=== PATIENT | female | born 1960 | race African-American/Black ===

== ENCOUNTER 2016-10-09 04:11 | Inpatient (IN) | payer OTHER ==
--- NOTE | 2016-10-09 04:41 | PDOC ---
Attending Attestation - Resident Resident Name: ShmuelmanSom - ED Attending Attestation I have performed the following: I have examined & evaluated the patient, The case was reviewed & discussed with the resident, I agree w/resident's findings & plan, Exceptions are as noted - HPI HPI: 56 yo F history ALS presents with resp distress. As per EMS, the son called as she appeared to be gasping. She had HR 178 when they arrived. They placed her on BiPAP for low O2Sat, and she seemed to improve- less work of breathing, and her HR decreased. The son notes that she has been coughing when she drinks thin liquids recently. She has been tolerating solids PO. No recent fever, cough. She has very limited communication secondary to the ALS, and does not walk. - Physicial Exam PE: GENERAL: Awake, alert, in no acute distress. +BiPAP. HEAD: No signs of trauma EYES: PERRLA, EOMI, sclera anicteric, conjunctiva clear ENT: Auricles normal inspection, hearing grossly normal, nares patent, oropharynx clear without exudates. Dry mucosa NECK: Normal ROM, supple, no lymphadenopathy, JVD, or masses LUNGS: Dec air entry diffusely, but worse on L side. HEART: Tachycardic, normal S1 and S2, no murmurs, rubs or gallops ABDOMEN: Soft, nontender, normoactive bowel sounds. No guarding, no rebound. No masses EXTREMITIES: Normal range of motion, no edema. No clubbing or cyanosis. No cords, erythema, or tenderness NEUROLOGICAL: Limited by ALS. Patient is able to track with her eyes. SKIN: Warm, Dry, normal turgor, no rashes or lesions noted. - Medical Decision Making Patient with ALS, noted to have labored respirations with dec air entry on L side. Will start sepsis workup, likely admission.
[2016-10-09 05:03] LABS: VENOUS BLOOD GAS HCO3 30.3 meq/L (19-25); VENOUS PH 7.32 (7.32-7.42)
--- NOTE | 2016-10-09 05:04 | PDOC ---
History of Present Illness <Aaliyah Rodrigez - Last Filed: 10/09/16 06:28> - General History Source: EMS, Family (Son) - History of Present Illness Initial Comments: 10/09/16 04:51 The patient is a 56F with a PMH of ALS, HTN, and hypothyroidism who presents to the ED via EMS for increased work of breathing. Per EMS, the patient had increased work of breathing on their arrival, she was tachypneic, tachycardic into the 170's, and was satting around 88. She also had decreased lung sounds. Per the son, she has had recent difficulty with clearing mucous in her nose and throat and they use a machine to assist with this. During the use of the machine tonight around 2300, the son noticed that the patient wasn't well. Around 0300 the son was woken up by the patient's and they called EMS. The son stated that on /Saturday, he noticed that the patient's breathing was changing and stated that she was gasping and using accessory muscles to breath. No sick contacts, no recent travel. The patient has a history of bedrest , no history of cancer. Allergies: NKDA Surg: noncontributory Social: does not drink, smoke, or use recreational drugs <Som Fitzgerald - Last Filed: 10/09/16 06:46> - General Chief Complaint: Respiratory Distress Stated Complaint: DIFFICULTY BREATHING Time Seen by Provider: 10/09/16 04:38 Past History <Aaliyah Rodrigez - Last Filed: 10/09/16 06:28> - Past Medical History Thyroid Disease: Yes (HYPO) - Psycho/Social/Smoking Cessation Hx Anxiety: No Suicidal Ideation: No Smoking Status: No Smoking History: Unknown if ever smoked Have you smoked in the past 12 months: No Number of Cigarettes Smoked Daily: 0 Information on smoking cessation initiated: No Hx Alcohol Use: No Drug/Substance Use Hx: No Substance Use Type: None Hx Substance Use Treatment: No <Som Fitzgerald - Last Filed: 10/09/16 06:46> - Past Medical History Allergies/Adverse Reactions: Allergies Allergy/AdvReac Type Severity Reaction Status Date / Time No Known Allergies Allergy Verified 10/09/16 04:25 Home Medications: Ambulatory Orders Amlodipine Besylate [Norvasc -] 5 mg PO DAILY 10/09/16 Lisinopril [Prinivil] 10 mg PO DAILY 10/09/16 Review of Systems - Review of Systems Able to Perform ROS?: Yes (Limited ROS) Is the patient limited [place]er proficient: No Constitutional: Yes: Other (Cold symptoms). No: Chills, Fever, Loss of Appetite Respiratory: Yes: Shortness of Breath, SOB at Rest. No: Cough Cardiac (ROS): No: Chest Pain ABD/GI: Yes: Other (abd pain) : No: Dysuria, Discharge <Som Fitzgerald - Last Filed: 10/09/16 06:46> *Physical Exam - Vital Signs Last Vital Signs Temp Pulse Resp BP Pulse Ox 96.8 F L 98 H 22 100/78 100 10/09/16 04:25 10/09/16 06:21 10/09/16 06:21 10/09/16 06:21 10/09/16 06:21 <Aaliyah Rodrigez - Last Filed: 10/09/16 06:28> - Vital Signs Last Vital Signs Temp Pulse Resp BP Pulse Ox 96.8 F L 118 H 28 H 141/94 99 10/09/16 04:25 10/09/16 04:25 10/09/16 04:25 10/09/16 04:25 10/09/16 04:32 - Physical Exam General Appearance: Yes: Nourished, Mild Distress, Other (Bipap machine in place ) HEENT: positive: Hearing Grossly Normal Respiratory/Chest: positive: Respiratory Distress. negative: Normal Breath Sounds (Limited lung exam d/t patient's habitus and position), Accessory Muscle Use Cardiovascular: positive: Regular Rhythm, S1, S2, Tachycardia Gastrointestinal/Abdominal: positive: Flat, Soft. negative: Tender Extremity: positive: Swelling (R calf slightly larger than L calf). negative: Calf Tenderness Neurologic: positive: Alert <Som Fitzgerald - Last Filed: 10/09/16 06:46> Heart Score/ECG Review - ECG Impressions Tachycardia: Sinus Comment:: 10/09/16 05:13 enlarged p wave w/ 2 peaks may be indicative of atrial enlargement. p wave inversion in V1 and V2. could be 2/2 to lead placement. <Som Fitzgerald - Last Filed: 10/09/16 06:46> ED Treatment Course - LABORATORY CBC & Chemistry Diagram: 10/09/16 04:51 10/09/16 04:51 - ADDITIONAL ORDERS Additional order review: Laboratory Results 10/09/16 10/09/16 10/09/16 04:51 04:51 04:51 INR PTT (Actin FS) D-Dimer < 200 VBG pH 7.32 POC VBG pCO2 60.8 H* POC VBG pO2 40.5 Mixed VBG HCO3 30.3 H Sodium Potassium Chloride Carbon Dioxide Anion Gap BUN Creatinine Creat Clearance w eGFR Random Glucose Lactic Acid Calcium Total Bilirubin AST ALT Alkaline Phosphatase Creatine Kinase Troponin I B-Natriuretic Peptide 176.02 H Total Protein Albumin 10/09/16 10/09/16 10/09/16 04:51 04:51 04:51 INR 1.05 PTT (Actin FS) 26.7 L D-Dimer VBG pH POC VBG pCO2 POC VBG pO2 Mixed VBG HCO3 Sodium 141 Potassium 4.0 Chloride 102 Carbon Dioxide 29 Anion Gap 10 BUN 12 Creatinine 0.3 L Creat Clearance w eGFR > 60 Random Glucose 158 H Lactic Acid 1.5 Calcium 9.3 Total Bilirubin 0.3 AST 20 ALT 25 Alkaline Phosphatase 129 H Creatine Kinase 68 Troponin I < 0.02 B-Natriuretic Peptide Total Protein 7.8 Albumin 3.6 10/09/16 04:51 RBC 5.10 MCV 93.2 MCHC 32.1 RDW 15.1 MPV 9.8 Neutrophils % 86.7 H Lymphocytes % 7.9 L Monocytes % 4.6 Eosinophils % 0.1 Basophils % 0.7 - RADIOLOGY Radiology Studies Ordered: Category Date Time Status CHEST X-RAY PORTABLE* [RAD] Stat Radiology 10/09/16 04:34 Taken - Medications Given in the ED: ED Medications Discontinued Medications Generic Name Dose Route Start Last Admin Trade Name Freq PRN Reason Stop Dose Admin Diltiazem HCl 10 mg 10/09/16 06:15 10/09/16 06:20 Cardizem Injection - IVPUSH 10/09/16 06:16 10 mg ONCE ONE Administration <Aaliyah Rodrigez - Last Filed: 10/09/16 06:28> - LABORATORY CBC & Chemistry Diagram: 10/09/16 04:51 10/09/16 04:51 <Som Fitzgerald - Last Filed: 10/09/16 06:46> Medical Decision Making - Medical Decision Making 10/09/16 06:28 Pt has had multiple episodes of afib that have been self-limited, max heart rate in 180s. Two pushes of cardizem given, but each time the afib broke before the injection was complete. Case already discussed with Dr. Wolfe, during the call patient went into afib. I subsequently discussed with Dr. Zendejas, who approved for ICU. <Aaliyah Rodriegz - Last Filed: 10/09/16 06:28> - Medical Decision Making 10/09/16 05:14 Patient is a 56F with a PMH of HTN, ALS, and hypotension who presents via EMS with increased work of breathing. Due to the patient's difficulty in controlling her throat muscles, aspiration pna is high on the differential. In addition to this, the patient's bedrest increases her likelihood of having a PE. This will be worked up when other workups have returned as negative. The sepsis protocol is being followed. I will update the family as results come in. 10/09/16 05:47 Patient has a white count of 10.9. CXR shows infiltrate on the L upper lobe and L pleural effusion. 10/09/16 06:22 ICU attending was called and approves admission. 10/09/16 06:45 Patient was signed out to day team. Pending bed upstairs. <Som Fitzgerald - Last Filed: 10/09/16 06:46> *DC/Admit/Observation/Transfer - Discharge Dispostion Admit: Yes <Aaliyah Rodrigez - Last Filed: 10/09/16 06:28> - Discharge Dispostion Admit: Yes - Transfer to Acute Care Facility Accepting Physician:: howard - Attestations Physician Attestion: 10/09/16 06:23 I, Dr. Som Fitzgerald, attest that this document has been prepared under my direction and personally reviewed by me in its entirety. I further attest, that it accurately reflects all work, treatment, procedures and medical decision -making performed by me. <Som Fitzgerald - Last Filed: 10/09/16 06:46> Diagnosis at time of Disposition: Paroxysmal atrial fibrillation, Pleural effusion - Discharge Dispostion Condition at time of disposition: Critical - Referrals
[2016-10-09 05:11] LABS: BASOPHIL 0.7 % (0-2.0); EOSINOPHIL 0.1 % (0-4.5); MCH 29.9 pg (25.7-33.7); MCHC 32.1 g/dl (32.0-36.0); MEAN CELL VOLUME 93.2 fl (80-96); MEAN PLT VOLUME 9.8 fl (7.5-11.1); NEUTROPHILS 86.7 % (42.8-82.8); PLATELET COUNT 238 K/MM3 (134-434); RDW 15.1 % (11.6-15.6); WHITE BLOOD COUNT 10.9 K/mm3 (4.0-10.0)
[2016-10-09 05:20] LABS: INR 1.05 (0.82-1.09); PROTHROMBIN TIME (PATIENT) 11.6 SEC (9.98-11.88)
[2016-10-09 05:23] LABS: ACTIVATED PTT 26.7 SECONDS (26.9-34.4)
[2016-10-09 05:37] LABS: ALBUMIN 3.6 g/dl (3.4-5.0); ANION GAP 10 (8-16); BILIRUBIN,TOTAL 0.3 mg/dL (0.2-1.0); CALCIUM 9.3 mg/dL (8.5-10.1); CO2 29 mmol/L (21-32); CREATININE 0.3 mg/dL (0.55-1.02); GLUCOSE,RANDOM 158 mg/dL (74-106); SGOT/AST 20 U/L (15-37); SGPT/ALT 25 U/L (12-78); TOT PROT 7.8 g/dl (6.4-8.2)
[2016-10-09 05:39] LABS: ALK PHOS 129 U/L (45-117); TROPONIN I < 0.02 ng/ml (0.00-0.05)
[2016-10-09] MEDS ORDERED: dilTIAZem HCL 50 MG/10 ML - 10 ML VIAL IVPUSH ONE ×3 (06:15→09:30)
[2016-10-09] MEDS: DEXTROSE 5%-0.45% SALINE 1,000 ML IV SCH ×2 (06:43→23:10)
[2016-10-09 07:15] LABS: ARTERIAL BLD GAS O2 SATURATION 99.8 % (90-98.9); ARTERIAL BLOOD GAS BASE EXCESS 3.7 meq/l (-2-2); ARTERIAL BLOOD GAS HCO3 29.8 meq/L (22-26); ARTERIAL BLOOD GAS pH 7.37 (7.35-7.45)
[2016-10-09 07:32] LABS: ALLENS TEST POSITIVE; ART PUNCT SITE RIGHT RADIAL; LPM/O2% 35%; METHEMOGLOBIN 0.9 % (0.4-1.5); PT. ON O2? YES
[2016-10-09 07:33] LABS: VENT RATE 14
[2016-10-09] MEDS: DILTIAZEM INJECTION 125 MG in DEXTROSE 5%-WATER - 100 ML IVPB SCH ×2 (09:00→23:11)
--- NOTE | 2016-10-09 09:10 | PN ---
Physical Exam: SUBJECTIVE: Patient seen and examined OBJECTIVE: Vital Signs Period Temp Pulse Resp BP Sys/Hatch Pulse Ox Last 24 Hr 97.6 F 97 18 117/88 100 GENERAL: The patient is awake, alert, and fully oriented, in no acute distress. HEAD: Normal with no signs of trauma. EYES: PERRL, extraocular movements intact, sclera anicteric, conjunctiva clear. No ptosis. ENT: Ears normal, nares patent, oropharynx clear without exudates, moist mucous membranes. NECK: Trachea midline, full range of motion, supple. LUNGS: Breath sounds equal, clear to auscultation bilaterally, no wheezes, no crackles, no accessory muscle use. HEART: Regular rate and rhythm, S1, S2 without murmur, rub or gallop. ABDOMEN: Soft, nontender, nondistended, normoactive bowel sounds, no guarding, no rebound, no hepatosplenomegaly, no masses. EXTREMITIES: 2+ pulses, warm, well-perfused, no edema. NEUROLOGICAL: Cranial nerves II through XII grossly intact. Normal speech, gait not observed. PSYCH: Normal mood, normal affect. SKIN: Warm, dry, normal turgor, no rashes or lesions noted Laboratory Results - last 24 hr 10/09/16 07:00 Puncture Site Right radial ABG pH 7.37 ABG pCO2 at Pt Temp 52.4 H ABG pO2 at Pt Temp 150.0 H ABG HCO3 29.8 H ABG O2 Sat (Measured) 99.8 H* ABG O2 Content 20.9 ABG Base Excess 3.7 H Corwin Test Positive Carboxyhemoglobin 1.5 Methemoglobin 0.9 O2 Delivery Device Bipap 12/6 Oxygen Flow Rate 35% Vent Rate 14 PEEP 0.0 Active Medications Generic Name Dose Route Start Last Admin Trade Name Freq PRN Reason Stop Dose Admin Amlodipine Besylate 5 mg 10/09/16 10:00 Norvasc - PO DAILY [facility] Heparin Sodium (Porcine) 5,000 unit 10/09/16 10:00 Heparin - SQ BID [facility] Azithromycin 250 mls @ 250 mls/hr 10/09/16 10:00 Zithromax 500mg Ivpb (Pre-Docked) IVPB DAILY [facility] Ceftriaxone Sodium 50 mls @ 100 mls/hr 10/09/16 10:00 Rocephin 1gm Ivpb (Pre-Docked) IVPB DAILY [facility] Dextrose/Sodium Chloride 1,000 mls @ 75 mls/hr 10/09/16 06:45 10/09/16 06:43 D5-1/2ns - IV 75 mls/hr ASDIR SILVIA Administration Lisinopril 10 mg 10/09/16 10:00 Prinivil PO DAILY [facility] ASSESSMENT/PLAN: Problem List - Problems (1) Paroxysmal atrial fibrillation Code(s): I48.0 - PAROXYSMAL ATRIAL FIBRILLATION Visit type - Emergency Visit Emergency Visit: No - New Patient This patient is new to me today: Yes Date on this admission: 10/09/16 - Critical Care Critical Care patient: Yes Total Critical Care Time (in minutes): 45 Critical Care Statement: The care of this patient involved high complexity decision making to prevent further life threatening deterioration of the patient 's condition and/or to evalute & treat vital organ system(s) failure or risk of failure.
--- NOTE | 2016-10-09 09:11 | CONSULT ---
Consultation: REQUESTING PROVIDER: Dr. Wolfe CONSULT REQUEST: We have been asked to medically evaluate this patient for respiratory distress and paroxysmal atrial fibrillation in the ICU. HISTORY OF PRESENT ILLNESS: 56 year old female with a past medical history of amyotrophic lateral sclerosis , hypertension, and hyperthyroidism (previously on 5mg methimazole) presented this morning to the ED due to tachycardia, tachypnea, and increased work of breathing. Her O2 saturation was found to be 88%. She was transferred to the ICU with new onset paroxysmal atrial fibrillation (88bpm-170bpm). Pt was given several cardizem pushes and began on cardizem drip. Her rate stabilized. Pt is currently in no acute distress and denies any chest pain, SOB, wheezing, fever, chills, leg pain. Allergies: NKDA REVIEW OF SYSTEMS: CONSTITUTIONAL: Absent: fever, chills, diaphoresis, generalized weakness, malaise, loss of appetite, weight change HEENT: Absent: rhinorrhea, nasal congestion, throat pain, throat swelling, difficulty swallowing, mouth swelling, ear pain, eye pain, visual changes CARDIOVASCULAR: palpitations, irregular heart rate Absent: chest pain, syncope, lightheadedness, peripheral edema RESPIRATORY: Absent: cough, dyspnea with exertion, orthopnea, wheezing, stridor, hemoptysis, shortness of breath GASTROINTESTINAL: Absent: abdominal pain, abdominal distension, nausea, vomiting, diarrhea, constipation, melena, hematochezia GENITOURINARY: Absent: dysuria, frequency, urgency, hesitancy, hematuria, flank pain, genital pain MUSCULOSKELETAL: Absent: myalgia, arthralgia, joint swelling, back pain, neck pain SKIN: Absent: rash, itching, pallor HEMATOLOGIC/IMMUNOLOGIC: Absent: easy bleeding, easy bruising, lymphadenopathy, frequent infections ENDOCRINE: Absent: unexplained weight gain, unexplained weight loss, heat intolerance, cold intolerance NEUROLOGIC: weakness due to ALS Absent: headache, dizziness, seizure, mental status changes, bladder or bowel incontinence PSYCHIATRIC: Absent: anxiety, depression, suicidal or homicidal ideation, hallucinations. PHYSICAL EXAMINATION Vital Signs - 24 hr 10/09/16 10/09/16 07:37 07:40 Temperature 97.6 F Pulse Rate 97 H Respiratory 18 Rate Blood Pressure 117/88 O2 Sat by Pulse 100 Oximetry (%) GENERAL: Awake, alert, in no acute distress. HEAD: Normal with no signs of trauma. EYES: Pupils equal, round and reactive to light, extraocular movements intact, sclera anicteric, conjunctiva clear. No lid lag. EARS, NOSE, THROAT: Ears normal, nares patent, oropharynx clear without exudates. Moist mucous membranes. NECK: Normal range of motion, supple without lymphadenopathy, JVD, or masses. LUNGS: Breath sounds equal, clear to auscultation bilaterally. No wheezes, and no crackles. No accessory muscle use. HEART: Irregular rate/rhythm, normal S1 and S2 without murmur, rub or gallop. ABDOMEN: Soft, nontender, not distended, normoactive bowel sounds, no guarding, no rebound, no masses. No hepatomegaly or splenomegaly. MUSCULOSKELETAL: No bony deformities or tenderness. No CVA tenderness. UPPER EXTREMITIES: 2+ pulses, warm, well-perfused. No cyanosis. No clubbing. Cap refill <2 seconds. No peripheral edema. LOWER EXTREMITIES: 2+ pulses, warm, well-perfused. No calf tenderness. No peripheral edema. NEUROLOGICAL: Cranial nerves II-XII intact. Speech limited due to neurological status. Unable to assess gait due to neurological status. PSYCHIATRIC: Cooperative. Good eye contact. SKIN: Warm, dry, normal turgor, no rashes or lesions noted. CBC, BMP 10/09/16 04:51 10/09/16 04:51 TSH 0.61 (0.358-3.74) Active Medications Generic Name Dose Route Start Last Admin Trade Name Freq PRN Reason Stop Dose Admin Amlodipine Besylate 5 mg 10/09/16 10:00 Norvasc - PO DAILY [facility] Heparin Sodium (Porcine) 5,000 unit 10/09/16 10:00 Heparin - SQ BID [facility] Azithromycin 250 mls @ 250 mls/hr 10/09/16 10:00 Zithromax 500mg Ivpb (Pre-Docked) IVPB DAILY [facility] Ceftriaxone Sodium 50 mls @ 100 mls/hr 10/09/16 10:00 Rocephin 1gm Ivpb (Pre-Docked) IVPB DAILY [facility] Dextrose/Sodium Chloride 1,000 mls @ 75 mls/hr 10/09/16 06:45 10/09/16 06:43 D5-1/2ns - IV 75 mls/hr ASDIR SILVAI Administration Lisinopril 10 mg 10/09/16 10:00 Prinivil PO DAILY [facility] EKG: atrial fibrillation with rate in 140's ASSESSMENT/PLAN: 56 year old female with pmh of HTN, hyperthyroidism ALS. Pt is being monitored in the ICU with shortness of breath and paroxysmal atrial fibrillation resolving Neuro: patient has ALS -unable to ambulate on her own, rotate the patient Cardio: new onset paroxysmal atrial fibrillation likely 2/2 hyperthyroidism vs PE vs sepsis vs aspiration pneumonia -TSH normal, measure free T4 in the AM -US b/l legs to r/u DVT -D/C norvasc -D/C cardizem -Start metoprolol 50mg BID -continue lisinopril 10mg PO FEN: -continue IVF @ 75ml/hr -consult speech and swallow to evaluate for feeding tube necessity Proph: -DC heparin -Start lovenox 70mg BID -cont ceftriaxone and azithromycin Dispo: We will continue to follow the patient. Thank you for this consultative opportunity. Problem List - Problems (1) Paroxysmal atrial fibrillation Code(s): I48.0 - PAROXYSMAL ATRIAL FIBRILLATION Visit type - Emergency Visit Emergency Visit: No - New Patient This patient is new to me today: Yes Date on this admission: 10/09/16 - Critical Care Critical Care patient: Yes Total Critical Care Time (in minutes): 45 Critical Care Statement: The care of this patient involved high complexity decision making to prevent further life threatening deterioration of the patient 's condition and/or to evalute & treat vital organ system(s) failure or risk of failure.
[2016-10-09] MEDS ORDERED: dilTIAZem HCL 125 MG/25 ML - 25 ML VIAL ONE (09:29)
[2016-10-09] MEDS ORDERED: dilTIAZem HCL 125 MG/25 ML - 5 ML VIAL ONE (09:35)
[2016-10-09] MEDS ORDERED: LISINOPRIL 10 MG TABLET (FP) PO SCH (10:00)
[2016-10-09] MEDS ORDERED: AZITHROMYCIN IVPB 250 ML IVPB SCH (10:00)
[2016-10-09] MEDS ORDERED: HEPARIN NA (PORCINE) 5,000 UNITS/ML 1ML VIAL SQ SCH (10:00)
[2016-10-09] MEDS ORDERED: CEFTRIAXONE 50 ML IVPB SCH (10:00)
[2016-10-09] MEDS ORDERED: amLODIPine BESYLATE 5 MG TABLET (FP) PO SCH (10:00)
[2016-10-09] MEDS ORDERED: DILTIAZEM INJECTION 125 MG in DEXTROSE 5%-WATER - 100 ML IVPB SCH (12:15)
[2016-10-09 12:45] VITALS: BMI 23.4
--- NOTE | 2016-10-09 12:55 | HP ---
Admitting History and Physical - Admission Chief Complaint: 56 y.o F with advanced ALS was admitted to [facility] with respiratory distress and PAF-with VR 170.. Admitted to ICU for further management. History of Present Illness: GOiter. Hyperthyroidism on PO Methimazole. 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) Cardiovascular: Yes: HTN, Hyperlipdemia Gastrointestinal: No: Ascites, Cancer, Constipation, Crohn's Disease, Diverticulitis, Diverticulosis, Esophageal Varices, Gastritis, GERD, GI Bleed, Hemorrhoids, Hiatal Hernia, Inflamatory Bowel Disease, Irritable Bowel Disease, Pancreatitis, Peptic Ulcer Disease, Ulcerative Colitis, Other Hepatobiliary: No: Cirrhosis, Cholelithiasis, Cholecystitis, Choledocholithiasis , Hepatitis A, Hepatitis B, Hepatitis C, Other Renal/: No: Renal Failure, Renal Inusuff, BPH, Cancer, Hematuria, Hemodialysis , Neurogenic Bladder, Renal Calculi, UTI, Other Heme/Onc: No: Anemia, B12 Deficiency, Bleeding Disorder, Cancer, Current Chemotherapy, Current Radiation Therapy, Hemochromatosis, Hypercoaguable State, Myeloproliferative Synd, Sickle Cell Disease, Sickle Cell Trait, Thrombocytopenia, Other Infectious Disease: No: AIDS, C-Diff, Herpes Zoster, HIV, MRSA, STD's, Tuberculosis, VREF, Other Psych: No: Addictions, Anxiety, Bipolar, Depression, Panic, Psychosis, Schizophrenia, Other Musculoskeletal: No: Bursitis, Chronic low back pain, Hemiparesis, Hemiplegia, Osteoarthritis, Paraplegia, Other Rheumatology: No: Fibromyalgia, Gout, Lupus, Rheumatoid Arthritis, Sarcoidosis, Vasculitis, Other Endocrine: Yes: Hyperthyroidism - Smoking History Smoking history: Unknown if ever smoked Have you smoked in the past 12 months: No Aproximately how many cigarettes per day: 0 - Alcohol/Substance Use Hx Alcohol Use: No Home Medications - Allergies Allergies/Adverse Reactions: Allergies Allergy/AdvReac Type Severity Reaction Status Date / Time No Known Allergies Allergy Verified 10/09/16 04:25 - Home Medications Home Medications: Ambulatory Orders Amlodipine Besylate [Norvasc -] 5 mg PO DAILY 10/09/16 Lisinopril [Prinivil] 10 mg PO DAILY 10/09/16 Review of Systems Findings/Remarks: On BIPAP, ALS - Review of Systems Constitutional: reports: Lethargy, Weakness Physical Examination Vital Signs: Vital Signs Temperature 98.4 F 10/09/16 09:00 Pulse Rate 81 10/09/16 12:00 Respiratory Rate 18 10/09/16 12:00 Blood Pressure 119/58 10/09/16 12:00 O2 Sat by Pulse Oximetry (%) 100 10/09/16 11:51 Constitutional: Yes: Moderate Distress. No: Thin Eyes: Yes: Conjunctiva Clear, EOM Intact HENT: Yes: Atraumatic, Normocephalic Neck: Yes: Supple, Trachea Midline. No: Lymphadenopathy Cardiovascular: Yes: Tachycardia, Pulse Irregular. No: JVD Respiratory: Yes: CTA Bilaterally, On BiPap Gastrointestinal: Yes: Normal Bowel Sounds, Soft. No: Ascites, Palpable Mass, Pulsatile Mass, Splenomegaly, Tenderness ...Rectal Exam: Yes: Deferred Renal/: No: Anuria, Bladder Distention, CVA Tenderness - Left, CVA Tenderness - Right Breast(s): Yes: WNL Musculoskeletal: No: Back Pain, Joint Stiffness Extremities: No: Amputation, Calf Tenderness, Cold, Cyanosis Edema: No Peripheral Pulses WNL: Yes Integumentary: Yes: WNL Neurological: Yes: Alert Psychiatric: Yes: Alert. No: Agitated Imaging - Results Chest X-ray: Report Reviewed, Image Reviewed EKG: Image Reviewed Problem List - Problems (1) Paroxysmal atrial fibrillation Assessment/Plan: Probably due to chronic hyperthyroidism, though controlled/ Will Continue Lovenox, Metoprolol Code(s): I48.0 - PAROXYSMAL ATRIAL FIBRILLATION (2) Respiratory failure Assessment/Plan: Chronic hypercarbia with acute hypoxemia related to the episode of rapid A.Fib Less likely PE-D-dimers <200 or PNA Will wait fot chest CTA-if no PNA-d/c ABX Code(s): J96.90 - RESPIRATORY FAILURE, UNSP, UNSP W HYPOXIA OR HYPERCAPNIA Qualifiers: Chronicity: acute Respiratory failure complication: hypoxia and hypercapnia Qualified Code(s): J96.01 - Acute respiratory failure with hypoxia; J96.02 - Acute respiratory failure with hypercapnia (3) ALS (amyotrophic lateral sclerosis) Assessment/Plan: Dr Carr consult Swallow eval. Peg requested by the -I discussed with him and the patient the treatment. Code(s): G12.21 - AMYOTROPHIC LATERAL SCLEROSIS Assessment/Plan 56 y.o F wit advanced ALS, HTN, Hyperthyroidism, presented with acute respiratory distress, chronic respiratory acidosis, Paroxysmal fast atrial fibrillation. Her HR is now in SR and VR controlled with frequent APC. Will Controll V-rate, Start A/C, d-dimers < 200- , but a-a O2 difference 39 ( expected 14.5) PNA, CHF and PE is in differential diagnosis ECHO-P, re LV systolic Fx, and RV fx.
[2016-10-09] MEDS ORDERED: PNEUMOC 13-VAL CONJ-DIP CRM/PF 0.5 ML DISP.SYRIN IM ONE (14:00)
--- NOTE | 2016-10-09 14:15 | PN ---
Teaching Attending Note Name of Resident: Junito Prieto ATTENDING PHYSICIAN STATEMENT I saw and evaluated the patient. I reviewed the resident's note and discussed the case with the resident. I agree with the resident's findings and plan as documented. SUBJECTIVE: Patient seen and examined in the ICU. In brief. 56 F, amyotrophic lateral sclerosis (progressively worsening over the past 2 years), hypertension, and hyperthyroidism (previously on 5mg methimazole). Admitted via the ER due to new onset AFib. Appeared to be in acute respiratory distress so was placed on NIPPV. Now seen in the ICU. She is awake and responsive on NIPPV. She denies current CP or SOB. Her son is at the bedside. She is being placed on a Cardizem drip for Rapid AFib. Intake & Output 10/06/16 10/07/16 10/08/16 10/09/16 23:59 23:59 23:59 23:59 Weight 154 lb Last Vital Signs Temp Pulse Resp BP Pulse Ox 98.4 F 83 18 119/58 100 10/09/16 09:00 10/09/16 13:35 10/09/16 12:00 10/09/16 12:00 10/09/16 13:35 Active Medications Enoxaparin Sodium (Lovenox -) 70 mg SQ BID [facility] Azithromycin (Zithromax 500mg Ivpb (Pre-Docked)) 250 mls @ 250 mls/hr IVPB DAILY [facility] Last Admin: 10/09/16 10:08 Dose: 250 mls/hr Ceftriaxone Sodium (Rocephin 1gm Ivpb (Pre-Docked)) 50 mls @ 100 mls/hr IVPB DAILY [facility] Last Admin: 10/09/16 10:11 Dose: 100 mls/hr Dextrose/Sodium Chloride (D5-1/2ns -) 1,000 mls @ 75 mls/hr IV ASDIR [facility] Last Admin: 10/09/16 06:43 Dose: 75 mls/hr Lisinopril (Prinivil) 10 mg PO DAILY [facility] Methimazole (Tapazole -) 10 mg PO DAILY [facility] Metoprolol Tartrate (Lopressor -) 50 mg PO BID [facility] GENERAL: Awake, alert, on NIPPV HEAD: Normal with no signs of trauma. EYES: Pupils equal, round and reactive to light, extraocular movements intact, sclera anicteric, conjunctiva clear. No lid lag. EARS, NOSE, THROAT: Ears normal, nares patent, oropharynx clear without exudates. Moist mucous membranes. NECK: Normal range of motion, supple without lymphadenopathy, JVD, or masses. LUNGS: Breath sounds equal, clear to auscultation bilaterally. No wheezes, and no crackles. No accessory muscle use. HEART: AFib, No murmur, rub or gallop. ABDOMEN: Soft, nontender, not distended, normoactive bowel sounds, no guarding, no rebound, no masses. No hepatomegaly or splenomegaly. MUSCULOSKELETAL: No bony deformities or tenderness. No CVA tenderness. UPPER EXTREMITIES: 2+ pulses, warm, well-perfused. No cyanosis. No clubbing. Cap refill <2 seconds. No peripheral edema. LOWER EXTREMITIES: 2+ pulses, warm, well-perfused. No calf tenderness. No peripheral edema. NEUROLOGICAL: LE weakness PSYCHIATRIC: Cooperative. SKIN: Warm, dry, normal turgor, no rashes or lesions noted. Laboratory Results - last 24 hr 10/09/16 10/09/16 10/09/16 04:51 04:51 04:51 WBC 10.9 H RBC 5.10 Hgb 15.3 Hct 47.6 H MCV 93.2 MCH 29.9 MCHC 32.1 RDW 15.1 Plt Count 238 MPV 9.8 Neutrophils % 86.7 H Lymphocytes % 7.9 L Monocytes % 4.6 Eosinophils % 0.1 Basophils % 0.7 INR 1.05 PTT (Actin FS) 26.7 L D-Dimer Puncture Site ABG pH ABG pCO2 at Pt Temp ABG pO2 at Pt Temp ABG HCO3 ABG O2 Sat (Measured) ABG O2 Content ABG Base Excess Corwin Test VBG pH POC VBG pCO2 POC VBG pO2 Mixed VBG HCO3 Carboxyhemoglobin Methemoglobin O2 Delivery Device Oxygen Flow Rate Vent Rate PEEP Sodium 141 Potassium 4.0 Chloride 102 Carbon Dioxide 29 Anion Gap 10 BUN 12 Creatinine 0.3 L Creat Clearance w eGFR > 60 Random Glucose 158 H Lactic Acid Calcium 9.3 Total Bilirubin 0.3 AST 20 ALT 25 Alkaline Phosphatase 129 H Creatine Kinase 68 Troponin I < 0.02 B-Natriuretic Peptide Total Protein 7.8 Albumin 3.6 TSH 10/09/16 10/09/16 10/09/16 04:51 04:51 04:51 WBC RBC Hgb Hct MCV MCH MCHC RDW Plt Count MPV Neutrophils % Lymphocytes % Monocytes % Eosinophils % Basophils % INR PTT (Actin FS) D-Dimer < 200 Puncture Site ABG pH ABG pCO2 at Pt Temp ABG pO2 at Pt Temp ABG HCO3 ABG O2 Sat (Measured) ABG O2 Content ABG Base Excess Corwin Test VBG pH 7.32 POC VBG pCO2 60.8 H* POC VBG pO2 40.5 Mixed VBG HCO3 30.3 H Carboxyhemoglobin Methemoglobin O2 Delivery Device Oxygen Flow Rate Vent Rate PEEP Sodium Potassium Chloride Carbon Dioxide Anion Gap BUN Creatinine Creat Clearance w eGFR Random Glucose Lactic Acid 1.5 Calcium Total Bilirubin AST ALT Alkaline Phosphatase Creatine Kinase Troponin I B-Natriuretic Peptide Total Protein Albumin TSH 10/09/16 10/09/16 10/09/16 04:51 06:15 07:00 WBC RBC Hgb Hct MCV MCH MCHC RDW Plt Count MPV Neutrophils % Lymphocytes % Monocytes % Eosinophils % Basophils % INR PTT (Actin FS) D-Dimer Puncture Site Right radial ABG pH 7.37 ABG pCO2 at Pt Temp 52.4 H ABG pO2 at Pt Temp 150.0 H ABG HCO3 29.8 H ABG O2 Sat (Measured) 99.8 H* ABG O2 Content 20.9 ABG Base Excess 3.7 H Corwin Test Positive VBG pH POC VBG pCO2 POC VBG pO2 Mixed VBG HCO3 Carboxyhemoglobin 1.5 Methemoglobin 0.9 O2 Delivery Device Bipap 12/6 Oxygen Flow Rate 35% Vent Rate 14 PEEP 0.0 Sodium Potassium Chloride Carbon Dioxide Anion Gap BUN Creatinine Creat Clearance w eGFR Random Glucose Lactic Acid Calcium Total Bilirubin AST ALT Alkaline Phosphatase Creatine Kinase Troponin I B-Natriuretic Peptide 176.02 H Total Protein Albumin TSH 0.61 ASSESSMENT/PLAN: New onset Rapid AFib (?) VTE ALS HTN Hyperthyroidism (?) PNA Cardizem CTA Lovenox BID Check TFTs US of the LE Start metoprolol 50 mg BID IVF ABX coverage Check cultures Aspiration precautions Dr Grant Total Critical Care Time (in minutes): 45 Critical Care Statement: The care of this patient involved high complexity decision making to prevent further life threatening deterioration of the patient 's condition and/or to evalute & treat vital organ system(s) failure or risk of failure.
--- NOTE | 2016-10-09 16:00 | CON.CARD ---
Consult Consult Specialty:: Cardiology Referred by:: Dr. Wolfe Reason for Consultation:: Afib with RVR - History of Present Illness Chief Complaint: SOB, Hypoxia, tachycardia History of Present Illness: 56 year old woman with a history of advanced ALS, HTN, HLD, hyperthyroid on methimazole admitted with sob, hypoxia, and tachycardia and found to have PAFib with RVR. Pt. was started on cardizem gtt and Lovenox. She has been going in and out of Afib with RVR throughout the day. She was seen and examined in the ICU after returning from CTA chest. CTA chest preliminarily as per staff showed no PE. Pt currently comfortable lying in bed on bipap. - History Source History Provided By: Patient, Medical Record Limitations to Obtaining History: Clinical Condition - Past Medical History CLINICAL NEUROPSYCHOLOGIST: Yes: Other (ALS) Cardio/Vascular: Yes: HTN, Hyperlipdemia Endocrine: Yes: Hyperthyroidism - Alcohol/Substance Use Hx Alcohol Use: No - Smoking History Smoking history: Unknown if ever smoked Have you smoked in the past 12 months: No Aproximately how many cigarettes per day: 0 - Social History ADL: Family Assistance History of Recent Travel: No Home Medications - Allergies Allergies/Adverse Reactions: Allergies Allergy/AdvReac Type Severity Reaction Status Date / Time No Known Allergies Allergy Verified 10/09/16 04:25 - Home Medications Home Medications: Ambulatory Orders Amlodipine Besylate [Norvasc -] 5 mg PO DAILY 10/09/16 Lisinopril [Prinivil] 10 mg PO DAILY 10/09/16 Family Disease History - Family Disease History Family History: Denies Review of Systems - Review of Systems Constitutional: reports: Weakness. denies: No Symptoms, Chills, Diaphoresis, Fever, Lethargy, Loss of Appetite, Malaise, Night Sweats, Unintentional Wgt. Loss, Other Eyes: denies: No Symptoms, Blind Spots, Blurred Vision, Double Vision, Eye Pain , Floaters, Photophobia, Recent Change in Vision, Other HENT: denies: No Symptoms, Difficult Swallowing, Ear Discharge, Ear Pain, Epistaxis, Gingival Bleeding, Hearing Loss, Mouth Swelling, Nasal Congestion, Ocular Prosthesis, Throat Pain, Toothache, Ringing in Ears, Other Neck: denies: No Symptoms, Decreased ROM, Lumps, Pain on Movement, Stiffness, Swollen Glands, Tenderness, Other Cardiovascular: reports: Shortness of Breath. denies: No Symptoms, Chest Pain, Edema, Palpitations, Other Respiratory: reports: SOB. denies: No Symptoms, Cough, Exercise Intolerance, Hemoptysis, Orthopnea, PND, Snoring, SOB on Exertion, Wheezing, Other Gastrointestinal: denies: No Symptoms, Abdominal Pain, Bloating, Constipation, Diarrhea, Dysphagia, Indigestion, Melena, Nausea, Rectal Bleeding, Vomiting, Vomiting Blood, Other Genitourinary: denies: No Symptoms, Burning, Discharge, Dysuria, Flank Pain, Frequency, Hematuria, Incontinence, Lesions, Menses, Pain, Testicular Mass, Testicular Pain, Testicular Swelling, Urgency, Vaginal Bleeding, Other Breasts: denies: No Symptoms Reported, See HPI, Breast Implants, Discharge from Nipple, Lumps, Pain, Skin Changes, Other Musculoskeletal: reports: Muscle Weakness. denies: No Symptoms, Back Pain, Crepitus, Decreased ROM, Extremity Pain, Joint Pain, Joint Swelling, Muscle Pain , Muscle Cramps, Other Integumentary: denies: No Symptoms, Blister, Bruising, Change in Color, Eczema, Erythema, Incision, Lesions, Lump, Pallor, Pruritis, Rash, Wound, Other Neurological: reports: Pre-Existing Deficit, Weakness. denies: No Symptoms, Change in LOC, Change in Speech, Confusion, Dizziness, Headache, Incoordination , Numbness, Parasthesia, Seizure, Syncope, Tremors, Unsteady Gait, Other Endocrine: denies: No Symptoms, Excessive Sweating, Flushing, Increased Hunger, Increased Thirst, Intolerance to Cold, Intolerance to Heat, Unexplained Weight Gain, Unexplained Weight Loss, Other Hematology/Lymphatic: denies: No Symptoms, Easily Bruised, Excessive Bleeding, Swollen Glands, Other Psychiatric: denies: No Symptoms, Altered Sleep Pattern, Anxiety, Depression, Hallucinations, Panic, Paranoia, Suicidal, Other - Risk Factors Known Risk Factors: Yes: Hypercholesterolemia, Hypertension Vital Signs: Vital Signs Temperature 98.4 F 10/09/16 09:00 Pulse Rate 83 10/09/16 13:35 Respiratory Rate 10/09/16 12:00 Blood Pressure 119/58 10/09/16 12:00 O2 Sat by Pulse Oximetry (%) 100 10/09/16 13:35 Constitutional: Yes: No Distress, Calm Eyes: Yes: Conjunctiva Clear, EOM Intact HENT: Yes: Atraumatic, Normocephalic Neck: Yes: Supple, Trachea Midline Respiratory: Yes: Regular, Diminished. No: Rales, Rhonchi, Wheezes Gastrointestinal: Yes: Normal Bowel Sounds, Soft. No: Distention, Tenderness Cardiovascular: Yes: Tachycardia, Pulse Irregular. No: Bradycardia, Gallop, Rub , Varicosities JVD: No Carotid Bruit: No PMI: Non-Displaced Heart Sounds: Yes: S1, S2. No: Split S2, S3, S4, Clicks, Gallop, Rub, Bruit Murmur: No: Systolic Murmur, Diastolic Murmur Musculoskeletal: Yes: Muscle Weakness Extremities: Yes: WNL Edema: No Peripheral Pulses WNL: Yes Peripheral Pulses: 2+ Left Doralis Pedis, 2+ Right Dorsalis Pedis Integumentary: Yes: WNL Neurological: Yes: Alert Psychiatric: Yes: Alert - Other Data Labs, Other Data: INR, PTT INR 1.05 (0.82-1.09) 10/09/16 04:51 EKG 1-442 am Sinus tach 113bpm, LAE, NSST EKG 2- 837am Afib 155bpm, NSST, ST dep V5, V6, III, aVF Echo: Pending Imaging - Results Chest X-ray: Report Reviewed, Image Reviewed Cat Scan: Pending EKG: Report Reviewed, Image Reviewed Other: Report Reviewed, Image Reviewed (tele-Pafib with RVR, occ PVC) Assessment/Plan 56 year old woman with a history of advanced ALS, HTN, HLD, hyperthyroid on methimazole admitted with sob, hypoxia, and tachycardia and found to have PAFib with RVR. Pafib with RVR-newly dx -cont cardizem gtt and titrate as needed to achieve HR control -If BP does not tolerate uptitration of cardizem may need to use Digoxin -additionally if BP does not tolerate may benefit from holding Lisinopril (will hold for now) -unknown if pt will tolerate po meds due to weakness and current requirement for bipap -cont full AC with Lovenox for now -f/up official CTA results, prelim negative for PE -f/up echo results -cont tele monitoring while in ICU and when ready plan to transfer to tele floor -TSH wnl, f/up free T4 SOB-uncertain etiology, possible acute decompensated CHF (presume diastolic) secondary to Afib with RVR vs PNA vs PE vs aspiration -f/up CTA results for PE and other chest pathology -cont rate/rhythm control strategy -bipap/supp O2 as needed as per ICU reccs -f/up echo -cardiac enzymes wnl x1, would check 2nd set -hold off on diuresis at this point -re-evaluate once establish adequate rate/rhythm control
--- NOTE | 2016-10-09 16:12 | EKG ---
Test Reason : Blood Pressure : / mmHG Vent. Rate : 155 BPM Atrial Rate : 340 BPM P-R Int : 000 ms QRS Dur : 080 ms QT Int : 296 ms P-R-T Axes : 000 024 251 degrees QTc Int : 475 ms ATRIAL FIBRILLATION WITH RAPID VENTRICULAR RESPONSE ABNORMAL ECG WHEN COMPARED WITH ECG OF 09-OCT-2016 04:42, ATRIAL FIBRILLATION HAS REPLACED SINUS RHYTHM MINIMAL CRITERIA FOR SEPTAL INFARCT ARE NO LONGER PRESENT T WAVE INVERSION NOW EVIDENT IN INFERIOR LEADS T WAVE INVERSION NOW EVIDENT IN LATERAL LEADS F/U TRACING INDICATED Confirmed by MAJO BURTON MD ([id number]) on 10/09/2016 4:12:30 PM Referred By: JULIANNA OCHAO Confirmed By:MAJO BURTON MD
--- NOTE | 2016-10-09 16:20 | EKG ---
Test Reason : Blood Pressure : / mmHG Vent. Rate : 113 BPM Atrial Rate : 113 BPM P-R Int : 128 ms QRS Dur : 072 ms QT Int : 338 ms P-R-T Axes : 074 -04 019 degrees QTc Int : 463 ms SINUS TACHYCARDIA POSSIBLE LEFT ATRIAL ENLARGEMENT LEFT VENTRICULAR HYPERTROPHY CANNOT RULE OUT SEPTAL INFARCT , AGE UNDETERMINED ABNORMAL ECG NO PREVIOUS ECGS AVAILABLE F/U TRACING IF CLINICALLY INDICATED Confirmed by MAJO BURTON MD ([id number]) on 10/09/2016 4:19:55 PM Referred By: Confirmed By:MAJO BURTON MD
--- NOTE | 2016-10-09 18:47 | CONSULT ---
Consult - text type - Consultation Consultation Note: NEUROLOGY CONSULTATION is greatly appreciated: This 54 yo RH woman with h/o hyperthyroidism, hypertension on amlodipine , lisinopril and methimazole is well-known to me with ALS, diagnosed in 2013 after 1-2 years of progressive weakness, dysarthria and dysphagia. When last seen by me (03/07/15) patient was ambulatory with a rolling walker with bilateral footdrop in AFO's. She had nasal dysarthria but could be understood and tongue atrophy. Since then she has [place] [facility] [place] Now, bedbound and fully dependent. Requires turning. Cannot sit unsupported. No speech. Able to swallow pureed foods but aspirates on liquid. Has CPAP at home but family notes the mask "doesn't fit well." Now admitted with increasing dyspnea, tachycardia and atrial fibrillation. Possible pulmonary (LLL) infiltrate/ atalectasis. Now on antibiotics. TSH normal. T4 pending. CK Normal CAMILO: Comfortable in CPAP mask. RR=20 NEURO: Awake, alert, follows all commands. Responds with eye mov'ts, nods. No useful speech. Severe tongue atrophy. Decreased gag Shrugs shoulders. All arm and hand groups around 3/5. Brisk [employer]. Twitch only in both legs- areflexic in legs Normal sensation. IMP: Advanced ALS with severe bulbar involvement. Probably chronic aspiration. Paroxysmal AFib. Suggest: D/C patient with properly fitting mask please. Thick-in supplements for liquid dysphagia. Revisit PEG discussion. Coumadin or NOAC for paroxysmal AFib and DVT prophylaxis. Thank you very much, Hector Carr MD
[2016-10-09] MEDS: ENOXAPARIN NA (PORCINE) 80 MG/0.8 ML DISP.SYRIN SQ SCH (22:00)
[2016-10-09] MEDS: METOPROLOL TARTRATE 50 MG TABLET (FP) PO SCH (23:09)
[2016-10-10 00:45] LABS: URINE APPEARANCE CLEAR; URINE BILIRUBIN NEGATIVE (NEGATIVE); URINE BLOOD NEGATIVE (NEGATIVE); URINE COLOR YELLOW; URINE GLUCOSE (UA) NEGATIVE (NEGATIVE); URINE KETONE NEGATIVE (NEGATIVE); URINE LEUK ESTERASE NEGATIVE (NEGATIVE); URINE NITRITE NEGATIVE (NEGATIVE); URINE PROTEIN NEGATIVE (NEGATIVE); URINE UROBILINOGEN NEGATIVE mg/dL (0.2-1.0)
[2016-10-10 05:40] LABS: BASOPHIL 0.7 % (0-2.0); EOSINOPHIL 1.2 % (0-4.5); MCH 30.4 pg (25.7-33.7); MEAN PLT VOLUME 9.6 fl (7.5-11.1); NEUTROPHILS 63.7 % (42.8-82.8); PLATELET COUNT 219 K/MM3 (134-434); RDW 15.1 % (11.6-15.6)
[2016-10-10 06:01] LABS: ANION GAP 6 (8-16); BILIRUBIN,TOTAL 0.4 mg/dL (0.2-1.0); CALCIUM 8.9 mg/dL (8.5-10.1); CO2 31 mmol/L (21-32); CREATININE 0.2 mg/dL (0.55-1.02); GLUCOSE,RANDOM 109 mg/dL (74-106); SGOT/AST 15 U/L (15-37); SGPT/ALT 22 U/L (12-78); TOT PROT 6.3 g/dl (6.4-8.2)
[2016-10-10 06:02] LABS: ALK PHOS 99 U/L (45-117)
[2016-10-10 06:10] LABS: THYROID STIMULATING HORMONE 2.02 uIU/ml (0.358-3.74)
[2016-10-10] MEDS: DILTIAZEM INJECTION 125 MG in DEXTROSE 5%-WATER - 100 ML IVPB SCH ×2 (07:00→17:40)
[2016-10-10] MEDS ORDERED: D5-1/2NS+10 MEQ KCL - 1,000 ML IV SCH (08:00)
[2016-10-10] MEDS ORDERED: POTASSIUM CHLORIDE TABS 20 MEQ TABLET.ER (FP) PO ONE (08:00)
--- NOTE | 2016-10-10 08:02 | PN ---
Progress Note, Physician Chief Complaint: ON NC-5l/min-comfortable. Cardiology, Neuro and pulm consult appreciated. CTA-Neg for PE and infiltrates. History of Present Illness: GOiter. Hyperthyroidism on PO Methimazole. ALS HTN HLD - Current Medication List Current Medications: Active Medications Enoxaparin Sodium (Lovenox -) 70 mg SQ BID [facility] Last Admin: 10/09/16 22:00 Dose: 70 mg Diltiazem HCl 125 mg/ Dextrose 125 mls @ 5 mls/hr IVPB TITR [facility]; 5 MG/HR PRN Reason: Protocol Last Admin: 10/09/16 23:11 Dose: 5 mls/hr Potassium Chloride/Dextrose/Sod Cl (D5-1/2ns+10 Meq Kcl -) 1,000 mls @ 75 mls/ hr IV ASDIR [facility] Methimazole (Tapazole -) 10 mg PO DAILY [facility] Metoprolol Tartrate (Lopressor -) 50 mg PO BID [facility] Last Admin: 10/09/16 23:09 Dose: Not Given - Objective Vital Signs: Vital Signs Temperature 98.6 F 10/10/16 06:00 Pulse Rate 68 10/10/16 06:00 Respiratory Rate 25 H 10/10/16 06:00 Blood Pressure 103/61 10/10/16 06:00 O2 Sat by Pulse Oximetry (%) 100 10/10/16 06:17 Constitutional: Yes: Calm, Mild Distress Eyes: Yes: Conjunctiva Clear, EOM Intact HENT: Yes: Atraumatic, Normocephalic, Hoarseness. No: Drooling Neck: Yes: Supple, Trachea Midline. No: Lymphadenopathy Cardiovascular: Yes: Regular Rate and Rhythm, Pulse Irregular. No: Bradycardia , Tachycardia Respiratory: Yes: Regular, CTA Bilaterally Gastrointestinal: Yes: Normal Bowel Sounds, Soft. No: Abdomen, Obese, Ascites ...Rectal Exam: Yes: Deferred Breast(s): Yes: WNL Musculoskeletal: No: Back Pain Extremities: No: Calf Tenderness, Cold, Cyanosis Edema: No Peripheral Pulses WNL: No Integumentary: Yes: WNL Neurological: Yes: Alert, Dysarthria. No: Seizure, Unresponsive Psychiatric: Yes: Alert Labs: CBC, BMP 10/10/16 05:05 10/10/16 05:05 INR, PTT INR 1.05 (0.82-1.09) 10/09/16 04:51 - ....Imaging Cat Scan: Report Reviewed Problem List - Problems (1) Paroxysmal atrial fibrillation Assessment/Plan: Probably due to chronic hyperthyroidism, though controlled/ Will Continue Lovenox, Metoprolol Transfer to telemetry. Code(s): I48.0 - PAROXYSMAL ATRIAL FIBRILLATION (2) Respiratory failure Assessment/Plan: Chronic hypercarbia with acute hypoxemia related to the episode of rapid A.Fib Less likely PE-D-dimers <200 or PNA continue NC O2. Code(s): J96.90 - RESPIRATORY FAILURE, UNSP, UNSP W HYPOXIA OR HYPERCAPNIA Qualifiers: Chronicity: acute Respiratory failure complication: hypoxia and hypercapnia Qualified Code(s): J96.01 - Acute respiratory failure with hypoxia (3) ALS (amyotrophic lateral sclerosis) Assessment/Plan: Dr Carr consult appreciated Swallow eval. Peg requested by the -I discussed with him and the patient the treatment. GI consult for PEG Code(s): G12.21 - AMYOTROPHIC LATERAL SCLEROSIS (4) Hypokalemia Assessment/Plan: Replete K Code(s): E87.6 - HYPOKALEMIA (5) Bacteremia Assessment/Plan: 1 set bld cx GPC in clusters- Staph-r/o contamination-pt is doing clinically well. R/o Staph epi Obtain 1 more set bld cx Vanco IV x1 Code(s): R78.81 - BACTEREMIA
--- NOTE | 2016-10-10 08:15 | PN ---
Physical Exam: SUBJECTIVE: 56 year old female with a past medical history of amyotrophic lateral sclerosis , hypertension, and hyperthyroidism presented yesterday morning to the ED due to tachycardia, tachypnea, and increased work of breathing. Her O2 saturation was found to be 88%. She was transferred to the ICU with new onset paroxysmal atrial fibrillation (88bpm-170bpm). She was given several cardizem pushes and began on cardizem drip. Her rate stabilized. Pt is currently in no acute distress and denies any chest pain, SOB, wheezing, fever, chills, leg pain. Allergies: NKDA OBJECTIVE: Vital Signs Period Temp Pulse Resp BP Sys/Hatch Pulse Ox Last 24 Hr 98 F-98.6 F 68-146 18-25 94-136/52-91 96-100 GENERAL: The patient is awake, alert, and fully oriented, in no acute distress. HEAD: Normal with no signs of trauma. EYES: PERRL, extraocular movements intact, sclera anicteric, conjunctiva clear. No ptosis. ENT: Ears normal, nares patent, oropharynx clear without exudates, moist mucous membranes. NECK: Trachea midline, full range of motion, supple. LUNGS: Breath sounds equal, clear to auscultation bilaterally, no wheezes, no crackles, no accessory muscle use. HEART: Regular rate and rhythm, S1, S2 without murmur, rub or gallop. ABDOMEN: Soft, nontender, nondistended, normoactive bowel sounds, no guarding, no rebound, no hepatosplenomegaly, no masses. EXTREMITIES: 2+ pulses, warm, well-perfused, no edema. NEUROLOGICAL: Cranial nerves II through XII grossly intact. Normal speech, gait not observed due to physical status, absent reflexes in b/l lower extremities, muscle strength 3/5 in b/l UE PSYCH: Normal mood, normal affect. SKIN: Warm, dry, normal turgor, no rashes or lesions noted Laboratory Results - last 24 hr 10/09/16 10/10/16 10/10/16 23:00 05:05 05:05 WBC 8.0 RBC 4.34 Hgb 13.2 D Hct 39.9 D MCV 92.0 MCH 30.4 MCHC 33.0 RDW 15.1 Plt Count 219 MPV 9.6 Neutrophils % 63.7 D Lymphocytes % 24.7 D Monocytes % 9.7 D Eosinophils % 1.2 D Basophils % 0.7 Sodium 140 Potassium 3.2 L Chloride 103 Carbon Dioxide 31 Anion Gap 6 L BUN 9 D Creatinine 0.2 L D Creat Clearance w eGFR > 60 Random Glucose 109 H D Calcium 8.9 Total Bilirubin 0.4 D AST 15 D ALT 22 Alkaline Phosphatase 99 D Total Protein 6.3 L Albumin 3.0 L TSH Free T4 Urine Color Yellow Urine Appearance Clear Urine pH 5.0 Urine Protein Negative Urine Glucose (UA) Negative Urine Ketones Negative Urine Blood Negative Urine Nitrite Negative Urine Bilirubin Negative Urine Urobilinogen Negative Ur Leukocyte Esterase Negative 10/10/16 05:05 WBC RBC Hgb Hct MCV MCH MCHC RDW Plt Count MPV Neutrophils % Lymphocytes % Monocytes % Eosinophils % Basophils % Sodium Potassium Chloride Carbon Dioxide Anion Gap BUN Creatinine Creat Clearance w eGFR Random Glucose Calcium Total Bilirubin AST ALT Alkaline Phosphatase Total Protein Albumin TSH 2.02 D Free T4 1.00 Urine Color Urine Appearance Urine pH Urine Protein Urine Glucose (UA) Urine Ketones Urine Blood Urine Nitrite Urine Bilirubin Urine Urobilinogen Ur Leukocyte Esterase Active Medications Generic Name Dose Route Start Last Admin Trade Name Freq PRN Reason Stop Dose Admin Enoxaparin Sodium 70 mg 10/09/16 22:00 10/09/16 22:00 Lovenox - SQ 70 mg BID [facility] Administration Diltiazem HCl 125 mg/ Dextrose 125 mls @ 5 mls/hr 10/09/16 16:30 10/09/16 23:11 IVPB 5 mls/hr TITR [facility] Administration Protocol 5 MG/HR Potassium Chloride/Dextrose/Sod Cl 1,000 mls @ 75 mls/hr 10/10/16 08:00 D5-1/2ns+10 Meq Kcl - IV ASDIR [facility] Vancomycin HCl 250 mls @ 250 mls/hr 10/10/16 10:00 Vancomycin (Pre-Docked) IVPB 10/10/16 10:59 ONCE ONE Protocol Methimazole 10 mg 10/10/16 10:00 Tapazole - PO DAILY [facility] Metoprolol Tartrate 50 mg 10/09/16 22:00 10/09/16 23:09 Lopressor - PO Not Given BID [facility] Imaging: CTA: no evidence of pulmonary embolism ASSESSMENT/PLAN: 56 year old female with pmh of HTN, hyperthyroidism ALS with resolved paroxysmal atrial fibrillation Neuro: patient has ALS -unable to ambulate on her own, rotate the patient Q2h Pulmonary: initial SOB likely 2/2 paroxysmal AF vs CHF exacerbation -f/u echocardiogram Cardio: new onset paroxysmal atrial fibrillation likely 2/2 hyperthyroidism vs PE vs sepsis vs aspiration pneumonia -TSH normal, free T4 wnl -canceled US b/l legs to r/u DVT -cont metoprolol 50mg BID -continue lisinopril 10mg PO Endocrine: hyperthyroidism with normal TSH/free T4 -start methimazole 10mg PO ID: 1 positive blood Cx that grew gram (+) cocci likely 2/2 contamination and unlikely bacteremia -give 1 dose 1gm vancomycin -clinically unlikely to be bacteremia, do not do f/u cultures FEN: -continue IVF @ 75ml/hr -consult speech and swallow to evaluate for feeding tube necessity -Consult GI Dr. Ireland for PEG evaluation Proph: -DC heparin -cont lovenox 70mg BID -cont ceftriaxone and azithromycin Dispo: -Transfer to telemetry Problem List - Problems (1) Paroxysmal atrial fibrillation Code(s): I48.0 - PAROXYSMAL ATRIAL FIBRILLATION Visit type - Emergency Visit Emergency Visit: No - New Patient This patient is new to me today: No - Critical Care Critical Care patient: Yes Total Critical Care Time (in minutes): 45 Critical Care Statement: The care of this patient involved high complexity decision making to prevent further life threatening deterioration of the patient 's condition and/or to evalute & treat vital organ system(s) failure or risk of failure.
--- NOTE | 2016-10-10 08:33 | PN ---
Progress Note (short form) - Note Progress Note: ID Full note dictated Afebrile NAD Positive blood culture only 1 bottle now 03/28 sent for completion of sepsis workup Microbiology 10/09/16 04:51 Blood - Peripheral Venous Blood Culture - Final Pending Organism 10/09/16 04:51 Blood - Peripheral Venous Blood Culture - Preliminary NO GROWTH OBTAINED AFTER 24 HOURS, INCUBATION TO CONTINUE FOR 4 DAYS. Laboratory Tests 10/09/16 10/10/16 04:51 05:05 WBC 10.9 H Hgb 15.3 Hct 47.6 H Plt Count 238 BUN 9 D Creatinine 0.2 L D Assessment Suspect blood culture contaminant gram pos cocci clusters Plan vancomycin pending c/s final Discussed with resident Margot LOVELACE Problem List - Problems (1) ALS (amyotrophic lateral sclerosis) Code(s): G12.21 - AMYOTROPHIC LATERAL SCLEROSIS (2) Bacteremia Code(s): R78.81 - BACTEREMIA (3) Paroxysmal atrial fibrillation Code(s): I48.0 - PAROXYSMAL ATRIAL FIBRILLATION
[2016-10-10] MEDS ORDERED: KCL 10 MEQ IVPB 100 ML IVPB ONE (08:45)
--- NOTE | 2016-10-10 08:46 | PN ---
Progress Note, Physician Chief Complaint: in sinus History of Present Illness: appears comfortable CT: no pulmonary embolism, possible infiltrate - Current Medication List Current Medications: Active Medications Enoxaparin Sodium (Lovenox -) 70 mg SQ BID [facility] Last Admin: 10/09/16 22:00 Dose: 70 mg Diltiazem HCl 125 mg/ Dextrose 125 mls @ 5 mls/hr IVPB TITR SILVIA; 5 MG/HR PRN Reason: Protocol Last Admin: 10/09/16 23:11 Dose: 5 mls/hr Potassium Chloride/Dextrose/Sod Cl (D5-1/2ns+10 Meq Kcl -) 1,000 mls @ 75 mls/ hr IV ASDIR SILVIA Vancomycin HCl 1,250 mg/ (Dextrose) 250 mls @ 250 mls/hr IVPB BID [facility] PRN Reason: Protocol Potassium Chloride (Potassium Chloride 10 Meq Premix Ivpb -) 100 mls @ 100 mls/ hr IVPB Q60M [facility] Stop: 10/10/16 09:44 Methimazole (Tapazole -) 10 mg PO DAILY [facility] Metoprolol Tartrate (Lopressor -) 50 mg PO BID [facility] Last Admin: 10/09/16 23:09 Dose: Not Given - Objective Vital Signs: Vital Signs Temperature 98.6 F 10/10/16 06:00 Pulse Rate 68 10/10/16 06:00 Respiratory Rate 25 H 10/10/16 06:00 Blood Pressure 103/61 10/10/16 06:00 O2 Sat by Pulse Oximetry (%) 100 10/10/16 06:17 Constitutional: Yes: Calm Eyes: Yes: Conjunctiva Clear Cardiovascular: Yes: Regular Rate and Rhythm Respiratory: Yes: CTA Bilaterally (no wheezing) Gastrointestinal: Yes: Soft (nontender) Edema: No Labs: CBC, BMP 10/10/16 05:05 10/10/16 05:05 INR, PTT INR 1.05 (0.82-1.09) 10/09/16 04:51 - ....Imaging EKG: Other (TELE: NSR) Assessment/Plan IMP: Advanced ALS PAF PNA REC: Now back in NSR. Continue beta senait and telemetry x 24 more hours. On Lovenox.
[2016-10-10 09:02] LABS: C-REACTIVE PROTEIN 0.5 MG/DL (0.00-0.3)
--- NOTE | 2016-10-10 09:08 | CON.GI ---
Consult Consult Specialty:: GI Referred by:: Dr. Conrad Wolfe Reason for Consultation:: Dysphagia - History of Present Illness Chief Complaint: Obtained from chart: shortness of breath History of Present Illness: 56F admitted 10/09 for evaluation of SOB. Noted to be hypoxic on admission, started on BiPAP, noted to be in a.fib w/ RVR. She has a history of ALS and per the chart has been having increasing difficulty swallowing liquids. Asked to evaluate further. Ms. Doe is awake and able to answer my questions through head gestures and mouthing of words. She currently denies any abdominal pain. 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) Cardio/Vascular: Yes: HTN, Hyperlipdemia Gastrointestinal: No: Ascites, Cancer, Constipation, Crohn's Disease, Diverticulitis, Diverticulosis, Esophageal Varices, Gastritis, GERD, GI Bleed, Hemorrhoids, Hiatal Hernia, Inflamatory Bowel Disease, Irritable Bowel Disease, Pancreatitis, Peptic Ulcer Disease, Ulcerative Colitis, Other Hepatobiliary: No: Cirrhosis, Cholelithiasis, Cholecystitis, Choledocholithiasis , Hepatitis A, Hepatitis B, Hepatitis C, Other Renal/: No: Renal Failure, Renal Inusuff, BPH, Cancer, Hematuria, Hemodialysis , Neurogenic Bladder, Renal Calculi, UTI, Other Infectious Disease: No: AIDS, C-Diff, Herpes Zoster, HIV, MRSA, STD's, Tuberculosis, VREF, Other Psych: No: Addictions, Anxiety, Bipolar, Depression, Panic, Psychosis, Schizophrenia, Other Musculoskeletal: No: Bursitis, Chronic low back pain, Hemiparesis, Hemiplegia, Osteoarthritis, Paraplegia, Other Rheumatology: No: Fibromyalgia, Gout, Lupus, Rheumatoid Arthritis, Sarcoidosis, Vasculitis, Other Endocrine: Yes: Hyperthyroidism - Alcohol/Substance Use Hx Alcohol Use: No History of Substance Use: reports: None - Smoking History Smoking history: Unknown if ever smoked Have you smoked in the past 12 months: No Aproximately how many cigarettes per day: 0 - Social History ADL: Family Assistance Place of : [facility] History of Recent Travel: No Home Medications - Allergies Allergies/Adverse Reactions: Allergies Allergy/AdvReac Type Severity Reaction Status Date / Time No Known Allergies Allergy Verified 10/09/16 04:25 - Home Medications Home Medications: Ambulatory Orders Amlodipine Besylate [Norvasc -] 5 mg PO DAILY 10/09/16 Lisinopril [Prinivil] 10 mg PO DAILY 10/09/16 Family Disease History - Family Disease History Family Disease History: Other: Son (3, healthy) Review of Systems - Review of Systems Cardiovascular: denies: Chest Pain Respiratory: reports: SOB (improved) Gastrointestinal: denies: Abdominal Pain Physical Exam-GI Vital Signs: Vital Signs Temperature 98.6 F 10/10/16 06:00 Pulse Rate 68 10/10/16 06:00 Respiratory Rate 25 H 10/10/16 06:00 Blood Pressure 103/61 10/10/16 06:00 O2 Sat by Pulse Oximetry (%) 100 10/10/16 06:17 Constitutional: Yes: Calm Eyes: No: Sclera Icterus Cardiovascular: Yes: Regular Rate and Rhythm. No: Murmur Respiratory: Yes: Diminished (at bases bilaterally however the patient gave a poor inspiratory effort) Gastrointestinal Inspection: No: Distention ...Auscultate: Yes: Normoactive Bowel Sounds ...Palpate: No: Tenderness ...Percussion: No: Tympanitic Edema: No (no LE edema) Neurological: Yes: Alert Labs: CBC, BMP 10/10/16 05:05 10/10/16 05:05 INR, PTT INR 1.05 (0.82-1.09) 10/09/16 04:51 Hepatic Panel Total Bilirubin 0.4 mg/dL (0.2-1.0) D 10/10/16 05:05 AST 15 U/L (15-37) D 10/10/16 05:05 ALT 22 U/L (12-78) 10/10/16 05:05 Alkaline Phosphatase 99 U/L (45-117) D 10/10/16 05:05 Albumin 3.0 g/dl (3.4-5.0) L 10/10/16 05:05 Imaging - Results Cat Scan: Report Reviewed Problem List - Problems (1) Dysphagia Assessment/Plan: Patient with a progressive neurological disorder with history of dysphagia. I discussed this with Ms. Doe and asked her if feeding tube was ever discussed with her. she nodded no. I asked if this was something that she would want to undergo. She nodded no. She was amenable to a speech and swallow evaluation and she seemed OK discussing things again once the swallow eval. was complete and recommendations were given. Code(s): R13.10 - DYSPHAGIA, UNSPECIFIED
[2016-10-10] MEDS: ENOXAPARIN NA (PORCINE) 80 MG/0.8 ML DISP.SYRIN SQ SCH (09:11)
[2016-10-10] MEDS: METOPROLOL TARTRATE 50 MG TABLET (FP) PO SCH ×2 (09:14→22:08)
[2016-10-10] MEDS ORDERED: METHIMAZOLE 10 MG TABLET (FP) PO SCH (10:00)
[2016-10-10] MEDS ORDERED: VANCOMYCIN 1 GRAM (PRE-DOCKED) 250 ML IVPB ONE (10:00)
[2016-10-10] MEDS ORDERED: VANCOMYCIN 1,250 MG in DEXTROSE 5%-WATER - 250 ML IVPB SCH ×2 (10:00→22:00)
[2016-10-10] MEDS: DEXTROSE 5%-0.45% SALINE 1,000 ML IV SCH ×2 (10:00→17:39)
--- NOTE | 2016-10-10 11:17 | PN ---
Teaching Attending Note Name of Resident: Junito Prieto ATTENDING PHYSICIAN STATEMENT I saw and evaluated the patient. I reviewed the resident's note and discussed the case with the resident. I agree with the resident's findings and plan as documented. SUBJECTIVE: Pt seen and examined in the ICU. Denies shortness of breath or chest pain. No cough. No fevers or chills. Sinus rhythm on telemetry. OBJECTIVE: Last Vital Signs Temp Pulse Resp BP Pulse Ox 98.6 F 68 25 H 103/61 100 10/10/16 06:00 10/10/16 06:00 10/10/16 06:00 10/10/16 06:00 10/10/16 06:17 Intake & Output 10/07/16 10/08/16 10/09/16 10/10/16 23:59 23:59 23:59 23:59 Intake Total 1050 960 Output Total 350 200 Balance 700 760 Weight 154 lb 156 lb 4 oz Gen: NAD, breathing nonlabored Heart: RRR Lung: decreased breath sounds at the bases Abd: soft, nontender Ext: no edema CBC, BMP 10/10/16 05:05 10/10/16 05:05 Active Medications Enoxaparin Sodium (Lovenox -) 70 mg SQ BID [facility] Last Admin: 10/10/16 09:11 Dose: 70 mg Diltiazem HCl 125 mg/ Dextrose 125 mls @ 5 mls/hr IVPB TITR SIL[facility]IA; 5 MG/HR PRN Reason: Protocol Last Admin: 10/09/16 23:11 Dose: 5 mls/hr Potassium Chloride/Dextrose/Sod Cl (D5-1/2ns+10 Meq Kcl -) 1,000 mls @ 75 mls/ hr IV ASDIR SILVIA Vancomycin HCl 1,250 mg/ (Dextrose) 250 mls @ 250 mls/hr IVPB BID [facility] PRN Reason: Protocol Last Admin: 10/10/16 09:11 Dose: 250 mls/hr Methimazole (Tapazole -) 10 mg PO DAILY [facility] Metoprolol Tartrate (Lopressor -) 50 mg PO BID [facility] Last Admin: 10/10/16 09:14 Dose: 50 mg ASSESSMENT AND PLAN: Amyotrophic Lateral Sclerosis Paroxysmal Atrial Fibrillation with RVR now in sinus Hyperthyroidism Chronic Hypercapneic Respiratory Failure likely from ALS Hypokalemia Bacteremia likely contaminant - rate controlled - continue anticoagulation - continue methimazole - antibiotics per ID - replete lytes - O2 to keep SpO2 >90% - aspiration precautions - can monitor on telemetry
--- NOTE | 2016-10-10 12:33 | CONSULT ---
Admitting History and Physical - Primary Care Physician PCP: Conrad Wolfe - Admission History of Present Illness: Per EMR: "History of Present Illness: 56F admitted 10/09 for evaluation of SOB. Noted to be hypoxic on admission, started on BiPAP, noted to be in a.fib w/ RVR. She has a history of ALS and per the chart has been having increasing difficulty swallowing liquids. Asked to evaluate further. Ms. Doe is awake and able to answer my questions through head gestures and mouthing of words. She currently denies any abdominal pain. CTA of the chest failed to reveal consilidation consistent with an aspiration pneumonia" Per pt's son, with agreement by head nod by pt, Pt with dx of Bulbar ALS x 2 years, followed every 3 mths at [facility]. Pt was dysarthric with functional communication, hypernasality and low volume suspected per history. Deterioration in status 2 weeks ago, with impaired communication and dysphagia, coughing on liquids if she drank too fast, and congestion/sob. She was seen once by speech pathology at [facility] with rec for augmentative communication, however, family did not follow up as communication was difficult but was functional. Bedside swallowing evaluation/questionnaires were performed at [facility], and pt was tolerating reg diet/thin liquid. She has not had an instrumental swallowing assessment. She is a full code. 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) Cardiovascular: Yes: HTN, Hyperlipdemia Gastrointestinal: No: Ascites, Cancer, Constipation, Crohn's Disease, Diverticulitis, Diverticulosis, Esophageal Varices, Gastritis, GERD, GI Bleed, Hemorrhoids, Hiatal Hernia, Inflamatory Bowel Disease, Irritable Bowel Disease, Pancreatitis, Peptic Ulcer Disease, Ulcerative Colitis, Other Hepatobiliary: No: Cirrhosis, Cholelithiasis, Cholecystitis, Choledocholithiasis , Hepatitis A, Hepatitis B, Hepatitis C, Other Renal/: No: Renal Failure, Renal Inusuff, BPH, Cancer, Hematuria, Hemodialysis , Neurogenic Bladder, Renal Calculi, UTI, Other Heme/Onc: No: Anemia, B12 Deficiency, Bleeding Disorder, Cancer, Current Chemotherapy, Current Radiation Therapy, Hemochromatosis, Hypercoaguable State, Myeloproliferative Synd, Sickle Cell Disease, Sickle Cell Trait, Thrombocytopenia, Other Infectious Disease: No: AIDS, C-Diff, Herpes Zoster, HIV, MRSA, STD's, Tuberculosis, VREF, Other Psych: No: Addictions, Anxiety, Bipolar, Depression, Panic, Psychosis, Schizophrenia, Other Musculoskeletal: No: Bursitis, Chronic low back pain, Hemiparesis, Hemiplegia, Osteoarthritis, Paraplegia, Other Rheumatology: No: Fibromyalgia, Gout, Lupus, Rheumatoid Arthritis, Sarcoidosis, Vasculitis, Other Endocrine: Yes: Hyperthyroidism - Smoking History Smoking history: Unknown if ever smoked Have you smoked in the past 12 months: No Aproximately how many cigarettes per day: 0 - Alcohol/Substance Use Hx Alcohol Use: No History of Substance Use: reports: None - Social History ADL: Family Assistance History of Recent Travel: No History - Admission Reason For Visit: PNEUMONIA - Diagnostics X-ray: Report Reviewed - General Mental Status: Alert and Oriented, Awake and Alert, Able to Follow Commands Attention: Intact Ability to Follow Directions: Good Head/Neck Control: Poor - Hearing Hearing: Functional Speech Evaluation - Communication Primary Language: MALIAN Communication: Yes: Dysarthria Oral Expression Ability: Yes: Severe Impairment - Speech Production Able to Make Needs Known: Yes: Severely Impaired Intelligibility: Yes: Severely Impaired - Speech Characteristics Voice Loudness: Severely Soft/Quiet (rarely audible) Voice Phonatory-based Quality: Yes: Loss of Voice (mostly aphonic) Speech Pattern: Impaired Speech Clarity: < 25% - Language/Verbal Expression Able to Respond to Simple Queries: Yes: Severely Impaired Able to Communicate Wants and Needs: Yes: Severely Impaired Functional Communication Status: Yes: Severely Impaired - 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 Good ROM) Lingual Speed of Movement: Normal Lingual Movement Strgth Against Opposition: Reduced (mild) Soft Palate Description: Normal Symmetry Hard Palate Description: Normal Symmetry Velopharyngeal Movement: Reduced Elevation (bilaterally. Very weak.) Laryngeal Movement: Able to Palpate, Labored,delay initiation Labial Seal: WFL Timing of Swallow: Delayed Coughing/Throat Clear: No Change in Voice: No Recommendations - Speech Evaluation, Impression/Plan Impression: Pt presents with poor (+) functional communication,able to shake head y/n but mostly non vocal, some ability to mouth words with poor(+) skills. She has some movement in right hand. With support of arm and splinting of finger to enable pointing response, she was somewhat able to point to communication board provided and ipad. Swallow fairly strong with aspiration risk.Tongue/lip movement fairly strong with severe velopharyngeal weakness. Pt uses a cough assist at home to reduce congestion with good affect. - Disposition Discharge to: To be Determined - Dysphagia Impressions/Plan Swallowing Skills: Impaired Dysphagia Impressions: Risk of Aspiration, Ongoing Evaluation *Silent aspiration: cannot be R/O at bedside Recommendations: GI Consult (Pt educated on PEG insertion benefits in ALS pts.) , Palliative Care (End of life decisions.), Modified Barium Swallow, Other (use of augmentative communication devices, as able.)
[2016-10-10] MEDS: D5-1/2NS+10 MEQ KCL - 1,000 ML IV SCH (17:30)
--- NOTE | 2016-10-10 20:18 | CONS ---
DATE OF CONSULTATION: DATE OF DICTATION: 10/10/2016 HISTORY OF PRESENT ILLNESS: This is a 56-year-old female with known diagnosis of ALS who I am asked to see in the intensive care unit for evaluation of respiratory distress and now a positive blood culture for gram-positive cocci in clusters from 1 out of 4 bottles drawn on admission as part of a "sepsis evaluation". She has ALS and was admitted with chief complaint of respiratory distress. She was found to have paroxysmal atrial fibrillation with a rate of 170 and was admitted to the ICU for further management. She has a history of hypothyroidism treated with p.o. methimazole. She is taken care of at home and was noted to be hypoxic on admission. A CAT scan of the chest to look for PE was done, which showed only some atelectasis in the left lower lobe, but no PE and no obvious infiltrate. She was afebrile. She was seen in consultation by both cardiology and pulmonary services. Currently she is doing much better, and now the original blood culture drawn for I assume completeness' sake in the ER has 1 out of 4 bottles positive. She has no history of any prosthetic valves or prosthetic hardware to the best of my knowledge, although obtaining a history from her is difficult due to her ALS. PAST MEDICAL HISTORY: Includes ALS, hypertension, hyperlipidemia, goiter, hypothyroidism. MEDICATION: Amlodipine, lisinopril, methimazole. ALLERGIES: None known. SOCIAL HISTORY: Nonsmoker. No history of ETOH abuse. Lives at home. FAMILY HISTORY: Reviewed and noncontributory. REVIEW OF SYSTEMS: Respiratory: ALS on a BiPAP mask Cardiac: Currently with rapid atrial fibrillation, new onset. No chest pain, palpitations, syncope. Gastrointestinal: No nausea, vomiting, abdominal pain, diarrhea. Genitourinary: No dysuria, hematuria, urinary frequency. PHYSICAL EXAMINATION: General: She is a pleasant alert woman in no acute distress. Vital signs: Temperature 98.6, pulse 68, blood pressure 103/61, respirations 25. Neck: Supple. No adenopathy. Lungs: Diminished breath sounds bilaterally. Heart: S1, S2. Irregular. No audible murmur. Abdomen: Positive bowel sounds. Soft, nontender. No organomegaly. Extremities: Without clubbing, cyanosis, or edema. White count on admission 10.9, hemoglobin 15.3, platelets 238, INR 1.05, BUN 9, creatinine 0.2. Urinalysis negative. Blood cultures previously mentioned. ASSESSMENT: A 56-year-old female with known diagnosis living at home with amyotrophic lateral sclerosis, presents with respiratory distress and rapid onset atrial fibrillation. Etiology of her respiratory distress unclear but may be on the basis of possible aspiration with admitting hypoxemia and tachycardia. No clear evidence of pulmonary infection at this time. Positive blood culture done with 1 out of 4 bottles suggests contamination as clinical suspicion for sepsis in this patient was, though not nonexistent, low. At this point, she remains afebrile with a normal white count and no obvious source of bacteremia. As discussed with Dr. Wolfe, would treat her with vancomycin for now 1.25 g twice a day pending final blood culture reports. The case was discussed with both the primary care doctor as well as the house staff in the intensive care unit. Critical care time spent: Yes, time 39 minutes. PEDRO MCLEOD M.D. [id number]
[2016-10-10] MEDS ORDERED: ENOXAPARIN NA (PORCINE) 80 MG/0.8 ML DISP.SYRIN SQ SCH (22:00)
[2016-10-11 06:27] LABS: ANION GAP 4 (8-16); BILIRUBIN,TOTAL 0.3 mg/dL (0.2-1.0); CALCIUM 8.9 mg/dL (8.5-10.1); CO2 34 mmol/L (21-32); CREATININE 0.2 mg/dL (0.55-1.02); GLUCOSE,RANDOM 113 mg/dL (74-106); SGOT/AST 16 U/L (15-37); SGPT/ALT 21 U/L (12-78); TOT PROT 6.4 g/dl (6.4-8.2)
[2016-10-11 06:28] LABS: ALK PHOS 95 U/L (45-117)
[2016-10-11] MEDS: D5-1/2NS+10 MEQ KCL - 1,000 ML IV SCH ×2 (07:00→17:23)
--- NOTE | 2016-10-11 07:42 | PN ---
Progress Note, Physician Chief Complaint: Afebrile, NAD in ICU, severe disarthria due to ALS. Ms Vasquez consult appreciated. Soft diet started as recommended. On Vanco, ID-P for GPC in clusters. History of Present Illness: GOiter. Hyperthyroidism on PO Methimazole. ALS HTN HLD - Current Medication List Current Medications: Active Medications Enoxaparin Sodium (Lovenox -) 70 mg SQ BID [facility] Last Admin: 10/10/16 22:08 Dose: 70 mg Diltiazem HCl 125 mg/ Dextrose 125 mls @ 5 mls/hr IVPB TITR SILVIA; 5 MG/HR PRN Reason: Protocol Last Admin: 10/10/16 07:00 Dose: Not Given Potassium Chloride/Dextrose/Sod Cl (D5-1/2ns+10 Meq Kcl -) 1,000 mls @ 75 mls/ hr IV ASDIR SILVIA Last Admin: 10/10/16 17:30 Dose: 75 mls/hr Vancomycin HCl 1,250 mg/ (Dextrose) 250 mls @ 166.667 mls/hr IVPB BID [facility] PRN Reason: Protocol Last Admin: 10/10/16 22:07 Dose: 166.667 mls/hr Methimazole (Tapazole -) 10 mg PO DAILY [facility] Metoprolol Tartrate (Lopressor -) 50 mg PO BID [facility] Last Admin: 10/10/16 22:08 Dose: 50 mg - Objective Vital Signs: Vital Signs Temperature 97.4 F L 10/11/16 06:00 Pulse Rate 7 L 10/11/16 06:00 Respiratory Rate 24 10/11/16 06:00 Blood Pressure 110/76 10/11/16 06:00 O2 Sat by Pulse Oximetry (%) 100 10/10/16 22:30 Constitutional: Yes: Calm, Mild Distress Eyes: Yes: Conjunctiva Clear, EOM Intact HENT: Yes: Atraumatic, Normocephalic Neck: Yes: Trachea Midline, Decreased ROM, Thyromegaly. No: Lymphadenopathy, Tenderness Cardiovascular: Yes: Regular Rate and Rhythm. No: Bradycardia, Tachycardia, JVD Respiratory: Yes: Regular, CTA Bilaterally. No: Bradypnea, Rales Gastrointestinal: Yes: Normal Bowel Sounds, Soft. No: Ascites, Palpable Mass ...Rectal Exam: Yes: Deferred Genitourinary: No: Anuria, Bladder Distention, CVA Tenderness - Left, CVA Tenderness - Right Breast(s): Yes: WNL Musculoskeletal: Yes: Muscle Weakness Extremities: No: Calf Tenderness, Cold, Cyanosis Edema: No Integumentary: Yes: WNL Neurological: Yes: Alert, Dysarthria Labs: CBC, BMP 10/10/16 05:05 10/11/16 05:05 INR, PTT INR 1.05 (0.82-1.09) 10/09/16 04:51 Laboratory Results - last 24 hr 10/09/16 10/10/16 10/10/16 23:00 05:05 05:05 Sodium Potassium Chloride Carbon Dioxide Anion Gap BUN Creatinine Creat Clearance w eGFR Random Glucose Calcium Total Bilirubin AST ALT Alkaline Phosphatase C-Reactive Protein 0.5 H Cancelled Total Protein Albumin TSH 2.02 D Free T4 1.00 Urine Color Yellow Urine Appearance Clear Urine pH 5.0 Ur Specific [place] <= 1.005 Urine Protein Negative Urine Glucose (UA) Negative Urine Ketones Negative Urine Blood Negative Urine Nitrite Negative Urine Bilirubin Negative Urine Urobilinogen Negative Ur Leukocyte Esterase Negative 10/11/16 05:05 Sodium 143 Potassium 3.6 Chloride 105 Carbon Dioxide 34 H Anion Gap 4 L BUN 5 L D Creatinine 0.2 L Creat Clearance w eGFR > 60 Random Glucose 113 H Calcium 8.9 Total Bilirubin 0.3 D AST 16 ALT 21 Alkaline Phosphatase 95 C-Reactive Protein Total Protein 6.4 Albumin 3.0 L TSH Free T4 Urine Color Urine Appearance Urine pH Ur Specific [place] Urine Protein Urine Glucose (UA) Urine Ketones Urine Blood Urine Nitrite Urine Bilirubin Urine Urobilinogen Ur Leukocyte Esterase Problem List - Problems (1) Paroxysmal atrial fibrillation Assessment/Plan: Continue A/C. BAB for rate control Code(s): I48.0 - PAROXYSMAL ATRIAL FIBRILLATION (2) Respiratory failure Assessment/Plan: Stable on O2NC now Code(s): J96.90 - RESPIRATORY FAILURE, UNSP, UNSP W HYPOXIA OR HYPERCAPNIA Qualifiers: Chronicity: acute Respiratory failure complication: hypoxia and hypercapnia Qualified Code(s): J96.01 - Acute respiratory failure with hypoxia (3) ALS (amyotrophic lateral sclerosis) Assessment/Plan: Continue soft diet for now. Probably will need P{EG in the future Code(s): G12.21 - AMYOTROPHIC LATERAL SCLEROSIS (4) Hypokalemia Assessment/Plan: Repleted K Code(s): E87.6 - HYPOKALEMIA (5) Bacteremia Assessment/Plan: P ID GPC Vanco IV Code(s): R78.81 - BACTEREMIA (6) Hyperthyroidism Assessment/Plan: Continue Tapazole PO Code(s): E05.90 - THYROTOXICOSIS, UNSP WITHOUT THYROTOXIC CRISIS OR STORM
--- NOTE | 2016-10-11 07:51 | DS ---
Physical Examination Vital Signs: Vital Signs Temperature 97.4 F L 10/11/16 06:00 Pulse Rate 7 L 10/11/16 06:00 Respiratory Rate 24 10/11/16 06:00 Blood Pressure 110/76 10/11/16 06:00 O2 Sat by Pulse Oximetry (%) 100 10/11/16 07:00 Constitutional: Yes: Calm, Mild Distress Eyes: Yes: Conjunctiva Clear, EOM Intact HENT: Yes: Atraumatic, Normocephalic. No: Drooling Neck: Yes: Supple, Trachea Midline, Decreased ROM, Thyromegaly. No: Lymphadenopathy Cardiovascular: Yes: Regular Rate and Rhythm. No: Bradycardia, Tachycardia, JVD Respiratory: Yes: Regular, CTA Bilaterally Gastrointestinal: Yes: Normal Bowel Sounds, Soft. No: Ascites, Palpable Mass ...Rectal Exam: Yes: Deferred Renal/: No: Anuria, Bladder Distention, CVA Tenderness - Left, CVA Tenderness - Right Breast(s): Yes: WNL Musculoskeletal: Yes: Muscle Weakness Edema: No Neurological: Yes: Alert, Dysarthria, Weakness Psychiatric: Yes: Alert Labs: CBC, BMP 10/10/16 05:05 10/11/16 05:05 Discharge Summary Reason For Visit: Paroxysmal A.fib, resp failure, ALS Current Active Problems ALS (amyotrophic lateral sclerosis) (Acute) Bacteremia (Acute) Dysphagia (Acute) Hyperthyroidism (Acute) Hypokalemia (Acute) Paroxysmal atrial fibrillation (Acute) Pleural effusion (Acute) Respiratory failure (Acute) Condition: Critical - Instructions Referrals: Conrad Wolfe MD [Primary Care Provider] - Disposition: PENITENTIARY FACILITY - Home Medications Comprehensive Discharge Medication List: Ambulatory Orders Amlodipine Besylate [Norvasc -] 5 mg PO DAILY 10/09/16 Lisinopril [Prinivil] 10 mg PO DAILY 10/09/16
--- NOTE | 2016-10-11 08:12 | PN ---
Progress Note, Physician Chief Complaint: ID Remains stable On Vancomycin Blood culture SCN - Current Medication List Current Medications: Active Medications Apixaban (Eliquis -) 5 mg PO BID [facility] Diltiazem HCl 125 mg/ Dextrose 125 mls @ 5 mls/hr IVPB TITR [facility]; 5 MG/HR PRN Reason: Protocol Last Admin: 10/10/16 07:00 Dose: Not Given Potassium Chloride/Dextrose/Sod Cl (D5-1/2ns+10 Meq Kcl -) 1,000 mls @ 75 mls/ hr IV ASDIR [facility] Last Admin: 10/10/16 17:30 Dose: 75 mls/hr Vancomycin HCl 1,250 mg/ (Dextrose) 250 mls @ 166.667 mls/hr IVPB BID [facility] PRN Reason: Protocol Last Admin: 10/10/16 22:07 Dose: 166.667 mls/hr Methimazole (Tapazole -) 10 mg PO DAILY [facility] Metoprolol Tartrate (Lopressor -) 50 mg PO BID [facility] Last Admin: 10/10/16 22:08 Dose: 50 mg - Objective Vital Signs: Vital Signs Temperature 97.4 F L 10/11/16 06:00 Pulse Rate 7 L 10/11/16 06:00 Respiratory Rate 24 10/11/16 06:00 Blood Pressure 110/76 10/11/16 06:00 O2 Sat by Pulse Oximetry (%) 100 10/11/16 07:00 Constitutional: Yes: No Distress Cardiovascular: Yes: S1, S2 Respiratory: Yes: WNL, Regular, CTA Bilaterally. No: Rales, Rhonchi Gastrointestinal: Yes: WNL, Normal Bowel Sounds, Soft. No: Tenderness Edema: No Labs: CBC, BMP 10/10/16 05:05 10/11/16 05:05 INR, PTT INR 1.05 (0.82-1.09) 10/09/16 04:51 Problem List - Problems (1) ALS (amyotrophic lateral sclerosis) Code(s): G12.21 - AMYOTROPHIC LATERAL SCLEROSIS (2) Bacteremia Code(s): R78.81 - BACTEREMIA (3) Paroxysmal atrial fibrillation Code(s): I48.0 - PAROXYSMAL ATRIAL FIBRILLATION Assessment/Plan Microbiology 10/09/16 04:51 Blood - Peripheral Venous Blood Culture - Final Pending Organism 10/09/16 04:51 Blood - Peripheral Venous Blood Culture - Preliminary NO GROWTH OBTAINED AFTER 48 HOURS, INCUBATION TO CONTINUE FOR 3 DAYS. Laboratory Tests 10/10/16 10/11/16 05:05 05:05 WBC 8.0 Hgb 13.2 D Hct 39.9 D Plt Count 219 BUN 5 L D Assessment ALS Respiratory distress Positive blood culture contaminant at this point SCN Atrial fibrillation Plan Stop antibiotic and discharge planning oer BARBARA Frost MD
--- NOTE | 2016-10-11 08:26 | PN ---
Progress Note, Physician Chief Complaint: TELE: NSR History of Present Illness: no distress - Current Medication List Current Medications: Active Medications Apixaban (Eliquis -) 5 mg PO BID [facility] Diltiazem HCl 125 mg/ Dextrose 125 mls @ 5 mls/hr IVPB TITR [facility]; 5 MG/HR PRN Reason: Protocol Last Admin: 10/10/16 07:00 Dose: Not Given Potassium Chloride/Dextrose/Sod Cl (D5-1/2ns+10 Meq Kcl -) 1,000 mls @ 75 mls/ hr IV ASDIR [facility] Last Admin: 10/10/16 17:30 Dose: 75 mls/hr Methimazole (Tapazole -) 10 mg PO DAILY [facility] Metoprolol Tartrate (Lopressor -) 50 mg PO BID [facility] Last Admin: 10/10/16 22:08 Dose: 50 mg - Objective Vital Signs: Vital Signs Temperature 97.6 F 10/11/16 08:00 Pulse Rate 73 10/11/16 08:00 Respiratory Rate 20 10/11/16 08:00 Blood Pressure 125/80 10/11/16 08:00 O2 Sat by Pulse Oximetry (%) 100 10/11/16 07:00 Constitutional: Yes: No Distress Cardiovascular: Yes: Regular Rate and Rhythm Respiratory: Yes: CTA Bilaterally (no rales or wheezing) Gastrointestinal: Yes: Soft Edema: No Labs: CBC, BMP 10/10/16 05:05 10/11/16 05:05 INR, PTT INR 1.05 (0.82-1.09) 10/09/16 04:51 Laboratory Tests 10/09/16 10/10/16 10/10/16 04:51 05:05 05:05 WBC 8.0 Hgb 13.2 D Plt Count 219 D-Dimer < 200 Sodium 140 Potassium 3.2 L BUN Creatinine 0.2 L D Total Bilirubin AST ALT Alkaline Phosphatase TSH 10/10/16 10/11/16 05:05 05:05 WBC Hgb Plt Count D-Dimer Sodium 143 Potassium 3.6 BUN 5 L D Creatinine 0.2 L Total Bilirubin 0.3 D AST 16 ALT 21 Alkaline Phosphatase 95 TSH 2.02 D Assessment/Plan IMP: Advanced ALS PAF PNA REC: Now back in NSR. Continue beta senait. Switched to Eliquis which I would continue for at least one month if she remains in NSR. Should have outpatient holter in the next few weeks.
[2016-10-11] MEDS ORDERED: PT OWN MED DRAWER 7, Y5N ONE (09:07)
[2016-10-11] MEDS: METHIMAZOLE 10 MG TABLET (FP) PO SCH (09:08)
[2016-10-11] MEDS: METOPROLOL TARTRATE 50 MG TABLET (FP) PO SCH ×2 (09:08→22:17)
--- NOTE | 2016-10-11 10:10 | PN ---
Progress Note (short form) - Note Progress Note: Speech and swallow evaluation noted. Ms. Doe seemed to do well on her modified barium swallow study and Jinny Vasquez left recommendations regarding feeding instructions. Patient seems to be maintaining her caloric needs orally at this time however she does have a progressive neurological disease that will likely impact her swallowing mechanism in the future. She expressed wishes not to have a feeding tube yesterday as outlined in my note. At this point there seems to be time in regards to making this decision and does not need to be made during this admission. I did discuss things with her son who was present at bedside. Problem List - Problems (1) Dysphagia Code(s): R13.10 - DYSPHAGIA, UNSPECIFIED
[2016-10-11] MEDS: APIXABAN 5 MG TABLET PO SCH ×2 (11:06→22:17)
--- NOTE | 2016-10-11 11:27 | PN ---
Progress Note, MOVEMENT THERAPIST - Note Progress Note: PEG deferred at this time, per pt request. Presently swallowing is functional, with likelihood of deterioration with progression of ALS. Poor head support. Educated staff on flexing head with rolled towel at all times , to improve ability to manage saliva/secretions and especially while fed, to reduce aspiration risk. Constructed communication board with fair use when placed on her lap. Pt able to slide her arm to point. Call placed to Berenice Singh regarding obtaining augmentative communication device / computer using eye gaze response, in anticipation of likelihood of deterioration with progression of ALS, to avoid Locked-in syndrome.Awaiting call back. Insurance coverage for this device, I believe, is better with pt at home, not in residential. Pt is a full code. Suggest palliative care consult.
--- NOTE | 2016-10-11 15:48 | PN ---
Progress Note (short form) - Note Progress Note: Denies shortness of breath or chest pain. Some dry cough. No fevers or chills. OBJECTIVE: Intake & Output 10/08/16 10/09/16 10/10/16 10/11/16 23:59 23:59 23:59 23:59 Intake Total 1050 2110 90 Output Total 350 200 Balance 700 1910 90 Weight 154 lb 156 lb 4 oz 157 lb 4 oz Last Vital Signs Temp Pulse Resp BP Pulse Ox 97.1 F L 66 22 114/75 100 10/11/16 14:00 10/11/16 14:00 10/11/16 14:00 10/11/16 14:00 10/11/16 11:40 Active Medications Apixaban (Eliquis -) 5 mg PO BID [facility] Last Admin: 10/11/16 11:06 Dose: 5 mg Diltiazem HCl 125 mg/ Dextrose 125 mls @ 5 mls/hr IVPB TITR [facility]; 5 MG/HR PRN Reason: Protocol Last Admin: 10/10/16 07:00 Dose: Not Given Potassium Chloride/Dextrose/Sod Cl (D5-1/2ns+10 Meq Kcl -) 1,000 mls @ 75 mls/ hr IV ASDIR [facility] Last Admin: 10/11/16 07:00 Dose: 75 mls/hr Methimazole (Tapazole -) 10 mg PO DAILY [facility] Last Admin: 10/11/16 09:08 Dose: 10 mg Metoprolol Tartrate (Lopressor -) 50 mg PO BID [facility] Last Admin: 10/11/16 09:08 Dose: 50 mg Gen: NAD, breathing nonlabored Heart: RRR Lung: decreased breath sounds at the bases Abd: soft, nontender Ext: no edema Laboratory Results - last 24 hr 10/11/16 10/11/16 05:05 05:05 ESR 0 Sodium 143 Potassium 3.6 Chloride 105 Carbon Dioxide 34 H Anion Gap 4 L BUN 5 L D Creatinine 0.2 L Creat Clearance w eGFR > 60 Random Glucose 113 H Calcium 8.9 Total Bilirubin 0.3 D AST 16 ALT 21 Alkaline Phosphatase 95 Total Protein 6.4 Albumin 3.0 L ASSESSMENT AND PLAN: Amyotrophic Lateral Sclerosis Paroxysmal Atrial Fibrillation with RVR now in sinus Hyperthyroidism Chronic Hypercapneic Respiratory Failure likely from ALS Hypokalemia Bacteremia likely contaminant - rate controlled - AC - Methimazole - ABX per ID - O2 to keep SpO2 >90% - Aspiration precautions Dr Grant
[2016-10-11] MEDS: DILTIAZEM INJECTION 125 MG in DEXTROSE 5%-WATER - 100 ML IVPB SCH (17:23)
--- NOTE | 2016-10-12 09:02 | PN ---
Progress Note, Physician Chief Complaint: TELE: NSR Needs to urinate, notified nurse aid - Current Medication List Current Medications: Active Medications Apixaban (Eliquis -) 5 mg PO BID [facility] Last Admin: 10/11/16 22:17 Dose: 5 mg Potassium Chloride/Dextrose/Sod Cl (D5-1/2ns+10 Meq Kcl -) 1,000 mls @ 75 mls/ hr IV ASDIR [facility] Last Admin: 10/11/16 17:23 Dose: Not Given Methimazole (Tapazole -) 10 mg PO DAILY [facility] Last Admin: 10/11/16 09:08 Dose: 10 mg Metoprolol Tartrate (Lopressor -) 50 mg PO BID [facility] Last Admin: 10/11/16 22:17 Dose: 50 mg - Objective Vital Signs: Vital Signs Temperature 98 F 10/12/16 06:00 Pulse Rate 72 10/12/16 06:00 Respiratory Rate 20 10/12/16 06:00 Blood Pressure 135/78 10/12/16 06:00 O2 Sat by Pulse Oximetry (%) 100 10/11/16 21:00 Constitutional: Yes: Calm Eyes: Yes: Conjunctiva Clear Cardiovascular: Yes: Regular Rate and Rhythm Respiratory: Yes: CTA Bilaterally Gastrointestinal: Yes: Soft Edema: No Labs: CBC, BMP 10/10/16 05:05 10/11/16 05:05 INR, PTT INR 1.05 (0.82-1.09) 10/09/16 04:51 - ....Imaging EKG: Image Reviewed Assessment/Plan IMP: Advanced ALS PAF PNA REC: Remains in sinus rhythm. Continue beta senait. Switched to Eliquis which I would continue for at least one month if she remains in NSR. Should have outpatient holter in the next few weeks.
--- NOTE | 2016-10-12 09:57 | PN ---
Progress Note (short form) - Note Progress Note: Awake, alert, NAD Vital Signs Temp 98 F 10/12/16 06:00 Pulse 72 10/12/16 06:00 Resp 20 10/12/16 06:00 BP 135/78 10/12/16 06:00 Pulse Ox 100 10/11/16 21:00 Intake & Output 10/11/16 10/11/16 10/12/16 11:59 23:59 11:59 Intake Total 90 1040 900 Output Total 350 Balance 90 690 900 Weight 157 lb 4 oz Intake: IV 900 900 D5-1/2Ns+10 Meq KCl - 1, 900 900 000 ml @ 75 mls/hr IV ASDIR [facility] Rx#:[id number] Oral 90 140 Output: Urine 350 Void 350 Other: Voiding Method Bedpan Bedpan # Unmeasured Voids Void 1 1 3 Bowel Movement No No Weight Measurement Method Built in Bedscale Lungs clear Heart S1S2 regular Abdomen soft, NT Tolkerates PO. No CCE Laboratory Results - last 24 hr 10/11/16 05:05 ESR 0 Current Active Problems Problem Status Diagnosed ALS (amyotrophic lateral sclerosis) Acute Bacteremia Acute Dysphagia Acute Hyperthyroidism Acute Hypokalemia Acute Paroxysmal atrial fibrillation Acute Pleural effusion Acute Respiratory failure Acute Plan Will d/c to SNF when bed is available. PT Continue BAB Problem List - Problems (1) Paroxysmal atrial fibrillation Code(s): I48.0 - PAROXYSMAL ATRIAL FIBRILLATION (2) Respiratory failure Code(s): J96.90 - RESPIRATORY FAILURE, UNSP, UNSP W HYPOXIA OR HYPERCAPNIA Qualifiers: Chronicity: acute Respiratory failure complication: hypoxia and hypercapnia Qualified Code(s): J96.01 - Acute respiratory failure with hypoxia (3) ALS (amyotrophic lateral sclerosis) Code(s): G12.21 - AMYOTROPHIC LATERAL SCLEROSIS (4) Hypokalemia Code(s): E87.6 - HYPOKALEMIA (5) Bacteremia Code(s): R78.81 - BACTEREMIA (6) Hyperthyroidism Code(s): E05.90 - THYROTOXICOSIS, UNSP WITHOUT THYROTOXIC CRISIS OR STORM
--- NOTE | 2016-10-12 09:58 | DS ---
Physical Examination Vital Signs: Vital Signs Temperature 98 F 10/12/16 06:00 Pulse Rate 72 10/12/16 06:00 Respiratory Rate 20 10/12/16 06:00 Blood Pressure 135/78 10/12/16 06:00 O2 Sat by Pulse Oximetry (%) 100 10/11/16 21:00 Constitutional: Yes: Calm Eyes: Yes: Conjunctiva Clear, EOM Intact HENT: Yes: Atraumatic, Normocephalic Neck: Yes: Supple, Trachea Midline Cardiovascular: Yes: Regular Rate and Rhythm Respiratory: Yes: Regular, CTA Bilaterally Gastrointestinal: Yes: Normal Bowel Sounds, Soft. No: Abdomen, Obese, Ascites, Palpable Mass, Tenderness ...Rectal Exam: Yes: Deferred Renal/: No: Anuria, Bladder Distention Breast(s): Yes: WNL Musculoskeletal: Yes: Muscle Weakness Extremities: No: Calf Tenderness, Cold, Cyanosis Edema: No Integumentary: Yes: WNL Labs: CBC, BMP 10/10/16 05:05 10/11/16 05:05 Discharge Summary Reason For Visit: PAF, ALS Current Active Problems ALS (amyotrophic lateral sclerosis) (Acute) Bacteremia (Acute) Dysphagia (Acute) Hyperthyroidism (Acute) Hypokalemia (Acute) Paroxysmal atrial fibrillation (Acute) Pleural effusion (Acute) Respiratory failure (Acute) Condition: Critical - Instructions Referrals: Conrad Wolfe MD [Primary Care Provider] - Disposition: RESIDENTIAL FACILITY - Home Medications Comprehensive Discharge Medication List: Ambulatory Orders Amlodipine Besylate [Norvasc -] 5 mg PO DAILY 10/09/16 Lisinopril [Prinivil] 10 mg PO DAILY 10/09/16
[2016-10-12] MEDS ORDERED: PT OWN MED DRAWER 7, Y5N ONE (10:15)
[2016-10-12] MEDS: APIXABAN 5 MG TABLET PO SCH (10:53)
[2016-10-12] MEDS: METOPROLOL TARTRATE 50 MG TABLET (FP) PO SCH (10:53)
[2016-10-12] MEDS: METHIMAZOLE 10 MG TABLET (FP) PO SCH (10:53)
--- NOTE | 2016-10-12 14:13 | PN ---
Progress Note, TELEPHONE MAINTAINER - Note Progress Note: Educated family on: 1-use of communication board that I constructed for them and encouraged trial of IPAD with comm apps. 2- head flexion for improved swallowing function and airway protection 3-2 ALS support groups- ALS Closet Jeramie [phone] for [employer] 4- reviewed options regarding end of life and PEG insertion with pt and PMD. Suggested consult with palliative care nurse. 5- Etran board use at [place]. 6- If pt retuirns home at some pt, f/u with Berenice Singh regarding Aug computer with eye gaze capability. 7- Head swiotch for nursing alves. Tolerating diet well.
[2016-10-12 15:00] VITALS: BP 129/74; PULSE 67; TEMP 98.3
== END 2016-10-12 18:12 | disposition home or self-care (01) | DRG 56 ==
LOC: JER 04:11 → JERBED 06:24 → UNDOADMIN 06:30 → JERBED 06:30 → JICU 08:00 → J2W 10-10 19:35 → J4S 10-11 20:19
PROVIDERS: ADMIT Internal Medicine; ATTEND Internal Medicine
DX: G12.21 Amyotrophic lateral sclerosis (principal); J96.01 Acute respiratory failure with hypoxia; J90 Pleural effusion, not elsewhere classified; I48.0 Paroxysmal atrial fibrillation; E87.6 Hypokalemia; E05.90 Thyrotoxicosis, unspecified without thyrotoxic crisis or storm; I10 Essential (primary) hypertension; Z74.01 Bed confinement status; R13.10 Dysphagia, unspecified
CPT/HCPCS: 36415; 36600; 71010-TC; 71275-TC; 74230-TC; 80053; 81003; 82375; 82550; 82803; 83050; 83605; 83880; 84439; 84443; 84484; 85025; 85379; 85610; 85651; 85730; 86140; 87040; 87086; 90670; 92611-GN; 93005; 93010; 93306-TC; 94660; 99283-25; J1644

== ENCOUNTER 2016-10-15 21:15 | Inpatient (IN) | payer OTHER ==
[2016-10-15] MEDS ORDERED: MIDAZOLAM HCL 2 MG/2 ML SINGLE DOSE VIAL ONE (21:30)
[2016-10-15] MEDS ORDERED: ETOMIDATE 20 MG/10 ML AMPUL IVPUSH ONE (21:51)
[2016-10-15] MEDS ORDERED: SUCCINYLCHOLINE CHLORIDE 200 MG/10 ML VIAL ONE (21:52)
--- NOTE | 2016-10-15 21:59 | PDOC ---
Attending Attestation - Critical Care Time Total Critical Care Time: 30 Critical Care Statement: The care of this patient involved high complexity decision making to prevent further life threatening deterioration of the patient 's condition and/or to evalute & treat vital organ system(s) failure or risk of failure. <Leeanna Pimentel - Last Filed: 10/15/16 23:05> - Resident Resident Name: Som Fitzgerald - HPI HPI: 10/16/16 00:49 Pt presents to the ED in respiratory failure after intubated by EMS. History of ALS, with recent admission for respiratory failure. - Physicial Exam PE: 10/16/16 00:50 Pt presents to the ED intubated by EMS for respiratory failure. Intubated by EMS. Brief cardiac arrest that resolved after epi x 1 and bicarb. Crash femoral line placed during code. - Medical Decision Making 10/16/16 00:52 Pt presents to the ED after intubated by EMS for respiratory failure. Labs show no acute abnormalities. Admitted to MICU. Dr. Wolfe requests admission to service. Case discussed with hospitalist and MICU OBSTETRICS/GYNECOLOGY NURSE. <Shereen Wall - Last Filed: 10/16/16 00:54>
[2016-10-15] MEDS ORDERED: SODIUM CHLORIDE 0.9% 1000 ML INFUS.BAG IV ONE (22:06)
[2016-10-15] MEDS ORDERED: SODIUM BICARBONATE 4.2% 5 MEQ/10 ML DISP.SYRIN IVPUSH ONE (22:10)
[2016-10-15] MEDS ORDERED: MIDAZOLAM HCL 2 MG/2 ML SINGLE DOSE VIAL IVPUSH ONE (22:10)
[2016-10-15] MEDS ORDERED: SODIUM CHLORIDE 1,000 ML IV STA (22:14)
[2016-10-15 22:35] LABS: BASOPHIL 0.2 % (0-2.0); MCH 30.2 pg (25.7-33.7); MCHC 32.4 g/dl (32.0-36.0); MEAN CELL VOLUME 92.9 fl (80-96); NEUTROPHILS 90.2 % (42.8-82.8); PLATELET COUNT 204 K/MM3 (134-434); RDW 14.8 % (11.6-15.6); WHITE BLOOD COUNT 9.3 K/mm3 (4.0-10.0)
[2016-10-15 22:44] LABS: URINE APPEARANCE CLEAR; URINE BILIRUBIN NEGATIVE (NEGATIVE); URINE BLOOD 2+ (NEGATIVE); URINE COLOR STRAW; URINE GLUCOSE (UA) 3+ (NEGATIVE); URINE KETONE TRACE (NEGATIVE); URINE LEUK ESTERASE NEGATIVE (NEGATIVE); URINE NITRITE NEGATIVE (NEGATIVE); URINE UROBILINOGEN NEGATIVE mg/dL (0.2-1.0)
[2016-10-15 22:48] LABS: INR 1.27 (0.82-1.09); URINE PROTEIN 1+ (NEGATIVE)
[2016-10-15 22:49] LABS: URINE BACTERIA RARE /hpf (NONE SEEN); URINE HYALINE CAST 7 /lpf; URINE MUCUS RARE; URINE RBC 3 /hpf (0-3); URINE WBC 5 /hpf (3-5)
[2016-10-15 22:50] LABS: ACTIVATED PTT 27.4 SECONDS (26.9-34.4)
[2016-10-15 22:57] LABS: ALBUMIN 2.6 g/dl (3.4-5.0); ANION GAP 9 (8-16); BILIRUBIN,TOTAL 0.3 mg/dL (0.2-1.0); CALCIUM 8.4 mg/dL (8.5-10.1); CO2 38 mmol/L (21-32); CREATININE 0.4 mg/dL (0.55-1.02); GLUCOSE,RANDOM 241 mg/dL (74-106); SGOT/AST 74 U/L (15-37); SGPT/ALT 77 U/L (12-78)
[2016-10-15 23:00] LABS: ALK PHOS 100 U/L (45-117); TROPONIN I < 0.02 ng/ml (0.00-0.05)
[2016-10-15] MEDS: MIDAZOLAM 100 MG in SODIUM CHLORIDE 100 ML IVPB SCH (23:04)
--- NOTE | 2016-10-15 23:14 | PDOC ---
History of Present Illness - General Chief Complaint: Respiratory Arrest Stated Complaint: RESPIRATORY DISTRESS Time Seen by Provider: 10/15/16 21:58 History Source: Family Exam Limitations: Intubated, Unresponsive - History of Present Illness Initial Comments: 10/15/16 23:13 The patient is a 56F with a PMH of ALS, HTN, hyperthyroidism, and goiter who presented to the ED via EMS for AMS and IESHA. The son states that he was visiting his mother at a jail facility and noticed that she was not as alert as she normally is. He also noted that she was breathing through her mouth. He states that his mother (the patient) took a nap, then woke up more altered and was staring at the ceiling. This happpened around 8:20 pm, where the son states that the patient look "disheveled". EMS was called and per the son, EMS said her vitals were stable and she was not unconscious. Per EMS she was intubated en route to the ED. Past History - Past Medical History Allergies/Adverse Reactions: Allergies Allergy/AdvReac Type Severity Reaction Status Date / Time No Known Allergies Allergy Verified 10/15/16 21:26 Home Medications: Ambulatory Orders Metoprolol Tartrate [Lopressor -] 50 mg PO BID tablet 10/12/16 Apixaban [Eliquis -] 5 mg PO DAILY 10/15/16 Methimazole 10 mg PO DAILY 10/15/16 Mirtazapine [Remeron -] 15 mg PO DAILY 10/15/16 Sennosides [Senna] 8.6 mg PO DAILY 10/15/16 HTN: Yes Thyroid Disease: Yes (HYPO) - Immunization History Immunization Up to Date: No - Psycho/Social/Smoking Cessation Hx Anxiety: No Suicidal Ideation: No Smoking Status: No Smoking History: Unknown if ever smoked Have you smoked in the past 12 months: No Number of Cigarettes Smoked Daily: 0 Information on smoking cessation initiated: No Hx Alcohol Use: No Drug/Substance Use Hx: No Substance Use Type: None Hx Substance Use Treatment: No Review of Systems - Review of Systems Able to Perform ROS?: No *Physical Exam - Vital Signs Last Vital Signs Temp Pulse Resp BP Pulse Ox 81 16 62/44 100 10/15/16 21:47 10/15/16 21:47 10/15/16 21:26 10/15/16 21:47 - Physical Exam Comments: 10/16/16 07:40 Patient is intubated. 10/16/16 07:49 Respiratory/Chest: positive: Lungs Clear, Normal Breath Sounds. negative: Respiratory Distress, Accessory Muscle Use Cardiovascular: positive: Regular Rhythm, Regular Rate, S1, S2 Gastrointestinal/Abdominal: positive: Flat, Soft. negative: Tender Procedures - Central Line Central Line Lumen: triple Central Line Position: femoral (R) Amount of anesthesia (ccs): 0 Complications: Crash line Post Central Line Insertion: sutured, good blood return ED Treatment Course - LABORATORY CBC & Chemistry Diagram: 10/16/16 05:10 10/16/16 05:10 - ADDITIONAL ORDERS Additional order review: Laboratory Results 10/15/16 10/15/16 10/15/16 22:23 22:23 22:23 INR 1.27 H PTT (Actin FS) 27.4 Sodium 145 Potassium 3.9 Chloride 98 Carbon Dioxide 38 H Anion Gap 9 BUN 14 D Creatinine 0.4 L D Creat Clearance w eGFR > 60 Random Glucose 241 H D Calcium 8.4 L Total Bilirubin 0.3 AST 74 H D ALT 77 D Alkaline Phosphatase 100 Creatine Kinase 38 Troponin I < 0.02 Total Protein 6.0 L Albumin 2.6 L Urine Color Straw Urine Appearance Clear Urine pH 8.0 D Urine Protein 1+ H Urine Glucose (UA) 3+ H Urine Ketones Trace H Urine Blood 2+ H Urine Nitrite Negative Urine Bilirubin Negative Urine Urobilinogen Negative Ur Leukocyte Esterase Negative Urine RBC 3 Urine WBC 5 Ur Epithelial Cells Rare Urine Bacteria Rare Hyaline Casts 7 Urine Mucus Rare 10/15/16 22:23 RBC 4.32 MCV 92.9 MCHC 32.4 RDW 14.8 MPV 10.0 Neutrophils % 90.2 H D Lymphocytes % 5.9 L D Monocytes % 3.7 L Eosinophils % 0.0 D Basophils % 0.2 - RADIOLOGY Radiology Studies Ordered: Category Date Time Status CHEST X-RAY PORTABLE* [RAD] Stat Radiology 10/15/16 22:06 Taken - Medications Given in the ED: ED Medications Discontinued Medications Generic Name Dose Route Start Last Admin Trade Name Freq PRN Reason Stop Dose Admin Epinephrine HCl 1 mg 10/15/16 22:10 10/15/16 23:03 Adrenalin 1:10,000 - IVPUSH 10/15/16 22:11 1 mg ONCE ONE Administration Fentanyl 50 mcg 10/15/16 22:10 10/15/16 23:03 Sublimaze Injection - IVPUSH 10/15/16 22:11 50 mcg ONCE ONE Administration Sodium Chloride 1,000 mls @ 1,000 mls/hr 10/15/16 22:14 10/15/16 23:03 Normal Saline - IV 10/15/16 23:13 1,000 mls/hr ASDIR STA Administration Midazolam HCl 2 mg 10/15/16 22:10 10/15/16 23:03 Versed - IVPUSH 10/15/16 22:11 2 mg ONCE ONE Administration Sodium Bicarbonate 4.2 meq 10/15/16 22:10 10/15/16 23:03 Sodium Bicarbonate 4.2% - IVPUSH 10/15/16 22:11 4.2 meq ONCE ONE Administration Sodium Chloride 500 ml 10/15/16 22:06 10/15/16 23:03 Normal Saline - IV 10/15/16 22:07 500 ml ONCE ONE Administration Medical Decision Making - Critical Care Time Total Critical Care Time (minutes): 35 Critical Care Statement: The care of this patient involved high complexity decision making to prevent further life threatening deterioration of the patient 's condition and/or to evalute & treat vital organ system(s) failure or risk of failure. - Medical Decision Making 10/16/16 07:49 Patient is a 56F with worsening ALS who presented via EMS already intubated. The patient had 5 minutes of cardiac arrest and required a crash central line, which I placed. The patient was transferred to ICU after initial stabilizing treatments. *DC/Admit/Observation/Transfer Diagnosis at time of Disposition: Respiratory arrest
[2016-10-15 23:15] LABS: ALLENS TEST POSITIVE; ART PUNCT SITE RIGHT BRACHIAL; ARTERIAL BLD GAS O2 SATURATION 99.4 % (90-98.9); ARTERIAL BLOOD GAS BASE EXCESS 12.9 meq/l (-2-2); LPM/O2% 60%; MECH. VENT. YES; PT. ON O2? YES; TYPE OF O2 MECH VENT
[2016-10-15 23:16] LABS: VENT RATE 16; VT/PRESS 450
[2016-10-15 23:17] LABS: ARTERIAL BLOOD GAS HCO3 36.3 meq/L (22-26); ARTERIAL BLOOD GAS pH 7.58 (7.35-7.45)
--- NOTE | 2016-10-15 23:30 | PN ---
Teaching Attending Note Name of Resident: Renan Bradford ATTENDING PHYSICIAN STATEMENT I saw and evaluated the patient. I reviewed the resident's note and discussed the case with the resident. I agree with the resident's findings and plan as documented. SUBJECTIVE: 56 yo F with advanced ALS, chronic hypercapnic respiratory failure, hyperthyriodism, HTN, HLD, PAfib w RVR with recent admission for respiratory distress and PAFIB, who was intubated on the field for respiratory distress. Pt. had cardiac arrest VTACH, with ROSC in ED. As per family she was had shortness of breath today and increased cough. As per son she had no fever, no chest pain or pressure at NH. OBJECTIVE: Physical: VS: Vital Signs Period Temp Pulse Resp BP Sys/Hatch Pulse Ox Last 24 Hr 99 F 81-88 16-16 62/44 100-100 GEN: Intubated and Sedated at bedside HEENT: ET tube in place, NCAT, PERRl CARD: RRR S1, S2 RESP: Decreased breath sounds at bases ABD: BS X4, NTD to palpation EXT: - C/C/E CBCD WBC 9.3 K/mm3 (4.0-10.0) 10/15/16 22: RBC 4.32 M/mm3 (3.60-5.2) 10/15/16 22:23 Hgb 13.0 GM/dL (10.7-15.3) 10/15/16 22:23 Hct 40.2 % (32.4-45.2) 10/15/16 22:23 MCV 92.9 fl (80-96) 10/15/16 22:23 MCHC 32.4 g/dl (32.0-36.0) 10/15/16 22:23 RDW 14.8 % (11.6-15.6) 10/15/16 22:23 Plt Count 204 K/MM3 (134-434) 10/15/16 22:23 MPV 10.0 fl (7.5-11.1) 10/15/16 22:23 CMP Sodium 145 mmol/L (136-145) 10/15/16 22:23 Potassium 3.9 mmol/L (3.5-5.1) 10/15/16 22:23 Chloride 98 mmol/L (98-107) 10/15/16 22:23 Carbon Dioxide 38 mmol/L (21-32) H 10/15/16 22:23 Anion Gap 9 (8-16) 10/15/16 22:23 BUN 14 mg/dL (7-18) D 10/15/16 22:23 Creatinine 0.4 mg/dL (0.55-1.02) L D 10/15/16 22:23 Creat Clearance w eGFR > 60 (>60) 10/15/16 22:23 Random Glucose 241 mg/dL (74-106) H D 10/15/16 22:23 Calcium 8.4 mg/dL (8.5-10.1) L 10/15/16 22:23 Total Bilirubin 0.3 mg/dL (0.2-1.0) 10/15/16 22:23 AST 74 U/L (15-37) H D 10/15/16 22:23 ALT 77 U/L (12-78) D 10/15/16 22:23 Alkaline Phosphatase 100 U/L (45-117) 10/15/16 22:23 Total Protein 6.0 g/dl (6.4-8.2) L 10/15/16 22:23 Albumin 2.6 g/dl (3.4-5.0) L 10/15/16 22:23 CARDIAC ENZYMES Creatine Kinase 38 IU/L (26-192) 10/15/16 22:23 Troponin I < 0.02 ng/ml (0.00-0.05) 10/15/16 22:23 ABG Results ABG pH 7.58 (7.35-7.45) H D 10/15/16 23:03 ABG pCO2 at Pt Temp 38.9 mmHg (35-45) D 10/15/16 23:03 ABG pO2 at Pt Temp 172.0 mmHg (80-100) H* 10/15/16 23:03 ABG HCO3 36.3 meq/L (22-26) H 10/15/16 23:03 ABG O2 Sat (Measured) 99.4 % (90-98.9) H 10/15/16 23:03 ABG O2 Content 18.0 % vol (15-22) 10/15/16 23:03 ABG Base Excess 12.9 meq/l (-2-2) H 10/15/16 23:03 CXR: ?L. base Consolidation, Cardiomegaly EKG: NSR 96, LAE Qtc 487 ASSESSMENT AND PLAN: 56 yo F with pmhx of chronic hypercapnic respiratory failure from ALS, Hyperthyriodism, HTN, P afib, ALS, who presented with respiratory distress and cardiac arrest, with ROSC 1.) Acute on Chronic Respiratory Failure - A/C - ABG/CXR am 2.) ?Pneumonia ? Possible Aspiration - Empiric coverage with Vanco/Zosyn - Urine AGs - Repeat LA (elevation most likely due to arrest) 3.) Hyperthyriodism - STAT TSH - C/W Methimazole 4.) HTN - Hold all meds 3.) Hx of Afib - NSR - C/W Eliquis - C/W BB when able to with BP 4.) Dvt Ppx - Eliquis 5.) GI Ppx - Protonix Place in ICU, CC time 40 minutes Case signed out to park naturalist
--- NOTE | 2016-10-15 23:48 | PDOC ---
History of Present Illness - General Chief Complaint: Respiratory Arrest Stated Complaint: RESPIRATORY DISTRESS Time Seen by Provider: 10/15/16 21:58 History Source: Family Exam Limitations: Intubated, Unresponsive - History of Present Illness Initial Comments: 10/15/16 23:43 The patient is a 56F with a PMH of worsening ALS, hyperthyroidism, HTN, HLD, and goiter who presented to the ED via EMS after respiratory arrest. Family provided the history. Her son states that he visited her around 6pm this evening and noticed that she was not as alert as she normally is. She was on 4L NC and was breathing out of her mouth. He states that the patient took a nap for 1 hour and thought the patient was doing better. When she woke up from her nap she was more disoriented and seemed to have a gaze that was abnormal to the family. The family called 911. EMS did vitals on the scene which were reported per family as stable. As she was being transferred to [facility], (per family) the EMS asked if they could intubate the patient and the family agreed. She arrived to [facility] already intubated and we proceeded to stabilize the patient. Past History - Past Medical History Allergies/Adverse Reactions: Allergies Allergy/AdvReac Type Severity Reaction Status Date / Time No Known Allergies Allergy Verified 10/15/16 21:26 Home Medications: Ambulatory Orders Metoprolol Tartrate [Lopressor -] 50 mg PO BID tablet 10/12/16 Apixaban [Eliquis -] 5 mg PO DAILY 10/15/16 Methimazole 10 mg PO DAILY 10/15/16 Mirtazapine [Remeron -] 15 mg PO DAILY 10/15/16 Sennosides [Senna] 8.6 mg PO DAILY 10/15/16 HTN: Yes Thyroid Disease: Yes (HYPO) - Immunization History Immunization Up to Date: No - Psycho/Social/Smoking Cessation Hx Anxiety: No Suicidal Ideation: No Smoking Status: No Smoking History: Unknown if ever smoked Have you smoked in the past 12 months: No Number of Cigarettes Smoked Daily: 0 Information on smoking cessation initiated: No Hx Alcohol Use: No Drug/Substance Use Hx: No Substance Use Type: None Hx Substance Use Treatment: No Review of Systems - Review of Systems Able to Perform ROS?: No *Physical Exam - Vital Signs Last Vital Signs Temp Pulse Resp BP Pulse Ox 99 F 81 16 62/44 100 10/15/16 23:28 10/15/16 21:47 10/15/16 23:00 10/15/16 21:26 10/15/16 21:47 - Physical Exam General Appearance: Yes: Other (intubated) Respiratory/Chest: positive: Lungs Clear, Normal Breath Sounds. negative: Chest Tender, Respiratory Distress, Decreased Breath Sounds, Crackles, Rales, Rhonchi Cardiovascular: positive: Regular Rhythm, Regular Rate, S1, S2 ED Treatment Course - LABORATORY CBC & Chemistry Diagram: 10/30/16 05:15 10/30/16 05:15 - ADDITIONAL ORDERS Additional order review: Laboratory Results 10/15/16 10/15/16 10/15/16 23:03 22:23 22:23 WBC RBC Hgb Hct MCV MCH MCHC RDW Plt Count MPV Neutrophils % Lymphocytes % Monocytes % Eosinophils % Basophils % INR PTT (Actin FS) Puncture Site Right brachial ABG pH 7.58 H D ABG pCO2 at Pt Temp 38.9 D ABG pO2 at Pt Temp 172.0 H* ABG HCO3 36.3 H ABG O2 Sat (Measured) 99.4 H ABG O2 Content 18.0 ABG Base Excess 12.9 H Corwin Test Positive O2 Delivery Device Mech vent Oxygen Flow Rate 60% Vent Mode A/c Vent Rate 16 Mechanical Rate Yes PEEP 5.0 Pressure Support Vent 450 Sodium Potassium Chloride Carbon Dioxide Anion Gap BUN Creatinine Creat Clearance w eGFR Random Glucose Lactic Acid 4.9 H* Calcium Total Bilirubin AST ALT Alkaline Phosphatase Creatine Kinase Troponin I Total Protein Albumin Urine Color Urine Appearance Urine pH Urine Protein Urine Glucose (UA) Urine Ketones Urine Blood Urine Nitrite Urine Bilirubin Urine Urobilinogen Ur Leukocyte Esterase Urine RBC Urine WBC Ur Epithelial Cells Urine Bacteria Hyaline Casts Urine Mucus Blood Type O POSITIVE Antibody Screen Negative 10/15/16 10/15/16 10/15/16 22:23 22:23 22:23 WBC RBC Hgb Hct MCV MCH MCHC RDW Plt Count MPV Neutrophils % Lymphocytes % Monocytes % Eosinophils % Basophils % INR 1.27 H PTT (Actin FS) 27.4 Puncture Site ABG pH ABG pCO2 at Pt Temp ABG pO2 at Pt Temp ABG HCO3 ABG O2 Sat (Measured) ABG O2 Content ABG Base Excess Corwin Test O2 Delivery Device Oxygen Flow Rate Vent Mode Vent Rate Mechanical Rate PEEP Pressure Support Vent Sodium 145 Potassium 3.9 Chloride 98 Carbon Dioxide 38 H Anion Gap 9 BUN 14 D Creatinine 0.4 L D Creat Clearance w eGFR > 60 Random Glucose 241 H D Lactic Acid Calcium 8.4 L Total Bilirubin 0.3 AST 74 H D ALT 77 D Alkaline Phosphatase 100 Creatine Kinase 38 Troponin I < 0.02 Total Protein 6.0 L Albumin 2.6 L Urine Color Straw Urine Appearance Clear Urine pH 8.0 D Urine Protein 1+ H Urine Glucose (UA) 3+ H Urine Ketones Trace H Urine Blood 2+ H Urine Nitrite Negative Urine Bilirubin Negative Urine Urobilinogen Negative Ur Leukocyte Esterase Negative Urine RBC 3 Urine WBC 5 Ur Epithelial Cells Rare Urine Bacteria Rare Hyaline Casts 7 Urine Mucus Rare Blood Type Antibody Screen 10/15/16 22:23 WBC 9.3 RBC 4.32 Hgb 13.0 Hct 40.2 MCV 92.9 MCH 30.2 MCHC 32.4 RDW 14.8 Plt Count 204 MPV 10.0 Neutrophils % 90.2 H D Lymphocytes % 5.9 L D Monocytes % 3.7 L Eosinophils % 0.0 D Basophils % 0.2 INR PTT (Actin FS) Puncture Site ABG pH ABG pCO2 at Pt Temp ABG pO2 at Pt Temp ABG HCO3 ABG O2 Sat (Measured) ABG O2 Content ABG Base Excess Corwin Test O2 Delivery Device Oxygen Flow Rate Vent Mode Vent Rate Mechanical Rate PEEP Pressure Support Vent Sodium Potassium Chloride Carbon Dioxide Anion Gap BUN Creatinine Creat Clearance w eGFR Random Glucose Lactic Acid Calcium Total Bilirubin AST ALT Alkaline Phosphatase Creatine Kinase Troponin I Total Protein Albumin Urine Color Urine Appearance Urine pH Urine Protein Urine Glucose (UA) Urine Ketones Urine Blood Urine Nitrite Urine Bilirubin Urine Urobilinogen Ur Leukocyte Esterase Urine RBC Urine WBC Ur Epithelial Cells Urine Bacteria Hyaline Casts Urine Mucus Blood Type Antibody Screen 10/15/16 22:23 RBC 4.32 MCV 92.9 MCHC 32.4 RDW 14.8 MPV 10.0 Neutrophils % 90.2 H D Lymphocytes % 5.9 L D Monocytes % 3.7 L Eosinophils % 0.0 D Basophils % 0.2 - RADIOLOGY Radiology Studies Ordered: Category Date Time Status CHEST X-RAY PORTABLE* [RAD] Stat Radiology 10/15/16 22:06 Taken - Medications Given in the ED: ED Medications Discontinued Medications Generic Name Dose Route Start Last Admin Trade Name Freq PRN Reason Stop Dose Admin Epinephrine HCl 1 mg 07/24/17 22:10 10/15/16 23:03 Adrenalin 1:10,000 - IVPUSH 10/15/16 22:11 1 mg ONCE ONE Administration Fentanyl 50 mcg 10/15/16 22:10 10/15/16 23:03 Sublimaze Injection - IVPUSH 10/15/16 22:11 50 mcg ONCE ONE Administration Sodium Chloride 1,000 mls @ 1,000 mls/hr 10/15/16 22:14 10/15/16 23:03 Normal Saline - IV 10/15/16 23:13 1,000 mls/hr ASDIR STA Administration Midazolam HCl 2 mg 10/15/16 22:10 10/15/16 23:03 Versed - IVPUSH 10/15/16 22:11 2 mg ONCE ONE Administration Sodium Bicarbonate 4.2 meq 10/15/16 22:10 10/15/16 23:03 Sodium Bicarbonate 4.2% - IVPUSH 10/15/16 22:11 4.2 meq ONCE ONE Administration Sodium Chloride 500 ml 10/15/16 22:06 10/15/16 23:03 Normal Saline - IV 10/15/16 22:07 500 ml ONCE ONE Administration Medical Decision Making - Medical Decision Making 10/15/16 23:49 The patient is a 56F with worsening ALS. She came via EMS already intubated. We began stabilizing treatment including a crash femoral line and optimizing ventilation settings. The patient had cardiac arrest for 5 minutes and we achieved ROSC. Dr. Wolfe was called and wanted admission to the ICU with the service (hospitalist). ICU has been paged and accepts the admission. *DC/Admit/Observation/Transfer Diagnosis at time of Disposition: Respiratory arrest - Discharge Dispostion Admit: Yes - Referrals - Attestations Physician Attestion: 10/30/16 12:56 I, Dr. Som Fitzgerald, attest that this document has been prepared under my direction and personally reviewed by me in its entirety. I further attest, that it accurately reflects all work, treatment, procedures and medical decision -making performed by me.
--- NOTE | 2016-10-16 00:14 | HP ---
HISTORY OF PRESENT ILLNESS: Unable to obtain from patient due to medical condition. All information obtained from records, ED staff, and family. Patient is a 56 year old female with a significant PMHx of ALS, HTN, Hyperthyroidism, MDD who was BIBEMS for respiratory failure s/p intubation en route. As per patients family, around 18:00 today they went to visit her and noticed she was lethargic and short of breath. She then took a nap and when she woke up, she was more altered with worsening shortness of breath and increasing cough. They called 911 due to worsening respiratory failure and then intubated patient. When she arrived in the ED patient went into cardiac arrest and ACLS was initiated. Patient has ROSC within five minutes and was found to be hypotensive. Patient was recently admitted and discharged (10/12/16 ) for acute respiratory failure likely from worsening ALS. PHYSICAL EXAMINATION Vital Signs - 24 hr 10/15/16 10/15/16 10/15/16 21:26 21:47 23:00 Temperature Pulse Rate 88 81 Respiratory 16 16 16 Rate Blood Pressure 62/44 O2 Sat by Pulse 100 100 Oximetry (%) 10/15/16 23:28 Temperature 99 F Pulse Rate Respiratory Rate Blood Pressure O2 Sat by Pulse Oximetry (%) GENERAL: Intubated and sedated LUNGS: Decreased breath sounds throughout lung bases. HEART: Regular rate and rhythm, normal S1 and S2 without murmur, rub or gallop. ABDOMEN: Soft, nontender, not distended, normoactive bowel sounds, no guarding, no rebound, no masses. LOWER EXTREMITIES: No peripheral edema. Laboratory Results - last 24 hr 10/15/16 10/15/16 10/15/16 22:23 22:23 22:23 WBC 9.3 RBC 4.32 Hgb 13.0 Hct 40.2 MCV 92.9 MCH 30.2 MCHC 32.4 RDW 14.8 Plt Count 204 MPV 10.0 Neutrophils % 90.2 H D Lymphocytes % 5.9 L D Monocytes % 3.7 L Eosinophils % 0.0 D Basophils % 0.2 INR 1.27 H PTT (Actin FS) 27.4 Puncture Site ABG pH ABG pCO2 at Pt Temp ABG pO2 at Pt Temp ABG HCO3 ABG O2 Sat (Measured) ABG O2 Content ABG Base Excess Corwin Test O2 Delivery Device Oxygen Flow Rate Vent Mode Vent Rate Mechanical Rate PEEP Pressure Support Vent Sodium Potassium Chloride Carbon Dioxide Anion Gap BUN Creatinine Creat Clearance w eGFR Random Glucose Lactic Acid Calcium Total Bilirubin AST ALT Alkaline Phosphatase Creatine Kinase Troponin I Total Protein Albumin Urine Color Straw Urine Appearance Clear Urine pH 8.0 D Urine Protein 1+ H Urine Glucose (UA) 3+ H Urine Ketones Trace H Urine Blood 2+ H Urine Nitrite Negative Urine Bilirubin Negative Urine Urobilinogen Negative Ur Leukocyte Esterase Negative Urine RBC 3 Urine WBC 5 Ur Epithelial Cells Rare Urine Bacteria Rare Hyaline Casts 7 Urine Mucus Rare Blood Type Antibody Screen 10/15/16 10/15/16 10/15/16 22:23 22:23 22:23 WBC RBC Hgb Hct MCV MCH MCHC RDW Plt Count MPV Neutrophils % Lymphocytes % Monocytes % Eosinophils % Basophils % INR PTT (Actin FS) Puncture Site ABG pH ABG pCO2 at Pt Temp ABG pO2 at Pt Temp ABG HCO3 ABG O2 Sat (Measured) ABG O2 Content ABG Base Excess Corwin Test O2 Delivery Device Oxygen Flow Rate Vent Mode Vent Rate Mechanical Rate PEEP Pressure Support Vent Sodium 145 Potassium 3.9 Chloride 98 Carbon Dioxide 38 H Anion Gap 9 BUN 14 D Creatinine 0.4 L D Creat Clearance w eGFR > 60 Random Glucose 241 H D Lactic Acid 4.9 H* Calcium 8.4 L Total Bilirubin 0.3 AST 74 H D ALT 77 D Alkaline Phosphatase 100 Creatine Kinase 38 Troponin I < 0.02 Total Protein 6.0 L Albumin 2.6 L Urine Color Urine Appearance Urine pH Urine Protein Urine Glucose (UA) Urine Ketones Urine Blood Urine Nitrite Urine Bilirubin Urine Urobilinogen Ur Leukocyte Esterase Urine RBC Urine WBC Ur Epithelial Cells Urine Bacteria Hyaline Casts Urine Mucus Blood Type O POSITIVE Antibody Screen Negative 10/15/16 23:03 WBC RBC Hgb Hct MCV MCH MCHC RDW Plt Count MPV Neutrophils % Lymphocytes % Monocytes % Eosinophils % Basophils % INR PTT (Actin FS) Puncture Site Right brachial ABG pH 7.58 H D ABG pCO2 at Pt Temp 38.9 D ABG pO2 at Pt Temp 172.0 H* ABG HCO3 36.3 H ABG O2 Sat (Measured) 99.4 H ABG O2 Content 18.0 ABG Base Excess 12.9 H Corwin Test Positive O2 Delivery Device Mech vent Oxygen Flow Rate 60% Vent Mode A/c Vent Rate 16 Mechanical Rate Yes PEEP 5.0 Pressure Support Vent 450 Sodium Potassium Chloride Carbon Dioxide Anion Gap BUN Creatinine Creat Clearance w eGFR Random Glucose Lactic Acid Calcium Total Bilirubin AST ALT Alkaline Phosphatase Creatine Kinase Troponin I Total Protein Albumin Urine Color Urine Appearance Urine pH Urine Protein Urine Glucose (UA) Urine Ketones Urine Blood Urine Nitrite Urine Bilirubin Urine Urobilinogen Ur Leukocyte Esterase Urine RBC Urine WBC Ur Epithelial Cells Urine Bacteria Hyaline Casts Urine Mucus Blood Type Antibody Screen ASSESSMENT/PLAN: Patient is a 56 year old female with a PMHx of ALS, HTN, Paroxysmal A.fib hyperthyroidism, MDD who was BIBEMS for acute respiratory failure s/p intubation en route and cardiac arrest in the ED. Patient admitted to ICU for further monitoring and management. Acute on Chronic Respiratory Failure s/p Intubation and Cardiac Arrest -Likely secondary to worsening ALS with possible Aspiration Pneumonia -S/P intubation -One dose Zosyn 3.375 and Vanco 1gm for empiric coverage -Repeat CXR and ABG -Repeat Lactic Acid. First level likely elevated from cardiac arrest -Urine antigens ordered Hyperthyroidism -TSH levels ordered -Continue home medication Methimazole but through OG tube route Paroxysmal A.fib -Continue home medication Eliquis -Cardiac monitoring HTN -Currently Hypotensive -Hold anti-HTN medications -Continue to monitor BP Major Depressive Disorder -Continue home medication Remeron NGT route Prophylaxis -High Risk. Eliquis for DVT -Protonix IV for GI prophylaxis Disposition -Full code -Admit to ICU. Remains intubated and sedated Visit type - Emergency Visit Emergency Visit: Yes ED Registration Date: 10/15/16 Care time: The patient presented to the Emergency Department on the above date and was hospitalized for further evaluation of their emergent condition. - New Patient This patient is new to me today: Yes Date on this admission: 10/15/16 - Critical Care Critical Care patient: Yes Total Critical Care Time (in minutes): 45 Critical Care Statement: The care of this patient involved high complexity decision making to prevent further life threatening deterioration of the patient 's condition and/or to evalute & treat vital organ system(s) failure or risk of failure.
[2016-10-16] MEDS ORDERED: HEPARIN NA (PORCINE) 5,000 UNITS/ML 1ML VIAL SQ SCH (00:45)
[2016-10-16 00:50] VITALS: BMI 23.9
[2016-10-16] MEDS ORDERED: VANCOMYCIN 1 GRAM (PRE-DOCKED) 1,000 MG/250 ML BAG IVPB ONE (01:06)
[2016-10-16] MEDS ORDERED: PIPERACILLIN/TAZOB 3.375 GM/50 ML PRE-DOCKED IVPB ONE (01:15)
[2016-10-16] MEDS ORDERED: PIPERACILLIN/TAZOB 3.375 GM/50 ML PRE-DOCKED IVPB SCH ×2 (01:15→10:00)
--- NOTE | 2016-10-16 01:28 | CONSULT ---
Consult Consult Specialty:: PULM/CCM TIRE FIXER - History of Present Illness Chief Complaint: Respiratory failure History of Present Illness: 56 lauro with PMHx of ALS, HTN, HLD, Hypothyroidism who was BIBEMS after being found in respiratory distress at her NH. As per report she failed BiPAP trial and was progressively altered. En route she was orally intubated. On arriving at the ED she was noted to hypotensive to SBP 60's and pulseless. ACLS was initiated, epinephrine and Bicarb drip was given. Pt regained ROSC in less than 5mins of ACLS. A rt fem TLC was placed emergently. She did not require any pressors. Notable labs WBC 10, lact 4. CXR showed ETT in place a LLL effusion but no opacities. As per patients family, the patient is wheelchair bound and was sent to [facility] after a 3 day hospital stay for PNA in the setting of worsening disease and weakness. She was transferred to [facility] 10/12 for management. She was using the BiPAP on and off while there. There was no prodrone of URI, no fever, N/V/D, or s&s of dysphagia. She had passed her swallow eval in the last hospitalization and was allowed a regular diet. Around 18:00 today they went to visit her and noticed she was lethargic and short of breath. 911 was called due to worsening respiratory failure and she was intubated en route. she is now transferred to ICU for management. Rec'd in ICU orally intubated and sedated with versed drip. BP 100/65, HR82, O2 sat 100% on AC/VC 16,450,50%, 5. Started on Zosyn and vanco for empiric HCAP coverage. - History Source History Provided By: Medical Record Limitations to Obtaining History: Intubated - Past Medical History MANAGER [place]: Yes: Other (ALS) Cardio/Vascular: Yes: HTN, Hyperlipdemia Pulmonary: Yes: Pneumonia Musculoskeletal: Yes: Other (ALS) Endocrine: Yes: Hyperthyroidism - Alcohol/Substance Use Hx Alcohol Use: No History of Substance Use: reports: None - Smoking History Smoking history: Unknown if ever smoked Have you smoked in the past 12 months: No Aproximately how many cigarettes per day: 0 - Social History ADL: Family Assistance History of Recent Travel: No Home Medications - Allergies Allergies/Adverse Reactions: Allergies Allergy/AdvReac Type Severity Reaction Status Date / Time No Known Allergies Allergy Verified 10/15/16 21:26 - Home Medications Home Medications: Ambulatory Orders Metoprolol Tartrate [Lopressor -] 50 mg PO BID tablet 10/12/16 Apixaban [Eliquis -] 5 mg PO DAILY 10/15/16 Methimazole 10 mg PO DAILY 10/15/16 Mirtazapine [Remeron -] 15 mg PO DAILY 10/15/16 Sennosides [Senna] 8.6 mg PO DAILY 10/15/16 Family Disease History - Family Disease History Family Disease History: Other: Son (3, healthy) Review of Systems Unable to obtain ROS, reason: Intubated and sedated Physical Exam Vital Signs: Vital Signs Temperature 99.7 F H 10/16/16 00:38 Pulse Rate 87 10/16/16 00:38 Respiratory Rate 25 H 10/16/16 00:38 Blood Pressure 102/63 10/16/16 00:38 O2 Sat by Pulse Oximetry (%) 100 10/16/16 00:38 Constitutional: Yes: Well Nourished Eyes: Yes: Other (pupils pin point but reactive) HENT: Yes: Atraumatic, Normocephalic Neck: Yes: Trachea Midline Cardiovascular: Yes: Regular Rate and Rhythm Respiratory: Yes: Diminished (Lt base), Intubated, Mechanically Ventilated Gastrointestinal: Yes: Soft Renal/: Yes: Carrillo Present Musculoskeletal: Yes: Other (foot drop) Extremities: Yes: Cool Edema: No Peripheral Pulses WNL: Yes Integumentary: Yes: WNL Neurological: Yes: Other (sedated) Labs: CBC,CMP WBC 9.3 K/mm3 (4.0-10.0) 10/15/16 22:23 RBC 4.32 M/mm3 (3.60-5.2) 10/15/16 22:23 Hgb 13.0 GM/dL (10.7-15.3) 10/15/16 22:23 Hct 40.2 % (32.4-45.2) 10/15/16 22:23 MCV 92.9 fl (80-96) 10/15/16 22:23 MCH 30.2 pg (25.7-33.7) 10/15/16 22:23 MCHC 32.4 g/dl (32.0-36.0) 10/15/16 22:23 RDW 14.8 % (11.6-15.6) 10/15/16 22:23 Plt Count 204 K/MM3 (134-434) 10/15/16 22:23 MPV 10.0 fl (7.5-11.1) 10/15/16 22:23 Neutrophils % 90.2 % (42.8-82.8) H D 10/15/16 22:23 Lymphocytes % 5.9 % (8-40) L D 10/15/16 22:23 Monocytes % 3.7 % (3.8-10.2) L 10/15/16 22:23 Eosinophils % 0.0 % (0-4.5) D 10/15/16 22:23 Basophils % 0.2 % (0-2.0) 10/15/16 22:23 Sodium 145 mmol/L (136-145) 10/15/16 22:23 Potassium 3.9 mmol/L (3.5-5.1) 10/15/16 22:23 Chloride 98 mmol/L (98-107) 10/15/16 22:23 Carbon Dioxide 38 mmol/L (21-32) H 10/15/16 22:23 Anion Gap 9 (8-16) 10/15/16 22:23 BUN 14 mg/dL (7-18) D 10/15/16 22:23 Creatinine 0.4 mg/dL (0.55-1.02) L D 10/15/16 22:23 Creat Clearance w eGFR > 60 (>60) 10/15/16 22:23 Random Glucose 241 mg/dL (74-106) H D 10/15/16 22:23 Lactic Acid 4.9 mmol/L (0.4-2.0) H* 10/15/16 22:23 Calcium 8.4 mg/dL (8.5-10.1) L 10/15/16 22:23 Total Bilirubin 0.3 mg/dL (0.2-1.0) 10/15/16 22:23 AST 74 U/L (15-37) H D 10/15/16 22:23 ALT 77 U/L (12-78) D 10/15/16 22:23 Alkaline Phosphatase 100 U/L (45-117) 10/15/16 22:23 Creatine Kinase 38 IU/L (26-192) 10/15/16 22:23 Troponin I < 0.02 ng/ml (0.00-0.05) 10/15/16 22:23 Total Protein 6.0 g/dl (6.4-8.2) L 10/15/16 22:23 Albumin 2.6 g/dl (3.4-5.0) L 10/15/16 22:23 ABG Results ABG pH 7.58 (7.35-7.45) H D 10/15/16 23:03 ABG pCO2 at Pt Temp 38.9 mmHg (35-45) D 10/15/16 23:03 ABG pO2 at Pt Temp 172.0 mmHg (80-100) H* 10/15/16 23:03 ABG HCO3 36.3 meq/L (22-26) H 10/15/16 23:03 ABG O2 Sat (Measured) 99.4 % (90-98.9) H 10/15/16 23:03 ABG O2 Content 18.0 % vol (15-22) 10/15/16 23:03 ABG Base Excess 12.9 meq/l (-2-2) H 10/15/16 23:03 Vent AC/VC 16,400,40%,5 Imaging - Results Chest X-ray: Image Reviewed (ETT and OGT in place, trace BLL effusions L>R) Assessment/Plan 56 lauro with PMHx of ALS, HTN, HLD, Hypothyroidism who was BIBEMS after being found in respiratory distress at her NH. As per report she failed BiPAP trial and was progressively altered. En route she was orally intubated. On arriving at the ED she was noted to hypotensive to SBP 60's and pulseless. ACLS was initiated, epinephrine and Bicarb drip was given. Pt regained ROSC in less than 5mins of ACLS. A rt fem TLC was placed emergently. She did not require any pressors. Notable labs WBC 9.3 with 90%Neut, lact 4.9, trop<0.02. CXR showed ETT in place a LLL effusion but no opacities. She is transferred to ICU in respiratory failure m/l 2/2 worsening ALS with c/f aspiration pneumonitis +/- HCAP d/t recent hospitaliztion for PNA. Plan: Resp: Hypoxic respiratory failure m/l 2/2 worsening ALS with c/f PE+/- aspiration pneumonitis +/- HCAP d/t recent hospitaliztion for PNA. -Lung protective mech ventilation -Versed for comfort and vent synchrony -Fent pushes prn -Pulm toilet -Aspiration precautions -ABG, CXR -Lower extremity dopplers -Antibiotics as below -Discuss possibility of trach with family ID:Poss HCAP -Trend WBC and temps -f/u cultures -Zosyn and vanco for empiric HCAP coverage -Narrow antibiotics to culture results CV: PEA arrest in setting of hypoxic respiratory failure; currently not requiring vasopressors -HD monitoring -trend lactate and Troponin -ECG -TTE -Hold antihypertensives for now -Continue statins Renal: Stable -Moniotr UOP and BMP -Adequate hydration -Replete electrolytes Endocrine: Hyperthyroidism -Cont methimazole -Fingersticks q6 GI: -Tube feeds -H2B -Bowel regimen Proph: Hep SQ H2B
--- NOTE | 2016-10-16 01:29 | HP ---
CHIEF COMPLAINT: Respiratory Arrest on H/O ALS PCP: HISTORY OF PRESENT ILLNESS: Patient is 56 Yo, AA, female with H/O ALS, chronic hypercapnic repiratory failure, HTN, HLD, Hyperthyroidism, goiter, who presented to the ED via the EMS due to acute respiratory arrest. Patient was last seen on her health base line around 6 pm when her son saw her after she wake up from a nap, she was gasping for air, confused and disoriented. They call EMS who intubated her on her way to the ED. patient is bed bounded since January 2016. She was discharged from [facility] last week to the [facility] after Afib onset with RVR. SOB has worsened during last week. In the Ed patient had cardiac arrest for 5 min, she was resuscitated and stabilized and admitted to the ICU. ROS: Per family patient usually complains of dizziness, lightheadedness, back pain, cough when she aspirate, constipation 3times /week, UTI 2 months ago, anxiety, SOB . The family denies any fever, chills, hematuria or hemoptysis Recent Travel:NO PAST MEDICAL HISTORY: HTN, Hyperthyroidism,Goiter, ALS, UTI. PAST SURGICAL HISTORY:None Social History: Smoking:None Alcohol:None Drugs: None Family History: Allergies No Known Allergies Allergy (Verified 10/15/16 21:26) HOME MEDICATIONS: Home Medications Medication Instructions Recorded Metoprolol Tartrate [Lopressor -] 50 mg PO BID tablet 10/12/16 Apixaban [Eliquis -] 5 mg PO DAILY 10/15/16 Methimazole 10 mg PO DAILY 10/15/16 Mirtazapine [Remeron -] 15 mg PO DAILY 10/15/16 Sennosides [Senna] 8.6 mg PO DAILY 10/15/16 Current Medications Generic Name Dose Route Start Last Admin Trade Name Freq PRN Reason Stop Dose Admin Acetaminophen 1,000 mg 10/16/16 01:48 Ofirmev Injection - IVPB 10/16/16 19:49 Q6H PRN FEVER OR PAIN Apixaban 5 mg 10/16/16 10:00 Eliquis - PO DAILY SILVIA Chlorhexidine Gluconate 1 applic 10/16/16 22:00 Hibiclens For Decolonization - TP HS SILVIA Midazolam HCl 100 mg/ Sodium 100 mls @ 2 mls/hr 10/15/16 22:15 10/16/16 00:45 Chloride IVPB 4 mg/hr TITR SILVIA Titration Protocol 2 MG/HR Sodium Chloride 1,000 mls @ 75 mls/hr 10/16/16 01:00 10/16/16 01:38 Normal Saline - IV 75 mls/hr ASDIR SILVIA Administration Vancomycin HCl 1,000 mg/ 250 mls @ 200 mls/hr 10/16/16 14:00 Dextrose IVPB Q12H SILVIA Famotidine/Sodium Chloride 50 mls @ 100 mls/hr 10/16/16 10:00 Pepcid 20 Mg Premixed Ivpb - IVPB BID SILVIA Methimazole 10 mg 10/16/16 10:00 Tapazole - NGT DAILY SILVIA Mirtazapine 15 mg 10/16/16 10:00 Remeron - NGT DAILY SILVIA Mupirocin 1 applic 10/16/16 10:00 Bactroban Ointment (For Decolonization) - NS 10/21/16 09:59 BID SILVIA Piperacillin Sod/Tazobactam Sod 3.375 gm 10/16/16 10:00 Zosyn 3.375gm Ivpb (Pre-Docked) IVPB 10/23/16 09:59 Q8H-IV SILVIA Protocol REVIEW OF SYSTEMS CONSTITUTIONAL: Absent: fever, chills, diaphoresis, generalized weakness, malaise, loss of appetite. HEENT: Absent: rhinorrhea, nasal congestion, throat pain, throat swelling, difficulty swallowing, mouth swelling, ear pain, eye pain, visual changes CARDIOVASCULAR: Absent: chest pain, syncope, palpitations, irregular heart rate, lightheadedness , peripheral edema RESPIRATORY: Absent: cough, shortness of breath, dyspnea with exertion, orthopnea, wheezing, stridor, hemoptysis GASTROINTESTINAL: Absent: abdominal pain, abdominal distension, nausea, vomiting, diarrhea, constipation, melena, hematochezia GENITOURINARY: Absent: dysuria, frequency, urgency, hesitancy, hematuria, flank pain, genital pain MUSCULOSKELETAL: Absent: myalgia, arthralgia, joint swelling, back pain. SKIN: Absent: rash, itching, pallor HEMATOLOGIC/IMMUNOLOGIC: Absent: easy bleeding, easy bruising, lymphadenopathy, frequent infections ENDOCRINE: Absent: unexplained weight gain, unexplained weight loss, heat intolerance, cold intolerance NEUROLOGIC: Absent: headache, focal weakness or paresthesias, dizziness, unsteady gait, seizure, mental status changes, bladder or bowel incontinence PSYCHIATRIC: Absent: anxiety, depression, suicidal or homicidal ideation, hallucinations. PHYSICAL EXAMINATION Vital Signs - 24 hr 10/15/16 10/15/16 10/15/16 21:26 21:47 23:00 Temperature Pulse Rate 88 81 Respiratory 16 16 16 Rate Blood Pressure 62/44 O2 Sat by Pulse 100 100 Oximetry (%) 10/15/16 10/16/16 10/16/16 23:28 00:38 01:15 Temperature 99 F 99.7 F H Pulse Rate 87 Respiratory 25 H 16 Rate Blood Pressure 102/63 O2 Sat by Pulse 100 Oximetry (%) GENERAL: Intubated , sedated HEAD: Normal with no signs of trauma. LUNGS: Diminished breath sounds at bases B/L, No wheezes, and no crackles. No accessory muscle use. HEART: Regular rate and rhythm, normal S1 and S2 without murmur, rub or gallop. ABDOMEN: Soft, nontender, not distended, normoactive bowel sounds, no guarding, no rebound, no masses. No hepatomegaly or splenomegaly. UPPER EXTREMITIES: No peripheral edema. LOWER EXTREMITIES: No peripheral edema. Laboratory Results - last 24 hr 10/15/16 10/15/16 10/15/16 22:23 22:23 22:23 WBC 9.3 RBC 4.32 Hgb 13.0 Hct 40.2 MCV 92.9 MCH 30.2 MCHC 32.4 RDW 14.8 Plt Count 204 MPV 10.0 Neutrophils % 90.2 H D Lymphocytes % 5.9 L D Monocytes % 3.7 L Eosinophils % 0.0 D Basophils % 0.2 INR 1.27 H PTT (Actin FS) 27.4 Puncture Site ABG pH ABG pCO2 at Pt Temp ABG pO2 at Pt Temp ABG HCO3 ABG O2 Sat (Measured) ABG O2 Content ABG Base Excess Corwin Test O2 Delivery Device Oxygen Flow Rate Vent Mode Vent Rate Mechanical Rate PEEP Pressure Support Vent Sodium Potassium Chloride Carbon Dioxide Anion Gap BUN Creatinine Creat Clearance w eGFR Random Glucose Lactic Acid Calcium Total Bilirubin AST ALT Alkaline Phosphatase Creatine Kinase Troponin I Total Protein Albumin Urine Color Straw Urine Appearance Clear Urine pH 8.0 D Urine Protein 1+ H Urine Glucose (UA) 3+ H Urine Ketones Trace H Urine Blood 2+ H Urine Nitrite Negative Urine Bilirubin Negative Urine Urobilinogen Negative Ur Leukocyte Esterase Negative Urine RBC 3 Urine WBC 5 Ur Epithelial Cells Rare Urine Bacteria Rare Hyaline Casts 7 Urine Mucus Rare Blood Type Antibody Screen 10/15/16 10/15/16 10/15/16 22:23 22:23 22:23 WBC RBC Hgb Hct MCV MCH MCHC RDW Plt Count MPV Neutrophils % Lymphocytes % Monocytes % Eosinophils % Basophils % INR PTT (Actin FS) Puncture Site ABG pH ABG pCO2 at Pt Temp ABG pO2 at Pt Temp ABG HCO3 ABG O2 Sat (Measured) ABG O2 Content ABG Base Excess Corwin Test O2 Delivery Device Oxygen Flow Rate Vent Mode Vent Rate Mechanical Rate PEEP Pressure Support Vent Sodium 145 Potassium 3.9 Chloride 98 Carbon Dioxide 38 H Anion Gap 9 BUN 14 D Creatinine 0.4 L D Creat Clearance w eGFR > 60 Random Glucose 241 H D Lactic Acid 4.9 H* Calcium 8.4 L Total Bilirubin 0.3 AST 74 H D ALT 77 D Alkaline Phosphatase 100 Creatine Kinase 38 Troponin I < 0.02 Total Protein 6.0 L Albumin 2.6 L Urine Color Urine Appearance Urine pH Urine Protein Urine Glucose (UA) Urine Ketones Urine Blood Urine Nitrite Urine Bilirubin Urine Urobilinogen Ur Leukocyte Esterase Urine RBC Urine WBC Ur Epithelial Cells Urine Bacteria Hyaline Casts Urine Mucus Blood Type O POSITIVE Antibody Screen Negative 10/15/16 23:03 WBC RBC Hgb Hct MCV MCH MCHC RDW Plt Count MPV Neutrophils % Lymphocytes % Monocytes % Eosinophils % Basophils % INR PTT (Actin FS) Puncture Site Right brachial ABG pH 7.58 H D ABG pCO2 at Pt Temp 38.9 D ABG pO2 at Pt Temp 172.0 H* ABG HCO3 36.3 H ABG O2 Sat (Measured) 99.4 H ABG O2 Content 18.0 ABG Base Excess 12.9 H Corwin Test Positive O2 Delivery Device Mech vent Oxygen Flow Rate 60% Vent Mode A/c Vent Rate 16 Mechanical Rate Yes PEEP 5.0 Pressure Support Vent 450 Sodium Potassium Chloride Carbon Dioxide Anion Gap BUN Creatinine Creat Clearance w eGFR Random Glucose Lactic Acid Calcium Total Bilirubin AST ALT Alkaline Phosphatase Creatine Kinase Troponin I Total Protein Albumin Urine Color Urine Appearance Urine pH Urine Protein Urine Glucose (UA) Urine Ketones Urine Blood Urine Nitrite Urine Bilirubin Urine Urobilinogen Ur Leukocyte Esterase Urine RBC Urine WBC Ur Epithelial Cells Urine Bacteria Hyaline Casts Urine Mucus Blood Type Antibody Screen CXR: L. base Consolidation, Cardiomegaly EKG: NSR 96, LAE Qtc 487 ASSESSMENT/PLAN: Patient is 56 Yo, AA, female with H/O ALS,chronic hypercapnic repiratory failure , HTN, HLD, Hyperthyroidism, goiter, who presented intubated to the ED via the EMS due to respiratory arrest. In the Ed patient had cardiac arrest (V tach) for 5 min, she was resuscitated and stabilized and admitted to the ICU. # s/p Cardiac arrest in ED possibly secondary to hypoxia * TroponinI negative, * trend trop * F/u Echo * F/u cardio consult note * F/u CMP #Acute on chronic respiratory failure likely 2/2 ALS vs Aspiration Pneumonia * CXR * ABG * CBC, CMP * LA 4.3 , repeat LA * Vanco/zosyn empiric coverage # Lactic acidosis, Acute likely 2/2 Cardiac arrest * LA 4.3 * Repeat LA # Pneumonia likely 2/2 aspiration * Start Vanco/Zosyn * Urine AG * sputum culture * CXR * F/U LA elevation mostly 2/2 cardiac arrest * Aspiration precautions # Hyperthyroidism * continue methimazole * F/U TSH * F/U clinically #Hypertension * Hold on home meds * monitor BP q 2 H # recently diagnose Paroxysmal Afib * 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 * * * # F/E/N * NS@ 75 CC /h * Electrolytes WNL * NPO # Dispo * Full code * admit to ICU * CC time 40 min * * Note : day team please call the pharmacy and verify her meds Amlodipine 10 mg and Riluzole for ALS * Patient was discussed with attending and the team. Renan Bradford MD.[email or web address] Visit type - Emergency Visit Emergency Visit: Yes ED Registration Date: 10/15/16 Care time: The patient presented to the Emergency Department on the above date and was hospitalized for further evaluation of their emergent condition. - New Patient This patient is new to me today: Yes Date on this admission: 10/16/16 - Critical Care Critical Care patient: Yes Total Critical Care Time (in minutes): 45 Critical Care Statement: The care of this patient involved high complexity decision making to prevent further life threatening deterioration of the patient 's condition and/or to evalute & treat vital organ system(s) failure or risk of failure.
[2016-10-16] MEDS: SODIUM CHLORIDE 1,000 ML IV SCH ×2 (01:38→21:27)
[2016-10-16] MEDS ORDERED: ACETAMINOPHEN 1000 MG/100 ML VIAL (NON FORMULARY) IVPB PRN (01:48)
[2016-10-16 01:49] LABS: ALLENS TEST POSITIVE; ART PUNCT SITE RIGHT BRACHIAL; ARTERIAL BLD GAS O2 SATURATION 98.9 % (90-98.9); LPM/O2% 40%; MECH. VENT. YES; PT. ON O2? YES; TYPE OF O2 MECH VENT; VT/PRESS 400
[2016-10-16 01:50] LABS: ARTERIAL BLOOD GAS BASE EXCESS 11.4 meq/l (-2-2); ARTERIAL BLOOD GAS pH 7.58 (7.35-7.45); VENT RATE 16
[2016-10-16 06:09] LABS: MCH 30.3 pg (25.7-33.7); MCHC 32.6 g/dl (32.0-36.0); MEAN CELL VOLUME 92.9 fl (80-96); MEAN PLT VOLUME 10.2 fl (7.5-11.1); PLATELET COUNT 187 K/MM3 (134-434); RDW 14.1 % (11.6-15.6); WHITE BLOOD COUNT 10.1 K/mm3 (4.0-10.0)
[2016-10-16 06:39] LABS: INR 1.42 (0.82-1.09); PROTHROMBIN TIME (PATIENT) 15.7 SEC (9.98-11.88)
[2016-10-16 06:42] LABS: ACTIVATED PTT 29.9 SECONDS (26.9-34.4)
[2016-10-16] MEDS ORDERED: INSULIN SLIDING SCALE (NOVOLOG) 1 VIAL SQ SCH (07:00)
[2016-10-16 07:06] LABS: ALBUMIN 2.6 g/dl (3.4-5.0); ANION GAP 7 (8-16); BILIRUBIN,TOTAL 0.6 mg/dL (0.2-1.0); CALCIUM 8.5 mg/dL (8.5-10.1); CO2 34 mmol/L (21-32); CREATININE 0.3 mg/dL (0.55-1.02); GLUCOSE,RANDOM 119 mg/dL (74-106); MAGNESIUM 2.1 mg/dL (1.8-2.4); SGOT/AST 64 U/L (15-37); SGPT/ALT 78 U/L (12-78); TOT PROT 5.9 g/dl (6.4-8.2)
[2016-10-16 07:12] LABS: ALK PHOS 90 U/L (45-117); TROPONIN I 0.03 ng/ml (0.00-0.05)
[2016-10-16 07:20] LABS: PHOSPHOROUS 0.7 mg/dL (2.5-4.9)
[2016-10-16] MEDS ORDERED: KCL 10 MEQ IVPB 100 ML IVPB SCH (07:45)
[2016-10-16] MEDS ORDERED: POTASSIUM CHLORIDE 20 MEQ PREMIX IVPB 100 ML IVPB ONE (08:30)
[2016-10-16] MEDS ORDERED: POTASSIUM CHLORIDE ORAL LIQUID 20 MEQ/15 ML NGT ONE (08:30)
[2016-10-16] MEDS ORDERED: POTASSIUM PHOSPHATE 30 MM in SODIUM CHLORIDE 250 ML IVPB ONE (09:00)
--- NOTE | 2016-10-16 09:45 | CONSULT ---
Consultation: REQUESTING PROVIDER: CONSULT REQUEST: We have been asked to medically evaluate this patient for suspect aspiration PNA/sepsis. Source: Prior notes (patient sedated), attempts made to contact family HISTORY OF PRESENT ILLNESS: 56 yo woman w/ pmh of ALS, pA-fib, chronic hypercapneic respiratory failure, HTN , hyperthyroidism, who was BIBEMS from [place] due to acute respiratory arrest. Of note, pt was recently discharged last week from [facility] for paroxysmal a-Fib w/ RVR, with course notable for persistent SOB and cough, discharged 3 days prior to current admission. Pt was at relative baseline last night around 6PM, and per son, woke up from nap w/ acute MS change, disoriented and confused in severe respiratory distress. Per ICU team, there was suspicion for aspiration event at this time, given clinical condition. EMS was activated and Pt was intubated in the field. In ED, patient experienced a cardiac arrest for 5 minutes, but was stabilized. She was consistently hypotensive, w/ labs notable for elevated lactate 4.9 and CXR w/ suspected retrocardiac consolidation. Received dose of Vanc/zosyn for suspected sepsis secondary to PNA. Per family, pt denies any recent fever, chills, hematuria or hemoptysis. Hx of aspiration events in past given ALS, w/ pt typically endorsing lightheadness, back pain and cough. Chronic constipation 3x/week and UTI 2 months ago. No recent travel. During prior recent admission, suspicion for possible sepsis given 03/28 + blood cultures, however likely due to contaminate from skin kaur. PMHx ALS HTN Hyperthyroidism HLD Goiter PSHx None Allergies NKDA Fam Hx Non-contributory Social Hx No drugs, alcohol or smoking Lives at home REVIEW OF SYSTEMS: (per prior notes) CONSTITUTIONAL: generalized weakness, malaise, loss of appetite Absent: fever, chills, diaphoresis, weight change HEENT: Absent: rhinorrhea, nasal congestion, throat pain, throat swelling, difficulty swallowing, mouth swelling, ear pain, eye pain, visual changes CARDIOVASCULAR: palpitations, lightheadedness Absent: chest pain, syncope, irregular heart rate, peripheral edema RESPIRATORY: cough, shortness of breath, Absent: dyspnea with exertion, orthopnea, wheezing, stridor, hemoptysis GASTROINTESTINAL: Absent: abdominal pain, abdominal distension, nausea, vomiting, diarrhea, constipation, melena, hematochezia GENITOURINARY: Absent: dysuria, frequency, urgency, hesitancy, hematuria, flank pain, genital pain MUSCULOSKELETAL: back pain, Absent: myalgia, arthralgia, joint swelling, neck pain SKIN: Absent: rash, itching, pallor HEMATOLOGIC/IMMUNOLOGIC: Absent: easy bleeding, easy bruising, lymphadenopathy, frequent infections ENDOCRINE: Absent: unexplained weight gain, unexplained weight loss, heat intolerance, cold intolerance NEUROLOGIC: dizziness, mental status changes Absent: headache, focal weakness or paresthesias, unsteady gait, seizure, bladder or bowel incontinence PSYCHIATRIC: Absent: anxiety, depression, suicidal or homicidal ideation, hallucinations. PHYSICAL EXAMINATION Vital Signs - 24 hr 10/16/16 10/16/16 10/16/16 00:38 01:15 02:00 Temperature 99.7 F H 100.6 F H Pulse Rate 87 79 Respiratory 25 H 16 16 Rate Blood Pressure 102/63 96/56 O2 Sat by Pulse 100 Oximetry (%) 10/16/16 10/16/16 10/16/16 03:37 04:00 06:00 Temperature 100.6 F H 100.9 F H Pulse Rate 78 80 Respiratory 16 16 16 Rate Blood Pressure 102/61 94/60 O2 Sat by Pulse Oximetry (%) 10/16/16 06:46 Temperature Pulse Rate Respiratory 16 Rate Blood Pressure O2 Sat by Pulse Oximetry (%) GENERAL: Sedated, intubated. Laying in bed. HEAD: Normal with no signs of trauma. EYES: Pupils constricted, minimally reactive to light. sclera anicteric, conjunctiva clear. No lid lag. EARS, NOSE, THROAT: Ears normal, nares patent, oropharynx clear without exudates. Dried blood on lips. Moist mucous membranes. NECK: supple without lymphadenopathy, JVD, or masses. LUNGS: Anterior chest exam performed. Decreased breath sounds at bases bilaterally. No wheezes, and no crackles. No accessory muscle use. HEART: Regular rate and rhythm, normal S1 and S2 without murmur, rub or gallop. ABDOMEN: Soft, not distended, hypoactive bowel sounds, no masses. No hepatomegaly or splenomegaly. MUSCULOSKELETAL: No bony deformities or tenderness. UPPER EXTREMITIES: 2+ pulses, warm, well-perfused. No cyanosis. No clubbing. Cap refill <2 seconds. No peripheral edema. LOWER EXTREMITIES: 2+ pulses, warm, well-perfused. No peripheral edema. No decubitus ulcers noted. NEUROLOGICAL: Cranial nerves II-XII not evaluated. Sedated. SKIN: Warm, dry, normal turgor, no rashes or lesions noted. Laboratory Results - last 24 hr CBC, BMP 10/16/16 05:10 10/16/16 05:10 10/16/16 10/16/16 10/16/16 01:20 01:30 01:32 WBC RBC Hgb Hct MCV MCH MCHC RDW Plt Count MPV INR PTT (Actin FS) Puncture Site Right brachial ABG pH 7.58 H ABG pCO2 at Pt Temp 36.9 ABG pO2 at Pt Temp 110.0 H D ABG HCO3 34.0 H ABG O2 Sat (Measured) 98.9 ABG O2 Content 17.6 ABG Base Excess 11.4 H Corwin Test Positive O2 Delivery Device Mech vent Oxygen Flow Rate 40% Vent Mode A/c Vent Rate 16 Mechanical Rate Yes PEEP 5.0 Pressure Support Vent 400 Sodium Potassium Chloride Carbon Dioxide Anion Gap BUN Creatinine Creat Clearance w eGFR Random Glucose 158 H D Lactic Acid 3.4 H* Calcium Phosphorus Magnesium Total Bilirubin AST ALT Alkaline Phosphatase Creatine Kinase Troponin I B-Natriuretic Peptide Total Protein Albumin 10/16/16 10/16/16 10/16/16 05:10 05:10 05:10 WBC 10.1 H RBC 4.02 Hgb 12.2 Hct 37.4 MCV 92.9 MCH 30.3 MCHC 32.6 RDW 14.1 Plt Count 187 MPV 10.2 INR 1.42 H PTT (Actin FS) 29.9 Puncture Site ABG pH ABG pCO2 at Pt Temp ABG pO2 at Pt Temp ABG HCO3 ABG O2 Sat (Measured) ABG O2 Content ABG Base Excess Corwin Test O2 Delivery Device Oxygen Flow Rate Vent Mode Vent Rate Mechanical Rate PEEP Pressure Support Vent Sodium 143 Potassium 2.8 L* D Chloride 102 Carbon Dioxide 34 H Anion Gap 7 L BUN 13 Creatinine 0.3 L D Creat Clearance w eGFR > 60 Random Glucose 119 H D Lactic Acid Calcium 8.5 Phosphorus 0.7 L* Magnesium 2.1 Total Bilirubin 0.6 D AST 64 H ALT 78 Alkaline Phosphatase 90 Creatine Kinase 36 Troponin I 0.03 B-Natriuretic Peptide 835.38 H Total Protein 5.9 L Albumin 2.6 L Microbiology 10/16/16 01:35 Nasopharyngeal Swab Respiratory Virus (PCR) - Preliminary Blood cx pending Urine cx pending Active Medications Generic Name Dose Route Start Last Admin Trade Name Clement PRN Reason Stop Dose Admin Acetaminophen 1,000 mg 10/16/16 01:48 Ofirmev Injection - IVPB 10/16/16 19:49 Q6H PRN FEVER OR PAIN Apixaban 5 mg 10/16/16 10:00 Eliquis - PO DAILY SILVIA Chlorhexidine Gluconate 1 applic 10/16/16 22:00 Hibiclens For Decolonization - TP HS SILVIA Midazolam HCl 100 mg/ Sodium 100 mls @ 2 mls/hr 10/15/16 22:15 10/16/16 00:45 Chloride IVPB 4 mg/hr TITR SILVIA Titration Protocol 2 MG/HR Sodium Chloride 1,000 mls @ 75 mls/hr 10/16/16 01:00 10/16/16 01:38 Normal Saline - IV 75 mls/hr ASDIR SILVIA Administration Vancomycin HCl 1,000 mg/ 250 mls @ 200 mls/hr 10/16/16 14:00 Dextrose IVPB Q12H SILVIA Famotidine/Sodium Chloride 50 mls @ 100 mls/hr 10/16/16 10:00 Pepcid 20 Mg Premixed Ivpb - IVPB BID SILVIA Potassium Phosphate 30 mm/ 260 mls @ 52 mls/hr 10/16/16 09:00 Sodium Chloride IVPB 10/16/16 13:59 ONCE ONE Methimazole 10 mg 10/16/16 10:00 Tapazole - NGT DAILY SILVIA Mirtazapine 15 mg 10/16/16 10:00 Remeron - NGT DAILY SILVIA Mupirocin 1 applic 10/16/16 10:00 Bactroban Ointment (For Decolonization) - NS 10/21/16 09:59 BID SILVIA Piperacillin Sod/Tazobactam Sod 3.375 gm 10/16/16 10:00 Zosyn 3.375gm Ivpb (Pre-Docked) IVPB 10/23/16 09:59 Q8H-IV SILVIA Protocol ASSESSMENT/PLAN: Assessment: 56 yo woman w/ pmh of ALS, pA-fib, chronic hypercapneic respiratory failure, HTN , hyperthyroidism, who was BIBEMS from AL due to acute respiratory arrest. PE notable for febrile status, no decubitus ulcers or rashes, normal lung exam and hypotension on presentation. Labs notable for borderline WBC count, hypoK, elevated lactate. Imaging notable for suspected retrocardiac consolidation and L pleural effusion. Given patient's neurological status, recent worsening respiratory status on d/c last week, elevated lactate and fever and respiratory arrest, differential includes HCAP vs. aspiration PNA vs. respiratory arrest secondary to worsening neurorespiratory status. Plan to cover for HCAP w/ Vanc/ Zosyn and continue to monitor infectious status. Plan: Suspected PNA - Abx coverage for HCAP - Vanc 1g IV BID - Zosyn 4.5g IV Q8H - f/u sputum, blood, urine cx's - f/u urinary legionella, pneumococcal Ag - Serial CBCs - Trend fever curve, WBCs - Remove/exchange central line in L femoral vein Roman Mena MD, PGY1 Plan discussed with attending, Dr. Leone Dispo: We will continue to follow the patient. Thank you for this consultative opportunity. Problem List - Problems (1) ALS (amyotrophic lateral sclerosis) Code(s): G12.21 - AMYOTROPHIC LATERAL SCLEROSIS (2) Respiratory failure Code(s): J96.90 - RESPIRATORY FAILURE, UNSP, UNSP W HYPOXIA OR HYPERCAPNIA Qualifiers: Chronicity: acute Respiratory failure complication: hypoxia and hypercapnia Qualified Code(s): J96.01 - Acute respiratory failure with hypoxia (3) Pneumonia Code(s): J18.9 - PNEUMONIA, UNSPECIFIED ORGANISM Qualifiers: Pneumonia type: due to unspecified organism Laterality: left Lung location: upper lobe of lung Qualified Code(s): J18.1 - Lobar pneumonia, unspecified organism Visit type - Emergency Visit Emergency Visit: No - New Patient This patient is new to me today: Yes Date on this admission: 10/16/16 - Critical Care Critical Care patient: No
[2016-10-16] MEDS ORDERED: PT OWN MED DRAWER 7, Y5N ONE (09:49)
[2016-10-16] MEDS ORDERED: APIXABAN 5 MG TABLET PO SCH (10:00)
[2016-10-16] MEDS ORDERED: MIRTAZAPINE 15 MG TABLET (FP) PO SCH (10:00)
[2016-10-16] MEDS: FAMOTIDINE 20 MG/50 ML IVPB 50 ML IVPB SCH ×2 (10:04→21:27)
[2016-10-16] MEDS: MIRTAZAPINE 15 MG TABLET (FP) NGT SCH (10:04)
--- NOTE | 2016-10-16 10:42 | PN ---
Teaching Attending Note Name of Resident: Roman Mena ATTENDING PHYSICIAN STATEMENT I saw and evaluated the patient. I reviewed the resident's note and discussed the case with the resident. I agree with the resident's findings and plan as documented. SUBJECTIVE: intubated and sedated chart reviewed discussed in detail with nursing staff and housestaff recent admission for afib with RVR0 10/09 to 10/12 discharged to SNF she has been bed bound since January she was intubated in the field by EMS and arrested in the ED- OBJECTIVE: Vital Signs Period Temp Pulse Resp BP Sys/Hatch Pulse Ox Last 24 Hr 99 F-100.9 F 78-88 16-25 62-102/44-63 100-100 cor-rrr lungs decreased bs at bases abd soft,nt ext no edema no skin breakdown no phlebitis left femoral line CBC, BMP 10/16/16 05:10 10/16/16 05:10 Microbiology 10/16/16 01:35 Nasopharyngeal Swab Respiratory Virus (PCR) - Preliminary cxray question of LLL infiltrate ASSESSMENT AND PLAN: cardiac arrest respiratory failure ALS fevers cannot r/o pneumonia, including aspiration and HAP recent admission to the hospital afib plan cultures blood and sputum, urinary antigens vancomycin and zosyn-vanco trough before fourth dose overall prognosis poor given extent of neurologic disease 40 minutes spent in the care of this critically ill ICU patient
[2016-10-16] MEDS: PIPERACILLIN/TAZOB 4.5 GM/100 ML PRE-DOCKED IVPB SCH ×2 (10:52→17:18)
[2016-10-16] MEDS: MUPIROCIN 2% TOPICAL OINTMENT FOR DECOLONIZATION NS SCH ×2 (10:53→22:13)
[2016-10-16] MEDS: METHIMAZOLE 10 MG TABLET (FP) NGT SCH (12:27)
[2016-10-16] MEDS: APIXABAN 5 MG TABLET PO SCH (12:27)
[2016-10-16] MEDS: CHLORHEXIDINE GLUCONATE 0.12% 15ML CUP MM SCH ×2 (12:29→21:27)
[2016-10-16] MEDS ORDERED: DEXTROSE 5%-WATER - 1,000 ML IV SCH (12:30)
--- NOTE | 2016-10-16 13:36 | PN ---
Teaching Attending Note Name of Resident: Manjula Delvalle ATTENDING PHYSICIAN STATEMENT I saw and evaluated the patient. I reviewed the resident's note and discussed the case with the resident. I agree with the resident's findings and plan as documented. SUBJECTIVE:intubated/sedated OBJECTIVE: Last Vital Signs Temp Pulse Resp BP Pulse Ox 100.8 F H 86 16 102/52 100 10/16/16 12:00 10/16/16 12:00 10/16/16 10:12 10/16/16 12:00 10/16/16 00:38 General sedated CV S1 S2 RRR no murmur/rub/gallop lungs course breath sounds diffusely. no crackles or wheezing anteriorly Abdomen soft NT/ND Extremities no pedal edema ASSESSMENT AND PLAN: 56yo F with PMH ALS, chronic hypercapnic respiratory failure, HTN, hyperthyroid , afib and dyslipidemia brought into the ER in acute respiratory distress and intubated in the field with cardiac arrest in the ER 1. s/p cardiac arrest- likely due to hypoxia, ve electrolyte abnormality however can not r/o cardiac etiology as newly dx afib. as per note, Vtach noted on the monitor. ROSC after 5 munutes. cardiac enzymes neg x2. check echo 2. Acute on Chronic hypercapnic respiratory failure- likely due to progression of ALS vs HCAP. cont full vent support for now. may need to re-tract ETT slightly. neuro consulted for management of ALS. started on Zosyn/Vanco. ID consulted. vent management per pulmonary. on versed, riluzole 3. Lactic acidosis- likely due to chest compresssions. trend 4. Hypokalemia- Kcl 20meq. repeat today 5. Hypophosphatemia- Kphos. repeat after 6. Hyperthyroidism- TSH WNL. cont methimazole 7. HTN- currently normotensive. hold oral agents 8. Afib- currently rate controlled. on eliquis 9. DVT ppx- eliquis 10. cont MICU monitoring CC TIME 45 minutes. The care of this patient involved high complexity decision making to prevent further life threatening deterioration of the patient's condition and/or to evalute & treat vital organ system(s) failure or risk of failure.
[2016-10-16] MEDS: VANCOMYCIN 1 GRAM (PRE-DOCKED) 250 ML IVPB SCH (13:42)
--- NOTE | 2016-10-16 14:38 | CONSULT ---
Consultation: REQUESTING PROVIDER: Dr. Sen CONSULT REQUEST: We have been asked to medically evaluate this patient for PULM/ CRIT CARE. HISTORY OF PRESENT ILLNESS: 56 y/o F with PMH of ALS, chronic hypercapnic resp failure, HTN, hyperthyroidism presented to ER via EMS from [place] for SOB. Pt received intubated and history obtained from previous charts/notes. Pt recently discharged from [facility] to [place] for further management. Pt noted to be gasping for air by family members and EMS called. Pt intubated enroute in ambulance. In ER pt went into cardiac arrest, CPR performed with ROSC and admitted to ICU. REVIEW OF SYSTEMS: Pt intubated, ROS unable to be performed. PHYSICAL EXAMINATION Vital Signs Temperature 100.8 F H 10/16/16 12:00 Pulse Rate 86 10/16/16 12:00 Respiratory Rate 16 10/16/16 10:12 Blood Pressure 102/52 10/16/16 12:00 O2 Sat by Pulse Oximetry (%) 100 10/16/16 00:38 GENERAL:Sedated and intubated. HEAD: Normal with no signs of trauma. EYES: Pupils equal, round and reactive to light EARS, NOSE, THROAT: Ears normal, nares patent LUNGS: Auscultated anteriorly - CTA B/L HEART: Regular rate and rhythm, normal S1 and S2 ABDOMEN: Soft, nontender, not distended, normoactive bowel sounds LOWER EXTREMITIES: 2+ pulses, warm, no peripheral edema. NEUROLOGICAL: Sedated. PSYCHIATRIC: Sedated. SKIN: dry Laboratory Results - last 24 hr 10/16/16 10/16/16 10/16/16 01:20 01:30 01:32 WBC RBC Hgb Hct MCV MCH MCHC RDW Plt Count MPV INR PTT (Actin FS) Puncture Site Right brachial ABG pH 7.58 H ABG pCO2 at Pt Temp 36.9 ABG pO2 at Pt Temp 110.0 H D ABG HCO3 34.0 H ABG O2 Sat (Measured) 98.9 ABG O2 Content 17.6 ABG Base Excess 11.4 H Corwin Test Positive O2 Delivery Device Mech vent Oxygen Flow Rate 40% Vent Mode A/c Vent Rate 16 Mechanical Rate Yes PEEP 5.0 Pressure Support Vent 400 Sodium Potassium Chloride Carbon Dioxide Anion Gap BUN Creatinine Creat Clearance w eGFR POC Glucometer Random Glucose 158 H D Lactic Acid 3.4 H* Calcium Phosphorus Magnesium Total Bilirubin AST ALT Alkaline Phosphatase Creatine Kinase Troponin I B-Natriuretic Peptide Total Protein Albumin TSH 10/16/16 10/16/16 10/16/16 05:10 05:10 05:10 WBC 10.1 H RBC 4.02 Hgb 12.2 Hct 37.4 MCV 92.9 MCH 30.3 MCHC 32.6 RDW 14.1 Plt Count 187 MPV 10.2 INR 1.42 H PTT (Actin FS) 29.9 Puncture Site ABG pH ABG pCO2 at Pt Temp ABG pO2 at Pt Temp ABG HCO3 ABG O2 Sat (Measured) ABG O2 Content ABG Base Excess Corwin Test O2 Delivery Device Oxygen Flow Rate Vent Mode Vent Rate Mechanical Rate PEEP Pressure Support Vent Sodium 143 Potassium 2.8 L* D Chloride 102 Carbon Dioxide 34 H Anion Gap 7 L BUN 13 Creatinine 0.3 L D Creat Clearance w eGFR > 60 POC Glucometer Random Glucose 119 H D Lactic Acid Calcium 8.5 Phosphorus 0.7 L* Magnesium 2.1 Total Bilirubin 0.6 D AST 64 H ALT 78 Alkaline Phosphatase 90 Creatine Kinase 36 Troponin I 0.03 B-Natriuretic Peptide 835.38 H Total Protein 5.9 L Albumin 2.6 L TSH 2.30 D 10/16/16 10/16/16 10:20 12:49 WBC RBC Hgb Hct MCV MCH MCHC RDW Plt Count MPV INR PTT (Actin FS) Puncture Site ABG pH ABG pCO2 at Pt Temp ABG pO2 at Pt Temp ABG HCO3 ABG O2 Sat (Measured) ABG O2 Content ABG Base Excess Corwin Test O2 Delivery Device Oxygen Flow Rate Vent Mode Vent Rate Mechanical Rate PEEP Pressure Support Vent Sodium Potassium Chloride Carbon Dioxide Anion Gap BUN Creatinine Creat Clearance w eGFR POC Glucometer 99.21134 Random Glucose Lactic Acid 1.7 Calcium Phosphorus Magnesium Total Bilirubin AST ALT Alkaline Phosphatase Creatine Kinase Troponin I B-Natriuretic Peptide Total Protein Albumin TSH Imaging CXR 24: L retrocardiac infiltrate/atelectasis w/pleural effusin Microbiology 10/16/16 01:35 Nasopharyngeal Swab Respiratory Virus (PCR) - Preliminary 10/15/16 Blood Culture Pending 10/15/16 Urine culutre pending Active Medications Generic Name Dose Route Start Last Admin Trade Name Freq PRN Reason Stop Dose Admin Acetaminophen 1,000 mg 10/16/16 01:48 Ofirmev Injection - IVPB 10/16/16 19:49 Q6H PRN FEVER OR PAIN Apixaban 5 mg 10/16/16 10:00 10/16/16 12:27 Eliquis - PO 5 mg DAILY SILVIA Administration Chlorhexidine Gluconate 1 applic 10/16/16 22:00 Hibiclens For Decolonization - TP HS SILVIA Chlorhexidine Gluconate 15 ml 10/16/16 12:15 10/16/16 12:29 Peridex - MM 15 ml BID SILVIA Administration Midazolam HCl 100 mg/ Sodium 100 mls @ 2 mls/hr 10/15/16 22:15 10/16/16 00:45 Chloride IVPB 4 mg/hr TITR SILVIA Titration Protocol 2 MG/HR Sodium Chloride 1,000 mls @ 75 mls/hr 10/16/16 01:00 10/16/16 01:38 Normal Saline - IV 75 mls/hr ASDIR SILVIA Administration Vancomycin HCl 250 mls @ 166.667 mls/hr 10/16/16 14:00 10/16/16 13:42 Vancomycin (Pre-Docked) IVPB 166.667 mls/hr Q12H SILVIA Administration Famotidine/Sodium Chloride 50 mls @ 100 mls/hr 10/16/16 10:00 10/16/16 10:04 Pepcid 20 Mg Premixed Ivpb - IVPB 100 mls/hr BID SILVIA Administration Methimazole 10 mg 10/16/16 10:00 10/16/16 12:27 Tapazole - NGT 10 mg DAILY SILVIA Administration Mirtazapine 15 mg 10/16/16 10:00 10/16/16 10:04 Remeron - NGT 15 mg DAILY SILVIA Administration Mupirocin 1 applic 10/16/16 10:00 10/16/16 10:53 Bactroban Ointment (For Decolonization) - NS 10/21/16 09:59 1 applic BID SILVIA Administration Piperacillin Sod/Tazobactam Sod 4.5 gm 10/16/16 10:30 10/16/16 10:52 Zosyn 4.5gm Ivpb (Pre-Docked) IVPB 4.5 gm Q8H-IV SILVIA Administration ASSESSMENT/PLAN: 56 y/o F with PMH of ALS, chronic hypercapnic resp failure, HTN, hyperthyroidism presented to ER via EMS from [place] for SOB. Admitted to ICU with respiratory failure requiring intubation s/p cardiac arrest with ROSC in ER. -Neuro -Sedated and intubated (on versed) -Sedation vacations in AM -ALS -Neuro on board -Pulm -Acute respiratory failure secondary to possible aspiration pna vs progressive ALS -c/w vanco and zosyn as per ID recommendations, f/u trough for vanco with 4th dose -f/u cultures, UAg for PNA, respiratory virus panel -lactic acid now normalized -Intubated on vent -wean trials -Ofirmev 1g IV q6h PRN for fevers -ABG in AM -ID on board -C/V -S/P Cardiac arrest on 10/16/16 in ER w/ROSC -trops neg x2 -Paroxysmal A-fib -c/w eliquis 5mg NGT daily -Endocrine -Hyperthyroidism -TSH 2.3, c/w methimazole 10 mg NGT -Psych -MDD -c/w remeron 15 mg NGT qd -Prophylaxis -DVT: eliquis 5 mg NGT daily -GI: Pepcid IV 20 mg BID -FEN -NS @ 75 ml/hr -K+ and Phos repleted, monitor lytes -NPO for now -Dispo: -Continue to monitor in the ICU Dispo: We will continue to follow the patient. Thank you for this consultative opportunity. Problem List - Problems (1) Pneumonia Code(s): J18.9 - PNEUMONIA, UNSPECIFIED ORGANISM Qualifiers: Pneumonia type: due to unspecified organism Laterality: left Lung location: upper lobe of lung Qualified Code(s): J18.1 - Lobar pneumonia, unspecified organism (2) ALS (amyotrophic lateral sclerosis) Code(s): G12.21 - AMYOTROPHIC LATERAL SCLEROSIS (3) Hyperthyroidism Code(s): E05.90 - THYROTOXICOSIS, UNSP WITHOUT THYROTOXIC CRISIS OR STORM (4) Hypokalemia Code(s): E87.6 - HYPOKALEMIA (5) Paroxysmal atrial fibrillation Code(s): I48.0 - PAROXYSMAL ATRIAL FIBRILLATION (6) Respiratory failure Code(s): J96.90 - RESPIRATORY FAILURE, UNSP, UNSP W HYPOXIA OR HYPERCAPNIA Qualifiers: Chronicity: acute Respiratory failure complication: hypoxia and hypercapnia Qualified Code(s): J96.01 - Acute respiratory failure with hypoxia Visit type - Emergency Visit Emergency Visit: Yes ED Registration Date: 10/15/16 Care time: The patient presented to the Emergency Department on the above date and was hospitalized for further evaluation of their emergent condition. - New Patient This patient is new to me today: Yes Date on this admission: 10/16/16 - Critical Care Critical Care patient: Yes Total Critical Care Time (in minutes): 35 Critical Care Statement: The care of this patient involved high complexity decision making to prevent further life threatening deterioration of the patient 's condition and/or to evalute & treat vital organ system(s) failure or risk of failure.
--- NOTE | 2016-10-16 16:02 | PN ---
Physical Exam: SUBJECTIVE: Patient seen and examined at bedside. Pt on vent currently and sedated on versed. Settings: TV 400, PEEP5. OBJECTIVE: Vital Signs Period Temp Pulse Resp BP Sys/Hatch Pulse Ox Last 24 Hr 99.7 F-100.9 F 78-95 13-25 94-147/52-79 100-100 GENERAL: The patient is sedated, intubated HEAD: Normal with no signs of trauma. EYES: PERRL, extraocular movements unable to be determined NECK: Trachea midline LUNGS: Breath sounds equal, clear to auscultation bilaterally. Did not appreciate wheezes, crackles or accessory muscle use. HEART: Regular rate and rhythm, S1, S2 without murmur, rub or gallop. ABDOMEN: Soft, nontender, nondistended, normoactive bowel sounds, no guarding, no rebound, no hepatosplenomegaly, no masses. EXTREMITIES: 2+ posterior tibial pulses, no edema NEUROLOGICAL: difficult to assess as pt is sedated Laboratory Results - last 24 hr 10/16/16 10/16/16 10/16/16 01:20 01:30 01:32 WBC RBC Hgb Hct MCV MCH MCHC RDW Plt Count MPV INR PTT (Actin FS) Puncture Site Right brachial ABG pH 7.58 H ABG pCO2 at Pt Temp 36.9 ABG pO2 at Pt Temp 110.0 H D ABG HCO3 34.0 H ABG O2 Sat (Measured) 98.9 ABG O2 Content 17.6 ABG Base Excess 11.4 H Corwin Test Positive O2 Delivery Device Mech vent Oxygen Flow Rate 40% Vent Mode A/c Vent Rate 16 Mechanical Rate Yes PEEP 5.0 Pressure Support Vent 400 Sodium Potassium Chloride Carbon Dioxide Anion Gap BUN Creatinine Creat Clearance w eGFR POC Glucometer Random Glucose 158 H D Lactic Acid 3.4 H* Calcium Phosphorus Magnesium Total Bilirubin AST ALT Alkaline Phosphatase Creatine Kinase Troponin I B-Natriuretic Peptide Total Protein Albumin TSH 10/16/16 10/16/16 10/16/16 05:10 05:10 05:10 WBC 10.1 H RBC 4.02 Hgb 12.2 Hct 37.4 MCV 92.9 MCH 30.3 MCHC 32.6 RDW 14.1 Plt Count 187 MPV 10.2 INR 1.42 H PTT (Actin FS) 29.9 Puncture Site ABG pH ABG pCO2 at Pt Temp ABG pO2 at Pt Temp ABG HCO3 ABG O2 Sat (Measured) ABG O2 Content ABG Base Excess Corwin Test O2 Delivery Device Oxygen Flow Rate Vent Mode Vent Rate Mechanical Rate PEEP Pressure Support Vent Sodium 143 Potassium 2.8 L* D Chloride 102 Carbon Dioxide 34 H Anion Gap 7 L BUN 13 Creatinine 0.3 L D Creat Clearance w eGFR > 60 POC Glucometer Random Glucose 119 H D Lactic Acid Calcium 8.5 Phosphorus 0.7 L* Magnesium 2.1 Total Bilirubin 0.6 D AST 64 H ALT 78 Alkaline Phosphatase 90 Creatine Kinase 36 Troponin I 0.03 B-Natriuretic Peptide 835.38 H Total Protein 5.9 L Albumin 2.6 L TSH 2.30 D 10/16/16 10/16/16 10:20 12:49 WBC RBC Hgb Hct MCV MCH MCHC RDW Plt Count MPV INR PTT (Actin FS) Puncture Site ABG pH ABG pCO2 at Pt Temp ABG pO2 at Pt Temp ABG HCO3 ABG O2 Sat (Measured) ABG O2 Content ABG Base Excess Corwin Test O2 Delivery Device Oxygen Flow Rate Vent Mode Vent Rate Mechanical Rate PEEP Pressure Support Vent Sodium Potassium Chloride Carbon Dioxide Anion Gap BUN Creatinine Creat Clearance w eGFR POC Glucometer 99.42633 Random Glucose Lactic Acid 1.7 Calcium Phosphorus Magnesium Total Bilirubin AST ALT Alkaline Phosphatase Creatine Kinase Troponin I B-Natriuretic Peptide Total Protein Albumin TSH Active Medications Generic Name Dose Route Start Last Admin Trade Name Freq PRN Reason Stop Dose Admin Acetaminophen 1,000 mg 10/16/16 01:48 Ofirmev Injection - IVPB 10/16/16 19:49 Q6H PRN FEVER OR PAIN Apixaban 5 mg 10/16/16 10:00 10/16/16 12:27 Eliquis - PO 5 mg DAILY SILVIA Administration Chlorhexidine Gluconate 1 applic 10/16/16 22:00 Hibiclens For Decolonization - TP HS SILVIA Chlorhexidine Gluconate 15 ml 10/16/16 12:15 10/16/16 12:29 Peridex - MM 15 ml BID SILVIA Administration Midazolam HCl 100 mg/ Sodium 100 mls @ 2 mls/hr 10/15/16 22:15 10/16/16 00:45 Chloride IVPB 4 mg/hr TITR SILVIA Titration Protocol 2 MG/HR Sodium Chloride 1,000 mls @ 75 mls/hr 10/16/16 01:00 10/16/16 01:38 Normal Saline - IV 75 mls/hr ASDIR SILVIA Administration Vancomycin HCl 250 mls @ 166.667 mls/hr 10/16/16 14:00 10/16/16 13:42 Vancomycin (Pre-Docked) IVPB 166.667 mls/hr Q12H SILVIA Administration Famotidine/Sodium Chloride 50 mls @ 100 mls/hr 10/16/16 10:00 10/16/16 10:04 Pepcid 20 Mg Premixed Ivpb - IVPB 100 mls/hr BID SILVIA Administration Methimazole 10 mg 10/16/16 10:00 10/16/16 12:27 Tapazole - NGT 10 mg DAILY SILVIA Administration Mirtazapine 15 mg 10/16/16 10:00 10/16/16 10:04 Remeron - NGT 15 mg DAILY SILVIA Administration Mupirocin 1 applic 10/16/16 10:00 10/16/16 10:53 Bactroban Ointment (For Decolonization) - NS 10/21/16 09:59 1 applic BID SILVIA Administration Piperacillin Sod/Tazobactam Sod 4.5 gm 10/16/16 10:30 10/16/16 10:52 Zosyn 4.5gm Ivpb (Pre-Docked) IVPB 4.5 gm Q8H-IV SILVIA Administration ASSESSMENT/PLAN: 56 yr old F with PMH ALS, chronic hypercapnic resp failure, HTN, HLD, hyperthyroidism, goiter, intubated to ED via EMS due to resp arrest. In ED, pt had cardiac arrest (V tach) for 5 min, was resuscitated and stabilized, admitted to ICU. 1. s/p Cardiac arrest in ED possibly secondary to hypoxia -Troponins negative x2 -F/u Echo -F/u cardio consult note -F/u BMP, Mg, Phosph 2. Lactic acidosis secondary to cardiac arrest -Lactic acid trending down, Today 1.7 3. Hypokalemia, Hypophosphatemia -K+ and Phosph repleted using Kphosph 30mm in NS, KCl 20 mEq given -F/u BMP, Mg, Phosph in AM 4. Acute on chronic respiratory failure secondary to possible aspiration pneumonia vs. ALS -Neurology on case -Spoke to Dr. Carr- pt has not been on Riluzole since 2016, and should not be on it now as it is non-formulary -Pt intubated, on Versed -Ofirmev 1000 mg IVPB q6 PRN for pain -Continue vanco 250ml q12 and zosyn 4.5 grams IVPB q8, follow vanco trough -F/u cultures, respiratory virus panel -F/u ABG 5. Paroxysmal afib -Continue eliquis 5mg NGT daily 6. Hyperthyroidism -Continue methimazole 7. Major Depressive Disorder -Continue remeron 8. Palliative care -spoke to family, they want her to be on vent for 2 more days before palliative is consulted F/E/N NS 75 mls/hr Monitor electrolytes NPO Visit type - Emergency Visit Emergency Visit: No - New Patient This patient is new to me today: Yes Date on this admission: 10/16/16 - Critical Care Critical Care patient: Yes Total Critical Care Time (in minutes): 12
[2016-10-16 19:52] LABS: ANION GAP 7 (8-16); CALCIUM 8.5 mg/dL (8.5-10.1); CO2 34 mmol/L (21-32); CREATININE 0.4 mg/dL (0.55-1.02); GLUCOSE,RANDOM 102 mg/dL (74-106); PHOSPHOROUS 3.7 mg/dL (2.5-4.9)
--- NOTE | 2016-10-16 20:26 | EKG ---
Test Reason : Blood Pressure : / mmHG Vent. Rate : 096 BPM Atrial Rate : 096 BPM P-R Int : 124 ms QRS Dur : 068 ms QT Int : 386 ms P-R-T Axes : 074 023 065 degrees QTc Int : 487 ms POOR DATA QUALITY, INTERPRETATION MAY BE ADVERSELY AFFECTED NORMAL SINUS RHYTHM POSSIBLE LEFT ATRIAL ENLARGEMENT NONSPECIFIC ST AND T WAVE ABNORMALITY ABNORMAL ECG WHEN COMPARED WITH ECG OF 09-OCT-2016 08:37, SINUS RHYTHM HAS REPLACED ATRIAL FIBRILLATION VENT. RATE HAS DECREASED BY 59 BPM T WAVE INVERSION NO LONGER EVIDENT IN INFERIOR LEADS T WAVE INVERSION NO LONGER EVIDENT IN LATERAL LEADS NONSPECIFIC ST DEPRESSION CORRELATE CLINICALLY Confirmed by MAJO BURTON MD ([id number] on 10/16/2016 8:26:10 PM Referred By: Confirmed By:MAJO BURTON MD
[2016-10-16] MEDS ORDERED: LIDOCAINE VISCOUS 2% ORAL/TOP 100 ML BOTTLE MM ONE (20:35)
[2016-10-16] MEDS ORDERED: LIDOCAINE HCL 2% JELLY (30 ML/TUBE) TP PRN (20:38)
[2016-10-16] MEDS: CHLORHEXIDINE GLUCONATE 4% CLEANSER FOR DECOLONIZATION TP SCH (21:27)
[2016-10-16] MEDS: MIDAZOLAM 100 MG in SODIUM CHLORIDE 100 ML IVPB SCH (22:15)
[2016-10-17] MEDS: VANCOMYCIN 1 GRAM (PRE-DOCKED) 250 ML IVPB SCH ×2 (01:12→15:00)
[2016-10-17] MEDS: SODIUM CHLORIDE 1,000 ML IV SCH (01:13)
[2016-10-17] MEDS: PIPERACILLIN/TAZOB 4.5 GM/100 ML PRE-DOCKED IVPB SCH ×3 (01:14→20:10)
[2016-10-17 06:38] LABS: BASOPHIL 0.4 % (0-2.0); EOSINOPHIL 1.1 % (0-4.5); MCH 30.3 pg (25.7-33.7); MCHC 33.1 g/dl (32.0-36.0); MEAN CELL VOLUME 91.8 fl (80-96); MEAN PLT VOLUME 8.9 fl (7.5-11.1); NEUTROPHILS 80.9 % (42.8-82.8); PLATELET COUNT 156 K/MM3 (134-434); RDW 15.1 % (11.6-15.6); WHITE BLOOD COUNT 12.8 K/mm3 (4.0-10.0)
[2016-10-17 07:05] LABS: ALBUMIN 2.6 g/dl (3.4-5.0); ANION GAP 8 (8-16); CALCIUM 8.6 mg/dL (8.5-10.1); CO2 35 mmol/L (21-32); CREATININE 0.6 mg/dL (0.55-1.02); GLUCOSE,RANDOM 88 mg/dL (74-106); MAGNESIUM 2.1 mg/dL (1.8-2.4); PHOSPHOROUS 3.4 mg/dL (2.5-4.9); SGOT/AST 44 U/L (15-37); SGPT/ALT 63 U/L (12-78)
[2016-10-17 07:07] LABS: ALK PHOS 97 U/L (45-117); BILIRUBIN,TOTAL 0.9 mg/dL (0.2-1.0); TOT PROT 5.8 g/dl (6.4-8.2)
[2016-10-17 07:12] LABS: INR 1.32 (0.82-1.09); PROTHROMBIN TIME (PATIENT) 14.6 SEC (9.98-11.88)
--- NOTE | 2016-10-17 07:22 | PN ---
Progress Note, Physician Chief Complaint: ID Empiric therapy Vancomycin and Pip Tazo day 1 Rx Remains intubated Some low grade temps noted earlier - Current Medication List Current Medications: Active Medications Apixaban (Eliquis -) 5 mg PO DAILY [facility] Last Admin: 10/16/16 12:27 Dose: 5 mg Chlorhexidine Gluconate (Hibiclens For Decolonization -) 1 applic TP HS [facility] Last Admin: 10/16/16 21:27 Dose: 1 applic Chlorhexidine Gluconate (Peridex -) 15 ml MM BID [facility] Last Admin: 10/16/16 21:27 Dose: 15 ml Fentanyl (Sublimaze Injection -) 25 mcg IVPUSH Q1H PRN PRN Reason: PAIN LEVEL 1-5 Stop: 10/17/16 21:59 Last Admin: 10/16/16 21:05 Dose: 25 mcg Midazolam HCl 100 mg/ Sodium (Chloride) 100 mls @ 2 mls/hr IVPB TITR SILVIA; 2 MG/ HR PRN Reason: Protocol Last Admin: 10/16/16 22:15 Dose: 4 mls/hr Sodium Chloride (Normal Saline -) 1,000 mls @ 75 mls/hr IV ASDIR [facility] Last Admin: 10/17/16 01:13 Dose: 75 mls/hr Vancomycin HCl (Vancomycin (Pre-Docked)) 250 mls @ 166.667 mls/hr IVPB Q12H [facility] Last Admin: 10/17/16 01:12 Dose: 166.667 mls/hr Famotidine/Sodium Chloride (Pepcid 20 Mg Premixed Ivpb -) 50 mls @ 100 mls/hr IVPB BID [facility] Last Admin: 10/16/16 21:27 Dose: 100 mls/hr Lidocaine HCl (Xylocaine 2% Jelly) 1 applic TP Q4H PRN PRN Reason: PAIN Last Admin: 10/16/16 20:51 Dose: 1 applic Methimazole (Tapazole -) 10 mg NGT DAILY [facility] Last Admin: 10/16/16 12:27 Dose: 10 mg Mirtazapine (Remeron -) 15 mg NGT DAILY [facility] Last Admin: 10/16/16 10:04 Dose: 15 mg Mupirocin (Bactroban Ointment (For Decolonization) -) 1 applic NS BID [facility] Stop: 10/21/16 09:59 Last Admin: 10/16/16 22:13 Dose: 1 applic Piperacillin Sod/Tazobactam Sod (Zosyn 4.5gm Ivpb (Pre-Docked)) 4.5 gm IVPB Q8H -IV SILVIA Last Admin: 10/17/16 01:14 Dose: 4.5 gm - Objective Vital Signs: Vital Signs Temperature 99 F 10/17/16 06:00 Pulse Rate 82 10/17/16 06:00 Respiratory Rate 14 10/17/16 07:14 Blood Pressure 117/66 10/17/16 06:00 O2 Sat by Pulse Oximetry (%) 100 10/16/16 20:46 Constitutional: Yes: No Distress, Other (INtubated) Cardiovascular: Yes: Regular Rate and Rhythm, S1, S2. No: Murmur Respiratory: Yes: WNL, Regular, CTA Bilaterally Gastrointestinal: Yes: WNL, Normal Bowel Sounds, Soft. No: Splenomegaly, Tenderness, Tenderness, Rebound Extremities: No: Cold, Cool, Cyanosis Edema: No Labs: CBC, BMP 10/17/16 05:25 10/17/16 05:25 INR, PTT INR 1.42 (0.82-1.09) H 10/16/16 05:10 Problem List - Problems (1) ALS (amyotrophic lateral sclerosis) Code(s): G12.21 - AMYOTROPHIC LATERAL SCLEROSIS (2) Cardiac arrest Code(s): I46.9 - CARDIAC ARREST, CAUSE UNSPECIFIED (3) Respiratory failure requiring intubation Code(s): J96.90 - RESPIRATORY FAILURE, UNSP, UNSP W HYPOXIA OR HYPERCAPNIA Assessment/Plan Microbiology 10/16/16 01:35 Nasopharyngeal Swab Respiratory Virus (PCR) - Preliminary 10/15/16 22:23 Blood - Peripheral Venous Blood Culture - Preliminary NO GROWTH OBTAINED AFTER 24 HOURS, INCUBATION TO CONTINUE FOR 4 DAYS. 10/15/16 22:23 Blood - Peripheral Venous Blood Culture - Preliminary NO GROWTH OBTAINED AFTER 24 HOURS, INCUBATION TO CONTINUE FOR 4 DAYS. Laboratory Tests 10/15/16 10/16/16 10/16/16 22:23 01:32 05:10 WBC Hgb Hct Plt Count INR 1.42 H ABG pH 7.58 H ABG pCO2 at Pt Temp 36.9 Oxygen Flow Rate 40% Total Bilirubin AST ALT Alkaline Phosphatase Ur Leukocyte Esterase Negative 10/17/16 10/17/16 05:25 05:25 WBC 12.8 H Hgb 12.5 Hct 37.7 Plt Count 156 INR ABG pH ABG pCO2 at Pt Temp Oxygen Flow Rate Total Bilirubin 0.9 D AST 44 H D ALT 63 Alkaline Phosphatase 97 Ur Leukocyte Esterase Assessment Respiratory failure S/P cardiac arrest Parox atrial fibrillation Empiric antibiotics ? sepsis ALS Plan Will consider stopping all antibiotics once cultures final NO infiltrate seen today Margot LOVELACE
[2016-10-17 07:38] LABS: ARTERIAL BLD GAS O2 SATURATION 99.4 % (90-98.9); ARTERIAL BLOOD GAS BASE EXCESS 7.2 meq/l (-2-2); ARTERIAL BLOOD GAS HCO3 31.5 meq/L (22-26)
[2016-10-17 07:39] LABS: ALLENS TEST POSITIVE; ART PUNCT SITE RIGHT BRACHIAL; LPM/O2% 40%; MECH. VENT. ESPRIT; PT. ON O2? YES; TYPE OF O2 MEC.VENT; VENT RATE 12; VT/PRESS 350
[2016-10-17 07:40] LABS: ARTERIAL BLOOD GAS pH 7.46 (7.35-7.45)
[2016-10-17] MEDS: CHLORHEXIDINE GLUCONATE 0.12% 15ML CUP MM SCH ×2 (09:44→21:27)
[2016-10-17] MEDS: APIXABAN 5 MG TABLET PO SCH (09:44)
[2016-10-17] MEDS: FAMOTIDINE 20 MG/50 ML IVPB 50 ML IVPB SCH ×2 (09:44→21:25)
[2016-10-17] MEDS: MIRTAZAPINE 15 MG TABLET (FP) NGT SCH (09:45)
[2016-10-17] MEDS: METHIMAZOLE 10 MG TABLET (FP) NGT SCH (09:45)
[2016-10-17] MEDS: MUPIROCIN 2% TOPICAL OINTMENT FOR DECOLONIZATION NS SCH ×2 (10:00→21:27)
--- NOTE | 2016-10-17 10:52 | PN ---
Physical Exam: SUBJECTIVE: Patient seen and examined at bedside. Pt still sedated, on versed drip. OBJECTIVE: Vital Signs Period Temp Pulse Resp BP Sys/Hatch Pulse Ox Last 24 Hr 98.9 F-100.8 F 82-99 12-23 102-160/52-95 100-100 GENERAL: The patient is sedated and on versed drip HEAD: Normal with no signs of trauma. EYES: PERRL ENT: Ears normal, nares patent, oropharynx difficult to assess as pt is on vent NECK: Trachea midline LUNGS: Breath sounds equal, clear to auscultation bilaterally, no wheezes, no crackles, no accessory muscle use. HEART: RRR, S1, S2 without murmur, rub or gallop. ABDOMEN: Soft, nontender, nondistended, normoactive bowel sounds, no guarding, no rebound EXTREMITIES: 2+ posterior tibial pulses, warm, well-perfused, no edema. NEUROLOGICAL: difficult to assess as pt is sedated, gag reflex not elicited with suction Laboratory Results - last 24 hr 10/16/16 10/16/16 10/16/16 10:20 12:49 17:03 WBC RBC Hgb Hct MCV MCH MCHC RDW Plt Count MPV Neutrophils % Lymphocytes % Monocytes % Eosinophils % Basophils % INR Puncture Site ABG pH ABG pCO2 at Pt Temp ABG pO2 at Pt Temp ABG HCO3 ABG O2 Sat (Measured) ABG O2 Content ABG Base Excess Corwin Test O2 Delivery Device Oxygen Flow Rate Vent Mode Vent Rate Mechanical Rate PEEP Pressure Support Vent Sodium Potassium Chloride Carbon Dioxide Anion Gap BUN Creatinine Creat Clearance w eGFR POC Glucometer 99.41423 109.83299 Random Glucose Lactic Acid 1.7 Calcium Phosphorus Magnesium Total Bilirubin AST ALT Alkaline Phosphatase Total Protein Albumin 10/16/16 10/17/16 10/17/16 18:20 05:25 05:25 WBC 12.8 H RBC 4.11 Hgb 12.5 Hct 37.7 MCV 91.8 MCH 30.3 MCHC 33.1 RDW 15.1 Plt Count 156 MPV 8.9 D Neutrophils % 80.9 Lymphocytes % 10.1 D Monocytes % 7.5 D Eosinophils % 1.1 D Basophils % 0.4 INR 1.32 H Puncture Site ABG pH ABG pCO2 at Pt Temp ABG pO2 at Pt Temp ABG HCO3 ABG O2 Sat (Measured) ABG O2 Content ABG Base Excess Corwin Test O2 Delivery Device Oxygen Flow Rate Vent Mode Vent Rate Mechanical Rate PEEP Pressure Support Vent Sodium 145 Potassium 3.5 D Chloride 104 Carbon Dioxide 34 H Anion Gap 7 L BUN 11 Creatinine 0.4 L D Creat Clearance w eGFR POC Glucometer Random Glucose 102 Lactic Acid Calcium 8.5 Phosphorus 3.7 D Magnesium 2.0 Total Bilirubin AST ALT Alkaline Phosphatase Total Protein Albumin 10/17/16 10/17/16 10/17/16 05:25 05:59 07:25 WBC RBC Hgb Hct MCV MCH MCHC RDW Plt Count MPV Neutrophils % Lymphocytes % Monocytes % Eosinophils % Basophils % INR Puncture Site Right brachial ABG pH 7.46 H ABG pCO2 at Pt Temp 44.7 D ABG pO2 at Pt Temp 150.0 H D ABG HCO3 31.5 H ABG O2 Sat (Measured) 99.4 H ABG O2 Content 16.8 ABG Base Excess 7.2 H Corwin Test Positive O2 Delivery Device Mec.vent Oxygen Flow Rate 40% Vent Mode A/c Vent Rate 12 Mechanical Rate Esprit PEEP 5.0 Pressure Support Vent 350 Sodium 147 H Potassium 3.5 Chloride 104 Carbon Dioxide 35 H Anion Gap 8 BUN 14 D Creatinine 0.6 D Creat Clearance w eGFR > 60 POC Glucometer 111.08169 Random Glucose 88 Lactic Acid Calcium 8.6 Phosphorus 3.4 Magnesium 2.1 Total Bilirubin 0.9 D AST 44 H D ALT 63 Alkaline Phosphatase 97 Total Protein 5.8 L Albumin 2.6 L Active Medications Generic Name Dose Route Start Last Admin Trade Name Freq PRN Reason Stop Dose Admin Apixaban 5 mg 10/16/16 10:00 10/17/16 09:44 Eliquis - PO 5 mg DAILY SILVIA Administration Chlorhexidine Gluconate 1 applic 10/16/16 22:00 10/16/16 21:27 Hibiclens For Decolonization - TP 1 applic HS SILVIA Administration Chlorhexidine Gluconate 15 ml 10/16/16 12:15 10/17/16 09:44 Peridex - MM 15 ml BID SILVIA Administration Fentanyl 25 mcg 10/16/16 21:48 10/16/16 21:05 Sublimaze Injection - IVPUSH 10/17/16 21:59 25 mcg Q1H PRN Administration PAIN LEVEL 1-5 Midazolam HCl 100 mg/ Sodium 100 mls @ 2 mls/hr 10/15/16 22:15 10/16/16 22:15 Chloride IVPB 4 mls/hr TITR SILVIA Administration Protocol 2 MG/HR Sodium Chloride 1,000 mls @ 75 mls/hr 10/16/16 01:00 10/17/16 01:13 Normal Saline - IV 75 mls/hr ASDIR SILVIA Administration Vancomycin HCl 250 mls @ 166.667 mls/hr 10/16/16 14:00 10/17/16 01:12 Vancomycin (Pre-Docked) IVPB 166.667 mls/hr Q12H SILVIA Administration Famotidine/Sodium Chloride 50 mls @ 100 mls/hr 10/16/16 10:00 10/17/16 09:44 Pepcid 20 Mg Premixed Ivpb - IVPB 100 mls/hr BID SILVIA Administration Lidocaine HCl 1 applic 10/16/16 20:38 10/16/16 20:51 Xylocaine 2% Jelly TP 1 applic Q4H PRN Administration PAIN Methimazole 10 mg 10/16/16 10:00 10/17/16 09:45 Tapazole - NGT 10 mg DAILY SILVIA Administration Mirtazapine 15 mg 10/16/16 10:00 10/17/16 09:45 Remeron - NGT 15 mg DAILY SILVIA Administration Mupirocin 1 applic 10/16/16 10:00 10/16/16 22:13 Bactroban Ointment (For Decolonization) - NS 10/21/16 09:59 1 applic BID SILVIA Administration Piperacillin Sod/Tazobactam Sod 4.5 gm 10/16/16 10:30 10/17/16 01:14 Zosyn 4.5gm Ivpb (Pre-Docked) IVPB 4.5 gm Q8H-IV SILVIA Administration ASSESSMENT/PLAN: 56 yr old F with PMH ALS, chronic hypercapnic resp failure, HTN, HLD, hyperthyroidism, goiter, intubated to ED via EMS due to resp arrest. In ED, pt had cardiac arrest (V tach) for 5 min, was resuscitated and stabilized, admitted to ICU. 1. s/p Cardiac arrest in ED possibly secondary to hypoxia -Troponins negative x2 -F/u Echo -F/u cardio consult note -Mg, phosphate WNL 2. Lactic acidosis secondary to cardiac arrest-resolved 3. Hypokalemia, Hypophosphatemia-resolved 4. Acute on chronic respiratory failure secondary to possible aspiration pneumonia vs. ALS -Spoke to Dr. Carr- pt has not been on Riluzole since 2015, and should not be on it now as it is non-formulary -Pt intubated, on Versed -10/17: did 4 hrs of CPAP -Ofirmev 1000 mg IVPB q6 PRN for pain -Continue vanco 250ml q12 and zosyn 4.5 grams IVPB q8 (Day2), as per ID can d/c once cx are negative -F/u follow vanco trough 4th dose tomorrow -Cx: Legionella -, strep pneumo urine antigen -, Sputum cx pending -Feedings: dietary to see pt to decide feeds 5. Hypernatremia -Once feedings begin, 50cc of free water will be given simultaneously to decrease Na -Last Na readin 5. Paroxysmal afib -Continue Eliquis 5mg NGT daily 6. Hyperthyroidism -Continue Methimazole 7. Major Depressive Disorder -Continue Remeron 8. Palliative care -spoke to family, they want to trial her on vent until tomorrow before palliative F/E/N IV NS 75 mls/hr Monitor electrolytes Visit type - Emergency Visit Emergency Visit: No - New Patient This patient is new to me today: No - Critical Care Critical Care patient: Yes Total Critical Care Time (in minutes): 12
[2016-10-17] MEDS ORDERED: METOPROLOL TARTRATE 5 MG/5 ML VIAL ONE (11:05)
[2016-10-17] MEDS ORDERED: METOPROLOL TARTRATE 5 MG/5 ML VIAL IVPUSH ONE ×2 (11:05→11:15)
[2016-10-17] MEDS ORDERED: METOPROLOL TARTRATE 50 MG TABLET (FP) ONE (11:29)
--- NOTE | 2016-10-17 11:46 | PN ---
Physical Exam: SUBJECTIVE: Patient seen by me - WBC uptrending (10.1 to 12.8). No prominent left shift - ABG notable for mild respiratory alkalosis - HypoK correcting (2.8->3.5)' - Day 2 of Vanc/zosyn - Low grade fevers early today. Remains intubated. Other updates: - Legionella, Strep pneumo neg - Urine, Blood cxs neg to date - sputum cx pending OBJECTIVE: Vital Signs Period Temp Pulse Resp BP Sys/Hatch Pulse Ox Last 24 Hr 98.9 F-100.8 F 82-99 12-23 102-160/52-95 100-100 GENERAL: Sedated, intubated. Laying in bed. HEAD: Normal with no signs of trauma. EYES: Pupils constricted, minimally reactive to light. sclera anicteric, conjunctiva clear. No lid lag. EARS, NOSE, THROAT: Ears normal, nares patent, oropharynx clear without exudates. Dried blood on lips. Moist mucous membranes. NECK: supple without lymphadenopathy, JVD, or masses. LUNGS: Anterior chest exam performed. Decreased breath sounds at bases bilaterally. No wheezes, and no crackles. No accessory muscle use. HEART: Regular rate and rhythm, normal S1 and S2 without murmur, rub or gallop. ABDOMEN: Soft, not distended, normoactive bowel sounds, no masses. No hepatomegaly or splenomegaly. MUSCULOSKELETAL: No bony deformities or tenderness. UPPER EXTREMITIES: 2+ pulses, warm, well-perfused. No cyanosis. No clubbing. Cap refill <2 seconds. No peripheral edema. LOWER EXTREMITIES: 2+ pulses, warm, well-perfused. No peripheral edema. No decubitus ulcers noted. NEUROLOGICAL: Sedated. SKIN: Warm, dry, normal turgor, no rashes or lesions noted. Laboratory Results - last 24 hr CBC, BMP 10/17/16 05:25 10/17/16 05:25 10/16/16 10/16/16 10/16/16 12:49 17:03 18:20 WBC RBC Hgb Hct MCV MCH MCHC RDW Plt Count MPV Neutrophils % Lymphocytes % Monocytes % Eosinophils % Basophils % INR Puncture Site ABG pH ABG pCO2 at Pt Temp ABG pO2 at Pt Temp ABG HCO3 ABG O2 Sat (Measured) ABG O2 Content ABG Base Excess Corwin Test O2 Delivery Device Oxygen Flow Rate Vent Mode Vent Rate Mechanical Rate PEEP Pressure Support Vent Sodium 145 Potassium 3.5 D Chloride 104 Carbon Dioxide 34 H Anion Gap 7 L BUN 11 Creatinine 0.4 L D Creat Clearance w eGFR POC Glucometer 99.11386 109.85896 Random Glucose 102 Calcium 8.5 Phosphorus 3.7 D Magnesium 2.0 Total Bilirubin AST ALT Alkaline Phosphatase Total Protein Albumin 10/17/16 10/17/16 10/17/16 05:25 05:25 05:25 WBC 12.8 H RBC 4.11 Hgb 12.5 Hct 37.7 MCV 91.8 MCH 30.3 MCHC 33.1 RDW 15.1 Plt Count 156 MPV 8.9 D Neutrophils % 80.9 Lymphocytes % 10.1 D Monocytes % 7.5 D Eosinophils % 1.1 D Basophils % 0.4 INR 1.32 H Puncture Site ABG pH ABG pCO2 at Pt Temp ABG pO2 at Pt Temp ABG HCO3 ABG O2 Sat (Measured) ABG O2 Content ABG Base Excess Corwin Test O2 Delivery Device Oxygen Flow Rate Vent Mode Vent Rate Mechanical Rate PEEP Pressure Support Vent Sodium 147 H Potassium 3.5 Chloride 104 Carbon Dioxide 35 H Anion Gap 8 BUN 14 D Creatinine 0.6 D Creat Clearance w eGFR > 60 POC Glucometer Random Glucose 88 Calcium 8.6 Phosphorus 3.4 Magnesium 2.1 Total Bilirubin 0.9 D AST 44 H D ALT 63 Alkaline Phosphatase 97 Total Protein 5.8 L Albumin 2.6 L 10/17/16 10/17/16 05:59 07:25 WBC RBC Hgb Hct MCV MCH MCHC RDW Plt Count MPV Neutrophils % Lymphocytes % Monocytes % Eosinophils % Basophils % INR Puncture Site Right brachial ABG pH 7.46 H ABG pCO2 at Pt Temp 44.7 D ABG pO2 at Pt Temp 150.0 H D ABG HCO3 31.5 H ABG O2 Sat (Measured) 99.4 H ABG O2 Content 16.8 ABG Base Excess 7.2 H Corwin Test Positive O2 Delivery Device Mec.vent Oxygen Flow Rate 40% Vent Mode A/c Vent Rate 12 Mechanical Rate Esprit PEEP 5.0 Pressure Support Vent 350 Sodium Potassium Chloride Carbon Dioxide Anion Gap BUN Creatinine Creat Clearance w eGFR POC Glucometer 111.88504 Random Glucose Calcium Phosphorus Magnesium Total Bilirubin AST ALT Alkaline Phosphatase Total Protein Albumin Microbiology 10/15/16 22:23 Urine - Urine Carrillo Urine Culture - Final NO GROWTH OBTAINED 10/16/16 22:00 Urine For Antigen Detection Legionella Antigen - Final 10/16/16 22:00 Urine For Antigen Detection Streptococcus pneumoniae Antigen (M - Final 10/15/16 22:23 Blood - Peripheral Venous Blood Culture - Preliminary NO GROWTH OBTAINED AFTER 24 HOURS, INCUBATION TO CONTINUE FOR 4 DAYS. 10/15/16 22:23 Blood - Peripheral Venous Blood Culture - Preliminary NO GROWTH OBTAINED AFTER 24 HOURS, INCUBATION TO CONTINUE FOR 4 DAYS. 10/16/16 01:35 Nasopharyngeal Swab Respiratory Virus (PCR) - Preliminary Active Medications Generic Name Dose Route Start Last Admin Trade Name Freq PRN Reason Stop Dose Admin Apixaban 5 mg 10/16/16 10:00 10/17/16 09:44 Eliquis - PO 5 mg DAILY SILVIA Administration Chlorhexidine Gluconate 1 applic 10/16/16 22:00 10/16/16 21:27 Hibiclens For Decolonization - TP 1 applic HS SILVIA Administration Chlorhexidine Gluconate 15 ml 10/16/16 12:15 10/17/16 09:44 Peridex - MM 15 ml BID SILVIA Administration Fentanyl 25 mcg 10/16/16 21:48 10/16/16 21:05 Sublimaze Injection - IVPUSH 10/17/16 21:59 25 mcg Q1H PRN Administration PAIN LEVEL 1-5 Midazolam HCl 100 mg/ Sodium 100 mls @ 2 mls/hr 10/15/16 22:15 10/16/16 22:15 Chloride IVPB 4 mls/hr TITR SILVIA Administration Protocol 2 MG/HR Sodium Chloride 1,000 mls @ 75 mls/hr 10/16/16 01:00 10/17/16 01:13 Normal Saline - IV 75 mls/hr ASDIR SILVIA Administration Vancomycin HCl 250 mls @ 166.667 mls/hr 10/16/16 14:00 10/17/16 01:12 Vancomycin (Pre-Docked) IVPB 166.667 mls/hr Q12H SILVIA Administration Famotidine/Sodium Chloride 50 mls @ 100 mls/hr 10/16/16 10:00 10/17/16 09:44 Pepcid 20 Mg Premixed Ivpb - IVPB 100 mls/hr BID SILVIA Administration Lidocaine HCl 1 applic 10/16/16 20:38 10/16/16 20:51 Xylocaine 2% Jelly TP 1 applic Q4H PRN Administration PAIN Methimazole 10 mg 10/16/16 10:00 10/17/16 09:45 Tapazole - NGT 10 mg DAILY SILVIA Administration Mirtazapine 15 mg 10/16/16 10:00 10/17/16 09:45 Remeron - NGT 15 mg DAILY SILVIA Administration Mupirocin 1 applic 10/16/16 10:00 10/16/16 22:13 Bactroban Ointment (For Decolonization) - NS 10/21/16 09:59 1 applic BID SILVIA Administration Piperacillin Sod/Tazobactam Sod 4.5 gm 10/16/16 10:30 10/17/16 01:14 Zosyn 4.5gm Ivpb (Pre-Docked) IVPB 4.5 gm Q8H-IV SILVIA Administration ASSESSMENT/PLAN: ssessment: 56 yo woman w/ pmh of ALS, pA-fib, chronic hypercapneic respiratory failure, HTN , hyperthyroidism, who was BIBEMS from [place] due to acute respiratory arrest. PE notable for febrile status, no decubitus ulcers or rashes, normal lung exam and hypotension on presentation. Labs notable for uptrending WBC count, resolved hypoK. Prior imaging notable for suspected retrocardiac consolidation and L pleural effusion. Given patient's neurological status, recent worsening respiratory status on d/c last week, elevated lactate and fever and respiratory arrest, differential remains HCAP vs. aspiration PNA vs. respiratory arrest secondary to worsening neurorespiratory status. Continue coverage for HCAP w/ Vanc/Zosyn until cultures result. Plan: Suspected PNA - Abx coverage for HCAP. Consider cessation of abx once cultures result. - Vanc 1g IV BID - Zosyn 4.5g IV Q8H - f/u sputum, blood, urine cx's - urinary legionella, pneumococcal Ag neg - Serial CBCs - Trend fever curve, WBCs - Remove/exchange central line in L femoral vein Roman Mena MD, PGY1 Plan to be discussed with attending Dispo: We will continue to follow the patient. Thank you for this consultative opportunity. Problem List - Problems (1) ALS (amyotrophic lateral sclerosis) Code(s): G12.21 - AMYOTROPHIC LATERAL SCLEROSIS (2) Respiratory failure Code(s): J96.90 - RESPIRATORY FAILURE, UNSP, UNSP W HYPOXIA OR HYPERCAPNIA Qualifiers: Chronicity: acute Respiratory failure complication: hypoxia and hypercapnia Qualified Code(s): J96.01 - Acute respiratory failure with hypoxia (3) Pneumonia Code(s): J18.9 - PNEUMONIA, UNSPECIFIED ORGANISM Qualifiers: Pneumonia type: due to unspecified organism Laterality: left Lung location: upper lobe of lung Qualified Code(s): J18.1 - Lobar pneumonia, unspecified organism Visit type - Emergency Visit Emergency Visit: No - New Patient This patient is new to me today: No - Critical Care Critical Care patient: No
--- NOTE | 2016-10-17 11:50 | PN ---
Physical Exam: SUBJECTIVE: Patient seen and examined at bedside in ICU. Pt intubated and off sedation this AM but still not responsive from sedation. OBJECTIVE: Vital Signs Temperature 99 F 10/17/16 06:00 Pulse Rate 84 10/17/16 10:24 Respiratory Rate 12 10/17/16 10:24 Blood Pressure 117/66 10/17/16 06:00 O2 Sat by Pulse Oximetry (%) 100 10/17/16 10:24 GENERAL: intubated HEAD: Normal with no signs of trauma. EYES: Pupils equal, round and reactive to light EARS, NOSE, THROAT: Ears normal, nares patent LUNGS: Auscultated anteriorly - CTA B/L HEART: Regular rate and rhythm, normal S1 and S2 ABDOMEN: Soft, nontender, not distended, normoactive bowel sounds LOWER EXTREMITIES: 2+ pulses, warm, no peripheral edema. NEUROLOGICAL: Sedated SKIN: dry Laboratory Results - last 24 hr 10/16/16 10/16/16 10/16/16 12:49 17:03 18:20 WBC RBC Hgb Hct MCV MCH MCHC RDW Plt Count MPV Neutrophils % Lymphocytes % Monocytes % Eosinophils % Basophils % INR Puncture Site ABG pH ABG pCO2 at Pt Temp ABG pO2 at Pt Temp ABG HCO3 ABG O2 Sat (Measured) ABG O2 Content ABG Base Excess Corwin Test O2 Delivery Device Oxygen Flow Rate Vent Mode Vent Rate Mechanical Rate PEEP Pressure Support Vent Sodium 145 Potassium 3.5 D Chloride 104 Carbon Dioxide 34 H Anion Gap 7 L BUN 11 Creatinine 0.4 L D Creat Clearance w eGFR POC Glucometer 99.70599 109.87213 Random Glucose 102 Calcium 8.5 Phosphorus 3.7 D Magnesium 2.0 Total Bilirubin AST ALT Alkaline Phosphatase Total Protein Albumin 10/17/16 10/17/16 10/17/16 05:25 05:25 05:25 WBC 12.8 H RBC 4.11 Hgb 12.5 Hct 37.7 MCV 91.8 MCH 30.3 MCHC 33.1 RDW 15.1 Plt Count 156 MPV 8.9 D Neutrophils % 80.9 Lymphocytes % 10.1 D Monocytes % 7.5 D Eosinophils % 1.1 D Basophils % 0.4 INR 1.32 H Puncture Site ABG pH ABG pCO2 at Pt Temp ABG pO2 at Pt Temp ABG HCO3 ABG O2 Sat (Measured) ABG O2 Content ABG Base Excess Corwin Test O2 Delivery Device Oxygen Flow Rate Vent Mode Vent Rate Mechanical Rate PEEP Pressure Support Vent Sodium 147 H Potassium 3.5 Chloride 104 Carbon Dioxide 35 H Anion Gap 8 BUN 14 D Creatinine 0.6 D Creat Clearance w eGFR > 60 POC Glucometer Random Glucose 88 Calcium 8.6 Phosphorus 3.4 Magnesium 2.1 Total Bilirubin 0.9 D AST 44 H D ALT 63 Alkaline Phosphatase 97 Total Protein 5.8 L Albumin 2.6 L 10/17/16 10/17/16 05:59 07:25 WBC RBC Hgb Hct MCV MCH MCHC RDW Plt Count MPV Neutrophils % Lymphocytes % Monocytes % Eosinophils % Basophils % INR Puncture Site Right brachial ABG pH 7.46 H ABG pCO2 at Pt Temp 44.7 D ABG pO2 at Pt Temp 150.0 H D ABG HCO3 31.5 H ABG O2 Sat (Measured) 99.4 H ABG O2 Content 16.8 ABG Base Excess 7.2 H Corwin Test Positive O2 Delivery Device Mec.vent Oxygen Flow Rate 40% Vent Mode A/c Vent Rate 12 Mechanical Rate Esprit PEEP 5.0 Pressure Support Vent 350 Sodium Potassium Chloride Carbon Dioxide Anion Gap BUN Creatinine Creat Clearance w eGFR POC Glucometer 111.58337 Random Glucose Calcium Phosphorus Magnesium Total Bilirubin AST ALT Alkaline Phosphatase Total Protein Albumin Imaging: CXR: Progressive L base changes. Active Medications Generic Name Dose Route Start Last Admin Trade Name Freq PRN Reason Stop Dose Admin Apixaban 5 mg 10/16/16 10:00 10/17/16 09:44 Eliquis - PO 5 mg DAILY SILVIA Administration Chlorhexidine Gluconate 1 applic 10/16/16 22:00 10/16/16 21:27 Hibiclens For Decolonization - TP 1 applic HS SILVIA Administration Chlorhexidine Gluconate 15 ml 10/16/16 12:15 10/17/16 09:44 Peridex - MM 15 ml BID SILVIA Administration Fentanyl 25 mcg 10/16/16 21:48 10/16/16 21:05 Sublimaze Injection - IVPUSH 10/17/16 21:59 25 mcg Q1H PRN Administration PAIN LEVEL 1-5 Midazolam HCl 100 mg/ Sodium 100 mls @ 2 mls/hr 10/15/16 22:15 10/16/16 22:15 Chloride IVPB 4 mls/hr TITR SILVIA Administration Protocol 2 MG/HR Sodium Chloride 1,000 mls @ 75 mls/hr 10/16/16 01:00 10/17/16 01:13 Normal Saline - IV 75 mls/hr ASDIR SILVIA Administration Vancomycin HCl 250 mls @ 166.667 mls/hr 10/16/16 14:00 10/17/16 01:12 Vancomycin (Pre-Docked) IVPB 166.667 mls/hr Q12H SILVIA Administration Famotidine/Sodium Chloride 50 mls @ 100 mls/hr 10/16/16 10:00 10/17/16 09:44 Pepcid 20 Mg Premixed Ivpb - IVPB 100 mls/hr BID SILVIA Administration Lidocaine HCl 1 applic 10/16/16 20:38 10/16/16 20:51 Xylocaine 2% Jelly TP 1 applic Q4H PRN Administration PAIN Methimazole 10 mg 10/16/16 10:00 10/17/16 09:45 Tapazole - NGT 10 mg DAILY SILVIA Administration Mirtazapine 15 mg 10/16/16 10:00 10/17/16 09:45 Remeron - NGT 15 mg DAILY SILVIA Administration Mupirocin 1 applic 10/16/16 10:00 10/16/16 22:13 Bactroban Ointment (For Decolonization) - NS 10/21/16 09:59 1 applic BID SILVIA Administration Piperacillin Sod/Tazobactam Sod 4.5 gm 10/16/16 10:30 10/17/16 01:14 Zosyn 4.5gm Ivpb (Pre-Docked) IVPB 4.5 gm Q8H-IV SILVIA Administration ASSESSMENT/PLAN: 56 y/o F with PMH of ALS, chronic hypercapnic resp failure, HTN, hyperthyroidism presented to ER via EMS from [place] for SOB. Admitted to ICU with respiratory failure requiring intubation s/p cardiac arrest with ROSC in ER. -Neuro -Sedated and intubated -Will change sedation to propofol or versed pushes if sedation needed. Will stop versed drip. -Sedation vacations in AM -ALS -Neuro on board -Pulm -Acute respiratory failure secondary to possible aspiration pna vs progressive ALS -c/w vanco and zosyn as per ID recommendations, f/u trough for vanco before 4th dose -f/u cultures, UAg for PNA, respiratory virus panel, BCx [id number] -Intubated on vent -wean trials -ABG in AM -ID on board -C/V -S/P Cardiac arrest on 10/16/16 in ER w/ROSC -trops neg x2 -Paroxysmal A-fib -c/w eliquis 5mg NGT daily -Pt w/ episodes of RVR this morning. Given 5mg IV push of lopressors x2 and lopressor 50 mg via NGT but remains tachy. -Cardio consulted -Endocrine -Hyperthyroidism -c/w methimazole 10 mg NGT -Psych -MDD -c/w remeron 15 mg NGT qd -Prophylaxis -DVT: eliquis 5 mg NGT daily -GI: Pepcid IV 20 mg BID -FEN -NS @ 75 ml/hr -Hypernatremia, will start on feeds with 50 cc free water. monitor lytes -Feeds as per dietary recommendations -Dispo: -Continue to monitor in the ICU Problem List - Problems (1) Pneumonia Code(s): J18.9 - PNEUMONIA, UNSPECIFIED ORGANISM Qualifiers: Qualified Code(s): J18.1 - Lobar pneumonia, unspecified organism (2) ALS (amyotrophic lateral sclerosis) Code(s): G12.21 - AMYOTROPHIC LATERAL SCLEROSIS (3) Hyperthyroidism Code(s): E05.90 - THYROTOXICOSIS, UNSP WITHOUT THYROTOXIC CRISIS OR STORM (4) Hypokalemia Code(s): E87.6 - HYPOKALEMIA (5) Paroxysmal atrial fibrillation Code(s): I48.0 - PAROXYSMAL ATRIAL FIBRILLATION (6) Respiratory failure Code(s): J96.90 - RESPIRATORY FAILURE, UNSP, UNSP W HYPOXIA OR HYPERCAPNIA Qualifiers: Qualified Code(s): J96.01 - Acute respiratory failure with hypoxia Visit type - Emergency Visit Emergency Visit: Yes ED Registration Date: 10/15/16 Care time: The patient presented to the Emergency Department on the above date and was hospitalized for further evaluation of their emergent condition. - New Patient This patient is new to me today: No - Critical Care Critical Care patient: Yes Total Critical Care Time (in minutes): 35 Critical Care Statement: The care of this patient involved high complexity decision making to prevent further life threatening deterioration of the patient 's condition and/or to evalute & treat vital organ system(s) failure or risk of failure.
--- NOTE | 2016-10-17 12:04 | PN ---
Teaching Attending Note Name of Resident: Kaiser Escudero ATTENDING PHYSICIAN STATEMENT I saw and evaluated the patient. I reviewed the resident's note and discussed the case with the resident. I agree with the resident's findings and plan as documented. SUBJECTIVE: Pt seen and examined in the ICU. Remains intubated, sedated. Tolerated 4 hrs of CPAP/PS yesterday. In and out of rapid afib this AM. OBJECTIVE: Last Vital Signs Temp Pulse Resp BP Pulse Ox 99 F 84 12 117/66 100 10/17/16 06:00 10/17/16 10:24 10/17/16 10:24 10/17/16 06:00 10/17/16 10:24 Intake & Output 10/14/16 10/15/16 10/16/16 10/17/16 23:59 23:59 23:59 23:59 Intake Total 2030 1250 Output Total 900 300 Balance 1130 950 Weight 175 lb 157 lb 6.561 oz 160 lb 8 oz Gen: intubated, sedated Heart: irregular Lung: scattered rhonchi Abd: soft, nontneder Ext: no edema CBC, BMP 10/17/16 05:25 10/17/16 05:25 ABG Results ABG pH 7.46 (7.35-7.45) H 10/17/16 07:25 ABG pCO2 at Pt Temp 44.7 mmHg (35-45) D 10/17/16 07:25 ABG pO2 at Pt Temp 150.0 mmHg (80-100) H D 10/17/16 07:25 ABG HCO3 31.5 meq/L (22-26) H 10/17/16 07:25 ABG O2 Sat (Measured) 99.4 % (90-98.9) H 10/17/16 07:25 ABG O2 Content 16.8 % vol (15-22) 10/17/16 07:25 ABG Base Excess 7.2 meq/l (-2-2) H 10/17/16 07:25 Active Medications Apixaban (Eliquis -) 5 mg PO DAILY [facility] Last Admin: 10/17/16 09:44 Dose: 5 mg Chlorhexidine Gluconate (Hibiclens For Decolonization -) 1 applic TP HS [facility] Last Admin: 10/16/16 21:27 Dose: 1 applic Chlorhexidine Gluconate (Peridex -) 15 ml MM BID [facility] Last Admin: 10/17/16 09:44 Dose: 15 ml Fentanyl (Sublimaze Injection -) 25 mcg IVPUSH Q1H PRN PRN Reason: PAIN LEVEL 1-5 Stop: 10/17/16 21:59 Last Admin: 10/16/16 21:05 Dose: 25 mcg Midazolam HCl 100 mg/ Sodium (Chloride) 100 mls @ 2 mls/hr IVPB TITR [facility]; 2 MG/ HR PRN Reason: Protocol Last Admin: 10/16/16 22:15 Dose: 4 mls/hr Sodium Chloride (Normal Saline -) 1,000 mls @ 75 mls/hr IV ASDIR [facility] Last Admin: 10/17/16 01:13 Dose: 75 mls/hr Vancomycin HCl (Vancomycin (Pre-Docked)) 250 mls @ 166.667 mls/hr IVPB Q12H [facility] Last Admin: 10/17/16 01:12 Dose: 166.667 mls/hr Famotidine/Sodium Chloride (Pepcid 20 Mg Premixed Ivpb -) 50 mls @ 100 mls/hr IVPB BID [facility] Last Admin: 10/17/16 09:44 Dose: 100 mls/hr Lidocaine HCl (Xylocaine 2% Jelly) 1 applic TP Q4H PRN PRN Reason: PAIN Last Admin: 10/16/16 20:51 Dose: 1 applic Methimazole (Tapazole -) 10 mg NGT DAILY [facility] Last Admin: 10/17/16 09:45 Dose: 10 mg Mirtazapine (Remeron -) 15 mg NGT DAILY [facility] Last Admin: 10/17/16 09:45 Dose: 15 mg Mupirocin (Bactroban Ointment (For Decolonization) -) 1 applic NS BID [facility] Stop: 10/21/16 09:59 Last Admin: 10/16/16 22:13 Dose: 1 applic Piperacillin Sod/Tazobactam Sod (Zosyn 4.5gm Ivpb (Pre-Docked)) 4.5 gm IVPB Q8H -IV [facility] Last Admin: 10/17/16 01:14 Dose: 4.5 gm ASSESSMENT AND PLAN: Acute on Chronic Hypoxic and Hypercapneic Respiratory Failure s/p Cardiac Arrest Pneumonia Sepsis Lactic Acidosis resolved ALS Paroxysmal Atrial Fibrillation with RVR HTN Hyperthyroidism - continue antibiotics - f/u cultures - rate control with lopressor - continue anticoagulation - start enteral feeds - replace free water via OGT - d/c IVF - spontaneous breathing trials as tolerated - DVT/GI prophylaxis - continue discussions regarding goals of care, advanced directives critical care time spent in reviewing chart, evaluating patient and formulating plan 36 min
[2016-10-17] MEDS: METOPROLOL TARTRATE 50 MG TABLET (FP) PO SCH ×2 (12:15→21:26)
[2016-10-17] MEDS ORDERED: dilTIAZem HCL 125 MG/25 ML - 25 ML VIAL ONE (12:28)
[2016-10-17] MEDS ORDERED: dilTIAZem HCL 50 MG/10 ML - 10 ML VIAL IVPUSH ONE (12:37)
--- NOTE | 2016-10-17 13:03 | PN ---
Teaching Attending Note Name of Resident: Manjula Delvalle ATTENDING PHYSICIAN STATEMENT I saw and evaluated the patient. I reviewed the resident's note and discussed the case with the resident. I agree with the resident's findings and plan as documented. SUBJECTIVE:sedated OBJECTIVE: Last Vital Signs Temp Pulse Resp BP Pulse Ox 99 F 84 12 117/66 100 10/17/16 06:00 10/17/16 10:24 10/17/16 12:03 10/17/16 06:00 10/17/16 10:24 General sedated CV S1 S2 RRR no murmur/rub/gallop lungs CTA B/L no crackles or wheezing anteriorly Abdomen soft NT/ND Extremities no pedal edema ASSESSMENT AND PLAN: 56yo F with PMH ALS, chronic hypercapnic respiratory failure, HTN, hyperthyroid , afib and dyslipidemia brought into the ER in acute respiratory distress and intubated in the field with cardiac arrest in the ER 1. s/p cardiac arrest- likely due to hypoxia, ve electrolyte abnormality however can not r/o cardiac etiology as newly dx afib. as per note, Vtach noted on the monitor. ROSC after 5 munutes. cardiac enzymes neg x2. echo pending. 2. Acute on Chronic hypercapnic respiratory failure- likely due to progression of ALS vs HCAP. low grade fevers Tm 100.8. cpap trial yesterday x4H. will attempt cpap trial today. vent managment per ICU team. on Zosyn/Vanco day 2 for empiric treatment of PNA. ID and neuro consulted. on versed, riluzole. d/c IVF 3. Lactic acidosis- likely due to chest compresssions. resolved 4. Hypokalemia- resolved 5. Hypophosphatemia- resolved 6. Hyperthyroidism- TSH WNL. cont methimazole 7. HTN- currently normotensive. hold oral agents 8. Afib- currently rate controlled. on eliquis 9. DVT ppx- eliquis 10. cont MICU monitoring CC TIME 30 minutes. The care of this patient involved high complexity decision making to prevent further life threatening deterioration of the patient's condition and/or to evalute & treat vital organ system(s) failure or risk of failure.
--- NOTE | 2016-10-17 13:21 | CONSULT ---
Consult - text type - Consultation Consultation Note: NEUROLOGY CONSULTATION is greatly appreciated: Patient examined by me yesterday at 9:30 AM and again today (9 AM). This 56 yo RH woman with h/o HTN, Hyperthyroidism is well-known to me with Motor Neuron Disease (ALS). Diagnosed in 2013 with weakness in legs and bulbar groups. Followed at [facility]. Non -ambulatory since last fall. Maintained on CPAP at home. Still maintaining PO nutrition and hydration at home althought her and sons note increasing dysphagia and weak cough. Recently hospitalized for dyspnea and Rx for RRL infiltrates. Discharged to [place] last Saturday but readmitted Saturday evening after her son found her confused and somnolent. Intubated by EMS en route but required resuscitation for cardiac arrest in our ER. Yesterday AM was intubated on versed. Shallow spontaneous respirations. Pinpoint pupils. Opened eyes on command. Full EOM's. No limb mov'ts. Yesterday PM was tapered off versed and maintained ventilation with CPAP for 4 hours before she fatigued. Rapid AFib noted. On Eliquis. This AM: Sedated. Opens eyes to name. Intubated. NGTube. Shallow spontaneous respirations. Chest Xray: LLL infiltrates. RRR infiltrates improved. On Zosyn, Vanco. IMP: Severe hypoventilation due to ALS. Now sedated but apparently good LOC off sedation last PM, indicating a good result s/p cardiac resuscitation. Suggest: Continue antibiotics, hydration and nutritional support. Consider D/C to home with a CURASS Ventilator. Thank you very much, Hector Carr MD
--- NOTE | 2016-10-17 15:40 | PN ---
Progress Note, Physician Chief Complaint: Recently admitted w/PNA and PAF started Ellkellyis History of advanced ALS. Was discharged and was then brought back to ER several days later intubated and sustained a reported "cardiac arrest" in ER. I am called today to see her due to recurrent episodes of AF w/ RVR noted on monitor. Discussed with her RN today: her oral metoprolol was just resumed today. She reverted to NSR with pushes of IV metoprolol and IV cardizem. She is currently intubated on vent, cannot provide history. Echo repeated 10/09: TDS, grossly normal EF. History of Present Illness: See EMR records of admission: ER and resident description of ER events reviewed. Now on IV Vanco and Zosyn for PNA. Febrile almost daily: Selected Entries 10/16/16 10/16/16 10/16/16 00:38 02:00 04:00 Temperature 99.7 F H 100.6 F H 100.6 F H 10/16/16 10/16/16 10/16/16 06:00 08:00 14:00 Temperature 100.9 F H 100.7 F H 100 F H 10/16/16 10/16/16 10/17/16 18:00 20:00 14:00 Temperature 100 F H 99.8 F H 100.5 F H - Current Medication List Current Medications: Active Medications Apixaban (Eliquis -) 5 mg PO DAILY [facility] Last Admin: 10/17/16 09:44 Dose: 5 mg Chlorhexidine Gluconate (Hibiclens For Decolonization -) 1 applic TP HS [facility] Last Admin: 10/16/16 21:27 Dose: 1 applic Chlorhexidine Gluconate (Peridex -) 15 ml MM BID [facility] Last Admin: 10/17/16 09:44 Dose: 15 ml Fentanyl (Sublimaze Injection -) 25 mcg IVPUSH Q1H PRN PRN Reason: PAIN LEVEL 1-5 Stop: 10/17/16 21:59 Last Admin: 10/16/16 21:05 Dose: 25 mcg Vancomycin HCl (Vancomycin (Pre-Docked)) 250 mls @ 166.667 mls/hr IVPB Q12H [facility] Last Admin: 10/17/16 01:12 Dose: 166.667 mls/hr Famotidine/Sodium Chloride (Pepcid 20 Mg Premixed Ivpb -) 50 mls @ 100 mls/hr IVPB BID [facility] Last Admin: 10/17/16 09:44 Dose: 100 mls/hr Lidocaine HCl (Xylocaine 2% Jelly) 1 applic TP Q4H PRN PRN Reason: PAIN Last Admin: 10/16/16 20:51 Dose: 1 applic Methimazole (Tapazole -) 10 mg NGT DAILY [facility] Last Admin: 10/17/16 09:45 Dose: 10 mg Metoprolol Tartrate (Lopressor -) 50 mg PO BID [facility] Last Admin: 10/17/16 12:15 Dose: 50 mg Mirtazapine (Remeron -) 15 mg NGT DAILY [facility] Last Admin: 10/17/16 09:45 Dose: 15 mg Mupirocin (Bactroban Ointment (For Decolonization) -) 1 applic NS BID [facility] Stop: 10/21/16 09:59 Last Admin: 10/17/16 10:00 Dose: 1 applic Piperacillin Sod/Tazobactam Sod (Zosyn 4.5gm Ivpb (Pre-Docked)) 4.5 gm IVPB Q8H -IV [facility] Last Admin: 10/17/16 12:00 Dose: 4.5 gm - Objective Vital Signs: Vital Signs Temperature 100.5 F H 10/17/16 14:00 Pulse Rate 74 10/17/16 14:00 Respiratory Rate 12 10/17/16 14:04 Blood Pressure 126/84 10/17/16 14:00 O2 Sat by Pulse Oximetry (%) 100 10/17/16 10:24 Constitutional: Yes: Other (intubated) Eyes: Yes: Conjunctiva Clear Cardiovascular: Yes: Regular Rate and Rhythm Respiratory: Yes: Other (no rales. Decreased breath sounds left base.) Gastrointestinal: Yes: Soft Edema: No Neurological: Yes: Other (intubated, mechanically ventilated and sedated) Labs: CBC, BMP 10/17/16 05:25 10/17/16 05:25 INR, PTT INR 1.32 (0.82-1.09) H 10/17/16 05:25 Microbiology 10/16/16 22:00 Urine For Antigen Detection Legionella Antigen - Final 10/16/16 22:00 Urine For Antigen Detection Streptococcus pneumoniae Antigen (M - Final 10/15/16 22:23 Urine - Urine Carrillo Urine Culture - Final NO GROWTH OBTAINED 10/16/16 01:35 Nasopharyngeal Swab Respiratory Virus (PCR) - Preliminary 10/15/16 22:23 Blood - Peripheral Venous Blood Culture - Preliminary NO GROWTH OBTAINED AFTER 24 HOURS, INCUBATION TO CONTINUE FOR 4 DAYS. 10/15/16 22:23 Blood - Peripheral Venous Blood Culture - Preliminary NO GROWTH OBTAINED AFTER 24 HOURS, INCUBATION TO CONTINUE FOR 4 DAYS. Laboratory Tests 10/15/16 10/17/16 10/17/16 23:03 05:25 05:25 WBC 12.8 H Hgb 12.5 Plt Count 156 ABG pH 7.58 H D ABG pCO2 at Pt Temp 38.9 D ABG pO2 at Pt Temp 172.0 H* O2 Delivery Device Mech vent Oxygen Flow Rate 60% Sodium 147 H Potassium 3.5 BUN 14 D Creatinine 0.6 D Phosphorus 3.4 Magnesium 2.1 Total Bilirubin 0.9 D AST 44 H D ALT 63 Alkaline Phosphatase 97 10/17/16 07:25 WBC Hgb Plt Count ABG pH 7.46 H ABG pCO2 at Pt Temp 44.7 D ABG pO2 at Pt Temp 150.0 H D O2 Delivery Device Mec.vent Oxygen Flow Rate 40% Sodium Potassium BUN Creatinine Phosphorus Magnesium Total Bilirubin AST ALT Alkaline Phosphatase Laboratory Tests 10/15/16 10/16/16 22:23 05:10 Troponin I < 0.02 0.03 - ....Imaging Chest X-ray: Image Reviewed EKG: Image Reviewed, Other (NSR 96bpm, LAE, NSST changes. QTc = 487ms) Problem List - Problems (1) Cardiac arrest Code(s): I46.9 - CARDIAC ARREST, CAUSE UNSPECIFIED (2) Pneumonia Code(s): J18.9 - PNEUMONIA, UNSPECIFIED ORGANISM Qualifiers: Pneumonia type: due to unspecified organism Laterality: left Lung location: upper lobe of lung Qualified Code(s): J18.1 - Lobar pneumonia, unspecified organism (3) Respiratory failure requiring intubation Code(s): J96.90 - RESPIRATORY FAILURE, UNSP, UNSP W HYPOXIA OR HYPERCAPNIA (4) ALS (amyotrophic lateral sclerosis) Code(s): G12.21 - AMYOTROPHIC LATERAL SCLEROSIS Assessment/Plan IMP: Advanced ALS Acute respiratory failure, probably multifactorial due to PNA and advanced ALS PAF S/P Cardiopulmonary arrest in setting of acute respiratory failure, with recent echo normal LVEF and negative TnIs this admission REC: 1. PAF: -Continue Eliquis, change to standard BID dosing -Observe heart rate trend on tele now that metoprolol resumed, add or titrate depending on heart rate 2. Acute respiratory failure: -multi factorial, likely due to advanced ALS and PNA -Follow cultures -Vent support -Abx as per Critical Care Team 3. ALS: -Advanced -Would address advanced directive w/ family 4. Cardiopulmonary arrest: -in setting of acute respiratory failure -Normal LVFx -TnIs negative this admission x 2 -Does not appear to be primary cardiac precipitant
[2016-10-17] MEDS: CHLORHEXIDINE GLUCONATE 4% CLEANSER FOR DECOLONIZATION TP SCH (21:25)
[2016-10-17] MEDS: APIXABAN 2.5 MG TABLET PO SCH (21:26)
[2016-10-17] MEDS: SCOPOLAMINE HYDROBROMIDE 1 PATCH PATCH.TD72 TD SCH (21:27)
[2016-10-18] MEDS: VANCOMYCIN 1 GRAM (PRE-DOCKED) 250 ML IVPB SCH (01:04)
[2016-10-18] MEDS: PIPERACILLIN/TAZOB 4.5 GM/100 ML PRE-DOCKED IVPB SCH (01:04)
[2016-10-18 06:51] LABS: BASOPHIL 0.5 % (0-2.0); EOSINOPHIL 0.5 % (0-4.5); MCH 29.8 pg (25.7-33.7); MCHC 32.7 g/dl (32.0-36.0); MEAN CELL VOLUME 91.3 fl (80-96); MEAN PLT VOLUME 10.8 fl (7.5-11.1); NEUTROPHILS 83.9 % (42.8-82.8); PLATELET COUNT 173 K/MM3 (134-434); RDW 14.9 % (11.6-15.6); WHITE BLOOD COUNT 15.2 K/mm3 (4.0-10.0)
[2016-10-18 07:02] LABS: INR 1.64 (0.82-1.09); PROTHROMBIN TIME (PATIENT) 18.2 SEC (9.98-11.88)
[2016-10-18 07:16] LABS: ALBUMIN 2.6 g/dl (3.4-5.0); ANION GAP 10 (8-16); BILIRUBIN,TOTAL 0.8 mg/dL (0.2-1.0); CALCIUM 8.4 mg/dL (8.5-10.1); CO2 32 mmol/L (21-32); CREATININE 0.6 mg/dL (0.55-1.02); GLUCOSE,RANDOM 141 mg/dL (74-106); MAGNESIUM 2.2 mg/dL (1.8-2.4); PHOSPHOROUS 2.6 mg/dL (2.5-4.9); SGOT/AST 31 U/L (15-37); SGPT/ALT 50 U/L (12-78); TOT PROT 6.2 g/dl (6.4-8.2)
[2016-10-18 07:17] LABS: ALK PHOS 117 U/L (45-117)
--- NOTE | 2016-10-18 07:22 | PN ---
Progress Note, Physician Chief Complaint: ID Vancomycin Zosyn day 2 empiric for ? Pneumonia Remains intubated - Current Medication List Current Medications: Active Medications Apixaban (Eliquis -) 5 mg PO BID [facility] Last Admin: 10/17/16 21:26 Dose: 5 mg Chlorhexidine Gluconate (Hibiclens For Decolonization -) 1 applic TP HS [facility] Last Admin: 10/17/16 21:25 Dose: 1 applic Chlorhexidine Gluconate (Peridex -) 15 ml MM BID [facility] Last Admin: 10/17/16 21:27 Dose: 15 ml Vancomycin HCl (Vancomycin (Pre-Docked)) 250 mls @ 166.667 mls/hr IVPB Q12H [facility] Last Admin: 10/18/16 01:04 Dose: 166.667 mls/hr Famotidine/Sodium Chloride (Pepcid 20 Mg Premixed Ivpb -) 50 mls @ 100 mls/hr IVPB BID [facility] Last Admin: 10/17/16 21:25 Dose: 100 mls/hr Lidocaine HCl (Xylocaine 2% Jelly) 1 applic TP Q4H PRN PRN Reason: PAIN Last Admin: 10/16/16 20:51 Dose: 1 applic Methimazole (Tapazole -) 10 mg NGT DAILY [facility] Last Admin: 10/17/16 09:45 Dose: 10 mg Metoprolol Tartrate (Lopressor -) 50 mg PO BID [facility] Last Admin: 10/17/16 21:26 Dose: 50 mg Mirtazapine (Remeron -) 15 mg NGT DAILY [facility] Last Admin: 10/17/16 09:45 Dose: 15 mg Mupirocin (Bactroban Ointment (For Decolonization) -) 1 applic NS BID [facility] Stop: 10/21/16 09:59 Last Admin: 10/17/16 21:27 Dose: 1 applic Piperacillin Sod/Tazobactam Sod (Zosyn 4.5gm Ivpb (Pre-Docked)) 4.5 gm IVPB Q8H -IV [facility] Last Admin: 10/18/16 01:04 Dose: 4.5 gm Scopolamine HBr (Transderm-Scop -) 1 patch TD Q72H [facility] Last Admin: 10/17/16 21:27 Dose: 1 patch - Objective Vital Signs: Vital Signs Temperature 99.7 F H 10/18/16 06:00 Pulse Rate 94 H 10/18/16 06:00 Respiratory Rate 14 10/18/16 06:00 Blood Pressure 132/82 10/18/16 06:00 O2 Sat by Pulse Oximetry (%) 100 10/17/16 20:30 Constitutional: Yes: No Distress, Other (Vent) Cardiovascular: Yes: Regular Rate and Rhythm, S1, S2 Respiratory: Yes: WNL, Regular, CTA Bilaterally. No: Rhonchi Gastrointestinal: Yes: WNL, Normal Bowel Sounds, Soft. No: Tenderness, Tenderness, Rebound Edema: No Labs: CBC, BMP 10/18/16 05:15 INR, PTT INR 1.64 (0.82-1.09) H 10/18/16 05:15 Problem List - Problems (1) ALS (amyotrophic lateral sclerosis) Code(s): G12.21 - AMYOTROPHIC LATERAL SCLEROSIS (2) Cardiac arrest Code(s): I46.9 - CARDIAC ARREST, CAUSE UNSPECIFIED (3) Respiratory failure requiring intubation Code(s): J96.90 - RESPIRATORY FAILURE, UNSP, UNSP W HYPOXIA OR HYPERCAPNIA Assessment/Plan Microbiology 10/16/16 22:00 Urine For Antigen Detection Legionella Antigen - Final 10/16/16 22:00 Urine For Antigen Detection Streptococcus pneumoniae Antigen (M - Final 10/15/16 22:23 Urine - Urine Carrillo Urine Culture - Final NO GROWTH OBTAINED 10/16/16 01:35 Nasopharyngeal Swab Respiratory Virus (PCR) - Preliminary 10/15/16 22:23 Blood - Peripheral Venous Blood Culture - Preliminary NO GROWTH OBTAINED AFTER 48 HOURS, INCUBATION TO CONTINUE FOR 3 DAYS. 10/15/16 22:23 Blood - Peripheral Venous Blood Culture - Preliminary NO GROWTH OBTAINED AFTER 48 HOURS, INCUBATION TO CONTINUE FOR 3 DAYS. Laboratory Tests 10/17/16 10/18/16 10/18/16 05:25 05:15 05:15 WBC 15.2 H Hgb 12.7 Plt Count 173 INR 1.64 H BUN 14 D Creatinine 0.6 D Assessment Cardiopulmonary arrest Respiratory failure ALS Atrial fibrillation Low grade fever/ leukocytosis ? pulmonary related CXR not impressive for PNA Plan Lets stop antibiotics and observe for the time being Margot LOVELACE
[2016-10-18 07:39] LABS: ARTERIAL BLD GAS O2 SATURATION 97.6 % (90-98.9); ARTERIAL BLOOD GAS BASE EXCESS 9.1 meq/l (-2-2); ARTERIAL BLOOD GAS HCO3 33.3 meq/L (22-26); ARTERIAL BLOOD GAS PO2 84.6 mmHg (80-100); ARTERIAL BLOOD GAS pH 7.49 (7.35-7.45)
[2016-10-18 07:41] LABS: ALLENS TEST POSITIVE; ART PUNCT SITE RIGHT RADIAL; LPM/O2% 40%; MECH. VENT. yes; PT. ON O2? yes
[2016-10-18 07:42] LABS: VENT RATE 12
--- NOTE | 2016-10-18 07:54 | PN ---
Physical Exam: SUBJECTIVE: Patient seen by me this AM - Uptrending WBC (12.8 ->15.2). Borderline fever since admission. - No longer sedated. Remains mechanically ventilated. - Cardiopulmonary arrest yesterday. Rapid afib w/ rvr. Stabilized now. - Receiving TPN for nutrition. Other updates: - All cultures (sputum, blood urine) negative - PNA urine ag neg - HypoK OBJECTIVE: Vital Signs Period Temp Pulse Resp BP Sys/Hatch Pulse Ox Last 24 Hr 99 F-100.5 F 74-160 12-19 121-146/80-97 100-100 GENERAL: Awake, intubated, unable to converse with interviewer but could answer simple questions. Laying in bed. HEAD: Normal with no signs of trauma. EYES: Pupils constricted, minimally reactive to light. sclera anicteric, conjunctiva clear. No lid lag. EARS, NOSE, THROAT: Ears normal, nares patent, oropharynx clear without exudates. Dried blood on lips. Moist mucous membranes. NECK: supple without lymphadenopathy, JVD, or masses. LUNGS: Anterior chest exam performed. Still w/ decreased breath sounds at bases bilaterally. No wheezes, and no crackles. No accessory muscle use. HEART: Regular rate and rhythm, normal S1 and S2 without murmur, rub or gallop. ABDOMEN: Soft, not distended, normoactive bowel sounds, no masses. No hepatomegaly or splenomegaly. MUSCULOSKELETAL: No bony deformities or tenderness. UPPER EXTREMITIES: 2+ pulses, warm, well-perfused. No cyanosis. No clubbing. Cap refill <2 seconds. No peripheral edema. LOWER EXTREMITIES: 2+ pulses, warm, well-perfused. No peripheral edema. No decubitus ulcers noted. SKIN: Warm, dry, normal turgor, no rashes or lesions noted. Laboratory Results - last 24 hr CBC, BMP 10/18/16 05:15 10/18/16 05:15 10/17/16 10/17/16 10/18/16 14:10 17:51 05:15 WBC 15.2 H RBC 4.25 Hgb 12.7 Hct 38.8 MCV 91.3 MCH 29.8 MCHC 32.7 RDW 14.9 Plt Count 173 MPV 10.8 D Neutrophils % 83.9 H Lymphocytes % 9.4 Monocytes % 5.7 Eosinophils % 0.5 Basophils % 0.5 INR Puncture Site ABG pH ABG pCO2 at Pt Temp ABG pO2 at Pt Temp ABG HCO3 ABG O2 Sat (Measured) ABG O2 Content ABG Base Excess Corwin Test O2 Delivery Device Oxygen Flow Rate Vent Mode Vent Rate Mechanical Rate PEEP Pressure Support Vent Sodium Chloride Carbon Dioxide Anion Gap BUN Creatinine Creat Clearance w eGFR POC Glucometer 82.74455 97.83110 Random Glucose Calcium Phosphorus Magnesium Total Bilirubin AST ALT Alkaline Phosphatase Total Protein Albumin 10/18/16 10/18/16 10/18/16 05:15 05:15 07:35 WBC RBC Hgb Hct MCV MCH MCHC RDW Plt Count MPV Neutrophils % Lymphocytes % Monocytes % Eosinophils % Basophils % INR 1.64 H Puncture Site Right radial ABG pH 7.49 H ABG pCO2 at Pt Temp 44.0 ABG pO2 at Pt Temp 84.6 D ABG HCO3 33.3 H ABG O2 Sat (Measured) 97.6 ABG O2 Content 16.4 ABG Base Excess 9.1 H Corwin Test Positive O2 Delivery Device mechanical vent Oxygen Flow Rate 40% Vent Mode a/c Vent Rate 12 Mechanical Rate yes PEEP 5.0 Pressure Support Vent 350ml Sodium 144 Chloride 102 Carbon Dioxide 32 Anion Gap 10 BUN 14 Creatinine 0.6 Creat Clearance w eGFR > 60 POC Glucometer Random Glucose 141 H D Calcium 8.4 L Phosphorus 2.6 D Magnesium 2.2 Total Bilirubin 0.8 AST 31 D ALT 50 D Alkaline Phosphatase 117 D Total Protein 6.2 L Albumin 2.6 L Microbiology 10/15/16 22:23 Blood - Peripheral Venous Blood Culture - Preliminary NO GROWTH OBTAINED AFTER 48 HOURS, INCUBATION TO CONTINUE FOR 3 DAYS. 10/15/16 22:23 Blood - Peripheral Venous Blood Culture - Preliminary NO GROWTH OBTAINED AFTER 48 HOURS, INCUBATION TO CONTINUE FOR 3 DAYS. 10/16/16 22:00 Sputum - Endotrachea Suction/Ventilator Gram Stain - Final 10/15/16 22:23 Urine - Urine Carrillo Urine Culture - Final NO GROWTH OBTAINED 10/16/16 22:00 Urine For Antigen Detection Legionella Antigen - Final 10/16/16 22:00 Urine For Antigen Detection Streptococcus pneumoniae Antigen (M - Final 10/16/16 01:35 Nasopharyngeal Swab Respiratory Virus (PCR) - Preliminary Active Medications Generic Name Dose Route Start Last Admin Trade Name Freq PRN Reason Stop Dose Admin Apixaban 5 mg 10/17/16 22:00 10/17/16 21:26 Eliquis - PO 5 mg BID [facility] Administration Chlorhexidine Gluconate 1 applic 10/16/16 22:00 10/17/16 21:25 Hibiclens For Decolonization - TP 1 applic HS [facility] Administration Chlorhexidine Gluconate 15 ml 10/16/16 12:15 10/17/16 21:27 Peridex - MM 15 ml BID [facility] Administration Famotidine/Sodium Chloride 50 mls @ 100 mls/hr 10/16/16 10:00 10/17/16 21:25 Pepcid 20 Mg Premixed Ivpb - IVPB 100 mls/hr BID [facility] Administration Lidocaine HCl 1 applic 10/16/16 20:38 10/16/16 20:51 Xylocaine 2% Jelly TP 1 applic Q4H PRN Administration PAIN Methimazole 10 mg 10/16/16 10:00 10/17/16 09:45 Tapazole - NGT 10 mg DAILY [facility] Administration Metoprolol Tartrate 50 mg 10/17/16 12:15 10/17/16 21:26 Lopressor - PO 50 mg BID [facility] Administration Mirtazapine 15 mg 10/16/16 10:00 10/17/16 09:45 Remeron - NGT 15 mg DAILY [facility] Administration Mupirocin 1 applic 10/16/16 10:00 10/17/16 21:27 Bactroban Ointment (For Decolonization) - NS 10/21/16 09:59 1 applic BID [facility] Administration Scopolamine HBr 1 patch 10/17/16 19:15 10/17/16 21:27 Transderm-Scop - TD 1 patch Q72H [facility] Administration ASSESSMENT/PLAN: ssessment: 56 yo woman w/ pmh of ALS, pA-fib, chronic hypercapneic respiratory failure, HTN , hyperthyroidism, who was BIBEMS from [place] due to acute respiratory arrest. Pt w / continued mild fever, uptrending WBC count. All cultures negative to date. CXR today not suggestive of PNA. Recent CP arrest, still intubated w/ no sedation. Clinical picture more consistent with acute respiratory failure secondary to progression of ALS vs. PNA. Plan to withdraw abx at this time and observe. Plan: Suspected PNA - Hold abx for now and observe - all cultures negative to date - urinary legionella, pneumococcal Ag neg - Serial CBCs - Trend fever curve, WBCs Roman Mena MD, PGY1 Plan discussed w/ attending, Dr. Frost Dispo: We will continue to follow the patient. Thank you for this consultative opportunity. Problem List - Problems (1) ALS (amyotrophic lateral sclerosis) Code(s): G12.21 - AMYOTROPHIC LATERAL SCLEROSIS (2) Respiratory failure Code(s): J96.90 - RESPIRATORY FAILURE, UNSP, UNSP W HYPOXIA OR HYPERCAPNIA Qualifiers: Chronicity: acute Respiratory failure complication: hypoxia and hypercapnia Qualified Code(s): J96.01 - Acute respiratory failure with hypoxia (3) Pneumonia Code(s): J18.9 - PNEUMONIA, UNSPECIFIED ORGANISM Qualifiers: Pneumonia type: due to unspecified organism Laterality: left Lung location: upper lobe of lung Qualified Code(s): J18.1 - Lobar pneumonia, unspecified organism Visit type - Emergency Visit Emergency Visit: No - New Patient This patient is new to me today: No - Critical Care Critical Care patient: No
--- NOTE | 2016-10-18 08:03 | PN ---
Progress Note, Physician Chief Complaint: intubated on A/C mode 40%FIO2 In Sinus - Current Medication List Current Medications: Active Medications Apixaban (Eliquis -) 5 mg PO BID [facility] Last Admin: 10/17/16 21:26 Dose: 5 mg Chlorhexidine Gluconate (Hibiclens For Decolonization -) 1 applic TP HS [facility] Last Admin: 10/17/16 21:25 Dose: 1 applic Chlorhexidine Gluconate (Peridex -) 15 ml MM BID [facility] Last Admin: 10/17/16 21:27 Dose: 15 ml Famotidine/Sodium Chloride (Pepcid 20 Mg Premixed Ivpb -) 50 mls @ 100 mls/hr IVPB BID [facility] Last Admin: 10/17/16 21:25 Dose: 100 mls/hr Lidocaine HCl (Xylocaine 2% Jelly) 1 applic TP Q4H PRN PRN Reason: PAIN Last Admin: 10/16/16 20:51 Dose: 1 applic Methimazole (Tapazole -) 10 mg NGT DAILY [facility] Last Admin: 10/17/16 09:45 Dose: 10 mg Metoprolol Tartrate (Lopressor -) 50 mg PO BID [facility] Last Admin: 10/17/16 21:26 Dose: 50 mg Mirtazapine (Remeron -) 15 mg NGT DAILY [facility] Last Admin: 10/17/16 09:45 Dose: 15 mg Mupirocin (Bactroban Ointment (For Decolonization) -) 1 applic NS BID [facility] Stop: 10/21/16 09:59 Last Admin: 10/17/16 21:27 Dose: 1 applic Scopolamine HBr (Transderm-Scop -) 1 patch TD Q72H [facility] Last Admin: 10/17/16 21:27 Dose: 1 patch - Objective Vital Signs: Vital Signs Temperature 99.7 F H 10/18/16 06:00 Pulse Rate 94 H 10/18/16 06:00 Respiratory Rate 14 10/18/16 07:22 Blood Pressure 132/82 10/18/16 06:00 O2 Sat by Pulse Oximetry (%) 100 10/17/16 20:30 HENT: Yes: Other (+ ETT, opens eyes to name) Cardiovascular: Yes: Regular Rate and Rhythm Respiratory: Yes: Other (= breath sounds bilaterally) Gastrointestinal: Yes: Soft Edema: No Labs: CBC, BMP 10/18/16 05:15 10/18/16 05:15 INR, PTT INR 1.64 (0.82-1.09) H 10/18/16 05:15 Laboratory Tests 10/18/16 10/18/16 10/18/16 05:15 05:15 07:35 WBC 15.2 H Hgb 12.7 Plt Count 173 ABG pH 7.49 H ABG pCO2 at Pt Temp 44.0 ABG pO2 at Pt Temp 84.6 D Sodium 144 Potassium Pending BUN 14 Creatinine 0.6 Phosphorus 2.6 D Magnesium 2.2 ALT 50 D Alkaline Phosphatase 117 D - ....Imaging EKG: Image Reviewed Problem List - Problems (1) Cardiac arrest Code(s): I46.9 - CARDIAC ARREST, CAUSE UNSPECIFIED (2) Pneumonia Code(s): J18.9 - PNEUMONIA, UNSPECIFIED ORGANISM Qualifiers: Pneumonia type: due to unspecified organism Laterality: left Lung location: upper lobe of lung Qualified Code(s): J18.1 - Lobar pneumonia, unspecified organism (3) Respiratory failure requiring intubation Code(s): J96.90 - RESPIRATORY FAILURE, UNSP, UNSP W HYPOXIA OR HYPERCAPNIA (4) ALS (amyotrophic lateral sclerosis) Code(s): G12.21 - AMYOTROPHIC LATERAL SCLEROSIS Assessment/Plan IMP: Advanced ALS Acute respiratory failure, probably multifactorial due to PNA and advanced ALS PAF S/P Cardiopulmonary arrest in setting of acute respiratory failure, with recent echo normal LVEF and negative TnIs this admission REC: 1. PAF: -Continue Eliquis -Remains in sinus since yesterday late afternoon 2. Acute respiratory failure: -multi factorial, likely due to advanced ALS and PNA -Follow cultures -Vent support -Abx as per Critical Care Team 3. ALS: -Advanced -Would address advanced directive w/ family 4. Cardiopulmonary arrest: -in setting of acute respiratory failure -Normal LVFx -TnIs negative this admission x 2 -Does not appear to be primary cardiac precipitant
[2016-10-18] MEDS ORDERED: POTASSIUM CHLORIDE ORAL LIQUID 20 MEQ/15 ML PO ONE ×2 (09:00→13:00)
[2016-10-18] MEDS ORDERED: PT OWN MED DRAWER 7, Y5N ONE (09:12)
[2016-10-18] MEDS: METOPROLOL TARTRATE 50 MG TABLET (FP) PO SCH ×2 (09:15→21:14)
[2016-10-18] MEDS: APIXABAN 2.5 MG TABLET PO SCH ×2 (09:15→21:14)
[2016-10-18] MEDS: FAMOTIDINE 20 MG/50 ML IVPB 50 ML IVPB SCH ×2 (09:15→21:14)
[2016-10-18] MEDS: CHLORHEXIDINE GLUCONATE 0.12% 15ML CUP MM SCH ×2 (09:15→21:14)
[2016-10-18] MEDS: MIRTAZAPINE 15 MG TABLET (FP) NGT SCH (09:16)
[2016-10-18] MEDS: METHIMAZOLE 10 MG TABLET (FP) NGT SCH (09:16)
--- NOTE | 2016-10-18 10:58 | PN ---
Physical Exam: SUBJECTIVE: Patient seen and examined at bedside in ICU. Pt now awake and able to follow basic commands but unable to nod yes or no when asked questions about herself. No acute events overnight. OBJECTIVE: Vital Signs Temperature 100.0 F H 10/18/16 10:00 Pulse Rate 82 10/18/16 10:00 Respiratory Rate 15 10/18/16 10:05 Blood Pressure 119/88 10/18/16 10:00 O2 Sat by Pulse Oximetry (%) 100 10/18/16 08:00 GENERAL: intubated, awake, alert, following basic commands HEAD: Normal with no signs of trauma. EYES: Pupils equal, round and reactive to light EARS, NOSE, THROAT: Ears normal, nares patent LUNGS: Auscultated anteriorly - CTA B/L HEART: Regular rate and rhythm, normal S1 and S2 ABDOMEN: Soft, nontender, not distended, normoactive bowel sounds LOWER EXTREMITIES: 2+ pulses, warm, no peripheral edema. NEUROLOGICAL: following basic commands (close/open eyes, sticks out tongue) SKIN: dry Laboratory Results - last 24 hr 10/17/16 10/17/16 10/18/16 14:10 17:51 05:15 WBC 15.2 H RBC 4.25 Hgb 12.7 Hct 38.8 MCV 91.3 MCH 29.8 MCHC 32.7 RDW 14.9 Plt Count 173 MPV 10.8 D Neutrophils % 83.9 H Lymphocytes % 9.4 Monocytes % 5.7 Eosinophils % 0.5 Basophils % 0.5 INR Puncture Site ABG pH ABG pCO2 at Pt Temp ABG pO2 at Pt Temp ABG HCO3 ABG O2 Sat (Measured) ABG O2 Content ABG Base Excess Corwin Test O2 Delivery Device Oxygen Flow Rate Vent Mode Vent Rate Mechanical Rate PEEP Pressure Support Vent Sodium Potassium Chloride Carbon Dioxide Anion Gap BUN Creatinine Creat Clearance w eGFR POC Glucometer 82.95079 97.81147 Random Glucose Calcium Phosphorus Magnesium Total Bilirubin AST ALT Alkaline Phosphatase Total Protein Albumin 10/18/16 10/18/16 10/18/16 05:15 05:15 07:35 WBC RBC Hgb Hct MCV MCH MCHC RDW Plt Count MPV Neutrophils % Lymphocytes % Monocytes % Eosinophils % Basophils % INR 1.64 H Puncture Site Right radial ABG pH 7.49 H ABG pCO2 at Pt Temp 44.0 ABG pO2 at Pt Temp 84.6 D ABG HCO3 33.3 H ABG O2 Sat (Measured) 97.6 ABG O2 Content 16.4 ABG Base Excess 9.1 H Corwin Test Positive O2 Delivery Device mechanical vent Oxygen Flow Rate 40% Vent Mode a/c Vent Rate 12 Mechanical Rate yes PEEP 5.0 Pressure Support Vent 350ml Sodium 144 Potassium 2.8 L* Chloride 102 Carbon Dioxide 32 Anion Gap 10 BUN 14 Creatinine 0.6 Creat Clearance w eGFR > 60 POC Glucometer Random Glucose 141 H D Calcium 8.4 L Phosphorus 2.6 D Magnesium 2.2 Total Bilirubin 0.8 AST 31 D ALT 50 D Alkaline Phosphatase 117 D Total Protein 6.2 L Albumin 2.6 L Imaging: CXR: Dense L base. No significant change compared to previous CXR. Active Medications Generic Name Dose Route Start Last Admin Trade Name Freq PRN Reason Stop Dose Admin Apixaban 5 mg 10/17/16 22:00 10/18/16 09:15 Eliquis - PO 5 mg BID [facility] Administration Chlorhexidine Gluconate 1 applic 10/16/16 22:00 10/17/16 21:25 Hibiclens For Decolonization - TP 1 applic HS [facility] Administration Chlorhexidine Gluconate 15 ml 10/16/16 12:15 10/18/16 09:15 Peridex - MM 15 ml BID [facility] Administration Famotidine/Sodium Chloride 50 mls @ 100 mls/hr 10/16/16 10:00 10/18/16 09:15 Pepcid 20 Mg Premixed Ivpb - IVPB 100 mls/hr BID [facility] Administration Potassium Chloride 100 mls @ 100 mls/hr 10/18/16 11:00 Potassium Chloride 10 Meq Premix Ivpb - IVPB 10/18/16 13:59 Q60M [facility] Lidocaine HCl 1 applic 10/16/16 20:38 10/16/16 20:51 Xylocaine 2% Jelly TP 1 applic Q4H PRN Administration PAIN Methimazole 10 mg 10/16/16 10:00 10/18/16 09:16 Tapazole - NGT 10 mg DAILY [facility] Administration Metoprolol Tartrate 50 mg 10/17/16 12:15 10/18/16 09:15 Lopressor - PO 50 mg BID [facility] Administration Mirtazapine 15 mg 10/16/16 10:00 10/18/16 09:16 Remeron - NGT 15 mg DAILY [facility] Administration Mupirocin 1 applic 10/16/16 10:00 10/17/16 21:27 Bactroban Ointment (For Decolonization) - NS 10/21/16 09:59 1 applic BID [facility] Administration Potassium Chloride 40 meq 10/18/16 13:00 Potassium Chloride Oral Liquid PO 10/18/16 13:01 ONCE ONE Scopolamine HBr 1 patch 10/17/16 19:15 10/17/16 21:27 Transderm-Scop - TD 1 patch Q72H [facility] Administration ASSESSMENT/PLAN: 56 y/o F with PMH of ALS, chronic hypercapnic resp failure, HTN, hyperthyroidism presented to ER via EMS from [place] for SOB. Admitted to ICU with respiratory failure requiring intubation s/p cardiac arrest with ROSC in ER. -Neuro -following basic commands, awake -sedation to be used is propofol or versed pushes if sedation needed -ALS -Neuro on board -Pulm -Acute respiratory failure secondary to possible aspiration pna vs progressive ALS -OFF abx now, as per ID, will monitor, still w/ low grade fevers -f/u cultures, respiratory virus panel, BCx [id number] -UAg for PNA negative -Intubated on vent -wean trials, currently on CPAP with PSV of 10, PEEP 5, FiO2 40%, tolerating well for last 30 min, will continue to monitor with hopes of extubation. Will change back to A/C mode if pt not tolerating well on CPAP. -ABG in AM if intubated -ID on board -C/V -S/P Cardiac arrest on 10/16/16 in ER w/ROSC -trops neg x2 -Paroxysmal A-fib -c/w eliquis 5mg NGT daily -c/w lopressor 50 mg po bid -Cardio consulted -Endocrine -Hyperthyroidism -c/w methimazole 10 mg NGT -Psych -MDD -c/w remeron 15 mg NGT qd -Prophylaxis -DVT: eliquis 5 mg NGT daily -GI: Pepcid IV 20 mg BID -FEN -Off fluids -Hypernatremia - resolved. Monitor lytes -Hypokalemia - repleted with Potassium Chloride 40 meq oral liquid x2 (at 9am and 1pm) and 10meq IV x3 - monitor -Feeds as per dietary recommendations: Osmolite 1.2 Volume based feeds. Initiate feeds at 20-30cc/hr, increase by 10cc q 4-6 hours to 63cc/hr, Target volume: 1500ml, 1800 kcals, 83g protein, 1230ml water. -Free water at 50 cc -Dispo: -Continue to monitor in the ICU Problem List - Problems (1) Pneumonia Code(s): J18.9 - PNEUMONIA, UNSPECIFIED ORGANISM Qualifiers: Qualified Code(s): J18.1 - Lobar pneumonia, unspecified organism (2) ALS (amyotrophic lateral sclerosis) Code(s): G12.21 - AMYOTROPHIC LATERAL SCLEROSIS (3) Hyperthyroidism Code(s): E05.90 - THYROTOXICOSIS, UNSP WITHOUT THYROTOXIC CRISIS OR STORM (4) Hypokalemia Code(s): E87.6 - HYPOKALEMIA (5) Paroxysmal atrial fibrillation Code(s): I48.0 - PAROXYSMAL ATRIAL FIBRILLATION (6) Respiratory failure Code(s): J96.90 - RESPIRATORY FAILURE, UNSP, UNSP W HYPOXIA OR HYPERCAPNIA Qualifiers: Qualified Code(s): J96.01 - Acute respiratory failure with hypoxia Visit type - Emergency Visit Emergency Visit: Yes ED Registration Date: 10/15/16 Care time: The patient presented to the Emergency Department on the above date and was hospitalized for further evaluation of their emergent condition. - New Patient This patient is new to me today: No - Critical Care Critical Care patient: Yes Total Critical Care Time (in minutes): 35 Critical Care Statement: The care of this patient involved high complexity decision making to prevent further life threatening deterioration of the patient 's condition and/or to evalute & treat vital organ system(s) failure or risk of failure.
[2016-10-18] MEDS: KCL 10 MEQ IVPB 100 ML IVPB SCH ×3 (11:00→13:00)
--- NOTE | 2016-10-18 11:10 | PN ---
Teaching Attending Note Name of Resident: Kaiser Escudero ATTENDING PHYSICIAN STATEMENT I saw and evaluated the patient. I reviewed the resident's note and discussed the case with the resident. I agree with the resident's findings and plan as documented. SUBJECTIVE: Pt seen and examined in the ICU. Remains intubated, more awake off sedation. Attempts to follow commands. Intermittent low grade temps. OBJECTIVE: Last Vital Signs Temp Pulse Resp BP Pulse Ox 100.0 F H 82 15 119/88 100 10/18/16 10:00 10/18/16 10:00 10/18/16 10:05 10/18/16 10:00 10/18/16 08:00 Intake & Output 10/15/16 10/16/16 10/17/16 10/18/16 23:59 23:59 23:59 23:59 Intake Total 2030 1975 1310 Output Total 900 1800 450 Balance 1130 175 860 Weight 175 lb 157 lb 6.561 oz 160 lb 8 oz 165 lb 1.6 oz Gen: intubated, awake Heart: RRR Lung: decreased breath sounds at the bases Abd: soft, nontender Ext: no edema CBC, BMP 10/18/16 05:15 10/18/16 05:15 Active Medications Apixaban (Eliquis -) 5 mg PO BID [facility] Last Admin: 10/18/16 09:15 Dose: 5 mg Chlorhexidine Gluconate (Hibiclens For Decolonization -) 1 applic TP HS [facility] Last Admin: 10/17/16 21:25 Dose: 1 applic Chlorhexidine Gluconate (Peridex -) 15 ml MM BID [facility] Last Admin: 10/18/16 09:15 Dose: 15 ml Famotidine/Sodium Chloride (Pepcid 20 Mg Premixed Ivpb -) 50 mls @ 100 mls/hr IVPB BID [facility] Last Admin: 10/18/16 09:15 Dose: 100 mls/hr Potassium Chloride (Potassium Chloride 10 Meq Premix Ivpb -) 100 mls @ 100 mls/ hr IVPB Q60M [facility] Stop: 10/18/16 13:59 Lidocaine HCl (Xylocaine 2% Jelly) 1 applic TP Q4H PRN PRN Reason: PAIN Last Admin: 10/16/16 20:51 Dose: 1 applic Methimazole (Tapazole -) 10 mg NGT DAILY [facility] Last Admin: 10/18/16 09:16 Dose: 10 mg Metoprolol Tartrate (Lopressor -) 50 mg PO BID [facility] Last Admin: 10/18/16 09:15 Dose: 50 mg Mirtazapine (Remeron -) 15 mg NGT DAILY [facility] Last Admin: 10/18/16 09:16 Dose: 15 mg Mupirocin (Bactroban Ointment (For Decolonization) -) 1 applic NS BID [facility] Stop: 10/21/16 09:59 Last Admin: 10/17/16 21:27 Dose: 1 applic Potassium Chloride (Potassium Chloride Oral Liquid) 40 meq PO ONCE ONE Stop: 10/18/16 13:01 Scopolamine HBr (Transderm-Scop -) 1 patch TD Q72H [facility] Last Admin: 10/17/16 21:27 Dose: 1 patch ASSESSMENT AND PLAN: Acute on Chronic Hypoxic and Hypercapneic Respiratory Failure s/p Cardiac Arrest likely from Respiratory Failure Pneumonia Sepsis Lactic Acidosis resolved Advanced ALS Paroxysmal Atrial Fibrillation with RVR HTN Hyperthyroidism - continue antibiotics - f/u cultures - rate control with metoprolol - continue anticoagulation - replete lytes - enteral feeds - spontaneous breathing trials as tolerated - DVT/GI prophylaxis - continue discussions regarding goals of care, advanced directives critical care time spent in reviewing chart, evaluating patient and formulating plan 36 min
[2016-10-18] MEDS: MUPIROCIN 2% TOPICAL OINTMENT FOR DECOLONIZATION NS SCH ×2 (11:52→21:14)
--- NOTE | 2016-10-18 13:42 | PN ---
Teaching Attending Note Name of Resident: Manjula Delvalle ATTENDING PHYSICIAN STATEMENT I saw and evaluated the patient. I reviewed the resident's note and discussed the case with the resident. I agree with the resident's findings and plan as documented. SUBJECTIVE:alert, follow simple commands OBJECTIVE: Last Vital Signs Temp Pulse Resp BP Pulse Ox 99.4 F 88 14 147/90 100 10/18/16 12:00 10/18/16 12:00 10/18/16 12:26 10/18/16 12:00 10/18/16 08:00 General alert. PERRLA CV S1 S2 RRR no murmur/rub/gallop lungs CTA B/L no crackles or wheezing anteriorly Abdomen soft NT/ND Extremities no pedal edema ASSESSMENT AND PLAN: 56yo F with PMH ALS, chronic hypercapnic respiratory failure, HTN, hyperthyroid , afib and dyslipidemia brought into the ER in acute respiratory distress and intubated in the field with cardiac arrest in the ER 1. s/p cardiac arrest- likely due to hypoxia, vs electrolyte abnormality however can not r/o cardiac etiology as newly dx afib. poor acoustic windows on echo cannot r/o wall monitor abnormalities. will need to compare to prior echo. the one done earlier this month appears to be of poor quality. further workup per cardio. can be deferred for now. no intermediate workup require. 2. Acute on Chronic hypercapnic respiratory failure- likely due to progression of ALS vs HCAP. low grade fevers Tm 100.3. did not tolerate cpap trial this am due to tachypnea. will cont daily cpap trials. sedation vacation. abx d/c by ID to monitor off abx as repeat CXR was negative for acute infiltrate. vent managment per ICU team. cont TF 3. Lactic acidosis- likely due to chest compresssions. resolved 4. Hypokalemia- Kcl 10meq 5. Hypophosphatemia- resolved 6. Hyperthyroidism- TSH WNL. cont methimazole 7. HTN- currently normotensive. hold oral agents 8. Afib- currently rate controlled. on eliquis 9. DVT ppx- eliquis 10. cont MICU monitoring CC TIME 38 minutes. The care of this patient involved high complexity decision making to prevent further life threatening deterioration of the patient's condition and/or to evalute & treat vital organ system(s) failure or risk of failure.
--- NOTE | 2016-10-18 14:09 | PN ---
Physical Exam: SUBJECTIVE: Patient seen and examined at bedside. Responds to commands, eyes open this AM. Pt tolerated CPAP for a few min this morning. OBJECTIVE: Vital Signs Period Temp Pulse Resp BP Sys/Hatch Pulse Ox Last 24 Hr 99.2 F-100.4 F 78-108 12-20 119-166/76-97 100-100 GENERAL: The patient is awake, on vent HEAD: Normal with no signs of trauma. EYES: PERRL, extraocular movements intact, sclera anicteric, conjunctiva clear. NECK: Trachea midline, supple. LUNGS: Breath sounds equal, clear to auscultation bilaterally, no wheezes, no crackles, no accessory muscle use. HEART: Regular rate and rhythm, S1, S2 without murmur, rub or gallop. ABDOMEN: Soft, nontender, nondistended, normoactive bowel sounds, no guarding, no rebound EXTREMITIES: 2+ posterior tibial pulses, warm, well-perfused, no edema. NEUROLOGICAL: difficult to assess, pt responds to verbal commands Laboratory Results - last 24 hr 10/17/16 10/17/16 10/17/16 14:10 17:51 21:24 WBC RBC Hgb Hct MCV MCH MCHC RDW Plt Count MPV Neutrophils % Lymphocytes % Monocytes % Eosinophils % Basophils % INR Puncture Site ABG pH ABG pCO2 at Pt Temp ABG pO2 at Pt Temp ABG HCO3 ABG O2 Sat (Measured) ABG O2 Content ABG Base Excess Corwin Test O2 Delivery Device Oxygen Flow Rate Vent Mode Vent Rate Mechanical Rate PEEP Pressure Support Vent Sodium Potassium Chloride Carbon Dioxide Anion Gap BUN Creatinine Creat Clearance w eGFR POC Glucometer 82.24698 97.40505 132.25205 Random Glucose Calcium Phosphorus Magnesium Total Bilirubin AST ALT Alkaline Phosphatase Total Protein Albumin 10/18/16 10/18/16 10/18/16 05:15 05:15 05:15 WBC 15.2 H RBC 4.25 Hgb 12.7 Hct 38.8 MCV 91.3 MCH 29.8 MCHC 32.7 RDW 14.9 Plt Count 173 MPV 10.8 D Neutrophils % 83.9 H Lymphocytes % 9.4 Monocytes % 5.7 Eosinophils % 0.5 Basophils % 0.5 INR 1.64 H Puncture Site ABG pH ABG pCO2 at Pt Temp ABG pO2 at Pt Temp ABG HCO3 ABG O2 Sat (Measured) ABG O2 Content ABG Base Excess Corwin Test O2 Delivery Device Oxygen Flow Rate Vent Mode Vent Rate Mechanical Rate PEEP Pressure Support Vent Sodium 144 Potassium 2.8 L* Chloride 102 Carbon Dioxide 32 Anion Gap 10 BUN 14 Creatinine 0.6 Creat Clearance w eGFR > 60 POC Glucometer Random Glucose 141 H D Calcium 8.4 L Phosphorus 2.6 D Magnesium 2.2 Total Bilirubin 0.8 AST 31 D ALT 50 D Alkaline Phosphatase 117 D Total Protein 6.2 L Albumin 2.6 L 10/18/16 10/18/16 05:50 07:35 WBC RBC Hgb Hct MCV MCH MCHC RDW Plt Count MPV Neutrophils % Lymphocytes % Monocytes % Eosinophils % Basophils % INR Puncture Site Right radial ABG pH 7.49 H ABG pCO2 at Pt Temp 44.0 ABG pO2 at Pt Temp 84.6 D ABG HCO3 33.3 H ABG O2 Sat (Measured) 97.6 ABG O2 Content 16.4 ABG Base Excess 9.1 H Corwin Test Positive O2 Delivery Device mechanical vent Oxygen Flow Rate 40% Vent Mode a/c Vent Rate 12 Mechanical Rate yes PEEP 5.0 Pressure Support Vent 350ml Sodium Potassium Chloride Carbon Dioxide Anion Gap BUN Creatinine Creat Clearance w eGFR POC Glucometer 161.18445 Random Glucose Calcium Phosphorus Magnesium Total Bilirubin AST ALT Alkaline Phosphatase Total Protein Albumin Active Medications Generic Name Dose Route Start Last Admin Trade Name Garlandq PRN Reason Stop Dose Admin Apixaban 5 mg 10/17/16 22:00 10/18/16 09:15 Eliquis - PO 5 mg BID [facility] Administration Chlorhexidine Gluconate 1 applic 10/16/16 22:00 10/17/16 21:25 Hibiclens For Decolonization - TP 1 applic HS [facility] Administration Chlorhexidine Gluconate 15 ml 10/16/16 12:15 10/18/16 09:15 Peridex - MM 15 ml BID [facility] Administration Famotidine/Sodium Chloride 50 mls @ 100 mls/hr 10/16/16 10:00 10/18/16 09:15 Pepcid 20 Mg Premixed Ivpb - IVPB 100 mls/hr BID [facility] Administration Lidocaine HCl 1 applic 10/16/16 20:38 10/16/16 20:51 Xylocaine 2% Jelly TP 1 applic Q4H PRN Administration PAIN Methimazole 10 mg 10/16/16 10:00 10/18/16 09:16 Tapazole - NGT 10 mg DAILY [facility] Administration Metoprolol Tartrate 50 mg 10/17/16 12:15 10/18/16 09:15 Lopressor - PO 50 mg BID [facility] Administration Mirtazapine 15 mg 10/16/16 10:00 10/18/16 09:16 Remeron - NGT 15 mg DAILY [facility] Administration Mupirocin 1 applic 10/16/16 10:00 10/18/16 11:52 Bactroban Ointment (For Decolonization) - NS 10/21/16 09:59 1 applic BID [facility] Administration Scopolamine HBr 1 patch 10/17/16 19:15 10/17/16 21:27 Transderm-Scop - TD 1 patch Q72H [facility] Administration ASSESSMENT/PLAN: 56 yr old F with PMH ALS, chronic hypercapnic resp failure, HTN, HLD, hyperthyroidism, goiter, intubated to ED via EMS due to resp arrest. In ED, pt had cardiac arrest (V tach) for 5 min, was resuscitated and stabilized, admitted to ICU. 1. s/p Cardiac arrest in ED possibly secondary to hypoxia -Troponins negative x2 -Echo: regional wall motion abnormalities can't be ruled out. When compared to Echo 10/10/16: no wall motion abnormalities 2. Lactic acidosis secondary to cardiac arrest-resolved 3. Hypokalemia -KCl 10 mEq given -Will F/u BMP 4. Acute on chronic respiratory failure secondary to possible aspiration pneumonia vs. ALS -Pt intubated, off Versed, on propofol -Today: following basic commands, only tolerated CPAP for a few minutes -Ofirmev 1000 mg IVPB q6 PRN for pain -Vanco and zosyn have been d/c -Sputum cx pending -Osmolite 1.2 volume based feeds 5. Hypernatremia-resolved 6. Paroxysmal afib -Continue Eliquis 5mg NGT daily 7. Past episode of RVR -rate control with lopressor 50mg BID, can titrate down if does not reoccur 8. Hyperthyroidism -Continue Methimazole 9. Major Depressive Disorder -Continue Remeron 10. Palliative care -on board, family has not been in rm -continue discussions on adv directives F/E/N IV NS 75 mls/hr Monitor electrolytes Visit type - Emergency Visit Emergency Visit: No - New Patient This patient is new to me today: No - Critical Care Critical Care patient: Yes Total Critical Care Time (in minutes): 12
[2016-10-18] MEDS ORDERED: ACETAMINOPHEN 325 MG TABLET (FP) ONE (20:33)
[2016-10-18] MEDS: ACETAMINOPHEN 325 MG TABLET (FP) PO PRN (21:13)
[2016-10-18] MEDS: CHLORHEXIDINE GLUCONATE 4% CLEANSER FOR DECOLONIZATION TP SCH (21:13)
[2016-10-19 06:25] LABS: BASOPHIL 0.3 % (0-2.0); EOSINOPHIL 1.6 % (0-4.5); MCH 29.9 pg (25.7-33.7); MCHC 32.7 g/dl (32.0-36.0); MEAN CELL VOLUME 91.6 fl (80-96); MEAN PLT VOLUME 10.6 fl (7.5-11.1); NEUTROPHILS 78.6 % (42.8-82.8); PLATELET COUNT 163 K/MM3 (134-434); RDW 14.9 % (11.6-15.6); WHITE BLOOD COUNT 11.9 K/mm3 (4.0-10.0)
[2016-10-19 06:55] LABS: INR 1.58 (0.82-1.09); PROTHROMBIN TIME (PATIENT) 17.5 SEC (9.98-11.88)
[2016-10-19 07:09] LABS: ALBUMIN 2.2 g/dl (3.4-5.0); ANION GAP 7 (8-16); BILIRUBIN,TOTAL 0.3 mg/dL (0.2-1.0); CO2 31 mmol/L (21-32); CREATININE 0.6 mg/dL (0.55-1.02); GLUCOSE,RANDOM 135 mg/dL (74-106); MAGNESIUM 2.2 mg/dL (1.8-2.4); PHOSPHOROUS 2.3 mg/dL (2.5-4.9); SGOT/AST 17 U/L (15-37); SGPT/ALT 30 U/L (12-78); TOT PROT 5.7 g/dl (6.4-8.2)
[2016-10-19 07:10] LABS: ALK PHOS 108 U/L (45-117)
[2016-10-19 07:21] LABS: ALLENS TEST POSITIVE; ART PUNCT SITE RIGHT RADIAL; ARTERIAL BLD GAS O2 SATURATION 99.4 % (90-98.9); ARTERIAL BLOOD GAS BASE EXCESS 5.5 meq/l (-2-2); ARTERIAL BLOOD GAS HCO3 29.3 meq/L (22-26); LPM/O2% 40; MECH. VENT. YES; PT. ON O2? YES; TYPE OF O2 VENT; VENT RATE 12; VT/PRESS 350
[2016-10-19 07:22] LABS: ARTERIAL BLOOD GAS pH 7.47 (7.35-7.45)
--- NOTE | 2016-10-19 07:42 | PN ---
Progress Note, Physician Chief Complaint: ID Alert on the ventilator Yesterday I stopped her antibiotics Today Temp is normal WBC down Intubated - Current Medication List Current Medications: Active Medications Acetaminophen (Tylenol -) 650 mg PO Q4H PRN PRN Reason: FEVER OR PAIN Last Admin: 10/18/16 21:13 Dose: 650 mg Apixaban (Eliquis -) 5 mg PO BID [facility] Last Admin: 10/18/16 21:14 Dose: 5 mg Chlorhexidine Gluconate (Hibiclens For Decolonization -) 1 applic TP HS [facility] Last Admin: 10/18/16 21:13 Dose: 1 applic Chlorhexidine Gluconate (Peridex -) 15 ml MM BID [facility] Last Admin: 10/18/16 21:14 Dose: 15 ml Famotidine/Sodium Chloride (Pepcid 20 Mg Premixed Ivpb -) 50 mls @ 100 mls/hr IVPB BID [facility] Last Admin: 10/18/16 21:14 Dose: 100 mls/hr Lidocaine HCl (Xylocaine 2% Jelly) 1 applic TP Q4H PRN PRN Reason: PAIN Last Admin: 10/16/16 20:51 Dose: 1 applic Methimazole (Tapazole -) 10 mg NGT DAILY [facility] Last Admin: 10/18/16 09:16 Dose: 10 mg Metoprolol Tartrate (Lopressor -) 50 mg PO BID [facility] Last Admin: 10/18/16 21:14 Dose: 50 mg Mirtazapine (Remeron -) 15 mg NGT DAILY [facility] Last Admin: 10/18/16 09:16 Dose: 15 mg Mupirocin (Bactroban Ointment (For Decolonization) -) 1 applic NS BID [facility] Stop: 10/21/16 09:59 Last Admin: 10/18/16 21:14 Dose: 1 applic Scopolamine HBr (Transderm-Scop -) 1 patch TD Q72H [facility] Last Admin: 10/17/16 21:27 Dose: 1 patch - Objective Vital Signs: Vital Signs Temperature 99 F 10/19/16 07:27 Pulse Rate 94 H 10/19/16 07:27 Respiratory Rate 18 10/19/16 07:27 Blood Pressure 130/89 10/19/16 07:27 O2 Sat by Pulse Oximetry (%) 99 10/18/16 20:29 Constitutional: Yes: Well Nourished, No Distress, Other (Intubated) Neck: Yes: WNL, Supple Cardiovascular: Yes: Regular Rate and Rhythm, S1, S2 Respiratory: Yes: WNL, Regular, CTA Bilaterally Gastrointestinal: Yes: WNL, Normal Bowel Sounds, Soft. No: Tenderness Labs: CBC, BMP 10/19/16 05:15 10/19/16 05:15 INR, PTT INR 1.58 (0.82-1.09) H 10/19/16 05:15 Problem List - Problems (1) ALS (amyotrophic lateral sclerosis) Code(s): G12.21 - AMYOTROPHIC LATERAL SCLEROSIS (2) Cardiac arrest Code(s): I46.9 - CARDIAC ARREST, CAUSE UNSPECIFIED (3) Respiratory failure requiring intubation Code(s): J96.90 - RESPIRATORY FAILURE, UNSP, UNSP W HYPOXIA OR HYPERCAPNIA Assessment/Plan Microbiology 10/16/16 22:00 Urine For Antigen Detection Legionella Antigen - Final 10/16/16 22:00 Urine For Antigen Detection Streptococcus pneumoniae Antigen (M - Final 10/16/16 22:00 Sputum - Endotrachea Suction/Ventilator Gram Stain - Final 10/15/16 22:23 Urine - Urine Carrillo Urine Culture - Final NO GROWTH OBTAINED 10/16/16 22:00 Sputum - Endotrachea Suction/Ventilator Sputum Culture - Preliminary Yeast Like Organism 10/16/16 01:35 Nasopharyngeal Swab Respiratory Virus (PCR) - Preliminary 10/15/16 22:23 Blood - Peripheral Venous Blood Culture - Preliminary NO GROWTH OBTAINED AFTER 72 HOURS, INCUBATION TO CONTINUE FOR 2 DAYS. 10/15/16 22:23 Blood - Peripheral Venous Blood Culture - Preliminary NO GROWTH OBTAINED AFTER 72 HOURS, INCUBATION TO CONTINUE FOR 2 DAYS. Laboratory Tests 10/19/16 10/19/16 05:15 05:15 WBC 11.9 H Hgb 11.1 D Hct 34.1 Plt Count 163 BUN 17 D Creatinine 0.6 Assessment ALS Cardiac arrest Atrial fibrillation Aspiration suspected initially but chest xray neg No fever Respiratory failure Plan Continue to moniter off antibiotics If afebrile by tomorrow will sign off
--- NOTE | 2016-10-19 08:04 | PN ---
Progress Note, Physician Chief Complaint: intubated on 40% FIO2 Alert continues to track with eyes and opens eyes to name TELE: Remains in NSR - Current Medication List Current Medications: Active Medications Acetaminophen (Tylenol -) 650 mg PO Q4H PRN PRN Reason: FEVER OR PAIN Last Admin: 10/18/16 21:13 Dose: 650 mg Apixaban (Eliquis -) 5 mg PO BID [facility] Last Admin: 10/18/16 21:14 Dose: 5 mg Chlorhexidine Gluconate (Hibiclens For Decolonization -) 1 applic TP HS [facility] Last Admin: 10/18/16 21:13 Dose: 1 applic Chlorhexidine Gluconate (Peridex -) 15 ml MM BID [facility] Last Admin: 10/18/16 21:14 Dose: 15 ml Famotidine/Sodium Chloride (Pepcid 20 Mg Premixed Ivpb -) 50 mls @ 100 mls/hr IVPB BID [facility] Last Admin: 10/18/16 21:14 Dose: 100 mls/hr Lidocaine HCl (Xylocaine 2% Jelly) 1 applic TP Q4H PRN PRN Reason: PAIN Last Admin: 10/16/16 20:51 Dose: 1 applic Methimazole (Tapazole -) 10 mg NGT DAILY [facility] Last Admin: 10/18/16 09:16 Dose: 10 mg Metoprolol Tartrate (Lopressor -) 50 mg PO BID [facility] Last Admin: 10/18/16 21:14 Dose: 50 mg Mirtazapine (Remeron -) 15 mg NGT DAILY [facility] Last Admin: 10/18/16 09:16 Dose: 15 mg Mupirocin (Bactroban Ointment (For Decolonization) -) 1 applic NS BID [facility] Stop: 10/21/16 09:59 Last Admin: 10/18/16 21:14 Dose: 1 applic Scopolamine HBr (Transderm-Scop -) 1 patch TD Q72H [facility] Last Admin: 10/17/16 21:27 Dose: 1 patch - Objective Vital Signs: Vital Signs Temperature 99 F 10/19/16 07:27 Pulse Rate 94 H 10/19/16 07:27 Respiratory Rate 18 10/19/16 07:39 Blood Pressure 130/89 10/19/16 07:27 O2 Sat by Pulse Oximetry (%) 100 10/19/16 07:39 Constitutional: Yes: No Distress Eyes: Yes: Conjunctiva Clear Cardiovascular: Yes: Regular Rate and Rhythm Respiratory: Yes: Other (breath sounds = b/l, no wheezing or rales) Gastrointestinal: Yes: Soft Edema: No Labs: CBC, BMP 10/19/16 05:15 10/19/16 05:15 INR, PTT INR 1.58 (0.82-1.09) H 10/19/16 05:15 Microbiology 10/16/16 22:00 Urine For Antigen Detection Legionella Antigen - Final 10/16/16 22:00 Urine For Antigen Detection Streptococcus pneumoniae Antigen (M - Final 10/16/16 22:00 Sputum - Endotrachea Suction/Ventilator Gram Stain - Final 10/16/16 22:00 Sputum - Endotrachea Suction/Ventilator Sputum Culture - Preliminary Yeast Like Organism 10/15/16 22:23 Blood - Peripheral Venous Blood Culture - Preliminary NO GROWTH OBTAINED AFTER 72 HOURS, INCUBATION TO CONTINUE FOR 2 DAYS. 10/15/16 22:23 Blood - Peripheral Venous Blood Culture - Preliminary NO GROWTH OBTAINED AFTER 72 HOURS, INCUBATION TO CONTINUE FOR 2 DAYS. Laboratory Tests 10/19/16 10/19/16 10/19/16 05:15 05:15 07:10 WBC 11.9 H Hgb 11.1 D Plt Count 163 ABG pH 7.47 H ABG pCO2 at Pt Temp 41.2 ABG pO2 at Pt Temp 138.0 H D Oxygen Flow Rate 40 Sodium 143 Potassium 4.0 D Creatinine 0.6 Magnesium 2.2 Total Bilirubin 0.3 D AST 17 D ALT 30 D - ....Imaging EKG: Image Reviewed Problem List - Problems (1) Cardiac arrest Code(s): I46.9 - CARDIAC ARREST, CAUSE UNSPECIFIED (2) Pneumonia Code(s): J18.9 - PNEUMONIA, UNSPECIFIED ORGANISM Qualifiers: Pneumonia type: due to unspecified organism Laterality: left Lung location: upper lobe of lung Qualified Code(s): J18.1 - Lobar pneumonia, unspecified organism (3) Respiratory failure requiring intubation Code(s): J96.90 - RESPIRATORY FAILURE, UNSP, UNSP W HYPOXIA OR HYPERCAPNIA (4) ALS (amyotrophic lateral sclerosis) Code(s): G12.21 - AMYOTROPHIC LATERAL SCLEROSIS Assessment/Plan IMP: Advanced ALS Acute respiratory failure, probably multifactorial due to PNA and advanced ALS PAF S/P Cardiopulmonary arrest in setting of acute respiratory failure, with recent echo normal LVEF and negative TnIs this admission REC: 1. PAF: -Continue Eliquis -Remains in sinus since Saturday (>48 hours) -Continue metoprolol 2. Acute respiratory failure: -multi factorial, likely due to advanced ALS and PNA -Follow cultures -Vent support -ID following 3. ALS: -Advanced -Would address advanced directive w/ family 4. Cardiopulmonary arrest: -in setting of acute respiratory failure -Normal LVFx -TnIs negative this admission x 2 -Not a primary cardiac arrest As patient has maintained NSR for 48hours and is hemodynamically stable and tolerating AC well, will sign off today. Please call again as/if needed. Thanks.
[2016-10-19] MEDS: MIRTAZAPINE 15 MG TABLET (FP) NGT SCH (09:22)
[2016-10-19] MEDS: FAMOTIDINE 20 MG/50 ML IVPB 50 ML IVPB SCH ×2 (09:22→22:55)
[2016-10-19] MEDS: METOPROLOL TARTRATE 50 MG TABLET (FP) PO SCH ×2 (09:22→22:54)
[2016-10-19] MEDS: APIXABAN 2.5 MG TABLET PO SCH ×2 (09:22→22:55)
[2016-10-19] MEDS: CHLORHEXIDINE GLUCONATE 0.12% 15ML CUP MM SCH ×2 (09:22→22:55)
[2016-10-19] MEDS ORDERED: PT OWN MED DRAWER 7, Y5N ONE (09:28)
[2016-10-19] MEDS: METHIMAZOLE 10 MG TABLET (FP) NGT SCH (09:29)
--- NOTE | 2016-10-19 09:30 | PN ---
Physical Exam: SUBJECTIVE: Patient seen and examined by me this AM - Remains intubated on vent. No overnight events per nursing. No major complaints. - WBC downtrending 15.2 -> 11.9 - Sputum cx pos for yeast - Abx held yesterday OBJECTIVE: Vital Signs Period Temp Pulse Resp BP Sys/Hatch Pulse Ox Last 24 Hr 98.2 F-100.3 F 82-106 12-20 99-166/67-93 99-100 ENERAL: Awake, intubated, unable to converse with interviewer but could answer simple questions with head nods. Laying in bed. HEAD: Normal with no signs of trauma. EYES: sclera anicteric, conjunctiva clear. No lid lag. EARS, NOSE, THROAT: Ears normal, nares patent, oropharynx clear without exudates. Dried blood on lips. Moist mucous membranes. NECK: supple without lymphadenopathy, JVD, or masses. LUNGS: Anterior chest exam performed. Decreased breath sounds at bases bilaterally. No wheezes, and no crackles. No accessory muscle use. HEART: Regular rate and rhythm, normal S1 and S2 without murmur, rub or gallop. ABDOMEN: Soft, non-tender, slightly distended. Hypoactive bowel sounds, no masses. No hepatomegaly or splenomegaly. MUSCULOSKELETAL: No bony deformities or tenderness. UPPER EXTREMITIES: 2+ pulses, warm, well-perfused. No cyanosis. No clubbing. Cap refill <2 seconds. No peripheral edema. LOWER EXTREMITIES: 2+ pulses, warm, well-perfused. No peripheral edema. No decubitus ulcers noted. SKIN: Warm, dry, normal turgor, no rashes or lesions noted. Laboratory Results - last 24 hr CBC, BMP 10/19/16 05:15 10/19/16 05:15 10/17/16 10/18/16 10/18/16 21:24 05:50 11:52 WBC RBC Hgb Hct MCV MCH MCHC RDW Plt Count MPV Neutrophils % Lymphocytes % Monocytes % Eosinophils % Basophils % INR Puncture Site ABG pH ABG pCO2 at Pt Temp ABG pO2 at Pt Temp ABG HCO3 ABG O2 Sat (Measured) ABG O2 Content ABG Base Excess Corwin Test O2 Delivery Device Oxygen Flow Rate Vent Mode Vent Rate Mechanical Rate PEEP Pressure Support Vent Sodium Potassium Chloride Carbon Dioxide Anion Gap BUN Creatinine Creat Clearance w eGFR POC Glucometer 132.97776 161.10705 153.81060 Random Glucose Calcium Phosphorus Magnesium Total Bilirubin AST ALT Alkaline Phosphatase Total Protein Albumin 10/19/16 10/19/16 10/19/16 05:15 05:15 05:15 WBC 11.9 H RBC 3.72 Hgb 11.1 D Hct 34.1 MCV 91.6 MCH 29.9 MCHC 32.7 RDW 14.9 Plt Count 163 MPV 10.6 Neutrophils % 78.6 Lymphocytes % 11.9 D Monocytes % 7.6 Eosinophils % 1.6 D Basophils % 0.3 INR 1.58 H Puncture Site ABG pH ABG pCO2 at Pt Temp ABG pO2 at Pt Temp ABG HCO3 ABG O2 Sat (Measured) ABG O2 Content ABG Base Excess Corwin Test O2 Delivery Device Oxygen Flow Rate Vent Mode Vent Rate Mechanical Rate PEEP Pressure Support Vent Sodium 143 Potassium 4.0 D Chloride 105 Carbon Dioxide 31 Anion Gap 7 L BUN 17 D Creatinine 0.6 Creat Clearance w eGFR > 60 POC Glucometer Random Glucose 135 H Calcium 8.0 L Phosphorus 2.3 L Magnesium 2.2 Total Bilirubin 0.3 D AST 17 D ALT 30 D Alkaline Phosphatase 108 Total Protein 5.7 L Albumin 2.2 L 10/19/16 07:10 WBC RBC Hgb Hct MCV MCH MCHC RDW Plt Count MPV Neutrophils % Lymphocytes % Monocytes % Eosinophils % Basophils % INR Puncture Site Right radial ABG pH 7.47 H ABG pCO2 at Pt Temp 41.2 ABG pO2 at Pt Temp 138.0 H D ABG HCO3 29.3 H ABG O2 Sat (Measured) 99.4 H ABG O2 Content 16.1 ABG Base Excess 5.5 H Corwin Test Positive O2 Delivery Device Vent Oxygen Flow Rate 40 Vent Mode A/c Vent Rate 12 Mechanical Rate Yes PEEP 5.0 Pressure Support Vent 350 Sodium Potassium Chloride Carbon Dioxide Anion Gap BUN Creatinine Creat Clearance w eGFR POC Glucometer Random Glucose Calcium Phosphorus Magnesium Total Bilirubin AST ALT Alkaline Phosphatase Total Protein Albumin Microbiology 10/16/16 01:35 Nasopharyngeal Swab Respiratory Virus (PCR) - Preliminary 10/15/16 22:23 Blood - Peripheral Venous Blood Culture - Preliminary NO GROWTH OBTAINED AFTER 72 HOURS, INCUBATION TO CONTINUE FOR 2 DAYS. 10/15/16 22:23 Blood - Peripheral Venous Blood Culture - Preliminary NO GROWTH OBTAINED AFTER 72 HOURS, INCUBATION TO CONTINUE FOR 2 DAYS. 10/16/16 22:00 Sputum - Endotrachea Suction/Ventilator Gram Stain - Final 10/16/16 22:00 Sputum - Endotrachea Suction/Ventilator Sputum Culture - Preliminary Yeast Like Organism 10/15/16 22:23 Urine - Urine Carrillo Urine Culture - Final NO GROWTH OBTAINED 10/16/16 22:00 Urine For Antigen Detection Legionella Antigen - Final 10/16/16 22:00 Urine For Antigen Detection Streptococcus pneumoniae Antigen (M - Final Active Medications Generic Name Dose Route Start Last Admin Trade Name Freq PRN Reason Stop Dose Admin Acetaminophen 650 mg 10/18/16 20:41 10/18/16 21:13 Tylenol - PO 650 mg Q4H PRN Administration FEVER OR PAIN Apixaban 5 mg 10/17/16 22:00 10/19/16 09:22 Eliquis - PO 5 mg BID [facility] Administration Chlorhexidine Gluconate 1 applic 10/16/16 22:00 10/18/16 21:13 Hibiclens For Decolonization - TP 1 applic HS [facility] Administration Chlorhexidine Gluconate 15 ml 10/16/16 12:15 10/19/16 09:22 Peridex - MM 15 ml BID [facility] Administration Famotidine/Sodium Chloride 50 mls @ 100 mls/hr 10/16/16 10:00 10/19/16 09:22 Pepcid 20 Mg Premixed Ivpb - IVPB 100 mls/hr BID [facility] Administration Lidocaine HCl 1 applic 10/16/16 20:38 10/16/16 20:51 Xylocaine 2% Jelly TP 1 applic Q4H PRN Administration PAIN Methimazole 10 mg 10/16/16 10:00 10/18/16 09:16 Tapazole - NGT 10 mg DAILY [facility] Administration Metoprolol Tartrate 50 mg 10/17/16 12:15 10/19/16 09:22 Lopressor - PO 50 mg BID [facility] Administration Mirtazapine 15 mg 10/16/16 10:00 10/19/16 09:22 Remeron - NGT 15 mg DAILY [facility] Administration Mupirocin 1 applic 10/16/16 10:00 10/18/16 21:14 Bactroban Ointment (For Decolonization) - NS 10/21/16 09:59 1 applic BID [facility] Administration Scopolamine HBr 1 patch 10/17/16 19:15 10/17/16 21:27 Transderm-Scop - TD 1 patch Q72H [facility] Administration ASSESSMENT/PLAN: Assessment: 56 yo woman w/ pmh of ALS, pA-fib, chronic hypercapneic respiratory failure, HTN , hyperthyroidism, who was BIBEMS from [place] due to acute respiratory arrest. Pt w / continued mild fever, uptrending WBC count. Sputum culture positive for yeast- like organism. All other cultures negative to date. Remains intubated w/ no sedation. Clinical picture more consistent with acute respiratory failure secondary to progression of ALS vs. PNA. Abx held yesterday. Pt doing well, afebrile, with no WBC elevation. Plan: Suspected PNA - Off abx, Doing well. Continue to observe. - Sputum cx + for yeast like organism - urinary legionella, pneumococcal Ag neg. Blood, urine cx's neg - Serial CBCs - Trend fever curve, WBCs Roman Mena MD, PGY1 Plan per attending, Dr. Frost Dispo: We will continue to follow the patient. Thank you for this consultative opportunity. Problem List - Problems (1) ALS (amyotrophic lateral sclerosis) Code(s): G12.21 - AMYOTROPHIC LATERAL SCLEROSIS (2) Respiratory failure Code(s): J96.90 - RESPIRATORY FAILURE, UNSP, UNSP W HYPOXIA OR HYPERCAPNIA Qualifiers: Chronicity: acute Respiratory failure complication: hypoxia and hypercapnia Qualified Code(s): J96.01 - Acute respiratory failure with hypoxia (3) Pneumonia Code(s): J18.9 - PNEUMONIA, UNSPECIFIED ORGANISM Qualifiers: Pneumonia type: due to unspecified organism Laterality: left Lung location: upper lobe of lung Qualified Code(s): J18.1 - Lobar pneumonia, unspecified organism Visit type - Emergency Visit Emergency Visit: No - New Patient This patient is new to me today: No - Critical Care Critical Care patient: No
[2016-10-19] MEDS: MUPIROCIN 2% TOPICAL OINTMENT FOR DECOLONIZATION NS SCH ×2 (09:40→22:55)
[2016-10-19] MEDS ORDERED: NAPH,MB-DB/K PH,MBDB POWDER PACKET PO ONE ×2 (11:01→13:30)
[2016-10-19] MEDS ORDERED: HEMOQUE TEST 1 EACH EACH ONE (11:13)
--- NOTE | 2016-10-19 11:21 | PN ---
Progress Note (short form) - Note Progress Note: Patient seen and examined in the ICU. Remains intubated, awake and responsive. No pressors. Tacypneic on CPAP with high PS, likely due to poor ability to maintain Minute Ventilation. OBJECTIVE: Intake & Output 10/16/16 10/17/16 10/18/16 10/19/16 23:59 23:59 23:59 23:59 Intake Total 2030 1975 2740 1130 Output Total 900 1800 1650 300 Balance 7145 942 0347 830 Weight 157 lb 6.561 oz 160 lb 8 oz 165 lb 1.6 oz 163 lb 8 oz Last Vital Signs Temp Pulse Resp BP Pulse Ox 98.8 F 87 28 H 166/105 100 10/19/16 10:08 10/19/16 11:10 10/19/16 11:10 10/19/16 11:10 10/19/16 07:39 Active Medications Acetaminophen (Tylenol -) 650 mg PO Q4H PRN PRN Reason: FEVER OR PAIN Last Admin: 10/18/16 21:13 Dose: 650 mg Apixaban (Eliquis -) 5 mg PO BID [facility] Last Admin: 10/19/16 09:22 Dose: 5 mg Chlorhexidine Gluconate (Hibiclens For Decolonization -) 1 applic TP HS [facility] Last Admin: 10/18/16 21:13 Dose: 1 applic Chlorhexidine Gluconate (Peridex -) 15 ml MM BID [facility] Last Admin: 10/19/16 09:22 Dose: 15 ml Famotidine/Sodium Chloride (Pepcid 20 Mg Premixed Ivpb -) 50 mls @ 100 mls/hr IVPB BID [facility] Last Admin: 10/19/16 09:22 Dose: 100 mls/hr Lidocaine HCl (Xylocaine 2% Jelly) 1 applic TP Q4H PRN PRN Reason: PAIN Last Admin: 10/16/16 20:51 Dose: 1 applic Methimazole (Tapazole -) 10 mg NGT DAILY [facility] Last Admin: 10/19/16 09:29 Dose: 10 mg Metoprolol Tartrate (Lopressor -) 50 mg PO BID [facility] Last Admin: 10/19/16 09:22 Dose: 50 mg Mirtazapine (Remeron -) 15 mg NGT DAILY [facility] Last Admin: 10/19/16 09:22 Dose: 15 mg Mupirocin (Bactroban Ointment (For Decolonization) -) 1 applic NS BID [facility] Stop: 10/21/16 09:59 Last Admin: 10/19/16 09:40 Dose: 1 applic Scopolamine HBr (Transderm-Scop -) 1 patch TD Q72H [facility] Last Admin: 10/17/16 21:27 Dose: 1 patch Gen: Intubated, awake Heart: RRR Lung: decreased breath sounds at the bases Abd: soft, nontender Ext: no edema Laboratory Results - last 24 hr 10/17/16 10/18/16 10/18/16 21:24 05:50 11:52 WBC RBC Hgb Hct MCV MCH MCHC RDW Plt Count MPV Neutrophils % Lymphocytes % Monocytes % Eosinophils % Basophils % INR Puncture Site ABG pH ABG pCO2 at Pt Temp ABG pO2 at Pt Temp ABG HCO3 ABG O2 Sat (Measured) ABG O2 Content ABG Base Excess Corwin Test O2 Delivery Device Oxygen Flow Rate Vent Mode Vent Rate Mechanical Rate PEEP Pressure Support Vent Sodium Potassium Chloride Carbon Dioxide Anion Gap BUN Creatinine Creat Clearance w eGFR POC Glucometer 132.04484 161.45586 153.07698 Random Glucose Calcium Phosphorus Magnesium Total Bilirubin AST ALT Alkaline Phosphatase Total Protein Albumin 10/19/16 10/19/16 10/19/16 05:15 05:15 05:15 WBC 11.9 H RBC 3.72 Hgb 11.1 D Hct 34.1 MCV 91.6 MCH 29.9 MCHC 32.7 RDW 14.9 Plt Count 163 MPV 10.6 Neutrophils % 78.6 Lymphocytes % 11.9 D Monocytes % 7.6 Eosinophils % 1.6 D Basophils % 0.3 INR 1.58 H Puncture Site ABG pH ABG pCO2 at Pt Temp ABG pO2 at Pt Temp ABG HCO3 ABG O2 Sat (Measured) ABG O2 Content ABG Base Excess Corwin Test O2 Delivery Device Oxygen Flow Rate Vent Mode Vent Rate Mechanical Rate PEEP Pressure Support Vent Sodium 143 Potassium 4.0 D Chloride 105 Carbon Dioxide 31 Anion Gap 7 L BUN 17 D Creatinine 0.6 Creat Clearance w eGFR > 60 POC Glucometer Random Glucose 135 H Calcium 8.0 L Phosphorus 2.3 L Magnesium 2.2 Total Bilirubin 0.3 D AST 17 D ALT 30 D Alkaline Phosphatase 108 Total Protein 5.7 L Albumin 2.2 L 10/19/16 07:10 WBC RBC Hgb Hct MCV MCH MCHC RDW Plt Count MPV Neutrophils % Lymphocytes % Monocytes % Eosinophils % Basophils % INR Puncture Site Right radial ABG pH 7.47 H ABG pCO2 at Pt Temp 41.2 ABG pO2 at Pt Temp 138.0 H D ABG HCO3 29.3 H ABG O2 Sat (Measured) 99.4 H ABG O2 Content 16.1 ABG Base Excess 5.5 H Corwin Test Positive O2 Delivery Device Vent Oxygen Flow Rate 40 Vent Mode A/c Vent Rate 12 Mechanical Rate Yes PEEP 5.0 Pressure Support Vent 350 Sodium Potassium Chloride Carbon Dioxide Anion Gap BUN Creatinine Creat Clearance w eGFR POC Glucometer Random Glucose Calcium Phosphorus Magnesium Total Bilirubin AST ALT Alkaline Phosphatase Total Protein Albumin ASSESSMENT AND PLAN: Acute on Chronic Hypoxic and Hypercapneic Respiratory Failure s/p Cardiac Arrest likely from Respiratory Failure Pneumonia Sepsis Lactic Acidosis resolved Advanced ALS Paroxysmal Atrial Fibrillation with RVR HTN Hyperthyroidism - Off ABX per ID - rate control with metoprolol - continue anticoagulation - replete lytes - enteral feeds - spontaneous breathing trials as tolerated - DVT/GI prophylaxis - continue discussions regarding goals of care, advanced directives - Appears that the patient has not been weaning adequately -> May need Trach depending on GOC Dr Grant critical care time spent in reviewing chart, evaluating patient and formulating plan 36 min
--- NOTE | 2016-10-19 11:27 | PN ---
Teaching Attending Note Name of Resident: Manjula Delvalle ATTENDING PHYSICIAN STATEMENT I saw and evaluated the patient. I reviewed the resident's note and discussed the case with the resident. I agree with the resident's findings and plan as documented. SUBJECTIVE:alert, on cpap trial. tachypnic but maintaining saturations OBJECTIVE: Last Vital Signs Temp Pulse Resp BP Pulse Ox 98.8 F 87 28 H 166/105 100 10/19/16 10:08 10/19/16 11:10 10/19/16 11:10 10/19/16 11:10 10/19/16 07:39 General alert. mildly anxious, tachypnic CV S1 S2 RRR no murmur/rub/gallop lungs CTA B/L no crackles or wheezing anteriorly Abdomen soft NT/ND Extremities no pedal edema ASSESSMENT AND PLAN: 56yo F with PMH ALS, chronic hypercapnic respiratory failure, HTN, hyperthyroid , afib and dyslipidemia brought into the ER in acute respiratory distress and intubated in the field with cardiac arrest in the ER 1. s/p cardiac arrest- likely due to hypoxia, vs electrolyte abnormality. likely not cardiac origin 2. Acute on Chronic hypercapnic respiratory failure- likely due to progression of ALS vs HCAP. afebrile. CXR no change. currently on cpap trial. tachypnic likely due to muscle weakness at baseline. maintaining 98% spO2. vent management per ICU. cont TF 3. Lactic acidosis- likely due to chest compresssions. resolved 4. Hypokalemia- resolved 5. Hypophosphatemia- neutraphos 6. Hyperthyroidism- TSH WNL. cont methimazole 7. HTN- currently normotensive. hold oral agents 8. Afib- currently rate controlled. on eliquis 9. DVT ppx- eliquis 10. cont MICU monitoring CC TIME 40 minutes. The care of this patient involved high complexity decision making to prevent further life threatening deterioration of the patient's condition and/or to evaluate & treat vital organ system(s) failure or risk of failure.
--- NOTE | 2016-10-19 14:21 | PN ---
Physical Exam: SUBJECTIVE: Patient seen and examined at bedside today. No acute events overnight. Pt's RR early this morning 14, tachypneic 28-34 during rounds. On 40 % Fi02. Pt awake, responds to name and commands. OBJECTIVE: Vital Signs Period Temp Pulse Resp BP Sys/Hatch Pulse Ox Last 24 Hr 98.2 F-100.3 F 84-106 12-34 99-182/67-105 99-100 GENERAL: The patient is awake, on vent, mild distress HEAD: Normal with no signs of trauma. EYES: PERRL, extraocular movements intact, sclera anicteric, conjunctiva clear. NECK: Trachea midline,supple. LUNGS: Tachypneic, breath sounds equal, clear to auscultation bilaterally, no wheezes, no crackles, no accessory muscle use. HEART: Regular rate and rhythm, S1, S2 without murmur, rub or gallop. ABDOMEN: Soft, nontender, nondistended, normoactive bowel sounds, no guarding, no rebound, no hepatosplenomegaly, no masses. EXTREMITIES: 2+ posterior tibial pulses, warm, well-perfused, no edema. NEUROLOGICAL: difficult to assess, pt responds to commands and her name Laboratory Results - last 24 hr 10/18/16 10/19/16 10/19/16 11:52 05:15 05:15 WBC 11.9 H RBC 3.72 Hgb 11.1 D Hct 34.1 MCV 91.6 MCH 29.9 MCHC 32.7 RDW 14.9 Plt Count 163 MPV 10.6 Neutrophils % 78.6 Lymphocytes % 11.9 D Monocytes % 7.6 Eosinophils % 1.6 D Basophils % 0.3 INR 1.58 H Puncture Site ABG pH ABG pCO2 at Pt Temp ABG pO2 at Pt Temp ABG HCO3 ABG O2 Sat (Measured) ABG O2 Content ABG Base Excess Corwin Test O2 Delivery Device Oxygen Flow Rate Vent Mode Vent Rate Mechanical Rate PEEP Pressure Support Vent Sodium Potassium Chloride Carbon Dioxide Anion Gap BUN Creatinine Creat Clearance w eGFR POC Glucometer [id number] Random Glucose Calcium Phosphorus Magnesium Total Bilirubin AST ALT Alkaline Phosphatase Total Protein Albumin 10/19/16 10/19/16 10/19/16 05:15 05:35 07:10 WBC RBC Hgb Hct MCV MCH MCHC RDW Plt Count MPV Neutrophils % Lymphocytes % Monocytes % Eosinophils % Basophils % INR Puncture Site Right radial ABG pH 7.47 H ABG pCO2 at Pt Temp 41.2 ABG pO2 at Pt Temp 138.0 H D ABG HCO3 29.3 H ABG O2 Sat (Measured) 99.4 H ABG O2 Content 16.1 ABG Base Excess 5.5 H Corwin Test Positive O2 Delivery Device Vent Oxygen Flow Rate 40 Vent Mode A/c Vent Rate 12 Mechanical Rate Yes PEEP 5.0 Pressure Support Vent 350 Sodium 143 Potassium 4.0 D Chloride 105 Carbon Dioxide 31 Anion Gap 7 L BUN 17 D Creatinine 0.6 Creat Clearance w eGFR > 60 POC Glucometer [phone] Random Glucose 135 H Calcium 8.0 L Phosphorus 2.3 L Magnesium 2.2 Total Bilirubin 0.3 D AST 17 D ALT 30 D Alkaline Phosphatase 108 Total Protein 5.7 L Albumin 2.2 L 10/19/16 11:16 WBC RBC Hgb Hct MCV MCH MCHC RDW Plt Count MPV Neutrophils % Lymphocytes % Monocytes % Eosinophils % Basophils % INR Puncture Site ABG pH ABG pCO2 at Pt Temp ABG pO2 at Pt Temp ABG HCO3 ABG O2 Sat (Measured) ABG O2 Content ABG Base Excess Corwin Test O2 Delivery Device Oxygen Flow Rate Vent Mode Vent Rate Mechanical Rate PEEP Pressure Support Vent Sodium Potassium Chloride Carbon Dioxide Anion Gap BUN Creatinine Creat Clearance w eGFR POC Glucometer [phone] Random Glucose Calcium Phosphorus Magnesium Total Bilirubin AST ALT Alkaline Phosphatase Total Protein Albumin Active Medications Generic Name Dose Route Start Last Admin Trade Name Freq PRN Reason Stop Dose Admin Acetaminophen 650 mg 10/18/16 20:41 10/18/16 21:13 Tylenol - PO 650 mg Q4H PRN Administration FEVER OR PAIN Apixaban 5 mg 10/17/16 22:00 10/19/16 09:22 Eliquis - PO 5 mg BID [facility] Administration Chlorhexidine Gluconate 1 applic 10/16/16 22:00 10/18/16 21:13 Hibiclens For Decolonization - TP 1 applic HS [facility] Administration Chlorhexidine Gluconate 15 ml 10/16/16 12:15 10/19/16 09:22 Peridex - MM 15 ml BID [facility] Administration Famotidine/Sodium Chloride 50 mls @ 100 mls/hr 10/16/16 10:00 10/19/16 09:22 Pepcid 20 Mg Premixed Ivpb - IVPB 100 mls/hr BID [facility] Administration Lidocaine HCl 1 applic 10/16/16 20:38 10/16/16 20:51 Xylocaine 2% Jelly TP 1 applic Q4H PRN Administration PAIN Methimazole 10 mg 10/16/16 10:00 10/19/16 09:29 Tapazole - NGT 10 mg DAILY [facility] Administration Metoprolol Tartrate 50 mg 10/17/16 12:15 10/19/16 09:22 Lopressor - PO 50 mg BID [facility] Administration Mirtazapine 15 mg 10/16/16 10:00 10/19/16 09:22 Remeron - NGT 15 mg DAILY [facility] Administration Mupirocin 1 applic 10/16/16 10:00 10/19/16 09:40 Bactroban Ointment (For Decolonization) - NS 10/21/16 09:59 1 applic BID [facility] Administration Scopolamine HBr 1 patch 10/17/16 19:15 10/17/16 21:27 Transderm-Scop - TD 1 patch Q72H [facility] Administration ASSESSMENT/PLAN: 56 yr old F with PMH ALS, chronic hypercapnic resp failure, HTN, HLD, hyperthyroidism, goiter, intubated to ED via EMS due to resp arrest. In ED, pt had cardiac arrest (V tach) for 5 min, was resuscitated and stabilized, admitted to ICU. 1. s/p Cardiac arrest in ED possibly secondary to hypoxia -Troponins negative x2 -Echo: regional wall motion abnormalities can't be ruled out. When compared to Echo 10/10/16: no wall motion abnormalities 2. Hypophosphatemia -2 packets of neutro-phosph ordered -Will F/u phosph levels 2. Lactic acidosis secondary to cardiac arrest-resolved 3. Hypokalemia-resolved 4. Acute on chronic respiratory failure secondary to possible aspiration pneumonia vs. ALS -Pt intubated, Fi02 40%, tachypneic this morning may just be result of her ALS -Leukocytosis improving 11.9 (from 15.2) -CXR 10/18: no change, dense L base persists -As per nurse, did not tolerate CPAP this morning -Sputum cx: yeast like organism, possibly from aspiration -Continue Osmolite 1.2 volume based feeds -Will continue to monitor CPAP trial progress 5. Hypernatremia-resolved 6. Paroxysmal afib -Continue Eliquis 5mg NGT daily -Continue rate control with lopressor 50mg BID 8. Hyperthyroidism -Continue Methimazole 9. Major Depressive Disorder -Continue Remeron 10. Palliative care F/E/N IV NS 75 mls/hr Monitor electrolytes Visit type - Emergency Visit Emergency Visit: No - New Patient This patient is new to me today: No - Critical Care Critical Care patient: Yes Total Critical Care Time (in minutes): 32 Critical Care Statement: The care of this patient involved high complexity decision making to prevent further life threatening deterioration of the patient 's condition and/or to evalute & treat vital organ system(s) failure or risk of failure.
[2016-10-19] MEDS: CHLORHEXIDINE GLUCONATE 4% CLEANSER FOR DECOLONIZATION TP SCH (22:55)
[2016-10-20] MEDS ORDERED: INSULIN (NOVOLOG) ASPART 100 UNITS/ML 10ML VIAL ONE (00:03)
[2016-10-20 06:44] LABS: ANION GAP 6 (8-16); CALCIUM 7.7 mg/dL (8.5-10.1); CO2 31 mmol/L (21-32); CREATININE 0.6 mg/dL (0.55-1.02); GLUCOSE,RANDOM 87 mg/dL (74-106)
[2016-10-20 06:54] LABS: BASOPHIL 0.3 % (0-2.0); EOSINOPHIL 1.9 % (0-4.5); MCH 29.9 pg (25.7-33.7); MCHC 32.6 g/dl (32.0-36.0); MEAN CELL VOLUME 91.8 fl (80-96); MEAN PLT VOLUME 10.6 fl (7.5-11.1); NEUTROPHILS 72.1 % (42.8-82.8); PLATELET COUNT 170 K/MM3 (134-434); RDW 14.9 % (11.6-15.6)
--- NOTE | 2016-10-20 07:36 | PN ---
Progress Note (short form) - Note Progress Note: alert, shakes her head no to having any pain or difficulty breathing. Current Medications Generic Name Dose Route Start Last Admin Trade Name Freq PRN Reason Stop Dose Admin Acetaminophen 650 mg 10/18/16 20:41 10/18/16 21:13 Tylenol - PO 650 mg Q4H PRN Administration FEVER OR PAIN Apixaban 5 mg 10/17/16 22:00 10/19/16 22:55 Eliquis - PO 5 mg BID [facility] Administration Chlorhexidine Gluconate 1 applic 10/16/16 22:00 10/19/16 22:55 Hibiclens For Decolonization - TP 1 applic HS [facility] Administration Chlorhexidine Gluconate 15 ml 10/16/16 12:15 10/19/16 22:55 Peridex - MM 15 ml BID [facility] Administration Fentanyl 25 mcg 10/19/16 17:52 10/19/16 17:55 Sublimaze Injection - IVPUSH 10/20/16 17:51 25 mcg Q15M PRN Administration PAIN Famotidine/Sodium Chloride 50 mls @ 100 mls/hr 10/16/16 10:00 10/19/16 22:55 Pepcid 20 Mg Premixed Ivpb - IVPB 100 mls/hr BID [facility] Administration Lidocaine HCl 1 applic 10/16/16 20:38 10/16/16 20:51 Xylocaine 2% Jelly TP 1 applic Q4H PRN Administration PAIN Methimazole 10 mg 10/16/16 10:00 10/19/16 09:29 Tapazole - NGT 10 mg DAILY [facility] Administration Metoprolol Tartrate 50 mg 10/17/16 12:15 10/19/16 22:54 Lopressor - PO 50 mg BID [facility] Administration Mirtazapine 15 mg 10/16/16 10:00 10/19/16 09:22 Remeron - NGT 15 mg DAILY [facility] Administration Mupirocin 1 applic 10/16/16 10:00 10/19/16 22:55 Bactroban Ointment (For Decolonization) - NS 10/21/16 09:59 1 applic BID [facility] Administration Scopolamine HBr 1 patch 10/17/16 19:15 10/17/16 21:27 Transderm-Scop - TD 1 patch Q72H [facility] Administration Last Vital Signs Temp Pulse Resp BP Pulse Ox 99.9 F H 90 14 102/63 97 10/20/16 07:00 10/20/16 07:00 10/20/16 07:30 10/20/16 07:00 10/19/16 22:00 General alert. CV S1 S2 RRR no murmur/rub/gallop lungs CTA B/L no crackles or wheezing anteriorly Abdomen soft NT/ND Extremities no pedal edema ASSESSMENT AND PLAN: 56yo F with PMH ALS, chronic hypercapnic respiratory failure, HTN, hyperthyroid , afib and dyslipidemia brought into the ER in acute respiratory distress and intubated in the field with cardiac arrest in the ER 1. s/p cardiac arrest- likely due to hypoxia, vs electrolyte abnormality. likely not cardiac origin. no indication for workup at this time 2. Acute on Chronic hypercapnic respiratory failure- likely due to progression of ALS vs HCAP. afebrile. tolerated several hours of cpap yesterday, cpap trial again today. monitor how long able to tolerate. vent management per ICU. cont TF 3. Lactic acidosis- likely due to chest compresssions. resolved 4. Hypokalemia- resolved 5. Hypophosphatemia- resolved 6. Hyperthyroidism- TSH WNL. cont methimazole 7. HTN- currently normotensive. on metoprolol 8. Afib- currently rate controlled. on metoprolol/eliquis 9. DVT ppx- eliquis 10. cont MICU monitoring CC TIME 42 minutes. The care of this patient involved high complexity decision making to prevent further life threatening deterioration of the patient's condition and/or to evaluate & treat vital organ system(s) failure or risk of failure. Visit type - Emergency Visit Emergency Visit: Yes ED Registration Date: 10/15/16 Care time: The patient presented to the Emergency Department on the above date and was hospitalized for further evaluation of their emergent condition. - New Patient This patient is new to me today: No - Critical Care Critical Care patient: Yes Total Critical Care Time (in minutes): 42 Critical Care Statement: The care of this patient involved high complexity decision making to prevent further life threatening deterioration of the patient 's condition and/or to evalute & treat vital organ system(s) failure or risk of failure. - Discharge Referral Referred to [id number] No
[2016-10-20] MEDS ORDERED: PT OWN MED DRAWER 7, Y5N ONE (08:46)
[2016-10-20] MEDS: FAMOTIDINE 20 MG/50 ML IVPB 50 ML IVPB SCH ×2 (09:12→22:34)
[2016-10-20] MEDS: METOPROLOL TARTRATE 50 MG TABLET (FP) PO SCH ×2 (09:12→22:33)
[2016-10-20] MEDS: APIXABAN 2.5 MG TABLET PO SCH ×2 (09:12→22:33)
[2016-10-20] MEDS: MUPIROCIN 2% TOPICAL OINTMENT FOR DECOLONIZATION NS SCH ×2 (09:12→22:33)
[2016-10-20] MEDS: CHLORHEXIDINE GLUCONATE 0.12% 15ML CUP MM SCH ×2 (09:13→21:34)
[2016-10-20] MEDS: METHIMAZOLE 10 MG TABLET (FP) NGT SCH (09:14)
[2016-10-20] MEDS: MIRTAZAPINE 15 MG TABLET (FP) NGT SCH (09:14)
--- NOTE | 2016-10-20 09:15 | PN ---
Progress Note (short form) - Note Progress Note: alert remains intubated Vital Signs Period Temp Pulse Resp BP Sys/Hatch Pulse Ox Last 24 Hr 98.7 F-100 F 84-112 12-34 99-182/62-105 97-100 cor-rrr lungs decreased bs at bases abd soft,nt ext no edema CBC, BMP 10/20/16 05:20 10/20/16 05:20 Current Medications Acetaminophen (Tylenol -) 650 mg PO Q4H PRN PRN Reason: FEVER OR PAIN Last Admin: 10/18/16 21:13 Dose: 650 mg Apixaban (Eliquis -) 5 mg PO BID [facility] Last Admin: 10/19/16 22:55 Dose: 5 mg Chlorhexidine Gluconate (Hibiclens For Decolonization -) 1 applic TP HS [facility] Last Admin: 10/19/16 22:55 Dose: 1 applic Chlorhexidine Gluconate (Peridex -) 15 ml MM BID [facility] Last Admin: 10/19/16 22:55 Dose: 15 ml Fentanyl (Sublimaze Injection -) 25 mcg IVPUSH Q2H PRN PRN Reason: pain Stop: 10/21/16 07:59 Famotidine/Sodium Chloride (Pepcid 20 Mg Premixed Ivpb -) 50 mls @ 100 mls/hr IVPB BID [facility] Last Admin: 10/19/16 22:55 Dose: 100 mls/hr Lidocaine HCl (Xylocaine 2% Jelly) 1 applic TP Q4H PRN PRN Reason: PAIN Last Admin: 10/16/16 20:51 Dose: 1 applic Methimazole (Tapazole -) 10 mg NGT DAILY [facility] Last Admin: 10/19/16 09:29 Dose: 10 mg Metoprolol Tartrate (Lopressor -) 50 mg PO BID [facility] Last Admin: 10/19/16 22:54 Dose: 50 mg Mirtazapine (Remeron -) 15 mg NGT DAILY [facility] Last Admin: 10/19/16 09:22 Dose: 15 mg Mupirocin (Bactroban Ointment (For Decolonization) -) 1 applic NS BID [facility] Stop: 10/21/16 09:59 Last Admin: 10/19/16 22:55 Dose: 1 applic Scopolamine HBr (Transderm-Scop -) 1 patch TD Q72H [facility] Last Admin: 10/17/16 21:27 Dose: 1 patch Microbiology 10/15/16 22:23 Blood - Peripheral Venous Blood Culture - Preliminary NO GROWTH OBTAINED AFTER 96 HOURS, INCUBATION TO CONTINUE FOR 1 DAYS. 10/15/16 22:23 Blood - Peripheral Venous Blood Culture - Preliminary NO GROWTH OBTAINED AFTER 96 HOURS, INCUBATION TO CONTINUE FOR 1 DAYS. 10/16/16 22:00 Sputum - Endotrachea Suction/Ventilator Gram Stain - Final 10/16/16 22:00 Sputum - Endotrachea Suction/Ventilator Sputum Culture - Final Yeast Like Organism 10/16/16 01:35 Nasopharyngeal Swab Respiratory Virus (PCR) - Final 10/15/16 22:23 Urine - Urine Carrillo Urine Culture - Final NO GROWTH OBTAINED 10/16/16 22:00 Urine For Antigen Detection Legionella Antigen - Final 10/16/16 22:00 Urine For Antigen Detection Streptococcus pneumoniae Antigen (M - Final a/p resp failure ALS s/p cardiac arrest afib antibiotics d/madelin 10/18- continue to observe off antibiotics continue present care, attempts at weaning, rate control afib
--- NOTE | 2016-10-20 10:32 | PN ---
Progress Note, Physician Chief Complaint: Pt is intubated; eyes open; moves head for yes or no responses. History of Present Illness: The patient is a 56F with a PMH of ALS, HTN, hyperthyroidism, and goiter who presented to the ED via EMS for AMS and IESHA. The son states that he was visiting his mother at a [facility] facility and noticed that she was not as alert as she normally is. He also noted that she was breathing through her mouth. He states that his mother (the patient) took a nap, then woke up more altered and was staring at the ceiling. This happpened around 8:20 pm, where the son states that the patient look "disheveled". EMS was called and per the son, EMS said her vitals were stable and she was not unconscious. Per EMS she was intubated en route to the ED. - Current Medication List Current Medications: Active Medications Acetaminophen (Tylenol -) 650 mg PO Q4H PRN PRN Reason: FEVER OR PAIN Last Admin: 10/18/16 21:13 Dose: 650 mg Apixaban (Eliquis -) 5 mg PO BID [facility] Last Admin: 10/20/16 09:12 Dose: 5 mg Chlorhexidine Gluconate (Hibiclens For Decolonization -) 1 applic TP HS [facility] Last Admin: 10/19/16 22:55 Dose: 1 applic Chlorhexidine Gluconate (Peridex -) 15 ml MM BID [facility] Last Admin: 10/20/16 09:13 Dose: 15 ml Fentanyl (Sublimaze Injection -) 25 mcg IVPUSH Q2H PRN PRN Reason: pain Stop: 10/21/16 07:59 Famotidine/Sodium Chloride (Pepcid 20 Mg Premixed Ivpb -) 50 mls @ 100 mls/hr IVPB BID [facility] Last Admin: 10/20/16 09:12 Dose: 100 mls/hr Lidocaine HCl (Xylocaine 2% Jelly) 1 applic TP Q4H PRN PRN Reason: PAIN Last Admin: 10/16/16 20:51 Dose: 1 applic Methimazole (Tapazole -) 10 mg NGT DAILY [facility] Last Admin: 10/20/16 09:14 Dose: 10 mg Metoprolol Tartrate (Lopressor -) 50 mg PO BID [facility] Last Admin: 10/20/16 09:12 Dose: 50 mg Mirtazapine (Remeron -) 15 mg NGT DAILY [facility] Last Admin: 10/20/16 09:14 Dose: 15 mg Mupirocin (Bactroban Ointment (For Decolonization) -) 1 applic NS BID [facility] Stop: 10/21/16 09:59 Last Admin: 10/20/16 09:12 Dose: 1 applic Scopolamine HBr (Transderm-Scop -) 1 patch TD Q72H [facility] Last Admin: 10/17/16 21:27 Dose: 1 patch - Objective Vital Signs: Vital Signs Temperature 99.7 F H 10/20/16 10:00 Pulse Rate 79 10/20/16 10:28 Respiratory Rate 16 10/20/16 10:28 Blood Pressure 109/74 10/20/16 10:00 O2 Sat by Pulse Oximetry (%) 100 10/20/16 10:28 Constitutional: Yes: Calm Eyes: Yes: WNL HENT: Yes: WNL Neck: Yes: Other (intubated;ALS (no discerible movement except with eyes/face)) Cardiovascular: Yes: Pulse Irregular Respiratory: Yes: Diminished Gastrointestinal: Yes: Soft Genitourinary: No: Anuria Extremities: Yes: Cool Edema: No Peripheral Pulses WNL: Yes Integumentary: Yes: WNL Neurological: Yes: Weakness Psychiatric: Yes: Other Labs: CBC, BMP 10/20/16 05:20 10/20/16 05:20 INR, PTT INR 1.58 (0.82-1.09) H 10/19/16 05:15 Problem List - Problems (1) Respiratory failure requiring intubation Assessment/Plan: ALS. CXR: no significant change Code(s): J96.90 - RESPIRATORY FAILURE, UNSP, UNSP W HYPOXIA OR HYPERCAPNIA (2) Bacteremia Assessment/Plan: leukocytosis; anemia. Code(s): R78.81 - BACTEREMIA (3) ALS (amyotrophic lateral sclerosis) Code(s): G12.21 - AMYOTROPHIC LATERAL SCLEROSIS (4) Paroxysmal atrial fibrillation Assessment/Plan: Presently in NSR; periods of PAF. Continue metoprolol and apixaban. Code(s): I48.0 - PAROXYSMAL ATRIAL FIBRILLATION Assessment/Plan cc time spent perusing chart, evaluating pt, formulating plan: 40 minutes
--- NOTE | 2016-10-20 12:17 | PN ---
Progress Note (short form) - Note Progress Note: PULM/CRITICAL CARE FOLLOW UP: Progress Note (short form) Progress Note: pt seen and examined in the ICU 24 HOUR EVENTS: -Failing PSV trials do to rapid shallow breathing -Tried PSV 10 today with Vt of ~100mL and asked for vital capacity breath which she was only able to do ~125mL, unable to measure NIF OBJECTIVE: Current Medications Acetaminophen (Tylenol -) 650 mg PO Q4H PRN PRN Reason: FEVER OR PAIN Last Admin: 10/18/16 21:13 Dose: 650 mg Apixaban (Eliquis -) 5 mg PO BID [facility] Last Admin: 10/20/16 09:12 Dose: 5 mg Chlorhexidine Gluconate (Hibiclens For Decolonization -) 1 applic TP HS [facility] Last Admin: 10/19/16 22:55 Dose: 1 applic Chlorhexidine Gluconate (Peridex -) 15 ml MM BID [facility] Last Admin: 10/20/16 09:13 Dose: 15 ml Fentanyl (Sublimaze Injection -) 25 mcg IVPUSH Q2H PRN PRN Reason: pain Stop: 10/21/16 07:59 Famotidine/Sodium Chloride (Pepcid 20 Mg Premixed Ivpb -) 50 mls @ 100 mls/hr IVPB BID [facility] Last Admin: 10/20/16 09:12 Dose: 100 mls/hr Lidocaine HCl (Xylocaine 2% Jelly) 1 applic TP Q4H PRN PRN Reason: PAIN Last Admin: 10/16/16 20:51 Dose: 1 applic Methimazole (Tapazole -) 10 mg NGT DAILY [facility] Last Admin: 10/20/16 09:14 Dose: 10 mg Metoprolol Tartrate (Lopressor -) 50 mg PO BID [facility] Last Admin: 10/20/16 09:12 Dose: 50 mg Mirtazapine (Remeron -) 15 mg NGT DAILY [facility] Last Admin: 10/20/16 09:14 Dose: 15 mg Mupirocin (Bactroban Ointment (For Decolonization) -) 1 applic NS BID [facility] Stop: 10/21/16 09:59 Last Admin: 10/20/16 09:12 Dose: 1 applic Scopolamine HBr (Transderm-Scop -) 1 patch TD Q72H [facility] Last Admin: 10/17/16 21:27 Dose: 1 patch Vital Signs Temp 99.7 F H 10/20/16 10:00 Pulse 79 10/20/16 10:28 Resp 16 10/20/16 10:28 BP 109/74 10/20/16 10:00 Pulse Ox 100 10/20/16 10:28 Intake & Output 10/19/16 10/20/16 10/20/16 18:59 06:59 18:59 Intake Total 1200 50 Output Total 400 500 Balance 800 -500 50 Weight 74.162 kg Intake: IVPB 50 Tube Feeding 600 Tube Irrigant 600 Output: Urine 400 500 Carrillo 400 500 Other: Voiding Method Indwelling Catheter Indwelling Catheter Indwelling Catheter Bowel Movement Yes Yes # Bowel Movements 1 Weight Measurement Method Built in [facility] Gen: Intubated, awake, alert Heart: RRR Lung: decreased breath sounds at the bases Abd: soft, nontender Ext: no edema CBC, BMP 10/20/16 05:20 10/20/16 05:20 ASSESSMENT AND PLAN: Acute on Chronic Hypoxic and Hypercapneic Respiratory Failure s/p Cardiac Arrest likely from Respiratory Failure Pneumonia Sepsis Lactic Acidosis resolved Advanced ALS Paroxysmal Atrial Fibrillation with RVR HTN Hyperthyroidism - Off ABX per ID - rate control with metoprolol - continue anticoagulation - replete lytes - enteral feeds - spontaneous breathing trials daily - not currently a candidate for extubation - DVT/GI prophylaxis - continue discussions regarding goals of care, advanced directives -> I spoke to her in great detail today regarding her disease process, neuromuscular weakness, ability to protect her airway and mechanical ventilation. Based on what we see, she will not be able to be extubated safely - will likely fail immediately or very shortly after extubation. I explained that she will need a tracheostomy and life long mechanical ventilation. I also presented a detailed alternative plan of palliative extubation. Currently, the palliative care team is working on obtaining a computer system that many ALS patients use to communicate. I stressed the importance of having a meeting with us and her family, asking as many questions as possible and formulating a clear and concise plan forward. She understands and is eager to participate. Critically Ill - 35min Sal Gee Pulm/Critical Care [employer] SHOE CUTTER [id number]
[2016-10-20 12:51] LABS: CHOLESTEROL 126 mg/dL (50-200); LDL CHOLESTEROL (ONLY SJRH) 74 mg/dL (5-100)
[2016-10-20] MEDS ORDERED: dilTIAZem HCL 125 MG/25 ML - 25 ML VIAL ONE (17:20)
[2016-10-20] MEDS ORDERED: METOPROLOL TARTRATE 50 MG TABLET (FP) ONE (18:12)
[2016-10-20] MEDS ORDERED: dilTIAZem HCL 50 MG/10 ML - 10 ML VIAL IVPUSH ONE (18:14)
[2016-10-20] MEDS ORDERED: METOPROLOL TARTRATE 50 MG TABLET (FP) PO ONE (18:14)
[2016-10-20] MEDS: CHLORHEXIDINE GLUCONATE 4% CLEANSER FOR DECOLONIZATION TP SCH (21:33)
[2016-10-20] MEDS: SCOPOLAMINE HYDROBROMIDE 1 PATCH PATCH.TD72 TD SCH (23:32)
[2016-10-21] MEDS: dilTIAZem HCL 50 MG/10 ML - 10 ML VIAL IVPUSH PRN ×2 (00:33→07:45)
[2016-10-21] MEDS: ACETAMINOPHEN 325 MG TABLET (FP) PO PRN (00:53)
[2016-10-21] MEDS: METOPROLOL TARTRATE 50 MG TABLET (FP) PO SCH ×3 (03:50→21:34)
[2016-10-21 06:18] LABS: BASOPHIL 0.3 % (0-2.0); EOSINOPHIL 1.5 % (0-4.5); MCHC 33.1 g/dl (32.0-36.0); MEAN CELL VOLUME 90.4 fl (80-96); NEUTROPHILS 77.5 % (42.8-82.8); PLATELET COUNT 200 K/MM3 (134-434); RDW 14.6 % (11.6-15.6); WHITE BLOOD COUNT 11.4 K/mm3 (4.0-10.0)
[2016-10-21 06:57] LABS: ANION GAP 7 (8-16); BILIRUBIN,TOTAL 0.4 mg/dL (0.2-1.0); CALCIUM 7.9 mg/dL (8.5-10.1); CO2 30 mmol/L (21-32); CREATININE 0.5 mg/dL (0.55-1.02); GLUCOSE,RANDOM 140 mg/dL (74-106); MAGNESIUM 2.3 mg/dL (1.8-2.4); PHOSPHOROUS 2.6 mg/dL (2.5-4.9); SGOT/AST 11 U/L (15-37); SGPT/ALT 19 U/L (12-78); TOT PROT 5.3 g/dl (6.4-8.2)
[2016-10-21 06:58] LABS: ALK PHOS 101 U/L (45-117)
[2016-10-21] MEDS ORDERED: PT OWN MED DRAWER 7, Y5N ONE (07:43)
--- NOTE | 2016-10-21 08:30 | PN ---
Teaching Attending Note Name of Resident: Manjula Delvalle ATTENDING PHYSICIAN STATEMENT I saw and evaluated the patient. I reviewed the resident's note and discussed the case with the resident. I agree with the resident's findings and plan as documented. SUBJECTIVE:alert, anxious. points to her genital area when asked if she has pain. denies CP OBJECTIVE: Last Vital Signs Temp Pulse Resp BP Pulse Ox 98.9 F 81 16 97/68 91 L 10/21/16 06:00 10/21/16 06:00 10/21/16 07:32 10/21/16 06:00 10/21/16 00:00 General alert. tachypnic, anxious CV S1 S2 irregular no murmur/rub/gallop lungs CTA B/L no crackles or wheezing anteriorly Abdomen soft NT/ND Extremities no pedal edema ASSESSMENT AND PLAN: 56yo F with PMH ALS, chronic hypercapnic respiratory failure, HTN, hyperthyroid , afib and dyslipidemia brought into the ER in acute respiratory distress and intubated in the field with cardiac arrest in the ER 1. s/p cardiac arrest- likely due to hypoxia, vs electrolyte abnormality. likely not cardiac origin. no indication for workup at this time 2. Acute on Chronic hypercapnic respiratory failure- likely due to progression of ALS vs HCAP. afebrile. unable to tolerate cpap yesterday due to tachypnea. appears to have periods of anxiety that may be a factor in failing. will give low dose ativan. monitor closely for signs of respiratory suppression. long discussion between SHIPPING CLERK [employer]ACKING room service runner and pt yesterday of the high probability of requiring trach. vent management per ICU. cont TF 3. Lactic acidosis- likely due to chest compresssions. resolved 4. Hypokalemia- resolved 5. Hypophosphatemia- resolved 6. Hyperthyroidism- TSH WNL. cont methimazole 7. HTN- currently normotensive. on metoprolol 8. Afib-currently in rate controlled afib. had to periods of afib with RVR in the evening and this AM. improved with diltiazem IVP. metoprolol switched to q8H dosing. titrate as needed to optimize control. on metoprolol/eliquis 9. DVT ppx- eliquis 10. cont MICU monitoring CC TIME 40 minutes. The care of this patient involved high complexity decision making to prevent further life threatening deterioration of the patient's condition and/or to evaluate & treat vital organ system(s) failure or risk of failure.
[2016-10-21] MEDS: FAMOTIDINE 20 MG/50 ML IVPB 50 ML IVPB SCH ×2 (09:05→21:34)
[2016-10-21] MEDS: METHIMAZOLE 10 MG TABLET (FP) NGT SCH (09:06)
[2016-10-21] MEDS: APIXABAN 2.5 MG TABLET PO SCH ×2 (09:06→21:34)
[2016-10-21] MEDS: MIRTAZAPINE 15 MG TABLET (FP) NGT SCH (09:06)
[2016-10-21] MEDS: CHLORHEXIDINE GLUCONATE 0.12% 15ML CUP MM SCH ×2 (09:10→21:34)
--- NOTE | 2016-10-21 10:03 | PN ---
Progress Note, Physician Chief Complaint: Pt remains intubated; sedated; now with more frequent periods of AF with RVR. History of Present Illness: The patient is a 56 black woman with a PMH of ALS, HTN, hyperthyroidism, and goiter who presented to the ED via EMS for AMS and IESHA. The son states that he was visiting his mother at a halfway facility and noticed that she was not as alert as she normally is. He also noted that she was breathing through her mouth. He states that his mother (the patient) took a nap, then woke up more altered and was staring at the ceiling. This happpened around 8:20 pm, where the son states that the patient look "disheveled". EMS was called and per the son, EMS said her vitals were stable and she was not unconscious. Per EMS she was intubated en route to the ED. - Current Medication List Current Medications: Active Medications Acetaminophen (Tylenol -) 650 mg PO Q4H PRN PRN Reason: FEVER OR PAIN Last Admin: 10/21/16 00:53 Dose: 650 mg Apixaban (Eliquis -) 5 mg PO BID [facility] Last Admin: 10/21/16 09:06 Dose: 5 mg Chlorhexidine Gluconate (Hibiclens For Decolonization -) 1 applic TP HS [facility] Last Admin: 10/20/16 21:33 Dose: 1 applic Chlorhexidine Gluconate (Peridex -) 15 ml MM BID [facility] Last Admin: 10/21/16 09:10 Dose: 15 ml Diltiazem HCl (Cardizem Injection -) 10 mg IVPUSH Q4H PRN PRN Reason: TACHYCARDIA Last Admin: 10/21/16 07:45 Dose: 10 mg Famotidine/Sodium Chloride (Pepcid 20 Mg Premixed Ivpb -) 50 mls @ 100 mls/hr IVPB BID [facility] Last Admin: 10/21/16 09:05 Dose: 100 mls/hr Lidocaine HCl (Xylocaine 2% Jelly) 1 applic TP Q4H PRN PRN Reason: PAIN Last Admin: 10/16/16 20:51 Dose: 1 applic Lorazepam (Ativan Injection -) 1 mg IVPUSH Q4H PRN PRN Reason: ANXIETY Last Admin: 10/21/16 08:50 Dose: 1 mg Methimazole (Tapazole -) 10 mg NGT DAILY [facility] Last Admin: 10/21/16 09:06 Dose: 10 mg Metoprolol Tartrate (Lopressor -) 50 mg PO TID [facility] Last Admin: 10/21/16 03:50 Dose: 50 mg Mirtazapine (Remeron -) 15 mg NGT DAILY [facility] Last Admin: 10/21/16 09:06 Dose: 15 mg Mupirocin (Bactroban Ointment (For Decolonization) -) 1 applic NS BID [facility] Stop: 10/21/16 09:59 Last Admin: 10/20/16 22:33 Dose: 1 applic Scopolamine HBr (Transderm-Scop -) 1 patch TD Q72H [facility] Last Admin: 10/20/16 23:32 Dose: 1 patch - Objective Vital Signs: Vital Signs Temperature 98.9 F 10/21/16 08:00 Pulse Rate 118 H 10/21/16 08:00 Respiratory Rate 19 10/21/16 08:00 Blood Pressure 117/79 10/21/16 08:00 O2 Sat by Pulse Oximetry (%) 96 10/21/16 08:00 Constitutional: Yes: Other (intubated/sedated) Eyes: Yes: WNL Neck: Yes: Decreased ROM Cardiovascular: Yes: S1, S2 Respiratory: Yes: Diminished Gastrointestinal: Yes: Soft Genitourinary: No: Anuria Musculoskeletal: Yes: Muscle Weakness Extremities: Yes: Cool Edema: No Peripheral Pulses WNL: No Peripheral Pulses: Left Doralis Pedis: 1+, Right Dorsalis Pedis: 1+ Neurological: Yes: Weakness Psychiatric: Yes: Other Labs: CBC, BMP 10/21/16 05:20 10/21/16 05:20 INR, PTT INR 1.58 (0.82-1.09) H 10/19/16 05:15 Abnormal Lab Results 10/21/16 10/21/16 05:20 05:20 WBC 11.4 H RBC 3.46 L Hgb 10.4 L Hct 31.2 L Anion Gap 7 L Creatinine 0.5 L Random Glucose 140 H D Calcium 7.9 L AST 11 L D Total Protein 5.3 L Albumin 2.0 L - ....Imaging Other: Image Reviewed (telemetry: NSR; periods of AF with RVR) Problem List - Problems (1) Respiratory failure requiring intubation Assessment/Plan: ALS. CXR: no significant change (left basal anomaly). Code(s): J96.90 - RESPIRATORY FAILURE, UNSP, UNSP W HYPOXIA OR HYPERCAPNIA (2) Bacteremia Assessment/Plan: leukocytosis; anemia. Code(s): R78.81 - BACTEREMIA (3) ALS (amyotrophic lateral sclerosis) Code(s): G12.21 - AMYOTROPHIC LATERAL SCLEROSIS (4) Paroxysmal atrial fibrillation Assessment/Plan: Presently in NSR; periods of PAF. Continue metoprolol (which has been increased in dosing) and apixaban. If necessary, and BP allows, may start diltiazem (normal LVEF). On apixaban for anticoagulation. Code(s): I48.0 - PAROXYSMAL ATRIAL FIBRILLATION (5) Diastolic CHF Code(s): I50.30 - UNSPECIFIED DIASTOLIC (CONGESTIVE) HEART FAILURE
--- NOTE | 2016-10-21 10:15 | PN ---
Progress Note (short form) - Note Progress Note: PULM/CRITICAL CARE FOLLOW UP: Progress Note (short form) Progress Note: pt seen and examined in the ICU 24 HOUR EVENTS: -ongoing GOC discussion re: LTMV -afebrile, hemodynamically stable, few episodes of RVR well tolerated, cardizem given OBJECTIVE: Active Medications Acetaminophen (Tylenol -) 650 mg PO Q4H PRN PRN Reason: FEVER OR PAIN Last Admin: 10/21/16 00:53 Dose: 650 mg Apixaban (Eliquis -) 5 mg PO BID [facility] Last Admin: 10/21/16 09:06 Dose: 5 mg Chlorhexidine Gluconate (Hibiclens For Decolonization -) 1 applic TP HS [facility] Last Admin: 10/20/16 21:33 Dose: 1 applic Chlorhexidine Gluconate (Peridex -) 15 ml MM BID [facility] Last Admin: 10/21/16 09:10 Dose: 15 ml Diltiazem HCl (Cardizem Injection -) 10 mg IVPUSH Q4H PRN PRN Reason: TACHYCARDIA Last Admin: 10/21/16 07:45 Dose: 10 mg Famotidine/Sodium Chloride (Pepcid 20 Mg Premixed Ivpb -) 50 mls @ 100 mls/hr IVPB BID [facility] Last Admin: 10/21/16 09:05 Dose: 100 mls/hr Lidocaine HCl (Xylocaine 2% Jelly) 1 applic TP Q4H PRN PRN Reason: PAIN Last Admin: 10/16/16 20:51 Dose: 1 applic Lorazepam (Ativan Injection -) 1 mg IVPUSH Q4H PRN PRN Reason: ANXIETY Last Admin: 10/21/16 08:50 Dose: 1 mg Methimazole (Tapazole -) 10 mg NGT DAILY [facility] Last Admin: 10/21/16 09:06 Dose: 10 mg Metoprolol Tartrate (Lopressor -) 50 mg PO TID [facility] Last Admin: 10/21/16 03:50 Dose: 50 mg Mirtazapine (Remeron -) 15 mg NGT DAILY [facility] Last Admin: 10/21/16 09:06 Dose: 15 mg Scopolamine HBr (Transderm-Scop -) 1 patch TD Q72H [facility] Last Admin: 10/20/16 23:32 Dose: 1 patch Vital Signs Temp 98.9 F 10/21/16 08:00 Pulse 118 H 10/21/16 08:00 Resp 19 10/21/16 08:00 BP 117/79 10/21/16 08:00 Pulse Ox 96 10/21/16 08:00 Intake & Output 10/20/16 10/20/16 10/21/16 11:59 23:59 11:59 Intake Total 50 1260 1310 Output Total 500 1450 600 Balance -450 -190 710 Weight 74.162 kg 77.111 kg Intake: IVPB 50 50 Oral 0 Tube Feeding 660 660 Tube Irrigant 600 600 Output: Urine 500 1450 600 Carrillo 500 1450 600 Other: Voiding Method Indwelling Catheter Indwelling Catheter Diaper Bowel Movement Yes Yes Yes # Bowel Movements 1 2 Weight Measurement Method Built in [facility] Built in [facility] Gen: Intubated, awake, alert Heart: RRR Lung: decreased breath sounds at the bases Abd: soft, nontender Ext: no edema Neuro: bulbar weakness, non focal. congnitively intact. Lab Results WBC 11.4 K/mm3 (4.0-10.0) H 10/21/16 05:20 RBC 3.46 M/mm3 (3.60-5.2) L 10/21/16 05:20 Hgb 10.4 GM/dL (10.7-15.3) L 10/21/16 05:20 Hct 31.2 % (32.4-45.2) L 10/21/16 05:20 MCV 90.4 fl (80-96) 10/21/16 05:20 MCHC 33.1 g/dl (32.0-36.0) 10/21/16 05:20 RDW 14.6 % (11.6-15.6) 10/21/16 05:20 Plt Count 200 K/MM3 (134-434) 10/21/16 05:20 Sodium 140 mmol/L (136-145) 10/21/16 05:20 Potassium 3.9 mmol/L (3.5-5.1) 10/21/16 05:20 Chloride 103 mmol/L (98-107) 10/21/16 05:20 Carbon Dioxide 30 mmol/L (21-32) 10/21/16 05:20 Anion Gap 7 (8-16) L 10/21/16 05:20 BUN 17 mg/dL (7-18) 10/21/16 05:20 Creatinine 0.5 mg/dL (0.55-1.02) L 10/21/16 05:20 Random Glucose 140 mg/dL (74-106) H D 10/21/16 05:20 Calcium 7.9 mg/dL (8.5-10.1) L 10/21/16 05:20 Blood Type O POSITIVE 10/15/16 22:23 Antibody Screen Negative 10/15/16 22:23 INR 1.58 (0.82-1.09) H 10/19/16 05:15 ASSESSMENT AND PLAN: Acute on Chronic Hypoxic and Hypercapneic Respiratory Failure s/p Cardiac Arrest likely from Respiratory Failure Pneumonia Sepsis Lactic Acidosis resolved Advanced ALS Paroxysmal Atrial Fibrillation with RVR HTN Hyperthyroidism - Off ABX per ID - rate control with metoprolol, cards following - continue anticoagulation - replete lytes - enteral feeds - spontaneous breathing trials daily---> failing with RSB 2/2 neuromuscular weakness/ALS - DVT/GI prophylaxis - Ongoing [facility] discussion regarding long term care pharmacist mech ventilation vs palliative extubation Critically Ill - 35min Antoine Radford [id number]
--- NOTE | 2016-10-21 10:55 | PN ---
Physical Exam: SUBJECTIVE: Patient seen and examined at bedside. Pt now attempts to respond when her name is called- an improvement. However, failed CPAP trial this morning and last night. As per nurse, pt is having loose BMs this morning since rate of feeds was changed. OBJECTIVE: Vital Signs Period Temp Pulse Resp BP Sys/Hatch Pulse Ox Last 24 Hr 98.9 F-100.3 F 80-122 14-19 90-127/57-82 91-96 GENERAL: The patient is awake, was not in distress when I saw her HEAD: Normal with no signs of trauma. EYES: PERRL, extraocular movements intact, sclera anicteric, conjunctiva clear. ENT: difficult to assess d/t vent NECK: Trachea midline, supple. LUNGS: Breath sounds equal, clear to auscultation bilaterally, no wheezes, no crackles, no accessory muscle use. HEART: Regular rate and rhythm, S1, S2 without murmur, rub or gallop. ABDOMEN: Soft, nontender, nondistended, normoactive bowel sounds, no guarding, no rebound EXTREMITIES: 2+ posterior tibial pulses, warm, well-perfused, no edema. NEUROLOGICAL: difficult to assess, but appears improved as pt attempts to respond when spoken to Laboratory Results - last 24 hr 10/20/16 10/20/16 10/20/16 05:20 10:40 11:00 WBC RBC Hgb Hct MCV MCH MCHC RDW Plt Count MPV Neutrophils % Lymphocytes % Monocytes % Eosinophils % Basophils % Sodium 141 Potassium 3.7 Chloride 104 Carbon Dioxide 31 Anion Gap 6 L BUN 18 Creatinine 0.6 Creat Clearance w eGFR POC Glucometer 163.48722 Random Glucose 87 D Calcium 7.7 L Phosphorus Magnesium Total Bilirubin AST ALT Alkaline Phosphatase Total Protein Albumin Triglycerides 100 Cancelled Cholesterol 126 Cancelled Total LDL Cholesterol 74 Cancelled HDL Cholesterol 35 L Cancelled 10/20/16 10/21/16 10/21/16 17:18 05:20 05:20 WBC 11.4 H RBC 3.46 L Hgb 10.4 L Hct 31.2 L MCV 90.4 MCH 30.0 MCHC 33.1 RDW 14.6 Plt Count 200 MPV 10.0 Neutrophils % 77.5 Lymphocytes % 12.0 D Monocytes % 8.7 Eosinophils % 1.5 Basophils % 0.3 Sodium 140 Potassium 3.9 Chloride 103 Carbon Dioxide 30 Anion Gap 7 L BUN 17 Creatinine 0.5 L Creat Clearance w eGFR > 60 POC Glucometer 95.54421 Random Glucose 140 H D Calcium 7.9 L Phosphorus 2.6 Magnesium 2.3 Total Bilirubin 0.4 D AST 11 L D ALT 19 D Alkaline Phosphatase 101 Total Protein 5.3 L Albumin 2.0 L Triglycerides Cholesterol Total LDL Cholesterol HDL Cholesterol 10/21/16 06:28 WBC RBC Hgb Hct MCV MCH MCHC RDW Plt Count MPV Neutrophils % Lymphocytes % Monocytes % Eosinophils % Basophils % Sodium Potassium Chloride Carbon Dioxide Anion Gap BUN Creatinine Creat Clearance w eGFR POC Glucometer 149.43030 Random Glucose Calcium Phosphorus Magnesium Total Bilirubin AST ALT Alkaline Phosphatase Total Protein Albumin Triglycerides Cholesterol Total LDL Cholesterol HDL Cholesterol Active Medications Generic Name Dose Route Start Last Admin Trade Name Freq PRN Reason Stop Dose Admin Acetaminophen 650 mg 10/18/16 20:41 10/21/16 00:53 Tylenol - PO 650 mg Q4H PRN Administration FEVER OR PAIN Apixaban 5 mg 10/17/16 22:00 10/21/16 09:06 Eliquis - PO 5 mg BID [facility] Administration Chlorhexidine Gluconate 1 applic 10/16/16 22:00 10/20/16 21:33 Hibiclens For Decolonization - TP 1 applic HS [facility] Administration Chlorhexidine Gluconate 15 ml 10/16/16 12:15 10/21/16 09:10 Peridex - MM 15 ml BID [facility] Administration Diltiazem HCl 10 mg 10/20/16 18:14 10/21/16 07:45 Cardizem Injection - IVPUSH 10 mg Q4H PRN Administration TACHYCARDIA Famotidine/Sodium Chloride 50 mls @ 100 mls/hr 10/16/16 10:00 10/21/16 09:05 Pepcid 20 Mg Premixed Ivpb - IVPB 100 mls/hr BID [facility] Administration Lidocaine HCl 1 applic 10/16/16 20:38 10/16/16 20:51 Xylocaine 2% Jelly TP 1 applic Q4H PRN Administration PAIN Lorazepam 1 mg 10/21/16 08:22 10/21/16 08:50 Ativan Injection - IVPUSH 1 mg Q4H PRN Administration ANXIETY Methimazole 10 mg 10/16/16 10:00 10/21/16 09:06 Tapazole - NGT 10 mg DAILY [facility] Administration Metoprolol Tartrate 50 mg 10/20/16 22:00 10/21/16 03:50 Lopressor - PO 50 mg TID [facility] Administration Mirtazapine 15 mg 10/16/16 10:00 10/21/16 09:06 Remeron - NGT 15 mg DAILY [facility] Administration Scopolamine HBr 1 patch 10/17/16 19:15 10/20/16 23:32 Transderm-Scop - TD 1 patch Q72H [facility] Administration ASSESSMENT/PLAN: 56 yr old F with PMH ALS, chronic hypercapnic resp failure, HTN, HLD, hyperthyroidism, goiter, intubated to ED via EMS due to resp arrest. In ED, pt had cardiac arrest (V tach) for 5 min, was resuscitated and stabilized, admitted to ICU. # Acute on chronic respiratory failure secondary to possible aspiration pneumonia vs. ALS -Pt has failed CPAP trials today and yesterday -Trach has been discussed w/family as long-term option -Continue osmolite feeds # Diarrhea -most likely d/t change in pt's feeding, will continue to monitor # Anxiety -Continue Ativan 1mg IVP q4 PRN # Paroxysmal afib -Overnight, pt afib into 160's, was given Cardiazem 10mg IVP @ midnight -Normal sinus this AM when I saw pt -Continue Eliquis 5mg NGT daily -Continue rate control with lopressor 50mg TID -Will continue to monitor #Hyperthyroidism -Continue Methimazole #Major Depressive Disorder -Continue Remeron # s/p Cardiac arrest in ED possibly secondary to hypoxia -Troponins negative x2 -Echo: regional wall motion abnormalities can't be ruled out. When compared to Echo 10/10/16: no wall motion abnormalities # Hypophosphatemia-resolved # Lactic acidosis secondary to cardiac arrest-resolved # Hypokalemia-resolved # Hypernatremia-resolved #Palliative care F/E/N IV NS 75 mls/hr Monitor electrolytes continue tube feeds Visit type - Emergency Visit Emergency Visit: No - New Patient This patient is new to me today: No - Critical Care Critical Care patient: Yes Total Critical Care Time (in minutes): 34 Critical Care Statement: The care of this patient involved high complexity decision making to prevent further life threatening deterioration of the patient 's condition and/or to evalute & treat vital organ system(s) failure or risk of failure.
[2016-10-21] MEDS: CHLORHEXIDINE GLUCONATE 4% CLEANSER FOR DECOLONIZATION TP SCH (21:34)
[2016-10-21] MEDS ORDERED: HEMOQUE TEST 1 EACH EACH ONE (21:55)
[2016-10-22] MEDS: dilTIAZem HCL 50 MG/10 ML - 10 ML VIAL IVPUSH PRN ×4 (00:15→17:24)
[2016-10-22] MEDS: METOPROLOL TARTRATE 50 MG TABLET (FP) PO SCH ×3 (05:54→21:25)
[2016-10-22] MEDS ORDERED: dilTIAZem HCL 50 MG/10 ML - 10 ML VIAL IVPUSH ONE (06:01)
[2016-10-22 06:09] LABS: BASOPHIL 0.2 % (0-2.0); EOSINOPHIL 1.2 % (0-4.5); MCH 29.9 pg (25.7-33.7); MCHC 32.8 g/dl (32.0-36.0); MEAN CELL VOLUME 91.2 fl (80-96); MEAN PLT VOLUME 10.4 fl (7.5-11.1); NEUTROPHILS 77.1 % (42.8-82.8); PLATELET COUNT 218 K/MM3 (134-434); RDW 14.9 % (11.6-15.6); WHITE BLOOD COUNT 11.2 K/mm3 (4.0-10.0)
[2016-10-22 06:38] LABS: ANION GAP 7 (8-16); CALCIUM 7.7 mg/dL (8.5-10.1); CO2 32 mmol/L (21-32); CREATININE 0.6 mg/dL (0.55-1.02); GLUCOSE,RANDOM 152 mg/dL (74-106)
--- NOTE | 2016-10-22 07:26 | PN ---
Progress Note, Physician Chief Complaint: ID Icu followup for this 56 year old female with ALS whos sustained cardiac arrest and has been on a ventilator having been admitted 10/15. We had her on antibiotics but stopped them when her cultures were negative and no source of low grade temp found. She still has low grade temperature but otherwise remains stable. Has been in out of atrial fibrillation - Current Medication List Current Medications: Active Medications Acetaminophen (Tylenol -) 650 mg PO Q4H PRN PRN Reason: FEVER OR PAIN Last Admin: 10/21/16 00:53 Dose: 650 mg Apixaban (Eliquis -) 5 mg PO BID [facility] Last Admin: 10/21/16 21:34 Dose: 5 mg Chlorhexidine Gluconate (Hibiclens For Decolonization -) 1 applic TP HS [facility] Last Admin: 10/21/16 21:34 Dose: 1 applic Chlorhexidine Gluconate (Peridex -) 15 ml MM BID [facility] Last Admin: 10/21/16 21:34 Dose: 15 ml Diltiazem HCl (Cardizem Injection -) 10 mg IVPUSH Q4H PRN PRN Reason: TACHYCARDIA Last Admin: 10/22/16 04:00 Dose: 10 mg Famotidine/Sodium Chloride (Pepcid 20 Mg Premixed Ivpb -) 50 mls @ 100 mls/hr IVPB BID [facility] Last Admin: 10/21/16 21:34 Dose: 100 mls/hr Lidocaine HCl (Xylocaine 2% Jelly) 1 applic TP Q4H PRN PRN Reason: PAIN Last Admin: 10/16/16 20:51 Dose: 1 applic Lorazepam (Ativan Injection -) 1 mg IVPUSH Q4H PRN PRN Reason: ANXIETY Last Admin: 10/21/16 23:48 Dose: 1 mg Methimazole (Tapazole -) 10 mg NGT DAILY [facility] Last Admin: 10/21/16 09:06 Dose: 10 mg Metoprolol Tartrate (Lopressor -) 50 mg PO TID [facility] Last Admin: 10/22/16 05:54 Dose: 50 mg Mirtazapine (Remeron -) 15 mg NGT DAILY [facility] Last Admin: 10/21/16 09:06 Dose: 15 mg Scopolamine HBr (Transderm-Scop -) 1 patch TD Q72H [facility] Last Admin: 10/20/16 23:32 Dose: 1 patch - Objective Vital Signs: Vital Signs Temperature 99 F 10/22/16 06:00 Pulse Rate 95 H 10/22/16 06:30 Respiratory Rate 18 10/22/16 06:30 Blood Pressure 127/94 10/22/16 06:30 O2 Sat by Pulse Oximetry (%) 96 10/21/16 22:00 Constitutional: Yes: No Distress, Other (Fully alert Intubated) Neck: Yes: WNL, Supple Cardiovascular: Yes: Regular Rate and Rhythm, S1, S2. No: Murmur Respiratory: Yes: WNL, Regular, CTA Bilaterally, Diminished. No: Rales, Rhonchi Gastrointestinal: Yes: WNL, Normal Bowel Sounds, Soft, Other (PEG feeding tube) . No: Tenderness, Tenderness, Rebound Extremities: No: Cold, Cool, Cyanosis Edema: No Labs: CBC, BMP 10/22/16 05:15 INR, PTT INR 1.58 (0.82-1.09) H 10/19/16 05:15 Problem List - Problems (1) ALS (amyotrophic lateral sclerosis) Code(s): G12.21 - AMYOTROPHIC LATERAL SCLEROSIS (2) Cardiac arrest Code(s): I46.9 - CARDIAC ARREST, CAUSE UNSPECIFIED (3) Respiratory failure requiring intubation Code(s): J96.90 - RESPIRATORY FAILURE, UNSP, UNSP W HYPOXIA OR HYPERCAPNIA (4) Fever Code(s): R50.9 - FEVER, UNSPECIFIED Assessment/Plan Assessment 56 year old female with ALS cardiopulmonary arrest atrial fibrillation Alert in out of atrial fibrillation rapid We see her for low grade temps no apparent source ? atalecta atalectasis related. Off antibiotics Cardiopulmonary arrest Rapid atrial fibrillation Amyotrophic lateral sclerosis Acute respiratory failure Plan Continue to observe off antibiotics Repeat cultures for temp over 101 Will continue to follow for now ICU critical care supervision provided 38 minutes
[2016-10-22] MEDS: ACETAMINOPHEN 325 MG TABLET (FP) PO PRN ×3 (09:50→23:53)
[2016-10-22] MEDS: FAMOTIDINE 20 MG/50 ML IVPB 50 ML IVPB SCH (09:51)
[2016-10-22] MEDS: CHLORHEXIDINE GLUCONATE 0.12% 15ML CUP MM SCH ×2 (09:52→21:25)
[2016-10-22] MEDS: MIRTAZAPINE 15 MG TABLET (FP) NGT SCH (09:52)
[2016-10-22] MEDS: APIXABAN 2.5 MG TABLET PO SCH ×2 (09:53→21:24)
[2016-10-22] MEDS ORDERED: PT OWN MED DRAWER 7, Y5N ONE (10:05)
[2016-10-22] MEDS: METHIMAZOLE 10 MG TABLET (FP) NGT SCH (10:06)
--- NOTE | 2016-10-22 10:58 | PN ---
Progress Note (short form) - Note Progress Note: NEUROLOGY FOLLOW-UP: Events reviewed and discussed with RN and Dr. Grant. Off sedation since Saturday and tolerating ventilator well. Awake and alert. Comfortable. Shallow spontaneous respirations. Tongue atrophy. No antigravity groups but still has grasps B/L IMP: Hypoventilation due to advanced Motor Neuron Disease (ALS). SUGGEST: Begin to wean pt off ventilator following time to fatigue. Fit patient for external compression (vest or Curass) respirator to be used IN CONJUNCTION to CPAP at home. Educate family to use and send Pt home (Rather then NH) if adaptive devices are tolerated. Thank you vey much, Hector Carr MD
--- NOTE | 2016-10-22 11:34 | PN ---
Progress Note, Physician History of Present Illness: seen and examined today in nad. intubated, but awake, eyes open and follows with eyes. - Current Medication List Current Medications: Active Medications Acetaminophen (Tylenol -) 650 mg PO Q4H PRN PRN Reason: FEVER OR PAIN Last Admin: 10/22/16 09:50 Dose: 650 mg Apixaban (Eliquis -) 5 mg PO BID [facility] Last Admin: 10/22/16 09:53 Dose: 5 mg Chlorhexidine Gluconate (Hibiclens For Decolonization -) 1 applic TP HS [facility] Last Admin: 10/21/16 21:34 Dose: 1 applic Chlorhexidine Gluconate (Peridex -) 15 ml MM BID [facility] Last Admin: 10/22/16 09:52 Dose: 15 ml Diltiazem HCl (Cardizem Injection -) 10 mg IVPUSH Q4H PRN PRN Reason: TACHYCARDIA Last Admin: 10/22/16 09:47 Dose: 10 mg Famotidine/Sodium Chloride (Pepcid 20 Mg Premixed Ivpb -) 50 mls @ 100 mls/hr IVPB BID [facility] Last Admin: 10/22/16 09:51 Dose: 100 mls/hr Lidocaine HCl (Xylocaine 2% Jelly) 1 applic TP Q4H PRN PRN Reason: PAIN Last Admin: 10/16/16 20:51 Dose: 1 applic Lorazepam (Ativan Injection -) 1 mg IVPUSH Q4H PRN PRN Reason: ANXIETY Last Admin: 10/22/16 09:47 Dose: 1 mg Methimazole (Tapazole -) 10 mg NGT DAILY [facility] Last Admin: 10/22/16 10:06 Dose: 10 mg Metoprolol Tartrate (Lopressor -) 50 mg PO TID [facility] Last Admin: 10/22/16 05:54 Dose: 50 mg Mirtazapine (Remeron -) 15 mg NGT DAILY [facility] Last Admin: 10/22/16 09:52 Dose: 15 mg Scopolamine HBr (Transderm-Scop -) 1 patch TD Q72H [facility] Last Admin: 10/20/16 23:32 Dose: 1 patch - Objective Vital Signs: Vital Signs Temperature 99 F 10/22/16 06:00 Pulse Rate 95 H 10/22/16 06:30 Respiratory Rate 20 10/22/16 09:11 Blood Pressure 127/94 07/31/17 06:30 O2 Sat by Pulse Oximetry (%) 96 10/21/16 22:00 Constitutional: Yes: No Distress, Calm Eyes: Yes: Conjunctiva Clear, EOM Intact, PERRL HENT: Yes: Atraumatic, Normocephalic Cardiovascular: Yes: Tachycardia, Pulse Irregular, S1, S2. No: Bradycardia, Bruit, JVD, Gallop, Murmur, Rub, S3, S4, Varicosities Respiratory: Yes: Regular, Diminished, Intubated, Mechanically Ventilated. No: Rales, Rhonchi, SOB, Wheezes Gastrointestinal: Yes: Normal Bowel Sounds, Soft. No: Distention, Tenderness Musculoskeletal: Yes: Muscle Weakness Edema: No Peripheral Pulses WNL: Yes Neurological: Yes: Alert Psychiatric: Yes: Alert Labs: CBC, BMP 10/22/16 05:15 10/22/16 05:15 INR, PTT INR 1.58 (0.82-1.09) H 10/19/16 05:15 - ....Imaging Chest X-ray: Report Reviewed, Image Reviewed EKG: Report Reviewed, Image Reviewed Other: Report Reviewed, Image Reviewed (tele-Afib, currently with RVR, intermittent RVR) Assessment/Plan IMP: Advanced ALS Acute respiratory failure, probably multifactorial due to PNA and advanced ALS PAF S/P Cardiopulmonary arrest in setting of acute respiratory failure, with recent echo normal LVEF and negative TnIs this admission REC: 1. PAFib with episodes of RVR -HR above goal overnight and this am, improved with Cardizem IV -cont Lopressor 50mg po TID -relative hypotension early this am but BP improved later this am -if BP tolerates can add Cardizem po if needed for further HR control -for now would cont with Cardizem IV prn for HR control -ContEliquis 2. Acute respiratory failure: -multifactorial, likely due to advanced ALS -off ABx and monitoring for fever -Vent support, consideration being made for trach 3.Cardiopulmonary arrest:-Not a primary cardiac arrest -in setting of acute respiratory failure -LV function normal on echo -cardiac enzymes wnl -no additional cardiac work up needed at this point
[2016-10-22] MEDS: MIDAZOLAM HCL 2 MG/2 ML SINGLE DOSE VIAL IVPUSH PRN ×2 (12:29→19:00)
[2016-10-22] MEDS: dilTIAZem HCL 30 MG TABLET (FP) PO SCH ×2 (13:32→21:25)
--- NOTE | 2016-10-22 14:53 | PN ---
Teaching Attending Note Name of Resident: Manjula Delvalle ATTENDING PHYSICIAN STATEMENT I saw and evaluated the patient. I reviewed the resident's note and discussed the case with the resident. I agree with the resident's findings and plan as documented. SUBJECTIVE:alert, follows simple commands OBJECTIVE: Last Vital Signs Temp Pulse Resp BP Pulse Ox 100.7 F H 98 H 15 111/79 96 10/22/16 10:00 10/22/16 14:00 10/22/16 14:47 10/22/16 14:00 10/21/16 22:00 General alert. CV S1 S2 irregular no murmur/rub/gallop lungs CTA B/L no crackles or wheezing anteriorly Abdomen soft NT/ND Extremities no pedal edema ASSESSMENT AND PLAN: 56yo F with PMH ALS, chronic hypercapnic respiratory failure, HTN, hyperthyroid , afib and dyslipidemia brought into the ER in acute respiratory distress and intubated in the field with cardiac arrest in the ER 1. s/p cardiac arrest- likely due to hypoxia, vs electrolyte abnormality. likely not cardiac origin. no indication for workup at this time 2. Acute on Chronic hypercapnic respiratory failure- likely due to progression of ALS vs HCAP. has intermittent low grade fevers. monitoring off abx. not tolerating cpap trials. as per family she does not want trach. family meeting today with ICU team to discuss options. possible candidate for curiass device if able to extubate. further vent management per medication nurse. 3. Lactic acidosis- likely due to chest compresssions. resolved 4. Hypokalemia- resolved 5. Hypophosphatemia- resolved 6. Hyperthyroidism- TSH WNL. cont methimazole 7. HTN- currently normotensive. on metoprolol 8. Afib-currently in rate controlled afib. periods of RVR in the evening which subsided with cardizem IVP. will start standing cardizem. titrate as needed as tolerated by BP. cont metoprolol at current dosing. on eliquis 9. DVT ppx- eliquis 10. cont MICU monitoring CC TIME 38 minutes. The care of this patient involved high complexity decision making to prevent further life threatening deterioration of the patient's condition and/or to evaluate & treat vital organ system(s) failure or risk of failure.
--- NOTE | 2016-10-22 15:03 | PN ---
Physical Exam: SUBJECTIVE: 56 year old female w/ pmh ALS, chronic respiratory failure, afib, hyperthyroidism on vent s/p cardiac arrest in the ICU for worsening respiratory function. Patient is difficult to communicate with due to ALS status, but is able to answer questions and respond to commands. Family is frequently visiting her and they are able to answer questions. OBJECTIVE: Vital Signs Period Temp Pulse Resp BP Sys/Hatch Pulse Ox Last 24 Hr 99 F-100.7 F 86-149 15-22 86-155/60-121 91-96 GENERAL: The patient is awake, alert, in mild distress HEAD: Normal with no signs of trauma. EYES: PERRL, extraocular movements intact, sclera anicteric, conjunctiva clear. No ptosis. ENT: Ears normal, nares patent, oropharynx clear without exudates, moist mucous membranes. NECK: Trachea midline, full range of motion, supple. LUNGS: Breath sounds equal, patient on vent HEART: tachycardic and irregular, S1, S2 without murmur, rub or gallop. ABDOMEN: Soft, nontender, nondistended, normoactive bowel sounds, no guarding, no rebound, no hepatosplenomegaly, no masses. EXTREMITIES: 2+ pulses, warm, well-perfused, no edema. NEUROLOGICAL: Cranial nerves not able to be assessed, pt has b/l weakness in both upper and lower extremities SKIN: Warm, dry, normal turgor, no rashes or lesions noted CBC, BMP 10/22/16 05:15 10/22/16 05:15 Active Medications Generic Name Dose Route Start Last Admin Trade Name Freq PRN Reason Stop Dose Admin Acetaminophen 650 mg 10/18/16 20:41 10/22/16 09:50 Tylenol - PO 650 mg Q4H PRN Administration FEVER OR PAIN Apixaban 5 mg 10/17/16 22:00 10/22/16 09:53 Eliquis - PO 5 mg BID SILVIA Administration Chlorhexidine Gluconate 1 applic 10/16/16 22:00 10/21/16 21:34 Hibiclens For Decolonization - TP 1 applic HS SILVIA Administration Chlorhexidine Gluconate 15 ml 10/16/16 12:15 10/22/16 09:52 Peridex - MM 15 ml BID SILVIA Administration Diltiazem HCl 10 mg 10/20/16 18:14 10/22/16 09:47 Cardizem Injection - IVPUSH 10 mg Q4H PRN Administration TACHYCARDIA Diltiazem HCl 30 mg 10/22/16 14:00 10/22/16 13:32 Cardizem - PO 30 mg TID SILVIA Administration Famotidine/Sodium Chloride 50 mls @ 100 mls/hr 10/16/16 10:00 10/22/16 09:51 Pepcid 20 Mg Premixed Ivpb - IVPB 100 mls/hr BID SILVIA Administration Lidocaine HCl 1 applic 10/16/16 20:38 10/16/16 20:51 Xylocaine 2% Jelly TP 1 applic Q4H PRN Administration PAIN Lorazepam 1 mg 10/21/16 08:22 10/22/16 09:47 Ativan Injection - IVPUSH 1 mg Q4H PRN Administration ANXIETY Methimazole 10 mg 10/16/16 10:00 10/22/16 10:06 Tapazole - NGT 10 mg DAILY SILVIA Administration Metoprolol Tartrate 50 mg 10/20/16 22:00 10/22/16 13:03 Lopressor - PO 50 mg TID SILVIA Administration Midazolam HCl 2 mg 10/22/16 11:38 10/22/16 12:29 Versed - IVPUSH 2 mg Q1H PRN Administration AGITATION Mirtazapine 15 mg 10/16/16 10:00 10/22/16 09:52 Remeron - NGT 15 mg DAILY SILVIA Administration Scopolamine HBr 1 patch 10/17/16 19:15 10/20/16 23:32 Transderm-Scop - TD 1 patch Q72H SILVIA Administration ASSESSMENT/PLAN: 56 year old female w/ nonimproving chronic respiratory failure on vent, worsening ALS Neuro: patient with ALS -frequent neurochecks -monitor respiratory function -provide versed 2mg Q1 PRN for agitation Cardiovascular: patient has hx of hypertension and afib w/ rvr -continue metoprolol 50mg PO TID -continue cardizem 10mg IV push PRN afib -continue eloquis 5mg for afib Pulmonary: patient with unimproving respiratory function, breathing on vent -family was present for discussion of the possibility of inserting a surgical airway via trach -patient refuses trach, family will attempt to talk her into the procedure. -pt counseled on importance of trach and feeding tube for nutrition Endocrine: pt with hx of hyperthyroidism -continue home methimazole Proph: continue famotidine Problem List - Problems (1) Respiratory failure requiring intubation Code(s): J96.90 - RESPIRATORY FAILURE, UNSP, UNSP W HYPOXIA OR HYPERCAPNIA (2) ALS (amyotrophic lateral sclerosis) Code(s): G12.21 - AMYOTROPHIC LATERAL SCLEROSIS Visit type - Emergency Visit Emergency Visit: No - New Patient This patient is new to me today: Yes Date on this admission: 10/22/16 - Critical Care Critical Care patient: Yes Total Critical Care Time (in minutes): 45 Critical Care Statement: The care of this patient involved high complexity decision making to prevent further life threatening deterioration of the patient 's condition and/or to evalute & treat vital organ system(s) failure or risk of failure.
--- NOTE | 2016-10-22 15:25 | PN ---
Teaching Attending Note Name of Resident: Junito Prieto ATTENDING PHYSICIAN STATEMENT I saw and evaluated the patient. I reviewed the resident's note and discussed the case with the resident. I agree with the resident's findings and plan as documented. SUBJECTIVE: Patient seen and examined in the ICU. Remains intubated, awake and responsive. No pressors. Tachypneic on wean trials (due to poor ability to maintain Minute Ventilation). CXR : LLL atelectasis/consolidations Intake & Output 10/19/16 10/20/16 10/21/16 10/22/16 23:59 23:59 23:59 23:59 Intake Total 2330 1310 2680 1570 Output Total 700 1950 1900 1700 Balance 1630 -640 780 -130 Weight 163 lb 8 oz 163 lb 8 oz 170 lb 164 lb 8 oz Last Vital Signs Temp Pulse Resp BP Pulse Ox 100.7 F H 98 H 15 111/79 96 10/22/16 10:00 10/22/16 14:00 10/22/16 14:47 10/22/16 14:00 10/21/16 22:00 Active Medications Acetaminophen (Tylenol -) 650 mg PO Q4H PRN PRN Reason: FEVER OR PAIN Last Admin: 10/22/16 09:50 Dose: 650 mg Apixaban (Eliquis -) 5 mg PO BID [facility] Last Admin: 10/22/16 09:53 Dose: 5 mg Chlorhexidine Gluconate (Hibiclens For Decolonization -) 1 applic TP HS [facility] Last Admin: 10/21/16 21:34 Dose: 1 applic Chlorhexidine Gluconate (Peridex -) 15 ml MM BID [facility] Last Admin: 10/22/16 09:52 Dose: 15 ml Diltiazem HCl (Cardizem Injection -) 10 mg IVPUSH Q4H PRN PRN Reason: TACHYCARDIA Last Admin: 10/22/16 09:47 Dose: 10 mg Diltiazem HCl (Cardizem -) 30 mg PO TID SILVIA Last Admin: 10/22/16 13:32 Dose: 30 mg Famotidine/Sodium Chloride (Pepcid 20 Mg Premixed Ivpb -) 50 mls @ 100 mls/hr IVPB BID SIL[facility]IA Last Admin: 10/22/16 09:51 Dose: 100 mls/hr Lidocaine HCl (Xylocaine 2% Jelly) 1 applic TP Q4H PRN PRN Reason: PAIN Last Admin: 10/16/16 20:51 Dose: 1 applic Lorazepam (Ativan Injection -) 1 mg IVPUSH Q4H PRN PRN Reason: ANXIETY Last Admin: 10/22/16 09:47 Dose: 1 mg Methimazole (Tapazole -) 10 mg NGT DAILY [facility] Last Admin: 10/22/16 10:06 Dose: 10 mg Metoprolol Tartrate (Lopressor -) 50 mg PO TID [facility] Last Admin: 10/22/16 13:03 Dose: 50 mg Midazolam HCl (Versed -) 2 mg IVPUSH Q1H PRN PRN Reason: AGITATION Last Admin: 10/22/16 12:29 Dose: 2 mg Mirtazapine (Remeron -) 15 mg NGT DAILY [facility] Last Admin: 10/22/16 09:52 Dose: 15 mg Scopolamine HBr (Transderm-Scop -) 1 patch TD Q72H [facility] Last Admin: 10/20/16 23:32 Dose: 1 patch Gen: Intubated, awake Heart: RRR Lung: decreased breath sounds at the bases Abd: soft, nontender Ext: no edema Laboratory Results - last 24 hr 10/21/16 10/21/16 10/22/16 17:41 23:38 05:15 WBC 11.2 H RBC 3.52 L Hgb 10.5 L Hct 32.1 L MCV 91.2 MCH 29.9 MCHC 32.8 RDW 14.9 Plt Count 218 MPV 10.4 Neutrophils % 77.1 Lymphocytes % 12.6 Monocytes % 8.9 Eosinophils % 1.2 Basophils % 0.2 Sodium Potassium Chloride Carbon Dioxide Anion Gap BUN Creatinine POC Glucometer 138.34099 154.12962 Random Glucose Calcium 10/22/16 10/22/16 05:15 05:42 WBC RBC Hgb Hct MCV MCH MCHC RDW Plt Count MPV Neutrophils % Lymphocytes % Monocytes % Eosinophils % Basophils % Sodium 141 Potassium 4.0 Chloride 102 Carbon Dioxide 32 Anion Gap 7 L BUN 19 H Creatinine 0.6 POC Glucometer [phone] Random Glucose 152 H Calcium 7.7 L ASSESSMENT AND PLAN: Acute on Chronic Hypoxic and Hypercapneic Respiratory Failure s/p Cardiac Arrest likely from Respiratory Failure Pneumonia Sepsis Lactic Acidosis resolved Advanced ALS Paroxysmal Atrial Fibrillation with RVR HTN Hyperthyroidism - Off ABX per ID - rate control with metoprolol / cardizem - AC - enteral feeds - spontaneous breathing trials as tolerated - DVT/GI prophylaxis - continue discussions regarding goals of care, advanced directives - Long discussion with /sons/family friend that is a MD. They are in agreement that Trach sounds like an appropriate intervention. They report that the patient has not agreed to the procedure. Dr Grant Critical care time spent in reviewing chart, evaluating patient and formulating plan 35 min
--- NOTE | 2016-10-22 15:35 | PN ---
Physical Exam: SUBJECTIVE: Patient seen and examined at bedside. Overnight, pt febrile 100.7, no medications were administered. Pt required Ativan as well for anxiety and HR into 140-150's, pt was given cardiazem IVP x 3 and returned to sinus. Today, pt attempts to respond when spoken to. No more CPAP trials have been attempted. As per nurse, pt does not want Trach. OBJECTIVE: Vital Signs Period Temp Pulse Resp BP Sys/Hatch Pulse Ox Last 24 Hr 99 F-100.7 F 86-149 15-22 86-155/60-121 91-96 GENERAL: The patient is awake, alert, intubated, in no acute distress. HEAD: Normal with no signs of trauma. EYES: PERRL, sclera anicteric, conjunctiva clear. NECK: Trachea midline, supple. LUNGS: Breath sounds equal, clear to auscultation bilaterally, no wheezes, no crackles, no accessory muscle use. HEART: Regular rate and rhythm, S1, S2 without murmur, rub or gallop. ABDOMEN: Soft, nontender, nondistended, normoactive bowel sounds EXTREMITIES: 2+ posterior tibial pulses, warm, well-perfused, no edema. NEUROLOGICAL: difficult to assess at pt on vent Laboratory Results - last 24 hr 10/21/16 10/21/16 10/22/16 17:41 23:38 05:15 WBC 11.2 H RBC 3.52 L Hgb 10.5 L Hct 32.1 L MCV 91.2 MCH 29.9 MCHC 32.8 RDW 14.9 Plt Count 218 MPV 10.4 Neutrophils % 77.1 Lymphocytes % 12.6 Monocytes % 8.9 Eosinophils % 1.2 Basophils % 0.2 Sodium Potassium Chloride Carbon Dioxide Anion Gap BUN Creatinine POC Glucometer 138.70616 154.03518 Random Glucose Calcium 10/22/16 10/22/16 05:15 05:42 WBC RBC Hgb Hct MCV MCH MCHC RDW Plt Count MPV Neutrophils % Lymphocytes % Monocytes % Eosinophils % Basophils % Sodium 141 Potassium 4.0 Chloride 102 Carbon Dioxide 32 Anion Gap 7 L BUN 19 H Creatinine 0.6 POC Glucometer 173.83074 Random Glucose 152 H Calcium 7.7 L Active Medications Generic Name Dose Route Start Last Admin Trade Name Freq PRN Reason Stop Dose Admin Acetaminophen 650 mg 10/18/16 20:41 10/22/16 09:50 Tylenol - PO 650 mg Q4H PRN Administration FEVER OR PAIN Apixaban 5 mg 10/17/16 22:00 10/22/16 09:53 Eliquis - PO 5 mg BID SILVIA Administration Chlorhexidine Gluconate 1 applic 10/16/16 22:00 10/21/16 21:34 Hibiclens For Decolonization - TP 1 applic HS SILVIA Administration Chlorhexidine Gluconate 15 ml 10/16/16 12:15 10/22/16 09:52 Peridex - MM 15 ml BID SILVIA Administration Diltiazem HCl 10 mg 10/20/16 18:14 10/22/16 09:47 Cardizem Injection - IVPUSH 10 mg Q4H PRN Administration TACHYCARDIA Diltiazem HCl 30 mg 10/22/16 14:00 10/22/16 13:32 Cardizem - PO 30 mg TID SILVIA Administration Famotidine/Sodium Chloride 50 mls @ 100 mls/hr 10/16/16 10:00 10/22/16 09:51 Pepcid 20 Mg Premixed Ivpb - IVPB 100 mls/hr BID SILVIA Administration Lidocaine HCl 1 applic 10/16/16 20:38 10/16/16 20:51 Xylocaine 2% Jelly TP 1 applic Q4H PRN Administration PAIN Lorazepam 1 mg 10/21/16 08:22 10/22/16 09:47 Ativan Injection - IVPUSH 1 mg Q4H PRN Administration ANXIETY Methimazole 10 mg 10/16/16 10:00 10/22/16 10:06 Tapazole - NGT 10 mg DAILY SILVIA Administration Metoprolol Tartrate 50 mg 10/20/16 22:00 10/22/16 13:03 Lopressor - PO 50 mg TID SILVIA Administration Midazolam HCl 2 mg 10/22/16 11:38 10/22/16 12:29 Versed - IVPUSH 2 mg Q1H PRN Administration AGITATION Mirtazapine 15 mg 10/16/16 10:00 10/22/16 09:52 Remeron - NGT 15 mg DAILY SILVIA Administration Scopolamine HBr 1 patch 10/17/16 19:15 10/20/16 23:32 Transderm-Scop - TD 1 patch Q72H SILVIA Administration ASSESSMENT/PLAN: 56 yr old F with PMH ALS, chronic hypercapnic resp failure, HTN, HLD, hyperthyroidism, goiter, intubated to ED via EMS due to resp arrest. In ED, pt had cardiac arrest (V tach) for 5 min, was resuscitated and stabilized, admitted to ICU. # Acute on chronic respiratory failure secondary to possible aspiration pneumonia vs. ALS -Trach has been discussed with family- state that pt herself does not want Trach , ongoing discussion -Palliative on board -Continue osmolite feeds -Will f/u and find out about Curiss device # Anxiety -Continue Ativan 1mg IVP q4 PRN # Paroxysmal afib -Cardiazem 30 TID added -Continue rate control with lopressor 50mg TID -Will continue to monitor #Hyperthyroidism -Continue Methimazole #Major Depressive Disorder -Continue Remeron # s/p Cardiac arrest in ED possibly secondary to hypoxia -Troponins negative x2 -Echo: regional wall motion abnormalities can't be ruled out. When compared to Echo 10/10/16: no wall motion abnormalities # Diarrhea-resolved # Hypophosphatemia-resolved # Lactic acidosis secondary to cardiac arrest-resolved # Hypokalemia-resolved # Hypernatremia-resolved #Palliative care F/E/N IV NS 75 mls/hr Monitor electrolytes continue tube feeds Visit type - Emergency Visit Emergency Visit: No - New Patient This patient is new to me today: No - Critical Care Critical Care patient: Yes Total Critical Care Time (in minutes): 32 Critical Care Statement: The care of this patient involved high complexity decision making to prevent further life threatening deterioration of the patient 's condition and/or to evalute & treat vital organ system(s) failure or risk of failure.
[2016-10-22] MEDS: RANITIDINE HCL 150 MG/10 ML UNIT-DOSE CUP NGT SCH (21:24)
[2016-10-22] MEDS: CHLORHEXIDINE GLUCONATE 4% CLEANSER FOR DECOLONIZATION TP SCH (21:25)
[2016-10-22] MEDS ORDERED: ACETAMINOPHEN/CAFFEINE/BUTALBITAL 1 TAB ONE (21:44)
[2016-10-23] MEDS ORDERED: PT OWN MED DRAWER 7, Y5N ONE (00:29)
[2016-10-23] MEDS: dilTIAZem HCL 50 MG/10 ML - 10 ML VIAL IVPUSH PRN (01:00)
[2016-10-23] MEDS: METOPROLOL TARTRATE 50 MG TABLET (FP) PO SCH ×3 (05:06→21:36)
[2016-10-23] MEDS: dilTIAZem HCL 30 MG TABLET (FP) PO SCH ×2 (05:06→14:28)
[2016-10-23 06:23] LABS: BASOPHIL 0.3 % (0-2.0); EOSINOPHIL 1.3 % (0-4.5); MCH 30.7 pg (25.7-33.7); MCHC 33.7 g/dl (32.0-36.0); MEAN CELL VOLUME 90.9 fl (80-96); MEAN PLT VOLUME 10.5 fl (7.5-11.1); NEUTROPHILS 76.2 % (42.8-82.8); PLATELET COUNT 237 K/MM3 (134-434); RDW 14.6 % (11.6-15.6); WHITE BLOOD COUNT 10.5 K/mm3 (4.0-10.0)
[2016-10-23 06:50] LABS: ANION GAP 4 (8-16); CALCIUM 7.5 mg/dL (8.5-10.1); CO2 32 mmol/L (21-32); CREATININE 0.4 mg/dL (0.55-1.02); GLUCOSE,RANDOM 150 mg/dL (74-106)
--- NOTE | 2016-10-23 08:55 | PN ---
Progress Note (short form) - Note Progress Note: alert remains intubated Vital Signs Period Temp Pulse Resp BP Sys/Hatch Pulse Ox Last 24 Hr 99.8 F-100.7 F 88-149 15-22 82-155/61-121 96-98 cor-rrr lungs decreased bs at bases- left greater then right abd soft,nt ext no edema CBC, BMP 10/23/16 05:20 10/23/16 05:20 cxray (yesterday) increasing fluid and atelectasis left lung Microbiology 10/15/16 22:23 Blood - Peripheral Venous Blood Culture - Final NO GROWTH AFTER 5 DAYS INCUBATION 10/15/16 22:23 Blood - Peripheral Venous Blood Culture - Final NO GROWTH AFTER 5 DAYS INCUBATION 10/16/16 22:00 Sputum - Endotrachea Suction/Ventilator Gram Stain - Final 10/16/16 22:00 Sputum - Endotrachea Suction/Ventilator Sputum Culture - Final Yeast Like Organism 10/16/16 01:35 Nasopharyngeal Swab Respiratory Virus (PCR) - Final 10/15/16 22:23 Urine - Urine Carrillo Urine Culture - Final NO GROWTH OBTAINED 10/16/16 22:00 Urine For Antigen Detection Legionella Antigen - Final 10/16/16 22:00 Urine For Antigen Detection Streptococcus pneumoniae Antigen (M - Final a/p efren grade fevers secondary to worsening atelectasis?- repeat cxray and chest PT ordered repeat cultures today resp failure ALS s/p cardiac arrest afib-have asked cardiology to re-evaluate
--- NOTE | 2016-10-23 08:56 | PN ---
Progress Note, Physician Chief Complaint: remains intubated Heart rate at times elevated to 130-140bpm, appears to be in flutter. History of Present Illness: BP also running low. - Current Medication List Current Medications: Active Medications Acetaminophen (Tylenol -) 650 mg PO Q4H PRN PRN Reason: FEVER OR PAIN Last Admin: 10/22/16 23:53 Dose: 650 mg Apixaban (Eliquis -) 5 mg PO BID [facility] Last Admin: 10/22/16 21:24 Dose: 5 mg Chlorhexidine Gluconate (Hibiclens For Decolonization -) 1 applic TP HS [facility] Last Admin: 10/22/16 21:25 Dose: 1 applic Chlorhexidine Gluconate (Peridex -) 15 ml MM BID [facility] Last Admin: 10/22/16 21:25 Dose: 15 ml Diltiazem HCl (Cardizem Injection -) 10 mg IVPUSH Q4H PRN PRN Reason: TACHYCARDIA Last Admin: 10/23/16 01:00 Dose: 10 mg Diltiazem HCl (Cardizem -) 30 mg PO TID [facility] Last Admin: 10/23/16 05:06 Dose: 30 mg Lidocaine HCl (Xylocaine 2% Jelly) 1 applic TP Q4H PRN PRN Reason: PAIN Last Admin: 10/16/16 20:51 Dose: 1 applic Lorazepam (Ativan Injection -) 1 mg IVPUSH Q4H PRN PRN Reason: ANXIETY Last Admin: 10/22/16 21:25 Dose: 1 mg Methimazole (Tapazole -) 10 mg NGT DAILY [facility] Last Admin: 10/22/16 10:06 Dose: 10 mg Metoprolol Tartrate (Lopressor -) 50 mg PO TID [facility] Last Admin: 10/23/16 05:06 Dose: 50 mg Midazolam HCl (Versed -) 2 mg IVPUSH Q1H PRN PRN Reason: AGITATION Last Admin: 10/22/16 19:00 Dose: 2 mg Mirtazapine (Remeron -) 15 mg NGT DAILY [facility] Last Admin: 10/22/16 09:52 Dose: 15 mg Ranitidine HCl (Zantac Oral Solution -) 150 mg NGT BID [facility] Last Admin: 10/22/16 21:24 Dose: 150 mg Scopolamine HBr (Transderm-Scop -) 1 patch TD Q72H [facility] Last Admin: 10/20/16 23:32 Dose: 1 patch - Objective Vital Signs: Vital Signs Temperature 99.8 F H 10/23/16 06:00 Pulse Rate 88 10/23/16 06:00 Respiratory Rate 20 10/23/16 07:20 Blood Pressure 89/61 10/23/16 06:00 O2 Sat by Pulse Oximetry (%) 98 10/22/16 19:38 HENT: Yes: Other (+ ETT) Cardiovascular: Yes: Regular Rate and Rhythm Respiratory: Yes: Other (= breath sounds bilaterally) Gastrointestinal: Yes: Soft Edema: No Neurological: Yes: Other (opens eyes to name) Labs: CBC, BMP 10/23/16 05:20 10/23/16 05:20 INR, PTT INR 1.58 (0.82-1.09) H 10/19/16 05:15 Laboratory Tests 10/23/16 10/23/16 05:20 05:20 WBC 10.5 H Hgb 9.6 L Plt Count 237 Sodium 139 Potassium 3.8 Creatinine 0.4 L D - ....Imaging EKG: Image Reviewed Problem List - Problems (1) Cardiac arrest Code(s): I46.9 - CARDIAC ARREST, CAUSE UNSPECIFIED (2) Pneumonia Code(s): J18.9 - PNEUMONIA, UNSPECIFIED ORGANISM Qualifiers: Pneumonia type: due to unspecified organism Laterality: left Lung location: upper lobe of lung Qualified Code(s): J18.1 - Lobar pneumonia, unspecified organism (3) Respiratory failure requiring intubation Code(s): J96.90 - RESPIRATORY FAILURE, UNSP, UNSP W HYPOXIA OR HYPERCAPNIA (4) ALS (amyotrophic lateral sclerosis) Code(s): G12.21 - AMYOTROPHIC LATERAL SCLEROSIS Assessment/Plan IMP: Advanced ALS Acute respiratory failure, probably multifactorial due to PNA and advanced ALS PAF S/P Cardiopulmonary arrest in setting of acute respiratory failure, with recent echo normal LVEF and negative TnIs this admission REC: 1. PAFib with episodes of RVR; periods of Aflutter: -cont Lopressor 50mg po TID -relative hypotension at times -Cont Eliquis -Can give Digoxin 0.25 mg IV x1 if BP remains low for additional heart rate control. May need full load depending on clinical course. 2. Acute respiratory failure: -multifactorial, likely due to advanced ALS -off ABx and monitoring for fever -Vent support, consideration being made for trach 3.Cardiopulmonary arrest:-Not a primary cardiac arrest -in setting of acute respiratory failure -LV function normal on echo -cardiac enzymes wnl -no additional cardiac work up needed at this point
[2016-10-23] MEDS ORDERED: DIGOXIN 0.5 MG/2 ML AMPUL IVPUSH PRN (08:57)
[2016-10-23] MEDS: MIDAZOLAM HCL 2 MG/2 ML SINGLE DOSE VIAL IVPUSH PRN ×4 (09:00→19:30)
--- NOTE | 2016-10-23 09:00 | PN ---
Progress Note, Physician - Current Medication List Current Medications: Active Medications Acetaminophen (Tylenol -) 650 mg PO Q4H PRN PRN Reason: FEVER OR PAIN Last Admin: 10/22/16 23:53 Dose: 650 mg Apixaban (Eliquis -) 5 mg PO BID [facility] Last Admin: 10/22/16 21:24 Dose: 5 mg Chlorhexidine Gluconate (Hibiclens For Decolonization -) 1 applic TP HS [facility] Last Admin: 10/22/16 21:25 Dose: 1 applic Chlorhexidine Gluconate (Peridex -) 15 ml MM BID [facility] Last Admin: 10/22/16 21:25 Dose: 15 ml Digoxin (Lanoxin Injection -) 0.25 mg IVPUSH ONCE PRN PRN Reason: TACHYCARDIA Diltiazem HCl (Cardizem Injection -) 10 mg IVPUSH Q4H PRN PRN Reason: TACHYCARDIA Last Admin: 10/23/16 01:00 Dose: 10 mg Diltiazem HCl (Cardizem -) 30 mg PO TID [facility] Last Admin: 10/23/16 05:06 Dose: 30 mg Lidocaine HCl (Xylocaine 2% Jelly) 1 applic TP Q4H PRN PRN Reason: PAIN Last Admin: 10/16/16 20:51 Dose: 1 applic Lorazepam (Ativan Injection -) 1 mg IVPUSH Q4H PRN PRN Reason: ANXIETY Last Admin: 10/22/16 21:25 Dose: 1 mg Methimazole (Tapazole -) 10 mg NGT DAILY [facility] Last Admin: 10/22/16 10:06 Dose: 10 mg Metoprolol Tartrate (Lopressor -) 50 mg PO TID [facility] Last Admin: 10/23/16 05:06 Dose: 50 mg Midazolam HCl (Versed -) 2 mg IVPUSH Q1H PRN PRN Reason: AGITATION Last Admin: 10/22/16 19:00 Dose: 2 mg Mirtazapine (Remeron -) 15 mg NGT DAILY [facility] Last Admin: 10/22/16 09:52 Dose: 15 mg Ranitidine HCl (Zantac Oral Solution -) 150 mg NGT BID [facility] Last Admin: 10/22/16 21:24 Dose: 150 mg Scopolamine HBr (Transderm-Scop -) 1 patch TD Q72H [facility] Last Admin: 10/20/16 23:32 Dose: 1 patch - Objective Vital Signs: Vital Signs Temperature 99.8 F H 10/23/16 06:00 Pulse Rate 88 10/23/16 06:00 Respiratory Rate 20 10/23/16 07:20 Blood Pressure 89/61 10/23/16 06:00 O2 Sat by Pulse Oximetry (%) 98 10/22/16 19:38 Labs: CBC, BMP 10/23/16 05:20 10/23/16 05:20 INR, PTT INR 1.58 (0.82-1.09) H 10/19/16 05:15 Problem List - Problems (1) Cardiac arrest Code(s): I46.9 - CARDIAC ARREST, CAUSE UNSPECIFIED (2) Pneumonia Code(s): J18.9 - PNEUMONIA, UNSPECIFIED ORGANISM Qualifiers: Pneumonia type: due to unspecified organism Laterality: left Lung location: upper lobe of lung Qualified Code(s): J18.1 - Lobar pneumonia, unspecified organism (3) Respiratory failure requiring intubation Code(s): J96.90 - RESPIRATORY FAILURE, UNSP, UNSP W HYPOXIA OR HYPERCAPNIA (4) ALS (amyotrophic lateral sclerosis) Code(s): G12.21 - AMYOTROPHIC LATERAL SCLEROSIS
[2016-10-23] MEDS: RANITIDINE HCL 150 MG/10 ML UNIT-DOSE CUP NGT SCH ×2 (09:31→21:36)
[2016-10-23] MEDS: APIXABAN 2.5 MG TABLET PO SCH ×2 (09:31→21:36)
[2016-10-23] MEDS: ACETAMINOPHEN 325 MG TABLET (FP) PO PRN (09:32)
[2016-10-23] MEDS: CHLORHEXIDINE GLUCONATE 0.12% 15ML CUP MM SCH ×2 (09:33→23:09)
[2016-10-23] MEDS: MIRTAZAPINE 15 MG TABLET (FP) NGT SCH (09:33)
[2016-10-23] MEDS ORDERED: AMIODARONE HCL 150 MG/3 ML VIAL IVPB ONE (11:00)
--- NOTE | 2016-10-23 12:45 | PN ---
Teaching Attending Note Name of Resident: Junito Prieto ATTENDING PHYSICIAN STATEMENT I saw and evaluated the patient. I reviewed the resident's note and discussed the case with the resident. I agree with the resident's findings and plan as documented. SUBJECTIVE: Patient seen and examined in the ICU. Remains intubated, awake and responsive. No pressors. Remains tachypneic on wean trials (due to poor ability to maintain Minute Ventilation). Still with periods of Rapid AFib/Flutter. CXR : LLL atelectasis/consolidations Intake & Output 10/19/16 10/20/16 10/21/16 10/22/16 23:59 23:59 23:59 23:59 Intake Total 2330 1310 2680 1570 Output Total 700 1950 1900 1700 Balance 1630 -640 780 -130 Weight 163 lb 8 oz 163 lb 8 oz 170 lb 164 lb 8 oz Last Vital Signs Temp Pulse Resp BP Pulse Ox 100.7 F H 98 H 15 111/79 96 10/22/16 10:00 10/22/16 14:00 10/22/16 14:47 10/22/16 14:00 10/21/16 22:00 Active Medications Acetaminophen (Tylenol -) 650 mg PO Q4H PRN PRN Reason: FEVER OR PAIN Last Admin: 10/22/16 09:50 Dose: 650 mg Apixaban (Eliquis -) 5 mg PO BID [facility] Last Admin: 10/22/16 09:53 Dose: 5 mg Chlorhexidine Gluconate (Hibiclens For Decolonization -) 1 applic TP HS [facility] Last Admin: 10/21/16 21:34 Dose: 1 applic Chlorhexidine Gluconate (Peridex -) 15 ml MM BID [facility] Last Admin: 10/22/16 09:52 Dose: 15 ml Diltiazem HCl (Cardizem Injection -) 10 mg IVPUSH Q4H PRN PRN Reason: TACHYCARDIA Last Admin: 10/22/16 09:47 Dose: 10 mg Diltiazem HCl (Cardizem -) 30 mg PO TID [facility] Last Admin: 10/22/16 13:32 Dose: 30 mg Famotidine/Sodium Chloride (Pepcid 20 Mg Premixed Ivpb -) 50 mls @ 100 mls/hr IVPB BID [facility] Last Admin: 10/22/16 09:51 Dose: 100 mls/hr Lidocaine HCl (Xylocaine 2% Jelly) 1 applic TP Q4H PRN PRN Reason: PAIN Last Admin: 10/16/16 20:51 Dose: 1 applic Lorazepam (Ativan Injection -) 1 mg IVPUSH Q4H PRN PRN Reason: ANXIETY Last Admin: 10/22/16 09:47 Dose: 1 mg Methimazole (Tapazole -) 10 mg NGT DAILY [facility] Last Admin: 10/22/16 10:06 Dose: 10 mg Metoprolol Tartrate (Lopressor -) 50 mg PO TID [facility] Last Admin: 10/22/16 13:03 Dose: 50 mg Midazolam HCl (Versed -) 2 mg IVPUSH Q1H PRN PRN Reason: AGITATION Last Admin: 10/22/16 12:29 Dose: 2 mg Mirtazapine (Remeron -) 15 mg NGT DAILY [facility] Last Admin: 10/22/16 09:52 Dose: 15 mg Scopolamine HBr (Transderm-Scop -) 1 patch TD Q72H [facility] Last Admin: 10/20/16 23:32 Dose: 1 patch Gen: Intubated, awake Heart: RRR Lung: decreased breath sounds at the bases Abd: soft, nontender Ext: no edema Laboratory Results - last 24 hr 10/22/16 10/23/16 10/23/16 23:16 05:20 05:20 WBC 10.5 H RBC 3.12 L Hgb 9.6 L Hct 28.3 L MCV 90.9 MCH 30.7 MCHC 33.7 RDW 14.6 Plt Count 237 MPV 10.5 Neutrophils % 76.2 Lymphocytes % 11.5 Monocytes % 10.7 H Eosinophils % 1.3 Basophils % 0.3 Sodium 139 Potassium 3.8 Chloride 103 Carbon Dioxide 32 Anion Gap 4 L BUN 17 Creatinine 0.4 L D POC Glucometer [phone] Random Glucose 150 H Calcium 7.5 L 10/23/16 06:04 WBC RBC Hgb Hct MCV MCH MCHC RDW Plt Count MPV Neutrophils % Lymphocytes % Monocytes % Eosinophils % Basophils % Sodium Potassium Chloride Carbon Dioxide Anion Gap BUN Creatinine POC Glucometer [phone] Random Glucose Calcium ASSESSMENT AND PLAN: Acute on Chronic Hypoxic and Hypercapneic Respiratory Failure s/p Cardiac Arrest likely from Respiratory Failure Pneumonia Sepsis Lactic Acidosis resolved Advanced ALS Paroxysmal Atrial Fibrillation with RVR HTN Hyperthyroidism - Off ABX per ID - rate control with metoprolol / cardizem / digoxin per Cardiology - AC - enteral feeds - spontaneous breathing trials as tolerated - DVT/GI prophylaxis - Check TSH - continue discussions regarding goals of care, advanced directives - Long discussion with /sons/family friend that is a MD. They are in agreement that Trach sounds like an appropriate intervention. They report that the patient has not agreed to the procedure. Dr Grant Critical care time spent in reviewing chart, evaluating patient and formulating plan 35 min
[2016-10-23] MEDS: METHIMAZOLE 10 MG TABLET (FP) NGT SCH (13:11)
--- NOTE | 2016-10-23 14:08 | PN ---
Physical Exam: SUBJECTIVE: 56 year old female w/ pmh ALS, chronic respiratory failure, afib, hyperthyroidism on vent s/p cardiac arrest in the ICU for worsening respiratory function. Patient is difficult to communicate with due to ALS status, but is able to answer questions and respond to commands. Family is frequently visiting her and they are able to answer questions. OBJECTIVE: Vital Signs Period Temp Pulse Resp BP Sys/Hatch Pulse Ox Last 24 Hr 99.8 F-100.3 F 88-164 14-24 82-140/61-99 96-98 GENERAL: The patient is awake, alert, in no acute distress HEAD: Normal with no signs of trauma. EYES: PERRL, extraocular movements intact, sclera anicteric, conjunctiva clear. No ptosis. ENT: Ears normal, nares patent, oropharynx clear without exudates, moist mucous membranes. NECK: Trachea midline, full range of motion, supple. LUNGS: Breath sounds equal, patient breathing on vent HEART: tachycardic (122) and irregular, S1, S2 without murmur, rub or gallop. ABDOMEN: Soft, nontender, nondistended, normoactive bowel sounds, no guarding, no rebound, no hepatosplenomegaly, no masses. EXTREMITIES: 2+ pulses, warm, well-perfused, no edema. NEUROLOGICAL: Cranial nerves not able to be assessed, pt has b/l weakness in both upper and lower extremities, 0/5 muscle strength in b/l upper extremities, can grasp with b/l hands SKIN: Warm, dry, normal turgor, no rashes or lesions noted CBC, BMP 10/23/16 05:20 10/23/16 05:20 Active Medications Generic Name Dose Route Start Last Admin Trade Name Freq PRN Reason Stop Dose Admin Acetaminophen 650 mg 10/18/16 20:41 10/23/16 09:32 Tylenol - PO 650 mg Q4H PRN Administration FEVER OR PAIN Apixaban 5 mg 10/17/16 22:00 10/23/16 09:31 Eliquis - PO 5 mg BID [facility] Administration Chlorhexidine Gluconate 1 applic 10/16/16 22:00 10/22/16 21:25 Hibiclens For Decolonization - TP 1 applic HS [facility] Administration Chlorhexidine Gluconate 15 ml 10/16/16 12:15 10/23/16 09:33 Peridex - MM 15 ml BID [facility] Administration Digoxin 0.25 mg 10/23/16 08:57 10/23/16 09:27 Lanoxin Injection - IVPUSH 0.25 mg ONCE PRN Administration TACHYCARDIA Diltiazem HCl 10 mg 10/20/16 18:14 10/23/16 01:00 Cardizem Injection - IVPUSH 10 mg Q4H PRN Administration TACHYCARDIA Diltiazem HCl 30 mg 10/22/16 14:00 10/23/16 05:06 Cardizem - PO 30 mg TID [facility] Administration Lidocaine HCl 1 applic 10/16/16 20:38 10/16/16 20:51 Xylocaine 2% Jelly TP 1 applic Q4H PRN Administration PAIN Lorazepam 1 mg 10/21/16 08:22 10/23/16 13:09 Ativan Injection - IVPUSH 1 mg Q4H PRN Administration ANXIETY Methimazole 10 mg 10/16/16 10:00 10/23/16 13:11 Tapazole - NGT 10 mg DAILY [facility] Administration Metoprolol Tartrate 50 mg 10/20/16 22:00 10/23/16 05:06 Lopressor - PO 50 mg TID [facility] Administration Midazolam HCl 2 mg 10/22/16 11:38 10/23/16 11:00 Versed - IVPUSH 2 mg Q1H PRN Administration AGITATION Mirtazapine 15 mg 10/16/16 10:00 10/23/16 09:33 Remeron - NGT 15 mg DAILY [facility] Administration Ranitidine HCl 150 mg 10/22/16 22:00 10/23/16 09:31 Zantac Oral Solution - NGT 150 mg BID [facility] Administration Scopolamine HBr 1 patch 10/17/16 19:15 10/20/16 23:32 Transderm-Scop - TD 1 patch Q72H [facility] Administration CXR: complete L sided atelectasis ASSESSMENT/PLAN: 56 year old female with nonimproving chronic respiratory failure on vent with worsening ALS and paroxysmal atrial fibrillation with rapid ventricular response. Neuro: patient with worsening ALS -frequent neurochecks -monitor respiratory function -provide versed 2mg Q1 PRN for agitation Cardiovascular: patient has hx of hypertension and afib w/ rvr -continue metoprolol 50mg PO TID -continue cardizem 10mg IV push PRN afib -certified nurse aide started on cardizem 30 TID -pt continues to have Afib in the 160s-170s -start cardizem drip, f/u with certified nurse aide -continue eloquis 5mg for afib Pulmonary: patient with unimproving respiratory function, breathing on vent -family was present for discussion of the possibility of inserting a surgical airway via trach -patient refused trach, family will attempt to talk her into the procedure. -pt counseled on importance of trach and feeding tube for nutrition -AM CXR Endocrine: pt with hx of hyperthyroidism -continue home methimazole Proph: continue famotidine Dispo: -Continue discussing with family plans for trach and post-hospital care Problem List - Problems (1) Respiratory failure requiring intubation Code(s): J96.90 - RESPIRATORY FAILURE, UNSP, UNSP W HYPOXIA OR HYPERCAPNIA (2) ALS (amyotrophic lateral sclerosis) Code(s): G12.21 - AMYOTROPHIC LATERAL SCLEROSIS Visit type - Emergency Visit Emergency Visit: No - New Patient This patient is new to me today: No - Critical Care Critical Care patient: Yes Total Critical Care Time (in minutes): 40 Critical Care Statement: The care of this patient involved high complexity decision making to prevent further life threatening deterioration of the patient 's condition and/or to evalute & treat vital organ system(s) failure or risk of failure.
[2016-10-23] MEDS ORDERED: POTASSIUM CHLORIDE ORAL LIQUID 20 MEQ/15 ML PO ONE (14:12)
[2016-10-23] MEDS ORDERED: dilTIAZem HCL 125 MG/25 ML - 5 ML VIAL ONE ×2 (14:31→20:47)
[2016-10-23] MEDS: DILTIAZEM INJECTION 125 MG in DEXTROSE 5%-WATER - 100 ML IVPB SCH ×3 (15:37→20:00)
--- NOTE | 2016-10-23 17:42 | PN ---
Physical Exam: SUBJECTIVE: Patient seen and examined at bedside. In and out of atrial flutter. Pt does not appear to be agitated. OBJECTIVE: Vital Signs Period Temp Pulse Resp BP Sys/Hatch Pulse Ox Last 24 Hr 99.8 F-100.3 F 88-164 14-24 82-140/61-91 96-98 GENERAL: The patient is awake, in mild distress HEAD: Normal with no signs of trauma. EYES: PERRL, extraocular movements intact, sclera anicteric, conjunctiva clear. NECK: Trachea midline, supple. LUNGS: Breath sounds equal, clear to auscultation bilaterally, no wheezes, no crackles, no accessory muscle use. HEART: irregular rate and rhythm, S1, S2 without murmur, rub or gallop. ABDOMEN: Soft, nontender, nondistended, normoactive bowel sounds, no guarding, no rebound EXTREMITIES: 2+ posterior tibial pulses, warm, well-perfused, no edema. NEUROLOGICAL: difficult to assess, pt is responsive when asked questions Laboratory Results - last 24 hr 10/22/16 10/23/16 10/23/16 23:16 05:20 05:20 WBC 10.5 H RBC 3.12 L Hgb 9.6 L Hct 28.3 L MCV 90.9 MCH 30.7 MCHC 33.7 RDW 14.6 Plt Count 237 MPV 10.5 Neutrophils % 76.2 Lymphocytes % 11.5 Monocytes % 10.7 H Eosinophils % 1.3 Basophils % 0.3 Sodium 139 Potassium 3.8 Chloride 103 Carbon Dioxide 32 Anion Gap 4 L BUN 17 Creatinine 0.4 L D POC Glucometer 163.02448 Random Glucose 150 H Calcium 7.5 L 10/23/16 06:04 WBC RBC Hgb Hct MCV MCH MCHC RDW Plt Count MPV Neutrophils % Lymphocytes % Monocytes % Eosinophils % Basophils % Sodium Potassium Chloride Carbon Dioxide Anion Gap BUN Creatinine POC Glucometer [phone] Random Glucose Calcium Active Medications Generic Name Dose Route Start Last Admin Trade Name Freq PRN Reason Stop Dose Admin Acetaminophen 650 mg 10/18/16 20:41 10/23/16 09:32 Tylenol - PO 650 mg Q4H PRN Administration FEVER OR PAIN Albuterol/Ipratropium 1 amp 10/23/16 18:00 Duoneb - NEB QIDR [facility] Apixaban 5 mg 10/17/16 22:00 10/23/16 09:31 Eliquis - PO 5 mg BID [facility] Administration Chlorhexidine Gluconate 1 applic 10/16/16 22:00 10/22/16 21:25 Hibiclens For Decolonization - TP 1 applic HS [facility] Administration Chlorhexidine Gluconate 15 ml 10/16/16 12:15 10/23/16 09:33 Peridex - MM 15 ml BID [facility] Administration Digoxin 0.25 mg 10/23/16 08:57 10/23/16 09:27 Lanoxin Injection - IVPUSH 0.25 mg ONCE PRN Administration TACHYCARDIA Diltiazem HCl 10 mg 10/20/16 18:14 10/23/16 01:00 Cardizem Injection - IVPUSH 10 mg Q4H PRN Administration TACHYCARDIA Diltiazem HCl 125 mg/ Dextrose 125 mls @ 5 mls/hr 10/23/16 14:30 10/23/16 15:37 IVPB 5 mls/hr TITR [facility] Administration Protocol 5 MG/HR Lidocaine HCl 1 applic 10/16/16 20:38 10/16/16 20:51 Xylocaine 2% Jelly TP 1 applic Q4H PRN Administration PAIN Lorazepam 1 mg 10/21/16 08:22 10/23/16 13:09 Ativan Injection - IVPUSH 1 mg Q4H PRN Administration ANXIETY Methimazole 10 mg 10/16/16 10:00 10/23/16 13:11 Tapazole - NGT 10 mg DAILY [facility] Administration Methylprednisolone Sodium Succinate 40 mg 10/23/16 16:30 Solu-Medrol - IVPB BID [facility] Metoprolol Tartrate 50 mg 10/20/16 22:00 10/23/16 14:28 Lopressor - PO 50 mg TID [facility] Administration Midazolam HCl 2 mg 10/22/16 11:38 10/23/16 11:00 Versed - IVPUSH 2 mg Q1H PRN Administration AGITATION Mirtazapine 15 mg 10/16/16 10:00 10/23/16 09:33 Remeron - NGT 15 mg DAILY [facility] Administration Ranitidine HCl 150 mg 10/22/16 22:00 10/23/16 09:31 Zantac Oral Solution - NGT 150 mg BID [facility] Administration Scopolamine HBr 1 patch 10/17/16 19:15 10/20/16 23:32 Transderm-Scop - TD 1 patch Q72H [facility] Administration ASSESSMENT/PLAN: 56 yr old F with PMH ALS, chronic hypercapnic resp failure, HTN, HLD, hyperthyroidism, goiter, intubated to ED via EMS due to resp arrest. In ED, pt had cardiac arrest (V tach) for 5 min, was resuscitated and stabilized, admitted to ICU. # Acute on chronic respiratory failure secondary to possible aspiration pneumonia vs. ALS -Trach has been discussed with family- state that pt herself does not want Trach , ongoing discussion -Palliative on board -Continue osmolite feeds # Anxiety -On Versed 2mg IVP PRN # Paroxysmal afib -Cardiazem 30 TID added -Continue rate control with lopressor 50mg TID, Cardiazem 10mg IVP PRN -Digoxin 0.25 mg IVP added for increased rate control -Will continue to monitor #Possible atelectasis -Pt has been spiking fevers at night consecutively -CXR for tomorrow #Hyperthyroidism -Continue Methimazole #Major Depressive Disorder -Continue Remeron # s/p Cardiac arrest in ED possibly secondary to hypoxia -Troponins negative x2 -Echo: regional wall motion abnormalities can't be ruled out. When compared to Echo 10/10/16: no wall motion abnormalities # Diarrhea-resolved # Hypophosphatemia-resolved # Lactic acidosis secondary to cardiac arrest-resolved # Hypokalemia-resolved # Hypernatremia-resolved #Palliative care F/E/N IV NS 75 mls/hr Monitor electrolytes continue tube feeds Visit type - Emergency Visit Emergency Visit: No - New Patient This patient is new to me today: No - Critical Care Critical Care patient: Yes Total Critical Care Time (in minutes): 32 Critical Care Statement: The care of this patient involved high complexity decision making to prevent further life threatening deterioration of the patient 's condition and/or to evalute & treat vital organ system(s) failure or risk of failure.
--- NOTE | 2016-10-23 18:06 | PN ---
Teaching Attending Note Name of Resident: Manjula Delvalle ATTENDING PHYSICIAN STATEMENT I saw and evaluated the patient. I reviewed the resident's note and discussed the case with the resident. I agree with the resident's findings and plan as documented. SUBJECTIVE: Patient is awake on vent. OBJECTIVE: Vital Signs Period Temp Pulse Resp BP Sys/Hatch Pulse Ox Last 24 Hr 99.8 F-100.3 F 88-164 14-24 82-140/61-91 96-98 HEART: Irregular, tachycardic LUNGS: Clear ABDOMEN: Soft, non-distended, normal BS EXTREMITIES: No edema ASSESSMENT AND PLAN: This is a 56-year-old woman with a history of ALS, chronic hypercapnic respiratory failure, HTN, hyperthyroidism, atrial fib, hyperlipidemia who was brought in to the ER after being intubated by EMS for acute respiratory distress and subsequently had cardiac arrest in the ER. 1. s/p cardiac arrest, likely secondary to hypoxia vs electrolyte abnormality 2. Acute on chronic hypoxic and hypercapnic respiratory failure - Continue SoluMedrol, DuoNeb - Unable to wean vent - Palliative care following - Ongoing discussion with family regarding tracheostomy and PEG 3. Lactic acidemia - Resolved 4. Hypokalemia - Improved 5. Hypophosphatemia - Improved 6. Hyperthyroidism - Continue Tapazole 7. HTN - Continue Cardizem, Lopressor 8. Atrial fibrillation/flutter with RVR - TSH is OK - Lopressor being adjusted - Cardizem IV drip started - Cardizem, Digoxin as needed - Continue Eliquis 9. Hyperlipidemia 10. Depression - Continue Remeron
[2016-10-23] MEDS: SCOPOLAMINE HYDROBROMIDE 1 PATCH PATCH.TD72 TD SCH (18:18)
[2016-10-23] MEDS: methylPREDNISolone NA SUCC 40 MG/1 ML VIAL IVPB SCH ×2 (18:20→21:36)
[2016-10-23] MEDS ORDERED: DIGOXIN 0.5 MG/2 ML AMPUL IVPUSH ONE (20:30)
[2016-10-23] MEDS ORDERED: AMIODARONE HCL INJECTION 450 MG in DEXTROSE 5%-WATER - 241 ML IVPB SCH ×2 (20:30→22:57)
[2016-10-23] MEDS: CHLORHEXIDINE GLUCONATE 4% CLEANSER FOR DECOLONIZATION TP SCH (23:09)
[2016-10-23] MEDS: INSULIN SLIDING SCALE (NOVOLOG) 1 VIAL SQ SCH (23:09)
[2016-10-23] MEDS: ALBUTEROL SO4 2.5/IPRATROPIUM 0.5 INH SOL 3 ML VIAL.NEB. NEB SCH (23:55)
[2016-10-24] MEDS: ALBUTEROL SO4 2.5/IPRATROPIUM 0.5 INH SOL 3 ML VIAL.NEB. NEB SCH ×4 (00:34→17:00)
[2016-10-24] MEDS: METOPROLOL TARTRATE 50 MG TABLET (FP) PO SCH ×3 (06:25→21:25)
[2016-10-24] MEDS: INSULIN SLIDING SCALE (NOVOLOG) 1 VIAL SQ SCH ×4 (06:25→21:37)
[2016-10-24 06:36] LABS: BASOPHIL 0.2 % (0-2.0); MCH 29.9 pg (25.7-33.7); MCHC 32.6 g/dl (32.0-36.0); MEAN CELL VOLUME 91.9 fl (80-96); MEAN PLT VOLUME 10.6 fl (7.5-11.1); NEUTROPHILS 94.4 % (42.8-82.8); PLATELET COUNT 286 K/MM3 (134-434); RDW 14.4 % (11.6-15.6); WHITE BLOOD COUNT 12.4 K/mm3 (4.0-10.0)
[2016-10-24 06:56] LABS: MAGNESIUM 2.4 mg/dL (1.8-2.4); PHOSPHOROUS 2.4 mg/dL (2.5-4.9)
--- NOTE | 2016-10-24 07:23 | PN ---
Progress Note, Physician Chief Complaint: ID 56 year old female ALS currently ( remains ) intubated - Current Medication List Current Medications: Active Medications Acetaminophen (Tylenol -) 650 mg PO Q4H PRN PRN Reason: FEVER OR PAIN Last Admin: 10/23/16 09:32 Dose: 650 mg Albuterol/Ipratropium (Duoneb -) 1 amp NEB QIDR [facility] Last Admin: 10/24/16 07:05 Dose: 1 amp Apixaban (Eliquis -) 5 mg PO BID [facility] Last Admin: 10/23/16 21:36 Dose: 5 mg Chlorhexidine Gluconate (Hibiclens For Decolonization -) 1 applic TP HS [facility] Last Admin: 10/23/16 23:09 Dose: 1 applic Chlorhexidine Gluconate (Peridex -) 15 ml MM BID [facility] Last Admin: 10/23/16 23:09 Dose: 15 ml Digoxin (Lanoxin Injection -) 0.25 mg IVPUSH ONCE PRN PRN Reason: TACHYCARDIA Last Admin: 10/23/16 09:27 Dose: 0.25 mg Diltiazem HCl (Cardizem Injection -) 10 mg IVPUSH Q4H PRN PRN Reason: TACHYCARDIA Last Admin: 10/23/16 01:00 Dose: 10 mg Diltiazem HCl 125 mg/ Dextrose 125 mls @ 5 mls/hr IVPB TITR [facility]; 5 MG/HR PRN Reason: Protocol Last Titration: 10/23/16 23:00 Dose: 5 mg/hr Insulin Aspart (Novolog Vial Sliding Scale -) 1 vial SQ ACHS [facility] PRN Reason: Protocol Last Admin: 10/24/16 06:25 Dose: 2 units Lidocaine HCl (Xylocaine 2% Jelly) 1 applic TP Q4H PRN PRN Reason: PAIN Last Admin: 10/16/16 20:51 Dose: 1 applic Lorazepam (Ativan Injection -) 1 mg IVPUSH Q4H PRN PRN Reason: ANXIETY Last Admin: 10/23/16 20:42 Dose: 1 mg Methimazole (Tapazole -) 10 mg NGT DAILY [facility] Last Admin: 10/23/16 13:11 Dose: 10 mg Methylprednisolone Sodium Succinate (Solu-Medrol -) 40 mg IVPB BID [facility] Last Admin: 10/23/16 21:36 Dose: 40 mg Metoprolol Tartrate (Lopressor -) 50 mg PO TID [facility] Last Admin: 10/24/16 06:25 Dose: 50 mg Midazolam HCl (Versed -) 2 mg IVPUSH Q1H PRN PRN Reason: AGITATION Last Admin: 10/23/16 19:30 Dose: 2 mg Mirtazapine (Remeron -) 15 mg NGT DAILY [facility] Last Admin: 10/23/16 09:33 Dose: 15 mg Ranitidine HCl (Zantac Oral Solution -) 150 mg NGT BID [facility] Last Admin: 10/23/16 21:36 Dose: 150 mg Scopolamine HBr (Transderm-Scop -) 1 patch TD Q72H [facility] Last Admin: 10/23/16 18:18 Dose: 1 patch - Objective Vital Signs: Vital Signs Temperature 99.2 F 10/24/16 06:00 Pulse Rate 93 H 10/24/16 06:00 Respiratory Rate 16 10/24/16 07:04 Blood Pressure 115/68 10/24/16 06:00 O2 Sat by Pulse Oximetry (%) 98 10/23/16 22:00 Constitutional: Yes: Well Nourished, No Distress Eyes: Yes: WNL, Conjunctiva Clear Cardiovascular: Yes: S1, S2 Respiratory: Yes: WNL, Regular, CTA Bilaterally, Rhonchi Gastrointestinal: Yes: WNL, Normal Bowel Sounds, Soft. No: Tenderness Edema: No Labs: CBC, BMP 10/23/16 05:20 INR, PTT INR 1.58 (0.82-1.09) H 10/19/16 05:15 Problem List - Problems (1) ALS (amyotrophic lateral sclerosis) Code(s): G12.21 - AMYOTROPHIC LATERAL SCLEROSIS (2) Cardiac arrest Code(s): I46.9 - CARDIAC ARREST, CAUSE UNSPECIFIED (3) Respiratory failure requiring intubation Code(s): J96.90 - RESPIRATORY FAILURE, UNSP, UNSP W HYPOXIA OR HYPERCAPNIA (4) Fever Code(s): R50.9 - FEVER, UNSPECIFIED Assessment/Plan Microbiology 10/16/16 22:00 Urine For Antigen Detection Legionella Antigen - Final 10/16/16 22:00 Urine For Antigen Detection Streptococcus pneumoniae Antigen (M - Final 10/16/16 22:00 Sputum - Endotrachea Suction/Ventilator Gram Stain - Final 10/16/16 22:00 Sputum - Endotrachea Suction/Ventilator Sputum Culture - Final Yeast Like Organism 10/16/16 01:35 Nasopharyngeal Swab Respiratory Virus (PCR) - Final 10/15/16 22:23 Urine - Urine Carrillo Urine Culture - Final NO GROWTH OBTAINED 10/15/16 22:23 Blood - Peripheral Venous Blood Culture - Final NO GROWTH AFTER 5 DAYS INCUBATION 10/15/16 22:23 Blood - Peripheral Venous Blood Culture - Final NO GROWTH AFTER 5 DAYS INCUBATION Laboratory Tests 10/19/16 10/19/16 10/21/16 05:15 07:10 05:20 WBC Hgb Hct Plt Count INR 1.58 H ABG pH 7.47 H ABG pCO2 at Pt Temp 41.2 ABG pO2 at Pt Temp 138.0 H D Oxygen Flow Rate 40 BUN 17 Creatinine 0.5 L Creat Clearance w eGFR > 60 Total Bilirubin 0.4 D AST 11 L D ALT 19 D Alkaline Phosphatase 101 10/22/16 10/23/16 10/23/16 05:15 05:20 05:20 WBC 11.2 H 10.5 H Hgb 10.5 L 9.6 L Hct 32.1 L 28.3 L Plt Count 218 237 INR ABG pH ABG pCO2 at Pt Temp ABG pO2 at Pt Temp Oxygen Flow Rate BUN 17 Creatinine 0.4 L D Creat Clearance w eGFR Total Bilirubin AST ALT Alkaline Phosphatase Assessment Low grade fever secondary atalectasis with opacification hemithorax Respiratory failure ALS Opacification of hemithorax Plan Bronchoscopy ? mucus "plug" No antibiotics Margot LOVELACE
--- NOTE | 2016-10-24 08:28 | PN ---
Progress Note, Physician Chief Complaint: in sinus remains intubated History of Present Illness: required IV amio bolus and 2 pushes of dig for rate control for THOMAS yesterday - Current Medication List Current Medications: Active Medications Acetaminophen (Tylenol -) 650 mg PO Q4H PRN PRN Reason: FEVER OR PAIN Last Admin: 10/23/16 09:32 Dose: 650 mg Albuterol/Ipratropium (Duoneb -) 1 amp NEB QIDR [facility] Last Admin: 10/24/16 07:05 Dose: 1 amp Apixaban (Eliquis -) 5 mg PO BID [facility] Last Admin: 10/23/16 21:36 Dose: 5 mg Chlorhexidine Gluconate (Hibiclens For Decolonization -) 1 applic TP HS [facility] Last Admin: 10/23/16 23:09 Dose: 1 applic Chlorhexidine Gluconate (Peridex -) 15 ml MM BID [facility] Last Admin: 10/23/16 23:09 Dose: 15 ml Digoxin (Lanoxin Injection -) 0.25 mg IVPUSH ONCE PRN PRN Reason: TACHYCARDIA Last Admin: 10/23/16 09:27 Dose: 0.25 mg Diltiazem HCl (Cardizem Injection -) 10 mg IVPUSH Q4H PRN PRN Reason: TACHYCARDIA Last Admin: 10/23/16 01:00 Dose: 10 mg Diltiazem HCl 125 mg/ Dextrose 125 mls @ 5 mls/hr IVPB TITR [facility]; 5 MG/HR PRN Reason: Protocol Last Titration: 10/23/16 23:00 Dose: 5 mg/hr Insulin Aspart (Novolog Vial Sliding Scale -) 1 vial SQ ACHS [facility] PRN Reason: Protocol Last Admin: 10/24/16 06:25 Dose: 2 units Lidocaine HCl (Xylocaine 2% Jelly) 1 applic TP Q4H PRN PRN Reason: PAIN Last Admin: 10/16/16 20:51 Dose: 1 applic Methimazole (Tapazole -) 10 mg NGT DAILY [facility] Last Admin: 10/23/16 13:11 Dose: 10 mg Methylprednisolone Sodium Succinate (Solu-Medrol -) 40 mg IVPB BID [facility] Last Admin: 10/23/16 21:36 Dose: 40 mg Metoprolol Tartrate (Lopressor -) 50 mg PO TID [facility] Last Admin: 10/24/16 06:25 Dose: 50 mg Midazolam HCl (Versed -) 2 mg IVPUSH Q1H PRN PRN Reason: AGITATION Last Admin: 10/23/16 19:30 Dose: 2 mg Mirtazapine (Remeron -) 15 mg NGT DAILY [facility] Last Admin: 10/23/16 09:33 Dose: 15 mg Ranitidine HCl (Zantac Oral Solution -) 150 mg NGT BID [facility] Last Admin: 10/23/16 21:36 Dose: 150 mg Scopolamine HBr (Transderm-Scop -) 1 patch TD Q72H [facility] Last Admin: 10/23/16 18:18 Dose: 1 patch - Objective Vital Signs: Vital Signs Temperature 99.2 F 10/24/16 06:00 Pulse Rate 93 H 10/24/16 06:00 Respiratory Rate 12 10/24/16 07:56 Blood Pressure 117/70 10/24/16 07:56 O2 Sat by Pulse Oximetry (%) 98 10/23/16 22:00 Constitutional: Yes: Other (sleeping) Cardiovascular: Yes: Regular Rate and Rhythm Respiratory: Yes: Other (= breath sounds b/l) Gastrointestinal: Yes: Soft Edema: No Labs: CBC, BMP 10/24/16 05:30 10/23/16 05:20 INR, PTT INR 1.58 (0.82-1.09) H 10/19/16 05:15 Laboratory Tests 10/19/16 10/24/16 05:15 05:30 WBC 12.4 H Hgb 11.0 D Plt Count 286 D INR 1.58 H - ....Imaging EKG: Image Reviewed Problem List - Problems (1) Cardiac arrest Code(s): I46.9 - CARDIAC ARREST, CAUSE UNSPECIFIED (2) Pneumonia Code(s): J18.9 - PNEUMONIA, UNSPECIFIED ORGANISM Qualifiers: Pneumonia type: due to unspecified organism Laterality: left Lung location: upper lobe of lung Qualified Code(s): J18.1 - Lobar pneumonia, unspecified organism (3) Respiratory failure requiring intubation Code(s): J96.90 - RESPIRATORY FAILURE, UNSP, UNSP W HYPOXIA OR HYPERCAPNIA (4) ALS (amyotrophic lateral sclerosis) Code(s): G12.21 - AMYOTROPHIC LATERAL SCLEROSIS Assessment/Plan IMP: Advanced ALS Acute respiratory failure, probably multifactorial due to PNA and advanced ALS PAF S/P Cardiopulmonary arrest in setting of acute respiratory failure, with recent echo normal LVEF and negative TnIs this admission REC: 1. PAFib with episodes of RVR; periods of Aflutter: now in sinus -wean cardizem gtts -Cont Eliquis - 2. Acute respiratory failure: -multifactorial, likely due to advanced ALS -off ABx and monitoring for fever -Vent support, consideration being made for trach 3.Cardiopulmonary arrest:-Not a primary cardiac arrest -in setting of acute respiratory failure -LV function normal on echo -cardiac enzymes wnl -no additional cardiac work up needed at this point
--- NOTE | 2016-10-24 09:23 | PN ---
Physical Exam: SUBJECTIVE: 56 year old female w/ pmh ALS, chronic respiratory failure, afib, hyperthyroidism on vent s/p cardiac arrest in the ICU for worsening respiratory function. Patient is difficult to communicate with due to ALS status, but is able to answer questions and respond to commands. Family is frequently visiting her and they are able to answer questions. OBJECTIVE: Vital Signs Period Temp Pulse Resp BP Sys/Hatch Pulse Ox Last 24 Hr 98.6 F-100.3 F 77-165 12-24 99-164/63-115 96-98 GENERAL: The patient is awake, alert, in no acute distress HEAD: Normal with no signs of trauma. EYES: PERRL, extraocular movements intact, sclera anicteric, conjunctiva clear. No ptosis. ENT: Ears normal, nares patent, oropharynx clear without exudates, moist mucous membranes. NECK: Trachea midline, full range of motion, supple. LUNGS: Breath sounds equal, patient breathing on vent HEART: regular rate and rhythm S1, S2 without murmur, rub or gallop. ABDOMEN: Soft, nontender, nondistended, normoactive bowel sounds, no guarding, no rebound, no hepatosplenomegaly, no masses. EXTREMITIES: 2+ pulses, warm, well-perfused, no edema. NEUROLOGICAL: Cranial nerves not able to be assessed, pt has b/l weakness in both upper and lower extremities, 3/5 muscle strength in b/l upper extremities, can grasp with b/l hands, can move toes SKIN: Warm, dry, normal turgor, no rashes or lesions noted CBC, BMP 10/24/16 05:30 10/23/16 05:20 Active Medications Generic Name Dose Route Start Last Admin Trade Name Freq PRN Reason Stop Dose Admin Acetaminophen 650 mg 10/18/16 20:41 10/23/16 09:32 Tylenol - PO 650 mg Q4H PRN Administration FEVER OR PAIN Albuterol/Ipratropium 1 amp 10/23/16 18:00 10/24/16 07:05 Duoneb - NEB 1 amp QIDR [facility] Administration Apixaban 5 mg 10/17/16 22:00 10/23/16 21:36 Eliquis - PO 5 mg BID [facility] Administration Chlorhexidine Gluconate 1 applic 10/16/16 22:00 10/23/16 23:09 Hibiclens For Decolonization - TP 1 applic HS [facility] Administration Chlorhexidine Gluconate 15 ml 10/16/16 12:15 10/23/16 23:09 Peridex - MM 15 ml BID [facility] Administration Digoxin 0.25 mg 10/23/16 08:57 10/23/16 09:27 Lanoxin Injection - IVPUSH 0.25 mg ONCE PRN Administration TACHYCARDIA Diltiazem HCl 10 mg 10/20/16 18:14 10/23/16 01:00 Cardizem Injection - IVPUSH 10 mg Q4H PRN Administration TACHYCARDIA Diltiazem HCl 125 mg/ Dextrose 125 mls @ 5 mls/hr 10/23/16 14:30 10/23/16 23:00 IVPB 5 mg/hr TITR [facility] Titration Protocol 5 MG/HR Insulin Aspart 1 vial 10/24/16 07:00 10/24/16 06:25 Novolog Vial Sliding Scale - SQ 2 units ACHS [facility] Administration Protocol Lidocaine HCl 1 applic 10/16/16 20:38 10/16/16 20:51 Xylocaine 2% Jelly TP 1 applic Q4H PRN Administration PAIN Methimazole 10 mg 10/16/16 10:00 10/23/16 13:11 Tapazole - NGT 10 mg DAILY [facility] Administration Methylprednisolone Sodium Succinate 40 mg 10/23/16 16:30 10/23/16 21:36 Solu-Medrol - IVPB 40 mg BID [facility] Administration Metoprolol Tartrate 50 mg 10/20/16 22:00 10/24/16 06:25 Lopressor - PO 50 mg TID [facility] Administration Midazolam HCl 2 mg 10/22/16 11:38 10/23/16 19:30 Versed - IVPUSH 2 mg Q1H PRN Administration AGITATION Mirtazapine 15 mg 10/16/16 10:00 10/23/16 09:33 Remeron - NGT 15 mg DAILY [facility] Administration Ranitidine HCl 150 mg 10/22/16 22:00 10/23/16 21:36 Zantac Oral Solution - NGT 150 mg BID [facility] Administration Scopolamine HBr 1 patch 10/17/16 19:15 10/23/16 18:18 Transderm-Scop - TD 1 patch Q72H [facility] Administration Imaging: US duplex LE (10/16): no evidence of DVT Echo: (7/27): mild mitral regurgitation, mild pulmonic valve regurgitation, pleural effusion present, CXR (10/23): Total opacification of L hemithorax with L mediastinal shift CXR (10/24): No change from CXR on 10/23 - total opacification of L hemithorax with L mediastinal shift ASSESSMENT/PLAN: 56 year old female with nonimproving chronic respiratory failure on vent with worsening ALS and paroxysmal atrial fibrillation with rapid ventricular response. Neuro: patient with worsening ALS -frequent neurochecks -monitor respiratory function -provide versed 2mg Q1 PRN for agitation Cardiovascular: patient has hx of hypertension and afib w/ rvr - received dose of amiodarone and digoxin last night to control rate -continue metoprolol 50mg PO TID -continue cardizem 10mg IV push PRN afib -home planning consultant salesperson started on cardizem 30 TID -pt continues to have Afib in the 160s-170s -start cardizem drip, f/u with home planning consultant salesperson -consider digoxin push if rate uncontrolled on cardizem -continue eloquis 5mg for afib -pt INR 1.7 - give preoperative FFP Pulmonary: patient with unimproving respiratory function, breathing on vent - scheduled for surgical trach insertion between 2:30-3pm -ordered mucamist for the surgery -patient agreed and consented for trach, family was present for discussion of surgical airway insertion -pt counseled on importance of trach and feeding tube for nutrition -CXR showed total opacification of L hemithorax w/ L mediastinal shift likely due to atelectasis/mucus plugging -ordered chest PT to clear mucus -attempt to remove mucus during surgical tracheostomy -AM CXR Endocrine: pt with hx of hyperthyroidism -continue home methimazole Proph: -continue famotidine Dispo: -Continue monitoring in the ICU until surgery -f/u in ICU post-surgery Problem List - Problems (1) Respiratory failure requiring intubation Code(s): J96.90 - RESPIRATORY FAILURE, UNSP, UNSP W HYPOXIA OR HYPERCAPNIA (2) ALS (amyotrophic lateral sclerosis) Code(s): G12.21 - AMYOTROPHIC LATERAL SCLEROSIS Visit type - Emergency Visit Emergency Visit: No - New Patient This patient is new to me today: No - Critical Care Critical Care patient: Yes Total Critical Care Time (in minutes): 40 Critical Care Statement: The care of this patient involved high complexity decision making to prevent further life threatening deterioration of the patient 's condition and/or to evalute & treat vital organ system(s) failure or risk of failure.
[2016-10-24] MEDS: methylPREDNISolone NA SUCC 40 MG/1 ML VIAL IVPB SCH ×2 (09:45→21:31)
[2016-10-24] MEDS: MIRTAZAPINE 15 MG TABLET (FP) NGT SCH (10:00)
[2016-10-24] MEDS: RANITIDINE HCL 150 MG/10 ML UNIT-DOSE CUP NGT SCH ×2 (10:00→21:26)
[2016-10-24] MEDS: METHIMAZOLE 10 MG TABLET (FP) NGT SCH (10:00)
[2016-10-24] MEDS: APIXABAN 2.5 MG TABLET PO SCH (10:00)
[2016-10-24] MEDS ORDERED: ACETYLCYSTEINE 20% 200MG/ML 30 ML VIAL *FOR ORAL / INH USE ONLY IH ONE (10:00)
[2016-10-24 10:12] LABS: ANION GAP 7 (8-16); CALCIUM 8.4 mg/dL (8.5-10.1); CO2 30 mmol/L (21-32); CREATININE 0.4 mg/dL (0.55-1.02); GLUCOSE,RANDOM 126 mg/dL (74-106)
[2016-10-24 10:15] LABS: INR 1.75 (0.82-1.09); PROTHROMBIN TIME (PATIENT) 19.5 SEC (9.98-11.88)
[2016-10-24] MEDS ORDERED: ACETYLCYSTEINE 20% 200MG/ML 4 ML VIAL *FOR ORAL / INH USE ONLY IH ONE ×2 (11:00→15:00)
[2016-10-24] MEDS ORDERED: HEMOQUE TEST 1 EACH EACH ONE (12:10)
[2016-10-24] MEDS: CHLORHEXIDINE GLUCONATE 0.12% 15ML CUP MM SCH ×2 (13:57→21:31)
[2016-10-24] MEDS: MIDAZOLAM HCL 2 MG/2 ML SINGLE DOSE VIAL IVPUSH PRN (14:43)
[2016-10-24] MEDS ORDERED: ROCURONIUM BROMIDE 50 MG/5 ML VIAL IV ONE (14:45)
--- NOTE | 2016-10-24 14:51 | PN ---
Teaching Attending Note Name of Resident: Junito Prieto ATTENDING PHYSICIAN STATEMENT I saw and evaluated the patient. I reviewed the resident's note and discussed the case with the resident. I agree with the resident's findings and plan as documented. SUBJECTIVE: Pt seen and examined in the ICU. Remains intubated, awake. Scheduled for tracheostomy today. No fevers recorded. CXR still with opacification of left hemithorax. Remains on cardizem gtt. OBJECTIVE: Last Vital Signs Temp Pulse Resp BP Pulse Ox 98.6 F 90 12 134/90 99 10/24/16 14:00 10/24/16 14:00 10/24/16 14:29 10/24/16 14:00 10/24/16 10:43 Intake & Output 10/21/16 10/22/16 10/23/16 10/24/16 23:59 23:59 23:59 23:59 Intake Total 2680 2740 3150 40 Output Total 1900 2500 2500 Balance 780 240 650 40 Weight 170 lb 164 lb 8 oz 164 lb 3.91 oz 166 lb 3.657 oz Gen: intubated, awake Heart: irregular Lung: decreased breath sounds left Abd: soft, nontender Ext: + edema CBC, BMP 10/24/16 05:30 10/24/16 09:30 Active Medications Acetaminophen (Tylenol -) 650 mg PO Q4H PRN PRN Reason: FEVER OR PAIN Last Admin: 10/23/16 09:32 Dose: 650 mg Acetylcysteine (Mucomyst 20 Oral / Inh Use Only*) 2,000 mg IH ONCE ONE Stop: 10/24/16 15:01 Albuterol/Ipratropium (Duoneb -) 1 amp NEB QIDR [facility] Last Admin: 10/24/16 12:00 Dose: 1 amp Apixaban (Eliquis -) 5 mg PO BID [facility] Last Admin: 10/24/16 10:00 Dose: Not Given Chlorhexidine Gluconate (Hibiclens For Decolonization -) 1 applic TP HS [facility] Last Admin: 10/23/16 23:09 Dose: 1 applic Chlorhexidine Gluconate (Peridex -) 15 ml MM BID [facility] Last Admin: 10/24/16 13:57 Dose: 15 ml Digoxin (Lanoxin Injection -) 0.25 mg IVPUSH ONCE PRN PRN Reason: TACHYCARDIA Last Admin: 10/23/16 09:27 Dose: 0.25 mg Diltiazem HCl (Cardizem Injection -) 10 mg IVPUSH Q4H PRN PRN Reason: TACHYCARDIA Last Admin: 10/23/16 01:00 Dose: 10 mg Diltiazem HCl 125 mg/ Dextrose 125 mls @ 5 mls/hr IVPB TITR [facility]; 5 MG/HR PRN Reason: Protocol Last Titration: 10/23/16 23:00 Dose: 5 mg/hr Insulin Aspart (Novolog Vial Sliding Scale -) 1 vial SQ ACHS [facility] PRN Reason: Protocol Last Admin: 10/24/16 11:00 Dose: Not Given Lidocaine HCl (Xylocaine 2% Jelly) 1 applic TP Q4H PRN PRN Reason: PAIN Last Admin: 10/16/16 20:51 Dose: 1 applic Methimazole (Tapazole -) 10 mg NGT DAILY [facility] Last Admin: 10/24/16 10:00 Dose: Not Given Methylprednisolone Sodium Succinate (Solu-Medrol -) 40 mg IVPB BID [facility] Last Admin: 10/24/16 09:45 Dose: 40 mg Metoprolol Tartrate (Lopressor -) 50 mg PO TID [facility] Last Admin: 10/24/16 14:44 Dose: Not Given Midazolam HCl (Versed -) 2 mg IVPUSH Q1H PRN PRN Reason: AGITATION Last Admin: 10/24/16 14:43 Dose: 2 mg Mirtazapine (Remeron -) 15 mg NGT DAILY [facility] Last Admin: 10/24/16 10:00 Dose: Not Given Ranitidine HCl (Zantac Oral Solution -) 150 mg NGT BID [facility] Last Admin: 10/24/16 10:00 Dose: Not Given Scopolamine HBr (Transderm-Scop -) 1 patch TD Q72H [facility] Last Admin: 10/23/16 18:18 Dose: 1 patch ASSESSMENT AND PLAN: Acute on Chronic Hypoxic and Hypercapneic Respiratory Failure s/p Cardiac Arrest likely from Respiratory Failure Pneumonia Sepsis Lactic Acidosis resolved Advanced ALS Paroxysmal Atrial Fibrillation with RVR HTN Hyperthyroidism Left Atelectasis likely from mucous plugging - completed antibiotics - rate control with metoprolol, digoxin, cardizem gtt - for bronchoscopy/tracheostomy today - resume anticoagulation after tracheostomy - replete lytes - enteral feeds - spontaneous breathing trials as tolerated - DVT/GI prophylaxis critical care time spent in reviewing chart, evaluating patient and formulating plan 36 min
[2016-10-24] MEDS ORDERED: MIDAZOLAM HCL 5 MG/1 ML Single Dose Vial ONE (15:11)
[2016-10-24] MEDS ORDERED: PROPOFOL 20 ML ONE (15:11)
[2016-10-24] MEDS ORDERED: LIDOCAINE HCL 1%, 10 MG/ML (20ML VIAL) IJ ONE (15:20)
[2016-10-24] MEDS: DILTIAZEM INJECTION 125 MG in DEXTROSE 5%-WATER - 100 ML IVPB SCH (15:55)
[2016-10-24] MEDS ORDERED: PROPOFOL 200 MG/20 ML VIAL IVPUSH ONE (16:04)
[2016-10-24] MEDS ORDERED: MIDAZOLAM HCL 5 MG/1 ML Single Dose Vial IVPUSH ONE (16:04)
--- NOTE | 2016-10-24 16:38 | PROC ---
Procedure Note Procedure: BRONCHOSCOPY NOTE After discussing the risks and benefits of the procedure, informed consent was obtained from the patient. Pt was given sedation and paralyzed. [employer] video bronchoscope was passed via the ETT and the airways were examined down to the subsegmental level. Both main bronchi were obstructed by thick mucous plugs. Areas were lavaged and washed until cleared. LLL bronchus was instilled with acetylcysteine. No underlying endobronchial lesions noted. Trachea was then directly visualized while the surgeon placed the percutaneous tracheostomy. Bronchoscope was then passed through the new tracheostomy and confirmed placement. No active bleeding noted. Bronchoscope then withdrawn and procedure terminated. Gumaro Zendejas MD
--- NOTE | 2016-10-24 17:05 | PN ---
Teaching Attending Note Name of Resident: Manjula Delvalle ATTENDING PHYSICIAN STATEMENT I saw and evaluated the patient. I reviewed the resident's note and discussed the case with the resident. I agree with the resident's findings and plan as documented. SUBJECTIVE: Patient is awake on vent. OBJECTIVE: Vital Signs Period Temp Pulse Resp BP Sys/Hatch Pulse Ox Last 24 Hr 98.2 F-99.5 F 77-165 12-24 85-166/54-113 96-99 HEART: Regular rhythm, tachycardic LUNGS: Clear ABDOMEN: Soft, non-distended, normal BS EXTREMITIES: No edema ASSESSMENT AND PLAN: This is a 56-year-old woman with a history of ALS, chronic hypercapnic respiratory failure, HTN, hyperthyroidism, atrial fib, hyperlipidemia who was brought in to the ER after being intubated by EMS for acute respiratory distress and subsequently had cardiac arrest in the ER. 1. s/p cardiac arrest, likely secondary to hypoxia vs electrolyte abnormality 2. Acute on chronic hypoxic and hypercapnic respiratory failure - Continue SoluMedrol, DuoNeb - Unable to wean vent - tracheostomy planned for tomorrow - Palliative care following 3. Lactic acidemia - Resolved 4. Hypokalemia - Improved 5. Hypophosphatemia - Improved 6. Hyperthyroidism - Continue Tapazole 7. HTN - Continue Cardizem, Lopressor 8. Atrial fibrillation/flutter with RVR - TSH is OK - Current rhythm is sinus tachycardia - Continue Lopressor - Wean Cardizem IV drip as tolerated - Continue Cardizem, Digoxin as needed - Continue Eliquis 9. Hyperlipidemia 10. Depression - Continue Remeron
[2016-10-24] MEDS ORDERED: dilTIAZem HCL 125 MG/25 ML - 5 ML VIAL ONE (17:56)
[2016-10-24] MEDS: SODIUM CHLORIDE 1,000 ML IV SCH (17:57)
--- NOTE | 2016-10-24 18:49 | PN ---
Physical Exam: SUBJECTIVE: Patient seen and examined at bedside. Pt in normal sinus rhythm. For trach procedure today. OBJECTIVE: Vital Signs Period Temp Pulse Resp BP Sys/Hatch Pulse Ox Last 24 Hr 98.2 F-99.5 F 77-165 12-22 85-166/54-113 96-99 GENERAL: The patient is awake, alert, in no acute distress. HEAD: Normal with no signs of trauma. EYES: PERRL, extraocular movements intact, sclera anicteric, conjunctiva clear. NECK: Trachea midline, supple. LUNGS: Breath sounds equal, clear to auscultation bilaterally, no wheezes, no crackles, no accessory muscle use. HEART: Regular rate and rhythm, S1, S2 without murmur, rub or gallop. ABDOMEN: Soft, nontender, nondistended, normoactive bowel sounds, no guarding, no rebound, EXTREMITIES: 2+ posterior tibial pulses, warm, well-perfused, no edema. NEUROLOGICAL: difficult to assess, pt less responsive as she was yesterday Laboratory Results - last 24 hr 10/23/16 10/24/16 10/24/16 22:16 05:30 05:30 WBC 12.4 H RBC 3.68 Hgb 11.0 D Hct 33.8 D MCV 91.9 MCH 29.9 MCHC 32.6 RDW 14.4 Plt Count 286 D MPV 10.6 Neutrophils % 94.4 H D Lymphocytes % 4.1 L D Monocytes % 1.3 L D Eosinophils % 0.0 D Basophils % 0.2 INR Sodium Potassium Chloride Carbon Dioxide Anion Gap BUN Creatinine POC Glucometer [phone] Random Glucose Calcium Phosphorus 2.4 L Magnesium 2.4 Blood Type Antibody Screen 10/24/16 10/24/16 10/24/16 05:30 09:30 09:30 WBC RBC Hgb Hct MCV MCH MCHC RDW Plt Count MPV Neutrophils % Lymphocytes % Monocytes % Eosinophils % Basophils % INR 1.75 H Sodium 140 Potassium 4.8 D Chloride 103 Carbon Dioxide 30 Anion Gap 7 L BUN 24 H D Creatinine 0.4 L POC Glucometer [phone] Random Glucose 126 H Calcium 8.4 L Phosphorus Magnesium Blood Type Antibody Screen 10/24/16 10/24/16 10/24/16 12:12 12:45 17:23 WBC RBC Hgb Hct MCV MCH MCHC RDW Plt Count MPV Neutrophils % Lymphocytes % Monocytes % Eosinophils % Basophils % INR Sodium Potassium Chloride Carbon Dioxide Anion Gap BUN Creatinine POC Glucometer [phone] Random Glucose Calcium Phosphorus Magnesium Blood Type O POSITIVE Antibody Screen Negative Active Medications Generic Name Dose Route Start Last Admin Trade Name Freq PRN Reason Stop Dose Admin Acetaminophen 650 mg 10/18/16 20:41 10/23/16 09:32 Tylenol - PO 650 mg Q4H PRN Administration FEVER OR PAIN Albuterol/Ipratropium 1 amp 10/23/16 18:00 10/24/16 17:00 Duoneb - NEB 1 amp QIDR [facility] Administration Apixaban 5 mg 10/17/16 22:00 10/24/16 10:00 Eliquis - PO Not Given BID [facility] Chlorhexidine Gluconate 1 applic 10/16/16 22:00 10/23/16 23:09 Hibiclens For Decolonization - TP 1 applic HS [facility] Administration Chlorhexidine Gluconate 15 ml 10/16/16 12:15 10/24/16 13:57 Peridex - MM 15 ml BID [facility] Administration Digoxin 0.25 mg 10/23/16 08:57 10/23/16 09:27 Lanoxin Injection - IVPUSH 0.25 mg ONCE PRN Administration TACHYCARDIA Diltiazem HCl 10 mg 10/20/16 18:14 10/23/16 01:00 Cardizem Injection - IVPUSH 10 mg Q4H PRN Administration TACHYCARDIA Diltiazem HCl 125 mg/ Dextrose 125 mls @ 5 mls/hr 10/23/16 14:30 10/24/16 15:55 IVPB 5 mls/hr TITR [facility] Administration Protocol 5 MG/HR Sodium Chloride 1,000 mls @ 42 mls/hr 10/24/16 17:30 10/24/16 17:57 Normal Saline - IV 42 mls/hr ASDIR [facility] Administration Insulin Aspart 1 vial 10/24/16 07:00 10/24/16 18:01 Novolog Vial Sliding Scale - SQ Not Given ACHS [facility] Protocol Lidocaine HCl 1 applic 10/16/16 20:38 10/16/16 20:51 Xylocaine 2% Jelly TP 1 applic Q4H PRN Administration PAIN Methimazole 10 mg 10/16/16 10:00 10/24/16 10:00 Tapazole - NGT Not Given DAILY [facility] Methylprednisolone Sodium Succinate 40 mg 10/23/16 16:30 10/24/16 09:45 Solu-Medrol - IVPB 40 mg BID [facility] Administration Metoprolol Tartrate 50 mg 10/20/16 22:00 10/24/16 14:44 Lopressor - PO Not Given TID [facility] Midazolam HCl 2 mg 10/22/16 11:38 10/24/16 14:43 Versed - IVPUSH 2 mg Q1H PRN Administration AGITATION Mirtazapine 15 mg 10/16/16 10:00 10/24/16 10:00 Remeron - NGT Not Given DAILY [facility] Ranitidine HCl 150 mg 10/22/16 22:00 10/24/16 10:00 Zantac Oral Solution - NGT Not Given BID [facility] Scopolamine HBr 1 patch 10/17/16 19:15 10/23/16 18:18 Transderm-Scop - TD 1 patch Q72H [facility] Administration ASSESSMENT/PLAN: 56 yr old F with PMH ALS, chronic hypercapnic resp failure, HTN, HLD, hyperthyroidism, goiter, intubated to ED via EMS due to resp arrest. In ED, pt had cardiac arrest (V tach) for 5 min, was resuscitated and stabilized, admitted to ICU. # Acute on chronic respiratory failure secondary to possible aspiration pneumonia vs. ALS -Trach completed -For PEG placement, F/u -Palliative on board -Continue osmolite feeds #subtherapeutic INR -INR 1.7 -FFP admin 1 unit # Anxiety -On Versed 2mg IVP PRN # Paroxysmal afib -Pt has been in and out of afib/aflutter -Cardiazem 30 TID added -Continue rate control with lopressor 50mg TID, Cardiazem 10mg IVP PRN -Digoxin 0.25 mg IVP added for increased rate control -Will continue to monitor #Possible atelectasis -Pt has been spiking fevers at night consecutively -CXR: opacification of L hemithorax with L mediastinal shift #Hyperthyroidism -Continue Methimazole #Major Depressive Disorder -Continue Remeron # s/p Cardiac arrest in ED possibly secondary to hypoxia -Troponins negative x2 -Echo: regional wall motion abnormalities can't be ruled out. When compared to Echo 10/10/16: no wall motion abnormalities # Diarrhea-resolved # Hypophosphatemia-resolved # Lactic acidosis secondary to cardiac arrest-resolved # Hypokalemia-resolved # Hypernatremia-resolved #Palliative care F/E/N IV NS 75 mls/hr Monitor electrolytes continue tube feeds Visit type - Emergency Visit Emergency Visit: No - New Patient This patient is new to me today: No - Critical Care Critical Care patient: Yes Total Critical Care Time (in minutes): 32 Critical Care Statement: The care of this patient involved high complexity decision making to prevent further life threatening deterioration of the patient 's condition and/or to evalute & treat vital organ system(s) failure or risk of failure.
[2016-10-24] MEDS: CHLORHEXIDINE GLUCONATE 4% CLEANSER FOR DECOLONIZATION TP SCH (21:31)
[2016-10-25] MEDS: ALBUTEROL SO4 2.5/IPRATROPIUM 0.5 INH SOL 3 ML VIAL.NEB. NEB SCH ×5 (00:01→23:33)
[2016-10-25 06:24] LABS: BASOPHIL 0.2 % (0-2.0); MCH 29.6 pg (25.7-33.7); MCHC 32.5 g/dl (32.0-36.0); MEAN CELL VOLUME 91.2 fl (80-96); MEAN PLT VOLUME 10.6 fl (7.5-11.1); NEUTROPHILS 93.7 % (42.8-82.8); PLATELET COUNT 313 K/MM3 (134-434); RDW 14.8 % (11.6-15.6); WHITE BLOOD COUNT 15.1 K/mm3 (4.0-10.0)
[2016-10-25] MEDS: INSULIN SLIDING SCALE (NOVOLOG) 1 VIAL SQ SCH ×4 (06:27→22:01)
[2016-10-25] MEDS: METOPROLOL TARTRATE 50 MG TABLET (FP) PO SCH ×3 (06:27→21:38)
[2016-10-25 06:49] LABS: ANION GAP 7 (8-16); CALCIUM 8.7 mg/dL (8.5-10.1); CO2 32 mmol/L (21-32); CREATININE 0.4 mg/dL (0.55-1.02); GLUCOSE,RANDOM 143 mg/dL (74-106); MAGNESIUM 2.6 mg/dL (1.8-2.4); PHOSPHOROUS 3.6 mg/dL (2.5-4.9)
--- NOTE | 2016-10-25 07:14 | PN ---
Progress Note, Physician Chief Complaint: ID Stable Cent dependent Remains afebrile Off antibiotics S/P bronchoscopy yesterday - Current Medication List Current Medications: Active Medications Acetaminophen (Tylenol -) 650 mg PO Q4H PRN PRN Reason: FEVER OR PAIN Last Admin: 10/23/16 09:32 Dose: 650 mg Albuterol/Ipratropium (Duoneb -) 1 amp NEB QIDR [facility] Last Admin: 10/25/16 00:01 Dose: 1 amp Apixaban (Eliquis -) 5 mg PO BID [facility] Last Admin: 10/24/16 10:00 Dose: Not Given Chlorhexidine Gluconate (Hibiclens For Decolonization -) 1 applic TP HS [facility] Last Admin: 10/24/16 21:31 Dose: 1 applic Chlorhexidine Gluconate (Peridex -) 15 ml MM BID [facility] Last Admin: 10/24/16 21:31 Dose: 15 ml Digoxin (Lanoxin Injection -) 0.25 mg IVPUSH ONCE PRN PRN Reason: TACHYCARDIA Last Admin: 10/23/16 09:27 Dose: 0.25 mg Diltiazem HCl (Cardizem Injection -) 10 mg IVPUSH Q4H PRN PRN Reason: TACHYCARDIA Last Admin: 10/23/16 01:00 Dose: 10 mg Diltiazem HCl 125 mg/ Dextrose 125 mls @ 5 mls/hr IVPB TITR [facility]; 5 MG/HR PRN Reason: Protocol Last Admin: 10/24/16 15:55 Dose: 5 mls/hr Sodium Chloride (Normal Saline -) 1,000 mls @ 42 mls/hr IV ASDIR [facility] Last Admin: 10/24/16 17:57 Dose: 42 mls/hr Insulin Aspart (Novolog Vial Sliding Scale -) 1 vial SQ ACHS [facility] PRN Reason: Protocol Last Admin: 10/25/16 06:27 Dose: Not Given Lidocaine HCl (Xylocaine 2% Jelly) 1 applic TP Q4H PRN PRN Reason: PAIN Last Admin: 10/16/16 20:51 Dose: 1 applic Methimazole (Tapazole -) 10 mg NGT DAILY [facility] Last Admin: 10/24/16 10:00 Dose: Not Given Methylprednisolone Sodium Succinate (Solu-Medrol -) 40 mg IVPB BID [facility] Last Admin: 10/24/16 21:31 Dose: 40 mg Metoprolol Tartrate (Lopressor -) 50 mg PO TID [facility] Last Admin: 10/25/16 06:27 Dose: Not Given Midazolam HCl (Versed -) 2 mg IVPUSH Q1H PRN PRN Reason: AGITATION Last Admin: 10/24/16 14:43 Dose: 2 mg Mirtazapine (Remeron -) 15 mg NGT DAILY [facility] Last Admin: 10/24/16 10:00 Dose: Not Given Ranitidine HCl (Zantac Oral Solution -) 150 mg NGT BID [facility] Last Admin: 10/24/16 21:26 Dose: Not Given Scopolamine HBr (Transderm-Scop -) 1 patch TD Q72H [facility] Last Admin: 10/23/16 18:18 Dose: 1 patch - Objective Vital Signs: Vital Signs Temperature 98.6 F 10/25/16 06:00 Pulse Rate 101 H 10/25/16 06:00 Respiratory Rate 20 10/25/16 06:00 Blood Pressure 119/96 10/25/16 06:00 O2 Sat by Pulse Oximetry (%) 100 10/24/16 21:00 Neck: Yes: Other (Trach) Cardiovascular: Yes: Regular Rate and Rhythm, S1, S2. No: Murmur Respiratory: Yes: WNL, Regular, CTA Bilaterally Gastrointestinal: Yes: WNL, Normal Bowel Sounds, Soft. No: Tenderness, Tenderness, Rebound Edema: No Labs: INR, PTT INR 1.75 (0.82-1.09) H 10/24/16 09:30 Problem List - Problems (1) ALS (amyotrophic lateral sclerosis) Code(s): G12.21 - AMYOTROPHIC LATERAL SCLEROSIS (2) Cardiac arrest Code(s): I46.9 - CARDIAC ARREST, CAUSE UNSPECIFIED (3) Respiratory failure requiring intubation Code(s): J96.90 - RESPIRATORY FAILURE, UNSP, UNSP W HYPOXIA OR HYPERCAPNIA (4) Fever Code(s): R50.9 - FEVER, UNSPECIFIED Assessment/Plan Microbiology 10/23/16 11:25 Sputum - Endotrachea Suction/Ventilator Gram Stain - Final 10/16/16 22:00 Sputum - Endotrachea Suction/Ventilator Gram Stain - Final 10/16/16 22:00 Sputum - Endotrachea Suction/Ventilator Sputum Culture - Final Yeast Like Organism 10/23/16 11:25 Sputum - Endotrachea Suction/Ventilator Sputum Culture - Preliminary Lactose Fermenting Neg Bacilli 10/23/16 09:57 Blood - Peripheral Venous Blood Culture - Preliminary NO GROWTH OBTAINED AFTER 24 HOURS, INCUBATION TO CONTINUE FOR 4 DAYS. 10/23/16 09:23 Blood - Peripheral Venous Blood Culture - Preliminary NO GROWTH OBTAINED AFTER 24 HOURS, INCUBATION TO CONTINUE FOR 4 DAYS. Laboratory Tests 10/24/16 10/24/16 10/25/16 05:30 09:30 05:05 WBC 12.4 H Pending Hgb 11.0 D Pending Plt Count 286 D Pending BUN 24 H D Creatinine 0.4 L 10/25/16 05:05 WBC Hgb Plt Count BUN Pending Creatinine Pending Assessment Respiratory failure ALS S/P cardiopulmonary arrest Opacification of hemithorax now post bronchoscopy Gram neg alec sputum ? colonizer Afebrile at this time Plan Observe of antibiotic Chest xray post procedure pending ?Resistant organism sputum Margot LOVELACE
[2016-10-25] MEDS ORDERED: PT OWN MED DRAWER 7, Y5N ONE (09:22)
[2016-10-25] MEDS: MIRTAZAPINE 15 MG TABLET (FP) NGT SCH (10:03)
[2016-10-25] MEDS: RANITIDINE HCL 150 MG/10 ML UNIT-DOSE CUP NGT SCH ×2 (10:04→21:38)
[2016-10-25] MEDS: METHIMAZOLE 10 MG TABLET (FP) NGT SCH (10:04)
[2016-10-25] MEDS: methylPREDNISolone NA SUCC 40 MG/1 ML VIAL IVPB SCH ×2 (10:12→21:37)
[2016-10-25] MEDS: CHLORHEXIDINE GLUCONATE 0.12% 15ML CUP MM SCH ×2 (10:12→21:37)
--- NOTE | 2016-10-25 11:33 | PN ---
Progress Note, Physician History of Present Illness: seen and examined today in nad. no overnight events. - Current Medication List Current Medications: Active Medications Acetaminophen (Tylenol -) 650 mg PO Q4H PRN PRN Reason: FEVER OR PAIN Last Admin: 10/23/16 09:32 Dose: 650 mg Albuterol/Ipratropium (Duoneb -) 1 amp NEB QIDR [facility] Last Admin: 10/25/16 07:15 Dose: 1 amp Apixaban (Eliquis -) 5 mg PO BID [facility] Last Admin: 10/24/16 10:00 Dose: Not Given Chlorhexidine Gluconate (Hibiclens For Decolonization -) 1 applic TP HS [facility] Last Admin: 10/24/16 21:31 Dose: 1 applic Chlorhexidine Gluconate (Peridex -) 15 ml MM BID [facility] Last Admin: 10/25/16 10:12 Dose: 15 ml Digoxin (Lanoxin Injection -) 0.25 mg IVPUSH ONCE PRN PRN Reason: TACHYCARDIA Last Admin: 10/23/16 09:27 Dose: 0.25 mg Diltiazem HCl (Cardizem Injection -) 10 mg IVPUSH Q4H PRN PRN Reason: TACHYCARDIA Last Admin: 10/23/16 01:00 Dose: 10 mg Diltiazem HCl 125 mg/ Dextrose 125 mls @ 5 mls/hr IVPB TITR [facility]; 5 MG/HR PRN Reason: Protocol Last Admin: 10/24/16 15:55 Dose: 5 mls/hr Sodium Chloride (Normal Saline -) 1,000 mls @ 42 mls/hr IV ASDIR [facility] Last Admin: 10/24/16 17:57 Dose: 42 mls/hr Insulin Aspart (Novolog Vial Sliding Scale -) 1 vial SQ ACHS [facility] PRN Reason: Protocol Last Admin: 10/25/16 06:27 Dose: Not Given Lidocaine HCl (Xylocaine 2% Jelly) 1 applic TP Q4H PRN PRN Reason: PAIN Last Admin: 10/16/16 20:51 Dose: 1 applic Methimazole (Tapazole -) 10 mg NGT DAILY [facility] Last Admin: 10/25/16 10:04 Dose: Not Given Methylprednisolone Sodium Succinate (Solu-Medrol -) 40 mg IVPB BID [facility] Last Admin: 10/25/16 10:12 Dose: 40 mg Metoprolol Tartrate (Lopressor -) 50 mg PO TID [facility] Last Admin: 10/25/16 06:27 Dose: Not Given Midazolam HCl (Versed -) 2 mg IVPUSH Q1H PRN PRN Reason: AGITATION Last Admin: 10/24/16 14:43 Dose: 2 mg Mirtazapine (Remeron -) 15 mg NGT DAILY [facility] Last Admin: 10/25/16 10:03 Dose: Not Given Ranitidine HCl (Zantac Oral Solution -) 150 mg NGT BID [facility] Last Admin: 10/25/16 10:04 Dose: Not Given Scopolamine HBr (Transderm-Scop -) 1 patch TD Q72H [facility] Last Admin: 10/23/16 18:18 Dose: 1 patch - Objective Vital Signs: Vital Signs Temperature 98.6 F 10/25/16 06:00 Pulse Rate 95 H 10/25/16 10:00 Respiratory Rate 18 10/25/16 10:00 Blood Pressure 115/80 10/25/16 10:00 O2 Sat by Pulse Oximetry (%) 100 10/25/16 09:55 Constitutional: Yes: No Distress, Calm Eyes: Yes: Conjunctiva Clear, EOM Intact Cardiovascular: Yes: Pulse Irregular, S1, S2. No: Bradycardia, Tachycardia, Bruit, JVD, Gallop, Murmur, Rub, S3, S4 Respiratory: Yes: Regular, Diminished, Rhonchi. No: Rales, Wheezes Gastrointestinal: Yes: Normal Bowel Sounds, Soft Edema: No Peripheral Pulses WNL: Yes Labs: CBC, BMP 10/25/16 05:05 10/25/16 05:05 INR, PTT INR 1.75 (0.82-1.09) H 10/24/16 09:30 - ....Imaging Chest X-ray: Report Reviewed, Image Reviewed EKG: Report Reviewed, Image Reviewed Other: Report Reviewed, Image Reviewed (tele-Paroxymal afib with periods of RVR) Assessment/Plan IMP: Advanced ALS Acute respiratory failure, probably multifactorial due to PNA and advanced ALS PAFib with RVR S/P Cardiopulmonary arrest in setting of acute respiratory failure, with recent echo normal LVEF and negative TnIs this admission REC: 1. PAFib with episodes of RVR; periods of Aflutter -wean cardizem gtt as tolerates -cont lopressor as BP tolerates, po cardizem was stopped -cont Digoxin as needed for additional rate control if BP doesnt tolerate other agents -Cont Eliquis 2. Acute respiratory failure: -multifactorial, likely due to advanced ALS -off ABx -s/p trach 3.Cardiopulmonary arrest:-Not a primary cardiac arrest -in setting of acute respiratory failure -LV function normal on echo -cardiac enzymes wnl -no additional cardiac work up needed at this point
--- NOTE | 2016-10-25 12:07 | OPR ---
Patient Name: Aarti Doe MR#: [id number] Procedure Date: 09/23/2016 Preoperative Diagnosis: Respiratory failure. Postoperative Diagnosis: same. Procedure: 1. Percutaneous tracheostomy with #8 Shiley; 2. Bronchoscopy (performed by Dr. Zendejas). Indication: Respiratory failure; Surgeon(s): Vitaly Tijerina MD Cosurgeon: amber Service Delivery Director Surgeon: Gumaro Zendejas MD. Anesthesia: General endotracheal; Findings: Abundant secretions. Specimens Sent: 1. na; Complications: none Drains / Tubes / Catheters: na Hardware / Implants: #8 Portex Blood / Fluid Losses: minimal Post-Operative Condition: Stable. Indications: This patient is a 56 year-old female with ALS and respiratory failure referred for tracheostomy by Dr. Zendejas and the ICU team. An informed consent was obtained. All questions were addressed and his family agreed. Details of Procedure: The procedure was done at the bedside. We began with bronchoscopy to clear the airway for the procedure. This was done by Dr. Zendejas. After this, the neck was prepared and draped in standard fashion. We then made a transverse incision below the cricoid cartilage. We withdrew the endotracheal airway until we were close to the vocal cords. With the incision in place, we inserted the needle from the percutaneous bronchoscopy kit under direct bronchoscopic vision identifying approximately the 2nd to 3rd ring. We then passed a wire under vision. We then dilated up and inserted the tracheostomy (# 8 Portex). We put the cuff up and connected the ventilator. We placed the bronchoscope through the tracheostomy and then above. There was minimal blood from the subcutaneous tissue that went into the airway. This was removed. There was no active bleeding and the placement was good.
--- NOTE | 2016-10-25 12:49 | PN ---
Teaching Attending Note Name of Resident: Junito Prieto ATTENDING PHYSICIAN STATEMENT I saw and evaluated the patient. I reviewed the resident's note and discussed the case with the resident. I agree with the resident's findings and plan as documented. SUBJECTIVE: Patient seen and examined in the ICU. S/P Perc Trach yesterday without events. Patient is awake and alert, and interactive. Appears much more comfortable with Trach. Tolerated CPAP wean, but placed back on AC mode of vent due to tachycardia and RR in the low 30's. CXR: Trach intact, no gross change, but atelectasis noted improving from 2 days ago Gen: Trached, vented, awake and responsive Heart: RRR Lung: decreased breath sounds at the bases Abd: soft, nontender Ext: no edema Laboratory Results - last 24 hr 10/24/16 10/24/16 10/24/16 12:12 12:45 17:23 WBC RBC Hgb Hct MCV MCH MCHC RDW Plt Count MPV Neutrophils % Lymphocytes % Monocytes % Eosinophils % Basophils % Sodium Potassium Chloride Carbon Dioxide Anion Gap BUN Creatinine POC Glucometer 150.69679 [phone] Random Glucose Calcium Phosphorus Magnesium Blood Type O POSITIVE Antibody Screen Negative 10/24/16 10/25/16 10/25/16 21:34 05:05 05:05 WBC 15.1 H RBC 3.24 L Hgb 9.6 L D Hct 29.6 L MCV 91.2 MCH 29.6 MCHC 32.5 RDW 14.8 Plt Count 313 MPV 10.6 Neutrophils % 93.7 H Lymphocytes % 3.5 L Monocytes % 2.6 L D Eosinophils % 0.0 Basophils % 0.2 Sodium 143 Potassium 4.4 Chloride 104 Carbon Dioxide 32 Anion Gap 7 L BUN 28 H Creatinine 0.4 L POC Glucometer 145.95979 Random Glucose 143 H Calcium 8.7 Phosphorus 3.6 D Magnesium 2.6 H Blood Type Antibody Screen 10/25/16 10/25/16 05:30 12:25 WBC RBC Hgb Hct MCV MCH MCHC RDW Plt Count MPV Neutrophils % Lymphocytes % Monocytes % Eosinophils % Basophils % Sodium Potassium Chloride Carbon Dioxide Anion Gap BUN Creatinine POC Glucometer 155.70570 137.55771 Random Glucose Calcium Phosphorus Magnesium Blood Type Antibody Screen ASSESSMENT AND PLAN: S/P Trach due to failure to wean due to ALS Acute on Chronic Hypoxic and Hypercapneic Respiratory Failure s/p Cardiac Arrest likely from Respiratory Failure Pneumonia Sepsis Lactic Acidosis resolved Advanced ALS Paroxysmal Atrial Fibrillation with RVR HTN Hyperthyroidism - Off ABX per ID - rate control with metoprolol / cardizem / digoxin per Cardiology - AC - enteral feeds - spontaneous breathing trials as tolerated - DVT/GI prophylaxis - Will need PEG Dr Grant Critical care time spent in reviewing chart, evaluating patient and formulating plan 35 min
[2016-10-25] MEDS ORDERED: METOPROLOL TARTRATE 5 MG/5 ML VIAL IVPUSH SCH (13:15)
--- NOTE | 2016-10-25 13:31 | PN ---
Physical Exam: SUBJECTIVE: Patient seen and examined at bedside. Trach completed yesterday. Pt doing well today, appears to be in good mood. Responsive to commands. OBJECTIVE: Vital Signs Period Temp Pulse Resp BP Sys/Hatch Pulse Ox Last 24 Hr 98.2 F-99.3 F 77-129 12-22 95-166/54-96 100-100 GENERAL: The patient is awake, alert, and fully oriented, in no acute distress. HEAD: NCAT EYES: PERRL, extraocular movements intact, sclera anicteric, conjunctiva clear. NECK: Trachea midline, tracheostomy site noted, supple. LUNGS: Breath sounds equal, clear to auscultation bilaterally, no wheezes, no crackles, no accessory muscle use. HEART: irregular rate and rhythm, S1, S2 without murmur, rub or gallop. ABDOMEN: Soft, nontender, nondistended, normoactive bowel sounds, no guarding, no rebound EXTREMITIES: 2+ posterior tibial pulses, warm, well-perfused NEUROLOGICAL: difficult to assess, but pt much improved, responsive to commands , improved handgrip PSYCH: positive mood Laboratory Results - last 24 hr 10/24/16 10/24/16 10/24/16 12:12 12:45 17:23 WBC RBC Hgb Hct MCV MCH MCHC RDW Plt Count MPV Neutrophils % Lymphocytes % Monocytes % Eosinophils % Basophils % Sodium Potassium Chloride Carbon Dioxide Anion Gap BUN Creatinine POC Glucometer 150.34899 [phone] Random Glucose Calcium Phosphorus Magnesium Blood Type O POSITIVE Antibody Screen Negative 10/24/16 10/25/16 10/25/16 21:34 05:05 05:05 WBC 15.1 H RBC 3.24 L Hgb 9.6 L D Hct 29.6 L MCV 91.2 MCH 29.6 MCHC 32.5 RDW 14.8 Plt Count 313 MPV 10.6 Neutrophils % 93.7 H Lymphocytes % 3.5 L Monocytes % 2.6 L D Eosinophils % 0.0 Basophils % 0.2 Sodium 143 Potassium 4.4 Chloride 104 Carbon Dioxide 32 Anion Gap 7 L BUN 28 H Creatinine 0.4 L POC Glucometer 145.21568 Random Glucose 143 H Calcium 8.7 Phosphorus 3.6 D Magnesium 2.6 H Blood Type Antibody Screen 10/25/16 10/25/16 05:30 12:25 WBC RBC Hgb Hct MCV MCH MCHC RDW Plt Count MPV Neutrophils % Lymphocytes % Monocytes % Eosinophils % Basophils % Sodium Potassium Chloride Carbon Dioxide Anion Gap BUN Creatinine POC Glucometer 155.87645 [phone] Random Glucose Calcium Phosphorus Magnesium Blood Type Antibody Screen Active Medications Generic Name Dose Route Start Last Admin Trade Name Freq PRN Reason Stop Dose Admin Acetaminophen 650 mg 10/18/16 20:41 10/23/16 09:32 Tylenol - PO 650 mg Q4H PRN Administration FEVER OR PAIN Albuterol/Ipratropium 1 amp 10/23/16 18:00 10/25/16 12:15 Duoneb - NEB 1 amp QIDR [facility] Administration Apixaban 5 mg 10/17/16 22:00 10/24/16 10:00 Eliquis - PO Not Given BID [facility] Chlorhexidine Gluconate 1 applic 10/16/16 22:00 10/24/16 21:31 Hibiclens For Decolonization - TP 1 applic HS [facility] Administration Chlorhexidine Gluconate 15 ml 10/16/16 12:15 10/25/16 10:12 Peridex - MM 15 ml BID [facility] Administration Digoxin 0.25 mg 10/23/16 08:57 10/23/16 09:27 Lanoxin Injection - IVPUSH 0.25 mg ONCE PRN Administration TACHYCARDIA Diltiazem HCl 10 mg 10/20/16 18:14 10/23/16 01:00 Cardizem Injection - IVPUSH 10 mg Q4H PRN Administration TACHYCARDIA Diltiazem HCl 125 mg/ Dextrose 125 mls @ 5 mls/hr 10/23/16 14:30 10/24/16 15:55 IVPB 5 mls/hr TITR [facility] Administration Protocol 5 MG/HR Sodium Chloride 1,000 mls @ 42 mls/hr 10/24/16 17:30 10/24/16 17:57 Normal Saline - IV 42 mls/hr ASDIR [facility] Administration Insulin Aspart 1 vial 10/24/16 07:00 10/25/16 12:29 Novolog Vial Sliding Scale - SQ Not Given ACHS [facility] Protocol Lidocaine HCl 1 applic 10/16/16 20:38 10/16/16 20:51 Xylocaine 2% Jelly TP 1 applic Q4H PRN Administration PAIN Methimazole 10 mg 10/16/16 10:00 10/25/16 10:04 Tapazole - NGT Not Given DAILY [facility] Methylprednisolone Sodium Succinate 40 mg 10/23/16 16:30 10/25/16 10:12 Solu-Medrol - IVPB 40 mg BID [facility] Administration Metoprolol Tartrate 50 mg 10/20/16 22:00 10/25/16 06:27 Lopressor - PO Not Given TID [facility] Metoprolol Tartrate 5 mg 10/25/16 13:15 Lopressor Injection - IVPUSH Q6H [facility] Mirtazapine 15 mg 10/16/16 10:00 10/25/16 10:03 Remeron - NGT Not Given DAILY [facility] Ranitidine HCl 150 mg 10/22/16 22:00 10/25/16 10:04 Zantac Oral Solution - NGT Not Given BID [facility] Scopolamine HBr 1 patch 10/17/16 19:15 10/23/16 18:18 Transderm-Scop - TD 1 patch Q72H [facility] Administration ASSESSMENT/PLAN: 56 yr old F with PMH ALS, chronic hypercapnic resp failure, HTN, HLD, hyperthyroidism, goiter, intubated to ED via EMS due to resp arrest. In ED, pt had cardiac arrest (V tach) for 5 min, was resuscitated and stabilized, admitted to ICU. # Acute on chronic respiratory failure secondary to possible aspiration pneumonia vs. ALS -Trach completed 10/24/16 -Pt for PEG placement tomorrow -Palliative on board -Continue osmolite feeds #subtherapeutic INR -INR 1.7 -FFP admin 1 unit -F/u INR # Anxiety -On Versed 2mg IVP PRN # Paroxysmal afib -Pt has been in and out of afib/aflutter -On Cardiazem drip 125 mg D5W -Continue rate control with lopressor 50mg TID, Cardiazem 10mg IVP PRN, Lopressor 5mg IVP q6 -Digoxin 0.25 mg IVP for increased rate control -Continue Eliquis 5mg PO BID -Will continue to monitor #Possible atelectasis -CXR: opacification of L hemithorax with L mediastinal shift -Repeat CXR tomorrow to determine if any change in status #Hyperthyroidism -Continue Methimazole #Major Depressive Disorder -Continue Remeron # s/p Cardiac arrest in ED possibly secondary to hypoxia -Troponins negative x2 -Echo: regional wall motion abnormalities can't be ruled out. When compared to Echo 10/10/16: no wall motion abnormalities # Diarrhea-resolved # Hypophosphatemia-resolved # Lactic acidosis secondary to cardiac arrest-resolved # Hypokalemia-resolved # Hypernatremia-resolved F/E/N IV NS 42 mls/hr Monitor electrolytes continue tube feeds Dispo [facility] Visit type - Emergency Visit Emergency Visit: No - New Patient This patient is new to me today: No - Critical Care Critical Care patient: Yes Total Critical Care Time (in minutes): 32 Critical Care Statement: The care of this patient involved high complexity decision making to prevent further life threatening deterioration of the patient 's condition and/or to evalute & treat vital organ system(s) failure or risk of failure.
--- NOTE | 2016-10-25 13:31 | PN ---
Physical Exam: SUBJECTIVE: 56 year old female w/ pmh ALS, chronic respiratory failure, afib, hyperthyroidism off vent s/p cardiac arrest in the ICU for worsening respiratory function. Patient is difficult to communicate with due to ALS status , but is able to answer questions and respond to commands. Family is frequently visiting her and they are able to answer questions. Tracheostomy OBJECTIVE: Vital Signs Period Temp Pulse Resp BP Sys/Hatch Pulse Ox Last 24 Hr 98.2 F-99.3 F 77-138 12-22 95-166/54-101 100-100 GENERAL: The patient is awake, alert, in no acute distress HEAD: Normal with no signs of trauma. EYES: PERRL, extraocular movements intact, sclera anicteric, conjunctiva clear. No ptosis. ENT: Ears normal, nares patent, oropharynx clear without exudates, moist mucous membranes. NECK: Trachea midline, surgical tracheostomy noted, full range of motion, supple. LUNGS: Breath sounds equal, patient breathing on trach HEART: regular rate and rhythm S1, S2 without murmur, rub or gallop. ABDOMEN: Soft, nontender, nondistended, normoactive bowel sounds, no guarding, no rebound, no hepatosplenomegaly, no masses. EXTREMITIES: 2+ pulses, warm, well-perfused, no edema. NEUROLOGICAL: Cranial nerves not able to be assessed, pt has b/l weakness in both upper and lower extremities, 3/5 muscle strength in b/l upper extremities, can grasp with b/l hands, can move toes SKIN: Warm, dry, normal turgor, no rashes or lesions noted Laboratory Results - last 24 hr 10/24/16 10/24/16 10/24/16 12:12 12:45 17:23 WBC RBC Hgb Hct MCV MCH MCHC RDW Plt Count MPV Neutrophils % Lymphocytes % Monocytes % Eosinophils % Basophils % Sodium Potassium Chloride Carbon Dioxide Anion Gap BUN Creatinine POC Glucometer [phone] Random Glucose Calcium Phosphorus Magnesium Blood Type O POSITIVE Antibody Screen Negative 10/24/16 10/25/16 10/25/16 21:34 05:05 05:05 WBC 15.1 H RBC 3.24 L Hgb 9.6 L D Hct 29.6 L MCV 91.2 MCH 29.6 MCHC 32.5 RDW 14.8 Plt Count 313 MPV 10.6 Neutrophils % 93.7 H Lymphocytes % 3.5 L Monocytes % 2.6 L D Eosinophils % 0.0 Basophils % 0.2 Sodium 143 Potassium 4.4 Chloride 104 Carbon Dioxide 32 Anion Gap 7 L BUN 28 H Creatinine 0.4 L POC Glucometer [phone] Random Glucose 143 H Calcium 8.7 Phosphorus 3.6 D Magnesium 2.6 H Blood Type Antibody Screen 10/25/16 10/25/16 05:30 12:25 WBC RBC Hgb Hct MCV MCH MCHC RDW Plt Count MPV Neutrophils % Lymphocytes % Monocytes % Eosinophils % Basophils % Sodium Potassium Chloride Carbon Dioxide Anion Gap BUN Creatinine POC Glucometer 155.55180 [phone] Random Glucose Calcium Phosphorus Magnesium Blood Type Antibody Screen Active Medications Generic Name Dose Route Start Last Admin Trade Name Freq PRN Reason Stop Dose Admin Acetaminophen 650 mg 10/18/16 20:41 10/23/16 09:32 Tylenol - PO 650 mg Q4H PRN Administration FEVER OR PAIN Albuterol/Ipratropium 1 amp 10/23/16 18:00 10/25/16 12:15 Duoneb - NEB 1 amp QIDR [facility]IL[facility] Administration Apixaban 5 mg 10/17/16 22:00 10/24/16 10:00 Eliquis - PO Not Given BID [facility] Chlorhexidine Gluconate 1 applic 10/16/16 22:00 10/24/16 21:31 Hibiclens For Decolonization - TP 1 applic HS [facility] Administration Chlorhexidine Gluconate 15 ml 10/16/16 12:15 10/25/16 10:12 Peridex - MM 15 ml BID [facility] Administration Digoxin 0.25 mg 10/23/16 08:57 10/23/16 09:27 Lanoxin Injection - IVPUSH 0.25 mg ONCE PRN Administration TACHYCARDIA Diltiazem HCl 10 mg 10/20/16 18:14 10/23/16 01:00 Cardizem Injection - IVPUSH 10 mg Q4H PRN Administration TACHYCARDIA Diltiazem HCl 125 mg/ Dextrose 125 mls @ 5 mls/hr 10/23/16 14:30 10/24/16 15:55 IVPB 5 mls/hr TITR SIL[facility] Administration Protocol 5 MG/HR Sodium Chloride 1,000 mls @ 42 mls/hr 10/24/16 17:30 10/24/16 17:57 Normal Saline - IV 42 mls/hr ASDIR [facility] Administration Insulin Aspart 1 vial 10/24/16 07:00 10/25/16 12:29 Novolog Vial Sliding Scale - SQ Not Given ACHS [facility] Protocol Lidocaine HCl 1 applic 10/16/16 20:38 10/16/16 20:51 Xylocaine 2% Jelly TP 1 applic Q4H PRN Administration PAIN Methimazole 10 mg 10/16/16 10:00 10/25/16 10:04 Tapazole - NGT Not Given DAILY [facility] Methylprednisolone Sodium Succinate 40 mg 10/23/16 16:30 10/25/16 10:12 Solu-Medrol - IVPB 40 mg BID [facility] Administration Metoprolol Tartrate 50 mg 10/20/16 22:00 10/25/16 13:17 Lopressor - PO Not Given TID [facility] Metoprolol Tartrate 5 mg 10/25/16 13:15 10/25/16 13:16 Lopressor Injection - IVPUSH 5 mg Q6H [facility] Administration Mirtazapine 15 mg 10/16/16 10:00 10/25/16 10:03 Remeron - NGT Not Given DAILY [facility] Ranitidine HCl 150 mg 10/22/16 22:00 10/25/16 10:04 Zantac Oral Solution - NGT Not Given BID [facility] Scopolamine HBr 1 patch 10/17/16 19:15 10/23/16 18:18 Transderm-Scop - TD 1 patch Q72H [facility] Administration Imaging: US duplex LE (10/16): no evidence of DVT Echo: (10/18): mild mitral regurgitation, mild pulmonic valve regurgitation, pleural effusion present, CXR (10/23): Total opacification of L hemithorax with L mediastinal shift CXR (10/24): No change from CXR on 10/23 - total opacification of L hemithorax with L mediastinal shift CXR (10/25): no significant change from CXR on 10/24 ASSESSMENT/PLAN: 56 year old female with chronic respiratory failure and worsening ALS, paroxysmal atrial fibrillation with rapid ventricular response s/p surgical tracheostomy on 10/24/16. Neuro: patient with worsening ALS -frequent neurochecks -monitor respiratory function on trach -provide versed 2mg Q1 PRN for agitation Cardiovascular: patient has hx of hypertension and afib w/ rvr - received dose of amiodarone and digoxin 2 nights agoto control rate; rate has not jumped to > 120 since this administration -switch metoprolol 50mg PO TID to IV metoprolol due to poor ability to administer PO medications -continue cardizem 10mg IV push PRN afib -continue cardizem TID -consider digoxin push if rate uncontrolled on cardizem -continue eloquis 5mg for afib -monitor BP, HR -AM labs Pulmonary: patient with poor respiratory function, s/p tracheostomy yesterday, breathing on vent, Doing well post-op, no complications -pt counseled on importance feeding tube for nutrition -CXR showed total opacification of L hemithorax w/ L mediastinal shift likely due to atelectasis/mucus plugging -ordered chest PT to clear mucus -attempt to remove mucus during surgical tracheostomy -AM CXR GI: ALS pt s/p trach consulted about possible PEG for nutrition -GI is on board, will likely do PEG tomorrow Endocrine: pt with hx of hyperthyroidism -continue home methimazole Proph: -continue ranitidine Dispo: -patient stable for transfer to [facility] (telemetry) for monitoring, pending bed Problem List - Problems (1) Respiratory failure requiring intubation Code(s): J96.90 - RESPIRATORY FAILURE, UNSP, UNSP W HYPOXIA OR HYPERCAPNIA (2) ALS (amyotrophic lateral sclerosis) Code(s): G12.21 - AMYOTROPHIC LATERAL SCLEROSIS Visit type - Emergency Visit Emergency Visit: No - New Patient This patient is new to me today: No - Critical Care Critical Care patient: Yes Total Critical Care Time (in minutes): 30 Critical Care Statement: The care of this patient involved high complexity decision making to prevent further life threatening deterioration of the patient 's condition and/or to evalute & treat vital organ system(s) failure or risk of failure.
--- NOTE | 2016-10-25 14:40 | PN ---
Teaching Attending Note Name of Resident: Manjula Delvalle ATTENDING PHYSICIAN STATEMENT I saw and evaluated the patient. I reviewed the resident's note and discussed the case with the resident. I agree with the resident's findings and plan as documented. SUBJECTIVE: Patient more alert today. On CPAP via trach. OBJECTIVE: Vital Signs Period Temp Pulse Resp BP Sys/Hatch Pulse Ox Last 24 Hr 98.2 F-99.3 F 77-138 14-22 95-166/54-101 100-100 HEART: Irregular, tachycardic LUNGS: Clear ABDOMEN: Soft, non-distended, normal BS EXTREMITIES: No edema ASSESSMENT AND PLAN: This is a 56-year-old woman with a history of ALS, chronic hypercapnic respiratory failure, HTN, hyperthyroidism, atrial fib, hyperlipidemia who was brought in to the ER after being intubated by EMS for acute respiratory distress and subsequently had cardiac arrest in the ER. 1. s/p cardiac arrest, likely secondary to hypoxia vs electrolyte abnormality 2. Acute on chronic hypoxic and hypercapnic respiratory failure - Continue SoluMedrol, DuoNeb - s/p tracheostomy today - Wean vent as per pulmonary/critical care - Palliative care following - Evaluation for transfer to [facility] 3. Lactic acidemia - Resolved 4. Hypokalemia - Improved 5. Hypophosphatemia - Improved 6. Hyperthyroidism - Continue Tapazole 7. HTN - Continue Cardizem, Lopressor 8. Atrial fibrillation/flutter with RVR - TSH is OK - Current rhythm is atrial fib with RVR - Lopressor changed to IV - Oral Cardizem discontinued - Wean Cardizem IV drip as tolerated - Continue Cardizem IV as needed, Digoxin IV as needed - Continue Eliquis 9. Hyperlipidemia 10. Depression - Continue Remeron 11. ALS 12. DVT prophylaxis - On Eliquis 13. Stress ulcer prophylaxis - On Zantac 14. Nutrition - Plan for PEG
[2016-10-25] MEDS: SODIUM CHLORIDE 1,000 ML IV SCH ×2 (17:11→20:00)
--- NOTE | 2016-10-25 19:17 | CONS ---
DATE OF CONSULTATION: 10/25/2016 PHYSICAL MEDICINE REHABILITATION CONSULTATION REFERRING PHYSICIAN: Dr. Junito Dixon HISTORY OF PRESENT ILLNESS: Patient is a 56-year-old woman with past medical history of ALS, hypertension, hypothyroidism, who was admitted with respiratory failure on October 15. Patient evidently was intubated en route and subsequently underwent tracheostomy. She remains intubated and has difficulty with communication due to her ALS. She has very little upper or lower extremity movement. Other past recent admission included atrial fibrillation with rapid ventricular response, and the patient has been bedbound since January 2016. Patient apparently is on Eliquis for the underlying atrial fibrillation. She was seen by Dr. Carr from neurology and treated with IV antibiotics for infiltrates in both lungs. Most recent blood work included a CBC on October 25 with WBCs 15.1, hemoglobin 9.6, platelet count 313. INR 1.75. Last chemistry was done today. BUN 28, elevated creatinine 0.40, magnesium level high at 2.6. Normal sodium 143, potassium 4.4, chloride 104, CO2 of 32. Review of past medical and surgical history as above. Atrial fibrillation, hypertension, hypothyroidism, and ALS in advanced stages, bedbound since January 2016. SOCIAL HISTORY: As above. REVIEW OF SYSTEMS: Difficult due to patient's inability to communicate, but she does nod and seems to have an inability to speak because of the weakness when intubation as well as muscle weakness, but no difficulty feeling, no chest pain, shortness of breath, no fever, chills, no bowel/bladder change. PHYSICAL EXAMINATION: General: Patient seen lying in bed. She is awake. Tracks with her eyes. Seems to respond appropriately. HEENT: She has facial weakness, but her extraocular muscles appear intact. Tracheostomy. Extremities: Trace edema without any calf tenderness. Neuromuscular: She is awake, alert. Cranial nerves difficult to assess. She has very minimal movement volitionally in the lower extremities. Perhaps she can move her toes slightly. I did not observe this. She also has severe weakness in her upper extremities with very little active movement noted. Her passive range however is fairly good with just a little bit of loss in the shoulder girdle and full elbow flexion, elbow extension. Full wrist range of motion, finger range of motion. The lower extremities, good internal-external rotation of her hips, good knee range of motion, and good ankle range of motion all with low tone except for perhaps in the shoulders she winces to pin stimulus. OVERALL IMPRESSION: 1. Severe and irreversible deficits in mobility and activities of daily living . 2. Amyotrophic lateral sclerosis, advanced stages. 3. Respiratory failure, status post tracheostomy on intubation. 4. Pneumonia. 5. Hypertension. 6. Hypoparathyroidism. 7. Atrial fibrillation status post rapid ventricular response. 8. Anemia. 9. Leukocytosis. Possibly due to Solu-Medrol. 10. Elevated risk for skin breakdown. PLAN/SUGGESTION: 1. Supportive care. 2. Nursing for daily range of motion. 3. On Eliquis, no further DVT prophylaxis needed. 4. Skin precautions, avoiding heel and sacral pressure and turning patient every 2 hours. 5. Bowel regimen, monitor for constipation. 6. Consider speech pathology for communication options if not done recently, if there are any, if not consulted recently. 7. Long-term care. Thank you for this referral. BETSY LAY M.D. [id number]
[2016-10-25] MEDS ORDERED: dilTIAZem HCL 125 MG/25 ML - 5 ML VIAL ONE (19:35)
[2016-10-25] MEDS: DILTIAZEM INJECTION 125 MG in DEXTROSE 5%-WATER - 100 ML IVPB SCH (19:55)
[2016-10-25] MEDS ORDERED: dilTIAZem HCL 50 MG/10 ML - 10 ML VIAL IVPUSH PRN (19:59)
[2016-10-25] MEDS ORDERED: DIGOXIN 0.5 MG/2 ML AMPUL IVPUSH PRN (19:59)
[2016-10-25] MEDS ORDERED: LIDOCAINE HCL 2% JELLY (30 ML/TUBE) TP PRN (19:59)
[2016-10-25] MEDS: METOPROLOL TARTRATE 5 MG/5 ML VIAL IVPUSH SCH (21:37)
[2016-10-25] MEDS: APIXABAN 5 MG TABLET PO SCH (21:38)
[2016-10-25] MEDS: CHLORHEXIDINE GLUCONATE 4% CLEANSER FOR DECOLONIZATION TP SCH (21:38)
[2016-10-25] MEDS ORDERED: HYDROmorphone HCL CARPU-JECT 1 MG/1 ML DISP.SYRIN IVPUSH STA (22:08)
[2016-10-25] MEDS ORDERED: HYDROmorphone HCL CARPU-JECT 1 MG/1 ML DISP.SYRIN ONE (22:10)
[2016-10-26] MEDS: HYDROmorphone HCL CARPU-JECT 1 MG/1 ML DISP.SYRIN IVPUSH PRN ×4 (00:28→20:40)
[2016-10-26] MEDS ORDERED: PT OWN MED DRAWER 7, Y5N ONE ×2 (01:20→12:13)
[2016-10-26] MEDS: METOPROLOL TARTRATE 5 MG/5 ML VIAL IVPUSH SCH ×3 (02:38→14:32)
[2016-10-26] MEDS: ALBUTEROL SO4 2.5/IPRATROPIUM 0.5 INH SOL 3 ML VIAL.NEB. NEB SCH ×3 (05:24→17:15)
[2016-10-26] MEDS: METOPROLOL TARTRATE 50 MG TABLET (FP) PO SCH ×3 (05:42→21:10)
[2016-10-26 06:05] LABS: BASOPHIL 0.1 % (0-2.0); EOSINOPHIL 0.1 % (0-4.5); MCH 29.7 pg (25.7-33.7); MCHC 32.2 g/dl (32.0-36.0); MEAN CELL VOLUME 92.1 fl (80-96); MEAN PLT VOLUME 10.4 fl (7.5-11.1); NEUTROPHILS 95.2 % (42.8-82.8); PLATELET COUNT 381 K/MM3 (134-434); RDW 14.7 % (11.6-15.6); WHITE BLOOD COUNT 17.9 K/mm3 (4.0-10.0)
[2016-10-26] MEDS: INSULIN SLIDING SCALE (NOVOLOG) 1 VIAL SQ SCH ×4 (06:32→22:09)
[2016-10-26 06:40] LABS: ANION GAP 8 (8-16); CALCIUM 9.1 mg/dL (8.5-10.1); CO2 30 mmol/L (21-32); CREATININE 0.4 mg/dL (0.55-1.02); GLUCOSE,RANDOM 149 mg/dL (74-106); MAGNESIUM 2.7 mg/dL (1.8-2.4); PHOSPHOROUS 3.6 mg/dL (2.5-4.9)
--- NOTE | 2016-10-26 07:57 | PN ---
Progress Note, Physician Chief Complaint: ID Remains off antibiotics On steroids hence leukocytosis No fever - Current Medication List Current Medications: Active Medications Acetaminophen (Tylenol -) 650 mg PO Q4H PRN PRN Reason: FEVER OR PAIN Albuterol/Ipratropium (Duoneb -) 1 amp NEB QIDR [facility] Last Admin: 10/26/16 05:24 Dose: 1 amp Apixaban (Eliquis -) 5 mg PO BID [facility] Last Admin: 10/25/16 21:38 Dose: Not Given Chlorhexidine Gluconate (Hibiclens For Decolonization -) 1 applic TP HS [facility] Last Admin: 10/25/16 21:38 Dose: 1 applic Chlorhexidine Gluconate (Peridex -) 15 ml MM BID [facility] Last Admin: 10/25/16 21:37 Dose: 15 ml Digoxin (Lanoxin Injection -) 0.25 mg IVPUSH ONCE PRN PRN Reason: TACHYCARDIA Diltiazem HCl (Cardizem Injection -) 10 mg IVPUSH Q4H PRN PRN Reason: TACHYCARDIA Hydromorphone HCl (Dilaudid Injection -) 1 mg IVPUSH Q6H PRN PRN Reason: PAIN Last Admin: 10/26/16 05:42 Dose: 1 mg Diltiazem HCl 125 mg/ Dextrose 125 mls @ 5 mls/hr IVPB TITR [facility]; 5 MG/HR PRN Reason: Protocol Last Admin: 10/25/16 19:55 Dose: 5 mls/hr Sodium Chloride (Normal Saline -) 1,000 mls @ 42 mls/hr IV ASDIR [facility] Last Admin: 10/25/16 20:00 Dose: 42 mls/hr Insulin Aspart (Novolog Vial Sliding Scale -) 1 vial SQ ACHS [facility] PRN Reason: Protocol Last Admin: 10/26/16 06:32 Dose: Not Given Lidocaine HCl (Xylocaine 2% Jelly) 1 applic TP Q4H PRN PRN Reason: PAIN Methimazole (Tapazole -) 10 mg NGT DAILY [facility] Methylprednisolone Sodium Succinate (Solu-Medrol -) 40 mg IVPB BID [facility] Last Admin: 10/25/16 21:37 Dose: 40 mg Metoprolol Tartrate (Lopressor Injection -) 5 mg IVPUSH Q6H-IV [facility] Last Admin: 10/26/16 02:38 Dose: 5 mg Metoprolol Tartrate (Lopressor -) 50 mg PO TID [facility] Last Admin: 10/26/16 05:42 Dose: Not Given Mirtazapine (Remeron -) 15 mg NGT DAILY [facility] Ranitidine HCl (Zantac Oral Solution -) 150 mg NGT BID [facility] Last Admin: 10/25/16 21:38 Dose: Not Given Scopolamine HBr (Transderm-Scop -) 1 patch TD Q72H [facility] - Objective Vital Signs: Vital Signs Temperature 98.2 F 10/26/16 06:00 Pulse Rate 79 10/26/16 06:00 Respiratory Rate 14 10/26/16 06:26 Blood Pressure 130/96 10/26/16 06:00 O2 Sat by Pulse Oximetry (%) 100 10/25/16 21:00 Constitutional: Yes: No Distress, Other (Vent depenedent) Cardiovascular: Yes: Regular Rate and Rhythm, S1, S2 Respiratory: Yes: WNL, Regular, CTA Bilaterally Gastrointestinal: Yes: WNL, Normal Bowel Sounds. No: Tenderness Edema: No Labs: CBC, BMP 10/26/16 05:10 10/26/16 05:10 INR, PTT INR 1.75 (0.82-1.09) H 10/24/16 09:30 Problem List - Problems (1) ALS (amyotrophic lateral sclerosis) Code(s): G12.21 - AMYOTROPHIC LATERAL SCLEROSIS (2) Cardiac arrest Code(s): I46.9 - CARDIAC ARREST, CAUSE UNSPECIFIED (3) Respiratory failure requiring intubation Code(s): J96.90 - RESPIRATORY FAILURE, UNSP, UNSP W HYPOXIA OR HYPERCAPNIA (4) Fever Code(s): R50.9 - FEVER, UNSPECIFIED Assessment/Plan Microbiology 10/23/16 11:25 Sputum - Endotrachea Suction/Ventilator Gram Stain - Final 10/23/16 11:25 Sputum - Endotrachea Suction/Ventilator Sputum Culture - Final Enterobacter Cloacae 10/23/16 09:57 Blood - Peripheral Venous Blood Culture - Preliminary NO GROWTH OBTAINED AFTER 48 HOURS, INCUBATION TO CONTINUE FOR 3 DAYS. 10/23/16 09:23 Blood - Peripheral Venous Blood Culture - Preliminary NO GROWTH OBTAINED AFTER 48 HOURS, INCUBATION TO CONTINUE FOR 3 DAYS. Laboratory Tests 10/26/16 10/26/16 05:10 05:10 WBC 17.9 H Hgb 11.3 D Hct 35.0 D Plt Count 381 D BUN 33 H Creatinine 0.4 L Assessment ALS Opacified left lung post bronch ? Infiltrate Respiratory failure though no change for the worse in ventilatory status Leukocytosis on steroids Enterobacter Plan Going to hold off on antibiotics for now Margot LOVELACE
--- NOTE | 2016-10-26 08:41 | PN ---
Progress Note, Physician Chief Complaint: s/p trach TELE: AF again, 115-120 - Current Medication List Current Medications: Active Medications Acetaminophen (Tylenol -) 650 mg PO Q4H PRN PRN Reason: FEVER OR PAIN Albuterol/Ipratropium (Duoneb -) 1 amp NEB QIDR [facility] Last Admin: 10/26/16 05:24 Dose: 1 amp Apixaban (Eliquis -) 5 mg PO BID [facility] Last Admin: 10/25/16 21:38 Dose: Not Given Chlorhexidine Gluconate (Hibiclens For Decolonization -) 1 applic TP HS [facility] Last Admin: 10/25/16 21:38 Dose: 1 applic Chlorhexidine Gluconate (Peridex -) 15 ml MM BID [facility] Last Admin: 10/25/16 21:37 Dose: 15 ml Digoxin (Lanoxin Injection -) 0.25 mg IVPUSH ONCE PRN PRN Reason: TACHYCARDIA Diltiazem HCl (Cardizem Injection -) 10 mg IVPUSH Q4H PRN PRN Reason: TACHYCARDIA Hydromorphone HCl (Dilaudid Injection -) 1 mg IVPUSH Q6H PRN PRN Reason: PAIN Last Admin: 10/26/16 05:42 Dose: 1 mg Diltiazem HCl 125 mg/ Dextrose 125 mls @ 5 mls/hr IVPB TITR [facility]; 5 MG/HR PRN Reason: Protocol Last Admin: 10/25/16 19:55 Dose: 5 mls/hr Sodium Chloride (Normal Saline -) 1,000 mls @ 42 mls/hr IV ASDIR [facility] Last Admin: 10/25/16 20:00 Dose: 42 mls/hr Insulin Aspart (Novolog Vial Sliding Scale -) 1 vial SQ ACHS [facility] PRN Reason: Protocol Last Admin: 10/26/16 06:32 Dose: Not Given Lidocaine HCl (Xylocaine 2% Jelly) 1 applic TP Q4H PRN PRN Reason: PAIN Methimazole (Tapazole -) 10 mg NGT DAILY [facility] Methylprednisolone Sodium Succinate (Solu-Medrol -) 40 mg IVPB BID [facility] Last Admin: 10/25/16 21:37 Dose: 40 mg Metoprolol Tartrate (Lopressor Injection -) 5 mg IVPUSH Q6H-IV [facility] Last Admin: 10/26/16 08:29 Dose: 5 mg Metoprolol Tartrate (Lopressor -) 50 mg PO TID [facility] Last Admin: 10/26/16 05:42 Dose: Not Given Mirtazapine (Remeron -) 15 mg NGT DAILY [facility] Ranitidine HCl (Zantac Oral Solution -) 150 mg NGT BID [facility] Last Admin: 10/25/16 21:38 Dose: Not Given Scopolamine HBr (Transderm-Scop -) 1 patch TD Q72H [facility] - Objective Vital Signs: Vital Signs Temperature 98.2 F 10/26/16 06:00 Pulse Rate 148 H 10/26/16 08:29 Respiratory Rate 14 10/26/16 08:00 Blood Pressure 140/93 10/26/16 08:29 O2 Sat by Pulse Oximetry (%) 100 10/25/16 21:00 Constitutional: Yes: Calm HENT: Yes: Other (+ trach) Cardiovascular: Yes: Pulse Irregular Respiratory: Yes: Other (= breath sounds b/l) Gastrointestinal: Yes: Soft Edema: No Labs: CBC, BMP 10/26/16 05:10 10/26/16 05:10 INR, PTT INR 1.75 (0.82-1.09) H 10/24/16 09:30 Laboratory Tests 10/26/16 10/26/16 05:10 05:10 WBC 17.9 H Hgb 11.3 D Plt Count 381 D Sodium 143 Potassium 3.9 Creatinine 0.4 L Magnesium 2.7 H - ....Imaging EKG: Image Reviewed Problem List - Problems (1) Cardiac arrest Code(s): I46.9 - CARDIAC ARREST, CAUSE UNSPECIFIED (2) Pneumonia Code(s): J18.9 - PNEUMONIA, UNSPECIFIED ORGANISM Qualifiers: Pneumonia type: due to unspecified organism Laterality: left Lung location: upper lobe of lung Qualified Code(s): J18.1 - Lobar pneumonia, unspecified organism (3) Respiratory failure requiring intubation Code(s): J96.90 - RESPIRATORY FAILURE, UNSP, UNSP W HYPOXIA OR HYPERCAPNIA (4) ALS (amyotrophic lateral sclerosis) Code(s): G12.21 - AMYOTROPHIC LATERAL SCLEROSIS Assessment/Plan IMP: Advanced ALS Acute respiratory failure, probably multifactorial due to PNA and advanced ALS PAFib with RVR S/P Cardiopulmonary arrest in setting of acute respiratory failure, with recent echo normal LVEF and negative TnIs this admission REC: 1. PAFib with episodes of RVR; periods of Aflutter -wean cardizem gtt as tolerates -cont lopressor as BP tolerates, po cardizem was stopped -start digoxin PO, BP is lowish- will not tolerate additional BBlocker -Cont Eliquis 2. Acute respiratory failure: -multifactorial, likely due to advanced ALS -off ABx -s/p trach 3.Cardiopulmonary arrest:-Not a primary cardiac arrest -in setting of acute respiratory failure -LV function normal on echo -cardiac enzymes wnl -no additional cardiac work up needed at this point
[2016-10-26] MEDS: CHLORHEXIDINE GLUCONATE 0.12% 15ML CUP MM SCH ×2 (09:21→21:10)
[2016-10-26] MEDS: methylPREDNISolone NA SUCC 40 MG/1 ML VIAL IVPB SCH ×2 (09:21→21:10)
--- NOTE | 2016-10-26 10:03 | EKG ---
Test Reason : Blood Pressure : / mmHG Vent. Rate : 159 BPM Atrial Rate : 174 BPM P-R Int : 000 ms QRS Dur : 072 ms QT Int : 246 ms P-R-T Axes : 000 049 249 degrees QTc Int : 400 ms POOR DATA QUALITY, INTERPRETATION MAY BE ADVERSELY AFFECTED ATRIAL FIBRILLATION WITH RAPID VENTRICULAR RESPONSE MARKED ST ABNORMALITY, POSSIBLE INFEROLATERAL SUBENDOCARDIAL INJURY ABNORMAL ECG WHEN COMPARED WITH ECG OF 15-OCT-2016 21:47, SIGNIFICANT CHANGES HAVE OCCURRED Confirmed by SHAREE SCHWARZ MD ([id number]) on 10/26/2016 10:03:08 AM Referred By: SPENCER FOX Confirmed By:SHAREE SCHWARZ MD
[2016-10-26] MEDS ORDERED: dilTIAZem HCL 50 MG/10 ML - 10 ML VIAL ONE (11:08)
[2016-10-26] MEDS: SODIUM CHLORIDE 1,000 ML IV SCH ×2 (11:45→20:10)
--- NOTE | 2016-10-26 11:49 | PN ---
Teaching Attending Note Name of Resident: Junito Prieto ATTENDING PHYSICIAN STATEMENT I saw and evaluated the patient. I reviewed the resident's note and discussed the case with the resident. I agree with the resident's findings and plan as documented. SUBJECTIVE: Patient seen and examined in the ICU. Awake and interactive. Remains on Cradizem drip as she does not have a NGT. AC Mode of vent. Intermittent Rapid AFib. Intake & Output 10/23/16 10/24/16 10/25/16 10/26/16 23:59 23:59 23:59 23:59 Intake Total 3150 505 1363 329 Output Total 2500 600 1050 250 Balance 650 -95 313 79 Weight 164 lb 3.91 oz 166 lb 3.657 oz 165 lb 6.4 oz 165 lb 1 oz Last Vital Signs Temp Pulse Resp BP Pulse Ox 98 F 101 H 16 164/99 98 10/26/16 10:00 10/26/16 10:50 10/26/16 10:00 10/26/16 10:00 10/26/16 10:50 Active Medications Acetaminophen (Tylenol -) 650 mg PO Q4H PRN PRN Reason: FEVER OR PAIN Albuterol/Ipratropium (Duoneb -) 1 amp NEB QIDR COUNT INCLUDES THE [facility] Last Admin: 10/26/16 11:05 Dose: 1 amp Apixaban (Eliquis -) 5 mg PO BID COUNT INCLUDES THE [facility] Last Admin: 10/25/16 21:38 Dose: Not Given Chlorhexidine Gluconate (Hibiclens For Decolonization -) 1 applic TP HS COUNT INCLUDES THE [facility] Last Admin: 10/25/16 21:38 Dose: 1 applic Chlorhexidine Gluconate (Peridex -) 15 ml MM BID COUNT INCLUDES THE [facility] Last Admin: 10/26/16 09:21 Dose: 15 ml Digoxin (Lanoxin Injection -) 0.25 mg IVPUSH ONCE PRN PRN Reason: TACHYCARDIA Digoxin (Lanoxin -) 0.125 mg PO DAILY COUNT INCLUDES THE [facility] Diltiazem HCl (Cardizem Injection -) 10 mg IVPUSH Q4H PRN PRN Reason: TACHYCARDIA Last Admin: 10/26/16 11:11 Dose: 10 mg Hydromorphone HCl (Dilaudid Injection -) 1 mg IVPUSH Q6H PRN PRN Reason: PAIN Last Admin: 10/26/16 05:42 Dose: 1 mg Diltiazem HCl 125 mg/ Dextrose 125 mls @ 5 mls/hr IVPB TITR [facility]IL[facility]; 5 MG/HR PRN Reason: Protocol Last Admin: 10/25/16 19:55 Dose: 5 mls/hr Sodium Chloride (Normal Saline -) 1,000 mls @ 42 mls/hr IV ASDIR COUNT INCLUDES THE [facility] Last Admin: 10/26/16 11:45 Dose: 42 mls/hr Insulin Aspart (Novolog Vial Sliding Scale -) 1 vial SQ ACHS [facility] PRN Reason: Protocol Last Admin: 10/26/16 06:32 Dose: Not Given Lidocaine HCl (Xylocaine 2% Jelly) 1 applic TP Q4H PRN PRN Reason: PAIN Methimazole (Tapazole -) 10 mg NGT DAILY COUNT INCLUDES THE [facility] Methylprednisolone Sodium Succinate (Solu-Medrol -) 40 mg IVPB BID COUNT INCLUDES THE [facility] Last Admin: 10/26/16 09:21 Dose: 40 mg Metoprolol Tartrate (Lopressor Injection -) 5 mg IVPUSH Q6H-IV COUNT INCLUDES THE [facility] Last Admin: 10/26/16 08:29 Dose: 5 mg Metoprolol Tartrate (Lopressor -) 50 mg PO TID COUNT INCLUDES THE [facility] Last Admin: 10/26/16 05:42 Dose: Not Given Mirtazapine (Remeron -) 15 mg NGT DAILY COUNT INCLUDES THE [facility] Ranitidine HCl (Zantac Oral Solution -) 150 mg NGT BID COUNT INCLUDES THE [facility] Last Admin: 10/25/16 21:38 Dose: Not Given Scopolamine HBr (Transderm-Scop -) 1 patch TD Q72H COUNT INCLUDES THE [facility] Gen: Trached, vented, awake and responsive Heart: RRR Lung: decreased breath sounds at the bases Abd: soft, nontender Ext: no edema Laboratory Results - last 24 hr 10/25/16 10/25/16 10/25/16 12:25 16:34 21:48 WBC RBC Hgb Hct MCV MCH MCHC RDW Plt Count MPV Neutrophils % Lymphocytes % Monocytes % Eosinophils % Basophils % Sodium Potassium Chloride Carbon Dioxide Anion Gap BUN Creatinine POC Glucometer 137.44504 142.92040 148.44527 Random Glucose Calcium Phosphorus Magnesium 10/26/16 10/26/16 10/26/16 05:10 05:10 06:23 WBC 17.9 H RBC 3.80 Hgb 11.3 D Hct 35.0 D MCV 92.1 MCH 29.7 MCHC 32.2 RDW 14.7 Plt Count 381 D MPV 10.4 Neutrophils % 95.2 H Lymphocytes % 2.8 L Monocytes % 1.8 L Eosinophils % 0.1 D Basophils % 0.1 Sodium 143 Potassium 3.9 Chloride 105 Carbon Dioxide 30 Anion Gap 8 BUN 33 H Creatinine 0.4 L POC Glucometer 157.08800 Random Glucose 149 H Calcium 9.1 Phosphorus 3.6 Magnesium 2.7 H ASSESSMENT AND PLAN: S/P Trach due to failure to wean due to ALS Acute on Chronic Hypoxic and Hypercapneic Respiratory Failure s/p Cardiac Arrest likely from Respiratory Failure Pneumonia Sepsis Lactic Acidosis resolved Advanced ALS Paroxysmal Atrial Fibrillation with RVR HTN Hyperthyroidism - Off ABX per ID - rate control with metoprolol / cardizem after NGT inserted - AC - enteral feeds - spontaneous breathing trials as tolerated - DVT/GI prophylaxis - Will need PEG Dr Grant Critical care time spent in reviewing chart, evaluating patient and formulating plan 35 min
[2016-10-26] MEDS ORDERED: dilTIAZem HCL 125 MG/25 ML - 5 ML VIAL ONE ×2 (12:14→23:59)
[2016-10-26] MEDS: DIGOXIN 0.125 MG TABLET (FP) PO SCH (12:15)
[2016-10-26] MEDS: RANITIDINE HCL 150 MG/10 ML UNIT-DOSE CUP NGT SCH ×2 (12:15→21:09)
[2016-10-26] MEDS: MIRTAZAPINE 15 MG TABLET (FP) NGT SCH (12:16)
[2016-10-26] MEDS: APIXABAN 5 MG TABLET PO SCH ×2 (12:16→21:09)
[2016-10-26] MEDS: METHIMAZOLE 10 MG TABLET (FP) NGT SCH (12:16)
--- NOTE | 2016-10-26 13:19 | PN ---
Physical Exam: SUBJECTIVE: Patient seen and examined at bedside today. Overnight, as per nurse , pt complained of throat pain and was given hydromorphine 1mg. Today pt appears well, son at bedside. Does not seem to be in acute distress, responsive to commands and questions. OBJECTIVE: Vital Signs Period Temp Pulse Resp BP Sys/Hatch Pulse Ox Last 24 Hr 97.5 F-99.3 F 73-148 14-21 130-164/82-101 98-100 GENERAL: The patient is awake, alert, and fully oriented, in no acute distress. HEAD: Normal with no signs of trauma. EYES: PERRL, extraocular movements intact, sclera anicteric, conjunctiva clear. NECK: Trachea midline, trach site clean LUNGS: Breath sounds equal, clear to auscultation bilaterally, no wheezes, no crackles, no accessory muscle use. HEART: Regular rate and rhythm, S1, S2 without murmur, rub or gallop. ABDOMEN: Soft, nontender, nondistended, normoactive bowel sounds, no guarding, no rebound EXTREMITIES: 2+ posterior tibial pulses, warm, well-perfused, no edema. NEUROLOGICAL: unable to assess cranial nerves, but pt responsive to questions and commands, handgrip 3/5 strength Laboratory Results - last 24 hr 10/25/16 10/25/16 10/26/16 16:34 21:48 05:10 WBC 17.9 H RBC 3.80 Hgb 11.3 D Hct 35.0 D MCV 92.1 MCH 29.7 MCHC 32.2 RDW 14.7 Plt Count 381 D MPV 10.4 Neutrophils % 95.2 H Lymphocytes % 2.8 L Monocytes % 1.8 L Eosinophils % 0.1 D Basophils % 0.1 Sodium Potassium Chloride Carbon Dioxide Anion Gap BUN Creatinine POC Glucometer 142.41571 148.84629 Random Glucose Calcium Phosphorus Magnesium 10/26/16 10/26/16 10/26/16 05:10 06:23 12:35 WBC RBC Hgb Hct MCV MCH MCHC RDW Plt Count MPV Neutrophils % Lymphocytes % Monocytes % Eosinophils % Basophils % Sodium 143 Potassium 3.9 Chloride 105 Carbon Dioxide 30 Anion Gap 8 BUN 33 H Creatinine 0.4 L POC Glucometer 157.20713 170.23925 Random Glucose 149 H Calcium 9.1 Phosphorus 3.6 Magnesium 2.7 H Active Medications Generic Name Dose Route Start Last Admin Trade Name Freq PRN Reason Stop Dose Admin Acetaminophen 650 mg 10/25/16 19:59 Tylenol - PO Q4H PRN FEVER OR PAIN Albuterol/Ipratropium 1 amp 10/26/16 00:00 10/26/16 11:05 Duoneb - NEB 1 amp QIDR [facility] Administration Apixaban 5 mg 10/25/16 22:00 10/26/16 12:16 Eliquis - PO 5 mg BID [facility] Administration Chlorhexidine Gluconate 1 applic 10/25/16 22:00 10/25/16 21:38 Hibiclens For Decolonization - TP 1 applic HS [facility] Administration Chlorhexidine Gluconate 15 ml 10/25/16 22:00 10/26/16 09:21 Peridex - MM 15 ml BID [facility] Administration Digoxin 0.25 mg 10/25/16 19:59 Lanoxin Injection - IVPUSH ONCE PRN TACHYCARDIA Digoxin 0.125 mg 10/26/16 10:00 10/26/16 12:15 Lanoxin - PO 0.125 mg DAILY [facility] Administration Diltiazem HCl 10 mg 10/25/16 19:59 10/26/16 11:11 Cardizem Injection - IVPUSH 10 mg Q4H PRN Administration TACHYCARDIA Hydromorphone HCl 1 mg 10/25/16 22:09 10/26/16 12:17 Dilaudid Injection - IVPUSH 1 mg Q6H PRN Administration PAIN Diltiazem HCl 125 mg/ Dextrose 125 mls @ 5 mls/hr 10/25/16 19:59 10/25/16 19:55 IVPB 5 mls/hr TITR [facility] Administration Protocol 5 MG/HR Sodium Chloride 1,000 mls @ 42 mls/hr 10/25/16 19:59 10/26/16 11:45 Normal Saline - IV 42 mls/hr ASDIR [facility] Administration Insulin Aspart 1 vial 10/25/16 22:00 10/26/16 06:32 Novolog Vial Sliding Scale - SQ Not Given ACHS [facility] Protocol Lidocaine HCl 1 applic 10/25/16 19:59 Xylocaine 2% Jelly TP Q4H PRN PAIN Methimazole 10 mg 10/26/16 10:00 10/26/16 12:16 Tapazole - NGT 10 mg DAILY [facility] Administration Methylprednisolone Sodium Succinate 40 mg 10/25/16 22:00 10/26/16 09:21 Solu-Medrol - IVPB 40 mg BID [facility] Administration Metoprolol Tartrate 5 mg 10/25/16 21:00 10/26/16 08:29 Lopressor Injection - IVPUSH 5 mg Q6H-IV [facility] Administration Metoprolol Tartrate 50 mg 10/25/16 22:00 10/26/16 05:42 Lopressor - PO Not Given TID [facility]IL[facility] Mirtazapine 15 mg 10/26/16 10:00 10/26/16 12:16 Remeron - NGT 15 mg DAILY [facility] Administration Ranitidine HCl 150 mg 10/25/16 22:00 10/26/16 12:15 Zantac Oral Solution - NGT 150 mg BID [facility] Administration Scopolamine HBr 1 patch 10/26/16 19:15 Transderm-Scop - TD Q72H [facility] ASSESSMENT/PLAN: This is a 56 yr old F with PMH ALS, chronic hypercapnic resp failure, HTN, HLD, hyperthyroidism, goiter, intubated to ED via EMS due to resp arrest. In ED, pt had cardiac arrest (V tach) for 5 min, was resuscitated and stabilized, admitted to ICU. # Acute on chronic respiratory failure secondary to ALS -Trach completed 10/24/16 -Pt for PEG placement, left message with GI office, will F/u -NG tube placed for feeding, confirmed on CXR -Continue solumedrol 40mg IVPB BID, duonebs 1 amp QIDR -Palliative on board # Paroxysmal afib -EKG: afib with RVR, marked ST abnormality, possible inferolateral subendocardial injury -Continue for rate control: -Metoprolol Tartate 50mg PO TID -Metoprolol Tartate 5mg IVP q6h -Cardizem drip 125mg -Cardiazem 10mg IVP q4h -Digoxin 0.125 mg PO daily -Digoxin 0.25 mg IVP -Continue Eliquis 5mg PO BID for anticoagulation -Will continue to monitor #Possible atelectasis -CXR: opacification of L hemithorax with L mediastinal shift -pt clinically improved, CTA BL, no rhonchi, wheezes or crackles -Will f/u with additional CXR if condition does not improve #Hyperthyroidism -Continue Methimazole 10 mg via NGT #Major Depressive Disorder -Continue Remeron 15mg via NGT # s/p Cardiac arrest in ED possibly secondary to hypoxia -Troponins negative x2 -Echo: regional wall motion abnormalities can't be ruled out. When compared to Echo 10/10/16: no wall motion abnormalities #subtherapeutic INR- resolved # Diarrhea-resolved # Hypophosphatemia-resolved # Lactic acidosis secondary to cardiac arrest-resolved # Hypokalemia-resolved # Hypernatremia-resolved # Anxiety-resolved DVT prophylaxis SCD's On Eliquis 5mg BID Stress ulcer prophylaxis -Continue Zantac 150 mg NGT BID F/E/N IV NS 42 mls/hr Monitor electrolytes NGTube Dispo [facility] care facility Visit type - Emergency Visit Emergency Visit: No - New Patient This patient is new to me today: No - Critical Care Critical Care patient: Yes Total Critical Care Time (in minutes): 32 Critical Care Statement: The care of this patient involved high complexity decision making to prevent further life threatening deterioration of the patient 's condition and/or to evalute & treat vital organ system(s) failure or risk of failure.
--- NOTE | 2016-10-26 14:23 | PN ---
Physical Exam: SUBJECTIVE: 56 year old female w/ pmh ALS, chronic respiratory failure, afib, hyperthyroidism off vent s/p cardiac arrest in the ICU for worsening respiratory function. Patient is difficult to communicate with due to ALS status , but is able to answer questions and respond to commands. Family is frequently visiting her and they are able to answer questions. OBJECTIVE: Vital Signs Period Temp Pulse Resp BP Sys/Hatch Pulse Ox Last 24 Hr 97.5 F-98.9 F 73-148 14-21 130-164/83-99 98-100 GENERAL: The patient is awake, alert, in no acute distress HEAD: Normal with no signs of trauma. EYES: PERRL, extraocular movements intact, sclera anicteric, conjunctiva clear. No ptosis. ENT: Ears normal, nares patent, oropharynx clear without exudates, moist mucous membranes. NGT inserted NECK: Trachea midline, surgical tracheostomy noted, full range of motion, supple. LUNGS: Breath sounds equal, patient breathing on trach HEART: regular rate and rhythm S1, S2 without murmur, rub or gallop. ABDOMEN: Soft, nontender, nondistended, normoactive bowel sounds, no guarding, no rebound, no hepatosplenomegaly, no masses. EXTREMITIES: 2+ pulses, warm, well-perfused, no edema. NEUROLOGICAL: Cranial nerves not able to be assessed, pt has b/l weakness in both upper and lower extremities, 3/5 muscle strength in b/l upper extremities, can grasp with b/l hands, can move toes SKIN: Warm, dry, normal turgor, no rashes or lesions noted Laboratory Results - last 24 hr 10/25/16 10/25/16 10/26/16 16:34 21:48 05:10 WBC 17.9 H RBC 3.80 Hgb 11.3 D Hct 35.0 D MCV 92.1 MCH 29.7 MCHC 32.2 RDW 14.7 Plt Count 381 D MPV 10.4 Neutrophils % 95.2 H Lymphocytes % 2.8 L Monocytes % 1.8 L Eosinophils % 0.1 D Basophils % 0.1 Sodium Potassium Chloride Carbon Dioxide Anion Gap BUN Creatinine POC Glucometer 142.38063 148.61090 Random Glucose Calcium Phosphorus Magnesium 10/26/16 10/26/16 10/26/16 05:10 06:23 12:35 WBC RBC Hgb Hct MCV MCH MCHC RDW Plt Count MPV Neutrophils % Lymphocytes % Monocytes % Eosinophils % Basophils % Sodium 143 Potassium 3.9 Chloride 105 Carbon Dioxide 30 Anion Gap 8 BUN 33 H Creatinine 0.4 L POC Glucometer 157.18175 170.79749 Random Glucose 149 H Calcium 9.1 Phosphorus 3.6 Magnesium 2.7 H Active Medications Generic Name Dose Route Start Last Admin Trade Name Freq PRN Reason Stop Dose Admin Acetaminophen 650 mg 10/25/16 19:59 Tylenol - PO Q4H PRN FEVER OR PAIN Albuterol/Ipratropium 1 amp 10/26/16 00:00 10/26/16 11:05 Duoneb - NEB 1 amp QIDR SIL[facility]IA Administration Apixaban 5 mg 10/25/16 22:00 10/26/16 12:16 Eliquis - PO 5 mg BID [facility] Administration Chlorhexidine Gluconate 1 applic 10/25/16 22:00 10/25/16 21:38 Hibiclens For Decolonization - TP 1 applic HS [facility]IL[facility]IA Administration Chlorhexidine Gluconate 15 ml 10/25/16 22:00 10/26/16 09:21 Peridex - MM 15 ml BID SILVAI Administration Digoxin 0.25 mg 10/25/16 19:59 Lanoxin Injection - IVPUSH ONCE PRN TACHYCARDIA Digoxin 0.125 mg 10/26/16 10:00 10/26/16 12:15 Lanoxin - PO 0.125 mg DAILY [facility] Administration Diltiazem HCl 10 mg 10/25/16 19:59 10/26/16 11:11 Cardizem Injection - IVPUSH 10 mg Q4H PRN Administration TACHYCARDIA Hydromorphone HCl 1 mg 10/25/16 22:09 10/26/16 12:17 Dilaudid Injection - IVPUSH 1 mg Q6H PRN Administration PAIN Diltiazem HCl 125 mg/ Dextrose 125 mls @ 5 mls/hr 10/25/16 19:59 10/25/16 19:55 IVPB 5 mls/hr TITR SILVIA Administration Protocol 5 MG/HR Sodium Chloride 1,000 mls @ 42 mls/hr 10/25/16 19:59 10/26/16 11:45 Normal Saline - IV 42 mls/hr ASDIR S[facility]IA Administration Insulin Aspart 1 vial 10/25/16 22:00 10/26/16 13:27 Novolog Vial Sliding Scale - SQ Not Given ACHS [facility] Protocol Lidocaine HCl 1 applic 10/25/16 19:59 Xylocaine 2% Jelly TP Q4H PRN PAIN Methimazole 10 mg 10/26/16 10:00 10/26/16 12:16 Tapazole - NGT 10 mg DAILY [facility] Administration Methylprednisolone Sodium Succinate 40 mg 10/25/16 22:00 10/26/16 09:21 Solu-Medrol - IVPB 40 mg BID [facility] Administration Metoprolol Tartrate 5 mg 10/25/16 21:00 10/26/16 08:29 Lopressor Injection - IVPUSH 5 mg Q6H-IV [facility] Administration Metoprolol Tartrate 50 mg 10/25/16 22:00 10/26/16 05:42 Lopressor - PO Not Given TID SIL[facility]IA Mirtazapine 15 mg 10/26/16 10:00 10/26/16 12:16 Remeron - NGT 15 mg DAILY [facility] Administration Ranitidine HCl 150 mg 10/25/16 22:00 10/26/16 12:15 Zantac Oral Solution - NGT 150 mg BID [facility] Administration Scopolamine HBr 1 patch 10/26/16 19:15 Transderm-Scop - TD Q72H [facility] Imaging: US duplex LE (10/16): no evidence of DVT Echo: (10/18): mild mitral regurgitation, mild pulmonic valve regurgitation, pleural effusion present, CXR (10/23): Total opacification of L hemithorax with L mediastinal shift CXR (10/24): No change from CXR on 10/23 - total opacification of L hemithorax with L mediastinal shift CXR (10/25): no significant change from CXR on 10/24 CXR (10/26): NGT tip in the LUQ/stomach ASSESSMENT/PLAN: 56 year old female with chronic respiratory failure and worsening ALS, paroxysmal atrial fibrillation with rapid ventricular response s/p surgical tracheostomy on 10/24/16. Neuro: patient with ALS -frequent neurochecks -monitor respiratory function on trach -provide versed 2mg Q1 PRN for agitation Cardiovascular: patient has hx of hypertension and afib w/ rvr - received dose of amiodarone and digoxin 2 nights agoto control rate; rate has not jumped to > 120 since this administration -switch to metoprolol 50mg PO TID by NGT -continue cardizem 10mg IV push PRN afib -consider digoxin push if rate uncontrolled on cardizem -continue eloquis 5mg for afib -monitor BP, HR -AM labs Pulmonary: patient with poor respiratory function, s/p tracheostomy yesterday, breathing on vent, Doing well post-op, no complications -pt counseled on importance feeding tube for nutrition -CXR showed total opacification of L hemithorax w/ L mediastinal shift likely due to atelectasis/mucus plugging -ordered chest PT to clear mucus -attempt to remove mucus during surgical tracheostomy -AM CXR GI: ALS pt s/p trach consulted about possible PEG for nutrition -NGT is inserted, use for meds and feeds; NPO after midnight for possible PEG tube placement tomorrow -GI is on board, will likely do PEG tomorrow, need consent for Dr. Vidal Endocrine: pt with hx of hyperthyroidism -continue home methimazole FEN: -start glucerna feeds through NGT, hold at midnight Proph: -continue ranitidine Dispo: -continue to monitor in ICU Problem List - Problems (1) Respiratory failure requiring intubation Code(s): J96.90 - RESPIRATORY FAILURE, UNSP, UNSP W HYPOXIA OR HYPERCAPNIA (2) ALS (amyotrophic lateral sclerosis) Code(s): G12.21 - AMYOTROPHIC LATERAL SCLEROSIS Visit type - Emergency Visit Emergency Visit: No - New Patient This patient is new to me today: No - Critical Care Critical Care patient: Yes Total Critical Care Time (in minutes): 45 Critical Care Statement: The care of this patient involved high complexity decision making to prevent further life threatening deterioration of the patient 's condition and/or to evalute & treat vital organ system(s) failure or risk of failure.
[2016-10-26] MEDS ORDERED: METOPROLOL TARTRATE 5 MG/5 ML VIAL IVPUSH PRN (15:00)
--- NOTE | 2016-10-26 15:03 | PN ---
Teaching Attending Note Name of Resident: Manjula Delvalle ATTENDING PHYSICIAN STATEMENT I saw and evaluated the patient. I reviewed the resident's note and discussed the case with the resident. I agree with the resident's findings and plan as documented. SUBJECTIVE: Patient is awake, alert and appears comfortable. OBJECTIVE: Vital Signs Period Temp Pulse Resp BP Sys/Hatch Pulse Ox Last 24 Hr 97.5 F-98.9 F 73-148 14-21 130-164/83-99 98-100 HEART: Regular, tachycardic LUNGS: Clear ABDOMEN: Soft, non-distended, normal BS EXTREMITIES: No edema Current Medications Generic Name Dose Route Start Last Admin Trade Name Freq PRN Reason Stop Dose Admin Acetaminophen 650 mg 10/25/16 19:59 Tylenol - PO Q4H PRN FEVER OR PAIN Albuterol/Ipratropium 1 amp 10/26/16 00:00 10/26/16 11:05 Duoneb - NEB 1 amp QIDR [facility] Administration Apixaban 5 mg 10/25/16 22:00 10/26/16 12:16 Eliquis - PO 5 mg BID [facility] Administration Chlorhexidine Gluconate 1 applic 10/25/16 22:00 10/25/16 21:38 Hibiclens For Decolonization - TP 1 applic HS [facility] Administration Chlorhexidine Gluconate 15 ml 10/25/16 22:00 10/26/16 09:21 Peridex - MM 15 ml BID [facility] Administration Digoxin 0.25 mg 10/25/16 19:59 Lanoxin Injection - IVPUSH ONCE PRN TACHYCARDIA Digoxin 0.125 mg 10/26/16 10:00 10/26/16 12:15 Lanoxin - PO 0.125 mg DAILY [facility] Administration Diltiazem HCl 10 mg 10/25/16 19:59 10/26/16 11:11 Cardizem Injection - IVPUSH 10 mg Q4H PRN Administration TACHYCARDIA Hydromorphone HCl 1 mg 10/25/16 22:09 10/26/16 12:17 Dilaudid Injection - IVPUSH 1 mg Q6H PRN Administration PAIN Diltiazem HCl 125 mg/ Dextrose 125 mls @ 5 mls/hr 10/25/16 19:59 10/25/16 19:55 IVPB 5 mls/hr TITR [facility] Administration Protocol 5 MG/HR Sodium Chloride 1,000 mls @ 42 mls/hr 10/25/16 19:59 10/26/16 11:45 Normal Saline - IV 42 mls/hr ASDIR [facility] Administration Insulin Aspart 1 vial 10/25/16 22:00 10/26/16 13:27 Novolog Vial Sliding Scale - SQ Not Given ACHS [facility] Protocol Lidocaine HCl 1 applic 10/25/16 19:59 Xylocaine 2% Jelly TP Q4H PRN PAIN Methimazole 10 mg 10/26/16 10:00 10/26/16 12:16 Tapazole - NGT 10 mg DAILY [facility] Administration Methylprednisolone Sodium Succinate 40 mg 10/25/16 22:00 10/26/16 09:21 Solu-Medrol - IVPB 40 mg BID [facility] Administration Metoprolol Tartrate 50 mg 10/25/16 22:00 10/26/16 14:58 Lopressor - PO Not Given TID [facility] Metoprolol Tartrate 5 mg 10/26/16 15:00 Lopressor Injection - IVPUSH Q6H-IV PRN ANXIETY Mirtazapine 15 mg 10/26/16 10:00 10/26/16 12:16 Remeron - NGT 15 mg DAILY [facility] Administration Ranitidine HCl 150 mg 10/25/16 22:00 10/26/16 12:15 Zantac Oral Solution - NGT 150 mg BID [facility] Administration Scopolamine HBr 1 patch 10/26/16 19:15 Transderm-Scop - TD Q72H [facility] ASSESSMENT AND PLAN: This is a 56-year-old woman with a history of ALS, chronic hypercapnic respiratory failure, HTN, hyperthyroidism, atrial fib, hyperlipidemia who was brought in to the ER after being intubated by EMS for acute respiratory distress and subsequently had cardiac arrest in the ER. 1. s/p cardiac arrest, likely secondary to hypoxia vs electrolyte abnormality 2. Acute on chronic hypoxic and hypercapnic respiratory failure - Continue SoluMedrol, DuoNeb - s/p tracheostomy 10/25 - Wean vent as per pulmonary/critical care - Palliative care following - Possible transfer to [facility] 3. Lactic acidemia - Resolved 4. Hypokalemia - Improved 5. Hypophosphatemia - Improved 6. Hyperthyroidism - Continue Tapazole 7. HTN - Continue Cardizem, Lopressor 8. Paroxysmal atrial fibrillation/flutter with RVR - TSH is OK - Continue Lopressor, Digoxin, Cardizem IV drip, Eliquis - Wean Cardizem IV drip as tolerated 9. Hyperlipidemia 10. Depression - Continue Remeron 11. ALS 12. DVT prophylaxis - On Eliquis 13. Stress ulcer prophylaxis - On Zantac 14. Nutrition - NGT inserted for Glucerna feeds - Plan for PEG
[2016-10-26] MEDS: SCOPOLAMINE HYDROBROMIDE 1 PATCH PATCH.TD72 TD SCH (19:23)
[2016-10-26] MEDS: DILTIAZEM INJECTION 125 MG in DEXTROSE 5%-WATER - 100 ML IVPB SCH (19:55)
[2016-10-26] MEDS: CHLORHEXIDINE GLUCONATE 4% CLEANSER FOR DECOLONIZATION TP SCH (21:10)
[2016-10-27] MEDS: ALBUTEROL SO4 2.5/IPRATROPIUM 0.5 INH SOL 3 ML VIAL.NEB. NEB SCH ×5 (06:00→23:57)
[2016-10-27] MEDS: HYDROmorphone HCL CARPU-JECT 1 MG/1 ML DISP.SYRIN IVPUSH PRN ×2 (06:00→20:32)
[2016-10-27 06:21] LABS: MCH 30.1 pg (25.7-33.7); MCHC 33.4 g/dl (32.0-36.0); MEAN CELL VOLUME 90.3 fl (80-96); MEAN PLT VOLUME 9.9 fl (7.5-11.1); PLATELET COUNT 402 K/MM3 (134-434); RDW 15.1 % (11.6-15.6); WHITE BLOOD COUNT 17.7 K/mm3 (4.0-10.0)
[2016-10-27] MEDS: METOPROLOL TARTRATE 50 MG TABLET (FP) PO SCH ×3 (06:22→21:34)
[2016-10-27] MEDS: INSULIN SLIDING SCALE (NOVOLOG) 1 VIAL SQ SCH ×4 (06:22→21:45)
[2016-10-27] MEDS ORDERED: dilTIAZem HCL 125 MG/25 ML - 5 ML VIAL ONE (06:43)
[2016-10-27 06:49] LABS: ANION GAP 9 (8-16); CALCIUM 8.6 mg/dL (8.5-10.1); CO2 29 mmol/L (21-32); GLUCOSE,RANDOM 153 mg/dL (74-106)
[2016-10-27 06:50] LABS: CREATININE 0.3 mg/dL (0.55-1.02)
--- NOTE | 2016-10-27 07:12 | PN ---
Progress Note, Physician Chief Complaint: ID Stable on the vent Awaiting transfer telemetry Off antibiotics Solumedrol 40mg q12H - Current Medication List Current Medications: Active Medications Acetaminophen (Tylenol -) 650 mg PO Q4H PRN PRN Reason: FEVER OR PAIN Albuterol/Ipratropium (Duoneb -) 1 amp NEB QIDR [facility] Last Admin: 10/27/16 06:00 Dose: 1 amp Apixaban (Eliquis -) 5 mg PO BID [facility] Last Admin: 10/26/16 21:09 Dose: 5 mg Chlorhexidine Gluconate (Hibiclens For Decolonization -) 1 applic TP HS [facility] Last Admin: 10/26/16 21:10 Dose: 1 applic Chlorhexidine Gluconate (Peridex -) 15 ml MM BID [facility] Last Admin: 10/26/16 21:10 Dose: 15 ml Digoxin (Lanoxin Injection -) 0.25 mg IVPUSH ONCE PRN PRN Reason: TACHYCARDIA Digoxin (Lanoxin -) 0.125 mg PO DAILY [facility] Last Admin: 10/26/16 12:15 Dose: 0.125 mg Diltiazem HCl (Cardizem Injection -) 10 mg IVPUSH Q4H PRN PRN Reason: TACHYCARDIA Last Admin: 10/26/16 11:11 Dose: 10 mg Hydromorphone HCl (Dilaudid Injection -) 1 mg IVPUSH Q6H PRN PRN Reason: PAIN Last Admin: 10/27/16 06:00 Dose: 1 mg Diltiazem HCl 125 mg/ Dextrose 125 mls @ 5 mls/hr IVPB TITR [facility]; 5 MG/HR PRN Reason: Protocol Last Admin: 10/26/16 19:55 Dose: 15 mls/hr Sodium Chloride (Normal Saline -) 1,000 mls @ 42 mls/hr IV ASDIR [facility] Last Admin: 10/26/16 20:10 Dose: 42 mls/hr Insulin Aspart (Novolog Vial Sliding Scale -) 1 vial SQ ACHS [facility] PRN Reason: Protocol Last Admin: 10/27/16 06:22 Dose: Not Given Lidocaine HCl (Xylocaine 2% Jelly) 1 applic TP Q4H PRN PRN Reason: PAIN Methimazole (Tapazole -) 10 mg NGT DAILY [facility] Last Admin: 10/26/16 12:16 Dose: 10 mg Methylprednisolone Sodium Succinate (Solu-Medrol -) 40 mg IVPB BID [facility] Last Admin: 10/26/16 21:10 Dose: 40 mg Metoprolol Tartrate (Lopressor -) 50 mg PO TID [facility] Last Admin: 10/27/16 06:22 Dose: 50 mg Metoprolol Tartrate (Lopressor Injection -) 5 mg IVPUSH Q6H-IV PRN PRN Reason: ANXIETY Last Admin: 10/26/16 19:21 Dose: 5 mg Mirtazapine (Remeron -) 15 mg NGT DAILY [facility] Last Admin: 10/26/16 12:16 Dose: 15 mg Ranitidine HCl (Zantac Oral Solution -) 150 mg NGT BID [facility] Last Admin: 10/26/16 21:09 Dose: 150 mg Scopolamine HBr (Transderm-Scop -) 1 patch TD Q72H [facility] Last Admin: 10/26/16 19:23 Dose: 1 patch - Objective Vital Signs: Vital Signs Temperature 99.6 F 10/27/16 06:00 Pulse Rate 87 10/27/16 06:00 Respiratory Rate 18 10/27/16 06:25 Blood Pressure 164/93 10/27/16 06:00 O2 Sat by Pulse Oximetry (%) 100 10/26/16 21:00 Constitutional: Yes: No Distress Neck: Yes: Other (Tracheostomy) Respiratory: Yes: WNL, Regular, CTA Bilaterally. No: Rales Gastrointestinal: Yes: WNL, Normal Bowel Sounds, Soft. No: Tenderness, Tenderness, Rebound Extremities: No: Cold, Cool, Cyanosis Edema: No Labs: CBC, BMP 10/27/16 05:15 10/27/16 05:15 INR, PTT INR 1.75 (0.82-1.09) H 10/24/16 09:30 Problem List - Problems (1) ALS (amyotrophic lateral sclerosis) Code(s): G12.21 - AMYOTROPHIC LATERAL SCLEROSIS (2) Cardiac arrest Code(s): I46.9 - CARDIAC ARREST, CAUSE UNSPECIFIED (3) Respiratory failure requiring intubation Code(s): J96.90 - RESPIRATORY FAILURE, UNSP, UNSP W HYPOXIA OR HYPERCAPNIA (4) Fever Code(s): R50.9 - FEVER, UNSPECIFIED Assessment/Plan Microbiology 10/23/16 11:25 Sputum - Endotrachea Suction/Ventilator Gram Stain - Final 10/23/16 11:25 Sputum - Endotrachea Suction/Ventilator Sputum Culture - Final Enterobacter Cloacae 10/23/16 09:57 Blood - Peripheral Venous Blood Culture - Preliminary NO GROWTH OBTAINED AFTER 72 HOURS, INCUBATION TO CONTINUE FOR 2 DAYS. 10/23/16 09:23 Blood - Peripheral Venous Blood Culture - Preliminary NO GROWTH OBTAINED AFTER 72 HOURS, INCUBATION TO CONTINUE FOR 2 DAYS. Laboratory Tests 10/27/16 10/27/16 05:15 05:15 WBC 17.7 H Hgb 10.8 Plt Count 402 BUN 31 H Creatinine 0.3 L D Assessment Ventilatory failure ALS S/P cardiac arrest Tracheostomy Opacified left hemithorax requiring bronchoscopy Atrial fibrillation Plan For PEG placement Off antibiotics Transfer pending Cardiology f/u Margot LOVELACE
--- NOTE | 2016-10-27 08:17 | EKG ---
Test Reason : Blood Pressure : / mmHG Vent. Rate : 097 BPM Atrial Rate : 234 BPM P-R Int : 000 ms QRS Dur : 072 ms QT Int : 304 ms P-R-T Axes : 000 039 246 degrees QTc Int : 386 ms POOR DATA QUALITY, INTERPRETATION MAY BE ADVERSELY AFFECTED ATRIAL FIBRILLATION NONSPECIFIC ST AND T WAVE ABNORMALITY ABNORMAL ECG WHEN COMPARED WITH ECG OF 26-OCT-2016 08:24, VENT. RATE HAS DECREASED BY [address] LESS DEPRESSED IN LATERAL LEADS T WAVE INVERSION NO LONGER EVIDENT IN ANTERIOR LEADS Confirmed by GABRIELLE FARIAS MD ([id number]) on 10/27/2016 8:17:32 AM Referred By: SPENCER FOX Confirmed By:GABRIELLE FARIAS MD
--- NOTE | 2016-10-27 09:24 | PN ---
Progress Note, Physician - Current Medication List Current Medications: Active Medications Acetaminophen (Tylenol -) 650 mg PO Q4H PRN PRN Reason: FEVER OR PAIN Albuterol/Ipratropium (Duoneb -) 1 amp NEB QIDR [facility] Last Admin: 10/27/16 06:00 Dose: 1 amp Apixaban (Eliquis -) 5 mg PO BID [facility] Last Admin: 10/26/16 21:09 Dose: 5 mg Chlorhexidine Gluconate (Hibiclens For Decolonization -) 1 applic TP HS [facility] Last Admin: 10/26/16 21:10 Dose: 1 applic Chlorhexidine Gluconate (Peridex -) 15 ml MM BID [facility] Last Admin: 10/26/16 21:10 Dose: 15 ml Digoxin (Lanoxin Injection -) 0.25 mg IVPUSH ONCE PRN PRN Reason: TACHYCARDIA Digoxin (Lanoxin -) 0.125 mg PO DAILY [facility] Last Admin: 10/26/16 12:15 Dose: 0.125 mg Diltiazem HCl (Cardizem Injection -) 10 mg IVPUSH Q4H PRN PRN Reason: TACHYCARDIA Last Admin: 10/26/16 11:11 Dose: 10 mg Hydromorphone HCl (Dilaudid Injection -) 1 mg IVPUSH Q6H PRN PRN Reason: PAIN Last Admin: 10/27/16 06:00 Dose: 1 mg Diltiazem HCl 125 mg/ Dextrose 125 mls @ 5 mls/hr IVPB TITR [facility]; 5 MG/HR PRN Reason: Protocol Last Admin: 10/26/16 19:55 Dose: 15 mls/hr Sodium Chloride (Normal Saline -) 1,000 mls @ 42 mls/hr IV ASDIR [facility] Last Admin: 10/26/16 20:10 Dose: 42 mls/hr Insulin Aspart (Novolog Vial Sliding Scale -) 1 vial SQ ACHS [facility] PRN Reason: Protocol Last Admin: 10/27/16 06:22 Dose: Not Given Lidocaine HCl (Xylocaine 2% Jelly) 1 applic TP Q4H PRN PRN Reason: PAIN Methimazole (Tapazole -) 10 mg NGT DAILY [facility] Last Admin: 10/26/16 12:16 Dose: 10 mg Methylprednisolone Sodium Succinate (Solu-Medrol -) 40 mg IVPB BID [facility] Last Admin: 10/26/16 21:10 Dose: 40 mg Metoprolol Tartrate (Lopressor -) 50 mg PO TID [facility] Last Admin: 10/27/16 06:22 Dose: 50 mg Metoprolol Tartrate (Lopressor Injection -) 5 mg IVPUSH Q6H-IV PRN PRN Reason: ANXIETY Last Admin: 10/26/16 19:21 Dose: 5 mg Mirtazapine (Remeron -) 15 mg NGT DAILY [facility] Last Admin: 10/26/16 12:16 Dose: 15 mg Ranitidine HCl (Zantac Oral Solution -) 150 mg NGT BID [facility] Last Admin: 10/26/16 21:09 Dose: 150 mg Scopolamine HBr (Transderm-Scop -) 1 patch TD Q72H [facility] Last Admin: 10/26/16 19:23 Dose: 1 patch - Objective Vital Signs: Vital Signs Temperature 99.6 F 10/27/16 06:00 Pulse Rate 72 10/27/16 08:00 Respiratory Rate 16 10/27/16 08:00 Blood Pressure 132/79 10/27/16 08:00 O2 Sat by Pulse Oximetry (%) 100 10/27/16 08:00 Eyes: Yes: WNL, Conjunctiva Clear, EOM Intact HENT: Yes: WNL, Atraumatic, Normocephalic Neck: Yes: WNL, Supple, Trachea Midline Cardiovascular: Yes: WNL, Regular Rate and Rhythm Respiratory: Yes: Diminished, Mechanically Ventilated Gastrointestinal: Yes: WNL, Normal Bowel Sounds Genitourinary: Yes: WNL Musculoskeletal: Yes: WNL Extremities: Yes: WNL Edema: No Integumentary: Yes: WNL ...Motor Strength: WNL Psychiatric: Yes: WNL Labs: CBC, BMP 10/27/16 05:15 10/27/16 05:15 INR, PTT INR 1.75 (0.82-1.09) H 10/24/16 09:30 Assessment/Plan Advanced ALS Acute respiratory failure, probably multifactorial due to PNA and advanced ALS PAFib with RVR S/P Cardiopulmonary arrest in setting of acute respiratory failure, with recent echo normal LVEF and negative TnIs this admission REC: 1. PAFib with episodes of RVR; periods of Aflutter -wean cardizem gtt as tolerates -cont lopressor as BP tolerates, po cardizem was stopped -start digoxin PO, BP is lowish- will not tolerate additional BBlocker -Cont Eliquis 2. Acute respiratory failure: -multifactorial, likely due to advanced ALS -off ABx -s/p trach 3.Cardiopulmonary arrest:-Not a primary cardiac arrest -in setting of acute respiratory failure -LV function normal on echo -cardiac enzymes wnl -no additional cardiac work up needed at this point cc time 35 min
--- NOTE | 2016-10-27 09:48 | PN ---
Physical Exam: SUBJECTIVE: Patient seen and examined. She appears comfortable. She denies pain. OBJECTIVE: Vital Signs Period Temp Pulse Resp BP Sys/Hatch Pulse Ox Last 24 Hr 98 F-99.9 F 71-160 14-25 132-164/79-100 98-100 GENERAL: The patient is awake, alert, in no acute distress. On vent via trach. LUNGS: Breath sounds equal, clear to auscultation bilaterally, no wheezes, no crackles, no accessory muscle use. HEART: Regular rate and rhythm, S1, S2 without murmur, rub or gallop. ABDOMEN: Soft, nontender, nondistended, normoactive bowel sounds, no guarding, no rebound, no hepatosplenomegaly, no masses. EXTREMITIES: 2+ pulses, warm, well-perfused, no edema. Laboratory Results - last 24 hr 10/26/16 10/26/16 10/26/16 12:35 16:30 22:07 WBC RBC Hgb Hct MCV MCH MCHC RDW Plt Count MPV Sodium Potassium Chloride Carbon Dioxide Anion Gap BUN Creatinine POC Glucometer 170.39771 162.93688 165.73422 Random Glucose Calcium 10/27/16 10/27/16 10/27/16 05:15 05:15 05:26 WBC 17.7 H RBC 3.60 Hgb 10.8 Hct 32.5 MCV 90.3 MCH 30.1 MCHC 33.4 RDW 15.1 Plt Count 402 MPV 9.9 Sodium 148 H Potassium 3.5 Chloride 110 H Carbon Dioxide 29 Anion Gap 9 BUN 31 H Creatinine 0.3 L D POC Glucometer 171.60706 Random Glucose 153 H Calcium 8.6 Active Medications Generic Name Dose Route Start Last Admin Trade Name Freq PRN Reason Stop Dose Admin Acetaminophen 650 mg 10/25/16 19:59 Tylenol - PO Q4H PRN FEVER OR PAIN Albuterol/Ipratropium 1 amp 10/26/16 00:00 10/27/16 06:00 Duoneb - NEB 1 amp QIDR [facility] Administration Apixaban 5 mg 10/25/16 22:00 10/26/16 21:09 Eliquis - PO 5 mg BID [facility] Administration Chlorhexidine Gluconate 1 applic 10/25/16 22:00 10/26/16 21:10 Hibiclens For Decolonization - TP 1 applic HS [facility] Administration Chlorhexidine Gluconate 15 ml 10/25/16 22:00 10/26/16 21:10 Peridex - MM 15 ml BID [facility] Administration Digoxin 0.25 mg 10/25/16 19:59 Lanoxin Injection - IVPUSH ONCE PRN TACHYCARDIA Digoxin 0.125 mg 10/26/16 10:00 10/26/16 12:15 Lanoxin - PO 0.125 mg DAILY [facility] Administration Diltiazem HCl 10 mg 10/25/16 19:59 10/26/16 11:11 Cardizem Injection - IVPUSH 10 mg Q4H PRN Administration TACHYCARDIA Hydromorphone HCl 1 mg 10/25/16 22:09 10/27/16 06:00 Dilaudid Injection - IVPUSH 1 mg Q6H PRN Administration PAIN Diltiazem HCl 125 mg/ Dextrose 125 mls @ 5 mls/hr 10/25/16 19:59 10/26/16 19:55 IVPB 15 mls/hr TITR [facility] Administration Protocol 5 MG/HR Sodium Chloride 1,000 mls @ 42 mls/hr 10/25/16 19:59 10/26/16 20:10 Normal Saline - IV 42 mls/hr ASDIR [facility] Administration Insulin Aspart 1 vial 10/25/16 22:00 10/27/16 06:22 Novolog Vial Sliding Scale - SQ Not Given ACHS [facility] Protocol Lidocaine HCl 1 applic 10/25/16 19:59 Xylocaine 2% Jelly TP Q4H PRN PAIN Methimazole 10 mg 10/26/16 10:00 10/26/16 12:16 Tapazole - NGT 10 mg DAILY [facility] Administration Methylprednisolone Sodium Succinate 40 mg 10/25/16 22:00 10/26/16 21:10 Solu-Medrol - IVPB 40 mg BID [facility] Administration Metoprolol Tartrate 50 mg 10/25/16 22:00 10/27/16 06:22 Lopressor - PO 50 mg TID [facility] Administration Metoprolol Tartrate 5 mg 10/26/16 15:00 10/26/16 19:21 Lopressor Injection - IVPUSH 5 mg Q6H-IV PRN Administration ANXIETY Mirtazapine 15 mg 10/26/16 10:00 10/26/16 12:16 Remeron - NGT 15 mg DAILY [facility] Administration Ranitidine HCl 150 mg 10/25/16 22:00 08/04/17 21:09 Zantac Oral Solution - NGT 150 mg BID [facility] Administration Scopolamine HBr 1 patch 10/26/16 19:15 10/26/16 19:23 Transderm-Scop - TD 1 patch Q72H [facility] Administration ASSESSMENT/PLAN: This is a 56-year-old woman with a history of ALS, chronic hypercapnic respiratory failure, HTN, hyperthyroidism, atrial fib, hyperlipidemia who was brought in to the ER after being intubated by EMS for acute respiratory distress and subsequently had cardiac arrest in the ER. 1. s/p cardiac arrest, secondary to hypoxia vs electrolyte abnormality 2. Acute on chronic hypoxic and hypercapnic respiratory failure - Continue SoluMedrol, DuoNeb - s/p tracheostomy 10/25 - Wean vent as per pulmonary/critical care - Palliative care following - Possible transfer to [facility] 3. Lactic acidemia - Resolved 4. Hypokalemia - Improved 5. Hypophosphatemia - Improved 6. Hyperthyroidism - Continue Tapazole 7. HTN - Continue Cardizem, Lopressor 8. Paroxysmal atrial fibrillation/flutter with RVR - Currently in sinus rhythm - TSH is OK - Continue Lopressor, Digoxin, Cardizem IV drip (current rate 15 mg/hr), Eliquis 9. Hyperlipidemia 10. Hyperglycemia, possible type 2 DM - Continue Novolog sliding scale - Check HgbA1c 11. Depression - Continue Remeron 12. ALS 13. DVT prophylaxis - On Eliquis 14. Stress ulcer prophylaxis - On Zantac 15. Nutrition - Continue Glucerna NGT feeds - Plan for PEG Visit type - Emergency Visit Emergency Visit: Yes ED Registration Date: 10/15/16 Care time: The patient presented to the Emergency Department on the above date and was hospitalized for further evaluation of their emergent condition. - New Patient This patient is new to me today: No - Critical Care Critical Care patient: No - Discharge Referral Referred to [facility] Med [facility] No
[2016-10-27] MEDS ORDERED: PT OWN MED DRAWER 7, Y5N ONE (10:04)
[2016-10-27] MEDS: APIXABAN 5 MG TABLET PO SCH (10:07)
[2016-10-27] MEDS: methylPREDNISolone NA SUCC 40 MG/1 ML VIAL IVPB SCH ×2 (10:11→21:34)
[2016-10-27] MEDS: DIGOXIN 0.125 MG TABLET (FP) PO SCH (10:11)
[2016-10-27] MEDS: MIRTAZAPINE 15 MG TABLET (FP) NGT SCH (10:12)
[2016-10-27] MEDS: CHLORHEXIDINE GLUCONATE 0.12% 15ML CUP MM SCH ×2 (10:12→21:34)
[2016-10-27] MEDS: METHIMAZOLE 10 MG TABLET (FP) NGT SCH (10:13)
[2016-10-27] MEDS: RANITIDINE HCL 150 MG/10 ML UNIT-DOSE CUP NGT SCH ×2 (10:13→21:34)
[2016-10-27] MEDS: SODIUM CHLORIDE 1,000 ML IV SCH ×2 (10:28→20:32)
--- NOTE | 2016-10-27 10:48 | PN ---
Progress Note (short form) - Note Progress Note: SUBJECTIVE: Patient seen and examined in the ICU. -no acute events overnight -restarted on steroids, not wheezing on my exam, unclear utility -has NG access now, awaiting decision on PEG Vital Signs Temp 99.6 F 10/27/16 06:00 Pulse 84 10/27/16 10:11 Resp 15 10/27/16 09:44 BP 132/79 10/27/16 08:00 Pulse Ox 100 10/27/16 08:00 Intake & Output 10/26/16 10/26/16 10/27/16 11:59 23:59 11:59 Intake Total 329 1079 539 Output Total 250 700 500 Balance 79 379 39 Weight 74.871 kg 75.381 kg Intake: IV 329 939 399 Cardizem Injection - 125 35 225 105 mg In D5w - 100 ml @ 5 MG /HR 5 mls/hr IVPB TITR [facility] Rx#:[id number] Normal Saline - 1,000 ml 294 714 294 @ 42 mls/hr IV ASDIR [facility] Rx#:[id number] Tube Feeding 70 70 Tube Irrigant 70 70 Output: Urine 250 700 500 Carrillo 250 700 500 Other: Voiding Method Indwelling Catheter Indwelling Catheter Indwelling Catheter Bowel Movement Yes Yes # Bowel Movements 2 1 Weight Measurement Method Built in [facility] Built in [facility] Active Medications Acetaminophen (Tylenol -) 650 mg PO Q4H PRN PRN Reason: FEVER OR PAIN Albuterol/Ipratropium (Duoneb -) 1 amp NEB QIDR [facility] Last Admin: 10/27/16 06:00 Dose: 1 amp Apixaban (Eliquis -) 5 mg PO BID [facility] Last Admin: 10/27/16 10:07 Dose: 5 mg Chlorhexidine Gluconate (Hibiclens For Decolonization -) 1 applic TP HS [facility] Last Admin: 10/26/16 21:10 Dose: 1 applic Chlorhexidine Gluconate (Peridex -) 15 ml MM BID [facility] Last Admin: 10/27/16 10:12 Dose: 15 ml Digoxin (Lanoxin -) 0.125 mg PO DAILY [facility] Last Admin: 10/27/16 10:11 Dose: 0.125 mg Diltiazem HCl (Cardizem Injection -) 10 mg IVPUSH Q4H PRN PRN Reason: TACHYCARDIA Last Admin: 10/26/16 11:11 Dose: 10 mg Hydromorphone HCl (Dilaudid Injection -) 1 mg IVPUSH Q6H PRN PRN Reason: PAIN Last Admin: 10/27/16 06:00 Dose: 1 mg Diltiazem HCl 125 mg/ Dextrose 125 mls @ 5 mls/hr IVPB TITR [facility]; 5 MG/HR PRN Reason: Protocol Last Admin: 10/26/16 19:55 Dose: 15 mls/hr Sodium Chloride (Normal Saline -) 1,000 mls @ 42 mls/hr IV ASDIR [facility] Last Admin: 10/27/16 10:28 Dose: 42 mls/hr Insulin Aspart (Novolog Vial Sliding Scale -) 1 vial SQ ACHS [facility] PRN Reason: Protocol Last Admin: 10/27/16 06:22 Dose: Not Given Lidocaine HCl (Xylocaine 2% Jelly) 1 applic TP Q4H PRN PRN Reason: PAIN Methimazole (Tapazole -) 10 mg NGT DAILY [facility] Last Admin: 10/27/16 10:13 Dose: 10 mg Methylprednisolone Sodium Succinate (Solu-Medrol -) 40 mg IVPB BID [facility] Last Admin: 10/27/16 10:11 Dose: 40 mg Metoprolol Tartrate (Lopressor -) 50 mg PO TID [facility] Last Admin: 10/27/16 06:22 Dose: 50 mg Metoprolol Tartrate (Lopressor Injection -) 5 mg IVPUSH Q6H-IV PRN PRN Reason: ANXIETY Last Admin: 10/26/16 19:21 Dose: 5 mg Mirtazapine (Remeron -) 15 mg NGT DAILY [facility] Last Admin: 10/27/16 10:12 Dose: 15 mg Ranitidine HCl (Zantac Oral Solution -) 150 mg NGT BID [facility] Last Admin: 10/27/16 10:13 Dose: 150 mg Scopolamine HBr (Transderm-Scop -) 1 patch TD Q72H [facility] Last Admin: 10/26/16 19:23 Dose: 1 patch Gen: Trached, vented, awake and responsive Heart: RRR Lung: decreased breath sounds at the bases Abd: soft, nontender Ext: dependent edema Laboratory Results - last 24 hr 10/25/16 10/25/16 10/25/16 12:25 16:34 21:48 WBC RBC Hgb Hct MCV MCH MCHC RDW Plt Count MPV Neutrophils % Lymphocytes % Monocytes % Eosinophils % Basophils % Sodium Potassium Chloride Carbon Dioxide Anion Gap BUN Creatinine POC Glucometer 137.11521 142.38073 148.83180 Random Glucose Calcium Phosphorus Magnesium 10/26/16 10/26/16 10/26/16 05:10 05:10 06:23 WBC 17.9 H RBC 3.80 Hgb 11.3 D Hct 35.0 D MCV 92.1 MCH 29.7 MCHC 32.2 RDW 14.7 Plt Count 381 D MPV 10.4 Neutrophils % 95.2 H Lymphocytes % 2.8 L Monocytes % 1.8 L Eosinophils % 0.1 D Basophils % 0.1 Sodium 143 Potassium 3.9 Chloride 105 Carbon Dioxide 30 Anion Gap 8 BUN 33 H Creatinine 0.4 L POC Glucometer 157.96302 Random Glucose 149 H Calcium 9.1 Phosphorus 3.6 Magnesium 2.7 H ASSESSMENT AND PLAN: S/P Trach due to failure to wean due to ALS Acute on Chronic Hypoxic and Hypercapneic Respiratory Failure s/p Cardiac Arrest likely from Respiratory Failure Pneumonia Sepsis Lactic Acidosis resolved Advanced ALS Paroxysmal Atrial Fibrillation with RVR HTN Hyperthyroidism - Off ABX per ID - rate control with metoprolol / dig, cardizem gtt , will transition to PO dilt after NGT/peg inserted - AC - enteral feeds - PS as tolerate, has progressive resp failure due to muscle weakness unlikely to wean - DVT/GI prophylaxis - Will need PEG for NH placement Antoine Radford ACNP [id number] 35min CCT.
--- NOTE | 2016-10-27 13:02 | CON.GI ---
Consult Consult Specialty:: GI Referred by:: Dr Kurtz Reason for Consultation:: PEG - History of Present Illness Chief Complaint: Inability to take po History of Present Illness: 56 F with progressive ALS, wheelchair bound. HTN, HLD brought buy ambulance with respiratory failure requiring intubation after trial of BIPAP failed. 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) Cardio/Vascular: Yes: HTN, Hyperlipdemia Pulmonary: Yes: Pneumonia Musculoskeletal: Yes: Other (ALS) Endocrine: Yes: Hyperthyroidism - Alcohol/Substance Use Hx Alcohol Use: No History of Substance Use: reports: None - Smoking History Smoking history: Unknown if ever smoked Have you smoked in the past 12 months: No Aproximately how many cigarettes per day: 0 - Social History ADL: Family Assistance History of Recent Travel: No Home Medications - Allergies Allergies/Adverse Reactions: Allergies Allergy/AdvReac Type Severity Reaction Status Date / Time No Known Allergies Allergy Verified 10/15/16 21:26 - Home Medications Home Medications: Ambulatory Orders Metoprolol Tartrate [Lopressor -] 50 mg PO BID tablet 10/12/16 Apixaban [Eliquis -] 5 mg PO DAILY 10/15/16 Methimazole 10 mg PO DAILY 10/15/16 Mirtazapine [Remeron -] 15 mg PO DAILY 10/15/16 Sennosides [Senna] 8.6 mg PO DAILY 10/15/16 Family Disease History - Family Disease History Family Disease History: Other: Son (3, healthy) Physical Exam-GI Vital Signs: Vital Signs Temperature 99.6 F 10/27/16 06:00 Pulse Rate 84 10/27/16 10:11 Respiratory Rate 15 10/27/16 09:44 Blood Pressure 132/79 10/27/16 08:00 O2 Sat by Pulse Oximetry (%) 100 10/27/16 08:00 Constitutional: Yes: Well Nourished, Calm Eyes: Yes: Conjunctiva Clear HENT: Yes: Normocephalic Neck: Yes: Supple Cardiovascular: Yes: Regular Rate and Rhythm Respiratory: Yes: Regular Gastrointestinal Inspection: Yes: WNL ...Auscultate: Yes: Normoactive Bowel Sounds ...Palpate: Yes: Soft. No: Tenderness ...Percussion: Yes: Dullness Neurological: Yes: Pre-Existing Deficit (ALS) Psychiatric: Yes: WNL Labs: CBC, BMP 10/27/16 05:15 10/27/16 05:15 INR, PTT INR 1.75 (0.82-1.09) H 10/24/16 09:30 Hepatic Panel Total Bilirubin 0.4 mg/dL (0.2-1.0) D 10/21/16 05:20 AST 11 U/L (15-37) L D 10/21/16 05:20 ALT 19 U/L (12-78) D 10/21/16 05:20 Alkaline Phosphatase 101 U/L (45-117) 10/21/16 05:20 Albumin 2.0 g/dl (3.4-5.0) L 10/21/16 05:20 Assessment/Plan PEG discussed with patient and family and all in agreement that PEG should be placed Will schedule for Mon AM Kevin stopped NPO after MN on Saturday
[2016-10-27] MEDS: dilTIAZem HCL 30 MG TABLET (FP) NGT SCH ×2 (13:05→21:34)
[2016-10-27] MEDS: CHLORHEXIDINE GLUCONATE 4% CLEANSER FOR DECOLONIZATION TP SCH (21:34)
[2016-10-28] MEDS: dilTIAZem HCL 30 MG TABLET (FP) NGT SCH ×3 (05:59→22:38)
[2016-10-28] MEDS: HYDROmorphone HCL CARPU-JECT 1 MG/1 ML DISP.SYRIN IVPUSH PRN (05:59)
[2016-10-28] MEDS: METOPROLOL TARTRATE 50 MG TABLET (FP) PO SCH ×3 (05:59→22:38)
[2016-10-28] MEDS: ALBUTEROL SO4 2.5/IPRATROPIUM 0.5 INH SOL 3 ML VIAL.NEB. NEB SCH ×4 (05:59→23:12)
[2016-10-28] MEDS: INSULIN SLIDING SCALE (NOVOLOG) 1 VIAL SQ SCH ×3 (06:00→22:42)
[2016-10-28 06:35] LABS: MCH 29.8 pg (25.7-33.7); MCHC 32.5 g/dl (32.0-36.0); MEAN CELL VOLUME 91.8 fl (80-96); MEAN PLT VOLUME 9.4 fl (7.5-11.1); NEUTROPHILS 95.5 % (42.8-82.8); PLATELET COUNT 383 K/MM3 (134-434); RDW 14.9 % (11.6-15.6)
--- NOTE | 2016-10-28 06:57 | PN ---
Progress Note, Physician Chief Complaint: ID No real change Remains afebrile vent dependent - Current Medication List Current Medications: Active Medications Acetaminophen (Tylenol -) 650 mg PO Q4H PRN PRN Reason: FEVER OR PAIN Albuterol/Ipratropium (Duoneb -) 1 amp NEB QIDR [facility] Last Admin: 10/28/16 05:59 Dose: 1 amp Chlorhexidine Gluconate (Hibiclens For Decolonization -) 1 applic TP HS [facility] Last Admin: 10/27/16 21:34 Dose: 1 applic Chlorhexidine Gluconate (Peridex -) 15 ml MM BID [facility] Last Admin: 10/27/16 21:34 Dose: 15 ml Digoxin (Lanoxin -) 0.125 mg PO DAILY [facility] Last Admin: 10/27/16 10:11 Dose: 0.125 mg Diltiazem HCl (Cardizem Injection -) 10 mg IVPUSH Q4H PRN PRN Reason: TACHYCARDIA Last Admin: 10/26/16 11:11 Dose: 10 mg Diltiazem HCl (Cardizem -) 30 mg NGT TID [facility] Last Admin: 10/28/16 05:59 Dose: 30 mg Hydromorphone HCl (Dilaudid Injection -) 1 mg IVPUSH Q6H PRN PRN Reason: PAIN Last Admin: 10/28/16 05:59 Dose: 1 mg Sodium Chloride (Normal Saline -) 1,000 mls @ 42 mls/hr IV ASDIR [facility] Last Admin: 10/27/16 20:32 Dose: 42 mls/hr Insulin Aspart (Novolog Vial Sliding Scale -) 1 vial SQ ACHS [facility] PRN Reason: Protocol Last Admin: 10/28/16 06:00 Dose: Not Given Lidocaine HCl (Xylocaine 2% Jelly) 1 applic TP Q4H PRN PRN Reason: PAIN Methimazole (Tapazole -) 10 mg NGT DAILY [facility] Last Admin: 10/27/16 10:13 Dose: 10 mg Methylprednisolone Sodium Succinate (Solu-Medrol -) 40 mg IVPB BID [facility] Last Admin: 10/27/16 21:34 Dose: 40 mg Metoprolol Tartrate (Lopressor -) 50 mg PO TID [facility] Last Admin: 10/28/16 05:59 Dose: 50 mg Metoprolol Tartrate (Lopressor Injection -) 5 mg IVPUSH Q6H-IV PRN PRN Reason: ANXIETY Last Admin: 10/26/16 19:21 Dose: 5 mg Mirtazapine (Remeron -) 15 mg NGT DAILY [facility] Last Admin: 10/27/16 10:12 Dose: 15 mg Ranitidine HCl (Zantac Oral Solution -) 150 mg NGT BID [facility] Last Admin: 10/27/16 21:34 Dose: 150 mg Scopolamine HBr (Transderm-Scop -) 1 patch TD Q72H [facility] Last Admin: 10/26/16 19:23 Dose: 1 patch - Objective Vital Signs: Vital Signs Temperature 99.2 F 10/28/16 05:57 Pulse Rate 81 10/28/16 05:57 Respiratory Rate 14 10/28/16 05:57 Blood Pressure 160/91 10/28/16 05:57 O2 Sat by Pulse Oximetry (%) 97 10/27/16 20:58 Constitutional: Yes: Well Nourished, No Distress Neck: Yes: Other (Trach) Cardiovascular: Yes: Regular Rate and Rhythm, S1, S2. No: Murmur Respiratory: Yes: WNL, Regular, CTA Bilaterally Gastrointestinal: Yes: Soft. No: Tenderness Edema: No Labs: CBC, BMP 10/28/16 05:15 INR, PTT INR 1.75 (0.82-1.09) H 10/24/16 09:30 Problem List - Problems (1) ALS (amyotrophic lateral sclerosis) Code(s): G12.21 - AMYOTROPHIC LATERAL SCLEROSIS (2) Cardiac arrest Code(s): I46.9 - CARDIAC ARREST, CAUSE UNSPECIFIED (3) Respiratory failure requiring intubation Code(s): J96.90 - RESPIRATORY FAILURE, UNSP, UNSP W HYPOXIA OR HYPERCAPNIA (4) Fever Code(s): R50.9 - FEVER, UNSPECIFIED Assessment/Plan Microbiology 10/23/16 11:25 Sputum - Endotrachea Suction/Ventilator Gram Stain - Final 10/23/16 11:25 Sputum - Endotrachea Suction/Ventilator Sputum Culture - Final Enterobacter Cloacae 10/23/16 09:57 Blood - Peripheral Venous Blood Culture - Preliminary NO GROWTH OBTAINED AFTER 96 HOURS, INCUBATION TO CONTINUE FOR 1 DAYS. 10/23/16 09:23 Blood - Peripheral Venous Blood Culture - Preliminary NO GROWTH OBTAINED AFTER 96 HOURS, INCUBATION TO CONTINUE FOR 1 DAYS. Laboratory Tests 10/27/16 10/28/16 05:15 05:15 WBC 17.0 H Hgb 11.2 Plt Count 383 BUN 31 H Creatinine 0.3 L D Assessment Respiratory failure now with once again complete white out left hemithorax S/P bronchoscopy ALS Elevated WBC steroids and atalectasis related Plan No antibiotics at this time Pulmonary consult Margot LOVELACE
[2016-10-28 07:15] LABS: ALBUMIN 2.5 g/dl (3.4-5.0); ALK PHOS 123 U/L (45-117); ANION GAP 8 (8-16); BILIRUBIN,TOTAL 0.3 mg/dL (0.2-1.0); CALCIUM 8.7 mg/dL (8.5-10.1); CO2 28 mmol/L (21-32); CREATININE 0.4 mg/dL (0.55-1.02); GLUCOSE,RANDOM 183 mg/dL (74-106); MAGNESIUM 2.5 mg/dL (1.8-2.4); PHOSPHOROUS 2.3 mg/dL (2.5-4.9); SGOT/AST 8 U/L (15-37); SGPT/ALT 20 U/L (12-78); TOT PROT 6.3 g/dl (6.4-8.2)
[2016-10-28 07:34] LABS: BILIRUBIN,DIRECT < 0.1 mg/dL (0.0-0.2)
--- NOTE | 2016-10-28 08:06 | PN ---
Progress Note (short form) - Note Progress Note: PULMONARY/CRITICAL CARE FOLLOW UP: Progress Note (short form) - Note Progress Note: SUBJECTIVE: Patient seen and examined in the ICU. 24 HOUR EVENTS: -no acute events overnight Current Medications Acetaminophen (Tylenol -) 650 mg PO Q4H PRN PRN Reason: FEVER OR PAIN Albuterol/Ipratropium (Duoneb -) 1 amp NEB QIDR [facility] Last Admin: 10/28/16 05:59 Dose: 1 amp Chlorhexidine Gluconate (Hibiclens For Decolonization -) 1 applic TP HS [facility] Last Admin: 10/27/16 21:34 Dose: 1 applic Chlorhexidine Gluconate (Peridex -) 15 ml MM BID [facility] Last Admin: 10/27/16 21:34 Dose: 15 ml Digoxin (Lanoxin -) 0.125 mg PO DAILY [facility] Last Admin: 10/27/16 10:11 Dose: 0.125 mg Diltiazem HCl (Cardizem Injection -) 10 mg IVPUSH Q4H PRN PRN Reason: TACHYCARDIA Last Admin: 10/26/16 11:11 Dose: 10 mg Diltiazem HCl (Cardizem -) 30 mg NGT TID [facility] Last Admin: 10/28/16 05:59 Dose: 30 mg Hydromorphone HCl (Dilaudid Injection -) 1 mg IVPUSH Q6H PRN PRN Reason: PAIN Last Admin: 10/28/16 05:59 Dose: 1 mg Sodium Chloride (Normal Saline -) 1,000 mls @ 42 mls/hr IV ASDIR [facility] Last Admin: 10/27/16 20:32 Dose: 42 mls/hr Insulin Aspart (Novolog Vial Sliding Scale -) 1 vial SQ ACHS [facility] PRN Reason: Protocol Last Admin: 10/28/16 06:00 Dose: Not Given Lidocaine HCl (Xylocaine 2% Jelly) 1 applic TP Q4H PRN PRN Reason: PAIN Methimazole (Tapazole -) 10 mg NGT DAILY [facility] Last Admin: 10/27/16 10:13 Dose: 10 mg Methylprednisolone Sodium Succinate (Solu-Medrol -) 40 mg IVPB BID [facility] Last Admin: 10/27/16 21:34 Dose: 40 mg Metoprolol Tartrate (Lopressor -) 50 mg PO TID [facility] Last Admin: 10/28/16 05:59 Dose: 50 mg Metoprolol Tartrate (Lopressor Injection -) 5 mg IVPUSH Q6H-IV PRN PRN Reason: ANXIETY Last Admin: 10/26/16 19:21 Dose: 5 mg Mirtazapine (Remeron -) 15 mg NGT DAILY [facility] Last Admin: 10/27/16 10:12 Dose: 15 mg Ranitidine HCl (Zantac Oral Solution -) 150 mg NGT BID [facility] Last Admin: 10/27/16 21:34 Dose: 150 mg Scopolamine HBr (Transderm-Scop -) 1 patch TD Q72H [facility] Last Admin: 10/26/16 19:23 Dose: 1 patch Vital Signs Temp 99.2 F 10/28/16 05:57 Pulse 81 10/28/16 05:57 Resp 14 10/28/16 07:03 BP 160/91 10/28/16 05:57 Pulse Ox 97 10/27/16 20:58 Intake & Output 10/27/16 10/28/16 10/28/16 18:59 06:59 18:59 Intake Total 994 924 Output Total 300 700 Balance 694 224 Weight 76.232 kg Intake: IV 609 504 Cardizem Injection - 125 105 mg In D5w - 100 ml @ 5 MG /HR 5 mls/hr IVPB TITR [facility] Rx#:[id number] Normal Saline - 1,000 ml 504 504 @ 42 mls/hr IV ASDIR [facility] Rx#:[id number] Tube Feeding 275 300 Tube Irrigant 110 120 Output: Urine 300 700 Carrillo 300 700 Other: Voiding Method Indwelling Catheter Indwelling Catheter Bowel Movement No Yes Weight Measurement Method Built in Bedscale EXAM neuro: awake, alert HEENT: trach in place, PERRL, MMM lungs: clear, not wheezing heart: irregular abd: soft, non-tender ext: no edema, warm skin: warm, dry CBC, BMP 10/28/16 05:15 10/28/16 05:15 ASSESSMENT AND PLAN: S/P Trach due to failure to wean due to ALS Now with chronic vent dependant respiratory failure s/p Cardiac Arrest likely from Respiratory Failure Pneumonia Sepsis Lactic Acidosis resolved Advanced ALS Paroxysmal Atrial Fibrillation with RVR HTN Hyperthyroidism - Off ABX per ID - rate control with metoprolol, dig, dilt - AC - enteral feeds - PS as tolerate, has progressive resp failure due to muscle weakness unlikely to wean - DVT/GI prophylaxis - Will need PEG for NH placement Transfer to tele [facility] bed while awaiting PEG and facility placement Sal Gee Pulm/Critical Care DEPUTY SHERIFF/INVESTIGATOR [id number]
--- NOTE | 2016-10-28 09:00 | PN ---
Progress Note, Physician - Current Medication List Current Medications: Active Medications Acetaminophen (Tylenol -) 650 mg PO Q4H PRN PRN Reason: FEVER OR PAIN Albuterol/Ipratropium (Duoneb -) 1 amp NEB QIDR [facility] Last Admin: 10/28/16 05:59 Dose: 1 amp Chlorhexidine Gluconate (Hibiclens For Decolonization -) 1 applic TP HS [facility] Last Admin: 10/27/16 21:34 Dose: 1 applic Chlorhexidine Gluconate (Peridex -) 15 ml MM BID [facility] Last Admin: 10/27/16 21:34 Dose: 15 ml Digoxin (Lanoxin -) 0.125 mg PO DAILY [facility] Last Admin: 10/27/16 10:11 Dose: 0.125 mg Diltiazem HCl (Cardizem Injection -) 10 mg IVPUSH Q4H PRN PRN Reason: TACHYCARDIA Last Admin: 10/26/16 11:11 Dose: 10 mg Diltiazem HCl (Cardizem -) 30 mg NGT TID [facility] Last Admin: 10/28/16 05:59 Dose: 30 mg Hydromorphone HCl (Dilaudid Injection -) 1 mg IVPUSH Q6H PRN PRN Reason: PAIN Last Admin: 10/28/16 05:59 Dose: 1 mg Sodium Chloride (Normal Saline -) 1,000 mls @ 42 mls/hr IV ASDIR [facility] Last Admin: 10/27/16 20:32 Dose: 42 mls/hr Insulin Aspart (Novolog Vial Sliding Scale -) 1 vial SQ ACHS [facility] PRN Reason: Protocol Last Admin: 10/28/16 06:00 Dose: Not Given Lidocaine HCl (Xylocaine 2% Jelly) 1 applic TP Q4H PRN PRN Reason: PAIN Methimazole (Tapazole -) 10 mg NGT DAILY [facility] Last Admin: 10/27/16 10:13 Dose: 10 mg Methylprednisolone Sodium Succinate (Solu-Medrol -) 40 mg IVPB BID [facility] Last Admin: 10/27/16 21:34 Dose: 40 mg Metoprolol Tartrate (Lopressor -) 50 mg PO TID [facility] Last Admin: 10/28/16 05:59 Dose: 50 mg Metoprolol Tartrate (Lopressor Injection -) 5 mg IVPUSH Q6H-IV PRN PRN Reason: ANXIETY Last Admin: 10/26/16 19:21 Dose: 5 mg Mirtazapine (Remeron -) 15 mg NGT DAILY [facility] Last Admin: 10/27/16 10:12 Dose: 15 mg Ranitidine HCl (Zantac Oral Solution -) 150 mg NGT BID [facility] Last Admin: 10/27/16 21:34 Dose: 150 mg Scopolamine HBr (Transderm-Scop -) 1 patch TD Q72H [facility] Last Admin: 10/26/16 19:23 Dose: 1 patch - Objective Vital Signs: Vital Signs Temperature 99.2 F 10/28/16 05:57 Pulse Rate 72 10/28/16 08:00 Respiratory Rate 16 10/28/16 08:00 Blood Pressure 128/79 10/28/16 08:00 O2 Sat by Pulse Oximetry (%) 32 L 10/28/16 08:34 Eyes: Yes: WNL, Conjunctiva Clear, EOM Intact HENT: Yes: WNL, Atraumatic, Normocephalic Neck: Yes: WNL, Supple, Trachea Midline Cardiovascular: Yes: WNL, Regular Rate and Rhythm Respiratory: Yes: Mechanically Ventilated Gastrointestinal: Yes: WNL, Normal Bowel Sounds Genitourinary: Yes: WNL Musculoskeletal: Yes: WNL Extremities: Yes: WNL Edema: No Integumentary: Yes: WNL Neurological: Yes: WNL, Alert, Oriented ...Motor Strength: WNL Psychiatric: Yes: WNL Labs: CBC, BMP 10/28/16 05:15 10/28/16 05:15 INR, PTT INR 1.75 (0.82-1.09) H 10/24/16 09:30 Assessment/Plan Advanced ALS Acute respiratory failure, probably multifactorial due to PNA and advanced ALS PAFib with RVR S/P Cardiopulmonary arrest in setting of acute respiratory failure, with recent echo normal LVEF and negative TnIs this admission REC: 1. PAFib with episodes of RVR; periods of Aflutter -wean cardizem gtt as tolerates -cont lopressor as BP tolerates, po cardizem was stopped -start digoxin PO, BP is lowish- will not tolerate additional BBlocker -Cont Eliquis 2. Acute respiratory failure: -multifactorial, likely due to advanced ALS -off ABx -s/p trach 3.Cardiopulmonary arrest:-Not a primary cardiac arrest -in setting of acute respiratory failure -LV function normal on echo -cardiac enzymes wnl -no additional cardiac work up needed at this point cc time 35 min
[2016-10-28] MEDS ORDERED: PT OWN MED DRAWER 7, Y5N ONE (09:03)
[2016-10-28] MEDS: DIGOXIN 0.125 MG TABLET (FP) PO SCH (09:06)
[2016-10-28] MEDS: methylPREDNISolone NA SUCC 40 MG/1 ML VIAL IVPB SCH ×2 (09:07→22:37)
[2016-10-28] MEDS: CHLORHEXIDINE GLUCONATE 0.12% 15ML CUP MM SCH ×2 (09:07→22:39)
[2016-10-28] MEDS: RANITIDINE HCL 150 MG/10 ML UNIT-DOSE CUP NGT SCH ×2 (09:08→22:36)
[2016-10-28] MEDS: MIRTAZAPINE 15 MG TABLET (FP) NGT SCH (09:08)
[2016-10-28] MEDS: METHIMAZOLE 10 MG TABLET (FP) NGT SCH (09:09)
--- NOTE | 2016-10-28 10:11 | PN ---
Physical Exam: SUBJECTIVE: Patient seen and examined The patient is a 56-year-old woman with a history of ALS, chronic hypercapnic respiratory failure, HTN, hyperthyroidism, atrial fib and hyperlipidemia who was brought in to the ER on 10/15 after being intubated by EMS for acute respiratory distress and subsequently developed cardiac arrest in the ER. Case discussed with family. Pt awake, interactive. Family relates that she has no particular complaints. OBJECTIVE: Vital Signs Period Temp Pulse Resp BP Sys/Hatch Pulse Ox Last 24 Hr 99 F-99.3 F 60-81 14-27 128-160/79-91 32-100 GEN: awake, alert HEENT: trach in place, PERRL PULM: clear CVS: irregular rhythm, regular rate ABD: soft, non-tender EXT: no edema, warm Laboratory Results - last 24 hr 10/27/16 10/27/16 10/27/16 12:56 18:03 21:45 WBC RBC Hgb Hct MCV MCH MCHC RDW Plt Count MPV Neutrophils % Lymphocytes % Monocytes % Eosinophils % Basophils % Sodium Potassium Chloride Carbon Dioxide Anion Gap BUN Creatinine POC Glucometer 193.09873 194.86316 185.35194 Random Glucose Hemoglobin A1c % Calcium Phosphorus Magnesium Total Bilirubin Direct Bilirubin AST ALT Alkaline Phosphatase Total Protein Albumin 10/28/16 10/28/16 10/28/16 05:15 05:15 05:15 WBC 17.0 H RBC 3.76 Hgb 11.2 Hct 34.5 MCV 91.8 MCH 29.8 MCHC 32.5 RDW 14.9 Plt Count 383 MPV 9.4 Neutrophils % 95.5 H Lymphocytes % 1.8 L D Monocytes % 2.7 L Eosinophils % 0.0 D Basophils % 0.0 Sodium 149 H Potassium 3.6 Chloride 113 H Carbon Dioxide 28 Anion Gap 8 BUN 33 H Creatinine 0.4 L D POC Glucometer Random Glucose 183 H Hemoglobin A1c % 4.3 L Calcium 8.7 Phosphorus 2.3 L D Magnesium 2.5 H Total Bilirubin 0.3 D Direct Bilirubin < 0.1 AST 8 L D ALT 20 Alkaline Phosphatase 123 H D Total Protein 6.3 L Albumin 2.5 L D 10/28/16 05:26 WBC RBC Hgb Hct MCV MCH MCHC RDW Plt Count MPV Neutrophils % Lymphocytes % Monocytes % Eosinophils % Basophils % Sodium Potassium Chloride Carbon Dioxide Anion Gap BUN Creatinine POC Glucometer 196.78274 Random Glucose Hemoglobin A1c % Calcium Phosphorus Magnesium Total Bilirubin Direct Bilirubin AST ALT Alkaline Phosphatase Total Protein Albumin Active Medications Generic Name Dose Route Start Last Admin Trade Name Freq PRN Reason Stop Dose Admin Acetaminophen 650 mg 10/25/16 19:59 Tylenol - PO Q4H PRN FEVER OR PAIN Albuterol/Ipratropium 1 amp 10/26/16 00:00 10/28/16 05:59 Duoneb - NEB 1 amp QIDR [facility] Administration Chlorhexidine Gluconate 1 applic 10/25/16 22:00 10/27/16 21:34 Hibiclens For Decolonization - TP 1 applic HS [facility] Administration Chlorhexidine Gluconate 15 ml 10/25/16 22:00 10/28/16 09:07 Peridex - MM 15 ml BID [facility] Administration Digoxin 0.125 mg 10/26/16 10:00 10/28/16 09:06 Lanoxin - PO 0.125 mg DAILY [facility] Administration Diltiazem HCl 10 mg 10/25/16 19:59 10/26/16 11:11 Cardizem Injection - IVPUSH 10 mg Q4H PRN Administration TACHYCARDIA Diltiazem HCl 30 mg 10/27/16 14:00 10/28/16 05:59 Cardizem - NGT 30 mg TID [facility] Administration Hydromorphone HCl 1 mg 10/25/16 22:09 10/28/16 05:59 Dilaudid Injection - IVPUSH 1 mg Q6H PRN Administration PAIN Sodium Chloride 1,000 mls @ 42 mls/hr 10/25/16 19:59 10/27/16 20:32 Normal Saline - IV 42 mls/hr ASDIR [facility] Administration Insulin Aspart 1 vial 10/25/16 22:00 10/28/16 06:00 Novolog Vial Sliding Scale - SQ Not Given ACHS [facility] Protocol Lidocaine HCl 1 applic 10/25/16 19:59 Xylocaine 2% Jelly TP Q4H PRN PAIN Methimazole 10 mg 10/26/16 10:00 10/28/16 09:09 Tapazole - NGT 10 mg DAILY [facility] Administration Methylprednisolone Sodium Succinate 40 mg 10/25/16 22:00 10/28/16 09:07 Solu-Medrol - IVPB 40 mg BID [facility] Administration Metoprolol Tartrate 50 mg 10/25/16 22:00 10/28/16 05:59 Lopressor - PO 50 mg TID [facility] Administration Metoprolol Tartrate 5 mg 10/26/16 15:00 10/26/16 19:21 Lopressor Injection - IVPUSH 5 mg Q6H-IV PRN Administration ANXIETY Mirtazapine 15 mg 10/26/16 10:00 10/28/16 09:08 Remeron - NGT 15 mg DAILY [facility] Administration Ranitidine HCl 150 mg 10/25/16 22:00 10/28/16 09:08 Zantac Oral Solution - NGT 150 mg BID [facility] Administration Scopolamine HBr 1 patch 10/26/16 19:15 10/26/16 19:23 Transderm-Scop - TD 1 patch Q72H [facility] Administration ASSESSMENT/PLAN: #PULMONARY Acute on chronic hypoxic and hypercapnic respiratory failure Advanced ALS Continue SoluMedrol, DuoNeb s/p tracheostomy 10/25 Wean vent as per pulmonary/critical care She is off all antibiotics per ID and has no evidence of infection Palliative care following Possible transfer to [facility] #CARDIOVASCULAR Paroxysmal Atrial Fibrillation with RVR HTN Continue rate control with metoprolol, digoxin, and diltiazem drip Wean diltiazem drip per cardiology Eliquis on hold pending PEG placement, planned for tomorrow Will discuss need to Heparin IV in the meantime with cards and route relief driver if PEG placement is deferred #ENDOCRINE Hyperthyroidism Continue Tapazole #ENDO Hyperglycemia, possible type 2 DM Continue Novolog sliding scale HbA1c was normal #PSYCH Depression Continue Remeron #FEN Continue enteral feeds with Glucerna Will need PEG for NH placement #PROPHYLAXIS On Eliquis On Zantac Visit type - Emergency Visit Emergency Visit: Yes ED Registration Date: 10/15/16 Care time: The patient presented to the Emergency Department on the above date and was hospitalized for further evaluation of their emergent condition. - New Patient This patient is new to me today: Yes Date on this admission: 10/28/16 - Critical Care Critical Care patient: No
--- NOTE | 2016-10-28 17:19 | PN ---
GI Progress Note Subjective: Patient appears comfortable She again nods yes when asked about G tube - Objective Vital Signs: Vital Signs Temperature 99 F 10/28/16 14:00 Pulse Rate 86 10/28/16 14:00 Respiratory Rate 17 10/28/16 14:16 Blood Pressure 144/77 10/28/16 14:00 O2 Sat by Pulse Oximetry (%) 32 L 10/28/16 08:34 Constitutional: Well Nourished HENT: Yes: Normocephalic Neck: Yes: Supple Cardiovascular: Yes: Regular Rate and Rhythm Respiratory: Yes: CTA Bilaterally Gastrointestinal Inspection: Yes: WNL ...Auscultate: Yes: Normoactive Bowel Sounds ...Palpate: Yes: Soft. No: Tenderness Labs: CBC, BMP 10/28/16 05:15 10/28/16 05:15 INR, PTT INR 1.75 (0.82-1.09) H 10/24/16 09:30 Assessment/Plan Patient with INR 1.75 on 10/24. Stat INR now and 2 units of FFP if >2.5 PEG tomorrow 7:30 AM
[2016-10-28 18:11] LABS: INR 1.3 (0.82-1.09); PROTHROMBIN TIME (PATIENT) 14.4 SEC (9.98-11.88)
[2016-10-28] MEDS: CHLORHEXIDINE GLUCONATE 4% CLEANSER FOR DECOLONIZATION TP SCH (22:37)
[2016-10-28] MEDS: SODIUM CHLORIDE 1,000 ML IV SCH (22:38)
[2016-10-28] MEDS: ACETAMINOPHEN 325 MG TABLET (FP) PO PRN (22:38)
[2016-10-29] MEDS: ALBUTEROL SO4 2.5/IPRATROPIUM 0.5 INH SOL 3 ML VIAL.NEB. NEB SCH ×4 (06:00→23:02)
[2016-10-29] MEDS: dilTIAZem HCL 30 MG TABLET (FP) NGT SCH ×3 (06:33→22:09)
[2016-10-29] MEDS: METOPROLOL TARTRATE 50 MG TABLET (FP) PO SCH ×3 (06:33→22:09)
[2016-10-29] MEDS ORDERED: ACETAMINOPHEN 1000 MG/100 ML VIAL (NON FORMULARY) IVPB ONE (06:38)
[2016-10-29] MEDS: INSULIN SLIDING SCALE (NOVOLOG) 1 VIAL SQ SCH ×4 (06:45→22:16)
[2016-10-29 06:48] LABS: BASOPHIL 0.2 % (0-2.0); MCH 30.5 pg (25.7-33.7); MCHC 33.4 g/dl (32.0-36.0); MEAN CELL VOLUME 91.2 fl (80-96); MEAN PLT VOLUME 9.8 fl (7.5-11.1); NEUTROPHILS 97.9 % (42.8-82.8); PLATELET COUNT 303 K/MM3 (134-434); RDW 14.9 % (11.6-15.6)
[2016-10-29 07:06] LABS: ANION GAP 8 (8-16); CALCIUM 8.4 mg/dL (8.5-10.1); CO2 31 mmol/L (21-32); CREATININE 0.3 mg/dL (0.55-1.02); GLUCOSE,RANDOM 143 mg/dL (74-106); MAGNESIUM 2.3 mg/dL (1.8-2.4); PHOSPHOROUS 1.9 mg/dL (2.5-4.9)
--- NOTE | 2016-10-29 07:51 | PN ---
Progress Note, Physician Chief Complaint: ID Carrillo catheter changed per nursing staff Had fever 101-100.4 hemodynamically stable Vent dependent Needs PEG tube - Current Medication List Current Medications: Active Medications Acetaminophen (Tylenol -) 650 mg PO Q4H PRN PRN Reason: FEVER OR PAIN Last Admin: 10/28/16 22:38 Dose: 650 mg Albuterol/Ipratropium (Duoneb -) 1 amp NEB QIDR [facility] Last Admin: 10/29/16 06:00 Dose: 1 amp Chlorhexidine Gluconate (Hibiclens For Decolonization -) 1 applic TP HS [facility] Last Admin: 10/28/16 22:37 Dose: 1 applic Chlorhexidine Gluconate (Peridex -) 15 ml MM BID [facility] Last Admin: 10/28/16 22:39 Dose: 15 ml Digoxin (Lanoxin -) 0.125 mg PO DAILY [facility] Last Admin: 10/28/16 09:06 Dose: 0.125 mg Diltiazem HCl (Cardizem Injection -) 10 mg IVPUSH Q4H PRN PRN Reason: TACHYCARDIA Last Admin: 10/26/16 11:11 Dose: 10 mg Diltiazem HCl (Cardizem -) 30 mg NGT TID [facility] Last Admin: 10/29/16 06:33 Dose: Not Given Sodium Chloride (Normal Saline -) 1,000 mls @ 42 mls/hr IV ASDIR [facility] Last Admin: 10/28/16 22:38 Dose: 42 mls/hr Insulin Aspart (Novolog Vial Sliding Scale -) 1 vial SQ ACHS [facility] PRN Reason: Protocol Last Admin: 10/29/16 06:45 Dose: Not Given Lidocaine HCl (Xylocaine 2% Jelly) 1 applic TP Q4H PRN PRN Reason: PAIN Methimazole (Tapazole -) 10 mg NGT DAILY [facility] Last Admin: 10/28/16 09:09 Dose: 10 mg Methylprednisolone Sodium Succinate (Solu-Medrol -) 40 mg IVPB BID [facility] Last Admin: 10/28/16 22:37 Dose: 40 mg Metoprolol Tartrate (Lopressor -) 50 mg PO TID [facility] Last Admin: 10/29/16 06:33 Dose: Not Given Metoprolol Tartrate (Lopressor Injection -) 5 mg IVPUSH Q6H-IV PRN PRN Reason: ANXIETY Last Admin: 10/26/16 19:21 Dose: 5 mg Mirtazapine (Remeron -) 15 mg NGT DAILY [facility] Last Admin: 10/28/16 09:08 Dose: 15 mg Ranitidine HCl (Zantac Oral Solution -) 150 mg NGT BID [facility] Last Admin: 10/28/16 22:36 Dose: 150 mg Scopolamine HBr (Transderm-Scop -) 1 patch TD Q72H [facility] Last Admin: 10/26/16 19:23 Dose: 1 patch - Objective Vital Signs: Vital Signs Temperature 100.4 F H 10/29/16 06:00 Pulse Rate 84 10/29/16 06:00 Respiratory Rate 22 10/29/16 07:06 Blood Pressure 151/86 10/29/16 06:00 O2 Sat by Pulse Oximetry (%) 32 L 10/28/16 21:00 Constitutional: Yes: Other (NGT) Cardiovascular: Yes: S1, S2 Respiratory: Yes: WNL, Regular, CTA Bilaterally Gastrointestinal: Yes: WNL, Normal Bowel Sounds, Soft. No: Tenderness Edema: No Labs: CBC, BMP 10/29/16 05:15 10/29/16 05:15 INR, PTT INR 1.30 (0.82-1.09) H 10/28/16 17:45 Problem List - Problems (1) ALS (amyotrophic lateral sclerosis) Code(s): G12.21 - AMYOTROPHIC LATERAL SCLEROSIS (2) Cardiac arrest Code(s): I46.9 - CARDIAC ARREST, CAUSE UNSPECIFIED (3) Respiratory failure requiring intubation Code(s): J96.90 - RESPIRATORY FAILURE, UNSP, UNSP W HYPOXIA OR HYPERCAPNIA (4) Fever Code(s): R50.9 - FEVER, UNSPECIFIED Assessment/Plan Microbiology 10/23/16 11:25 Sputum - Endotrachea Suction/Ventilator Gram Stain - Final 10/23/16 11:25 Sputum - Endotrachea Suction/Ventilator Sputum Culture - Final Enterobacter Cloacae 10/23/16 09:57 Blood - Peripheral Venous Blood Culture - Final NO GROWTH AFTER 5 DAYS INCUBATION 10/23/16 09:23 Blood - Peripheral Venous Blood Culture - Final NO GROWTH AFTER 5 DAYS INCUBATION Laboratory Tests 10/29/16 10/29/16 05:15 05:15 WBC 17.0 H RBC 3.38 L Hgb 10.3 L Plt Count 303 D BUN 23 H D Creatinine 0.3 L D Assessment Fever with multiple possible sources including lung ( PNA) and urinary tract ALS Need for PEG Respiratory failure Post cardiac arrest Plan Repeat cultures now Start Vancomycin and Ceftazidime Discussed with GI re plan for GI tube today Repeat chest xray as hemithorax opacified last chest xray Margot LOVELACE
[2016-10-29] MEDS ORDERED: LIDOCAINE HCL 2% (20ML MULTI-DOSE VIAL) NR ONE (07:54)
[2016-10-29] MEDS ORDERED: ETOMIDATE 20 MG/10 ML AMPUL IVPUSH ONE (07:54)
[2016-10-29] MEDS ORDERED: PROPOFOL 20 ML ONE (07:54)
[2016-10-29] MEDS ORDERED: METOPROLOL TARTRATE 5 MG/5 ML VIAL ONE (07:59)
--- NOTE | 2016-10-29 08:48 | PN ---
Progress Note (short form) - Note Progress Note: ADDENDUM: S/P PEG placement Procedure uneventful No bleeding noted Hold AC for another 24 hours, then resume PEG orders written
[2016-10-29] MEDS ORDERED: cefTAZidime PENTAHYDRATE 1 GM/50ML PRE-DOCKED (RESTRICTED TO ID) IVPB SCH (10:00)
--- NOTE | 2016-10-29 10:08 | PN ---
Progress Note (short form) - Note Progress Note: NEUROLOGY FOLLOW-UP: Events reviewed and discussed with at the bedside. S/P Tracheostomy Saturday AM S/P Percutaneous endoscotic Gastrostomy this AM. Still sedated. notes she was awake, alert, well-oriented and communicating with family members all weekend. He is concerned that she "can't come home now." CAMILO: PEG site bandaged. Trache site clear. Follows simple commands. No functional limb mov'ts. IMP ALS: Now s/p trache and PEG. For SNF placement. Educate family on PEG feedings and care. Thank you very much, Hector Carr MD
--- NOTE | 2016-10-29 10:21 | PN ---
Progress Note, Physician History of Present Illness: seen and examined today in nad. just returned from PEG placement. still slightly sedated. no overnight events. no new complaints. - Current Medication List Current Medications: Active Medications Acetaminophen (Tylenol -) 650 mg PO Q4H PRN PRN Reason: FEVER OR PAIN Last Admin: 10/28/16 22:38 Dose: 650 mg Albuterol/Ipratropium (Duoneb -) 1 amp NEB QIDR [facility] Last Admin: 10/29/16 06:00 Dose: 1 amp Bacitracin (Bacitracin -) 1 applic TP DAILY [facility] Chlorhexidine Gluconate (Hibiclens For Decolonization -) 1 applic TP HS [facility] Last Admin: 10/28/16 22:37 Dose: 1 applic Chlorhexidine Gluconate (Peridex -) 15 ml MM BID [facility] Last Admin: 10/28/16 22:39 Dose: 15 ml Digoxin (Lanoxin -) 0.125 mg PO DAILY [facility] Last Admin: 10/28/16 09:06 Dose: 0.125 mg Diltiazem HCl (Cardizem Injection -) 10 mg IVPUSH Q4H PRN PRN Reason: TACHYCARDIA Last Admin: 10/26/16 11:11 Dose: 10 mg Diltiazem HCl (Cardizem -) 30 mg NGT TID [facility] Last Admin: 10/29/16 06:33 Dose: Not Given Sodium Chloride (Normal Saline -) 1,000 mls @ 42 mls/hr IV ASDIR [facility] Last Admin: 10/28/16 22:38 Dose: 42 mls/hr Vancomycin HCl 1,250 mg/ (Dextrose) 250 mls @ 250 mls/hr IVPB BID [facility] PRN Reason: Protocol Ceftazidime 2 gm/ Dextrose 100 mls @ 200 mls/hr IVPB Q8H-IV [facility] Potassium Phosphate 20 mm/ (Sodium Chloride) 256.6667 mls @ 62.5 mls/hr IVPB ONCE ONE Stop: 10/29/16 14:36 Insulin Aspart (Novolog Vial Sliding Scale -) 1 vial SQ ACHS [facility] PRN Reason: Protocol Last Admin: 10/29/16 06:45 Dose: Not Given Lidocaine HCl (Xylocaine 2% Jelly) 1 applic TP Q4H PRN PRN Reason: PAIN Methimazole (Tapazole -) 10 mg NGT DAILY [facility] Last Admin: 10/28/16 09:09 Dose: 10 mg Methylprednisolone Sodium Succinate (Solu-Medrol -) 40 mg IVPB BID [facility] Last Admin: 10/28/16 22:37 Dose: 40 mg Metoprolol Tartrate (Lopressor -) 50 mg PO TID [facility] Last Admin: 10/29/16 06:33 Dose: Not Given Metoprolol Tartrate (Lopressor Injection -) 5 mg IVPUSH Q6H-IV PRN PRN Reason: ANXIETY Last Admin: 10/26/16 19:21 Dose: 5 mg Mirtazapine (Remeron -) 15 mg NGT DAILY [facility] Last Admin: 10/28/16 09:08 Dose: 15 mg Ranitidine HCl (Zantac Oral Solution -) 150 mg NGT BID [facility] Last Admin: 10/28/16 22:36 Dose: 150 mg Scopolamine HBr (Transderm-Scop -) 1 patch TD Q72H [facility] Last Admin: 10/26/16 19:23 Dose: 1 patch - Objective Vital Signs: Vital Signs Temperature 100.4 F H 10/29/16 09:10 Pulse Rate 86 10/29/16 09:10 Respiratory Rate 22 10/29/16 09:10 Blood Pressure 144/80 10/29/16 09:10 O2 Sat by Pulse Oximetry (%) 96 10/29/16 07:20 Constitutional: Yes: No Distress, Calm Eyes: Yes: Conjunctiva Clear, EOM Intact HENT: Yes: Atraumatic, Normocephalic Respiratory: Yes: Regular, Diminished. No: Rales, Rhonchi, Wheezes Gastrointestinal: Yes: Normal Bowel Sounds, Other (PEG dressing in place) Edema: No Peripheral Pulses WNL: Yes Peripheral Pulses: Left Doralis Pedis: 2+, Right Dorsalis Pedis: 2+ Neurological: No: Alert, Oriented Psychiatric: No: Alert, Oriented Labs: CBC, BMP 10/29/16 05:15 10/29/16 05:15 INR, PTT INR 1.30 (0.82-1.09) H 10/28/16 17:45 - ....Imaging Chest X-ray: Report Reviewed, Image Reviewed EKG: Report Reviewed, Image Reviewed Other: Report Reviewed, Image Reviewed (tele-NSR, brief episodes of PAfib) Assessment/Plan Advanced ALS Acute respiratory failure, probably multifactorial due to PNA and advanced ALS PAFib with RVR S/P Cardiopulmonary arrest in setting of acute respiratory failure, with recent echo normal LVEF and negative TnIs this admission REC: 1. PAFib with episodes of RVR; periods of Aflutter -HR and rhythm appear better controlled -cont metoprolol, cardizem, and digoxin at current doses for now, at this point pt has improved on all 3 of these AV winston blockers, at some point can try to wean off either metoprolol or cardizem but for now would cont -resume Eliquis tomorrow (holding 24 more hours post PEG as per GI) 2. Acute respiratory failure: -multifactorial, likely due to advanced ALS -off ABx -s/p trach -s/p PEG 3.Cardiopulmonary arrest:-Not a primary cardiac arrest -in setting of acute respiratory failure -LV function normal on echo -cardiac enzymes wnl -no additional cardiac work up needed at this point
[2016-10-29] MEDS ORDERED: POTASSIUM PHOSPHATE 20 MM in SODIUM CHLORIDE 250 ML IVPB ONE (10:30)
[2016-10-29] MEDS: MIRTAZAPINE 15 MG TABLET (FP) NGT SCH (11:09)
[2016-10-29] MEDS: DIGOXIN 0.125 MG TABLET (FP) PO SCH (11:09)
[2016-10-29] MEDS: RANITIDINE HCL 150 MG/10 ML UNIT-DOSE CUP NGT SCH ×2 (11:10→22:09)
[2016-10-29] MEDS: methylPREDNISolone NA SUCC 40 MG/1 ML VIAL IVPB SCH (11:10)
[2016-10-29] MEDS: CEFTAZIDIME PENTAHYDRATE 2 GM in DEXTROSE 5%-WATER - 100 ML IVPB SCH ×2 (11:20→18:55)
[2016-10-29] MEDS: CHLORHEXIDINE GLUCONATE 0.12% 15ML CUP MM SCH ×2 (11:26→22:09)
--- NOTE | 2016-10-29 11:29 | PN ---
Teaching Attending Note Name of Resident: Manjula Delvalle ATTENDING PHYSICIAN STATEMENT I saw and evaluated the patient. I reviewed the resident's note and discussed the case with the resident. I agree with the resident's findings and plan as documented. SUBJECTIVE: Appears comfortable OBJECTIVE: Vitals noted ASSESSMENT AND PLAN: Multifactorial respiratory failure Pneumonia Rapid atrial fibbrilation She is now s/p PEG Continue current management Appreciate lending consultant input Will begin LTACH search See resident note for full details
[2016-10-29] MEDS ORDERED: morphine CARPU-JECT 2 MG/1 ML DISP.SYRIN IVPUSH PRN (11:35)
[2016-10-29] MEDS ORDERED: PT OWN MED DRAWER 7, Y5N ONE ×2 (11:40→18:54)
[2016-10-29] MEDS: METHIMAZOLE 10 MG TABLET (FP) NGT SCH (11:52)
[2016-10-29] MEDS: VANCOMYCIN 1,250 MG in DEXTROSE 5%-WATER - 250 ML IVPB SCH ×2 (12:26→22:16)
[2016-10-29] MEDS: BACITRACIN 15 GM TUBE TOPICAL OINTMENT TP SCH (14:39)
--- NOTE | 2016-10-29 15:52 | PN ---
Physical Exam: SUBJECTIVE: Patient seen and examined. She is s/p trach. Pain is controlled. No other complaints. OBJECTIVE: Vital Signs Period Temp Pulse Resp BP Sys/Hatch Pulse Ox Last 24 Hr 99 F-101 F 55-112 14-26 85-178/53-103 32-96 GENERAL: The patient is awake, alert, and fully oriented, in no acute distress. HEAD: Normal with no signs of trauma. EYES: extraocular movements intact, sclera anicteric, conjunctiva clear. No ptosis. NECK: Trachea midline, Trach in place, full range of motion, supple. LUNGS: Breath sounds equal, clear to auscultation bilaterally, no wheezes, no crackles, no accessory muscle use. HEART: Regular rate and rhythm, S1, S2 without murmur, rub or gallop. ABDOMEN: Soft, nontender, nondistended, normoactive bowel sounds, no guarding, no rebound. NEUROLOGICAL: Cranial nerves II through X grossly intact. Normal speech, gait not observed. SKIN: Warm, dry, normal turgor, no rashes or lesions noted Laboratory Results - last 24 hr 10/28/16 10/28/16 10/28/16 17:45 17:45 22:40 WBC RBC Hgb Hct MCV MCH MCHC RDW Plt Count MPV Neutrophils % Lymphocytes % Monocytes % Eosinophils % Basophils % INR 1.30 H Sodium Potassium Chloride Carbon Dioxide Anion Gap BUN Creatinine POC Glucometer 168.78231 172.64249 Random Glucose Calcium Phosphorus Magnesium 10/29/16 10/29/16 10/29/16 05:15 05:15 06:44 WBC 17.0 H RBC 3.38 L Hgb 10.3 L Hct 30.8 L MCV 91.2 MCH 30.5 MCHC 33.4 RDW 14.9 Plt Count 303 D MPV 9.8 Neutrophils % 97.9 H Lymphocytes % 1.0 L D Monocytes % 0.9 L Eosinophils % 0.0 Basophils % 0.2 D INR Sodium 151 H Potassium 3.0 L Chloride 112 H Carbon Dioxide 31 Anion Gap 8 BUN 23 H D Creatinine 0.3 L D POC Glucometer 180.61882 Random Glucose 143 H D Calcium 8.4 L Phosphorus 1.9 L Magnesium 2.3 Active Medications Generic Name Dose Route Start Last Admin Trade Name Freq PRN Reason Stop Dose Admin Acetaminophen 650 mg 10/25/16 19:59 10/28/16 22:38 Tylenol - PO 650 mg Q4H PRN Administration FEVER OR PAIN Albuterol/Ipratropium 1 amp 10/26/16 00:00 10/29/16 11:00 Duoneb - NEB 1 amp QIDR [facility] Administration Bacitracin 1 applic 10/29/16 10:00 10/29/16 14:39 Bacitracin - TP 1 applic DAILY [facility] Administration Chlorhexidine Gluconate 1 applic 10/25/16 22:00 10/28/16 22:37 Hibiclens For Decolonization - TP 1 applic HS [facility] Administration Chlorhexidine Gluconate 15 ml 10/25/16 22:00 10/29/16 11:26 Peridex - MM 15 ml BID [facility] Administration Digoxin 0.125 mg 10/26/16 10:00 10/29/16 11:09 Lanoxin - PO 0.125 mg DAILY [facility] Administration Diltiazem HCl 10 mg 10/25/16 19:59 10/26/16 11:11 Cardizem Injection - IVPUSH 10 mg Q4H PRN Administration TACHYCARDIA Diltiazem HCl 30 mg 10/27/16 14:00 10/29/16 14:38 Cardizem - NGT 30 mg TID [facility] Administration Sodium Chloride 1,000 mls @ 42 mls/hr 10/25/16 19:59 10/28/16 22:38 Normal Saline - IV 42 mls/hr ASDIR [facility] Administration Vancomycin HCl 1,250 mg/ 250 mls @ 250 mls/hr 10/29/16 10:00 10/29/16 12:26 Dextrose IVPB 250 mls/hr BID [facility] Administration Protocol Ceftazidime 2 gm/ Dextrose 100 mls @ 200 mls/hr 10/29/16 10:00 10/29/16 11:20 IVPB 200 mls/hr Q8H-IV [facility] Administration Insulin Aspart 1 vial 10/25/16 22:00 10/29/16 12:16 Novolog Vial Sliding Scale - SQ Not Given ACHS [facility] Protocol Lidocaine HCl 1 applic 10/25/16 19:59 Xylocaine 2% Jelly TP Q4H PRN PAIN Methimazole 10 mg 10/26/16 10:00 10/29/16 11:52 Tapazole - NGT 10 mg DAILY [facility] Administration Methylprednisolone Sodium Succinate 40 mg 10/30/16 10:00 Solu-Medrol - IVPB DAILY [facility] Metoprolol Tartrate 50 mg 10/25/16 22:00 10/29/16 14:38 Lopressor - PO 50 mg TID [facility] Administration Metoprolol Tartrate 5 mg 10/26/16 15:00 10/26/16 19:21 Lopressor Injection - IVPUSH 5 mg Q6H-IV PRN Administration ANXIETY Mirtazapine 15 mg 10/26/16 10:00 10/29/16 11:09 Remeron - NGT 15 mg DAILY [facility] Administration Morphine Sulfate 2 mg 10/29/16 11:35 10/29/16 11:51 Morphine Injection - IVPUSH 2 mg Q4H PRN Administration PAIN Ranitidine HCl 150 mg 10/25/16 22:00 10/29/16 11:10 Zantac Oral Solution - NGT 150 mg BID [facility] Administration Scopolamine HBr 1 patch 10/26/16 19:15 10/26/16 19:23 Transderm-Scop - TD 1 patch Q72H [facility] Administration ASSESSMENT/PLAN: 56 year old female with chronic respiratory failure and worsening ALS, paroxysmal atrial fibrillation with rapid ventricular response s/p surgical tracheostomy on 10/24/16. Neuro: patient with ALS -frequent neurochecks -monitor respiratory function on trach -provide versed 2mg Q1 PRN for agitation Cardiovascular: patient has hx of hypertension and afib w/ rvr, rate controlled. -continue cardizem 10mg IV push PRN afib -consider digoxin push if rate uncontrolled on cardizem -continue eloquis 5mg for afib -monitor BP, HR -AM labs GI: s/p PEG tube -meds through tube -monitor for pain at PEG placemnent site; 2mg morphine Q4H PRN pain FEN: -restart feeds when GI clears the patient Proph: -continue ranitidine Dispo: -continue to monitor in ICU Problem List - Problems (1) Diastolic CHF Code(s): I50.30 - UNSPECIFIED DIASTOLIC (CONGESTIVE) HEART FAILURE (2) Pneumonia Code(s): J18.9 - PNEUMONIA, UNSPECIFIED ORGANISM Qualifiers: Pneumonia type: due to unspecified organism Laterality: left Lung location: upper lobe of lung Qualified Code(s): J18.1 - Lobar pneumonia, unspecified organism (3) Status post tracheostomy Code(s): Z93.0 - TRACHEOSTOMY STATUS (4) Status post insertion of percutaneous endoscopic gastrostomy (PEG) tube Code(s): Z93.1 - GASTROSTOMY STATUS Visit type - Emergency Visit Emergency Visit: Yes ED Registration Date: 10/15/16 Care time: The patient presented to the Emergency Department on the above date and was hospitalized for further evaluation of their emergent condition. - New Patient This patient is new to me today: No - Critical Care Critical Care patient: Yes Total Critical Care Time (in minutes): 35 Critical Care Statement: The care of this patient involved high complexity decision making to prevent further life threatening deterioration of the patient 's condition and/or to evalute & treat vital organ system(s) failure or risk of failure.
--- NOTE | 2016-10-29 16:50 | PN ---
Physical Exam: SUBJECTIVE: Patient seen and examined OBJECTIVE: Vital Signs Period Temp Pulse Resp BP Sys/Hatch Pulse Ox Last 24 Hr 99 F-101 F 55-96 14-26 85-178/53-103 32-96 GENERAL: The patient is awake, alert, and fully oriented, in no acute distress. HEAD: Normal with no signs of trauma. EYES: PERRL, extraocular movements intact, sclera anicteric, conjunctiva clear. No ptosis. ENT: Ears normal, nares patent, oropharynx clear without exudates, moist mucous membranes. NECK: Trachea midline, full range of motion, supple. LUNGS: Breath sounds equal, clear to auscultation bilaterally, no wheezes, no crackles, no accessory muscle use. HEART: Regular rate and rhythm, S1, S2 without murmur, rub or gallop. ABDOMEN: Soft, nontender, nondistended, normoactive bowel sounds, no guarding, no rebound, no hepatosplenomegaly, no masses. EXTREMITIES: 2+ pulses, warm, well-perfused, no edema. NEUROLOGICAL: Cranial nerves II through XII grossly intact. Normal speech, gait not observed. PSYCH: Normal mood, normal affect. SKIN: Warm, dry, normal turgor, no rashes or lesions noted Laboratory Results - last 24 hr 10/28/16 10/28/16 10/28/16 17:45 17:45 22:40 WBC RBC Hgb Hct MCV MCH MCHC RDW Plt Count MPV Neutrophils % Lymphocytes % Monocytes % Eosinophils % Basophils % INR 1.30 H Sodium Potassium Chloride Carbon Dioxide Anion Gap BUN Creatinine POC Glucometer 168.49263 172.60404 Random Glucose Calcium Phosphorus Magnesium 10/29/16 10/29/16 10/29/16 05:15 05:15 06:44 WBC 17.0 H RBC 3.38 L Hgb 10.3 L Hct 30.8 L MCV 91.2 MCH 30.5 MCHC 33.4 RDW 14.9 Plt Count 303 D MPV 9.8 Neutrophils % 97.9 H Lymphocytes % 1.0 L D Monocytes % 0.9 L Eosinophils % 0.0 Basophils % 0.2 D INR Sodium 151 H Potassium 3.0 L Chloride 112 H Carbon Dioxide 31 Anion Gap 8 BUN 23 H D Creatinine 0.3 L D POC Glucometer 180.10466 Random Glucose 143 H D Calcium 8.4 L Phosphorus 1.9 L Magnesium 2.3 Active Medications Generic Name Dose Route Start Last Admin Trade Name Freq PRN Reason Stop Dose Admin Acetaminophen 650 mg 10/25/16 19:59 10/28/16 22:38 Tylenol - PO 650 mg Q4H PRN Administration FEVER OR PAIN Albuterol/Ipratropium 1 amp 10/26/16 00:00 10/29/16 11:00 Duoneb - NEB 1 amp QIDR [facility] Administration Bacitracin 1 applic 10/29/16 10:00 10/29/16 14:39 Bacitracin - TP 1 applic DAILY [facility] Administration Chlorhexidine Gluconate 1 applic 10/25/16 22:00 10/28/16 22:37 Hibiclens For Decolonization - TP 1 applic HS [facility] Administration Chlorhexidine Gluconate 15 ml 10/25/16 22:00 10/29/16 11:26 Peridex - MM 15 ml BID [facility] Administration Digoxin 0.125 mg 10/26/16 10:00 10/29/16 11:09 Lanoxin - PO 0.125 mg DAILY [facility] Administration Diltiazem HCl 10 mg 10/25/16 19:59 10/26/16 11:11 Cardizem Injection - IVPUSH 10 mg Q4H PRN Administration TACHYCARDIA Diltiazem HCl 30 mg 10/27/16 14:00 10/29/16 14:38 Cardizem - NGT 30 mg TID [facility] Administration Sodium Chloride 1,000 mls @ 42 mls/hr 10/25/16 19:59 10/28/16 22:38 Normal Saline - IV 42 mls/hr ASDIR [facility] Administration Vancomycin HCl 1,250 mg/ 250 mls @ 250 mls/hr 10/29/16 10:00 10/29/16 12:26 Dextrose IVPB 250 mls/hr BID [facility] Administration Protocol Ceftazidime 2 gm/ Dextrose 100 mls @ 200 mls/hr 10/29/16 10:00 10/29/16 11:20 IVPB 200 mls/hr Q8H-IV [facility] Administration Insulin Aspart 1 vial 10/25/16 22:00 10/29/16 12:16 Novolog Vial Sliding Scale - SQ Not Given ACHS [facility] Protocol Lidocaine HCl 1 applic 10/25/16 19:59 Xylocaine 2% Jelly TP Q4H PRN PAIN Methimazole 10 mg 10/26/16 10:00 10/29/16 11:52 Tapazole - NGT 10 mg DAILY [facility] Administration Methylprednisolone Sodium Succinate 40 mg 10/30/16 10:00 Solu-Medrol - IVPB DAILY [facility] Metoprolol Tartrate 50 mg 10/25/16 22:00 10/29/16 14:38 Lopressor - PO 50 mg TID [facility] Administration Metoprolol Tartrate 5 mg 10/26/16 15:00 10/26/16 19:21 Lopressor Injection - IVPUSH 5 mg Q6H-IV PRN Administration ANXIETY Mirtazapine 15 mg 10/26/16 10:00 10/29/16 11:09 Remeron - NGT 15 mg DAILY [facility] Administration Morphine Sulfate 2 mg 10/29/16 11:35 10/29/16 11:51 Morphine Injection - IVPUSH 2 mg Q4H PRN Administration PAIN Ranitidine HCl 150 mg 10/25/16 22:00 10/29/16 11:10 Zantac Oral Solution - NGT 150 mg BID [facility] Administration Scopolamine HBr 1 patch 10/26/16 19:15 10/26/16 19:23 Transderm-Scop - TD 1 patch Q72H [facility] Administration ASSESSMENT/PLAN: This is a 56 yr old F with PMH ALS, chronic hypercapnic resp failure, HTN, HLD, hyperthyroidism, goiter, intubated to ED via EMS due to resp arrest. In ED, pt had cardiac arrest (V tach) for 5 min, was resuscitated and stabilized, admitted to ICU. # Acute on chronic respiratory failure secondary to ALS -Trach completed (10/24/16) -s/p PEG (10/30/16) -Continue solumedrol 40mg IVPB qdaily, duonebs 1 amp PRN -Palliative on board # Fever secondary to PNA or UTI -Pt febrile last night Tmax 101, given Tylenol -Pt started on Ceftazidime 2gm, Vanco 1250mg IVPB (Today is Day 1) # Paroxysmal afib -Continue for rate control: -Cardizem 30 mg NGT TID -Lopressor injection 5 mg IVP q6 PRN -Cardiazem 10mg IVP Q4 PRN -Digoxin 0.125 mg PO daily -Lopressor 50mg PO TID -Resume Eliquis 5mg PO BID for anticoagulation in 24hrs, after PEG -Will continue to monitor #Hyperthyroidism -Continue Methimazole 10 mg via NGT #Major Depressive Disorder -Continue Remeron 15mg via NGT # s/p Cardiac arrest in ED possibly secondary to hypoxia-resolved -Troponins negative x2 -Echo: regional wall motion abnormalities can't be ruled out. When compared to Echo 10/10/16: no wall motion abnormalities #Possible atelectasis-resolved -CXR: opacification of L hemithorax with L mediastinal shift -pt clinically improved, CTA BL, no rhonchi, wheezes or crackles -Will f/u with additional CXR if condition does not improve #subtherapeutic INR- resolved # Diarrhea-resolved # Hypophosphatemia-resolved # Lactic acidosis secondary to cardiac arrest-resolved # Hypokalemia-resolved # Hypernatremia-resolved # Anxiety-resolved DVT prophylaxis SCD's Resume Eliquis 5mg BID 24hrs post PEG Stress ulcer prophylaxis -Continue Zantac 150 mg NGT BID F/E/N Monitor electrolytes s/p PEG, resume feeds when cleared by 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
--- NOTE | 2016-10-29 17:01 | PN ---
Teaching Attending Note Name of Resident: Andrew Velasquez ATTENDING PHYSICIAN STATEMENT I saw and evaluated the patient. I reviewed the resident's note and discussed the case with the resident. I agree with the resident's findings and plan as documented. SUBJECTIVE: Patient seen and examined in the ICU. Awake and interactive. Low grade temps noted. Seen by ID and recommendations noted. S/P PEG without incident. Intake & Output 10/26/16 10/27/16 10/28/16 10/29/16 23:59 23:59 23:59 23:59 Intake Total 1408 1918 2178 554 Output Total 950 1200 1040 500 Balance 847 676 8515 54 Weight 165 lb 1 oz 166 lb 3 oz 168 lb 1 oz 164 lb 14.492 oz Last Vital Signs Temp Pulse Resp BP Pulse Ox 100.0 F H 59 L 19 125/77 94 L 10/29/16 14:00 10/29/16 14:00 10/29/16 16:24 10/29/16 14:00 10/29/16 10:34 Active Medications Acetaminophen (Tylenol -) 650 mg PO Q4H PRN PRN Reason: FEVER OR PAIN Last Admin: 10/28/16 22:38 Dose: 650 mg Albuterol/Ipratropium (Duoneb -) 1 amp NEB QIDR [facility] Last Admin: 10/29/16 11:00 Dose: 1 amp Bacitracin (Bacitracin -) 1 applic TP DAILY [facility] Last Admin: 10/29/16 14:39 Dose: 1 applic Chlorhexidine Gluconate (Hibiclens For Decolonization -) 1 applic TP HS [facility] Last Admin: 10/28/16 22:37 Dose: 1 applic Chlorhexidine Gluconate (Peridex -) 15 ml MM BID [facility] Last Admin: 10/29/16 11:26 Dose: 15 ml Digoxin (Lanoxin -) 0.125 mg PO DAILY [facility] Last Admin: 10/29/16 11:09 Dose: 0.125 mg Diltiazem HCl (Cardizem Injection -) 10 mg IVPUSH Q4H PRN PRN Reason: TACHYCARDIA Last Admin: 10/26/16 11:11 Dose: 10 mg Diltiazem HCl (Cardizem -) 30 mg NGT TID [facility] Last Admin: 10/29/16 14:38 Dose: 30 mg Sodium Chloride (Normal Saline -) 1,000 mls @ 42 mls/hr IV ASDIR [facility] Last Admin: 10/28/16 22:38 Dose: 42 mls/hr Vancomycin HCl 1,250 mg/ (Dextrose) 250 mls @ 250 mls/hr IVPB BID [facility] PRN Reason: Protocol Last Admin: 10/29/16 12:26 Dose: 250 mls/hr Ceftazidime 2 gm/ Dextrose 100 mls @ 200 mls/hr IVPB Q8H-IV [facility] Last Admin: 10/29/16 11:20 Dose: 200 mls/hr Insulin Aspart (Novolog Vial Sliding Scale -) 1 vial SQ ACHS [facility] PRN Reason: Protocol Last Admin: 10/29/16 12:16 Dose: Not Given Lidocaine HCl (Xylocaine 2% Jelly) 1 applic TP Q4H PRN PRN Reason: PAIN Methimazole (Tapazole -) 10 mg NGT DAILY [facility] Last Admin: 10/29/16 11:52 Dose: 10 mg Methylprednisolone Sodium Succinate (Solu-Medrol -) 40 mg IVPB DAILY [facility] Metoprolol Tartrate (Lopressor -) 50 mg PO TID [facility] Last Admin: 10/29/16 14:38 Dose: 50 mg Metoprolol Tartrate (Lopressor Injection -) 5 mg IVPUSH Q6H-IV PRN PRN Reason: ANXIETY Last Admin: 10/26/16 19:21 Dose: 5 mg Mirtazapine (Remeron -) 15 mg NGT DAILY [facility] Last Admin: 10/29/16 11:09 Dose: 15 mg Morphine Sulfate (Morphine Injection -) 2 mg IVPUSH Q4H PRN PRN Reason: PAIN Last Admin: 10/29/16 11:51 Dose: 2 mg Ranitidine HCl (Zantac Oral Solution -) 150 mg NGT BID [facility] Last Admin: 10/29/16 11:10 Dose: 150 mg Scopolamine HBr (Transderm-Scop -) 1 patch TD Q72H [facility] Last Admin: 10/26/16 19:23 Dose: 1 patch Gen: Trached, vented, awake and responsive Heart: RRR Lung: decreased breath sounds at the bases Abd: soft, nontender Ext: no edema Laboratory Results - last 24 hr 10/28/16 10/28/16 10/28/16 17:45 17:45 22:40 WBC RBC Hgb Hct MCV MCH MCHC RDW Plt Count MPV Neutrophils % Lymphocytes % Monocytes % Eosinophils % Basophils % INR 1.30 H Sodium Potassium Chloride Carbon Dioxide Anion Gap BUN Creatinine POC Glucometer 168.53632 172.40101 Random Glucose Calcium Phosphorus Magnesium 10/29/16 10/29/16 10/29/16 05:15 05:15 06:44 WBC 17.0 H RBC 3.38 L Hgb 10.3 L Hct 30.8 L MCV 91.2 MCH 30.5 MCHC 33.4 RDW 14.9 Plt Count 303 D MPV 9.8 Neutrophils % 97.9 H Lymphocytes % 1.0 L D Monocytes % 0.9 L Eosinophils % 0.0 Basophils % 0.2 D INR Sodium 151 H Potassium 3.0 L Chloride 112 H Carbon Dioxide 31 Anion Gap 8 BUN 23 H D Creatinine 0.3 L D POC Glucometer 180.22636 Random Glucose 143 H D Calcium 8.4 L Phosphorus 1.9 L Magnesium 2.3 ASSESSMENT AND PLAN: S/P Trach due to failure to wean due to ALS Acute on Chronic Hypoxic and Hypercapneic Respiratory Failure s/p Cardiac Arrest likely from Respiratory Failure Pneumonia Sepsis Lactic Acidosis resolved Advanced ALS Paroxysmal Atrial Fibrillation with RVR HTN Hyperthyroidism - ABX per ID - rate control with metoprolol / cardizem - AC - PEG use when OK by GI - spontaneous breathing trials as tolerated (has not been tolerating thus far) - DVT/GI prophylaxis - Wean Medrol to off - Glycemic control - (?) LTAC Dr Grant Critical care time spent in reviewing chart, evaluating patient and formulating plan 35 min
[2016-10-29] MEDS: SCOPOLAMINE HYDROBROMIDE 1 PATCH PATCH.TD72 TD SCH (22:09)
[2016-10-29] MEDS: ACETAMINOPHEN 325 MG TABLET (FP) PO PRN (22:09)
[2016-10-29] MEDS: CHLORHEXIDINE GLUCONATE 4% CLEANSER FOR DECOLONIZATION TP SCH (22:10)
[2016-10-29] MEDS: SODIUM CHLORIDE 1,000 ML IV SCH (22:10)
[2016-10-30] MEDS: CEFTAZIDIME PENTAHYDRATE 2 GM in DEXTROSE 5%-WATER - 100 ML IVPB SCH ×3 (01:56→17:19)
[2016-10-30] MEDS: METOPROLOL TARTRATE 50 MG TABLET (FP) PO SCH ×3 (05:46→21:39)
[2016-10-30] MEDS: dilTIAZem HCL 30 MG TABLET (FP) NGT SCH ×3 (05:46→21:39)
[2016-10-30] MEDS: ALBUTEROL SO4 2.5/IPRATROPIUM 0.5 INH SOL 3 ML VIAL.NEB. NEB SCH ×4 (06:11→23:05)
[2016-10-30 06:38] LABS: MCH 30.3 pg (25.7-33.7); MEAN PLT VOLUME 9.9 fl (7.5-11.1); PLATELET COUNT 265 K/MM3 (134-434); RDW 15.2 % (11.6-15.6)
[2016-10-30] MEDS: INSULIN SLIDING SCALE (NOVOLOG) 1 VIAL SQ SCH ×4 (06:43→23:05)
[2016-10-30 07:20] LABS: ANION GAP 7 (8-16); BILIRUBIN,TOTAL 0.3 mg/dL (0.2-1.0); CO2 30 mmol/L (21-32); CREATININE 0.4 mg/dL (0.55-1.02); GLUCOSE,RANDOM 207 mg/dL (74-106); MAGNESIUM 1.9 mg/dL (1.8-2.4); PHOSPHOROUS 2.1 mg/dL (2.5-4.9); SGOT/AST 5 U/L (15-37); SGPT/ALT 14 U/L (12-78)
[2016-10-30 07:21] LABS: ALK PHOS 87 U/L (45-117)
--- NOTE | 2016-10-30 08:38 | PN ---
Progress Note (short form) - Note Progress Note: Laboratory Tests 10/30/16 10/30/16 05:15 05:15 WBC 14.0 H Hgb 9.2 L D Plt Count 265 Potassium 3.2 L Creatinine 0.4 L D Seen and examined in ICU Low grade fever, alert. TELE: NSR. IMP/PLAN: PAF, now in sinus -Resume Eliquis -Cont current meds (metoprolol, cardizem and dig) -Please call again as needed. Will sign off today. Problem List - Problems (1) Cardiac arrest Code(s): I46.9 - CARDIAC ARREST, CAUSE UNSPECIFIED (2) Pneumonia Code(s): J18.9 - PNEUMONIA, UNSPECIFIED ORGANISM Qualifiers: Pneumonia type: due to unspecified organism Laterality: left Lung location: upper lobe of lung Qualified Code(s): J18.1 - Lobar pneumonia, unspecified organism (3) Respiratory failure requiring intubation Code(s): J96.90 - RESPIRATORY FAILURE, UNSP, UNSP W HYPOXIA OR HYPERCAPNIA (4) ALS (amyotrophic lateral sclerosis) Code(s): G12.21 - AMYOTROPHIC LATERAL SCLEROSIS
[2016-10-30] MEDS ORDERED: PT OWN MED DRAWER 7, Y5N ONE ×2 (09:44→17:17)
[2016-10-30] MEDS: BACITRACIN 15 GM TUBE TOPICAL OINTMENT TP SCH (09:46)
[2016-10-30] MEDS: MIRTAZAPINE 15 MG TABLET (FP) NGT SCH (09:47)
[2016-10-30] MEDS: DIGOXIN 0.125 MG TABLET (FP) PO SCH (09:47)
[2016-10-30] MEDS: RANITIDINE HCL 150 MG/10 ML UNIT-DOSE CUP NGT SCH ×2 (09:48→21:39)
[2016-10-30] MEDS: CHLORHEXIDINE GLUCONATE 0.12% 15ML CUP MM SCH ×2 (09:48→21:39)
[2016-10-30] MEDS: METHIMAZOLE 10 MG TABLET (FP) NGT SCH (09:48)
[2016-10-30] MEDS ORDERED: methylPREDNISolone NA SUCC 40 MG/1 ML VIAL IVPB SCH (10:00)
[2016-10-30] MEDS: VANCOMYCIN 1,250 MG in DEXTROSE 5%-WATER - 250 ML IVPB SCH (10:51)
--- NOTE | 2016-10-30 12:20 | PN ---
Teaching Attending Note Name of Resident: Andrew Velasquez ATTENDING PHYSICIAN STATEMENT I saw and evaluated the patient. I reviewed the resident's note and discussed the case with the resident. I agree with the resident's findings and plan as documented. SUBJECTIVE: Patient seen and examined in the ICU. Awake and interactive. Low grade temps noted. Tolerating PEG feeds. Intake & Output 10/27/16 10/28/16 10/29/16 10/30/16 23:59 23:59 23:59 23:59 Intake Total 1918 2178 2080 1694 Output Total 1200 1040 500 Balance 718 1138 1580 1694 Weight 166 lb 3 oz 168 lb 1 oz 164 lb 14.492 oz 170 lb 4.8 oz Last Vital Signs Temp Pulse Resp BP Pulse Ox 99.8 F H 70 18 131/78 97 10/30/16 08:00 10/30/16 09:47 10/30/16 10:00 10/30/16 08:00 10/30/16 09:00 Active Medications Acetaminophen (Tylenol -) 650 mg PO Q4H PRN PRN Reason: FEVER OR PAIN Last Admin: 10/29/16 22:09 Dose: 650 mg Albuterol/Ipratropium (Duoneb -) 1 amp NEB QIDR [facility] Last Admin: 10/30/16 06:11 Dose: 1 amp Bacitracin (Bacitracin -) 1 applic TP DAILY [facility] Last Admin: 10/30/16 09:46 Dose: 1 applic Chlorhexidine Gluconate (Hibiclens For Decolonization -) 1 applic TP HS [facility] Last Admin: 10/29/16 22:10 Dose: 1 applic Chlorhexidine Gluconate (Peridex -) 15 ml MM BID [facility] Last Admin: 10/30/16 09:48 Dose: 15 ml Digoxin (Lanoxin -) 0.125 mg PO DAILY [facility] Last Admin: 10/30/16 09:47 Dose: 0.125 mg Diltiazem HCl (Cardizem Injection -) 10 mg IVPUSH Q4H PRN PRN Reason: TACHYCARDIA Last Admin: 10/26/16 11:11 Dose: 10 mg Diltiazem HCl (Cardizem -) 30 mg NGT TID [facility] Last Admin: 10/30/16 05:46 Dose: 30 mg Vancomycin HCl 1,250 mg/ (Dextrose) 250 mls @ 250 mls/hr IVPB BID [facility] PRN Reason: Protocol Last Admin: 10/30/16 10:51 Dose: 250 mls/hr Ceftazidime 2 gm/ Dextrose 100 mls @ 200 mls/hr IVPB Q8H-IV [facility] Last Admin: 10/30/16 09:47 Dose: 200 mls/hr Insulin Aspart (Novolog Vial Sliding Scale -) 1 vial SQ ACHS [facility] PRN Reason: Protocol Last Admin: 10/30/16 11:47 Dose: 2 units Lidocaine HCl (Xylocaine 2% Jelly) 1 applic TP Q4H PRN PRN Reason: PAIN Methimazole (Tapazole -) 10 mg NGT DAILY [facility] Last Admin: 10/30/16 09:48 Dose: 10 mg Methylprednisolone Sodium Succinate (Solu-Medrol -) 40 mg IVPB DAILY [facility] Last Admin: 10/30/16 09:48 Dose: 40 mg Metoprolol Tartrate (Lopressor -) 50 mg PO TID [facility] Last Admin: 10/30/16 05:46 Dose: 50 mg Metoprolol Tartrate (Lopressor Injection -) 5 mg IVPUSH Q6H-IV PRN PRN Reason: ANXIETY Last Admin: 10/26/16 19:21 Dose: 5 mg Mirtazapine (Remeron -) 15 mg NGT DAILY [facility] Last Admin: 10/30/16 09:47 Dose: 15 mg Morphine Sulfate (Morphine Injection -) 2 mg IVPUSH Q4H PRN PRN Reason: PAIN Last Admin: 10/29/16 11:51 Dose: 2 mg Ranitidine HCl (Zantac Oral Solution -) 150 mg NGT BID [facility] Last Admin: 10/30/16 09:48 Dose: 150 mg Scopolamine HBr (Transderm-Scop -) 1 patch TD Q72H [facility] Last Admin: 10/29/16 22:09 Dose: 1 patch Gen: Trached, vented, awake and responsive Heart: RRR Lung: decreased breath sounds at the bases Abd: soft, nontender Ext: no edema Laboratory Results - last 24 hr 10/29/16 10/29/16 10/29/16 12:09 18:46 22:06 WBC RBC Hgb Hct MCV MCH MCHC RDW Plt Count MPV Sodium Potassium Chloride Carbon Dioxide Anion Gap BUN Creatinine Creat Clearance w eGFR POC Glucometer 193.32463 180.24734 210.14382 Random Glucose Calcium Phosphorus Magnesium Total Bilirubin AST ALT Alkaline Phosphatase Total Protein Albumin 10/30/16 10/30/16 10/30/16 05:15 05:15 05:43 WBC 14.0 H RBC 3.03 L Hgb 9.2 L D Hct 27.9 L MCV 92.0 MCH 30.3 MCHC 33.0 RDW 15.2 Plt Count 265 MPV 9.9 Sodium 147 H Potassium 3.2 L Chloride 110 H Carbon Dioxide 30 Anion Gap 7 L BUN 22 H Creatinine 0.4 L D Creat Clearance w eGFR > 60 POC Glucometer [phone] Random Glucose 207 H D Calcium 8.0 L Phosphorus 2.1 L Magnesium 1.9 Total Bilirubin 0.3 AST 5 L D ALT 14 D Alkaline Phosphatase 87 D Total Protein 5.0 L D Albumin 2.0 L ASSESSMENT AND PLAN: S/P Trach due to failure to wean due to ALS Acute on Chronic Hypoxic and Hypercapneic Respiratory Failure s/p Cardiac Arrest likely from Respiratory Failure Pneumonia Sepsis Lactic Acidosis resolved Advanced ALS Paroxysmal Atrial Fibrillation with RVR HTN Hyperthyroidism - ABX per ID - rate control with metoprolol / cardizem - AC - PEG feeds as tolerated - spontaneous breathing trials as tolerated (has not been tolerating thus far) - DVT/GI prophylaxis - Wean Medrol to off - Glycemic control - Vent floor Dr Grant Critical care time spent in reviewing chart, evaluating patient and formulating plan 35 min
--- NOTE | 2016-10-30 14:10 | PN ---
Progress Note, Physician History of Present Illness: Febrile past 48hr Awake, alert No acute distress WBC remains slightly elevated Cultures pending - Current Medication List Current Medications: Active Medications Acetaminophen (Tylenol -) 650 mg PO Q4H PRN PRN Reason: FEVER OR PAIN Last Admin: 10/29/16 22:09 Dose: 650 mg Albuterol/Ipratropium (Duoneb -) 1 amp NEB QIDR [facility] Last Admin: 10/30/16 12:00 Dose: 1 amp Bacitracin (Bacitracin -) 1 applic TP DAILY [facility] Last Admin: 10/30/16 09:46 Dose: 1 applic Chlorhexidine Gluconate (Hibiclens For Decolonization -) 1 applic TP HS [facility] Last Admin: 10/29/16 22:10 Dose: 1 applic Chlorhexidine Gluconate (Peridex -) 15 ml MM BID [facility] Last Admin: 10/30/16 09:48 Dose: 15 ml Digoxin (Lanoxin -) 0.125 mg PO DAILY [facility] Last Admin: 10/30/16 09:47 Dose: 0.125 mg Diltiazem HCl (Cardizem Injection -) 10 mg IVPUSH Q4H PRN PRN Reason: TACHYCARDIA Last Admin: 10/26/16 11:11 Dose: 10 mg Diltiazem HCl (Cardizem -) 30 mg NGT TID [facility] Last Admin: 10/30/16 05:46 Dose: 30 mg Vancomycin HCl 1,250 mg/ (Dextrose) 250 mls @ 250 mls/hr IVPB BID [facility] PRN Reason: Protocol Last Admin: 10/30/16 10:51 Dose: 250 mls/hr Ceftazidime 2 gm/ Dextrose 100 mls @ 200 mls/hr IVPB Q8H-IV [facility] Last Admin: 10/30/16 09:47 Dose: 200 mls/hr Insulin Aspart (Novolog Vial Sliding Scale -) 1 vial SQ ACHS [facility] PRN Reason: Protocol Last Admin: 10/30/16 11:47 Dose: 2 units Lidocaine HCl (Xylocaine 2% Jelly) 1 applic TP Q4H PRN PRN Reason: PAIN Methimazole (Tapazole -) 10 mg NGT DAILY [facility] Last Admin: 10/30/16 09:48 Dose: 10 mg Methylprednisolone Sodium Succinate (Solu-Medrol -) 40 mg IVPB DAILY [facility] Last Admin: 10/30/16 09:48 Dose: 40 mg Metoprolol Tartrate (Lopressor -) 50 mg PO TID [facility] Last Admin: 10/30/16 05:46 Dose: 50 mg Metoprolol Tartrate (Lopressor Injection -) 5 mg IVPUSH Q6H-IV PRN PRN Reason: ANXIETY Last Admin: 10/26/16 19:21 Dose: 5 mg Mirtazapine (Remeron -) 15 mg NGT DAILY [facility] Last Admin: 10/30/16 09:47 Dose: 15 mg Morphine Sulfate (Morphine Injection -) 2 mg IVPUSH Q4H PRN PRN Reason: PAIN Last Admin: 10/29/16 11:51 Dose: 2 mg Ranitidine HCl (Zantac Oral Solution -) 150 mg NGT BID [facility] Last Admin: 10/30/16 09:48 Dose: 150 mg Scopolamine HBr (Transderm-Scop -) 1 patch TD Q72H [facility] Last Admin: 10/29/16 22:09 Dose: 1 patch - Objective Vital Signs: Vital Signs Temperature 99.8 F H 10/30/16 08:00 Pulse Rate 70 10/30/16 09:47 Respiratory Rate 22 10/30/16 12:20 Blood Pressure 131/78 10/30/16 08:00 O2 Sat by Pulse Oximetry (%) 97 10/30/16 09:00 Constitutional: Yes: No Distress Eyes: Yes: Conjunctiva Clear Cardiovascular: Yes: Regular Rate and Rhythm, S1, S2 Respiratory: Yes: Diminished Gastrointestinal: Yes: Normal Bowel Sounds, Soft. No: Tenderness Labs: CBC, BMP 10/30/16 05:15 10/30/16 05:15 INR, PTT INR 1.30 (0.82-1.09) H 10/28/16 17:45 Assessment/Plan Fever/ leukocytosis Respiratory failure Pneumonia/ atelectasis UTI ALS S/P cardiopulmonary arrest Await c/s CXR Continue vancomycin/ ceftazidime
--- NOTE | 2016-10-30 16:36 | PN ---
Physical Exam: SUBJECTIVE: Patient seen and examined. no new complaints. patient denies any pain. OBJECTIVE: Vital Signs Period Temp Pulse Resp BP Sys/Hatch Pulse Ox Last 24 Hr 99 F-100.6 F 64-91 14-22 116-159/23-92 97-98 GENERAL: The patient is awake, alert, on tracheostomy. HEAD: Normal with no signs of trauma. EYES: extraocular movements intact, sclera anicteric, conjunctiva clear. No ptosis. NECK: Trachea midline, full range of motion, supple. LUNGS: Breath sounds equal, clear to auscultation bilaterally, no wheezes, no crackles, no accessory muscle use. HEART: Regular rate and rhythm, S1, S2 without murmur, rub or gallop. ABDOMEN: Soft, nontender, nondistended, normoactive bowel sounds, no guarding, no rebound. NEUROLOGICAL: Cranial nerves II through X grossly intact. Normal speech, gait not observed. SKIN: Warm, dry, normal turgor, no rashes or lesions noted Laboratory Results - last 24 hr 10/29/16 10/29/16 10/29/16 12:09 18:46 22:06 WBC RBC Hgb Hct MCV MCH MCHC RDW Plt Count MPV Sodium Potassium Chloride Carbon Dioxide Anion Gap BUN Creatinine Creat Clearance w eGFR POC Glucometer [phone] 210.65282 Random Glucose Calcium Phosphorus Magnesium Total Bilirubin AST ALT Alkaline Phosphatase Total Protein Albumin 10/30/16 10/30/16 10/30/16 05:15 05:15 05:43 WBC 14.0 H RBC 3.03 L Hgb 9.2 L D Hct 27.9 L MCV 92.0 MCH 30.3 MCHC 33.0 RDW 15.2 Plt Count 265 MPV 9.9 Sodium 147 H Potassium 3.2 L Chloride 110 H Carbon Dioxide 30 Anion Gap 7 L BUN 22 H Creatinine 0.4 L D Creat Clearance w eGFR > 60 POC Glucometer [phone] Random Glucose 207 H D Calcium 8.0 L Phosphorus 2.1 L Magnesium 1.9 Total Bilirubin 0.3 AST 5 L D ALT 14 D Alkaline Phosphatase 87 D Total Protein 5.0 L D Albumin 2.0 L 10/30/16 11:46 WBC RBC Hgb Hct MCV MCH MCHC RDW Plt Count MPV Sodium Potassium Chloride Carbon Dioxide Anion Gap BUN Creatinine Creat Clearance w eGFR POC Glucometer 238.99352 Random Glucose Calcium Phosphorus Magnesium Total Bilirubin AST ALT Alkaline Phosphatase Total Protein Albumin Active Medications Generic Name Dose Route Start Last Admin Trade Name Freq PRN Reason Stop Dose Admin Acetaminophen 650 mg 10/25/16 19:59 10/29/16 22:09 Tylenol - PO 650 mg Q4H PRN Administration FEVER OR PAIN Albuterol/Ipratropium 1 amp 10/26/16 00:00 10/30/16 12:00 Duoneb - NEB 1 amp QIDR [facility] Administration Bacitracin 1 applic 10/29/16 10:00 10/30/16 09:46 Bacitracin - TP 1 applic DAILY [facility] Administration Chlorhexidine Gluconate 1 applic 10/25/16 22:00 10/29/16 22:10 Hibiclens For Decolonization - TP 1 applic HS [facility] Administration Chlorhexidine Gluconate 15 ml 10/25/16 22:00 10/30/16 09:48 Peridex - MM 15 ml BID [facility] Administration Digoxin 0.125 mg 10/26/16 10:00 10/30/16 09:47 Lanoxin - PO 0.125 mg DAILY [facility] Administration Diltiazem HCl 10 mg 10/25/16 19:59 10/26/16 11:11 Cardizem Injection - IVPUSH 10 mg Q4H PRN Administration TACHYCARDIA Diltiazem HCl 30 mg 10/27/16 14:00 10/30/16 14:34 Cardizem - NGT 30 mg TID [facility] Administration Vancomycin HCl 1,250 mg/ 250 mls @ 250 mls/hr 10/29/16 10:00 10/30/16 10:51 Dextrose IVPB 250 mls/hr BID [facility] Administration Protocol Ceftazidime 2 gm/ Dextrose 100 mls @ 200 mls/hr 10/29/16 10:00 10/30/16 09:47 IVPB 200 mls/hr Q8H-IV [facility] Administration Insulin Aspart 1 vial 10/25/16 22:00 10/30/16 11:47 Novolog Vial Sliding Scale - SQ 2 units ACHS [facility] Administration Protocol Lidocaine HCl 1 applic 10/25/16 19:59 Xylocaine 2% Jelly TP Q4H PRN PAIN Methimazole 10 mg 10/26/16 10:00 10/30/16 09:48 Tapazole - NGT 10 mg DAILY [facility] Administration Methylprednisolone Sodium Succinate 40 mg 10/30/16 10:00 10/30/16 09:48 Solu-Medrol - IVPB 40 mg DAILY [facility] Administration Metoprolol Tartrate 50 mg 10/25/16 22:00 10/30/16 14:34 Lopressor - PO 50 mg TID [facility] Administration Metoprolol Tartrate 5 mg 10/26/16 15:00 10/26/16 19:21 Lopressor Injection - IVPUSH 5 mg Q6H-IV PRN Administration ANXIETY Mirtazapine 15 mg 10/26/16 10:00 10/30/16 09:47 Remeron - NGT 15 mg DAILY [facility] Administration Morphine Sulfate 2 mg 10/29/16 11:35 10/29/16 11:51 Morphine Injection - IVPUSH 2 mg Q4H PRN Administration PAIN Potassium Phos/Sodium Phos 1 packet 10/30/16 22:00 Phos-Nak Packet - PO BID [facility] Ranitidine HCl 150 mg 10/25/16 22:00 10/30/16 09:48 Zantac Oral Solution - NGT 150 mg BID [facility] Administration Scopolamine HBr 1 patch 10/26/16 19:15 10/29/16 22:09 Transderm-Scop - TD 1 patch Q72H [facility] Administration ASSESSMENT/PLAN: 56 year old female with chronic respiratory failure and worsening ALS, paroxysmal atrial fibrillation with rapid ventricular response s/p surgical tracheostomy on 10/24/16. Neuro: -PMH ALS -frequent neurochecks -monitor respiratory function on trach -provide versed 2mg Q1 PRN for agitation Pulmonary -s/p trach 10/24 -saturating well -no increased work of breathing -Patient with low grade fever -CXR from today shows new atalectatic changes in the right lower lobe -BCx negative to date -ucx growing presumptive P. Aeruginosa -c/w Ceftazidime 2gm -c/w vancomycin 1.2 grams Cardiovascular: -PMhx of hypertension -BP controlled -c/w lopressor 50mg TID -PMH afib w/ rvr, rate controlled. -continue cardizem 30mg TID though PEG -consider digoxin push if rate uncontrolled on cardizem -continue eloquis 5mg for afib Abdominal: -s/p PEG -surgical site healing well -tolerating feeds well Endocrine: -PMH hyperthyroidism -c/w methimazole 10mg daily GI: s/p PEG tube -meds through tube -monitor for pain at PEG placemnent site; 2mg morphine Q4H PRN pain FEN: -no fluids indicated at this time -K 3.2, Phos 2.1; will replete -tube feeds Proph: -continue ranitidine Dispo: -stable to transfer to floor Problem List - Problems (1) Diastolic CHF Code(s): I50.30 - UNSPECIFIED DIASTOLIC (CONGESTIVE) HEART FAILURE (2) Pneumonia Code(s): J18.9 - PNEUMONIA, UNSPECIFIED ORGANISM Qualifiers: Pneumonia type: due to unspecified organism Laterality: left Lung location: upper lobe of lung Qualified Code(s): J18.1 - Lobar pneumonia, unspecified organism (3) Status post tracheostomy Code(s): Z93.0 - TRACHEOSTOMY STATUS (4) Status post insertion of percutaneous endoscopic gastrostomy (PEG) tube Code(s): Z93.1 - GASTROSTOMY STATUS Visit type - Emergency Visit Emergency Visit: Yes ED Registration Date: 10/15/16 Care time: The patient presented to the Emergency Department on the above date and was hospitalized for further evaluation of their emergent condition. - New Patient This patient is new to me today: No - Critical Care Critical Care patient: Yes Total Critical Care Time (in minutes): 35 Critical Care Statement: The care of this patient involved high complexity decision making to prevent further life threatening deterioration of the patient 's condition and/or to evalute & treat vital organ system(s) failure or risk of failure.
--- NOTE | 2016-10-30 16:45 | PN ---
Physical Exam: SUBJECTIVE: Patient seen and examined at bedside today. Pt interactive, in good spirits. Trach and PEG sites intact. OBJECTIVE: Vital Signs Period Temp Pulse Resp BP Sys/Hatch Pulse Ox Last 24 Hr 99 F-100.6 F 64-91 14-22 116-159/23-92 97-98 GENERAL: The patient is awake, alert, in no acute distress. HEAD: Normal with no signs of trauma. EYES: PERRL, extraocular movements intact, sclera anicteric, conjunctiva clear. NECK: Trach site intact LUNGS: Breath sounds equal, clear to auscultation bilaterally, no wheezes, no crackles, no accessory muscle use. HEART: Regular rate and rhythm, S1, S2 without murmur, rub or gallop. ABDOMEN: PEG site clean and intact. Mild abdominal tenderness elicited in RLQ, mid-epigastric region and suprapubically. No guarding. EXTREMITIES: 2+ posterior tibial pulses, warm, well-perfused, no edema appreciated. NEUROLOGICAL: difficult to assess, however pt's strength on handgrip 3/5. Laboratory Results - last 24 hr 10/29/16 10/29/16 10/29/16 12:09 18:46 22:06 WBC RBC Hgb Hct MCV MCH MCHC RDW Plt Count MPV Sodium Potassium Chloride Carbon Dioxide Anion Gap BUN Creatinine Creat Clearance w eGFR POC Glucometer 193.03167 180.22785 210.46419 Random Glucose Calcium Phosphorus Magnesium Total Bilirubin AST ALT Alkaline Phosphatase Total Protein Albumin 10/30/16 10/30/16 10/30/16 05:15 05:15 05:43 WBC 14.0 H RBC 3.03 L Hgb 9.2 L D Hct 27.9 L MCV 92.0 MCH 30.3 MCHC 33.0 RDW 15.2 Plt Count 265 MPV 9.9 Sodium 147 H Potassium 3.2 L Chloride 110 H Carbon Dioxide 30 Anion Gap 7 L BUN 22 H Creatinine 0.4 L D Creat Clearance w eGFR > 60 POC Glucometer 238.31919 Random Glucose 207 H D Calcium 8.0 L Phosphorus 2.1 L Magnesium 1.9 Total Bilirubin 0.3 AST 5 L D ALT 14 D Alkaline Phosphatase 87 D Total Protein 5.0 L D Albumin 2.0 L 10/30/16 11:46 WBC RBC Hgb Hct MCV MCH MCHC RDW Plt Count MPV Sodium Potassium Chloride Carbon Dioxide Anion Gap BUN Creatinine Creat Clearance w eGFR POC Glucometer [phone] Random Glucose Calcium Phosphorus Magnesium Total Bilirubin AST ALT Alkaline Phosphatase Total Protein Albumin Active Medications Generic Name Dose Route Start Last Admin Trade Name Freq PRN Reason Stop Dose Admin Acetaminophen 650 mg 10/25/16 19:59 10/29/16 22:09 Tylenol - PO 650 mg Q4H PRN Administration FEVER OR PAIN Albuterol/Ipratropium 1 amp 10/26/16 00:00 10/30/16 12:00 Duoneb - NEB 1 amp QIDR [facility] Administration Bacitracin 1 applic 10/29/16 10:00 10/30/16 09:46 Bacitracin - TP 1 applic DAILY [facility] Administration Chlorhexidine Gluconate 1 applic 10/25/16 22:00 10/29/16 22:10 Hibiclens For Decolonization - TP 1 applic HS [facility] Administration Chlorhexidine Gluconate 15 ml 10/25/16 22:00 10/30/16 09:48 Peridex - MM 15 ml BID [facility] Administration Digoxin 0.125 mg 10/26/16 10:00 10/30/16 09:47 Lanoxin - PO 0.125 mg DAILY [facility] Administration Diltiazem HCl 10 mg 10/25/16 19:59 10/26/16 11:11 Cardizem Injection - IVPUSH 10 mg Q4H PRN Administration TACHYCARDIA Diltiazem HCl 30 mg 10/27/16 14:00 10/30/16 14:34 Cardizem - NGT 30 mg TID [facility] Administration Vancomycin HCl 1,250 mg/ 250 mls @ 250 mls/hr 10/29/16 10:00 10/30/16 10:51 Dextrose IVPB 250 mls/hr BID [facility] Administration Protocol Ceftazidime 2 gm/ Dextrose 100 mls @ 200 mls/hr 10/29/16 10:00 10/30/16 09:47 IVPB 200 mls/hr Q8H-IV [facility] Administration Insulin Aspart 1 vial 10/25/16 22:00 10/30/16 11:47 Novolog Vial Sliding Scale - SQ 2 units ACHS [facility] Administration Protocol Lidocaine HCl 1 applic 10/25/16 19:59 Xylocaine 2% Jelly TP Q4H PRN PAIN Methimazole 10 mg 10/26/16 10:00 10/30/16 09:48 Tapazole - NGT 10 mg DAILY [facility] Administration Methylprednisolone Sodium Succinate 40 mg 10/30/16 10:00 10/30/16 09:48 Solu-Medrol - IVPB 40 mg DAILY [facility] Administration Metoprolol Tartrate 50 mg 10/25/16 22:00 10/30/16 14:34 Lopressor - PO 50 mg TID [facility] Administration Metoprolol Tartrate 5 mg 10/26/16 15:00 10/26/16 19:21 Lopressor Injection - IVPUSH 5 mg Q6H-IV PRN Administration ANXIETY Mirtazapine 15 mg 10/26/16 10:00 10/30/16 09:47 Remeron - NGT 15 mg DAILY [facility] Administration Morphine Sulfate 2 mg 10/29/16 11:35 10/29/16 11:51 Morphine Injection - IVPUSH 2 mg Q4H PRN Administration PAIN Potassium Phos/Sodium Phos 1 packet 10/30/16 22:00 Phos-Nak Packet - PO BID [facility] Ranitidine HCl 150 mg 10/25/16 22:00 10/30/16 09:48 Zantac Oral Solution - NGT 150 mg BID [facility] Administration Scopolamine HBr 1 patch 10/26/16 19:15 10/29/16 22:09 Transderm-Scop - TD 1 patch Q72H [facility] Administration ASSESSMENT/PLAN: This is a 56 yr old F with PMH ALS, chronic hypercapnic resp failure, HTN, HLD, hyperthyroidism, goiter, intubated to ED via EMS due to resp arrest. In ED, pt had cardiac arrest (V tach) for 5 min, was resuscitated and stabilized, admitted to ICU. # Acute on chronic respiratory failure secondary to ALS -Trach completed (10/24/16) -s/p PEG (10/30/16) -Continue solumedrol 40mg IVPB qdaily, duonebs 1 amp PRN -Palliative on board # Fever secondary to PNA or UTI -Pt febrile last night Tmax 100.6 -Pt started on Ceftazidime 2gm, Vanco 1250mg IVPB (Today is Day 2) -Blood cx (10/29/16): no growth -Urine cx (10/29/16): Pseudomonas # Paroxysmal afib -Continue for rate control: -Cardizem 30 mg NGT TID -Lopressor injection 5 mg IVP q6 PRN -Cardiazem 10mg IVP Q4 PRN -Digoxin 0.125 mg PO daily -Lopressor 50mg PO TID -Resume Eliquis 5mg PO BID for anticoagulation -Will continue to monitor #Hyperthyroidism -Continue Methimazole 10 mg via NGT #Major Depressive Disorder -Continue Remeron 15mg via NGT # s/p Cardiac arrest in ED possibly secondary to hypoxia-resolved -Troponins negative x2 -Echo: regional wall motion abnormalities can't be ruled out. When compared to Echo 10/10/16: no wall motion abnormalities #Possible atelectasis-resolved #subtherapeutic INR- resolved # Diarrhea-resolved # Hypophosphatemia-resolved # Lactic acidosis secondary to cardiac arrest-resolved # Hypokalemia-resolved # Hypernatremia-resolved # Anxiety-resolved DVT prophylaxis SCD's Resume Eliquis 5mg BID 24hrs post PEG Stress ulcer prophylaxis -Continue Zantac 150 mg NGT BID F/E/N Monitor electrolytes s/p PEG, feeds have been resumed [facility] Visit type - Emergency Visit Emergency Visit: No - New Patient This patient is new to me today: No - Critical Care Critical Care patient: Yes Total Critical Care Time (in minutes): 32 Critical Care Statement: The care of this patient involved high complexity decision making to prevent further life threatening deterioration of the patient 's condition and/or to evalute & treat vital organ system(s) failure or risk of failure.
[2016-10-30] MEDS ORDERED: METOPROLOL TARTRATE 5 MG/5 ML VIAL IVPUSH PRN (17:00)
[2016-10-30] MEDS ORDERED: morphine CARPU-JECT 2 MG/1 ML DISP.SYRIN IVPUSH PRN (17:00)
[2016-10-30] MEDS ORDERED: LIDOCAINE HCL 2% JELLY (30 ML/TUBE) TP PRN (17:00)
[2016-10-30] MEDS: ACETAMINOPHEN 325 MG TABLET (FP) PO PRN (17:19)
--- NOTE | 2016-10-30 18:15 | PN ---
Teaching Attending Note Name of Resident: Manjula Delvalle ATTENDING PHYSICIAN STATEMENT I saw and evaluated the patient. I reviewed the resident's note and discussed the case with the resident. I agree with the resident's findings and plan as documented. SUBJECTIVE:resting comfortable. shakes head yes to abdominal pain. denies CP, SOB OBJECTIVE: Last Vital Signs Temp Pulse Resp BP Pulse Ox 100.2 F H 63 18 140/80 97 10/30/16 18:00 10/30/16 18:00 10/30/16 18:00 10/30/16 18:00 10/30/16 09:00 General NAD, shakes head yes/no on questioning CV S1 S2 + no murmur Lungs CTA B/L anteriorly Abdomen soft mildly tender around PEG site which is clean and dry, no ulceration noted Extremities no pedal edema ASSESSMENT AND PLAN: 56-year-old woman with a history of ALS, chronic hypercapnic respiratory failure , HTN, hyperthyroidism, atrial fib, hyperlipidemia who was brought in to the ER after being intubated by EMS for acute respiratory distress and subsequently had cardiac arrest in the ER. 1. s/p cardiac arrest, secondary to hypoxia vs electrolyte abnormality 2. Acute on chronic hypoxic and hypercapnic respiratory failure- due to progression of ALS. has failed daily CPAP trials and trach on 10/25. continues to fail cpap trials. will need aggressive trials for chance of recovery of pulmonary function. cont trials per pulmonary. solumedrol 40mg daily. taper per pulmonary 3. dysphagia- s/p PEG placement 10/29. tolerated PEG feeds. cont to monitor 4. Intermittent fevers- PNA vs UTI. cont to have intermittent low grade fevers. on Vanco/Ceftazidime. check vanco level prior to 4th dose. ID on board. f/u official Cx 5. Hypokalemia- KCl 10meq x3 6. Hypophosphatemia- Kphos 7. HTN Continue Cardizem, Lopressor 8. Paroxysmal atrial fibrillation/flutter with RVR- rate controlled. will start eliquis today. was on hold for PEG placement. 9. Hyperlipidemia 10. Hyperglycemia-likely steroid induced A1c 4.3. will cont to cover with iss. 11. Depression- Continue Remeron 12. ALS 13. DVT prophylaxis- On Eliquis 14. would benefit from transfer to LTAC facility as will likely be difficult to wean off full vent support. has failed multiple cpap trials and needs aggressive vent management that would be provided at LTAC facility CC TIME 45 minutes. The care of this patient involved high complexity decision making to prevent further life threatening deterioration of the patient's condition and/or to evalute & treat vital organ system(s) failure or risk of failure.
[2016-10-30] MEDS: NAPH,MB-DB/K PH,MBDB POWDER PACKET PO SCH (21:39)
[2016-10-30] MEDS: CHLORHEXIDINE GLUCONATE 4% CLEANSER FOR DECOLONIZATION TP SCH (21:39)
[2016-10-30] MEDS ORDERED: VANCOMYCIN 1,250 MG in DEXTROSE 5%-WATER - 250 ML IVPB SCH (22:00)
[2016-10-31] MEDS: CEFTAZIDIME PENTAHYDRATE 2 GM in DEXTROSE 5%-WATER - 100 ML IVPB SCH ×3 (02:35→18:13)
[2016-10-31] MEDS: METOPROLOL TARTRATE 50 MG TABLET (FP) PO SCH ×3 (06:24→21:40)
[2016-10-31] MEDS: dilTIAZem HCL 30 MG TABLET (FP) NGT SCH ×3 (06:24→21:40)
[2016-10-31] MEDS: ALBUTEROL SO4 2.5/IPRATROPIUM 0.5 INH SOL 3 ML VIAL.NEB. NEB SCH ×3 (06:27→17:25)
[2016-10-31] MEDS: INSULIN SLIDING SCALE (NOVOLOG) 1 VIAL SQ SCH ×4 (06:38→22:00)
[2016-10-31 06:55] LABS: MCH 29.7 pg (25.7-33.7); MCHC 32.5 g/dl (32.0-36.0); MEAN CELL VOLUME 91.3 fl (80-96); MEAN PLT VOLUME 9.5 fl (7.5-11.1); PLATELET COUNT 224 K/MM3 (134-434); RDW 14.8 % (11.6-15.6); WHITE BLOOD COUNT 14.7 K/mm3 (4.0-10.0)
--- NOTE | 2016-10-31 07:16 | PN ---
Progress Note, Physician Chief Complaint: ID Remains stable Vancomycin and Ceftazidime for fever ? pneumonia related Steroids tapered Essentially same low grade temps she has had right along - Current Medication List Current Medications: Active Medications Acetaminophen (Tylenol -) 650 mg PO Q4H PRN PRN Reason: FEVER OR PAIN Last Admin: 10/30/16 17:19 Dose: 650 mg Albuterol/Ipratropium (Duoneb -) 1 amp NEB QIDR [facility] Last Admin: 10/31/16 06:27 Dose: 1 amp Bacitracin (Bacitracin -) 1 applic TP DAILY [facility] Chlorhexidine Gluconate (Peridex -) 15 ml MM BID [facility] Last Admin: 10/30/16 21:39 Dose: 15 ml Chlorhexidine Gluconate (Hibiclens For Decolonization -) 1 applic TP HS [facility] Last Admin: 10/30/16 21:39 Dose: 1 applic Digoxin (Lanoxin -) 0.125 mg PO DAILY [facility] Diltiazem HCl (Cardizem -) 30 mg NGT TID [facility] Last Admin: 10/31/16 06:24 Dose: 30 mg Ceftazidime 2 gm/ Dextrose 100 mls @ 200 mls/hr IVPB Q8H-IV [facility] Last Admin: 10/31/16 02:35 Dose: 200 mls/hr Vancomycin HCl 1,250 mg/ (Dextrose) 250 mls @ 250 mls/hr IVPB BID [facility] PRN Reason: Protocol Last Admin: 10/30/16 21:41 Dose: 250 mls/hr Insulin Aspart (Novolog Vial Sliding Scale -) 1 vial SQ ACHS [facility] PRN Reason: Protocol Last Admin: 10/31/16 06:38 Dose: 2 units Lidocaine HCl (Xylocaine 2% Jelly) 1 applic TP Q4H PRN PRN Reason: PAIN Methimazole (Tapazole -) 10 mg NGT DAILY [facility] Methylprednisolone Sodium Succinate (Solu-Medrol -) 40 mg IVPB DAILY [facility] Metoprolol Tartrate (Lopressor Injection -) 5 mg IVPUSH Q6H-IV PRN PRN Reason: ANXIETY Last Admin: 10/30/16 20:30 Dose: 5 mg Metoprolol Tartrate (Lopressor -) 50 mg PO TID [facility] Last Admin: 10/31/16 06:24 Dose: 50 mg Mirtazapine (Remeron -) 15 mg NGT DAILY [facility] Morphine Sulfate (Morphine Injection -) 2 mg IVPUSH Q4H PRN PRN Reason: PAIN Last Admin: 10/30/16 20:30 Dose: 2 mg Potassium Phos/Sodium Phos (Phos-Nak Packet -) 1 packet PO BID [facility] Last Admin: 10/30/16 21:39 Dose: 1 packet Ranitidine HCl (Zantac Oral Solution -) 150 mg NGT BID [facility] Last Admin: 10/30/16 21:39 Dose: 150 mg Scopolamine HBr (Transderm-Scop -) 1 patch TD Q72H [facility] - Objective Vital Signs: Vital Signs Temperature 99.6 F 10/31/16 06:00 Pulse Rate 67 10/31/16 06:00 Respiratory Rate 14 10/31/16 06:00 Blood Pressure 150/92 10/31/16 06:00 O2 Sat by Pulse Oximetry (%) 100 10/30/16 20:06 Constitutional: Yes: No Distress Neck: Yes: Other (Trach) Cardiovascular: Yes: Regular Rate and Rhythm, S1, S2. No: Murmur Respiratory: Yes: WNL, Regular, CTA Bilaterally Gastrointestinal: Yes: WNL, Normal Bowel Sounds, Soft. No: Other (PEG tube new) Edema: No Labs: INR, PTT INR 1.30 (0.82-1.09) H 10/28/16 17:45 Problem List - Problems (1) ALS (amyotrophic lateral sclerosis) Code(s): G12.21 - AMYOTROPHIC LATERAL SCLEROSIS (2) Cardiac arrest Code(s): I46.9 - CARDIAC ARREST, CAUSE UNSPECIFIED (3) Respiratory failure requiring intubation Code(s): J96.90 - RESPIRATORY FAILURE, UNSP, UNSP W HYPOXIA OR HYPERCAPNIA (4) Fever Code(s): R50.9 - FEVER, UNSPECIFIED Assessment/Plan Microbiology 10/29/16 09:00 Sputum - Endotrachea Suction/Ventilator Gram Stain - Final 10/29/16 10:12 Blood - Peripheral Venous Blood Culture - Preliminary NO GROWTH OBTAINED AFTER 24 HOURS, INCUBATION TO CONTINUE FOR 4 DAYS. 10/29/16 09:45 Blood - Peripheral Venous Blood Culture - Preliminary NO GROWTH OBTAINED AFTER 24 HOURS, INCUBATION TO CONTINUE FOR 4 DAYS. 10/29/16 09:00 Urine - Urine Carrillo Urine Culture - Preliminary Presumptive Ps Aeruginosa 10/29/16 09:00 Sputum - Endotrachea Suction/Ventilator Sputum Culture - Preliminary Lactose Fermenting Neg Bacilli Presumptive Ps Aeruginosa Yeast Like Organism Laboratory Tests 10/30/16 10/31/16 05:15 05:20 WBC 14.0 H Pending Hgb 9.2 L D Pending Hct 27.9 L Pending Plt Count 265 Pending Assessment ALS Respiratory failure with trach vent dependent S/P cardiac arrest Opacified left hemithorax Pseudomonas ? colonization with yeast and other GNB LF Plan Can stop vancomycin Continue Ceftazidime Add fluconazole 100mg day fungal coverage Margot LOVELACE
[2016-10-31 07:21] LABS: ANION GAP 5 (8-16); CO2 33 mmol/L (21-32); CREATININE 0.3 mg/dL (0.55-1.02); GLUCOSE,RANDOM 194 mg/dL (74-106); PHOSPHOROUS 1.9 mg/dL (2.5-4.9)
[2016-10-31] MEDS ORDERED: PT OWN MED DRAWER 7, Y5N ONE ×2 (09:49→18:12)
[2016-10-31] MEDS ORDERED: methylPREDNISolone NA SUCC 40 MG/1 ML VIAL IVPB SCH (10:00)
[2016-10-31] MEDS: DIGOXIN 0.125 MG TABLET (FP) PO SCH (10:41)
[2016-10-31] MEDS: MIRTAZAPINE 15 MG TABLET (FP) NGT SCH (10:41)
[2016-10-31] MEDS: CHLORHEXIDINE GLUCONATE 0.12% 15ML CUP MM SCH ×2 (10:45→21:40)
[2016-10-31] MEDS: NAPH,MB-DB/K PH,MBDB POWDER PACKET PO SCH ×2 (10:45→21:40)
[2016-10-31] MEDS: METHIMAZOLE 10 MG TABLET (FP) NGT SCH (10:47)
[2016-10-31] MEDS: RANITIDINE HCL 150 MG/10 ML UNIT-DOSE CUP NGT SCH ×2 (10:47→21:40)
[2016-10-31] MEDS ORDERED: POTASSIUM CHLORIDE ORAL LIQUID 20 MEQ/15 ML PEG ONE ×2 (11:38→11:45)
--- NOTE | 2016-10-31 12:24 | PN ---
Teaching Attending Note Name of Resident: Andrew Velasquez ATTENDING PHYSICIAN STATEMENT I saw and evaluated the patient. I reviewed the resident's note and discussed the case with the resident. I agree with the resident's findings and plan as documented. SUBJECTIVE: Patient seen and examined in the ICU. Awake and interactive. Low grade temps noted (overall improved). Tolerating PEG feeds. Intake & Output 10/28/16 10/29/16 10/30/16 10/31/16 23:59 23:59 23:59 23:59 Intake Total 2178 2080 3438 900 Output Total 1040 500 Balance 1138 1580 3438 900 Weight 168 lb 1 oz 164 lb 14.492 oz 170 lb 4.8 oz 170 lb 6 oz Last Vital Signs Temp Pulse Resp BP Pulse Ox 99.6 F 70 19 150/79 93 L 10/31/16 10:00 10/31/16 10:41 10/31/16 10:15 10/31/16 10:00 10/31/16 10:15 Active Medications Acetaminophen (Tylenol -) 650 mg PO Q4H PRN PRN Reason: FEVER OR PAIN Last Admin: 10/30/16 17:19 Dose: 650 mg Albuterol/Ipratropium (Duoneb -) 1 amp NEB QIDR [facility] Last Admin: 10/31/16 06:27 Dose: 1 amp Bacitracin (Bacitracin -) 1 applic TP DAILY [facility] Chlorhexidine Gluconate (Peridex -) 15 ml MM BID [facility] Last Admin: 10/31/16 10:45 Dose: 15 ml Chlorhexidine Gluconate (Hibiclens For Decolonization -) 1 applic TP HS [facility] Last Admin: 10/30/16 21:39 Dose: 1 applic Digoxin (Lanoxin -) 0.125 mg PO DAILY [facility] Last Admin: 10/31/16 10:41 Dose: 0.125 mg Diltiazem HCl (Cardizem -) 30 mg NGT TID [facility] Last Admin: 10/31/16 06:24 Dose: 30 mg Ceftazidime 2 gm/ Dextrose 100 mls @ 200 mls/hr IVPB Q8H-IV [facility] Last Admin: 10/31/16 10:59 Dose: 200 mls/hr Fluconazole (Diflucan 100 Mg/Ns Premixed Ivpb -) 50 mls @ 50 mls/hr IVPB DAILY [facility] Insulin Aspart (Novolog Vial Sliding Scale -) 1 vial SQ ACHS [facility] PRN Reason: Protocol Last Admin: 10/31/16 06:38 Dose: 2 units Lidocaine HCl (Xylocaine 2% Jelly) 1 applic TP Q4H PRN PRN Reason: PAIN Methimazole (Tapazole -) 10 mg NGT DAILY [facility] Last Admin: 10/31/16 10:47 Dose: 10 mg Methylprednisolone Sodium Succinate (Solu-Medrol -) 40 mg IVPB DAILY [facility] Last Admin: 10/31/16 10:40 Dose: 40 mg Metoprolol Tartrate (Lopressor Injection -) 5 mg IVPUSH Q6H-IV PRN PRN Reason: ANXIETY Last Admin: 10/30/16 20:30 Dose: 5 mg Metoprolol Tartrate (Lopressor -) 50 mg PO TID [facility] Last Admin: 10/31/16 06:24 Dose: 50 mg Mirtazapine (Remeron -) 15 mg NGT DAILY [facility] Last Admin: 10/31/16 10:41 Dose: 15 mg Morphine Sulfate (Morphine Injection -) 2 mg IVPUSH Q4H PRN PRN Reason: PAIN Last Admin: 10/30/16 20:30 Dose: 2 mg Potassium Phos/Sodium Phos (Phos-Nak Packet -) 1 packet PO BID [facility] Last Admin: 10/31/16 10:45 Dose: 1 packet Ranitidine HCl (Zantac Oral Solution -) 150 mg NGT BID [facility] Last Admin: 10/31/16 10:47 Dose: 150 mg Scopolamine HBr (Transderm-Scop -) 1 patch TD Q72H [facility] Gen: Trached, vented, awake and responsive Heart: RRR Lung: decreased breath sounds at the bases Abd: soft, nontender Ext: no edema Laboratory Results - last 24 hr 10/30/16 10/30/16 10/30/16 11:46 16:48 22:57 WBC RBC Hgb Hct MCV MCH MCHC RDW Plt Count MPV Sodium Potassium Chloride Carbon Dioxide Anion Gap BUN Creatinine POC Glucometer 238.84960 270.33087 232.40418 Random Glucose Calcium Phosphorus 10/31/16 10/31/16 10/31/16 05:20 05:20 06:37 WBC 14.7 H RBC 3.09 L Hgb 9.2 L Hct 28.2 L MCV 91.3 MCH 29.7 MCHC 32.5 RDW 14.8 Plt Count 224 MPV 9.5 Sodium 144 Potassium 3.4 L Chloride 106 Carbon Dioxide 33 H Anion Gap 5 L BUN 20 H Creatinine 0.3 L D POC Glucometer 224.09418 Random Glucose 194 H Calcium 8.0 L Phosphorus 1.9 L 10/31/16 11:05 WBC RBC Hgb Hct MCV MCH MCHC RDW Plt Count MPV Sodium Potassium Chloride Carbon Dioxide Anion Gap BUN Creatinine POC Glucometer 149.52542 Random Glucose Calcium Phosphorus ASSESSMENT AND PLAN: S/P Trach due to failure to wean due to ALS Acute on Chronic Hypoxic and Hypercapneic Respiratory Failure s/p Cardiac Arrest likely from Respiratory Failure Pneumonia Sepsis Lactic Acidosis resolved Advanced ALS Paroxysmal Atrial Fibrillation with RVR HTN Hyperthyroidism - ABX per ID - rate control with metoprolol / cardizem - AC - PEG feeds as tolerated - spontaneous breathing trials as tolerated (has not been tolerating thus far) - DVT/GI prophylaxis - Wean Medrol to off - Glycemic control - Vent floor Dr Grant
[2016-10-31] MEDS: FLUCONAZOLE 100 MG/NS 50 ML IVPB SCH (14:19)
--- NOTE | 2016-10-31 15:37 | PN ---
Teaching Attending Note Name of Resident: Manjula Delvalle ATTENDING PHYSICIAN STATEMENT I saw and evaluated the patient. I reviewed the resident's note and discussed the case with the resident. I agree with the resident's findings and plan as documented. SUBJECTIVE:mild tachypnic. clear secretions suctioned from trach and oropharynx. tachypnea resolved after OBJECTIVE: Last Vital Signs Temp Pulse Resp BP Pulse Ox 99.9 F H 65 21 153/92 93 L 10/31/16 14:00 10/31/16 14:00 10/31/16 14:00 10/31/16 14:00 10/31/16 10:15 General NAD, shakes head yes/no on questioning CV S1 S2 + no murmur Lungs CTA B/L anteriorly Abdomen soft mildly tender around PEG site which is clean and dry, no ulceration noted Extremities no pedal edema ASSESSMENT AND PLAN: 56-year-old woman with a history of ALS, chronic hypercapnic respiratory failure , HTN, hyperthyroidism, atrial fib, hyperlipidemia who was brought in to the ER after being intubated by EMS for acute respiratory distress and subsequently had cardiac arrest in the ER. 1. s/p cardiac arrest, secondary to hypoxia vs electrolyte abnormality 2. Acute on chronic hypoxic and hypercapnic respiratory failure- due to progression of ALS. has failed daily CPAP trials and trach on 10/25. continues to fail cpap trials. will need aggressive trials for chance of recovery of pulmonary function. cont trials per pulmonary. solumedrol 40mg daily. taper per pulmonary. having copious secretions, chest PT and close monitoring as pt is unable to suction herself. will hold off on scopolamine patch as concern for risk of mucous plugging. 3. dysphagia- s/p PEG placement 10/29. tolerated PEG feeds. cont to monitor 4. Intermittent fevers- PNA vs UTI. cont to have intermittent low grade fevers. on Vanco/Ceftazidime. check vanco level prior to 4th dose. ID on board. f/u official Cx 5. Hypokalemia- KCl 10meq x3 6. Hypophosphatemia- Kphos 7. HTN Continue Cardizem, Lopressor 8. Paroxysmal atrial fibrillation/flutter with RVR- rate controlled. will start eliquis today. was on hold for PEG placement. 9. Hyperlipidemia 10. Hyperglycemia-likely steroid induced A1c 4.3. will cont to cover with iss. 11. Depression- Continue Remeron 12. ALS 13. DVT prophylaxis- On Eliquis 14. would benefit from transfer to LTAC facility as will likely be difficult to wean off full vent support. has failed multiple cpap trials and needs aggressive vent management that would be provided at LTAC facility CC TIME 40 minutes. The care of this patient involved high complexity decision making to prevent further life threatening deterioration of the patient's condition and/or to evalute & treat vital organ system(s) failure or risk of failure.
[2016-10-31] MEDS: BACITRACIN 15 GM TUBE TOPICAL OINTMENT TP SCH (16:02)
--- NOTE | 2016-10-31 16:26 | PN ---
Physical Exam: SUBJECTIVE: Patient seen and examined. She seems more lethargic today, continues to complain of abdominal pain as well as pain at the PEG site. Patient endorses control of pain with current medications. OBJECTIVE: Vital Signs Period Temp Pulse Resp BP Sys/Hatch Pulse Ox Last 24 Hr 99.6 F-100.2 F 58-126 14-25 127-157/57-95 93-100 GENERAL: The patient is awake and alert on vent in no acute distress. HEAD: Normal with no signs of trauma. EYES: PERRL, extraocular movements intact, sclera anicteric, conjunctiva clear. No ptosis. NECK: Trachea midline, Trach in place. LUNGS: Breath sounds equal, clear to auscultation bilaterally, no wheezes, no crackles, no accessory muscle use. HEART: Regular rate and rhythm, S1, S2 without murmur, rub or gallop. ABDOMEN: Soft, tender to palpation in upper quadrants, nondistended, normoactive bowel sounds, no guarding, no rebound. NEUROLOGICAL: Cranial nerves II through X grossly intact. Cannot assess speech due to trach. gait not observed. SKIN: Warm, dry, normal turgor, no rashes or lesions noted Laboratory Results - last 24 hr 10/30/16 10/30/16 10/31/16 16:48 22:57 05:20 WBC 14.7 H RBC 3.09 L Hgb 9.2 L Hct 28.2 L MCV 91.3 MCH 29.7 MCHC 32.5 RDW 14.8 Plt Count 224 MPV 9.5 Sodium Potassium Chloride Carbon Dioxide Anion Gap BUN Creatinine POC Glucometer 270.97777 232.65876 Random Glucose Calcium Phosphorus 10/31/16 10/31/16 10/31/16 05:20 06:37 11:05 WBC RBC Hgb Hct MCV MCH MCHC RDW Plt Count MPV Sodium 144 Potassium 3.4 L Chloride 106 Carbon Dioxide 33 H Anion Gap 5 L BUN 20 H Creatinine 0.3 L D POC Glucometer 224.48275 149.20126 Random Glucose 194 H Calcium 8.0 L Phosphorus 1.9 L Active Medications Generic Name Dose Route Start Last Admin Trade Name Freq PRN Reason Stop Dose Admin Acetaminophen 650 mg 10/30/16 17:00 10/30/16 17:19 Tylenol - PO 650 mg Q4H PRN Administration FEVER OR PAIN Albuterol/Ipratropium 1 amp 10/30/16 18:00 10/31/16 12:00 Duoneb - NEB 1 amp QIDR [facility] Administration Bacitracin 1 applic 10/31/16 10:00 10/31/16 16:02 Bacitracin - TP 1 applic DAILY [facility] Administration Chlorhexidine Gluconate 15 ml 10/30/16 22:00 10/31/16 10:45 Peridex - MM 15 ml BID [facility] Administration Chlorhexidine Gluconate 1 applic 10/30/16 22:00 10/30/16 21:39 Hibiclens For Decolonization - TP 1 applic HS [facility] Administration Digoxin 0.125 mg 10/31/16 10:00 10/31/16 10:41 Lanoxin - PO 0.125 mg DAILY [facility] Administration Diltiazem HCl 30 mg 10/30/16 22:00 10/31/16 16:01 Cardizem - NGT 30 mg TID [facility] Administration Ceftazidime 2 gm/ Dextrose 100 mls @ 200 mls/hr 10/30/16 18:00 10/31/16 10:59 IVPB 200 mls/hr Q8H-IV [facility] Administration Fluconazole 50 mls @ 50 mls/hr 10/31/16 10:00 10/31/16 14:19 Diflucan 100 Mg/Ns Premixed Ivpb - IVPB 50 mls/hr DAILY [facility] Administration Insulin Aspart 1 vial 10/30/16 22:00 10/31/16 12:24 Novolog Vial Sliding Scale - SQ Not Given ACHS [facility] Protocol Lidocaine HCl 1 applic 10/30/16 17:00 Xylocaine 2% Jelly TP Q4H PRN PAIN Methimazole 10 mg 10/31/16 10:00 10/31/16 10:47 Tapazole - NGT 10 mg DAILY [facility] Administration Methylprednisolone Sodium Succinate 40 mg 10/31/16 10:00 10/31/16 10:40 Solu-Medrol - IVPB 40 mg DAILY [facility] Administration Metoprolol Tartrate 5 mg 10/30/16 17:00 10/30/16 20:30 Lopressor Injection - IVPUSH 5 mg Q6H-IV PRN Administration ANXIETY Metoprolol Tartrate 50 mg 10/30/16 22:00 10/31/16 16:01 Lopressor - PO 50 mg TID [facility] Administration Mirtazapine 15 mg 10/31/16 10:00 10/31/16 10:41 Remeron - NGT 15 mg DAILY [facility] Administration Morphine Sulfate 2 mg 10/30/16 17:00 10/30/16 20:30 Morphine Injection - IVPUSH 2 mg Q4H PRN Administration PAIN Potassium Phos/Sodium Phos 1 packet 10/30/16 22:00 10/31/16 10:45 Phos-Nak Packet - PO 1 packet BID [facility] Administration Ranitidine HCl 150 mg 10/30/16 22:00 10/31/16 10:47 Zantac Oral Solution - NGT 150 mg BID [facility] Administration Scopolamine HBr 1 patch 11/01/16 19:15 Transderm-Scop - TD Q72H [facility] ASSESSMENT/PLAN: 56 year old female with chronic respiratory failure and worsening ALS, paroxysmal atrial fibrillation with rapid ventricular response s/p surgical tracheostomy on 10/24/16. Neuro: -PMH ALS -frequent neurochecks -monitor respiratory function on trach -provide versed 2mg Q1 PRN for agitation Pulmonary -s/p trach 10/24 -saturating well -no increased work of breathing -Patient with low grade fever -BCx negative to date -ucx growing presumptive P. Aeruginosa -c/w Ceftazidime 2gm -c/w vancomycin 1.2 grams Cardiovascular: -PMhx of hypertension -BP controlled -c/w lopressor 50mg TID -PMH afib w/ rvr, rate controlled. -continue cardizem 30mg TID though PEG -consider digoxin push if rate uncontrolled on cardizem -continue eloquis 5mg for afib Abdominal: -s/p PEG -surgical site healing well -tolerating feeds well -meds through tube -2mg morphine Q4H PRN pain Endocrine: -PMH hyperthyroidism -c/w methimazole 10mg daily FEN: -no fluids indicated at this time -K 3.4, Phos 1.9 -Kphos packets BID -tube feeds Proph: -continue ranitidine Dispo: -stable to transfer to floor Problem List - Problems (1) Diastolic CHF Code(s): I50.30 - UNSPECIFIED DIASTOLIC (CONGESTIVE) HEART FAILURE (2) Pneumonia Code(s): J18.9 - PNEUMONIA, UNSPECIFIED ORGANISM Qualifiers: Pneumonia type: due to unspecified organism Laterality: left Lung location: upper lobe of lung Qualified Code(s): J18.1 - Lobar pneumonia, unspecified organism (3) Status post tracheostomy Code(s): Z93.0 - TRACHEOSTOMY STATUS (4) Status post insertion of percutaneous endoscopic gastrostomy (PEG) tube Code(s): Z93.1 - GASTROSTOMY STATUS Visit type - Emergency Visit Emergency Visit: Yes ED Registration Date: 10/15/16 Care time: The patient presented to the Emergency Department on the above date and was hospitalized for further evaluation of their emergent condition. - New Patient This patient is new to me today: No - Critical Care Critical Care patient: Yes Total Critical Care Time (in minutes): 30 Critical Care Statement: The care of this patient involved high complexity decision making to prevent further life threatening deterioration of the patient 's condition and/or to evalute & treat vital organ system(s) failure or risk of failure.
--- NOTE | 2016-10-31 17:09 | PN ---
Physical Exam: SUBJECTIVE: Patient seen and examined at bedside today. Pt had increased amount of oropharyngeal secretions, and endorsed abdominal tenderness on examination. OBJECTIVE: Vital Signs Period Temp Pulse Resp BP Sys/Hatch Pulse Ox Last 24 Hr 99.6 F-100.2 F 58-126 14-25 127-157/57-95 93-100 GENERAL: The patient is awake and fully oriented, in mild distress HEAD: Normal with no signs of trauma. EYES: PERRL, extraocular movements intact, sclera anicteric, conjunctiva clear. ENT: increased oropharyngeal secretions NECK: Trachea midline, full range of motion, supple. LUNGS: Breath sounds equal, clear to auscultation bilaterally, no wheezes, no crackles, no accessory muscle use. HEART: Regular rate and rhythm, S1, S2 without murmur, rub or gallop. ABDOMEN: PEG intact, abdominal discomfort elicited in RLQ,no guarding EXTREMITIES: 2+ posterior tibial pulses, warm, well-perfused, no edema. NEUROLOGICAL: difficult to assess, handgrip strength 3/5 today Laboratory Results - last 24 hr 10/30/16 10/30/16 10/31/16 16:48 22:57 05:20 WBC 14.7 H RBC 3.09 L Hgb 9.2 L Hct 28.2 L MCV 91.3 MCH 29.7 MCHC 32.5 RDW 14.8 Plt Count 224 MPV 9.5 Sodium Potassium Chloride Carbon Dioxide Anion Gap BUN Creatinine POC Glucometer 270.23892 232.55943 Random Glucose Calcium Phosphorus 10/31/16 10/31/16 10/31/16 05:20 06:37 11:05 WBC RBC Hgb Hct MCV MCH MCHC RDW Plt Count MPV Sodium 144 Potassium 3.4 L Chloride 106 Carbon Dioxide 33 H Anion Gap 5 L BUN 20 H Creatinine 0.3 L D POC Glucometer 224.92402 149.07264 Random Glucose 194 H Calcium 8.0 L Phosphorus 1.9 L Active Medications Generic Name Dose Route Start Last Admin Trade Name Freq PRN Reason Stop Dose Admin Acetaminophen 650 mg 10/30/16 17:00 10/30/16 17:19 Tylenol - PO 650 mg Q4H PRN Administration FEVER OR PAIN Albuterol/Ipratropium 1 amp 10/30/16 18:00 10/31/16 12:00 Duoneb - NEB 1 amp QIDR [facility] Administration Bacitracin 1 applic 10/31/16 10:00 10/31/16 16:02 Bacitracin - TP 1 applic DAILY [facility] Administration Chlorhexidine Gluconate 15 ml 10/30/16 22:00 10/31/16 10:45 Peridex - MM 15 ml BID [facility] Administration Chlorhexidine Gluconate 1 applic 10/30/16 22:00 10/30/16 21:39 Hibiclens For Decolonization - TP 1 applic HS [facility] Administration Digoxin 0.125 mg 10/31/16 10:00 10/31/16 10:41 Lanoxin - PO 0.125 mg DAILY [facility] Administration Diltiazem HCl 30 mg 10/30/16 22:00 10/31/16 16:01 Cardizem - NGT 30 mg TID [facility] Administration Ceftazidime 2 gm/ Dextrose 100 mls @ 200 mls/hr 10/30/16 18:00 10/31/16 10:59 IVPB 200 mls/hr Q8H-IV [facility] Administration Fluconazole 50 mls @ 50 mls/hr 10/31/16 10:00 10/31/16 14:19 Diflucan 100 Mg/Ns Premixed Ivpb - IVPB 50 mls/hr DAILY [facility] Administration Insulin Aspart 1 vial 10/30/16 22:00 10/31/16 12:24 Novolog Vial Sliding Scale - SQ Not Given ACHS [facility] Protocol Lidocaine HCl 1 applic 10/30/16 17:00 Xylocaine 2% Jelly TP Q4H PRN PAIN Methimazole 10 mg 10/31/16 10:00 10/31/16 10:47 Tapazole - NGT 10 mg DAILY [facility] Administration Methylprednisolone Sodium Succinate 40 mg 10/31/16 10:00 10/31/16 10:40 Solu-Medrol - IVPB 40 mg DAILY [facility] Administration Metoprolol Tartrate 5 mg 10/30/16 17:00 10/30/16 20:30 Lopressor Injection - IVPUSH 5 mg Q6H-IV PRN Administration ANXIETY Metoprolol Tartrate 50 mg 10/30/16 22:00 10/31/16 16:01 Lopressor - PO 50 mg TID [facility] Administration Mirtazapine 15 mg 10/31/16 10:00 10/31/16 10:41 Remeron - NGT 15 mg DAILY [facility] Administration Morphine Sulfate 2 mg 10/30/16 17:00 10/30/16 20:30 Morphine Injection - IVPUSH 2 mg Q4H PRN Administration PAIN Potassium Phos/Sodium Phos 1 packet 10/30/16 22:00 10/31/16 10:45 Phos-Nak Packet - PO 1 packet BID [facility] Administration Ranitidine HCl 150 mg 10/30/16 22:00 10/31/16 10:47 Zantac Oral Solution - NGT 150 mg BID [facility] Administration Scopolamine HBr 1 patch 11/01/16 19:15 Transderm-Scop - TD Q72H [facility] ASSESSMENT/PLAN: This is a 56 yr old F with PMH ALS, chronic hypercapnic resp failure, HTN, HLD, hyperthyroidism, goiter, intubated to ED via EMS due to resp arrest. In ED, pt had cardiac arrest (V tach) for 5 min, was resuscitated and stabilized, admitted to ICU. # Acute on chronic respiratory failure secondary to ALS -Trach completed (10/24/16) -s/p PEG (10/30/16) -Continue solumedrol 40mg IVPB qdaily, duonebs 1 amp PRN -Palliative on board # Fever secondary to PNA or UTI -Pt 100.2F tmax yesterday 6pm -Pt started on Ceftazidime 2gm (Day 3), Vanco d/c -Fluconazole 100mg qdaily added for empiric coverage d/t steroids # Paroxysmal afib -Continue for rate control: -Cardizem 30 mg NGT TID -Lopressor injection 5 mg IVP q6 PRN -Cardiazem 10mg IVP Q4 PRN -Digoxin 0.125 mg PO daily -Lopressor 50mg PO TID -Resume Eliquis 5mg PO BID for anticoagulation -Will continue to monitor #Hypokalemia -Repleted 40mEq KCl via PEG -Will monitor #Hypophosphatemia -Repleted with neutro-phosph packets -Will monitor #Hyperthyroidism -Continue Methimazole 10 mg via NGT #Major Depressive Disorder -Continue Remeron 15mg via NGT # s/p Cardiac arrest in ED possibly secondary to hypoxia-resolved -Troponins negative x2 -Echo: regional wall motion abnormalities can't be ruled out. When compared to Echo 10/10/16: no wall motion abnormalities #Possible atelectasis-resolved #subtherapeutic INR- resolved # Diarrhea-resolved # Lactic acidosis secondary to cardiac arrest-resolved # Hypernatremia-resolved # Anxiety-resolved DVT prophylaxis SCD's Resume Eliquis 5mg BID Stress ulcer prophylaxis -Continue Zantac 150 mg NGT BID F/E/N Monitor electrolytes s/p PEG, feeds have been resumed [facility]po [facility] Visit type - Emergency Visit Emergency Visit: No - New Patient This patient is new to me today: No - Critical Care Critical Care patient: Yes Total Critical Care Time (in minutes): 32 Critical Care Statement: The care of this patient involved high complexity decision making to prevent further life threatening deterioration of the patient 's condition and/or to evalute & treat vital organ system(s) failure or risk of failure.
[2016-10-31] MEDS: CHLORHEXIDINE GLUCONATE 4% CLEANSER FOR DECOLONIZATION TP SCH (21:40)
[2016-10-31] MEDS ORDERED: HEMOQUE TEST 1 EACH EACH ONE (22:08)
[2016-11-01] MEDS: ALBUTEROL SO4 2.5/IPRATROPIUM 0.5 INH SOL 3 ML VIAL.NEB. NEB SCH ×5 (00:05→23:21)
[2016-11-01] MEDS: CEFTAZIDIME PENTAHYDRATE 2 GM in DEXTROSE 5%-WATER - 100 ML IVPB SCH ×3 (02:30→17:18)
[2016-11-01] MEDS ORDERED: PT OWN MED DRAWER 7, Y5N ONE ×4 (03:17→17:17)
[2016-11-01] MEDS: METOPROLOL TARTRATE 50 MG TABLET (FP) PO SCH ×5 (06:00→22:24)
[2016-11-01] MEDS: dilTIAZem HCL 30 MG TABLET (FP) NGT SCH ×5 (06:00→22:24)
[2016-11-01 06:32] LABS: MCH 30.4 pg (25.7-33.7); MCHC 33.3 g/dl (32.0-36.0); MEAN CELL VOLUME 91.4 fl (80-96); RDW 15.1 % (11.6-15.6); WHITE BLOOD COUNT 16.1 K/mm3 (4.0-10.0)
[2016-11-01] MEDS: INSULIN SLIDING SCALE (NOVOLOG) 1 VIAL SQ SCH ×4 (06:32→22:21)
[2016-11-01 06:59] LABS: ANION GAP 7 (8-16); CALCIUM 8.1 mg/dL (8.5-10.1); CO2 32 mmol/L (21-32); GLUCOSE,RANDOM 146 mg/dL (74-106)
[2016-11-01 07:00] LABS: CREATININE 0.2 mg/dL (0.55-1.02)
[2016-11-01 09:04] LABS: MEAN PLT VOLUME 10.5 fl (7.5-11.1); PLATELET COUNT 188 K/MM3 (134-434); PLATELET ESTIMATE DECREASED (NORMAL)
[2016-11-01] MEDS: DIGOXIN 0.125 MG TABLET (FP) PO SCH (09:29)
[2016-11-01] MEDS: NAPH,MB-DB/K PH,MBDB POWDER PACKET PO SCH ×2 (09:30→22:24)
[2016-11-01] MEDS: CHLORHEXIDINE GLUCONATE 0.12% 15ML CUP MM SCH ×2 (09:35→22:23)
[2016-11-01] MEDS: MIRTAZAPINE 15 MG TABLET (FP) NGT SCH (09:36)
[2016-11-01] MEDS: RANITIDINE HCL 150 MG/10 ML UNIT-DOSE CUP NGT SCH ×2 (09:36→22:22)
[2016-11-01] MEDS: METHIMAZOLE 10 MG TABLET (FP) NGT SCH (09:36)
[2016-11-01] MEDS: BACITRACIN 15 GM TUBE TOPICAL OINTMENT TP SCH (09:38)
[2016-11-01] MEDS ORDERED: APIXABAN 2.5 MG TABLET PO SCH (10:00)
--- NOTE | 2016-11-01 14:01 | PN ---
Teaching Attending Note Name of Resident: Andrew Velasquez ATTENDING PHYSICIAN STATEMENT I saw and evaluated the patient. I reviewed the resident's note and discussed the case with the resident. I agree with the resident's findings and plan as documented. SUBJECTIVE: Patient seen and examined in the ICU. Awake and interactive. Still with low grade temps. Reports of Bradycardia overnight. Tolerating PEG feeds. Intake & Output 10/29/16 10/30/16 10/31/16 11/01/16 23:59 23:59 23:59 23:59 Intake Total 2080 3438 1900 950 Output Total 500 Balance 1580 3438 1900 950 Weight 164 lb 14.492 oz 170 lb 4.8 oz 170 lb 6 oz 165 lb 14.4 oz Last Vital Signs Temp Pulse Resp BP Pulse Ox 99 F 126 H 19 137/93 100 11/01/16 10:00 11/01/16 12:00 11/01/16 12:05 11/01/16 12:00 11/01/16 10:15 Active Medications Acetaminophen (Tylenol -) 650 mg PO Q4H PRN PRN Reason: FEVER OR PAIN Last Admin: 10/30/16 17:19 Dose: 650 mg Albuterol/Ipratropium (Duoneb -) 1 amp NEB QIDR [facility] Last Admin: 11/01/16 11:17 Dose: 1 amp Apixaban (Eliquis -) 5 mg PO BID [facility] Last Admin: 11/01/16 13:54 Dose: 5 mg Bacitracin (Bacitracin -) 1 applic TP DAILY [facility] Last Admin: 11/01/16 09:38 Dose: 1 applic Chlorhexidine Gluconate (Peridex -) 15 ml MM BID [facility] Last Admin: 11/01/16 09:35 Dose: 15 ml Chlorhexidine Gluconate (Hibiclens For Decolonization -) 1 applic TP HS [facility] Last Admin: 10/31/16 21:40 Dose: 1 applic Digoxin (Lanoxin -) 0.125 mg PO DAILY [facility] Last Admin: 11/01/16 09:29 Dose: 0.125 mg Diltiazem HCl (Cardizem -) 30 mg NGT TID [facility] Last Admin: 11/01/16 12:05 Dose: 30 mg Ceftazidime 2 gm/ Dextrose 100 mls @ 200 mls/hr IVPB Q8H-IV [facility] Last Admin: 11/01/16 09:40 Dose: 200 mls/hr Fluconazole (Diflucan 100 Mg/Ns Premixed Ivpb -) 50 mls @ 50 mls/hr IVPB DAILY [facility] Last Admin: 10/31/16 14:19 Dose: 50 mls/hr Insulin Aspart (Novolog Vial Sliding Scale -) 1 vial SQ ACHS [facility] PRN Reason: Protocol Last Admin: 11/01/16 06:32 Dose: Not Given Lidocaine HCl (Xylocaine 2% Jelly) 1 applic TP Q4H PRN PRN Reason: PAIN Methimazole (Tapazole -) 10 mg NGT DAILY [facility] Last Admin: 11/01/16 09:36 Dose: 10 mg Metoprolol Tartrate (Lopressor Injection -) 5 mg IVPUSH Q6H-IV PRN PRN Reason: ANXIETY Last Admin: 10/30/16 20:30 Dose: 5 mg Metoprolol Tartrate (Lopressor -) 50 mg PO TID [facility] Last Admin: 11/01/16 12:05 Dose: 50 mg Mirtazapine (Remeron -) 15 mg NGT DAILY [facility] Last Admin: 11/01/16 09:36 Dose: 15 mg Morphine Sulfate (Morphine Injection -) 2 mg IVPUSH Q4H PRN PRN Reason: PAIN Last Admin: 10/30/16 20:30 Dose: 2 mg Potassium Phos/Sodium Phos (Phos-Nak Packet -) 1 packet PO BID [facility] Last Admin: 11/01/16 09:30 Dose: 1 packet Ranitidine HCl (Zantac Oral Solution -) 150 mg NGT BID [facility] Last Admin: 11/01/16 09:36 Dose: 150 mg Scopolamine HBr (Transderm-Scop -) 1 patch TD Q72H [facility] Gen: Trached, vented, awake and responsive Heart: RRR Lung: Bibasilar rhonchi Abd: soft, nontender Ext: no edema Laboratory Results - last 24 hr 10/31/16 10/31/16 11/01/16 17:13 22:14 05:15 WBC 16.1 H RBC 3.00 L Hgb 9.1 L Hct 27.4 L MCV 91.4 MCH 30.4 MCHC 33.3 RDW 15.1 Plt Count 188 MPV 10.5 D Platelet Estimate Decreased Platelet Comment No clumping noted RBC Morphology Sodium Potassium Chloride Carbon Dioxide Anion Gap BUN Creatinine POC Glucometer [phone] Random Glucose Calcium 11/01/16 05:15 WBC RBC Hgb Hct MCV MCH MCHC RDW Plt Count MPV Platelet Estimate Platelet Comment RBC Morphology Sodium 143 Potassium 4.3 D Chloride 104 Carbon Dioxide 32 Anion Gap 7 L BUN 20 H Creatinine 0.2 L D POC Glucometer Random Glucose 146 H D Calcium 8.1 L ASSESSMENT AND PLAN: S/P Trach due to failure to wean due to ALS R/O VAP Acute on Chronic Hypoxic and Hypercapneic Respiratory Failure s/p Cardiac Arrest likely from Respiratory Failure Pneumonia Sepsis Lactic Acidosis resolved Advanced ALS Paroxysmal Atrial Fibrillation with RVR HTN Hyperthyroidism - ABX per ID - rate control with metoprolol / cardizem / digoxin -> cardiology follow up - AC - PEG feeds as tolerated - spontaneous breathing trials as tolerated (has not been tolerating thus far) - DVT/GI prophylaxis - Wean Medrol to off - Glycemic control - Trial of Lasix - Vent floor Dr Grant
--- NOTE | 2016-11-01 14:36 | PN ---
Physical Exam: SUBJECTIVE: Patient seen and examined. Patient has no new complaints. OBJECTIVE: Vital Signs Period Temp Pulse Resp BP Sys/Hatch Pulse Ox Last 24 Hr 98.2 F-100.3 F 53-126 14-22 136-187/11-95 93-100 GENERAL: The patient is awake and alert on vent in no acute distress. HEAD: Normal with no signs of trauma. EYES: PERRL, extraocular movements intact, sclera anicteric, conjunctiva clear. No ptosis. NECK: Trachea midline, Trach in place. LUNGS: Breath sounds equal, clear to auscultation bilaterally, no wheezes, no crackles, no accessory muscle use. HEART: Regular rate and rhythm, S1, S2 without murmur, rub or gallop. ABDOMEN: Soft, tender to palpation in upper quadrants, nondistended, normoactive bowel sounds, no guarding, no rebound. NEUROLOGICAL: Cranial nerves II through X grossly intact. Cannot assess speech due to trach. gait not observed. SKIN: Warm, dry, normal turgor, no rashes or lesions noted Laboratory Results - last 24 hr 10/31/16 10/31/16 11/01/16 17:13 22:14 05:15 WBC 16.1 H RBC 3.00 L Hgb 9.1 L Hct 27.4 L MCV 91.4 MCH 30.4 MCHC 33.3 RDW 15.1 Plt Count 188 MPV 10.5 D Platelet Estimate Decreased Platelet Comment No clumping noted RBC Morphology Sodium Potassium Chloride Carbon Dioxide Anion Gap BUN Creatinine POC Glucometer [phone] Random Glucose Calcium 11/01/16 11/01/16 05:15 14:00 WBC RBC Hgb Hct MCV MCH MCHC RDW Plt Count MPV Platelet Estimate Platelet Comment RBC Morphology Sodium 143 Potassium 4.3 D Chloride 104 Carbon Dioxide 32 Anion Gap 7 L BUN 20 H Creatinine 0.2 L D POC Glucometer [phone] Random Glucose 146 H D Calcium 8.1 L Active Medications Generic Name Dose Route Start Last Admin Trade Name Freq PRN Reason Stop Dose Admin Acetaminophen 650 mg 10/30/16 17:00 10/30/16 17:19 Tylenol - PO 650 mg Q4H PRN Administration FEVER OR PAIN Albuterol/Ipratropium 1 amp 10/30/16 18:00 11/01/16 11:17 Duoneb - NEB 1 amp QIDR [facility] Administration Apixaban 5 mg 11/01/16 10:00 11/01/16 13:54 Eliquis - PO 5 mg BID [facility] Administration Bacitracin 1 applic 10/31/16 10:00 11/01/16 09:38 Bacitracin - TP 1 applic DAILY [facility] Administration Chlorhexidine Gluconate 15 ml 10/30/16 22:00 11/01/16 09:35 Peridex - MM 15 ml BID [facility] Administration Chlorhexidine Gluconate 1 applic 10/30/16 22:00 10/31/16 21:40 Hibiclens For Decolonization - TP 1 applic HS [facility] Administration Digoxin 0.125 mg 10/31/16 10:00 11/01/16 09:29 Lanoxin - PO 0.125 mg DAILY [facility] Administration Diltiazem HCl 30 mg 10/30/16 22:00 11/01/16 14:08 Cardizem - NGT Not Given TID [facility] Furosemide 20 mg 11/01/16 14:45 Lasix - PO DAILY [facility] Ceftazidime 2 gm/ Dextrose 100 mls @ 200 mls/hr 10/30/16 18:00 11/01/16 09:40 IVPB 200 mls/hr Q8H-IV [facility] Administration Fluconazole 50 mls @ 50 mls/hr 10/31/16 10:00 10/31/16 14:19 Diflucan 100 Mg/Ns Premixed Ivpb - IVPB 50 mls/hr DAILY [facility] Administration Insulin Aspart 1 vial 10/30/16 22:00 11/01/16 14:12 Novolog Vial Sliding Scale - SQ Not Given ACHS [facility] Protocol Lidocaine HCl 1 applic 10/30/16 17:00 Xylocaine 2% Jelly TP Q4H PRN PAIN Methimazole 10 mg 10/31/16 10:00 11/01/16 09:36 Tapazole - NGT 10 mg DAILY [facility] Administration Metoprolol Tartrate 5 mg 10/30/16 17:00 10/30/16 20:30 Lopressor Injection - IVPUSH 5 mg Q6H-IV PRN Administration ANXIETY Metoprolol Tartrate 50 mg 10/30/16 22:00 11/01/16 14:08 Lopressor - PO Not Given TID [facility] Mirtazapine 15 mg 10/31/16 10:00 11/01/16 09:36 Remeron - NGT 15 mg DAILY [facility] Administration Morphine Sulfate 2 mg 10/30/16 17:00 10/30/16 20:30 Morphine Injection - IVPUSH 2 mg Q4H PRN Administration PAIN Potassium Phos/Sodium Phos 1 packet 10/30/16 22:00 11/01/16 09:30 Phos-Nak Packet - PO 1 packet BID [facility] Administration Ranitidine HCl 150 mg 10/30/16 22:00 11/01/16 09:36 Zantac Oral Solution - NGT 150 mg BID [facility] Administration Scopolamine HBr 1 patch 11/01/16 19:15 Transderm-Scop - TD Q72H [facility] ASSESSMENT/PLAN: 56 year old female with chronic respiratory failure and worsening ALS, paroxysmal atrial fibrillation with rapid ventricular response s/p surgical tracheostomy on 10/24/16. Neuro: -PMH ALS -monitor respiratory function on trach -provide versed 2mg Q1 PRN for agitation Pulmonary -s/p trach 10/24 -saturating well -no increased work of breathing -Patient with low grade fever -BCx negative to date -ucx growing presumptive P. Aeruginosa -c/w Ceftazidime 2gm -c/w vancomycin 1.2 grams -CXR from today showing possible pleural effusions -lasix 20 mg daily -will monitor for effect on patient Cardiovascular: -PMhx of hypertension -BP controlled -c/w lopressor 50mg TID -PMH afib w/ rvr, rate controlled. -continue cardizem 30mg TID though PEG -continue digoxin .125 PO daily -am digoxin levels -continue eloquis 5mg for afib Abdominal: -s/p PEG -surgical site healing well -tolerating feeds well -meds through tube -2mg morphine Q4H PRN pain Endocrine: -PMH hyperthyroidism -c/w methimazole 10mg daily FEN: -no fluids indicated at this time -Potassium and phosphate repleted; will monitor -tube feeds Proph: -continue ranitidine Dispo: -stable to transfer to floor; awaiting bed Problem List - Problems (1) Diastolic CHF Code(s): I50.30 - UNSPECIFIED DIASTOLIC (CONGESTIVE) HEART FAILURE (2) Pneumonia Code(s): J18.9 - PNEUMONIA, UNSPECIFIED ORGANISM Qualifiers: Pneumonia type: due to unspecified organism Laterality: left Lung location: upper lobe of lung Qualified Code(s): J18.1 - Lobar pneumonia, unspecified organism (3) Status post tracheostomy Code(s): Z93.0 - TRACHEOSTOMY STATUS (4) Status post insertion of percutaneous endoscopic gastrostomy (PEG) tube Code(s): Z93.1 - GASTROSTOMY STATUS Visit type - Emergency Visit Emergency Visit: Yes ED Registration Date: 10/15/16 Care time: The patient presented to the Emergency Department on the above date and was hospitalized for further evaluation of their emergent condition. - New Patient This patient is new to me today: No - Critical Care Critical Care patient: Yes Total Critical Care Time (in minutes): 35 Critical Care Statement: The care of this patient involved high complexity decision making to prevent further life threatening deterioration of the patient 's condition and/or to evaluate & treat vital organ system(s) failure or risk of failure.
[2016-11-01] MEDS: FUROSEMIDE 20 MG TABLET (FP) PO SCH (14:50)
[2016-11-01] MEDS: FLUCONAZOLE 100 MG/NS 50 ML IVPB SCH (14:53)
--- NOTE | 2016-11-01 15:18 | PN ---
Progress Note (short form) - Note Progress Note: day #3 antibiotics alert trach to vent Vital Signs Period Temp Pulse Resp BP Sys/Hatch Pulse Ox Last 24 Hr 98.2 F-100.3 F 53-126 14-22 136-187/11-95 93-100 cor-rrr lungs decreased bs at bases abd soft, +gt ext no edema CBC, BMP 11/01/16 05:15 11/01/16 05:15 Microbiology 10/29/16 10:12 Blood - Peripheral Venous Blood Culture - Preliminary NO GROWTH OBTAINED AFTER 72 HOURS, INCUBATION TO CONTINUE FOR 2 DAYS. 10/29/16 09:45 Blood - Peripheral Venous Blood Culture - Preliminary NO GROWTH OBTAINED AFTER 72 HOURS, INCUBATION TO CONTINUE FOR 2 DAYS. 10/29/16 09:00 Sputum - Endotrachea Suction/Ventilator Gram Stain - Final 10/29/16 09:00 Sputum - Endotrachea Suction/Ventilator Sputum Culture - Final Klebsiella Pneumoniae Pseudomonas Aeruginosa Yeast Like Organism 10/29/16 09:00 Urine - Urine Carrillo Urine Culture - Final Pseudomonas Aeruginosa 10/23/16 09:23 Blood - Peripheral Venous Blood Culture - Final NO GROWTH AFTER 5 DAYS INCUBATION 10/23/16 09:57 Blood - Peripheral Venous Blood Culture - Final NO GROWTH AFTER 5 DAYS INCUBATION 10/23/16 11:25 Sputum - Endotrachea Suction/Ventilator Gram Stain - Final 10/23/16 11:25 Sputum - Endotrachea Suction/Ventilator Sputum Culture - Final Enterobacter Cloacae 10/15/16 22:23 Blood - Peripheral Venous Blood Culture - Final NO GROWTH AFTER 5 DAYS INCUBATION 10/15/16 22:23 Blood - Peripheral Venous Blood Culture - Final NO GROWTH AFTER 5 DAYS INCUBATION 10/16/16 22:00 Sputum - Endotrachea Suction/Ventilator Gram Stain - Final 10/16/16 22:00 Sputum - Endotrachea Suction/Ventilator Sputum Culture - Final Yeast Like Organism 10/16/16 01:35 Nasopharyngeal Swab Respiratory Virus (PCR) - Final 10/15/16 22:23 Urine - Urine Carrillo Urine Culture - Final NO GROWTH OBTAINED 10/16/16 22:00 Urine For Antigen Detection Legionella Antigen - Final 10/16/16 22:00 Urine For Antigen Detection Streptococcus pneumoniae Antigen (M - Final Active Medications Acetaminophen (Tylenol -) 650 mg PO Q4H PRN PRN Reason: FEVER OR PAIN Last Admin: 10/30/16 17:19 Dose: 650 mg Albuterol/Ipratropium (Duoneb -) 1 amp NEB QIDR [facility] Last Admin: 11/01/16 11:17 Dose: 1 amp Apixaban (Eliquis -) 5 mg PO BID [facility] Last Admin: 11/01/16 13:54 Dose: 5 mg Bacitracin (Bacitracin -) 1 applic TP DAILY [facility] Last Admin: 11/01/16 09:38 Dose: 1 applic Chlorhexidine Gluconate (Peridex -) 15 ml MM BID [facility] Last Admin: 11/01/16 09:35 Dose: 15 ml Chlorhexidine Gluconate (Hibiclens For Decolonization -) 1 applic TP HS [facility] Last Admin: 10/31/16 21:40 Dose: 1 applic Digoxin (Lanoxin -) 0.125 mg PO DAILY [facility] Last Admin: 11/01/16 09:29 Dose: 0.125 mg Diltiazem HCl (Cardizem -) 30 mg NGT TID [facility] Last Admin: 11/01/16 14:08 Dose: Not Given Furosemide (Lasix -) 20 mg PO DAILY [facility] Last Admin: 11/01/16 14:50 Dose: 20 mg Ceftazidime 2 gm/ Dextrose 100 mls @ 200 mls/hr IVPB Q8H-IV [facility] Last Admin: 11/01/16 09:40 Dose: 200 mls/hr Fluconazole (Diflucan 100 Mg/Ns Premixed Ivpb -) 50 mls @ 50 mls/hr IVPB DAILY [facility] Last Admin: 11/01/16 14:53 Dose: 50 mls/hr Insulin Aspart (Novolog Vial Sliding Scale -) 1 vial SQ ACHS [facility] PRN Reason: Protocol Last Admin: 11/01/16 14:12 Dose: Not Given Lidocaine HCl (Xylocaine 2% Jelly) 1 applic TP Q4H PRN PRN Reason: PAIN Methimazole (Tapazole -) 10 mg NGT DAILY [facility] Last Admin: 11/01/16 09:36 Dose: 10 mg Metoprolol Tartrate (Lopressor Injection -) 5 mg IVPUSH Q6H-IV PRN PRN Reason: ANXIETY Last Admin: 10/30/16 20:30 Dose: 5 mg Metoprolol Tartrate (Lopressor -) 50 mg PO TID [facility] Last Admin: 11/01/16 14:08 Dose: Not Given Mirtazapine (Remeron -) 15 mg NGT DAILY [facility] Last Admin: 11/01/16 09:36 Dose: 15 mg Morphine Sulfate (Morphine Injection -) 2 mg IVPUSH Q4H PRN PRN Reason: PAIN Last Admin: 10/30/16 20:30 Dose: 2 mg Potassium Phos/Sodium Phos (Phos-Nak Packet -) 1 packet PO BID [facility] Last Admin: 11/01/16 09:30 Dose: 1 packet Ranitidine HCl (Zantac Oral Solution -) 150 mg NGT BID [facility] Last Admin: 11/01/16 09:36 Dose: 150 mg Scopolamine HBr (Transderm-Scop -) 1 patch TD Q72H [facility] a/p resp failure pneumonia/effusions ALS continue fortaz/diflucan day #3 agree with diuresis d/w ICU team
--- NOTE | 2016-11-01 16:23 | PN ---
Teaching Attending Note Name of Resident: Manjula Delvalle ATTENDING PHYSICIAN STATEMENT I saw and evaluated the patient. I reviewed the resident's note and discussed the case with the resident. I agree with the resident's findings and plan as documented. SUBJECTIVE:resting comfortable OBJECTIVE: Last Vital Signs Temp Pulse Resp BP Pulse Ox 99 F 126 H 19 137/93 100 11/01/16 10:00 11/01/16 12:00 11/01/16 12:05 11/01/16 12:00 11/01/16 10:15 General NAD, shakes head yes/no on questioning CV S1 S2 + no murmur Lungs CTA B/L anteriorly Abdomen soft mildly tender around PEG site which is clean and dry, no ulceration noted Extremities no pedal edema ASSESSMENT AND PLAN: 56-year-old woman with a history of ALS, chronic hypercapnic respiratory failure , HTN, hyperthyroidism, atrial fib, hyperlipidemia who was brought in to the ER after being intubated by EMS for acute respiratory distress and subsequently had cardiac arrest in the ER. 1. s/p cardiac arrest, secondary to hypoxia vs electrolyte abnormality 2. Acute on chronic hypoxic and hypercapnic respiratory failure- due to progression of ALS. has failed daily CPAP trials and trach on 10/25. continues to fail cpap trials. will need aggressive trials for chance of recovery of pulmonary function. cont trials per pulmonary. solumedrol 40mg daily. taper per pulmonary. was started on scopolamine patch with improvement in secretions. cont frequent suctioning. chest PT 3. dysphagia- s/p PEG placement 10/29. tolerated PEG feeds. cont to monitor 4. Intermittent fevers- PNA vs UTI. cont to have intermittent low grade fevers. vanco d/c and placed on difulcan. on ceftazidime. abx per ID 5. Hypokalemia- resolved 6. Hypophosphatemia-resolved 7. HTN Continue Cardizem, Lopressor 8. Paroxysmal atrial fibrillation/flutter with RVR- rate controlled. on eliquis 9. Hyperlipidemia 10. Hyperglycemia-likely steroid induced A1c 4.3. will cont to cover with iss. 11. Depression- Continue Remeron 12. ALS 13. DVT prophylaxis- On Eliquis 14. would benefit from transfer to LTAC facility as will likely be difficult to wean off full vent support. has failed multiple cpap trials and needs aggressive vent management that would be provided at LTAC facility. spoke with son in detail. agrees with transfer CC TIME 38 minutes. The care of this patient involved high complexity decision making to prevent further life threatening deterioration of the patient's condition and/or to evalute & treat vital organ system(s) failure or risk of failure.
--- NOTE | 2016-11-01 16:32 | PN ---
Physical Exam: SUBJECTIVE: Patient seen and examined at bedside today. Overnight, pt had Tmax 100.2F. As per nurse, pt was desaturating into the 70's when she was moved. Today pt still having secretions, but same amount as day prior. Pt is being suctioned routinely by staff. Son at bedside today. OBJECTIVE: Vital Signs Period Temp Pulse Resp BP Sys/Hatch Pulse Ox Last 24 Hr 98.2 F-100.2 F 53-126 14-22 136-187/11-93 93-100 GENERAL: The patient is awake, alert in no acute distress. HEAD: Normal with no signs of trauma. EYES: PERRL, extraocular movements intact, sclera anicteric, conjunctiva clear. NECK: Trachea midline, supple. LUNGS: Breath sounds equal, clear to auscultation bilaterally, no wheezes, no crackles, no accessory muscle use. HEART: Regular rate and rhythm, S1, S2 without murmur, rub or gallop. ABDOMEN: pt tender to palpation in mid-epigastric area, near PEG tube site EXTREMITIES: 2+ posterior tibial pulses, warm, well-perfused, no edema. NEUROLOGICAL: difficult to assess, but pt responsive to commands Laboratory Results - last 24 hr 10/31/16 10/31/16 11/01/16 17:13 22:14 05:15 WBC 16.1 H RBC 3.00 L Hgb 9.1 L Hct 27.4 L MCV 91.4 MCH 30.4 MCHC 33.3 RDW 15.1 Plt Count 188 MPV 10.5 D Platelet Estimate Decreased Platelet Comment No clumping noted RBC Morphology Sodium Potassium Chloride Carbon Dioxide Anion Gap BUN Creatinine POC Glucometer 175.70731 193.93106 Random Glucose Calcium 11/01/16 11/01/16 05:15 14:00 WBC RBC Hgb Hct MCV MCH MCHC RDW Plt Count MPV Platelet Estimate Platelet Comment RBC Morphology Sodium 143 Potassium 4.3 D Chloride 104 Carbon Dioxide 32 Anion Gap 7 L BUN 20 H Creatinine 0.2 L D POC Glucometer 178.84756 Random Glucose 146 H D Calcium 8.1 L Active Medications Generic Name Dose Route Start Last Admin Trade Name Freq PRN Reason Stop Dose Admin Acetaminophen 650 mg 10/30/16 17:00 10/30/16 17:19 Tylenol - PO 650 mg Q4H PRN Administration FEVER OR PAIN Albuterol/Ipratropium 1 amp 08/08/17 18:00 11/01/16 11:17 Duoneb - NEB 1 amp QIDR [facility] Administration Apixaban 5 mg 11/01/16 10:00 11/01/16 13:54 Eliquis - PO 5 mg BID [facility] Administration Bacitracin 1 applic 10/31/16 10:00 11/01/16 09:38 Bacitracin - TP 1 applic DAILY [facility] Administration Chlorhexidine Gluconate 15 ml 10/30/16 22:00 11/01/16 09:35 Peridex - MM 15 ml BID [facility] Administration Chlorhexidine Gluconate 1 applic 10/30/16 22:00 10/31/16 21:40 Hibiclens For Decolonization - TP 1 applic HS [facility] Administration Digoxin 0.125 mg 10/31/16 10:00 11/01/16 09:29 Lanoxin - PO 0.125 mg DAILY [facility] Administration Diltiazem HCl 30 mg 10/30/16 22:00 11/01/16 14:08 Cardizem - NGT Not Given TID [facility] Furosemide 20 mg 11/01/16 14:45 11/01/16 14:50 Lasix - PO 20 mg DAILY [facility] Administration Ceftazidime 2 gm/ Dextrose 100 mls @ 200 mls/hr 10/30/16 18:00 11/01/16 09:40 IVPB 200 mls/hr Q8H-IV [facility] Administration Fluconazole 50 mls @ 50 mls/hr 10/31/16 10:00 11/01/16 14:53 Diflucan 100 Mg/Ns Premixed Ivpb - IVPB 50 mls/hr DAILY [facility] Administration Insulin Aspart 1 vial 10/30/16 22:00 11/01/16 14:12 Novolog Vial Sliding Scale - SQ Not Given ACHS [facility] Protocol Lidocaine HCl 1 applic 10/30/16 17:00 Xylocaine 2% Jelly TP Q4H PRN PAIN Methimazole 10 mg 10/31/16 10:00 11/01/16 09:36 Tapazole - NGT 10 mg DAILY [facility] Administration Metoprolol Tartrate 5 mg 10/30/16 17:00 10/30/16 20:30 Lopressor Injection - IVPUSH 5 mg Q6H-IV PRN Administration ANXIETY Metoprolol Tartrate 50 mg 10/30/16 22:00 11/01/16 14:08 Lopressor - PO Not Given TID [facility] Mirtazapine 15 mg 10/31/16 10:00 11/01/16 09:36 Remeron - NGT 15 mg DAILY [facility] Administration Morphine Sulfate 2 mg 10/30/16 17:00 10/30/16 20:30 Morphine Injection - IVPUSH 2 mg Q4H PRN Administration PAIN Potassium Phos/Sodium Phos 1 packet 10/30/16 22:00 11/01/16 09:30 Phos-Nak Packet - PO 1 packet BID [facility] Administration Ranitidine HCl 150 mg 10/30/16 22:00 11/01/16 09:36 Zantac Oral Solution - NGT 150 mg BID [facility] Administration Scopolamine HBr 1 patch 11/01/16 19:15 Transderm-Scop - TD Q72H [facility] ASSESSMENT/PLAN: This is a 56 yr old F with PMH ALS, chronic hypercapnic resp failure, HTN, HLD, hyperthyroidism, goiter, intubated to ED via EMS due to resp arrest. In ED, pt had cardiac arrest (V tach) for 5 min, was resuscitated and stabilized, admitted to ICU. # Acute on chronic respiratory failure secondary to ALS -Trach completed (10/24/16) -s/p PEG (10/30/16) -Continue solumedrol 40mg IVPB qdaily, duonebs 1 amp PRN, scopolamine patch for incr. secretions -Palliative on board # Fever secondary to PNA or UTI -Pt 100.2F tmax yesterday 6pm -Pt started on Ceftazidime 2gm (Day 3), Fluconazole 100mg qdaily (Day2) -CXR 11/01: bilateral pulmonary and pleural changes have increased slightly - potential need for diuresis # Paroxysmal afib -Continue for rate control: -Cardizem 30 mg NGT TID -Lopressor injection 5 mg IVP q6 PRN -Cardiazem 10mg IVP Q4 PRN -Digoxin 0.125 mg PO daily -Lopressor 50mg PO TID -Eliquis 5mg PO BID for anticoagulation has been resumed -Will continue to monitor #Hypokalemia-resolevd #Hypophosphatemia-resolved #Hyperthyroidism -Continue Methimazole 10 mg via NGT #Major Depressive Disorder -Continue Remeron 15mg via NGT # s/p Cardiac arrest in ED possibly secondary to hypoxia-resolved -Troponins negative x2 -Echo: regional wall motion abnormalities can't be ruled out. When compared to Echo 10/10/16: no wall motion abnormalities #Possible atelectasis-resolved #subtherapeutic INR- resolved # Diarrhea-resolved # Lactic acidosis secondary to cardiac arrest-resolved # Hypernatremia-resolved # Anxiety-resolved DVT prophylaxis SCD's Resumed Eliquis 5mg BID Stress ulcer prophylaxis -Continue Zantac 150 mg NGT BID F/E/N Monitor electrolytes s/p PEG, feeds have been resumed Dispo Denied for LTACH -Will F/u Visit type - Emergency Visit Emergency Visit: No - New Patient This patient is new to me today: No - Critical Care Critical Care patient: Yes Total Critical Care Time (in minutes): 32 Critical Care Statement: The care of this patient involved high complexity decision making to prevent further life threatening deterioration of the patient 's condition and/or to evaluate & treat vital organ system(s) failure or risk of failure.
[2016-11-01] MEDS: APIXABAN 5 MG TABLET PO SCH (22:22)
[2016-11-01] MEDS: CHLORHEXIDINE GLUCONATE 4% CLEANSER FOR DECOLONIZATION TP SCH (22:35)
[2016-11-02] MEDS: CEFTAZIDIME PENTAHYDRATE 2 GM in DEXTROSE 5%-WATER - 100 ML IVPB SCH ×3 (01:18→17:45)
[2016-11-02] MEDS: ACETAMINOPHEN 325 MG TABLET (FP) PO PRN (01:27)
[2016-11-02] MEDS: dilTIAZem HCL 30 MG TABLET (FP) NGT SCH ×3 (05:21→22:20)
[2016-11-02] MEDS: METOPROLOL TARTRATE 50 MG TABLET (FP) PO SCH ×3 (05:21→22:20)
[2016-11-02] MEDS: INSULIN SLIDING SCALE (NOVOLOG) 1 VIAL SQ SCH ×2 (06:15→12:26)
[2016-11-02] MEDS: ALBUTEROL SO4 2.5/IPRATROPIUM 0.5 INH SOL 3 ML VIAL.NEB. NEB SCH ×4 (06:41→23:43)
[2016-11-02 08:36] LABS: MCH 29.7 pg (25.7-33.7); MCHC 32.4 g/dl (32.0-36.0); MEAN CELL VOLUME 91.4 fl (80-96); MEAN PLT VOLUME 9.5 fl (7.5-11.1); PLATELET COUNT 192 K/MM3 (134-434); RDW 14.6 % (11.6-15.6); WHITE BLOOD COUNT 15.3 K/mm3 (4.0-10.0)
[2016-11-02 09:43] LABS: ANION GAP 5 (8-16); CALCIUM 8.2 mg/dL (8.5-10.1); CO2 36 mmol/L (21-32); CREATININE < 0.2 mg/dL (0.55-1.02); GLUCOSE,RANDOM 125 mg/dL (74-106); PHOSPHOROUS 2.6 mg/dL (2.5-4.9)
[2016-11-02 09:56] LABS: DIGOXIN LEVEL 0.5403 ng/ml (0.8-2.0)
[2016-11-02] MEDS: BACITRACIN 15 GM TUBE TOPICAL OINTMENT TP SCH (10:00)
[2016-11-02 10:27] LABS: MAGNESIUM 1.9 mg/dL (1.8-2.4)
[2016-11-02] MEDS: FUROSEMIDE 20 MG TABLET (FP) PO SCH (10:59)
[2016-11-02] MEDS: DIGOXIN 0.125 MG TABLET (FP) PO SCH (10:59)
[2016-11-02] MEDS: METHIMAZOLE 10 MG TABLET (FP) NGT SCH (10:59)
[2016-11-02] MEDS: APIXABAN 5 MG TABLET PO SCH ×2 (10:59→22:20)
[2016-11-02] MEDS: MIRTAZAPINE 15 MG TABLET (FP) NGT SCH (11:00)
[2016-11-02] MEDS: NAPH,MB-DB/K PH,MBDB POWDER PACKET PO SCH ×2 (11:00→22:20)
[2016-11-02] MEDS: RANITIDINE HCL 150 MG/10 ML UNIT-DOSE CUP NGT SCH ×2 (11:01→22:21)
[2016-11-02] MEDS: FLUCONAZOLE 100 MG/NS 50 ML IVPB SCH (11:07)
[2016-11-02] MEDS: CHLORHEXIDINE GLUCONATE 0.12% 15ML CUP MM SCH ×2 (11:08→22:20)
[2016-11-02] MEDS: morphine CARPU-JECT 4 MG/1 ML DISP.SYRIN IVPUSH PRN ×2 (13:06→22:25)
--- NOTE | 2016-11-02 13:12 | PN ---
Teaching Attending Note Name of Resident: Manjula Delvalle ATTENDING PHYSICIAN STATEMENT I saw and evaluated the patient. I reviewed the resident's note and discussed the case with the resident. I agree with the resident's findings and plan as documented. SUBJECTIVE:resting comfortable OBJECTIVE: Last Vital Signs Temp Pulse Resp BP Pulse Ox 97.9 F 66 23 137/78 97 11/02/16 10:00 11/02/16 10:59 11/02/16 10:25 11/02/16 10:00 11/02/16 10:35 General NAD, shakes head yes/no on questioning CV S1 S2 + no murmur Lungs CTA B/L anteriorly Abdomen soft mildly tender around PEG site which is clean and dry, no ulceration noted Extremities no pedal edema ASSESSMENT AND PLAN: 56-year-old woman with a history of ALS, chronic hypercapnic respiratory failure , HTN, hyperthyroidism, atrial fib, hyperlipidemia who was brought in to the ER after being intubated by EMS for acute respiratory distress and subsequently had cardiac arrest in the ER. 1. s/p cardiac arrest, secondary to hypoxia vs electrolyte abnormality 2. Acute on chronic hypoxic and hypercapnic respiratory failure- due to progression of ALS. has failed daily CPAP trials and trach on 10/25. continues to fail cpap trials. will need aggressive trials for chance of recovery of pulmonary function. cont trials per pulmonary. now off steroids. was started on scopolamine patch with improvement in secretions. cont frequent suctioning. chest PT, frequent suctioning 3. dysphagia- s/p PEG placement 10/29. tolerated PEG feeds. cont to monitor 4. Intermittent fevers- PNA vs UTI. cont to have intermittent low grade fevers. on difulcan & ceftazidime. abx per ID 5. Hypokalemia- resolved 6. Hypophosphatemia-resolved 7. HTN Continue Cardizem, Lopressor 8. Paroxysmal atrial fibrillation/flutter with RVR- rate controlled. on eliquis 9. Hyperlipidemia 10. Hyperglycemia-likely steroid induced A1c 4.3. now resolved since steroids are d/c. has not required any coverage. will d/c iss, bgm 11. Depression- Continue Remeron 12. ALS 13. DVT prophylaxis- On Eliquis 14. would benefit from transfer to LTAC facility as will likely be difficult to wean off full vent support. has failed multiple cpap trials and needs aggressive vent management that would be provided at LTAC facility.
--- NOTE | 2016-11-02 13:35 | PN ---
Progress Note, Physician History of Present Illness: pulmonary awake on vent support,-resp distress - Current Medication List Current Medications: Active Medications Acetaminophen (Tylenol -) 650 mg PO Q4H PRN PRN Reason: FEVER OR PAIN Last Admin: 11/02/16 01:27 Dose: 650 mg Albuterol/Ipratropium (Duoneb -) 1 amp NEB QIDR [facility] Last Admin: 11/02/16 11:11 Dose: 1 amp Amino Acids (Prosource No Carb Liquid Pkt) 30 ml PO TID [facility] Apixaban (Eliquis -) 5 mg PO BID [facility] Last Admin: 11/02/16 10:59 Dose: 5 mg Bacitracin (Bacitracin -) 1 applic TP DAILY [facility] Last Admin: 11/01/16 09:38 Dose: 1 applic Chlorhexidine Gluconate (Peridex -) 15 ml MM BID [facility] Last Admin: 11/02/16 11:08 Dose: 15 ml Chlorhexidine Gluconate (Hibiclens For Decolonization -) 1 applic TP HS [facility] Last Admin: 11/01/16 22:35 Dose: Not Given Digoxin (Lanoxin -) 0.125 mg PO DAILY [facility] Last Admin: 11/02/16 10:59 Dose: 0.125 mg Diltiazem HCl (Cardizem -) 30 mg NGT TID [facility] Last Admin: 11/02/16 05:21 Dose: 30 mg Furosemide (Lasix -) 20 mg PO DAILY [facility] Last Admin: 11/02/16 10:59 Dose: 20 mg Ceftazidime 2 gm/ Dextrose 100 mls @ 200 mls/hr IVPB Q8H-IV [facility] Last Admin: 11/02/16 12:17 Dose: 200 mls/hr Fluconazole (Diflucan 100 Mg/Ns Premixed Ivpb -) 50 mls @ 50 mls/hr IVPB DAILY [facility] Last Admin: 11/02/16 11:07 Dose: 50 mls/hr Lidocaine HCl (Xylocaine 2% Jelly) 1 applic TP Q4H PRN PRN Reason: PAIN Methimazole (Tapazole -) 10 mg NGT DAILY [facility] Last Admin: 11/02/16 10:59 Dose: 10 mg Metoprolol Tartrate (Lopressor Injection -) 5 mg IVPUSH Q6H-IV PRN PRN Reason: ANXIETY Last Admin: 10/30/16 20:30 Dose: 5 mg Metoprolol Tartrate (Lopressor -) 50 mg PO TID [facility] Last Admin: 11/02/16 05:21 Dose: 50 mg Mirtazapine (Remeron -) 15 mg NGT DAILY [facility] Last Admin: 11/02/16 11:00 Dose: 15 mg Morphine Sulfate (Morphine Injection -) 2 mg IVPUSH Q4H PRN PRN Reason: PAIN Last Admin: 11/02/16 13:06 Dose: 2 mg Potassium Phos/Sodium Phos (Phos-Nak Packet -) 1 packet PO BID [facility] Last Admin: 11/02/16 11:00 Dose: 1 packet Ranitidine HCl (Zantac Oral Solution -) 150 mg NGT BID [facility] Last Admin: 11/02/16 11:01 Dose: 150 mg Scopolamine HBr (Transderm-Scop -) 1 patch TD Q72H [facility] - Objective Vital Signs: Vital Signs Temperature 97.9 F 11/02/16 10:00 Pulse Rate 66 11/02/16 10:59 Respiratory Rate 23 11/02/16 10:25 Blood Pressure 137/78 11/02/16 10:00 O2 Sat by Pulse Oximetry (%) 97 11/02/16 10:35 Constitutional: Yes: Well Nourished, Calm Eyes: Yes: WNL HENT: Yes: WNL Neck: Yes: WNL Cardiovascular: Yes: Pulse Irregular, S1, S2 Respiratory: Yes: Rhonchi (scattered glory rhonchi) Gastrointestinal: Yes: Normal Bowel Sounds, Soft Extremities: Yes: WNL Edema: No Labs: CBC, BMP 11/02/16 07:15 11/02/16 07:15 INR, PTT INR 1.30 (0.82-1.09) H 10/28/16 17:45 - ....Imaging Chest X-ray: Report Reviewed, Image Reviewed (increased congestion bilaterally) Problem List - Problems (1) Cardiac arrest Code(s): I46.9 - CARDIAC ARREST, CAUSE UNSPECIFIED (2) Diastolic CHF Code(s): I50.30 - UNSPECIFIED DIASTOLIC (CONGESTIVE) HEART FAILURE (3) Pneumonia Code(s): J18.9 - PNEUMONIA, UNSPECIFIED ORGANISM Qualifiers: Pneumonia type: due to unspecified organism Laterality: left Lung location: upper lobe of lung Qualified Code(s): J18.1 - Lobar pneumonia, unspecified organism (4) Respiratory failure requiring intubation Code(s): J96.90 - RESPIRATORY FAILURE, UNSP, UNSP W HYPOXIA OR HYPERCAPNIA (5) Status post tracheostomy Code(s): Z93.0 - TRACHEOSTOMY STATUS (6) ALS (amyotrophic lateral sclerosis) Code(s): G12.21 - AMYOTROPHIC LATERAL SCLEROSIS (7) Hyperthyroidism Code(s): E05.90 - THYROTOXICOSIS, UNSP WITHOUT THYROTOXIC CRISIS OR STORM (8) Paroxysmal atrial fibrillation Code(s): I48.0 - PAROXYSMAL ATRIAL FIBRILLATION (9) Pleural effusion Code(s): J90 - PLEURAL EFFUSION, NOT ELSEWHERE CLASSIFIED (10) Respiratory failure Code(s): J96.90 - RESPIRATORY FAILURE, UNSP, UNSP W HYPOXIA OR HYPERCAPNIA Qualifiers: Chronicity: acute Respiratory failure complication: hypoxia and hypercapnia Qualified Code(s): J96.01 - Acute respiratory failure with hypoxia Assessment/Plan ASSESSMENT AND PLAN: S/P Trach due to failure to wean due to ALS R/O VAP Acute on Chronic Hypoxic and Hypercapneic Respiratory Failure s/p Cardiac Arrest likely from Respiratory Failure Pneumonia Sepsis Lactic Acidosis resolved Advanced ALS Paroxysmal Atrial Fibrillation with RVR HTN Hyperthyroidism - ABX per ID - AC - PEG feeds as tolerated - spontaneous breathing trials as tolerated (has not been tolerating thus far) - DVT/GI prophylaxis - Glycemic control - Linda BELTRAN
[2016-11-02] MEDS ORDERED: AMINO ACIDS/PROTEIN HYDROLYS 30 ML LIQUID.PKT PO SCH (14:00)
--- NOTE | 2016-11-02 14:39 | PN ---
Progress Note (short form) - Note Progress Note: day #4 antibiotics alert trach to vent Vital Signs Period Temp Pulse Resp BP Sys/Hatch Pulse Ox Last 24 Hr 97.9 F-100.3 F 65-76 14-27 137-172/78-91 97-99 cor-rrr lungs decreased bs at bases abd soft, nt +GT ext no edema CBC, BMP 11/02/16 07:15 11/02/16 07:15 Microbiology 10/29/16 10:12 Blood - Peripheral Venous Blood Culture - Preliminary NO GROWTH OBTAINED AFTER 96 HOURS, INCUBATION TO CONTINUE FOR 1 DAYS. 10/29/16 09:45 Blood - Peripheral Venous Blood Culture - Preliminary NO GROWTH OBTAINED AFTER 96 HOURS, INCUBATION TO CONTINUE FOR 1 DAYS. Active Medications Acetaminophen (Tylenol -) 650 mg PO Q4H PRN PRN Reason: FEVER OR PAIN Last Admin: 11/02/16 01:27 Dose: 650 mg Albuterol/Ipratropium (Duoneb -) 1 amp NEB QIDR [facility] Last Admin: 11/02/16 11:11 Dose: 1 amp Amino Acids (Prosource No Carb Liquid Pkt) 30 ml PO TID [facility] Apixaban (Eliquis -) 5 mg PO BID [facility] Last Admin: 11/02/16 10:59 Dose: 5 mg Bacitracin (Bacitracin -) 1 applic TP DAILY [facility] Last Admin: 11/02/16 10:00 Dose: Not Given Chlorhexidine Gluconate (Peridex -) 15 ml MM BID [facility] Last Admin: 11/02/16 11:08 Dose: 15 ml Chlorhexidine Gluconate (Hibiclens For Decolonization -) 1 applic TP HS [facility] Last Admin: 11/01/16 22:35 Dose: Not Given Digoxin (Lanoxin -) 0.125 mg PO DAILY [facility] Last Admin: 11/02/16 10:59 Dose: 0.125 mg Diltiazem HCl (Cardizem -) 30 mg NGT TID [facility] Last Admin: 11/02/16 05:21 Dose: 30 mg Furosemide (Lasix -) 20 mg PO DAILY [facility] Last Admin: 11/02/16 10:59 Dose: 20 mg Ceftazidime 2 gm/ Dextrose 100 mls @ 200 mls/hr IVPB Q8H-IV [facility] Last Admin: 11/02/16 12:17 Dose: 200 mls/hr Fluconazole (Diflucan 100 Mg/Ns Premixed Ivpb -) 50 mls @ 50 mls/hr IVPB DAILY [facility] Last Admin: 11/02/16 11:07 Dose: 50 mls/hr Lidocaine HCl (Xylocaine 2% Jelly) 1 applic TP Q4H PRN PRN Reason: PAIN Methimazole (Tapazole -) 10 mg NGT DAILY [facility] Last Admin: 11/02/16 10:59 Dose: 10 mg Metoprolol Tartrate (Lopressor -) 50 mg PO TID [facility] Last Admin: 11/02/16 05:21 Dose: 50 mg Mirtazapine (Remeron -) 15 mg NGT DAILY [facility] Last Admin: 11/02/16 11:00 Dose: 15 mg Morphine Sulfate (Morphine Injection -) 2 mg IVPUSH Q4H PRN PRN Reason: PAIN Last Admin: 11/02/16 13:06 Dose: 2 mg Potassium Phos/Sodium Phos (Phos-Nak Packet -) 1 packet PO BID [facility] Last Admin: 11/02/16 11:00 Dose: 1 packet Ranitidine HCl (Zantac Oral Solution -) 150 mg NGT BID [facility] Last Admin: 11/02/16 11:01 Dose: 150 mg Scopolamine HBr (Transderm-Scop -) 1 patch TD Q72H [facility] a/p resp failure pneumonia/effusions ALS continue fortaz/diflucan day #4 agree with diuresis
[2016-11-02] MEDS: AMINO ACIDS/PROTEIN HYDROLYS 30 ML LIQUID.PKT PO SCH ×2 (15:04→22:20)
[2016-11-02 15:39] LABS: URINE APPEARANCE CLEAR; URINE BILIRUBIN NEGATIVE (NEGATIVE); URINE BLOOD 1+ (NEGATIVE); URINE COLOR STRAW; URINE GLUCOSE (UA) NEGATIVE (NEGATIVE); URINE KETONE NEGATIVE (NEGATIVE); URINE LEUK ESTERASE NEGATIVE (NEGATIVE); URINE NITRITE NEGATIVE (NEGATIVE); URINE PROTEIN NEGATIVE (NEGATIVE); URINE UROBILINOGEN NEGATIVE mg/dL (0.2-1.0)
[2016-11-02 16:03] LABS: URINE BACTERIA RARE /hpf (NONE SEEN); URINE MUCUS RARE; URINE RBC 2 /hpf (0-3); URINE WBC 4 /hpf (3-5)
--- NOTE | 2016-11-02 19:05 | PN ---
Physical Exam: SUBJECTIVE: Patient seen and examined at bedside. Pt had 100.3F tmax last night , was given Tylenol. Pt resting comfortably today with son in room. OBJECTIVE: Vital Signs Period Temp Pulse Resp BP Sys/Hatch Pulse Ox Last 24 Hr 97.7 F-100.3 F 66-78 14-27 137-172/78-91 97-99 GENERAL: The patient is awake, alert, and in no acute distress. HEAD: Normal with no signs of trauma. EYES: PERRL, extraocular movements intact, sclera anicteric, conjunctiva clear. NECK: Trachea midline, supple. LUNGS: Breath sounds equal, clear to auscultation bilaterally, no wheezes, no crackles, no accessory muscle use. HEART: Regular rate and rhythm, S1, S2 without murmur, rub or gallop. ABDOMEN: Soft, nontender, nondistended, normoactive bowel sounds, no guarding, no rebound EXTREMITIES: 2+ posterior tibial pulses, warm, well-perfused, pitting edema in hands bilaterally NEUROLOGICAL: difficult to assess, however pt responsive to commands Laboratory Results - last 24 hr 11/01/16 11/01/16 11/02/16 17:02 22:20 06:13 WBC RBC Hgb Hct MCV MCH MCHC RDW Plt Count MPV Sodium Potassium Chloride Carbon Dioxide Anion Gap BUN Creatinine POC Glucometer 173.38261 143 151 Random Glucose Calcium Phosphorus Magnesium Urine Color Urine Appearance Urine pH Ur Specific [employer] Urine Protein Urine Glucose (UA) Urine Ketones Urine Blood Urine Nitrite Urine Bilirubin Urine Urobilinogen Ur Leukocyte Esterase Urine RBC Urine WBC Ur Epithelial Cells Urine Bacteria Urine Mucus Digoxin 11/02/16 11/02/16 11/02/16 07:15 07:15 11:45 WBC 15.3 H RBC 3.41 L Hgb 10.1 L D Hct 31.1 L MCV 91.4 MCH 29.7 MCHC 32.4 RDW 14.6 Plt Count 192 MPV 9.5 Sodium 141 Potassium 4.0 Chloride 100 Carbon Dioxide 36 H Anion Gap 5 L BUN 13 D Creatinine < 0.2 L POC Glucometer 130 Random Glucose 125 H Calcium 8.2 L Phosphorus 2.6 D Magnesium 1.9 Urine Color Urine Appearance Urine pH Ur Specific [employer] Urine Protein Urine Glucose (UA) Urine Ketones Urine Blood Urine Nitrite Urine Bilirubin Urine Urobilinogen Ur Leukocyte Esterase Urine RBC Urine WBC Ur Epithelial Cells Urine Bacteria Urine Mucus Digoxin 0.5403 L 11/02/16 11/02/16 14:15 16:42 WBC RBC Hgb Hct MCV MCH MCHC RDW Plt Count MPV Sodium Potassium Chloride Carbon Dioxide Anion Gap BUN Creatinine POC Glucometer 130 Random Glucose Calcium Phosphorus Magnesium Urine Color Straw Urine Appearance Clear Urine pH 8.0 Ur Specific [employer] 1.015 Urine Protein Negative Urine Glucose (UA) Negative Urine Ketones Negative Urine Blood 1+ H Urine Nitrite Negative Urine Bilirubin Negative Urine Urobilinogen Negative Ur Leukocyte Esterase Negative Urine RBC 2 Urine WBC 4 Ur Epithelial Cells Moderate Urine Bacteria Rare Urine Mucus Rare Digoxin Active Medications Generic Name Dose Route Start Last Admin Trade Name Freq PRN Reason Stop Dose Admin Acetaminophen 650 mg 10/30/16 17:00 11/02/16 01:27 Tylenol - PO 650 mg Q4H PRN Administration FEVER OR PAIN Albuterol/Ipratropium 1 amp 10/30/16 18:00 11/02/16 17:05 Duoneb - NEB 1 amp QIDR [facility] Administration Amino Acids 30 ml 11/02/16 14:00 11/02/16 15:04 Prosource No Carb Liquid Pkt PO 30 ml TID [facility] Administration Apixaban 5 mg 11/01/16 22:00 11/02/16 10:59 Eliquis - PO 5 mg BID [facility] Administration Bacitracin 1 applic 10/31/16 10:00 11/02/16 10:00 Bacitracin - TP Not Given DAILY [facility] Chlorhexidine Gluconate 15 ml 10/30/16 22:00 11/02/16 11:08 Peridex - MM 15 ml BID [facility] Administration Digoxin 0.125 mg 10/31/16 10:00 11/02/16 10:59 Lanoxin - PO 0.125 mg DAILY [facility] Administration Diltiazem HCl 30 mg 10/30/16 22:00 11/02/16 15:03 Cardizem - NGT 30 mg TID [facility] Administration Furosemide 20 mg 11/01/16 14:45 11/02/16 10:59 Lasix - PO 20 mg DAILY [facility] Administration Ceftazidime 2 gm/ Dextrose 100 mls @ 200 mls/hr 10/30/16 18:00 11/02/16 17:45 IVPB 200 mls/hr Q8H-IV [facility] Administration Fluconazole 50 mls @ 50 mls/hr 10/31/16 10:00 11/02/16 11:07 Diflucan 100 Mg/Ns Premixed Ivpb - IVPB 50 mls/hr DAILY [facility] Administration Lidocaine HCl 1 applic 10/30/16 17:00 Xylocaine 2% Jelly TP Q4H PRN PAIN Methimazole 10 mg 10/31/16 10:00 11/02/16 10:59 Tapazole - NGT 10 mg DAILY [facility] Administration Metoprolol Tartrate 50 mg 10/30/16 22:00 11/02/16 15:03 Lopressor - PO 50 mg TID [facility] Administration Mirtazapine 15 mg 10/31/16 10:00 11/02/16 11:00 Remeron - NGT 15 mg DAILY [facility] Administration Morphine Sulfate 2 mg 11/02/16 12:28 11/02/16 13:06 Morphine Injection - IVPUSH 2 mg Q4H PRN Administration PAIN Potassium Phos/Sodium Phos 1 packet 10/30/16 22:00 11/02/16 11:00 Phos-Nak Packet - PO 1 packet BID [facility] Administration Ranitidine HCl 150 mg 10/30/16 22:00 11/02/16 11:01 Zantac Oral Solution - NGT 150 mg BID [facility] Administration Scopolamine HBr 1 patch 11/01/16 19:15 Transderm-Scop - TD Q72H [facility] ASSESSMENT/PLAN: This is a 56 yr old F with PMH ALS, chronic hypercapnic resp failure, HTN, HLD, hyperthyroidism, goiter, intubated to ED via EMS due to resp arrest. In ED, pt had cardiac arrest (V tach) for 5 min, was resuscitated and stabilized, admitted to ICU. # Acute on chronic respiratory failure secondary to ALS -Trach completed (10/24/16) -s/p PEG (10/30/16) -Continue duonebs 1 amp PRN, scopolamine patch for incr. secretions -Solumedrol has been d/c -Palliative on board # Fever secondary to PNA or UTI -Pt 100.3F tmax yesterday 6pm -Continue Ceftazidime 2gm (Today is Day4), Fluconazole 100mg qdaily (Day 3) # Paroxysmal afib -Continue for rate control: -Cardizem 30 mg NGT TID -Digoxin 0.125 mg PO daily -Lopressor 50mg PO TID -Eliquis 5mg PO BID for anticoagulation has been resumed -Will continue to monitor -Cardiazem and lopressor injection meds have been d/c since she cannot be on these on floor w/o tele monitoring #Hypokalemia-resolved #Hypophosphatemia-resolved #Hyperthyroidism -Continue Methimazole 10 mg via NGT #Major Depressive Disorder -Continue Remeron 15mg via NGT # s/p Cardiac arrest in ED possibly secondary to hypoxia-resolved -Troponins negative x2 -Echo: regional wall motion abnormalities can't be ruled out. When compared to Echo 10/10/16: no wall motion abnormalities #Possible atelectasis-resolved #subtherapeutic INR- resolved # Diarrhea-resolved # Lactic acidosis secondary to cardiac arrest-resolved # Hypernatremia-resolved # Anxiety-resolved DVT prophylaxis SCD's Resumed Eliquis 5mg BID Stress ulcer prophylaxis -Continue Zantac 150 mg NGT BID F/E/N Monitor electrolytes s/p PEG, feeds have been resumed Dispo Denied for LTACH -Will F/u Visit type - Emergency Visit Emergency Visit: No - New Patient This patient is new to me today: No - Critical Care Critical Care patient: No
[2016-11-03] MEDS: CEFTAZIDIME PENTAHYDRATE 2 GM in DEXTROSE 5%-WATER - 100 ML IVPB SCH ×3 (01:58→18:31)
[2016-11-03] MEDS: dilTIAZem HCL 30 MG TABLET (FP) NGT SCH ×3 (05:12→23:12)
[2016-11-03] MEDS: ACETAMINOPHEN 325 MG TABLET (FP) PO PRN (05:12)
[2016-11-03] MEDS: METOPROLOL TARTRATE 50 MG TABLET (FP) PO SCH ×3 (05:12→23:12)
[2016-11-03] MEDS: AMINO ACIDS/PROTEIN HYDROLYS 30 ML LIQUID.PKT PO SCH ×3 (05:12→23:15)
[2016-11-03] MEDS: ALBUTEROL SO4 2.5/IPRATROPIUM 0.5 INH SOL 3 ML VIAL.NEB. NEB SCH ×3 (06:39→18:10)
[2016-11-03 07:27] LABS: MCH 29.5 pg (25.7-33.7); MCHC 32.8 g/dl (32.0-36.0); MEAN CELL VOLUME 90.2 fl (80-96); MEAN PLT VOLUME 9.9 fl (7.5-11.1); PLATELET COUNT 185 K/MM3 (134-434); RDW 14.8 % (11.6-15.6); WHITE BLOOD COUNT 17.3 K/mm3 (4.0-10.0)
[2016-11-03 07:47] LABS: ANION GAP 6 (8-16); CALCIUM 7.9 mg/dL (8.5-10.1); CO2 34 mmol/L (21-32); CREATININE 0.2 mg/dL (0.55-1.02); GLUCOSE,RANDOM 128 mg/dL (74-106)
[2016-11-03] MEDS ORDERED: PT OWN MED DRAWER 7, Y5N ONE ×2 (09:38→18:28)
[2016-11-03] MEDS: RANITIDINE HCL 150 MG/10 ML UNIT-DOSE CUP NGT SCH ×2 (09:44→23:15)
[2016-11-03] MEDS: METHIMAZOLE 10 MG TABLET (FP) NGT SCH (09:44)
[2016-11-03] MEDS: FUROSEMIDE 20 MG TABLET (FP) PO SCH (09:44)
[2016-11-03] MEDS: DIGOXIN 0.125 MG TABLET (FP) PO SCH (09:44)
[2016-11-03] MEDS: MIRTAZAPINE 15 MG TABLET (FP) NGT SCH (09:45)
[2016-11-03] MEDS: BACITRACIN 15 GM TUBE TOPICAL OINTMENT TP SCH (09:45)
[2016-11-03] MEDS: APIXABAN 5 MG TABLET PO SCH ×2 (09:45→23:12)
[2016-11-03] MEDS: CHLORHEXIDINE GLUCONATE 0.12% 15ML CUP MM SCH ×2 (09:46→23:12)
[2016-11-03] MEDS: NAPH,MB-DB/K PH,MBDB POWDER PACKET PO SCH ×2 (09:46→23:12)
--- NOTE | 2016-11-03 10:32 | PN ---
Progress Note (short form) - Note Progress Note: resting comfortable Current Medications Generic Name Dose Route Start Last Admin Trade Name Freq PRN Reason Stop Dose Admin Acetaminophen 650 mg 10/30/16 17:00 11/03/16 05:12 Tylenol - PO 650 mg Q4H PRN Administration FEVER OR PAIN Albuterol/Ipratropium 1 amp 10/30/16 18:00 11/03/16 06:39 Duoneb - NEB 1 amp QIDR [facility] Administration Amino Acids 30 ml 11/02/16 14:00 11/03/16 05:12 Prosource No Carb Liquid Pkt PO 30 ml TID [facility] Administration Apixaban 5 mg 11/01/16 22:00 11/03/16 09:45 Eliquis - PO 5 mg BID [facility] Administration Bacitracin 1 applic 10/31/16 10:00 11/03/16 09:45 Bacitracin - TP Not Given DAILY [facility] Chlorhexidine Gluconate 15 ml 10/30/16 22:00 11/03/16 09:46 Peridex - MM 15 ml BID [facility] Administration Digoxin 0.125 mg 10/31/16 10:00 11/03/16 09:44 Lanoxin - PO 0.125 mg DAILY [facility] Administration Diltiazem HCl 30 mg 10/30/16 22:00 11/03/16 05:12 Cardizem - NGT 30 mg TID [facility] Administration Furosemide 20 mg 11/01/16 14:45 11/03/16 09:44 Lasix - PO 20 mg DAILY [facility] Administration Ceftazidime 2 gm/ Dextrose 100 mls @ 200 mls/hr 10/30/16 18:00 11/03/16 09:45 IVPB 200 mls/hr Q8H-IV [facility] Administration Fluconazole 50 mls @ 50 mls/hr 10/31/16 10:00 11/02/16 11:07 Diflucan 100 Mg/Ns Premixed Ivpb - IVPB 50 mls/hr DAILY [facility] Administration Lidocaine HCl 1 applic 10/30/16 17:00 Xylocaine 2% Jelly TP Q4H PRN PAIN Methimazole 10 mg 10/31/16 10:00 11/03/16 09:44 Tapazole - NGT 10 mg DAILY [facility] Administration Metoprolol Tartrate 50 mg 10/30/16 22:00 11/03/16 05:12 Lopressor - PO 50 mg TID [facility] Administration Mirtazapine 15 mg 10/31/16 10:00 11/03/16 09:45 Remeron - NGT 15 mg DAILY [facility] Administration Morphine Sulfate 2 mg 11/02/16 12:28 11/02/16 22:25 Morphine Injection - IVPUSH 2 mg Q4H PRN Administration PAIN Potassium Phos/Sodium Phos 1 packet 10/30/16 22:00 11/03/16 09:46 Phos-Nak Packet - PO 1 packet BID [facility] Administration Ranitidine HCl 150 mg 10/30/16 22:00 11/03/16 09:44 Zantac Oral Solution - NGT 150 mg BID [facility] Administration Scopolamine HBr 1 patch 11/01/16 19:15 Transderm-Scop - TD Q72H [facility] Last Vital Signs Temp Pulse Resp BP Pulse Ox 101.5 F H 101 H 16 138/85 100 11/03/16 05:35 11/03/16 09:44 11/03/16 06:38 11/03/16 06:00 11/02/16 20:00 General NAD, more lethargic than yesterday CV S1 S2 + no murmur Lungs diffuse coarse breath sounds Abdomen soft NT/ND obese Extremities no pedal edema CBCD WBC 17.3 K/mm3 (4.0-10.0) H 11/03/16 06:15 RBC 3.45 M/mm3 (3.60-5.2) L 11/03/16 06:15 Hgb 10.2 GM/dL (10.7-15.3) L 11/03/16 06:15 Hct 31.1 % (32.4-45.2) L 11/03/16 06:15 MCV 90.2 fl (80-96) 11/03/16 06:15 MCHC 32.8 g/dl (32.0-36.0) 11/03/16 06:15 RDW 14.8 % (11.6-15.6) 11/03/16 06:15 Plt Count 185 K/MM3 (134-434) 11/03/16 06:15 MPV 9.9 fl (7.5-11.1) 11/03/16 06:15 CMP Sodium 138 mmol/L (136-145) 11/03/16 06:15 Potassium 3.2 mmol/L (3.5-5.1) L 11/03/16 06:15 Chloride 98 mmol/L (98-107) 11/03/16 06:15 Carbon Dioxide 34 mmol/L (21-32) H 11/03/16 06:15 Anion Gap 6 (8-16) L 11/03/16 06:15 BUN 15 mg/dL (7-18) 11/03/16 06:15 Creatinine 0.2 mg/dL (0.55-1.02) L 11/03/16 06:15 Creat Clearance w eGFR > 60 (>60) 10/30/16 05:15 Calcium 7.9 mg/dL (8.5-10.1) L 11/03/16 06:15 Total Bilirubin 0.3 mg/dL (0.2-1.0) 10/30/16 05:15 AST 5 U/L (15-37) L D 10/30/16 05:15 ALT 14 U/L (12-78) D 10/30/16 05:15 Alkaline Phosphatase 87 U/L (45-117) D 10/30/16 05:15 Total Protein 5.0 g/dl (6.4-8.2) L D 10/30/16 05:15 Albumin 2.0 g/dl (3.4-5.0) L 10/30/16 05:15 ASSESSMENT AND PLAN: 56-year-old woman with a history of ALS, chronic hypercapnic respiratory failure , HTN, hyperthyroidism, atrial fib, hyperlipidemia who was brought in to the ER after being intubated by EMS for acute respiratory distress and subsequently had cardiac arrest in the ER. 1. s/p cardiac arrest, secondary to hypoxia vs electrolyte abnormality 2. Acute on chronic hypoxic and hypercapnic respiratory failure- due to progression of ALS. has failed daily CPAP trials and trach on 10/25. hold cpap trials today given fevers and possible worsening PNA. was started on scopolamine patch with improvement in secretions. cont frequent suctioning. chest PT, frequent suctioning 3. dysphagia- s/p PEG placement 10/29. tolerated PEG feeds. cont to monitor 4. Sepsis due to worsening PNA vs UTI- Tm 101.5. worsening leukocytosis while off steroids. sepsis workup initiated. will check CXR. call placed out to ID for possible broaden abx. has pseudomonas in urine may need double antibiotic coverage. changes per ID. on difulcan & ceftazidime. abx per ID. f/u Cx and UA 5. Hypokalemia-Kcl 10meq 6. Hypophosphatemia-resolved 7. HTN Continue Cardizem, Lopressor 8. Paroxysmal atrial fibrillation/flutter with RVR- rate controlled. on eliquis 9. Hyperlipidemia 10. Hyperglycemia-likely steroid induced A1c 4.3. now resolved since steroids are d/c. 11. Depression- Continue Remeron 12. ALS 13. DVT prophylaxis- On Eliquis 14. would benefit from transfer to LTAC facility as will likely be difficult to wean off full vent support. has failed multiple cpap trials and needs aggressive vent management that would be provided at LTAC facility. plan d/w sister sitting bedside. answered all questions. verbalized agreement the [facility] plan Visit type - Emergency Visit Emergency Visit: Yes ED Registration Date: 10/15/16 Care time: The patient presented to the Emergency Department on the above date and was hospitalized for further evaluation of their emergent condition. - New Patient This patient is new to me today: No - Critical Care Critical Care patient: No - Discharge Referral Referred to [facility] Med [facility] No
[2016-11-03] MEDS: FLUCONAZOLE 100 MG/NS 50 ML IVPB SCH (11:08)
[2016-11-03] MEDS: KCL 10 MEQ IVPB 100 ML IVPB SCH ×2 (12:46→14:06)
--- NOTE | 2016-11-03 12:53 | PN ---
Progress Note (short form) - Note Progress Note: Trached and vented. Awake and responsive. Low grade fevers. CXR : Improving Right > Left Intake & Output 10/31/16 11/01/16 11/02/16 11/03/16 23:59 23:59 23:59 23:59 Intake Total 3650 618 6755 1010 Output Total 100 Balance 8108 348 4951 1010 Weight 170 lb 6 oz 165 lb 14.4 oz 184 lb 182 lb 6 oz Last Vital Signs Temp Pulse Resp BP Pulse Ox 100.4 F H 82 18 112/68 97 11/03/16 09:00 11/03/16 10:30 11/03/16 10:30 11/03/16 09:00 11/03/16 11:03 Active Medications Acetaminophen (Tylenol -) 650 mg PO Q4H PRN PRN Reason: FEVER OR PAIN Last Admin: 11/03/16 05:12 Dose: 650 mg Albuterol/Ipratropium (Duoneb -) 1 amp NEB QIDR [facility] Last Admin: 11/03/16 11:03 Dose: 1 amp Amino Acids (Prosource No Carb Liquid Pkt) 30 ml PO TID [facility] Last Admin: 11/03/16 05:12 Dose: 30 ml Apixaban (Eliquis -) 5 mg PO BID [facility] Last Admin: 11/03/16 09:45 Dose: 5 mg Bacitracin (Bacitracin -) 1 applic TP DAILY [facility] Last Admin: 11/03/16 09:45 Dose: Not Given Chlorhexidine Gluconate (Peridex -) 15 ml MM BID [facility] Last Admin: 11/03/16 09:46 Dose: 15 ml Digoxin (Lanoxin -) 0.125 mg PO DAILY [facility] Last Admin: 11/03/16 09:44 Dose: 0.125 mg Diltiazem HCl (Cardizem -) 30 mg NGT TID [facility] Last Admin: 11/03/16 05:12 Dose: 30 mg Furosemide (Lasix -) 20 mg PO DAILY [facility] Last Admin: 11/03/16 09:44 Dose: 20 mg Ceftazidime 2 gm/ Dextrose 100 mls @ 200 mls/hr IVPB Q8H-IV [facility] Last Admin: 11/03/16 09:45 Dose: 200 mls/hr Fluconazole (Diflucan 100 Mg/Ns Premixed Ivpb -) 50 mls @ 50 mls/hr IVPB DAILY [facility] Last Admin: 11/03/16 11:08 Dose: 50 mls/hr Potassium Chloride (Potassium Chloride 10 Meq Premix Ivpb -) 100 mls @ 100 mls/ hr IVPB Q60M [facility] Stop: 11/03/16 13:29 Last Admin: 11/03/16 12:46 Dose: 100 mls/hr Lidocaine HCl (Xylocaine 2% Jelly) 1 applic TP Q4H PRN PRN Reason: PAIN Methimazole (Tapazole -) 10 mg NGT DAILY [facility] Last Admin: 11/03/16 09:44 Dose: 10 mg Metoprolol Tartrate (Lopressor -) 50 mg PO TID [facility] Last Admin: 11/03/16 05:12 Dose: 50 mg Mirtazapine (Remeron -) 15 mg NGT DAILY [facility] Last Admin: 11/03/16 09:45 Dose: 15 mg Morphine Sulfate (Morphine Injection -) 2 mg IVPUSH Q4H PRN PRN Reason: PAIN Last Admin: 11/02/16 22:25 Dose: 2 mg Potassium Phos/Sodium Phos (Phos-Nak Packet -) 1 packet PO BID [facility] Last Admin: 11/03/16 09:46 Dose: 1 packet Ranitidine HCl (Zantac Oral Solution -) 150 mg NGT BID [facility] Last Admin: 11/03/16 09:44 Dose: 150 mg Scopolamine HBr (Transderm-Scop -) 1 patch TD Q72H [facility] Gen: Trached, vented, awake Heart: RRR Lung: Scattered bilateral rhonchi Abd: soft, nontender Ext: no edema Laboratory Results - last 24 hr 11/02/16 11/02/16 11/03/16 14:15 16:42 06:15 WBC 17.3 H RBC 3.45 L Hgb 10.2 L Hct 31.1 L MCV 90.2 MCH 29.5 MCHC 32.8 RDW 14.8 Plt Count 185 MPV 9.9 Sodium Potassium Chloride Carbon Dioxide Anion Gap BUN Creatinine POC Glucometer 130 Random Glucose Calcium Urine Color Straw Urine Appearance Clear Urine pH 8.0 Ur Specific [place] 1.015 Urine Protein Negative Urine Glucose (UA) Negative Urine Ketones Negative Urine Blood 1+ H Urine Nitrite Negative Urine Bilirubin Negative Urine Urobilinogen Negative Ur Leukocyte Esterase Negative Urine RBC 2 Urine WBC 4 Ur Epithelial Cells Moderate Urine Bacteria Rare Urine Mucus Rare 11/03/16 06:15 WBC RBC Hgb Hct MCV MCH MCHC RDW Plt Count MPV Sodium 138 Potassium 3.2 L Chloride 98 Carbon Dioxide 34 H Anion Gap 6 L BUN 15 Creatinine 0.2 L POC Glucometer Random Glucose 128 H Calcium 7.9 L Urine Color Urine Appearance Urine pH Ur Specific [place] Urine Protein Urine Glucose (UA) Urine Ketones Urine Blood Urine Nitrite Urine Bilirubin Urine Urobilinogen Ur Leukocyte Esterase Urine RBC Urine WBC Ur Epithelial Cells Urine Bacteria Urine Mucus ASSESSMENT AND PLAN: Acute on Chronic Hypoxic and Hypercapneic Respiratory Failure s/p Cardiac Arrest likely from Respiratory Failure Pneumonia / VAP Sepsis Lactic Acidosis resolved Advanced ALS Paroxysmal Atrial Fibrillation with RVR HTN Hyperthyroidism - ABX per ID - rate control with metoprolol - AC - replete lytes - enteral feeds - spontaneous breathing trials as tolerated - continue discussions regarding goals of care, advanced directives Dr Grant
--- NOTE | 2016-11-03 14:43 | PN ---
Progress Note, Physician History of Present Illness: Awake. Indicates no pain No acute distress Continued fever, leukocytosis Sputum c/s mixed Urine c/s Pseudomonas - Current Medication List Current Medications: Active Medications Acetaminophen (Tylenol -) 650 mg PO Q4H PRN PRN Reason: FEVER OR PAIN Last Admin: 11/03/16 05:12 Dose: 650 mg Albuterol/Ipratropium (Duoneb -) 1 amp NEB QIDR [facility] Last Admin: 11/03/16 11:03 Dose: 1 amp Amino Acids (Prosource No Carb Liquid Pkt) 30 ml PO TID [facility] Last Admin: 11/03/16 14:06 Dose: 30 ml Apixaban (Eliquis -) 5 mg PO BID [facility] Last Admin: 11/03/16 09:45 Dose: 5 mg Bacitracin (Bacitracin -) 1 applic TP DAILY [facility] Last Admin: 11/03/16 09:45 Dose: Not Given Chlorhexidine Gluconate (Peridex -) 15 ml MM BID [facility] Last Admin: 11/03/16 09:46 Dose: 15 ml Digoxin (Lanoxin -) 0.125 mg PO DAILY [facility] Last Admin: 11/03/16 09:44 Dose: 0.125 mg Diltiazem HCl (Cardizem -) 30 mg NGT TID [facility] Last Admin: 11/03/16 14:07 Dose: 30 mg Furosemide (Lasix -) 20 mg PO DAILY [facility] Last Admin: 11/03/16 09:44 Dose: 20 mg Ceftazidime 2 gm/ Dextrose 100 mls @ 200 mls/hr IVPB Q8H-IV [facility] Last Admin: 11/03/16 09:45 Dose: 200 mls/hr Fluconazole (Diflucan 100 Mg/Ns Premixed Ivpb -) 50 mls @ 50 mls/hr IVPB DAILY [facility] Last Admin: 11/03/16 11:08 Dose: 50 mls/hr Lidocaine HCl (Xylocaine 2% Jelly) 1 applic TP Q4H PRN PRN Reason: PAIN Methimazole (Tapazole -) 10 mg NGT DAILY [facility] Last Admin: 11/03/16 09:44 Dose: 10 mg Metoprolol Tartrate (Lopressor -) 50 mg PO TID [facility] Last Admin: 11/03/16 14:06 Dose: 50 mg Mirtazapine (Remeron -) 15 mg NGT DAILY [facility] Last Admin: 11/03/16 09:45 Dose: 15 mg Morphine Sulfate (Morphine Injection -) 2 mg IVPUSH Q4H PRN PRN Reason: PAIN Last Admin: 11/02/16 22:25 Dose: 2 mg Potassium Phos/Sodium Phos (Phos-Nak Packet -) 1 packet PO BID [facility] Last Admin: 11/03/16 09:46 Dose: 1 packet Ranitidine HCl (Zantac Oral Solution -) 150 mg NGT BID [facility] Last Admin: 11/03/16 09:44 Dose: 150 mg Scopolamine HBr (Transderm-Scop -) 1 patch TD Q72H [facility] - Objective Vital Signs: Vital Signs Temperature 100.4 F H 11/03/16 09:00 Pulse Rate 82 11/03/16 10:30 Respiratory Rate 20 11/03/16 14:12 Blood Pressure 112/68 11/03/16 09:00 O2 Sat by Pulse Oximetry (%) 97 11/03/16 11:03 Constitutional: Yes: No Distress Eyes: Yes: Conjunctiva Clear Cardiovascular: Yes: Regular Rate and Rhythm, S1, S2 Respiratory: Yes: Mechanically Ventilated Gastrointestinal: Yes: Normal Bowel Sounds, Soft. No: Tenderness Edema: Yes Labs: CBC, BMP 11/03/16 06:15 11/03/16 06:15 INR, PTT INR 1.30 (0.82-1.09) H 10/28/16 17:45 Assessment/Plan Fever/ leukocytosis Respiratory failure Pneumonia/ atelectasis UTI ALS S/P cardiopulmonary arrest Continue ceftazidime
[2016-11-04] MEDS: ALBUTEROL SO4 2.5/IPRATROPIUM 0.5 INH SOL 3 ML VIAL.NEB. NEB SCH ×5 (00:21→23:10)
[2016-11-04] MEDS: CEFTAZIDIME PENTAHYDRATE 2 GM in DEXTROSE 5%-WATER - 100 ML IVPB SCH ×3 (02:07→18:33)
[2016-11-04] MEDS: METOPROLOL TARTRATE 50 MG TABLET (FP) PO SCH ×2 (06:33→15:06)
[2016-11-04] MEDS: dilTIAZem HCL 30 MG TABLET (FP) NGT SCH ×2 (06:33→15:06)
[2016-11-04] MEDS: AMINO ACIDS/PROTEIN HYDROLYS 30 ML LIQUID.PKT PO SCH ×2 (06:33→14:55)
[2016-11-04 07:36] LABS: MCH 30.1 pg (25.7-33.7); MCHC 33.3 g/dl (32.0-36.0); MEAN CELL VOLUME 90.3 fl (80-96); MEAN PLT VOLUME 9.7 fl (7.5-11.1); PLATELET COUNT 169 K/MM3 (134-434); RDW 14.4 % (11.6-15.6); WHITE BLOOD COUNT 11.5 K/mm3 (4.0-10.0)
[2016-11-04] MEDS: SCOPOLAMINE HYDROBROMIDE 1 PATCH PATCH.TD72 TD SCH ×2 (07:47→18:34)
[2016-11-04 07:58] LABS: ALK PHOS 130 U/L (45-117); ANION GAP 5 (8-16); BILIRUBIN,TOTAL 0.2 mg/dL (0.2-1.0); CO2 35 mmol/L (21-32); CREATININE 0.2 mg/dL (0.55-1.02); GLUCOSE,RANDOM 120 mg/dL (74-106); MAGNESIUM 1.8 mg/dL (1.8-2.4); PHOSPHOROUS 2.5 mg/dL (2.5-4.9); SGOT/AST 14 U/L (15-37); SGPT/ALT 30 U/L (12-78); TOT PROT 5.3 g/dl (6.4-8.2)
[2016-11-04] MEDS ORDERED: POTASSIUM CHLORIDE ORAL LIQUID 20 MEQ/15 ML PO ONE (09:00)
[2016-11-04] MEDS ORDERED: PT OWN MED DRAWER 7, Y5N ONE ×4 (09:37→20:47)
[2016-11-04] MEDS: RANITIDINE HCL 150 MG/10 ML UNIT-DOSE CUP NGT SCH (09:39)
[2016-11-04] MEDS: MIRTAZAPINE 15 MG TABLET (FP) NGT SCH (09:41)
[2016-11-04] MEDS: FUROSEMIDE 20 MG TABLET (FP) PO SCH (09:41)
[2016-11-04] MEDS: DIGOXIN 0.125 MG TABLET (FP) PO SCH (09:41)
[2016-11-04] MEDS: CHLORHEXIDINE GLUCONATE 0.12% 15ML CUP MM SCH ×2 (09:42→21:21)
[2016-11-04] MEDS: BACITRACIN 15 GM TUBE TOPICAL OINTMENT TP SCH (09:42)
[2016-11-04] MEDS: NAPH,MB-DB/K PH,MBDB POWDER PACKET PO SCH (09:42)
[2016-11-04] MEDS: METHIMAZOLE 10 MG TABLET (FP) NGT SCH (09:43)
[2016-11-04] MEDS: ACETAMINOPHEN 325 MG TABLET (FP) PO PRN (09:44)
[2016-11-04] MEDS: APIXABAN 5 MG TABLET PO SCH (09:44)
[2016-11-04] MEDS: FLUCONAZOLE 100 MG/NS 50 ML IVPB SCH (09:47)
[2016-11-04] MEDS ORDERED: ACETAMINOPHEN 650 MG/20.3 ML ORAL SOLUTION (CUPS) PO PRN (10:21)
[2016-11-04 12:30] LABS: METAMYELOCYTE 1 % (0-2); PLATELET ESTIMATE ADEQUATE (NORMAL)
--- NOTE | 2016-11-04 12:56 | PN ---
Progress Note (short form) - Note Progress Note: Trached and vented. Awake and responsive. Low grade fevers persist. Abdominal Xray : Ileus / no free air / LLL opacity Intake & Output 11/01/16 11/02/16 11/03/16 11/04/16 23:59 23:59 23:59 23:59 Intake Total 950 2535 2880 1010 Output Total 100 Balance 950 2435 2880 1010 Weight 165 lb 14.4 oz 184 lb 182 lb 6 oz 186 lb 3.2 oz Last Vital Signs Temp Pulse Resp BP Pulse Ox 100.8 F H 53 L 22 122/71 97 11/04/16 09:30 11/04/16 10:08 11/04/16 11:10 11/04/16 09:30 11/04/16 11:10 Active Medications Acetaminophen (Tylenol Oral Solution -) 650 mg PO Q4H PRN PRN Reason: FEVER OR PAIN Albuterol/Ipratropium (Duoneb -) 1 amp NEB QIDR [facility] Last Admin: 11/04/16 11:11 Dose: 1 amp Amino Acids (Prosource No Carb Liquid Pkt) 30 ml PO TID [facility] Last Admin: 11/04/16 06:33 Dose: 30 ml Apixaban (Eliquis -) 5 mg PO BID [facility] Last Admin: 11/04/16 09:44 Dose: 5 mg Bacitracin (Bacitracin -) 1 applic TP DAILY [facility] Last Admin: 11/04/16 09:42 Dose: 1 applic Chlorhexidine Gluconate (Peridex -) 15 ml MM BID [facility] Last Admin: 11/04/16 09:42 Dose: 15 ml Digoxin (Lanoxin -) 0.125 mg PO DAILY [facility] Last Admin: 11/04/16 09:41 Dose: 0.125 mg Diltiazem HCl (Cardizem -) 30 mg NGT TID [facility] Last Admin: 11/04/16 06:33 Dose: 30 mg Furosemide (Lasix -) 20 mg PO DAILY [facility] Last Admin: 11/04/16 09:41 Dose: 20 mg Ceftazidime 2 gm/ Dextrose 100 mls @ 200 mls/hr IVPB Q8H-IV [facility] Last Admin: 11/04/16 09:41 Dose: 200 mls/hr Fluconazole (Diflucan 100 Mg/Ns Premixed Ivpb -) 50 mls @ 50 mls/hr IVPB DAILY [facility] Last Admin: 11/04/16 09:47 Dose: 50 mls/hr Lidocaine HCl (Xylocaine 2% Jelly) 1 applic TP Q4H PRN PRN Reason: PAIN Methimazole (Tapazole -) 10 mg NGT DAILY [facility] Last Admin: 11/04/16 09:43 Dose: 10 mg Metoprolol Tartrate (Lopressor -) 50 mg PO TID [facility] Last Admin: 11/04/16 06:33 Dose: 50 mg Mirtazapine (Remeron -) 15 mg NGT DAILY [facility] Last Admin: 11/04/16 09:41 Dose: 15 mg Morphine Sulfate (Morphine Injection -) 2 mg IVPUSH Q4H PRN PRN Reason: PAIN Last Admin: 11/02/16 22:25 Dose: 2 mg Potassium Phos/Sodium Phos (Phos-Nak Packet -) 1 packet PO BID [facility] Last Admin: 11/04/16 09:42 Dose: 1 packet Ranitidine HCl (Zantac Oral Solution -) 150 mg NGT BID [facility] Last Admin: 11/04/16 09:39 Dose: 150 mg Scopolamine HBr (Transderm-Scop -) 1 patch TD Q72H [facility] Last Admin: 11/04/16 07:47 Dose: Not Given Gen: Trached, vented, awake Heart: RRR Lung: Scattered bilateral rhonchi Abd: softly distended, nontender, (+) BS Ext: no edema Laboratory Results - last 24 hr 11/04/16 11/04/16 06:20 06:20 WBC 11.5 H D RBC 3.30 L Hgb 9.9 L Hct 29.8 L MCV 90.3 MCH 30.1 MCHC 33.3 RDW 14.4 Plt Count 169 MPV 9.7 Neutrophils % 89.0 H Lymphocytes % 7.0 L D Monocytes % 3.0 L D Metamyelocytes 1 Differential Comment Manual diff done Platelet Estimate Adequate Sodium 140 Potassium 3.3 L Chloride 100 Carbon Dioxide 35 H Anion Gap 5 L BUN 20 H D Creatinine 0.2 L Creat Clearance w eGFR > 60 Random Glucose 120 H Calcium 8.0 L Phosphorus 2.5 Magnesium 1.8 Total Bilirubin 0.2 D AST 14 L D ALT 30 D Alkaline Phosphatase 130 H D Total Protein 5.3 L Albumin 2.0 L ASSESSMENT AND PLAN: Acute on Chronic Hypoxic and Hypercapneic Respiratory Failure s/p Cardiac Arrest likely from Respiratory Failure Pneumonia / VAP Sepsis Lactic Acidosis resolved Advanced ALS Paroxysmal Atrial Fibrillation with RVR HTN Hyperthyroidism - ABX per ID - rate control with metoprolol - AC - replete lytes - Hold feeds -> GI follow up - spontaneous breathing trials as tolerated - continue discussions regarding goals of care, advanced directives Dr Grant
--- NOTE | 2016-11-04 13:51 | PN ---
Progress Note (short form) - Note Progress Note: resting comfortable Current Medications Generic Name Dose Route Start Last Admin Trade Name Freq PRN Reason Stop Dose Admin Acetaminophen 650 mg 11/04/16 10:21 Tylenol Oral Solution - PO Q4H PRN FEVER OR PAIN Albuterol/Ipratropium 1 amp 10/30/16 18:00 11/04/16 11:11 Duoneb - NEB 1 amp QIDR [facility] Administration Amino Acids 30 ml 11/02/16 14:00 11/04/16 06:33 Prosource No Carb Liquid Pkt PO 30 ml TID [facility] Administration Apixaban 5 mg 11/01/16 22:00 11/04/16 09:44 Eliquis - PO 5 mg BID [facility] Administration Bacitracin 1 applic 10/31/16 10:00 11/04/16 09:42 Bacitracin - TP 1 applic DAILY [facility] Administration Chlorhexidine Gluconate 15 ml 10/30/16 22:00 11/04/16 09:42 Peridex - MM 15 ml BID [facility] Administration Digoxin 0.125 mg 10/31/16 10:00 11/04/16 09:41 Lanoxin - PO 0.125 mg DAILY [facility] Administration Diltiazem HCl 30 mg 10/30/16 22:00 11/04/16 06:33 Cardizem - NGT 30 mg TID [facility] Administration Furosemide 20 mg 11/01/16 14:45 11/04/16 09:41 Lasix - PO 20 mg DAILY [facility] Administration Ceftazidime 2 gm/ Dextrose 100 mls @ 200 mls/hr 10/30/16 18:00 11/04/16 09:41 IVPB 200 mls/hr Q8H-IV [facility] Administration Fluconazole 50 mls @ 50 mls/hr 10/31/16 10:00 11/04/16 09:47 Diflucan 100 Mg/Ns Premixed Ivpb - IVPB 50 mls/hr DAILY [facility] Administration Lidocaine HCl 1 applic 10/30/16 17:00 Xylocaine 2% Jelly TP Q4H PRN PAIN Methimazole 10 mg 10/31/16 10:00 11/04/16 09:43 Tapazole - NGT 10 mg DAILY [facility] Administration Metoprolol Tartrate 50 mg 10/30/16 22:00 11/04/16 06:33 Lopressor - PO 50 mg TID [facility] Administration Mirtazapine 15 mg 10/31/16 10:00 11/04/16 09:41 Remeron - NGT 15 mg DAILY [facility] Administration Morphine Sulfate 2 mg 11/02/16 12:28 11/02/16 22:25 Morphine Injection - IVPUSH 2 mg Q4H PRN Administration PAIN Potassium Phos/Sodium Phos 1 packet 10/30/16 22:00 11/04/16 09:42 Phos-Nak Packet - PO 1 packet BID [facility] Administration Ranitidine HCl 150 mg 10/30/16 22:00 11/04/16 09:39 Zantac Oral Solution - NGT 150 mg BID [facility] Administration Scopolamine HBr 1 patch 11/01/16 19:15 11/04/16 07:47 Transderm-Scop - TD Not Given Q72H [facility] Last Vital Signs Temp Pulse Resp BP Pulse Ox 100.8 F H 53 L 22 122/71 97 11/04/16 09:30 11/04/16 10:08 11/04/16 11:10 11/04/16 09:30 11/04/16 11:10 Intake & Output 11/01/16 11/02/16 11/03/16 11/04/16 23:59 23:59 23:59 23:59 Intake Total 950 2535 2880 1010 Output Total 100 Balance 950 2435 2880 1010 Weight 165 lb 14.4 oz 184 lb 182 lb 6 oz 186 lb 3.2 oz General NAD, CV S1 S2 + no murmur Lungs diffuse coarse breath sounds Abdomen +distended, firm, no BS appreciated. mildly tender Extremities no pedal edema CBCD WBC 11.5 K/mm3 (4.0-10.0) H D 11/04/16 06:20 RBC 3.30 M/mm3 (3.60-5.2) L 11/04/16 06:20 Hgb 9.9 GM/dL (10.7-15.3) L 11/04/16 06:20 Hct 29.8 % (32.4-45.2) L 11/04/16 06:20 MCV 90.3 fl (80-96) 11/04/16 06:20 MCHC 33.3 g/dl (32.0-36.0) 11/04/16 06:20 RDW 14.4 % (11.6-15.6) 11/04/16 06:20 Plt Count 169 K/MM3 (134-434) 11/04/16 06:20 MPV 9.7 fl (7.5-11.1) 11/04/16 06:20 CMP Sodium 140 mmol/L (136-145) 11/04/16 06:20 Potassium 3.3 mmol/L (3.5-5.1) L 11/04/16 06:20 Chloride 100 mmol/L (98-107) 11/04/16 06:20 Carbon Dioxide 35 mmol/L (21-32) H 11/04/16 06:20 Anion Gap 5 (8-16) L 11/04/16 06:20 BUN 20 mg/dL (7-18) H D 11/04/16 06:20 Creatinine 0.2 mg/dL (0.55-1.02) L 11/04/16 06:20 Creat Clearance w eGFR > 60 (>60) 11/04/16 06:20 Calcium 8.0 mg/dL (8.5-10.1) L 11/04/16 06:20 Total Bilirubin 0.2 mg/dL (0.2-1.0) D 11/04/16 06:20 AST 14 U/L (15-37) L D 11/04/16 06:20 ALT 30 U/L (12-78) D 11/04/16 06:20 Alkaline Phosphatase 130 U/L (45-117) H D 11/04/16 06:20 Total Protein 5.3 g/dl (6.4-8.2) L 11/04/16 06:20 Albumin 2.0 g/dl (3.4-5.0) L 11/04/16 06:20 ASSESSMENT AND PLAN: 56-year-old woman with a history of ALS, chronic hypercapnic respiratory failure , HTN, hyperthyroidism, atrial fib, hyperlipidemia who was brought in to the ER after being intubated by EMS for acute respiratory distress and subsequently had cardiac arrest in the ER. 1. s/p cardiac arrest, secondary to hypoxia vs electrolyte abnormality 2. Acute on chronic hypoxic and hypercapnic respiratory failure- due to progression of ALS. has failed daily CPAP trials and trach on 10/25. improved. not tolerating cpap trials. repeat CXR shows clearing of vasc congestion and PNA. was started on scopolamine patch with improvement in secretions. cont frequent suctioning. chest PT, frequent suctioning 3. dysphagia- s/p PEG placement 10/29. 4. Ileus- abdominal distention noted this AM. AXR done showing ileus with no free air. NGT placed with bilious material. surgical consult. hold TF. convert all po meds to IV 4. Sepsis due to worsening PNA vs UTI- afebrile. leukocytosis improving. CXR shows improvement. on diflucan/ceftazidime. repeat UCX to see if infection clearing. abx per ID. 5. Hypokalemia-Kcl 10meq 6. Hypophosphatemia-resolved 7. HTN- controlled. on lopressor IV. monitor as unable to give cardizem on floor. may need to adjust 8. Paroxysmal atrial fibrillation/flutter with RVR- rate controlled. cant give cardizem on floor. attempt to control on lopressor IV. received digoxin today. will monitor if HR becomes uncontrolled will consider starting digoxin IV. hold eliquis will switch to lovenox. 9. Hyperlipidemia 10. Hyperglycemia-likely steroid induced A1c 4.3. 11. Depression- Continue Remeron 12. ALS 13. DVT prophylaxis- full dose lovenox Visit type - Emergency Visit Emergency Visit: Yes ED Registration Date: 10/15/16 Care time: The patient presented to the Emergency Department on the above date and was hospitalized for further evaluation of their emergent condition. - New Patient This patient is new to me today: No - Critical Care Critical Care patient: No - Discharge Referral Referred to [facility] No
[2016-11-04] MEDS ORDERED: METOPROLOL TARTRATE 5 MG/5 ML VIAL IVPUSH PRN (14:53)
[2016-11-04] MEDS ORDERED: METOPROLOL TARTRATE 5 MG/5 ML VIAL IVPUSH SCH (15:00)
[2016-11-04] MEDS ORDERED: dilTIAZem HCL 50 MG/10 ML - 10 ML VIAL IVPUSH SCH (15:00)
[2016-11-04] MEDS ORDERED: METOPROLOL TARTRATE 5 MG/5 ML VIAL IVPB PRN (15:02)
--- NOTE | 2016-11-04 16:47 | PN ---
Progress Note, Physician History of Present Illness: Awake, alert Low grade temp No acute distress - Current Medication List Current Medications: Active Medications Acetaminophen (Tylenol Oral Solution -) 650 mg PO Q4H PRN PRN Reason: FEVER OR PAIN Albuterol/Ipratropium (Duoneb -) 1 amp NEB QIDR [facility] Last Admin: 11/04/16 11:11 Dose: 1 amp Amino Acids (Prosource No Carb Liquid Pkt) 30 ml PO TID [facility] Last Admin: 11/04/16 14:55 Dose: Not Given Apixaban (Eliquis -) 5 mg PO BID [facility] Last Admin: 11/04/16 09:44 Dose: 5 mg Bacitracin (Bacitracin -) 1 applic TP DAILY [facility] Last Admin: 11/04/16 09:42 Dose: 1 applic Chlorhexidine Gluconate (Peridex -) 15 ml MM BID [facility] Last Admin: 11/04/16 09:42 Dose: 15 ml Enoxaparin Sodium (Lovenox -) 80 mg SQ BID [facility] Furosemide (Lasix Injection -) 20 mg IVPB DAILY [facility] Ceftazidime 2 gm/ Dextrose 100 mls @ 200 mls/hr IVPB Q8H-IV [facility] Last Admin: 11/04/16 09:41 Dose: 200 mls/hr Fluconazole (Diflucan 100 Mg/Ns Premixed Ivpb -) 50 mls @ 50 mls/hr IVPB DAILY [facility] Last Admin: 11/04/16 09:47 Dose: 50 mls/hr Dextrose (D5w -) 1,000 mls @ 42 mls/hr IV Q23H [facility] Lidocaine HCl (Xylocaine 2% Jelly) 1 applic TP Q4H PRN PRN Reason: PAIN Metoprolol Tartrate (Lopressor Injection -) 5 mg IVPB Q4H PRN PRN Reason: TACHYCARDIA Metoprolol Tartrate (Lopressor Injection -) 5 mg IVPB Q8H-IV [facility] Morphine Sulfate (Morphine Injection -) 2 mg IVPUSH Q4H PRN PRN Reason: PAIN Last Admin: 11/02/16 22:25 Dose: 2 mg Potassium Phos/Sodium Phos (Phos-Nak Packet -) 1 packet PO BID [facility] Last Admin: 11/04/16 09:42 Dose: 1 packet Ranitidine HCl (Zantac Oral Solution -) 150 mg NGT BID [facility] Last Admin: 11/04/16 09:39 Dose: 150 mg Scopolamine HBr (Transderm-Scop -) 1 patch TD Q72H [facility] Last Admin: 11/04/16 07:47 Dose: Not Given - Objective Vital Signs: Vital Signs Temperature 99.3 F 11/04/16 15:26 Pulse Rate 80 11/04/16 15:26 Respiratory Rate 14 11/04/16 15:26 Blood Pressure 140/78 11/04/16 15:26 O2 Sat by Pulse Oximetry (%) 97 11/04/16 11:10 Constitutional: Yes: No Distress Eyes: Yes: Conjunctiva Clear Cardiovascular: Yes: Regular Rate and Rhythm, S1, S2 Respiratory: Yes: Mechanically Ventilated Gastrointestinal: Yes: Normal Bowel Sounds, Soft. No: Tenderness Edema: Yes Edema: LLE: 1+, RLE: 1+ Labs: CBC, BMP 11/04/16 06:20 11/04/16 06:20 INR, PTT INR 1.30 (0.82-1.09) H 10/28/16 17:45 Assessment/Plan Fever/ leukocytosis Respiratory failure Pneumonia/ atelectasis UTI ALS S/P cardiopulmonary arrest Continue ceftazidime
[2016-11-04] MEDS: DEXTROSE 5%-WATER - 1,000 ML IV SCH (17:16)
[2016-11-04] MEDS: METOPROLOL TARTRATE 5 MG/5 ML VIAL IVPB SCH (17:17)
[2016-11-04] MEDS: ENOXAPARIN NA (PORCINE) 80 MG/0.8 ML DISP.SYRIN SQ SCH (21:20)
[2016-11-05] MEDS: METOPROLOL TARTRATE 5 MG/5 ML VIAL IVPB SCH ×3 (01:15→17:43)
[2016-11-05] MEDS: CEFTAZIDIME PENTAHYDRATE 2 GM in DEXTROSE 5%-WATER - 100 ML IVPB SCH ×3 (01:15→11:33)
[2016-11-05] MEDS ORDERED: ACETAMINOPHEN 1000 MG/100 ML VIAL (NON FORMULARY) IVPB PRN (06:00)
[2016-11-05] MEDS: ALBUTEROL SO4 2.5/IPRATROPIUM 0.5 INH SOL 3 ML VIAL.NEB. NEB SCH ×3 (06:35→18:38)
[2016-11-05] MEDS: IBUPROFEN 800 MG/8 ML IJ IVPB PRN (06:46)
[2016-11-05] MEDS ORDERED: PT OWN MED DRAWER 7, Y5N ONE (10:54)
[2016-11-05] MEDS: ENOXAPARIN NA (PORCINE) 80 MG/0.8 ML DISP.SYRIN SQ SCH ×2 (11:11→22:29)
[2016-11-05] MEDS: FUROSEMIDE 40 MG/4 ML INJECTABLE VIAL IVPB SCH (11:11)
[2016-11-05] MEDS: CHLORHEXIDINE GLUCONATE 0.12% 15ML CUP MM SCH ×2 (11:13→22:29)
[2016-11-05] MEDS: FLUCONAZOLE 100 MG/NS 50 ML IVPB SCH (11:14)
--- NOTE | 2016-11-05 11:25 | PN ---
Progress Note (short form) - Note Progress Note: PULMONARY Vented on volume assist control with 50% FiO2. Low grade temps overnight. Last Vital Signs Temp Pulse Resp BP Pulse Ox 99.1 F 99 H 15 122/88 98 11/05/16 11:08 11/05/16 11:12 11/05/16 11:08 11/05/16 11:12 11/05/16 09:15 Gen: vented, poorly responsive Heart: RRR Lung: decreased breath sounds at the bases Abd: soft, nontender Ext: no edema CBC, BMP 11/04/16 06:20 11/04/16 06:20 Active Medications Albuterol/Ipratropium (Duoneb -) 1 amp NEB QIDR [facility] Last Admin: 11/05/16 06:35 Dose: 1 amp Bacitracin (Bacitracin -) 1 applic TP DAILY [facility] Last Admin: 11/04/16 09:42 Dose: 1 applic Chlorhexidine Gluconate (Peridex -) 15 ml MM BID [facility] Last Admin: 11/05/16 11:13 Dose: 15 ml Enoxaparin Sodium (Lovenox -) 80 mg SQ BID [facility] Last Admin: 11/05/16 11:11 Dose: 80 mg Furosemide (Lasix Injection -) 20 mg IVPB DAILY [facility] Last Admin: 11/05/16 11:11 Dose: 20 mg Dextrose (D5w -) 1,000 mls @ 42 mls/hr IV Q23H [facility] Last Admin: 11/04/16 17:16 Dose: 42 mls/hr Ibuprofen (Caldolor Injection -) 400 mg IVPB Q6H PRN PRN Reason: FEVER Last Admin: 11/05/16 06:46 Dose: 400 mg Lidocaine HCl (Xylocaine 2% Jelly) 1 applic TP Q4H PRN PRN Reason: PAIN Metoprolol Tartrate (Lopressor Injection -) 5 mg IVPB Q4H PRN PRN Reason: TACHYCARDIA Metoprolol Tartrate (Lopressor Injection -) 5 mg IVPB Q8H-IV [facility] Last Admin: 11/05/16 11:12 Dose: 5 mg Morphine Sulfate (Morphine Injection -) 2 mg IVPUSH Q4H PRN PRN Reason: PAIN Last Admin: 11/02/16 22:25 Dose: 2 mg Scopolamine HBr (Transderm-Scop -) 1 patch TD Q72H [facility] Last Admin: 11/04/16 18:34 Dose: 1 patch A/P Acute on Chronic Hypoxic and Hypercapneic Respiratory Failure s/p Tracheostomy s/p Cardiac Arrest likely from Respiratory Failure Pneumonia / VAP Sepsis Lactic Acidosis resolved Advanced ALS Paroxysmal Atrial Fibrillation with RVR HTN Hyperthyroidism - antibiotics per ID - rate control with metoprolol - continue anticoagulation - spontaneous breathing trials as tolerated, placed on SIMV - continue discussions regarding goals of care, advanced directives
--- NOTE | 2016-11-05 11:27 | PN ---
Progress Note, Physician Chief Complaint: ID Ceftazidime and fluconazole Low grade temps on and off since admission NO fever "spikes" NAD vented - Current Medication List Current Medications: Active Medications Albuterol/Ipratropium (Duoneb -) 1 amp NEB QIDR [facility] Last Admin: 11/05/16 06:35 Dose: 1 amp Bacitracin (Bacitracin -) 1 applic TP DAILY [facility] Last Admin: 11/04/16 09:42 Dose: 1 applic Chlorhexidine Gluconate (Peridex -) 15 ml MM BID [facility] Last Admin: 11/05/16 11:13 Dose: 15 ml Enoxaparin Sodium (Lovenox -) 80 mg SQ BID [facility] Last Admin: 11/05/16 11:11 Dose: 80 mg Furosemide (Lasix Injection -) 20 mg IVPB DAILY [facility] Last Admin: 11/05/16 11:11 Dose: 20 mg Ceftazidime 2 gm/ Dextrose 100 mls @ 200 mls/hr IVPB Q8H-IV [facility] Last Admin: 11/05/16 11:13 Dose: 200 mls/hr Fluconazole (Diflucan 100 Mg/Ns Premixed Ivpb -) 50 mls @ 50 mls/hr IVPB DAILY [facility] Last Admin: 11/05/16 11:14 Dose: 50 mls/hr Dextrose (D5w -) 1,000 mls @ 42 mls/hr IV Q23H [facility] Last Admin: 11/04/16 17:16 Dose: 42 mls/hr Ibuprofen (Caldolor Injection -) 400 mg IVPB Q6H PRN PRN Reason: FEVER Last Admin: 11/05/16 06:46 Dose: 400 mg Lidocaine HCl (Xylocaine 2% Jelly) 1 applic TP Q4H PRN PRN Reason: PAIN Metoprolol Tartrate (Lopressor Injection -) 5 mg IVPB Q4H PRN PRN Reason: TACHYCARDIA Metoprolol Tartrate (Lopressor Injection -) 5 mg IVPB Q8H-IV [facility] Last Admin: 11/05/16 11:12 Dose: 5 mg Morphine Sulfate (Morphine Injection -) 2 mg IVPUSH Q4H PRN PRN Reason: PAIN Last Admin: 11/02/16 22:25 Dose: 2 mg Scopolamine HBr (Transderm-Scop -) 1 patch TD Q72H [facility] Last Admin: 11/04/16 18:34 Dose: 1 patch - Objective Vital Signs: Vital Signs Temperature 99.1 F 11/05/16 11:08 Pulse Rate 99 H 11/05/16 11:12 Respiratory Rate 15 11/05/16 11:08 Blood Pressure 122/88 11/05/16 11:12 O2 Sat by Pulse Oximetry (%) 98 11/05/16 09:15 Neck: Yes: Other (Trach) Cardiovascular: Yes: Regular Rate and Rhythm, S1, S2 Respiratory: Yes: WNL, Regular, CTA Bilaterally, Mechanically Ventilated, Rhonchi Gastrointestinal: Yes: Normal Bowel Sounds, Soft, Distention. No: Tenderness, Tenderness, Epigastrium Edema: No Labs: CBC, BMP 11/04/16 06:20 11/04/16 06:20 INR, PTT INR 1.30 (0.82-1.09) H 10/28/16 17:45 Problem List - Problems (1) ALS (amyotrophic lateral sclerosis) Code(s): G12.21 - AMYOTROPHIC LATERAL SCLEROSIS (2) Cardiac arrest Code(s): I46.9 - CARDIAC ARREST, CAUSE UNSPECIFIED (3) Respiratory failure requiring intubation Code(s): J96.90 - RESPIRATORY FAILURE, UNSP, UNSP W HYPOXIA OR HYPERCAPNIA (4) Fever Code(s): R50.9 - FEVER, UNSPECIFIED Assessment/Plan Microbiology Laboratory Tests 11/04/16 11/04/16 06:20 06:20 WBC 11.5 H D RBC 3.30 L Hct 29.8 L Plt Count 169 BUN 20 H D Creatinine 0.2 L Assessment Respiratory failure ALS PNA Cardiac arrest Low grade fever ? atalectasis Plan Discussed with Dr Owen mckenzie d/c antibiotic and fungal and observe Low grade temps Margot LOVELACE
--- NOTE | 2016-11-05 12:50 | PN ---
Teaching Attending Note Name of Resident: Manjula Delvalle ATTENDING PHYSICIAN STATEMENT I saw and evaluated the patient. I reviewed the resident's note and discussed the case with the resident. I agree with the resident's findings and plan as documented. SUBJECTIVE: resting comfortable no reports of flatus or burping. no BM OBJECTIVE: Last Vital Signs Temp Pulse Resp BP Pulse Ox 99.1 F 99 H 15 122/88 98 11/05/16 11:08 11/05/16 11:12 11/05/16 11:08 11/05/16 11:12 11/05/16 09:15 Intake & Output 11/02/16 11/03/16 11/04/16 11/05/16 23:59 23:59 23:59 23:59 Intake Total 2535 2880 1408 1968 Output Total 100 90 30 Balance 2435 2880 1318 1938 Weight 184 lb 182 lb 6 oz 186 lb 3.2 oz 180 lb General NAD, CV S1 S2 + no murmur Lungs diffuse coarse breath sounds Abdomen +distended,soft NT no BS appreciated. mildly tender, +tympanic Extremities no pedal edema CBCD WBC 11.5 K/mm3 (4.0-10.0) H D 11/04/16 06:20 RBC 3.30 M/mm3 (3.60-5.2) L 11/04/16 06:20 Hgb 9.9 GM/dL (10.7-15.3) L 11/04/16 06:20 Hct 29.8 % (32.4-45.2) L 11/04/16 06:20 MCV 90.3 fl (80-96) 11/04/16 06:20 MCHC 33.3 g/dl (32.0-36.0) 11/04/16 06:20 RDW 14.4 % (11.6-15.6) 11/04/16 06:20 Plt Count 169 K/MM3 (134-434) 11/04/16 06:20 MPV 9.7 fl (7.5-11.1) 11/04/16 06:20 CMP Sodium 140 mmol/L (136-145) 11/04/16 06:20 Potassium 3.3 mmol/L (3.5-5.1) L 11/04/16 06:20 Chloride 100 mmol/L (98-107) 11/04/16 06:20 Carbon Dioxide 35 mmol/L (21-32) H 11/04/16 06:20 Anion Gap 5 (8-16) L 11/04/16 06:20 BUN 20 mg/dL (7-18) H D 11/04/16 06:20 Creatinine 0.2 mg/dL (0.55-1.02) L 11/04/16 06:20 Creat Clearance w eGFR > 60 (>60) 11/04/16 06:20 Calcium 8.0 mg/dL (8.5-10.1) L 11/04/16 06:20 Total Bilirubin 0.2 mg/dL (0.2-1.0) D 11/04/16 06:20 AST 14 U/L (15-37) L D 11/04/16 06:20 ALT 30 U/L (12-78) D 11/04/16 06:20 Alkaline Phosphatase 130 U/L (45-117) H D 11/04/16 06:20 Total Protein 5.3 g/dl (6.4-8.2) L 11/04/16 06:20 Albumin 2.0 g/dl (3.4-5.0) L 11/04/16 06:20 ASSESSMENT AND PLAN: 56-year-old woman with a history of ALS, chronic hypercapnic respiratory failure , HTN, hyperthyroidism, atrial fib, hyperlipidemia who was brought in to the ER after being intubated by EMS for acute respiratory distress and subsequently had cardiac arrest in the ER. 1. s/p cardiac arrest, secondary to hypoxia vs electrolyte abnormality 2. Acute on chronic hypoxic and hypercapnic respiratory failure- due to progression of ALS. has failed daily CPAP trials and trach on 10/25. improved. not tolerating cpap trials. repeat CXR shows clearing of vasc congestion and PNA. was started on scopolamine patch with improvement in secretions. cont frequent suctioning. chest PT, frequent suctioning 3. dysphagia- s/p PEG placement 10/29. 4. Ileus-concern for progression of ALS vs juan miguel syndrome. minimal output from NGT. will remove NGT and place PEG on intermittent suction. cont NPO, bowel rest. AXR pending. will f/u GI about possible started prokinetic agent. holding all dysmotility agents (opiates, CCB). on low dose IVF 4. Sepsis due to worsening PNA vs UTI- low grade fevers. leukocytosis improving. CXR shows improvement. d/w ID will d/c all abx and monitor off abx. 5. Hypokalemia-Kcl 10meq x3 6. Hypophosphatemia-resolved 7. HTN- controlled. on lopressor IV. monitor as unable to give cardizem on floor. may need to adjust 8. Paroxysmal atrial fibrillation/flutter with RVR- rate uncontrolled. will increase metoprolol to 10mg Q8H and prn for HR> 120. on full dose lovenox 9. Hyperlipidemia 10. Hyperglycemia-likely steroid induced A1c 4.3. 11. Depression- Continue Remeron 12. ALS 13. DVT prophylaxis- full dose lovenox 14. d/w son present at bedside. answered all questions. verbalized understanding and agreement
[2016-11-05] MEDS: KCL 10 MEQ IVPB 100 ML IVPB SCH ×3 (13:00→18:34)
[2016-11-05] MEDS: BACITRACIN 15 GM TUBE TOPICAL OINTMENT TP SCH (13:01)
[2016-11-05] MEDS: DEXTROSE 5%-WATER - 1,000 ML IV SCH ×2 (15:31→22:29)
--- NOTE | 2016-11-05 16:51 | PN ---
Physical Exam: SUBJECTIVE: Patient seen and examined at bedside. NG tube in place. Son at bedside. Pt responsive but more lethargic than usual. OBJECTIVE: Vital Signs Period Temp Pulse Resp BP Sys/Hatch Pulse Ox Last 24 Hr 99.0 F-100.3 F 86-146 12-20 122-152/70-92 98-100 GENERAL: The patient is lethargic and fully oriented, in no acute distress. HEAD: Normal with no signs of trauma. EYES: PERRL, extraocular movements intact, sclera anicteric, conjunctiva clear. NECK: Trachea midline,supple. Trach site intact. LUNGS: Breath sounds equal, clear to auscultation bilaterally, no wheezes, no crackles, no accessory muscle use. HEART: irregular rate and rhythm, S1, S2 without murmur, rub or gallop. ABDOMEN: Soft, nontender, distended abdomen, hypoactive bowel sounds, PEG site clean and intact EXTREMITIES: 2+ posterior tibial pulses, warm, well-perfused, no edema in lower extremities. NEUROLOGICAL: difficult to assess, but pt responsive to commands Active Medications Generic Name Dose Route Start Last Admin Trade Name Freq PRN Reason Stop Dose Admin Albuterol/Ipratropium 1 amp 10/30/16 18:00 11/05/16 12:34 Duoneb - NEB 1 amp QIDR [facility] Administration Bacitracin 1 applic 10/31/16 10:00 11/05/16 13:01 Bacitracin - TP 1 applic DAILY [facility] Administration Chlorhexidine Gluconate 15 ml 10/30/16 22:00 11/05/16 11:13 Peridex - MM 15 ml BID [facility] Administration Enoxaparin Sodium 80 mg 11/04/16 22:00 11/05/16 11:11 Lovenox - SQ 80 mg BID [facility] Administration Furosemide 20 mg 11/05/16 10:00 11/05/16 11:11 Lasix Injection - IVPB 20 mg DAILY [facility] Administration Dextrose 1,000 mls @ 42 mls/hr 11/04/16 15:45 11/05/16 15:31 D5w - IV Not Given Q23H [facility] Ibuprofen 400 mg 11/05/16 06:23 11/05/16 06:46 Caldolor Injection - IVPB 400 mg Q6H PRN Administration FEVER Lidocaine HCl 1 applic 10/30/16 17:00 Xylocaine 2% Jelly TP Q4H PRN PAIN Metoprolol Tartrate 5 mg 11/04/16 15:02 Lopressor Injection - IVPB Q4H PRN [facility] Metoprolol Tartrate 10 mg 11/05/16 18:00 Lopressor Injection - IVPB Q8H-IV [facility] Morphine Sulfate 2 mg 11/02/16 12:28 11/02/16 22:25 Morphine Injection - IVPUSH 2 mg Q4H PRN Administration PAIN Scopolamine HBr 1 patch 11/01/16 19:15 11/04/16 18:34 Transderm-Scop - TD 1 patch Q72H [facility] Administration ASSESSMENT/PLAN: This is a 56 yr old F with PMH ALS, chronic hypercapnic resp failure, HTN, HLD, hyperthyroidism, goiter, intubated to ED via EMS due to resp arrest. In ED, pt had cardiac arrest (V tach) for 5 min, was resuscitated and stabilized, admitted to ICU. # Acute on chronic respiratory failure secondary to ALS -Trach completed (10/24/16) -s/p PEG (10/30/16) -Continue duonebs 1 amp PRN, scopolamine patch for incr. secretions -Solumedrol has been d/c -Palliative on board #Ileus secondary to worsening ALS -NG tube has been d/c -Intermittent suction for PEG tube -F/u abdominal x-ray -F/u with GI, Dr. Vidal about need for pro-kinetic agent -If does not improve in 1 week, may need surgery # Fever secondary to PNA or UTI -Pt still continues to have fevers overnight, Tmax 100.3 last night -Abx d/c, have not been helping fevers # Paroxysmal afib -Continue for rate control: -Lopressor injection 10mg q8h -Lopressor injection 5mg IVPB q4 PRN -Lovenox 80 mg SQ BID -Will continue to monitor #Hypokalemia-resolved #Hypophosphatemia-resolved #Hyperthyroidism -Continue Methimazole 10 mg via NGT #Major Depressive Disorder -Continue Remeron 15mg via NGT # s/p Cardiac arrest in ED possibly secondary to hypoxia-resolved -Troponins negative x2 -Echo: regional wall motion abnormalities can't be ruled out. When compared to Echo 10/10/16: no wall motion abnormalities #Possible atelectasis-resolved #subtherapeutic INR- resolved # Diarrhea-resolved # Lactic acidosis secondary to cardiac arrest-resolved # Hypernatremia-resolved # Anxiety-resolved DVT prophylaxis SCD's Lovenox 80mg SQ BID Stress ulcer prophylaxis -Continue Zantac 150 mg NGT BID F/E/N Monitor electrolytes bowel rest Dispo -accepted by SNF, however unable to d/c d/t ileus Visit type - Emergency Visit Emergency Visit: No - New Patient This patient is new to me today: No - Critical Care Critical Care patient: No
[2016-11-05] MEDS ORDERED: KCL 10 MEQ IVPB 100 ML IVPB ONE (18:30)
[2016-11-06] MEDS: ALBUTEROL SO4 2.5/IPRATROPIUM 0.5 INH SOL 3 ML VIAL.NEB. NEB SCH ×3 (00:18→18:04)
[2016-11-06] MEDS: METOPROLOL TARTRATE 5 MG/5 ML VIAL IVPB SCH (01:38)
[2016-11-06] MEDS: IBUPROFEN 800 MG/8 ML IJ IVPB PRN (02:10)
--- NOTE | 2016-11-06 05:47 | CONS ---
DATE OF CONSULTATION: 11/05/2016 REFERRING PHYSICIAN: Airam Hui MD REASON FOR REFERRAL: Ileus. BRIEF HISTORY: This is a 56-year-old female with a history of ALS, who is status post tracheostomy and PEG. The PEG was placed approximately a week ago, and I have been asked to evaluate this patient due to an ileus. Patient is unable to give history. History obtained via the chart. PAST MEDICAL HISTORY: Significant for ALS, PA-atrial fibrillation, chronic hypercapnia, respiratory failure, hypertension, hypothyroidism, and goiter. PAST SURGICAL HISTORY: As described above. ALLERGIES: None. MEDICATIONS: Refer to chart. PHYSICAL EXAMINATION: Abdomen: Is slightly distended, soft, nontender, nondistended. No peritoneal findings whatsoever. LABORATORY DATA: White count as of today is 11.5. Most recent KUB was performed on the . The KUB demonstrated a general abdominal distension compatible with ileus. There is a PEG noted. There is no free air and no obvious free fluid. IMPRESSION/PLAN: Status post percutaneous endoscopic gastrostomy: This is a 56-year-old female who underwent placement of a percutaneous endoscopic gastrostomy approximately a week ago. I have discussed this case with Dr. Hui yesterday, and in my discussion, I feel that this patient most likely has an ileus related to a multitude of problems such as gut dysfunction from amyotrophic lateral sclerosis, pulmonary issues, and just recently having a percutaneous endoscopic gastrostomy placed. At this time, she is approximately one week out, and there is no indication clinically that she has any type of abdominal sepsis from this percutaneous endoscopic gastrostomy. I suspect the ileus will resolve with time, and at this time, does not require any acute surgical intervention. She has a benign appearing abdomen clinically. I would recommend conservative management and no acute surgery needed. Management will be dictated as per primary care service and GI. I will be happy to see this patient on a p.r.n. basis. If her condition changes or she develops an Ogilvies that requires surgical intervention, please feel free to give me a call back, and I will reevaluate her. I will be available p.r.n. Thank you for allowing me to participate in the care of your patient. NICHOLAS MUÑOZ M.D. [id number] cc: Airam Richey MD
[2016-11-06 07:37] LABS: BASOPHIL 0.2 % (0-2.0); EOSINOPHIL 0.8 % (0-4.5); MCH 30.1 pg (25.7-33.7); MCHC 33.4 g/dl (32.0-36.0); MEAN CELL VOLUME 90.1 fl (80-96); MEAN PLT VOLUME 9.6 fl (7.5-11.1); NEUTROPHILS 84.4 % (42.8-82.8); PLATELET COUNT 166 K/MM3 (134-434); RDW 14.4 % (11.6-15.6); WHITE BLOOD COUNT 8.7 K/mm3 (4.0-10.0)
[2016-11-06 08:40] LABS: ANION GAP 9 (8-16); CO2 33 mmol/L (21-32); CREATININE < 0.2 mg/dL (0.55-1.02); GLUCOSE,RANDOM 78 mg/dL (74-106)
[2016-11-06] MEDS ORDERED: METOPROLOL TARTRATE 5 MG/5 ML VIAL IVPB SCH ×3 (09:15→14:00)
[2016-11-06] MEDS: PANTOPRAZOLE SODIUM 100 ML IVPB SCH ×2 (09:27→23:14)
[2016-11-06] MEDS: FUROSEMIDE 40 MG/4 ML INJECTABLE VIAL IVPB SCH (09:27)
[2016-11-06] MEDS: BACITRACIN 15 GM TUBE TOPICAL OINTMENT TP SCH (09:28)
[2016-11-06] MEDS: ENOXAPARIN NA (PORCINE) 80 MG/0.8 ML DISP.SYRIN SQ SCH ×2 (09:29→23:10)
[2016-11-06] MEDS: CHLORHEXIDINE GLUCONATE 0.12% 15ML CUP MM SCH ×2 (09:29→23:10)
--- NOTE | 2016-11-06 09:59 | PN ---
Progress Note (short form) - Note Progress Note: Followed earlier in admission while in ICU, had signed off case. RN asked me to review ECG done this AM showing AF at 125bpm. Briefly, patient w/ advanced ALS long hospital course w/ respiratory failure now with ileus limiting enteral admin of usual rate control meds. Now written for PRN Lopressor w/ parameters. Selected Entries 11/06/16 05:20 Temperature 100.7 F H Blood Pressure 127/42 REC: While enteral meds are held, agree with PRN IV Lopressor for rate control with hold parameters outlined. Continue Lovenox. Available for follow up as needed. Problem List - Problems (1) Cardiac arrest Code(s): I46.9 - CARDIAC ARREST, CAUSE UNSPECIFIED (2) Pneumonia Code(s): J18.9 - PNEUMONIA, UNSPECIFIED ORGANISM Qualifiers: Pneumonia type: due to unspecified organism Laterality: left Lung location: upper lobe of lung Qualified Code(s): J18.1 - Lobar pneumonia, unspecified organism (3) Respiratory failure requiring intubation Code(s): J96.90 - RESPIRATORY FAILURE, UNSP, UNSP W HYPOXIA OR HYPERCAPNIA (4) ALS (amyotrophic lateral sclerosis) Code(s): G12.21 - AMYOTROPHIC LATERAL SCLEROSIS
--- NOTE | 2016-11-06 09:59 | EKG ---
Test Reason : Blood Pressure : / mmHG Vent. Rate : 125 BPM Atrial Rate : 220 BPM P-R Int : 000 ms QRS Dur : 078 ms QT Int : 298 ms P-R-T Axes : 000 010 -89 degrees QTc Int : 430 ms ATRIAL FIBRILLATION WITH RAPID VENTRICULAR RESPONSE WITH PREMATURE VENTRICULAR OR ABERRANTLY CONDUCTED COMPLEXES NONSPECIFIC ST AND T WAVE ABNORMALITY ABNORMAL ECG WHEN COMPARED WITH ECG OF 26-OCT-2016 08:24, NO SIGNIFICANT CHANGE WAS FOUND Confirmed by MAJO BURTON MD ([id number]) on 11/06/2016 9:59:26 AM Referred By: JADE FOX Confirmed By:MAJO BURTON MD
[2016-11-06] MEDS: FUROSEMIDE 40 MG/4 ML INJECTABLE VIAL IVPUSH SCH (10:15)
[2016-11-06] MEDS ORDERED: METOPROLOL TARTRATE 5 MG/5 ML VIAL IVPB PRN (11:34)
--- NOTE | 2016-11-06 11:39 | PN ---
<Manjula Delvalle - Last Filed: 11/06/16 12:23> Physical Exam: SUBJECTIVE: Patient seen and examined at bedside this morning. Overnight, pt spiked fever to 100.7F. Blood draining from PEG suction, has been turned off. Pt has 2 BM's yesterday, as per nurse. Son at bedside. OBJECTIVE: Vital Signs Period Temp Pulse Resp BP Sys/Hatch Pulse Ox Last 24 Hr 98.7 F-100.7 F 80-162 12-18 123-146/42-91 98 GENERAL: The patient is in no acute distress. HEAD: Normal with no signs of trauma. EYES: PERRL, extraocular movements intact, sclera anicteric, conjunctiva clear. NECK: Trachea midline, supple. Trach site intact. LUNGS: Breath sounds equal, clear to auscultation bilaterally, no wheezes, no crackles, no accessory muscle use. HEART: Regular rate and rhythm, S1, S2 without murmur, rub or gallop. ABDOMEN: Soft, nontender, without distension, hypoactive bowel sounds but improved from yesterday. No guarding or rebound. PEG site intact. Draining blood - EXTREMITIES: 2+ posterior tibial pulses, warm, well-perfused, no edema. NEUROLOGICAL: difficult to assess, but pt responsive to commands Laboratory Results - last 24 hr 11/06/16 11/06/16 07:00 07:00 WBC 8.7 RBC 3.22 L Hgb 9.7 L Hct 29.0 L MCV 90.1 MCH 30.1 MCHC 33.4 RDW 14.4 Plt Count 166 MPV 9.6 Neutrophils % 84.4 H Lymphocytes % 9.1 D Monocytes % 5.5 D Eosinophils % 0.8 D Basophils % 0.2 Sodium 142 Potassium 3.0 L Chloride 100 Carbon Dioxide 33 H Anion Gap 9 BUN 8 D Creatinine < 0.2 L Random Glucose 78 D Calcium 8.0 L Active Medications Generic Name Dose Route Start Last Admin Trade Name Freq PRN Reason Stop Dose Admin Albuterol/Ipratropium 1 amp 10/30/16 18:00 11/06/16 06:16 Duoneb - NEB 1 amp QIDR SILVIA Administration Bacitracin 1 applic 10/31/16 10:00 11/06/16 09:28 Bacitracin - TP Not Given DAILY SILVIA Chlorhexidine Gluconate 15 ml 10/30/16 22:00 08/15/17 09:29 Peridex - MM 15 ml BID SILVIA Administration Enoxaparin Sodium 80 mg 11/04/16 22:00 11/06/16 09:29 Lovenox - SQ 80 mg BID SILVIA Administration Furosemide 20 mg 11/06/16 10:00 11/06/16 10:15 Lasix Injection - IVPUSH 20 mg DAILY SILVIA Administration Dextrose 1,000 mls @ 42 mls/hr 11/04/16 15:45 11/05/16 22:29 D5w - IV 42 mls/hr Q23H SILVIA Administration Pantoprazole Sodium 100 mls @ 200 mls/hr 11/06/16 10:00 11/06/16 09:27 Protonix 40mg Ivpb (Pre-Docked) IVPB 200 mls/hr BID SILVIA Administration Lidocaine HCl 1 applic 10/30/16 17:00 Xylocaine 2% Jelly TP Q4H PRN PAIN Metoprolol Tartrate 5 mg 11/06/16 14:00 Lopressor Injection - IVPB Q4H-IV SILVIA Scopolamine HBr 1 patch 11/01/16 19:15 11/04/16 18:34 Transderm-Scop - TD 1 patch Q72H SILVIA Administration ASSESSMENT/PLAN: This is a 56 yr old F with PMH ALS, chronic hypercapnic resp failure, HTN, HLD, hyperthyroidism, goiter, intubated to ED via EMS due to resp arrest. In ED, pt had cardiac arrest (V tach) for 5 min, was resuscitated and stabilized, admitted to ICU. Pt now on med-surg floor. Admitted for acute on chronic respiratory failure secondary to ALS. # Acute on chronic respiratory failure secondary to ALS -Trach completed (10/24/16), s/p PEG (10/30/16) -Continue duonebs 1 amp PRN, scopolamine patch for incr. secretions -CXR (11/06/16): increased density/consolidation of L lower lobe with small L pleural effusion. Interval slight increase interstitial and airspace opacities in R lung base with questionable small R pleural effusion. No pneumothorax identified. #Ileus secondary to worsening ALS -NG tube has been d/c -Pt had 2 BM yesterday as per nurse, improvement -PEG tube intermittent suction has been d/c -Abdominal x-ray (11/06): dilated loops of large and small bowel again seen, not significantly changed -F/u CT abdomen/pelvis w/o contrast -F/u with GI, Dr. Vidal about need for pro-kinetic agent # Fever secondary to PNA or UTI -Pt still continues to have fevers overnight, Tmax 100.7 last night -Ibuprofen/Tylenol will not be given in response to these fevers as blood present in pt's PEG suction today -Abx have been d/c, as were not been helping fevers #Blood draining from PEG -Pt placed on IV protonix 40mg BID prophylactically -H&H 9.10/20 no dramatic change from day prior -Ibuprofen/Tylenol will not be used in resp to fevers -PEG suction has been d/c for this reason -Will monitor -F/u CBC 6pm # Paroxysmal afib -EKG 11/06/16: afib with RVR, nonspecific ST and T wave abnormality - no significant change from 10/26/16 -Continue for rate control: -Lopressor injection has been changed to Lopressor 5mg IVPB q4h IV -Lopressor injection 5mg IVPB q4 IV PRN -Pt on Lovenox 80 mg SQ BID -Will continue to monitor #Diarrhea -F/u c.diff toxin test #Hypokalemia-resolved #Hypophosphatemia-resolved #Hyperthyroidism -Continue Methimazole 10 mg via NGT #Major Depressive Disorder -Continue Remeron 15mg via NGT # s/p Cardiac arrest in ED possibly secondary to hypoxia-resolved -Troponins negative x2 -Echo: regional wall motion abnormalities can't be ruled out. When compared to Echo 10/10/16: no wall motion abnormalities #Possible atelectasis-resolved #subtherapeutic INR- resolved # Diarrhea-resolved # Lactic acidosis secondary to cardiac arrest-resolved # Hypernatremia-resolved # Anxiety-resolved DVT prophylaxis -SCD's -Lovenox 80mg SQ BID Stress ulcer prophylaxis -Continue Zantac 150 mg NGT BID F/E/N -Monitor electrolytes -bowel rest Dispo -accepted by SNF, however unable to d/c d/t ileus <Guille Pan - Last Filed: 11/06/16 16:44> Physical Exam: SUBJECTIVE: Patient seen and examined Son At bedside, comfortable , trached. Elelvated hr continues. OBJECTIVE: Vital Signs Temperature 99.1 F 11/06/16 14:30 Pulse Rate 116 H 11/06/16 15:05 Respiratory Rate 18 11/06/16 15:00 Blood Pressure 124/87 11/06/16 15:05 O2 Sat by Pulse Oximetry (%) 99 11/06/16 10:30 CBCD WBC 8.7 K/mm3 (4.0-10.0) 11/06/16 07:00 RBC 3.22 M/mm3 (3.60-5.2) L 11/06/16 07:00 Hgb 9.7 GM/dL (10.7-15.3) L 11/06/16 07:00 Hct 29.0 % (32.4-45.2) L 11/06/16 07:00 MCV 90.1 fl (80-96) 11/06/16 07:00 MCHC 33.4 g/dl (32.0-36.0) 11/06/16 07:00 RDW 14.4 % (11.6-15.6) 11/06/16 07:00 Plt Count 166 K/MM3 (134-434) 11/06/16 07:00 MPV 9.6 fl (7.5-11.1) 11/06/16 07:00 CMP Sodium 142 mmol/L (136-145) 11/06/16 07:00 Potassium 3.0 mmol/L (3.5-5.1) L 11/06/16 07:00 Chloride 100 mmol/L (98-107) 11/06/16 07:00 Carbon Dioxide 33 mmol/L (21-32) H 11/06/16 07:00 Anion Gap 9 (8-16) 11/06/16 07:00 BUN 8 mg/dL (7-18) D 11/06/16 07:00 Creatinine < 0.2 mg/dL (0.55-1.02) L 11/06/16 07:00 Creat Clearance w eGFR > 60 (>60) 11/04/16 06:20 Random Glucose 78 mg/dL (74-106) D 11/06/16 07:00 Calcium 8.0 mg/dL (8.5-10.1) L 11/06/16 07:00 Total Bilirubin 0.2 mg/dL (0.2-1.0) D 11/04/16 06:20 AST 14 U/L (15-37) L D 11/04/16 06:20 ALT 30 U/L (12-78) D 11/04/16 06:20 Alkaline Phosphatase 130 U/L (45-117) H D 11/04/16 06:20 Total Protein 5.3 g/dl (6.4-8.2) L 11/04/16 06:20 Albumin 2.0 g/dl (3.4-5.0) L 11/04/16 06:20 CARDIAC ENZYMES Creatine Kinase 36 IU/L (26-192) 10/16/16 05:10 Troponin I 0.03 ng/ml (0.00-0.05) 10/16/16 05:10 Active Medications Generic Name Dose Route Start Last Admin Trade Name Freq PRN Reason Stop Dose Admin Albuterol/Ipratropium 1 amp 10/30/16 18:00 11/06/16 06:16 Duoneb - NEB 1 amp QIDR SILVIA Administration Bacitracin 1 applic 10/31/16 10:00 11/06/16 09:28 Bacitracin - TP Not Given DAILY SILVIA Chlorhexidine Gluconate 15 ml 10/30/16 22:00 11/06/16 09:29 Peridex - MM 15 ml BID SILVIA Administration Enoxaparin Sodium 80 mg 11/04/16 22:00 11/06/16 09:29 Lovenox - SQ 80 mg BID SILVIA Administration Furosemide 20 mg 11/06/16 10:00 11/06/16 10:15 Lasix Injection - IVPUSH 20 mg DAILY SILVIA Administration Dextrose 1,000 mls @ 42 mls/hr 11/04/16 15:45 11/06/16 14:51 D5w - IV Not Given Q23H SILVIA Pantoprazole Sodium 100 mls @ 200 mls/hr 11/06/16 10:00 11/06/16 09:27 Protonix 40mg Ivpb (Pre-Docked) IVPB 200 mls/hr BID SILVIA Administration Potassium Chloride 100 mls @ 100 mls/hr 11/06/16 14:15 11/06/16 15:40 Potassium Chloride 10 Meq Premix Ivpb - IVPB 11/06/16 18:14 100 mls/hr Q60M SILVIA Administration Lidocaine HCl 1 applic 10/30/16 17:00 Xylocaine 2% Jelly TP Q4H PRN PAIN Metoprolol Tartrate 5 mg 11/06/16 11:35 11/06/16 15:05 Lopressor Injection - IVPB 5 mg Q4H-IV PRN Administration TACHYCARDIA Scopolamine HBr 1 patch 11/01/16 19:15 11/04/16 18:34 Transderm-Scop - TD 1 patch Q72H SILVIA Administration Home Medications Medication Instructions Recorded Metoprolol Tartrate [Lopressor -] 50 mg PO BID tablet 10/12/16 Apixaban [Eliquis -] 5 mg PO DAILY 10/15/16 Methimazole 10 mg PO DAILY 10/15/16 Mirtazapine [Remeron -] 15 mg PO DAILY 10/15/16 Sennosides [Senna] 8.6 mg PO DAILY 10/15/16 ASSESSMENT/PLAN: 56-year-old woman with a history of ALS, chronic hypercapnic respiratory failure , HTN, hyperthyroidism, atrial fib, hyperlipidemia who was brought in to the ER after being intubated by EMS for acute respiratory distress and subsequently had cardiac arrest in the ER. # s/p cardiac arrest, with acute respiratory failure most likely due to hypoxemia vs electrolyte abnormality # Acute on chronic hypoxic / hypercapnic respiratory failure- due to progression of ALS. s/p Intubation, extubation and now trached # Dysphagia from ALS - s/p PEG placement 10/29/2016 # Ileus-concern for progression of ALS vs juan miguel syndrome. minimal output from NGT. will remove NGT and place PEG on intermittent suction. cont NPO, bowel rest. AXR pending. will f/u GI about possible started prokinetic agent. holding all dysmotility agents (opiates, CCB). on low dose IVF # Sepsis due to worsening PNA vs UTI- low grade fevers. leukocytosis improving. CXR shows improvement. d/w ID will d/c all abx and monitor off abx. # Acute Hypokalemia; kcl riders x 4 today s/ p 3 riders yesterday still having Low Potassium # Hypophosphatemia-resolved # HTN- controlled. on lopressor IV. # Paroxysmal atrial fibrillation/flutter with RVR- rate uncontrolled. On Lopressor IV 5mg q4h with holding parameters, cardiology agrees with the plan. # Hx of Hyperlipidemia # Hyperglycemia-likely steroid induced A1c 4.3. # Depression- Continue Remeron # Hx of ALS DVT prophylaxis- full dose lovenox Visit type - Emergency Visit Emergency Visit: Yes ED Registration Date: 10/15/16 Care time: The patient presented to the Emergency Department on the above date and was hospitalized for further evaluation of their emergent condition. - New Patient This patient is new to me today: Yes Date on this admission: 11/06/16 - Critical Care Critical Care patient: No
--- NOTE | 2016-11-06 11:52 | PN ---
Progress Note (short form) - Note Progress Note: PULMONARY Tolerating SIMV with 50% FiO2. Low grade temps overnight. Last Vital Signs Temp Pulse Resp BP Pulse Ox 100.7 F H 88 14 124/70 99 11/06/16 05:20 11/06/16 10:30 11/06/16 10:30 11/06/16 10:12 11/06/16 10:30 Gen: vented, more awake Heart: RRR Lung: decreased breath sounds at the bases Abd: soft, nontender Ext: no edema CBC, BMP 11/06/16 07:00 11/06/16 07:00 Active Medications Albuterol/Ipratropium (Duoneb -) 1 amp NEB QIDR [facility] Last Admin: 11/06/16 06:16 Dose: 1 amp Bacitracin (Bacitracin -) 1 applic TP DAILY [facility] Last Admin: 11/06/16 09:28 Dose: Not Given Chlorhexidine Gluconate (Peridex -) 15 ml MM BID [facility] Last Admin: 11/06/16 09:29 Dose: 15 ml Enoxaparin Sodium (Lovenox -) 80 mg SQ BID [facility] Last Admin: 11/06/16 09:29 Dose: 80 mg Furosemide (Lasix Injection -) 20 mg IVPUSH DAILY [facility] Last Admin: 11/06/16 10:15 Dose: 20 mg Dextrose (D5w -) 1,000 mls @ 42 mls/hr IV Q23H [facility] Last Admin: 11/05/16 22:29 Dose: 42 mls/hr Pantoprazole Sodium (Protonix 40mg Ivpb (Pre-Docked)) 100 mls @ 200 mls/hr IVPB BID [facility] Last Admin: 11/06/16 09:27 Dose: 200 mls/hr Lidocaine HCl (Xylocaine 2% Jelly) 1 applic TP Q4H PRN PRN Reason: PAIN Metoprolol Tartrate (Lopressor Injection -) 5 mg IVPB Q4H-IV PRN PRN Reason: TACHYCARDIA Scopolamine HBr (Transderm-Scop -) 1 patch TD Q72H [facility] Last Admin: 11/04/16 18:34 Dose: 1 patch A/P Acute on Chronic Hypoxic and Hypercapneic Respiratory Failure s/p Tracheostomy s/p Cardiac Arrest likely from Respiratory Failure Pneumonia / VAP Sepsis Lactic Acidosis resolved Advanced ALS Paroxysmal Atrial Fibrillation with RVR HTN Hyperthyroidism Atelectasis - agree with monitoring off antibiotics, fever from ?atelectasis - rate control with metoprolol - continue anticoagulation - replete lytes - spontaneous breathing trials as tolerated, decreased back up rate on SIMV - continue discussions regarding goals of care, advanced directives
[2016-11-06] MEDS: DEXTROSE 5%-WATER - 1,000 ML IV SCH (14:51)
[2016-11-06] MEDS: METOPROLOL TARTRATE 5 MG/5 ML VIAL IVPB PRN ×2 (15:05→20:40)
[2016-11-06] MEDS: KCL 10 MEQ IVPB 100 ML IVPB SCH ×4 (15:40→20:32)
[2016-11-06 18:44] LABS: MCH 30.8 pg (25.7-33.7); MCHC 33.9 g/dl (32.0-36.0); MEAN CELL VOLUME 90.9 fl (80-96); MEAN PLT VOLUME 10.1 fl (7.5-11.1); PLATELET COUNT 173 K/MM3 (134-434); RDW 14.8 % (11.6-15.6); WHITE BLOOD COUNT 9.7 K/mm3 (4.0-10.0)
[2016-11-06 18:57] LABS: ANION GAP 10 (8-16); CALCIUM 8.3 mg/dL (8.5-10.1); CO2 34 mmol/L (21-32); CREATININE < 0.2 mg/dL (0.55-1.02); GLUCOSE,RANDOM 87 mg/dL (74-106)
--- NOTE | 2016-11-06 20:05 | PN ---
GI Progress Note Subjective: Called for GI bleeding Recently had PEG placed. After PEG, started on AC and given NSAIDs - Objective Vital Signs: Vital Signs Temperature 98.2 F 11/06/16 18:05 Pulse Rate 74 11/06/16 18:05 Respiratory Rate 27 H 11/06/16 18:05 Blood Pressure 161/81 11/06/16 18:05 O2 Sat by Pulse Oximetry (%) 99 11/06/16 10:30 Constitutional: Well Nourished, Mild Distress HENT: Yes: Normocephalic Cardiovascular: Yes: Regular Rate and Rhythm Respiratory: Yes: CTA Bilaterally Gastrointestinal Inspection: Yes: WNL (PEG site clean and dry. Small spot of blood on gauze. No evidence of avulsion or buried bumper.) ...Auscultate: Yes: Normoactive Bowel Sounds ...Palpate: Yes: Soft. No: Tenderness Labs: CBC, BMP 11/06/16 17:45 11/06/16 17:45 INR, PTT INR 1.30 (0.82-1.09) H 10/28/16 17:45 Assessment/Plan Discussed with hospitalist Hgb stable-10.[address] scan ordered but don't expect it to give new info so cancelled-hospitalist aware. Mild distention chronic as often occurs in patients with neurogenic bowel Minor bleed secondary to AC and NSAIDs Continue AC, d/c Nsaids Expect resolution
[2016-11-06] MEDS: PANTOPRAZOLE SODIUM 40 MG in SODIUM CHLORIDE 100 ML IVPB SCH (23:09)
[2016-11-07] MEDS: ALBUTEROL SO4 2.5/IPRATROPIUM 0.5 INH SOL 3 ML VIAL.NEB. NEB SCH ×6 (00:04→23:05)
[2016-11-07 01:27] LABS: ALBUMIN 2.3 g/dl (3.4-5.0); ALK PHOS 116 U/L (45-117); ANION GAP 12 (8-16); BILIRUBIN,TOTAL 0.8 mg/dL (0.2-1.0); CO2 31 mmol/L (21-32); CREATININE < 0.2 mg/dL (0.55-1.02); GLUCOSE,RANDOM 82 mg/dL (74-106); SGOT/AST 25 U/L (15-37); SGPT/ALT 30 U/L (12-78); TOT PROT 5.7 g/dl (6.4-8.2)
[2016-11-07] MEDS ORDERED: ACETAMINOPHEN 1000 MG/100 ML VIAL (NON FORMULARY) IVPB ONE (02:20)
[2016-11-07] MEDS: METOPROLOL TARTRATE 5 MG/5 ML VIAL IVPB PRN (02:23)
[2016-11-07] MEDS: KCL 10 MEQ IVPB 100 ML IVPB SCH ×7 (03:01→18:58)
[2016-11-07] MEDS ORDERED: VANCOMYCIN 1,250 MG in DEXTROSE 5%-WATER - 250 ML IVPB ONE (03:01)
[2016-11-07] MEDS ORDERED: PIPERACILLIN/TAZOB 3.375 GM 3.375 GM in DEXTROSE 5%-WATER - 50 ML IVPB ONE (03:01)
[2016-11-07] MEDS ORDERED: DEXTROSE 5%-WATER - 50 ML IVPB ONE (03:19)
[2016-11-07] MEDS ORDERED: PIPERACILLIN/TAZOBACTAM 3.375 GM VIAL IVPB ONE (03:19)
[2016-11-07] MEDS: DEXTROSE 5%-WATER - 1,000 ML IV SCH (03:36)
--- NOTE | 2016-11-07 05:22 | HOSP ---
Subjective - Review of Symptoms Events since last encounter: [facility] paged racebook writer with new vitals at 2:20am, reporting tachycardia at 177 BPM and fever at 103 F rectal temp. PRN Lopressor given. Since blood was draining from PEG suction yesterday, Tylenol IVPB was ordered for fever (as opposed to Ibuprofen). Pt has trach and PEG in place. This was a new onset fever since 11/06/16 5:20 Tmax of 100.7 F oral temp, so blood and urine cultures were ordered. CXR from 11/06/16 9:03 revealed increased density/consolidation in the left lower lobe with a small left pleural effusion as well as interval slight increase in interstitial and airspace opacities in right lung base with questionable small right pleural effusion. New CXR ordered to assess interval change. EKG, troponins, and lactic acid were also ordered to further investigate cause of these symptoms. Physical Examination Vital Signs: Vital Signs Temperature 99.2 F 11/07/16 04:39 Pulse Rate 102 H 11/07/16 04:39 Respiratory Rate 14 11/07/16 04:39 Blood Pressure 120/66 11/07/16 04:39 O2 Sat by Pulse Oximetry (%) 99 11/06/16 10:30 Constitutional: Yes: Well Nourished, No Distress Cardiovascular: Yes: Tachycardia. No: JVD, Gallop, Murmur, Rub Respiratory: No: Accessory Muscle Use Gastrointestinal: Yes: WNL Labs: CBC, BMP 11/06/16 17:45 11/06/16 23:20 Hospitalist Encounter Assessment: IMAGING: EKG: sinus tachycardia A/P: 56yo F with PMH of ALS, chronic hypercapnic respiratory failure, intubated with PEG presents with new onset fever and tachycardia. 1) fever - f/u blood and urine cultures - f/u CXR - troponin 0.02, wnl - lactic acid 0.7, wnl - Tylenol 1000mg IVPB once given - Vancomycin 1250mg IVPB once given - Zosyn 3.375g IVPB once given 2) tachycardia - prn Lopressor given - HR 102 at 4:39 Visit type - Emergency Visit Emergency Visit: Yes ED Registration Date: 10/15/16 Care time: The patient presented to the Emergency Department on the above date and was hospitalized for further evaluation of their emergent condition. - New Patient This patient is new to me today: Yes Date on this admission: 11/07/16 - Critical Care Critical Care patient: No
[2016-11-07 07:32] LABS: BASOPHIL 0.3 % (0-2.0); EOSINOPHIL 0.2 % (0-4.5); MCH 29.5 pg (25.7-33.7); MCHC 32.9 g/dl (32.0-36.0); MEAN CELL VOLUME 89.9 fl (80-96); MEAN PLT VOLUME 9.6 fl (7.5-11.1); PLATELET COUNT 155 K/MM3 (134-434); RDW 14.7 % (11.6-15.6); WHITE BLOOD COUNT 13.8 K/mm3 (4.0-10.0)
[2016-11-07 08:42] LABS: ALK PHOS 102 U/L (45-117); ANION GAP 9 (8-16); BILIRUBIN,TOTAL 0.4 mg/dL (0.2-1.0); CALCIUM 7.8 mg/dL (8.5-10.1); CO2 34 mmol/L (21-32); CREATININE < 0.2 mg/dL (0.55-1.02); GLUCOSE,RANDOM 88 mg/dL (74-106); MAGNESIUM 1.7 mg/dL (1.8-2.4); PHOSPHOROUS 1.9 mg/dL (2.5-4.9); SGOT/AST 28 U/L (15-37); SGPT/ALT 30 U/L (12-78); TOT PROT 5.1 g/dl (6.4-8.2)
--- NOTE | 2016-11-07 08:56 | PN ---
Progress Note (short form) - Note Progress Note: RN approached me with question re: Lopressor this morning: As per RN, heart rate again elevated last night requiring IV Lopressor. Discussed changing from PRN order to standing order w/ hold parameters. Vitals and chart reviewed. She is comfortably asleep at the moment in no distress Selected Entries 11/07/16 04:39 Temperature 99.2 F Blood Pressure 120/66 Laboratory Tests 11/07/16 11/07/16 06:00 06:10 WBC 13.8 H D Hgb 9.4 L D Plt Count 155 Sodium 140 BUN 5 L Creatinine < 0.2 L IMP: PAF/ALS/ Chronic respiratory failure/Ileus REC: While enteral meds are held, agree with IV Lopressor for rate control with hold parameters outlined. Continue Lovenox. Please call again if needed. Problem List - Problems (1) Cardiac arrest Code(s): I46.9 - CARDIAC ARREST, CAUSE UNSPECIFIED (2) Pneumonia Code(s): J18.9 - PNEUMONIA, UNSPECIFIED ORGANISM Qualifiers: Pneumonia type: due to unspecified organism Laterality: left Lung location: upper lobe of lung Qualified Code(s): J18.1 - Lobar pneumonia, unspecified organism (3) Respiratory failure requiring intubation Code(s): J96.90 - RESPIRATORY FAILURE, UNSP, UNSP W HYPOXIA OR HYPERCAPNIA (4) ALS (amyotrophic lateral sclerosis) Code(s): G12.21 - AMYOTROPHIC LATERAL SCLEROSIS
[2016-11-07] MEDS ORDERED: METOPROLOL TARTRATE 5 MG/5 ML VIAL IVPB STA (08:58)
[2016-11-07] MEDS ORDERED: METOPROLOL TARTRATE 5 MG/5 ML VIAL IVPUSH STA (08:58)
[2016-11-07] MEDS ORDERED: KCL 10 MEQ IVPB 100 ML IVPB SCH ×2 (09:30→11:00)
[2016-11-07] MEDS ORDERED: PT OWN MED DRAWER 7, Y5N ONE ×2 (09:37→19:38)
[2016-11-07] MEDS ORDERED: SODIUM CHLORIDE 100 ML IVPB ONE ×2 (09:38→21:15)
[2016-11-07] MEDS ORDERED: PANTOPRAZOLE SODIUM 40 MG VIAL ONE ×3 (09:38→21:15)
[2016-11-07] MEDS: FUROSEMIDE 40 MG/4 ML INJECTABLE VIAL IVPUSH SCH (10:51)
[2016-11-07] MEDS: BACITRACIN 15 GM TUBE TOPICAL OINTMENT TP SCH (10:52)
[2016-11-07] MEDS: CHLORHEXIDINE GLUCONATE 0.12% 15ML CUP MM SCH ×2 (10:53→21:54)
[2016-11-07] MEDS: ENOXAPARIN NA (PORCINE) 80 MG/0.8 ML DISP.SYRIN SQ SCH ×2 (11:14→21:54)
[2016-11-07] MEDS ORDERED: METOPROLOL TARTRATE 5 MG/5 ML VIAL IVPUSH SCH (11:15)
[2016-11-07] MEDS: METOPROLOL TARTRATE 5 MG/5 ML VIAL IVPB SCH ×4 (11:19→21:53)
--- NOTE | 2016-11-07 11:41 | PN ---
Progress Note (short form) - Note Progress Note: PULMONARY Became hypoxic on SIMV during care, placed back on assist control. Febrile to 103 overnight. Last Vital Signs Temp Pulse Resp BP Pulse Ox 99.2 F 160 H 12 130/100 99 11/07/16 04:39 11/07/16 11:19 11/07/16 11:00 11/07/16 11:19 11/06/16 10:30 Gen: vented, more awake Heart: RRR Lung: decreased breath sounds at the bases Abd: soft, nontender Ext: no edema CBC, BMP 11/07/16 06:10 11/07/16 06:00 Active Medications Albuterol/Ipratropium (Duoneb -) 1 amp NEB QIDR [facility] Last Admin: 11/07/16 07:10 Dose: 1 amp Bacitracin (Bacitracin -) 1 applic TP DAILY [facility] Last Admin: 11/07/16 10:52 Dose: Not Given Chlorhexidine Gluconate (Peridex -) 15 ml MM BID [facility] Last Admin: 11/07/16 10:53 Dose: 15 ml Enoxaparin Sodium (Lovenox -) 80 mg SQ BID [facility] Last Admin: 11/07/16 11:14 Dose: 80 mg Furosemide (Lasix Injection -) 20 mg IVPUSH DAILY [facility] Last Admin: 11/07/16 10:51 Dose: 20 mg Dextrose (D5w -) 1,000 mls @ 42 mls/hr IV Q23H [facility] Last Admin: 11/07/16 03:36 Dose: 42 mls/hr Pantoprazole Sodium 40 mg/ (Sodium Chloride) 100 mls @ 200 mls/hr IVPB BID [facility] Last Admin: 11/06/16 23:09 Dose: 200 mls/hr Potassium Chloride (Potassium Chloride 10 Meq Premix Ivpb -) 100 mls @ 100 mls/ hr IVPB Q60M [facility] Stop: 11/07/16 11:59 Lidocaine HCl (Xylocaine 2% Jelly) 1 applic TP Q4H PRN PRN Reason: PAIN Metoprolol Tartrate (Lopressor Injection -) 5 mg IVPB Q4H-IV [facility] Last Admin: 11/07/16 11:19 Dose: 5 mg Scopolamine HBr (Transderm-Scop -) 1 patch TD Q72H [facility] Last Admin: 11/04/16 18:34 Dose: 1 patch A/P Acute on Chronic Hypoxic and Hypercapneic Respiratory Failure s/p Tracheostomy s/p Cardiac Arrest likely from Respiratory Failure Pneumonia / VAP Sepsis Lactic Acidosis resolved Advanced ALS Paroxysmal Atrial Fibrillation with RVR HTN Hyperthyroidism Atelectasis - monitoring off antibiotics, fever from ?atelectasis - f/u cultures - rate control with metoprolol - continue anticoagulation - replete lytes - spontaneous breathing trials as tolerated - continue discussions regarding goals of care, advanced directives
--- NOTE | 2016-11-07 12:48 | PN ---
Teaching Attending Note Name of Resident: Manjula Delvalle ATTENDING PHYSICIAN STATEMENT I saw and evaluated the patient. I reviewed the resident's note and discussed the case with the resident. I agree with the resident's findings and plan as documented. SUBJECTIVE:resting comfortable reported by RN that pt desaturated several times this Am when turning. also 3 loose BM today. unknown is passing flatus OBJECTIVE: Last Vital Signs Temp Pulse Resp BP Pulse Ox 99.2 F 160 H 19 130/100 98 11/07/16 04:39 11/07/16 11:19 11/07/16 11:15 11/07/16 11:19 11/07/16 10:10 Intake & Output 11/04/16 11/05/16 11/06/16 11/07/16 23:59 23:59 23:59 23:59 Intake Total 1408 2838 1186 668 Output Total 90 180 Balance 1318 2658 1186 668 Weight 186 lb 3.2 oz 180 lb 174 lb 6.4 oz 171 lb 6 oz General NAD CV S1 S2 tachycardic Lungs coarse breath sounds no wheezing anteriorly Abdomen soft +distention, not tympanic no BS Assessment & PLan 56-year-old woman with a history of ALS, chronic hypercapnic respiratory failure , HTN, hyperthyroidism, atrial fib, hyperlipidemia who was brought in to the ER after being intubated by EMS for acute respiratory distress and subsequently had cardiac arrest in the ER. 1. s/p cardiac arrest, secondary to hypoxia vs electrolyte abnormality 2. Acute on chronic hypoxic and hypercapnic respiratory failure- due to progression of ALS. has failed daily CPAP trials and trach on 10/25. desaturations likely due to movement vs atelectasis. spiked temp overnight 103. given zosyn/vanco x1. sepsis workup sent. can be related to atelectasis. will d/ w ID about empiric treatment as assoc with mild leukocytosis. vent management per pulmonary. chest PT, frequent suctioning 3. dysphagia- s/p PEG placement 10/29. 4. Ileus-concern for progression of ALS vs juan miguel syndrome. PEG on intermittent suction. multiple loose BM can be flow incontinence. Repeat AXR this am with moderate improvement on my read. will d/w GI about re-initiating tube feeds vs monitoring. some hesitation starting this time as no return of bowel function on exam. on low dose IVF 4. Sepsis due to worsening PNA vs UTI-Tm 103. received zosyn/vanco x1. will likely have low grade fevers given condition but with high fevers and some leukocytosis may require treamtent. will d/w ID. sepsis workup sent. 5. Hypokalemia-Kcl 10meq x3 6. Hypophosphatemia-kphos 7. HTN- controlled. on lopressor IV, 8. Paroxysmal atrial fibrillation/flutter with RVR- rate uncontrolled. will place back on standing dose of metoprolol for control. prn pushes for HR >120. on full dose lovenox 9. Acute anemia- some bleeding around PEG site per RN this AM. mild drop in Hgb. repeat CBC. txn for Hgb <7 10. Hyperglycemia-likely steroid induced A1c 4.3. 11. Depression- Continue Remeron 12. ALS 13. DVT prophylaxis- full dose lovenox
[2016-11-07] MEDS: PANTOPRAZOLE SODIUM 40 MG in SODIUM CHLORIDE 100 ML IVPB SCH ×2 (13:24→21:55)
[2016-11-07 13:30] LABS: MCH 29.1 pg (25.7-33.7); MCHC 32.2 g/dl (32.0-36.0); MEAN CELL VOLUME 90.3 fl (80-96); MEAN PLT VOLUME 9.8 fl (7.5-11.1); PLATELET COUNT 175 K/MM3 (134-434); RDW 14.9 % (11.6-15.6); WHITE BLOOD COUNT 19.1 K/mm3 (4.0-10.0)
[2016-11-07] MEDS ORDERED: MAGNESIUM SULF 50% (8.12 MEQ/2 ML-1 GM VIAL) IVPB ONE (13:41)
--- NOTE | 2016-11-07 15:14 | PN ---
Progress Note (short form) - Note Progress Note: antibiotics d/madelin 11/05 febrile to 103 overnight-received vanco/zosyn afib alert Vital Signs Period Temp Pulse Resp BP Sys/Hatch Pulse Ox Last 24 Hr 98.2 F-103.0 F 74-177 12- 106-164/66-100 98 cor-rrr lungs decreased bs at bases abd soft, distended, NT +BS, tympanitic ext no edema CBC, BMP 11/07/16 13:00 11/07/16 06:00 cdiff toxin and antigen negative cxray ?RLL infiltrate, worsening atelectasis on left a/p resp failure pneumonia/effusions ALS ileus recurrent atelectasis, ?pneumonia cultures ordered cdiff negative rising WBC with fever continue zosyn/vancomycin f/u cultures
--- NOTE | 2016-11-07 15:37 | PN ---
Physical Exam: SUBJECTIVE: Patient seen and examined at bedside today. PEG site intact, but w/ dried blood on gauze. No active bleeding currently. Overnight, pt had HR 177 was given lopressor. Pt was also febrile at 103 and received IV Tylenol. Stat sepsis workup was sent by night team- EKG, CXR, blood and urine Cx. EKG was done that showed sinus tachycardia. 1 dose vanco and zosyn given. Stool sent for c.diff. OBJECTIVE: Vital Signs Period Temp Pulse Resp BP Sys/Hatch Pulse Ox Last 24 Hr 98.2 F-103.0 F 74-177 03-20 106-164/66-100 98 GENERAL: The patient is fully oriented, in no acute distress. HEAD: Normal with no signs of trauma. EYES: PERRL, extraocular movements intact, sclera anicteric, conjunctiva clear. NECK: Trachea midline, full range of motion, supple. LUNGS: Breath sounds equal, clear to auscultation bilaterally, no wheezes, no crackles, no accessory muscle use. HEART: irregular rate and rhythm, S1, S2 without murmur, rub or gallop. ABDOMEN: Soft, nontender, nondistended, normoactive bowel sounds, no guarding, no rebound EXTREMITIES: 2+ posterior tibial pulses, warm, well-perfused, no edema. NEUROLOGICAL:difficult to assess, but pt responsive to commands Laboratory Results - last 24 hr 11/06/16 11/06/16 11/06/16 17:45 17:45 23:20 WBC 9.7 RBC 3.40 L Hgb 10.5 L Hct 30.9 L MCV 90.9 MCH 30.8 MCHC 33.9 RDW 14.8 Plt Count 173 MPV 10.1 Neutrophils % Lymphocytes % Monocytes % Eosinophils % Basophils % Sodium 142 141 Potassium 3.0 L 3.4 L Chloride 98 98 Carbon Dioxide 34 H 31 Anion Gap 10 12 BUN 6 L D 6 L Creatinine < 0.2 L < 0.2 L Creat Clearance w eGFR > 60 Random Glucose 87 82 Lactic Acid Calcium 8.3 L 8.0 L Phosphorus Magnesium Total Bilirubin 0.8 D AST 25 D ALT 30 Alkaline Phosphatase 116 Troponin I Total Protein 5.7 L Albumin 2.3 L 11/07/16 11/07/16 11/07/16 04:15 04:15 06:00 WBC RBC Hgb Hct MCV MCH MCHC RDW Plt Count MPV Neutrophils % Lymphocytes % Monocytes % Eosinophils % Basophils % Sodium 140 Potassium 2.8 L* Chloride 97 L Carbon Dioxide 34 H Anion Gap 9 BUN 5 L Creatinine < 0.2 L Creat Clearance w eGFR > 60 Random Glucose 88 Lactic Acid 0.7 Calcium 7.8 L Phosphorus 1.9 L D Magnesium 1.7 L Total Bilirubin 0.4 D AST 28 ALT 30 Alkaline Phosphatase 102 Troponin I 0.02 Total Protein 5.1 L Albumin 2.0 L 11/07/16 11/07/16 06:10 13:00 WBC 13.8 H D 19.1 H D RBC 3.17 L 3.83 D Hgb 9.4 L D 11.2 D Hct 28.5 L 34.6 D MCV 89.9 90.3 MCH 29.5 29.1 MCHC 32.9 32.2 RDW 14.7 14.9 Plt Count 155 175 MPV 9.6 9.8 Neutrophils % 87.0 H Lymphocytes % 8.3 Monocytes % 4.2 Eosinophils % 0.2 Basophils % 0.3 Sodium Potassium Chloride Carbon Dioxide Anion Gap BUN Creatinine Creat Clearance w eGFR Random Glucose Lactic Acid Calcium Phosphorus Magnesium Total Bilirubin AST ALT Alkaline Phosphatase Troponin I Total Protein Albumin Active Medications Generic Name Dose Route Start Last Admin Trade Name Freq PRN Reason Stop Dose Admin Albuterol/Ipratropium 1 amp 10/30/16 18:00 11/07/16 11:05 Duoneb - NEB 1 amp QIDR SILVIA Administration Bacitracin 1 applic 10/31/16 10:00 11/07/16 10:52 Bacitracin - TP Not Given DAILY SILVIA Chlorhexidine Gluconate 15 ml 10/30/16 22:00 11/07/16 10:53 Peridex - MM 15 ml BID SILVIA Administration Enoxaparin Sodium 80 mg 11/04/16 22:00 11/07/16 11:14 Lovenox - SQ 80 mg BID SILVIA Administration Furosemide 20 mg 11/06/16 10:00 11/07/16 10:51 Lasix Injection - IVPUSH 20 mg DAILY SILVIA Administration Dextrose 1,000 mls @ 42 mls/hr 11/04/16 15:45 11/07/16 03:36 D5w - IV 42 mls/hr Q23H SILVIA Administration Pantoprazole Sodium 40 mg/ 100 mls @ 200 mls/hr 11/06/16 23:00 11/07/16 13:24 Sodium Chloride IVPB 200 mls/hr BID SILVIA Administration Potassium Chloride 100 mls @ 100 mls/hr 11/07/16 15:30 Potassium Chloride 10 Meq Premix Ivpb - IVPB 11/07/16 18:29 Q60M SILVIA Potassium Phosphate 30 mm/ 260 mls @ 62.5 mls/hr 11/07/16 13:31 Dextrose IVPB 11/07/16 17:40 ONCE ONE Lidocaine HCl 1 applic 10/30/16 17:00 Xylocaine 2% Jelly TP Q4H PRN PAIN Metoprolol Tartrate 5 mg 11/07/16 11:15 11/07/16 14:47 Lopressor Injection - IVPB 5 mg Q4H-IV SIL[facility]IA Administration Piperacillin Sod/Tazobactam Sod 4.5 gm 11/07/16 15:15 Zosyn 4.5gm Ivpb (Pre-Docked) IVPB Q8H-IV SIL[facility]IA Scopolamine HBr 1 patch 11/01/16 19:15 11/04/16 18:34 Transderm-Scop - TD 1 patch Q72H SILVIA Administration Vancomycin HCl 1,000 mg 11/07/16 15:15 Vancomycin (Pre-Docked) IVPB BID SILVIA Protocol ASSESSMENT/PLAN: This is a 56 yr old F with PMH ALS, chronic hypercapnic resp failure, HTN, HLD, hyperthyroidism, goiter, intubated to ED via EMS due to resp arrest. In ED, pt had cardiac arrest (V tach) for 5 min, was resuscitated and stabilized, admitted to ICU. Pt now on med-surg floor. Admitted for acute on chronic respiratory failure secondary to ALS. # Acute on chronic respiratory failure secondary to ALS -Trach completed (10/24/16), s/p PEG (10/30/16) -Continue duonebs 1 amp PRN, scopolamine patch for incr. secretions -CXR (11/06/16): increased density/consolidation of L lower lobe with small L pleural effusion. Interval slight increase interstitial and airspace opacities in R lung base with questionable small R pleural effusion. No pneumothorax identified. #Ileus secondary to worsening ALS -NG tube has been d/c -Pt had diarrhea last night, C.diff sent - negative -Abdominal x-ray (11/06): dilated loops of large and small bowel again seen, not significantly changed # Fever secondary to PNA or atelectasis -F/u sepsis workup sent by night team (blood cx, urine cx) -Pt still continues to have fevers overnight, Tmax 103F last night -avoid NSAIDs -Continue vanco/zosyn #Blood draining from PEG -Pt placed on IV protonix 40mg BID prophylactically -Will monitor -F/u CBC at noon: 11.2/34.6 stable # Paroxysmal afib -EKG 11/06/16: afib with RVR, nonspecific ST and T wave abnormality - no significant change from 10/26/16 -Continue for rate control: -Lopressor 5mg IVPB q4h IV -Lopressor injection 5mg IVPB q4 IV PRN -Pt on Lovenox 80 mg SQ BID -Will continue to monitor #Diarrhea -C. diff toxin negative -Will monitor #Hypokalemia -Pt received 4 bags of KCl 10 mEq IVPB #Hypophosphatemia-resolved #Hyperthyroidism -Continue Methimazole 10 mg via NGT #Major Depressive Disorder -Continue Remeron 15mg via NGT # s/p Cardiac arrest in ED possibly secondary to hypoxia-resolved -Troponins negative x2 -Echo: regional wall motion abnormalities can't be ruled out. When compared to Echo 10/10/16: no wall motion abnormalities #Possible atelectasis-resolved #subtherapeutic INR- resolved # Diarrhea-resolved # Lactic acidosis secondary to cardiac arrest-resolved # Hypernatremia-resolved # Anxiety-resolved DVT prophylaxis -SCD's -Lovenox 80mg SQ BID Stress ulcer prophylaxis -Continue Zantac 150 mg NGT BID F/E/N -Monitor electrolytes -bowel rest Dispo -accepted by SNF, however unable to d/c d/t ileus Visit type - Emergency Visit Emergency Visit: No - New Patient This patient is new to me today: No - Critical Care Critical Care patient: No
[2016-11-07] MEDS ORDERED: PIPERACILLIN/TAZOB 4.5 GM/100 ML PRE-DOCKED IVPB SCH (15:45)
[2016-11-07] MEDS ORDERED: POTASSIUM PHOSPHATE 30 MM in DEXTROSE 5%-WATER - 500 ML IVPB ONE (15:45)
[2016-11-07] MEDS ORDERED: POTASSIUM PHOSPHATE 30 MM in DEXTROSE 5%-WATER - 250 ML IVPB ONE (15:45)
[2016-11-07] MEDS ORDERED: VANCOMYCIN 1 GRAM (PRE-DOCKED) 1,000 MG/250 ML BAG IVPB SCH (16:00)
[2016-11-07] MEDS ORDERED: MAGNESIUM SULF 50% (8.12 MEQ/2 ML-1 GM VIAL) ONE ×2 (16:28→16:35)
[2016-11-07] MEDS ORDERED: METOPROLOL TARTRATE 5 MG/5 ML VIAL IVPB PRN (16:32)
--- NOTE | 2016-11-07 16:40 | EKG ---
Test Reason : Blood Pressure : / mmHG Vent. Rate : 105 BPM Atrial Rate : 105 BPM P-R Int : 118 ms QRS Dur : 074 ms QT Int : 372 ms P-R-T Axes : 072 -01 022 degrees QTc Int : 491 ms SINUS TACHYCARDIA NONSPECIFIC T WAVE ABNORMALITY ABNORMAL ECG WHEN COMPARED WITH ECG OF 06-NOV-2016 09:42, SINUS RHYTHM HAS REPLACED ATRIAL FIBRILLATION Confirmed by MAJO BURTON MD ([id number] on 11/07/2016 4:39:55 PM Referred By: Confirmed By:MAJO BURTON MD
[2016-11-07] MEDS ORDERED: DEXTROSE 5%-WATER 100 ML IVPB ONE (17:34)
[2016-11-07] MEDS ORDERED: PIPERACILLIN/TAZOBACTAM 4.5 GM VIAL IVPB ONE (17:34)
[2016-11-07] MEDS: PIPERACILLIN/TAZOB 4.5 GM 4.5 GM in DEXTROSE 5%-WATER 100 ML IVPB SCH (18:33)
[2016-11-07] MEDS: VANCOMYCIN 1 GRAM (PRE-DOCKED) 1,000 MG/250 ML BAG IVPB SCH (20:04)
[2016-11-07] MEDS: SCOPOLAMINE HYDROBROMIDE 1 PATCH PATCH.TD72 TD SCH (21:54)
[2016-11-08] MEDS ORDERED: PIPERACILLIN/TAZOBACTAM 4.5 GM VIAL IVPB ONE ×3 (01:07→18:06)
[2016-11-08] MEDS ORDERED: DEXTROSE 5%-WATER 100 ML IVPB ONE ×3 (01:07→18:06)
[2016-11-08] MEDS: PIPERACILLIN/TAZOB 4.5 GM 4.5 GM in DEXTROSE 5%-WATER 100 ML IVPB SCH ×3 (02:16→18:10)
[2016-11-08] MEDS: METOPROLOL TARTRATE 5 MG/5 ML VIAL IVPB SCH ×6 (02:16→21:46)
[2016-11-08] MEDS: DEXTROSE 5%-WATER - 1,000 ML IV SCH ×2 (06:08→11:58)
[2016-11-08] MEDS: ALBUTEROL SO4 2.5/IPRATROPIUM 0.5 INH SOL 3 ML VIAL.NEB. NEB SCH ×4 (06:50→23:23)
[2016-11-08 08:18] LABS: MCH 30.2 pg (25.7-33.7); MCHC 33.5 g/dl (32.0-36.0); MEAN PLT VOLUME 10.4 fl (7.5-11.1); PLATELET COUNT 167 K/MM3 (134-434); RDW 14.9 % (11.6-15.6); WHITE BLOOD COUNT 14.7 K/mm3 (4.0-10.0)
[2016-11-08 08:26] LABS: ANION GAP 9 (8-16); CALCIUM 7.8 mg/dL (8.5-10.1); CO2 32 mmol/L (21-32); CREATININE < 0.2 mg/dL (0.55-1.02); GLUCOSE,RANDOM 100 mg/dL (74-106); MAGNESIUM 2.1 mg/dL (1.8-2.4); PHOSPHOROUS 2.9 mg/dL (2.5-4.9)
[2016-11-08] MEDS ORDERED: SODIUM CHLORIDE 100 ML IVPB ONE ×2 (10:22→20:54)
[2016-11-08] MEDS ORDERED: PANTOPRAZOLE SODIUM 40 MG VIAL ONE ×2 (10:22→20:54)
[2016-11-08] MEDS: VANCOMYCIN 1 GRAM (PRE-DOCKED) 1,000 MG/250 ML BAG IVPB SCH ×2 (10:28→19:57)
[2016-11-08] MEDS: BACITRACIN 15 GM TUBE TOPICAL OINTMENT TP SCH (10:30)
[2016-11-08] MEDS: ENOXAPARIN NA (PORCINE) 80 MG/0.8 ML DISP.SYRIN SQ SCH ×2 (10:30→21:47)
[2016-11-08] MEDS ORDERED: PT OWN MED DRAWER 7, Y5N ONE (10:50)
[2016-11-08] MEDS: FUROSEMIDE 40 MG/4 ML INJECTABLE VIAL IVPUSH SCH (10:51)
[2016-11-08] MEDS: CHLORHEXIDINE GLUCONATE 0.12% 15ML CUP MM SCH ×2 (10:51→21:49)
--- NOTE | 2016-11-08 11:46 | PN ---
Progress Note (short form) - Note Progress Note: PULMONARY Vented on volume assist control. No further fevers after antibiotics started. Last Vital Signs Temp Pulse Resp BP Pulse Ox 99.9 F H 110 H 19 127/77 94 L 11/08/16 06:00 11/08/16 10:35 11/08/16 09:05 11/08/16 10:35 11/08/16 09:05 Gen: vented, more awake Heart: tachycardic, regular Lung: bilateral rhonchi L>R Abd: soft, nontender Ext: no edema CBC, BMP 11/08/16 06:40 11/08/16 06:40 Active Medications Albuterol/Ipratropium (Duoneb -) 1 amp NEB QIDR [facility] Last Admin: 11/08/16 06:50 Dose: 1 amp Bacitracin (Bacitracin -) 1 applic TP DAILY [facility] Last Admin: 11/08/16 10:30 Dose: Not Given Chlorhexidine Gluconate (Peridex -) 15 ml MM BID [facility] Last Admin: 11/08/16 10:51 Dose: 15 ml Enoxaparin Sodium (Lovenox -) 80 mg SQ BID [facility] Last Admin: 11/08/16 10:30 Dose: 80 mg Furosemide (Lasix Injection -) 20 mg IVPUSH DAILY [facility] Last Admin: 11/08/16 10:51 Dose: 20 mg Dextrose (D5w -) 1,000 mls @ 42 mls/hr IV Q23H [facility] Last Admin: 11/08/16 06:08 Dose: 42 mls/hr Pantoprazole Sodium 40 mg/ (Sodium Chloride) 100 mls @ 200 mls/hr IVPB BID [facility] Last Admin: 11/07/16 21:55 Dose: 200 mls/hr Piperacillin Sod/Tazobactam (Sod 4.5 gm/ Dextrose) 100 mls @ 200 mls/hr IVPB Q8H-IV [facility] Last Admin: 11/08/16 02:16 Dose: 200 mls/hr Potassium Chloride (Potassium Chloride 10 Meq Premix Ivpb -) 100 mls @ 100 mls/ hr IVPB Q60M [facility] Stop: 11/08/16 13:44 Lidocaine HCl (Xylocaine 2% Jelly) 1 applic TP Q4H PRN PRN Reason: PAIN Metoprolol Tartrate (Lopressor Injection -) 5 mg IVPB Q4H-IV [facility] Last Admin: 11/08/16 10:35 Dose: 5 mg Metoprolol Tartrate (Lopressor Injection -) 5 mg IVPB Q4H PRN PRN Reason: HYPERTENSION Scopolamine HBr (Transderm-Scop -) 1 patch TD Q72H [facility] Last Admin: 11/07/16 21:54 Dose: 1 patch Vancomycin HCl (Vancomycin (Pre-Docked)) 1,000 mg IVPB BID@0800,2000 [facility] PRN Reason: Protocol Last Admin: 11/08/16 10:28 Dose: 1,000 mg A/P Acute on Chronic Hypoxic and Hypercapneic Respiratory Failure s/p Tracheostomy s/p Cardiac Arrest likely from Respiratory Failure Pneumonia / VAP Sepsis Lactic Acidosis resolved Advanced ALS Paroxysmal Atrial Fibrillation with RVR HTN Hyperthyroidism Atelectasis - continue antibiotics per ID - f/u cultures - chest PT, pulmonary toilet as pt with poor cough - rate control with metoprolol - continue anticoagulation - replete lytes - spontaneous breathing trials as tolerated
[2016-11-08] MEDS: KCL 10 MEQ IVPB 100 ML IVPB SCH ×3 (12:00→14:34)
[2016-11-08] MEDS: PANTOPRAZOLE SODIUM 40 MG in SODIUM CHLORIDE 100 ML IVPB SCH ×2 (12:37→21:46)
--- NOTE | 2016-11-08 12:43 | PN ---
Progress Note (short form) - Note Progress Note: alert vanco/zosyn started yesterday for fever to 103 and leuocytosis of 19k Vital Signs Period Temp Pulse Resp BP Sys/Hatch Pulse Ox Last 24 Hr 98.1 F-99.9 F 55-165 13-21 100-127/61-82 94-98 trach to vent cor-rrr lungs decreased bs at bases abd soft,nt distended +bs ext no edema CBC, BMP 11/08/16 06:40 11/08/16 06:40 cdiff toxin and antigen negative cxray ?RLL infiltrate, worsening atelectasis on left a/p resp failure pneumonia/effusions ALS ileus recurrent atelectasis, ?pneumonia cultures ordered cdiff negative temps and wbc improving continue zosyn/vancomycin f/u cultures
[2016-11-08 14:00] LABS: ANION GAP 10 (8-16); CALCIUM 7.9 mg/dL (8.5-10.1); CO2 33 mmol/L (21-32); CREATININE 0.2 mg/dL (0.55-1.02); GLUCOSE,RANDOM 136 mg/dL (74-106); MAGNESIUM 2.2 mg/dL (1.8-2.4); PHOSPHOROUS 2.5 mg/dL (2.5-4.9)
[2016-11-08 14:07] LABS: MCH 29.9 pg (25.7-33.7); MCHC 33.1 g/dl (32.0-36.0); MEAN CELL VOLUME 90.3 fl (80-96); MEAN PLT VOLUME 10.1 fl (7.5-11.1); PLATELET COUNT 169 K/MM3 (134-434); WHITE BLOOD COUNT 16.7 K/mm3 (4.0-10.0)
--- NOTE | 2016-11-08 14:56 | PN ---
Teaching Attending Note Name of Resident: Mnajula Delvalle ATTENDING PHYSICIAN STATEMENT I saw and evaluated the patient. I reviewed the resident's note and discussed the case with the resident. I agree with the resident's findings and plan as documented. SUBJECTIVE:resting comfortable. shake her head no when asked about SOB or abdominal pain no reports of desaturations multiple BMs reported by RN OBJECTIVE: Last Vital Signs Temp Pulse Resp BP Pulse Ox 99.9 F H 98 H 18 116/73 94 L 11/08/16 06:00 11/08/16 14:34 11/08/16 10:00 11/08/16 14:34 11/08/16 09:05 Intake & Output 11/05/16 11/06/16 11/07/16 11/08/16 23:59 23:59 23:59 23:59 Intake Total 2838 1186 2868 450 Output Total 180 Balance 2658 1186 2868 450 Weight 180 lb 174 lb 6.4 oz 171 lb 6 oz General NAD CV S1 S2 tachycardic Lungs coarse breath sounds no wheezing anteriorly Abdomen soft +distention, not tympanic hypoactive BS Assessment & PLan 56-year-old woman with a history of ALS, chronic hypercapnic respiratory failure , HTN, hyperthyroidism, atrial fib, hyperlipidemia who was brought in to the ER after being intubated by EMS for acute respiratory distress and subsequently had cardiac arrest in the ER. 1. s/p cardiac arrest, secondary to hypoxia vs electrolyte abnormality 2. Acute on chronic hypoxic and hypercapnic respiratory failure- due to progression of ALS. has failed daily CPAP trials and trach on 10/25. vent management per pulmonary. chest PT, frequent suctioning 3. dysphagia- s/p PEG placement 10/29. 4. Ileus-concern for progression of ALS vs juan miguel syndrome. PEG on intermittent suction. multiple loose BM. clinically looks to be improving. will d/w GI about initiating TF. if they want to continue to hold will need to consider TPN. on low dose IVF 4. Sepsis due to worsening PNA vs UTI-afebrile 24H. CXR showing infiltrate vs atelectasis. on zosyn/vanco day 2. check vanco prior to 4th dose. Bcx UCx pending. ID onboard 5. Hypokalemia-Kcl 10meq x3 6. Hypophosphatemia-resolved 7. HTN- controlled. on lopressor IV standing and prn. 8. Paroxysmal atrial fibrillation/flutter with RVR- rate improved. cont standing and prn doses for HR >120. on full dose lovenox 9. Acute anemia- some bleeding around PEG site per RN yesterday. mild drop in Hgb. on repeat yesterday improved, this AM is low again will repeat this afternoon as on full dose anticoagulation. txn for Hgb <7 10. Hyperglycemia-likely steroid induced A1c 4.3. 11. Depression- Continue Remeron 12. ALS 13. DVT prophylaxis- full dose lovenox
--- NOTE | 2016-11-08 18:02 | PN ---
Physical Exam: SUBJECTIVE: Patient seen and examined at bedside today. Afebrile overnight. Pt still having loose BM's this morning as per nurse, however has not been as tachycardic as rate was in 100's. Small amt blood noted on gauze around PEG site. OBJECTIVE: Vital Signs Period Temp Pulse Resp BP Sys/Hatch Pulse Ox Last 24 Hr 98.4 F-99.9 F 74-165 12-21 100-127/61-82 94-98 GENERAL: The patient is alert, and fully oriented, in no acute distress. HEAD: Normal with no signs of trauma. EYES: PERRL, extraocular movements intact, sclera anicteric, conjunctiva clear. NECK: Trachea midline, supple. LUNGS: Breath sounds equal, clear to auscultation bilaterally, no wheezes, no crackles, no accessory muscle use. HEART: Regular rate and rhythm, S1, S2 without murmur, rub or gallop. ABDOMEN: distended, active bowel sounds unlike day prior, no guarding, no rebound, no hepatosplenomegaly, no masses. EXTREMITIES: 2+ posterior tibial pulses, warm, well-perfused, no edema. NEUROLOGICAL:difficult to assess, but pt more interactive than day prior, able to follow commands Laboratory Results - last 24 hr 11/08/16 11/08/16 11/08/16 06:40 06:40 13:05 WBC 14.7 H 16.7 H RBC 2.98 L D 3.32 L Hgb 9.0 L D 9.9 L Hct 26.9 L D 30.0 L MCV 90.0 90.3 MCH 30.2 29.9 MCHC 33.5 33.1 RDW 14.9 15.0 Plt Count 167 169 MPV 10.4 10.1 Sodium 140 Potassium 2.9 L* Chloride 99 Carbon Dioxide 32 Anion Gap 9 BUN 5 L Creatinine < 0.2 L Random Glucose 100 Calcium 7.8 L Phosphorus 2.9 D Magnesium 2.1 D 11/08/16 13:05 WBC RBC Hgb Hct MCV MCH MCHC RDW Plt Count MPV Sodium 140 Potassium 3.7 D Chloride 97 L Carbon Dioxide 33 H Anion Gap 10 BUN 4 L Creatinine 0.2 L Random Glucose 136 H D Calcium 7.9 L Phosphorus 2.5 Magnesium 2.2 Active Medications Generic Name Dose Route Start Last Admin Trade Name Freq PRN Reason Stop Dose Admin Albuterol/Ipratropium 1 amp 10/30/16 18:00 11/08/16 12:05 Duoneb - NEB 1 amp QIDR SILVIA Administration Bacitracin 1 applic 10/31/16 10:00 11/08/16 10:30 Bacitracin - TP Not Given DAILY SILVIA Chlorhexidine Gluconate 15 ml 10/30/16 22:00 11/08/16 10:51 Peridex - MM 15 ml BID SILVIA Administration Enoxaparin Sodium 80 mg 11/04/16 22:00 11/08/16 10:30 Lovenox - SQ 80 mg BID SILVIA Administration Furosemide 20 mg 11/06/16 10:00 11/08/16 10:51 Lasix Injection - IVPUSH 20 mg DAILY SIL[facility]IA Administration Dextrose 1,000 mls @ 42 mls/hr 11/04/16 15:45 11/08/16 11:58 D5w - IV Not Given Q23H SIL[facility]IA Pantoprazole Sodium 40 mg/ 100 mls @ 200 mls/hr 11/06/16 23:00 11/08/16 12:37 Sodium Chloride IVPB 200 mls/hr BID SIL[facility]IA Administration Piperacillin Sod/Tazobactam 100 mls @ 200 mls/hr 11/07/16 18:00 11/08/16 12:01 Sod 4.5 gm/ Dextrose IVPB 200 mls/hr Q8H-IV [facility]IA Administration Lidocaine HCl 1 applic 10/30/16 17:00 Xylocaine 2% Jelly TP Q4H PRN PAIN Metoprolol Tartrate 5 mg 11/07/16 11:15 11/08/16 14:34 Lopressor Injection - IVPB 5 mg Q4H-IV [facility]IA Administration Metoprolol Tartrate 5 mg 11/07/16 16:32 Lopressor Injection - IVPB Q4H PRN HYPERTENSION Scopolamine HBr 1 patch 11/01/16 19:15 11/07/16 21:54 Transderm-Scop - TD 1 patch Q72H [facility]IL[facility]IA Administration Vancomycin HCl 1,000 mg 11/07/16 20:00 11/08/16 10:28 Vancomycin (Pre-Docked) IVPB 1,000 mg BID@0800,2000 [facility] Administration Protocol ASSESSMENT/PLAN: This is a 56 yr old F with PMH ALS, chronic hypercapnic resp failure, HTN, HLD, hyperthyroidism, goiter, intubated to ED via EMS due to resp arrest. In ED, pt had cardiac arrest (V tach) for 5 min, was resuscitated and stabilized, admitted to ICU. Pt now on med-surg floor. Admitted for acute on chronic respiratory failure secondary to ALS. # Acute on chronic respiratory failure secondary to ALS -Trach completed (10/24/16), s/p PEG (10/30/16) -Continue duonebs 1 amp PRN, scopolamine patch for incr. secretions -CXR (11/06/16): increased density/consolidation of L lower lobe with small L pleural effusion. Interval slight increase interstitial and airspace opacities in R lung base with questionable small R pleural effusion. No pneumothorax identified. #Ileus secondary to worsening ALS -NG tube has been d/c -Pt on intermittent suction through PEG, confirmed with nurse -Pt had diarrhea last night, C.diff sent - negative -Abdominal x-ray (11/06): dilated loops of large and small bowel again seen, not significantly changed -F/u with GI concerning feeding # Fever secondary to atelectasis -F/u sepsis workup sent by night team (blood cx, urine cx) -Pt afebrile overnight -avoid NSAIDs -Continue vanco/zosyn (Today is Day2) #Blood draining from PEG-resolved -Pt placed on IV protonix 40mg BID prophylactically -Will monitor -Last CBC improved # Paroxysmal afib -EKG 11/06/16: afib with RVR, nonspecific ST and T wave abnormality - no significant change from 10/26/16 -Continue for rate control: -Lopressor 5mg IVPB q4h IV -Lopressor injection 5mg IVPB q4 IV PRN -Pt on Lovenox 80 mg SQ BID -Will continue to monitor #Diarrhea -C. diff toxin negative -Will monitor #Hypokalemia -Pt received 3 bags of KCl 10 mEq IVPB #Hypophosphatemia-resolved #Hyperthyroidism -Continue Methimazole 10 mg via NGT #Major Depressive Disorder -Continue Remeron 15mg via NGT # s/p Cardiac arrest in ED possibly secondary to hypoxia-resolved -Troponins negative x2 -Echo: regional wall motion abnormalities can't be ruled out. When compared to Echo 10/10/16: no wall motion abnormalities #Possible atelectasis-resolved #subtherapeutic INR- resolved # Diarrhea-resolved # Lactic acidosis secondary to cardiac arrest-resolved # Hypernatremia-resolved # Anxiety-resolved DVT prophylaxis -SCD's -Lovenox 80mg SQ BID Stress ulcer prophylaxis -Continue Zantac 150 mg NGT BID F/E/N -Monitor electrolytes -bowel rest Dispo -accepted by SNF, however unable to d/c d/t ileus Visit type - Emergency Visit Emergency Visit: No - New Patient This patient is new to me today: No - Critical Care Critical Care patient: No - Discharge Referral Referred to [facility] Med P.C.: No
--- NOTE | 2016-11-08 18:34 | PN ---
GI Progress Note - Objective Vital Signs: Vital Signs Temperature 100.9 F H 11/08/16 18:00 Pulse Rate 100 H 11/08/16 18:11 Respiratory Rate 20 11/08/16 18:00 Blood Pressure 102/67 11/08/16 18:11 O2 Sat by Pulse Oximetry (%) 94 L 11/08/16 09:05 Constitutional: Well Nourished, Mild Distress Cardiovascular: Yes: Regular Rate and Rhythm Respiratory: Yes: CTA Bilaterally Gastrointestinal Inspection: Yes: Distention ...Percussion: Yes: Tympanitic Labs: CBC, BMP 11/08/16 13:05 11/08/16 13:05 INR, PTT INR 1.30 (0.82-1.09) H 10/28/16 17:45 - ....Imaging X-ray: Report Reviewed (generaloized distention-less than previous) Assessment/Plan Discussed with hospitalist Hgb stable-10.5 No melena Mild distention chronic as often occurs in patients with neurogenic bowel Minor bleed secondary to AC and NSAIDs Continue AC, d/c Nsaids START TF Jevity 1.5 @ 30cc per hr. Adjust to goal rate as per dietary Expect resolution
[2016-11-09] MEDS ORDERED: DEXTROSE 5%-WATER 100 ML IVPB ONE ×3 (00:56→17:48)
[2016-11-09] MEDS ORDERED: PIPERACILLIN/TAZOBACTAM 4.5 GM VIAL IVPB ONE ×3 (00:56→17:48)
[2016-11-09] MEDS: METOPROLOL TARTRATE 5 MG/5 ML VIAL IVPB SCH ×6 (02:15→21:35)
[2016-11-09] MEDS: PIPERACILLIN/TAZOB 4.5 GM 4.5 GM in DEXTROSE 5%-WATER 100 ML IVPB SCH ×3 (02:23→18:23)
[2016-11-09] MEDS ORDERED: INSULIN (NOVOLOG) ASPART 100 UNITS/ML 10ML VIAL ONE (06:03)
[2016-11-09] MEDS: DEXTROSE 5%-WATER - 1,000 ML IV SCH ×2 (06:12→10:36)
[2016-11-09] MEDS: ALBUTEROL SO4 2.5/IPRATROPIUM 0.5 INH SOL 3 ML VIAL.NEB. NEB SCH ×4 (06:30→23:30)
[2016-11-09 07:45] LABS: MCH 29.2 pg (25.7-33.7); MCHC 32.4 g/dl (32.0-36.0); MEAN CELL VOLUME 90.2 fl (80-96); MEAN PLT VOLUME 10.2 fl (7.5-11.1); PLATELET COUNT 156 K/MM3 (134-434); RDW 14.9 % (11.6-15.6); WHITE BLOOD COUNT 11.6 K/mm3 (4.0-10.0)
[2016-11-09 08:11] LABS: ANION GAP 12 (8-16); CALCIUM 7.9 mg/dL (8.5-10.1); CO2 31 mmol/L (21-32); CREATININE 0.2 mg/dL (0.55-1.02); GLUCOSE,RANDOM 122 mg/dL (74-106)
[2016-11-09 08:12] LABS: PHOSPHOROUS 2.2 mg/dL (2.5-4.9)
--- NOTE | 2016-11-09 08:26 | PN ---
Teaching Attending Note Name of Resident: Manjula Delvalle ATTENDING PHYSICIAN STATEMENT I saw and evaluated the patient. I reviewed the resident's note and discussed the case with the resident. I agree with the resident's findings and plan as documented. SUBJECTIVE: No specific complaints Seems comfortable OBJECTIVE: Vitals noted Hypokalemia noted ASSESSMENT AND PLAN: Appreciate fashion consultant selling input HBG drop noted Will obtain 6p CBC Continue antibiotics Continue Jevity and follow GI status closely Replete K. This may be contributing to ileus See resident note for full details
[2016-11-09] MEDS ORDERED: NAPH,MB-DB/K PH,MBDB POWDER PACKET PEG ONE (09:00)
[2016-11-09] MEDS ORDERED: PANTOPRAZOLE SODIUM 40 MG VIAL ONE ×2 (10:26→20:08)
[2016-11-09] MEDS ORDERED: SODIUM CHLORIDE 100 ML IVPB ONE ×2 (10:27→20:08)
[2016-11-09] MEDS: FUROSEMIDE 40 MG/4 ML INJECTABLE VIAL IVPUSH SCH (10:41)
[2016-11-09] MEDS: ENOXAPARIN NA (PORCINE) 80 MG/0.8 ML DISP.SYRIN SQ SCH ×2 (10:42→21:40)
[2016-11-09] MEDS: KCL 10 MEQ IVPB 100 ML IVPB SCH ×5 (10:42→18:23)
[2016-11-09] MEDS: VANCOMYCIN 1 GRAM (PRE-DOCKED) 1,000 MG/250 ML BAG IVPB SCH (11:40)
[2016-11-09] MEDS ORDERED: PT OWN MED DRAWER 7, Y5N ONE ×2 (11:54→20:07)
[2016-11-09] MEDS: BACITRACIN 15 GM TUBE TOPICAL OINTMENT TP SCH (12:04)
[2016-11-09] MEDS: CHLORHEXIDINE GLUCONATE 0.12% 15ML CUP MM SCH ×2 (12:10→21:40)
[2016-11-09] MEDS: PANTOPRAZOLE SODIUM 40 MG in SODIUM CHLORIDE 100 ML IVPB SCH ×2 (12:10→21:41)
--- NOTE | 2016-11-09 13:34 | PN ---
Progress Note (short form) - Note Progress Note: PULMONARY FAMILY PRESENT REMAINS ON MVV/IMV SET AT 10/BREATHING AT 22 TRACH IN PLAVE B/L COARSE RHONCHI S1S2 BS+ PEG B/L SCD'S LABS/MEDS/NOTES/IMAGING/MICRO REVIEWED Acute on Chronic Hypoxic and Hypercapneic Respiratory Failure s/p Tracheostomy s/p Cardiac Arrest likely from Respiratory Failure Pneumonia / VAP Sepsis Lactic Acidosis resolved Advanced ALS Paroxysmal Atrial Fibrillation with RVR HTN Hyperthyroidism Atelectasis - antibiotics per ID - f/u cultures - chest PT, pulmonary toilet - rate control with metoprolol - continue anticoagulation - replete lytes - spontaneous breathing trials as tolerated Clemencia ZAMORA MD
--- NOTE | 2016-11-09 16:49 | PN ---
Progress Note (short form) - Note Progress Note: alert improved less fever Vital Signs Period Temp Pulse Resp BP Sys/Hatch Pulse Ox Last 24 Hr 97.4 F-100.9 F 74-101 14-31 102-136/54-70 97-97 trach to vent cor-rrr lungs decresed bs at bases abd soft,nt, less distended ext no edema CBC, BMP 11/09/16 06:00 11/09/16 06:00 Microbiology 11/07/16 19:00 Sputum - Endotrachea Suction/Ventilator Gram Stain - Final 11/07/16 19:00 Sputum - Endotrachea Suction/Ventilator Sputum Culture - Preliminary Presumptive Ps Aeruginosa Yeast Like Organism 11/05/16 07:40 Blood - Peripheral Venous Blood Culture - Preliminary NO GROWTH OBTAINED AFTER 96 HOURS, INCUBATION TO CONTINUE FOR 1 DAYS. 11/05/16 07:50 Blood - Peripheral Venous Blood Culture - Preliminary NO GROWTH OBTAINED AFTER 96 HOURS, INCUBATION TO CONTINUE FOR 1 DAYS. 11/07/16 04:15 Blood - Peripheral Venous Blood Culture - Preliminary NO GROWTH OBTAINED AFTER 48 HOURS, INCUBATION TO CONTINUE FOR 3 DAYS. 11/07/16 04:15 Blood - Peripheral Venous Blood Culture - Preliminary NO GROWTH OBTAINED AFTER 48 HOURS, INCUBATION TO CONTINUE FOR 3 DAYS. cdiff toxin and antigen negative cxray ?RLL infiltrate, worsening atelectasis on left a/p resp failure pneumonia/effusions ALS ileus recurrent atelectasis, ?pneumonia cultures ordered cdiff negative temps and wbc improving continue zosyn- sputum with pseudomonas d/c vancomycin
--- NOTE | 2016-11-09 16:55 | PN ---
Physical Exam: SUBJECTIVE: Patient seen and examined at bedside. Pt interactive, son at bedside. Febrile last night 100.9F, feedings have restarted at 30 cc/hr. OBJECTIVE: Vital Signs Period Temp Pulse Resp BP Sys/Hatch Pulse Ox Last 24 Hr 97.4 F-100.9 F 74-101 14-31 102-136/54-70 97-97 GENERAL: The patient is interactive, in no acute distress. HEAD: Normal with no signs of trauma. EYES: PERRL, extraocular movements intact, sclera anicteric, conjunctiva clear. No ptosis. NECK: Trachea midline, full range of motion, supple. LUNGS: rhonchi appreciated b/l HEART: Regular rate and rhythm, S1, S2 without murmur, rub or gallop. ABDOMEN: Soft, nontender, distended, normoactive bowel sounds, no guarding, no rebound, no hepatosplenomegaly, no masses. PEG site intact. EXTREMITIES: 2+ posterior tibial pulses, warm, well-perfused, edema in R and L upper extremities NEUROLOGICAL: difficult to assess, but pt responds to commands Laboratory Results - last 24 hr 11/09/16 11/09/16 11/09/16 06:00 06:00 08:30 WBC 11.6 H D RBC 3.02 L Hgb 8.8 L D Hct 27.3 L MCV 90.2 MCH 29.2 MCHC 32.4 RDW 14.9 Plt Count 156 MPV 10.2 Sodium 139 Potassium 2.7 L* D Chloride 96 L Carbon Dioxide 31 Anion Gap 12 BUN 7 D Creatinine 0.2 L Random Glucose 122 H Calcium 7.9 L Phosphorus 2.2 L Magnesium 2.0 Vancomycin Pre-Dose 18.814 H* Active Medications Generic Name Dose Route Start Last Admin Trade Name Freq PRN Reason Stop Dose Admin Albuterol/Ipratropium 1 amp 10/30/16 18:00 11/09/16 11:15 Duoneb - NEB 1 amp QIDR SILVIA Administration Chlorhexidine Gluconate 15 ml 10/30/16 22:00 11/09/16 12:10 Peridex - MM 15 ml BID SILVIA Administration Enoxaparin Sodium 80 mg 11/04/16 22:00 11/09/16 10:42 Lovenox - SQ 80 mg BID SILVIA Administration Furosemide 20 mg 11/06/16 10:00 11/09/16 10:41 Lasix Injection - IVPUSH 20 mg DAILY SILVIA Administration Dextrose 1,000 mls @ 42 mls/hr 11/04/16 15:45 11/09/16 10:36 D5w - IV Not Given Q23H SILVIA Pantoprazole Sodium 40 mg/ 100 mls @ 200 mls/hr 11/06/16 23:00 11/09/16 12:10 Sodium Chloride IVPB 200 mls/hr BID SILVIA Administration Piperacillin Sod/Tazobactam 100 mls @ 200 mls/hr 11/07/16 18:00 11/09/16 10:41 Sod 4.5 gm/ Dextrose IVPB 200 mls/hr Q8H-IV SILVIA Administration Lidocaine HCl 1 applic 10/30/16 17:00 Xylocaine 2% Jelly TP Q4H PRN PAIN Metoprolol Tartrate 5 mg 11/07/16 11:15 11/09/16 15:13 Lopressor Injection - IVPB 5 mg Q4H-IV SILVIA Administration Metoprolol Tartrate 5 mg 11/07/16 16:32 Lopressor Injection - IVPB Q4H PRN HYPERTENSION Scopolamine HBr 1 patch 11/01/16 19:15 11/07/16 21:54 Transderm-Scop - TD 1 patch Q72H SILVIA Administration ASSESSMENT/PLAN: This is a 56 yr old F with PMH ALS, chronic hypercapnic resp failure, HTN, HLD, hyperthyroidism, goiter, intubated to ED via EMS due to resp arrest. In ED, pt had cardiac arrest (V tach) for 5 min, was resuscitated and stabilized, admitted to ICU. Pt now on med-surg floor. Admitted for acute on chronic respiratory failure secondary to ALS. # Acute on chronic respiratory failure secondary to ALS -Trach completed (10/24/16), s/p PEG (10/30/16) -Continue duonebs 1 amp PRN, scopolamine patch for incr. secretions -CXR (11/06/16): increased density/consolidation of L lower lobe with small L pleural effusion. Interval slight increase interstitial and airspace opacities in R lung base with questionable small R pleural effusion. No pneumothorax identified. #Ileus secondary to worsening ALS or hypokalemia -NG tube has been d/c -Pt on intermittent suction through PEG -C.diff negative -Abdominal x-ray (11/06): dilated loops of large and small bowel again seen, not significantly changed -Feeds restarted at 30 cc/hr # Fever secondary to atelectasis -Continue zosyn (Today is Day3) - vanco has been d/c , Pseudomonas in sputum #Blood draining from PEG-resolved -Pt placed on IV protonix 40mg BID prophylactically -Will monitor -Last CBC .11/18.3 will F/u CBC at 6pm # Paroxysmal afib -EKG 11/06/16: afib with RVR, nonspecific ST and T wave abnormality - no significant change from 10/26/16 -Continue for rate control: -Lopressor 5mg IVPB q4h IV -Lopressor injection 5mg IVPB q4 IV PRN -Pt on Lovenox 80 mg SQ BID -Will continue to monitor #Diarrhea -C. diff toxin negative -Will monitor #Hypokalemia -Pt received 4 bags of KCl 10 mEq IVPB -F/u K level at 6pm BMP #Hypophosphatemia -2 packets of neutrophosph given -Will follow level at 6pm #Hyperthyroidism -Continue Methimazole 10 mg via NGT #Major Depressive Disorder -Continue Remeron 15mg via NGT # s/p Cardiac arrest in ED possibly secondary to hypoxia-resolved -Troponins negative x2 -Echo: regional wall motion abnormalities can't be ruled out. When compared to Echo 10/10/16: no wall motion abnormalities #Possible atelectasis-resolved #subtherapeutic INR- resolved # Diarrhea-resolved # Lactic acidosis secondary to cardiac arrest-resolved # Hypernatremia-resolved # Anxiety-resolved DVT prophylaxis -SCD's -Lovenox 80mg SQ BID Stress ulcer prophylaxis -Continue Zantac 150 mg NGT BID F/E/N -Monitor electrolytes -Jevity tube feeds have restarted 30cc/hr Dispo -accepted by SNF, however unable to d/c d/t ileus Visit type - Emergency Visit Emergency Visit: No - New Patient This patient is new to me today: No - Critical Care Critical Care patient: No
[2016-11-09 18:18] LABS: BASOPHIL 0.2 % (0-2.0); EOSINOPHIL 0.6 % (0-4.5); MCH 30.5 pg (25.7-33.7); MCHC 33.5 g/dl (32.0-36.0); MEAN PLT VOLUME 10.1 fl (7.5-11.1); NEUTROPHILS 87.2 % (42.8-82.8); PLATELET COUNT 186 K/MM3 (134-434); RDW 15.3 % (11.6-15.6); WHITE BLOOD COUNT 10.8 K/mm3 (4.0-10.0)
[2016-11-09 18:36] LABS: ANION GAP 7 (8-16); CALCIUM 8.1 mg/dL (8.5-10.1); CO2 33 mmol/L (21-32); CREATININE 0.3 mg/dL (0.55-1.02); GLUCOSE,RANDOM 122 mg/dL (74-106)
[2016-11-09 21:38] LABS: ANION GAP 6 (8-16); CALCIUM 7.8 mg/dL (8.5-10.1); CO2 35 mmol/L (21-32); CREATININE 0.3 mg/dL (0.55-1.02); GLUCOSE,RANDOM 118 mg/dL (74-106)
[2016-11-10] MEDS ORDERED: PIPERACILLIN/TAZOBACTAM 4.5 GM VIAL IVPB ONE ×3 (02:11→17:34)
[2016-11-10] MEDS ORDERED: DEXTROSE 5%-WATER 100 ML IVPB ONE ×3 (02:12→17:35)
[2016-11-10] MEDS: METOPROLOL TARTRATE 5 MG/5 ML VIAL IVPB SCH ×6 (02:21→21:59)
[2016-11-10] MEDS: PIPERACILLIN/TAZOB 4.5 GM 4.5 GM in DEXTROSE 5%-WATER 100 ML IVPB SCH ×3 (02:24→17:36)
[2016-11-10] MEDS: ALBUTEROL SO4 2.5/IPRATROPIUM 0.5 INH SOL 3 ML VIAL.NEB. NEB SCH ×3 (07:00→19:31)
--- NOTE | 2016-11-10 07:09 | PN ---
Teaching Attending Note Name of Resident: Manjula Delvalle ATTENDING PHYSICIAN STATEMENT I saw and evaluated the patient. I reviewed the resident's note and discussed the case with the resident. I agree with the resident's findings and plan as documented. SUBJECTIVE: Appears comfortable OBJECTIVE: Vitals noted Today labs pending Current Medications Generic Name Dose Route Start Last Admin Trade Name Freq PRN Reason Stop Dose Admin Albuterol/Ipratropium 1 amp 10/30/16 18:00 11/10/16 07:00 Duoneb - NEB 1 amp QIDR SILVIA Administration Chlorhexidine Gluconate 15 ml 10/30/16 22:00 11/09/16 21:40 Peridex - MM 15 ml BID SILVIA Administration Enoxaparin Sodium 80 mg 11/04/16 22:00 11/10/16 09:24 Lovenox - SQ 80 mg BID SILVIA Administration Furosemide 20 mg 11/06/16 10:00 11/10/16 09:25 Lasix Injection - IVPUSH 20 mg DAILY SILVIA Administration Dextrose 1,000 mls @ 42 mls/hr 11/04/16 15:45 11/09/16 10:36 D5w - IV Not Given Q23H SILVIA Pantoprazole Sodium 40 mg/ 100 mls @ 200 mls/hr 11/06/16 23:00 11/10/16 09:24 Sodium Chloride IVPB 200 mls/hr BID SILVIA Administration Piperacillin Sod/Tazobactam 100 mls @ 200 mls/hr 11/07/16 18:00 11/10/16 02:24 Sod 4.5 gm/ Dextrose IVPB 200 mls/hr Q8H-IV SILVIA Administration Potassium Chloride 100 mls @ 100 mls/hr 11/10/16 10:30 11/10/16 10:10 Potassium Chloride 10 Meq Premix Ivpb - IVPB 11/10/16 14:29 100 mls/hr Q60M SILVIA Administration Lidocaine HCl 1 applic 10/30/16 17:00 Xylocaine 2% Jelly TP Q4H PRN PAIN Metoprolol Tartrate 5 mg 11/07/16 11:15 11/10/16 10:18 Lopressor Injection - IVPB 5 mg Q4H-IV SILVIA Administration Metoprolol Tartrate 5 mg 11/07/16 16:32 Lopressor Injection - IVPB Q4H PRN HYPERTENSION Scopolamine HBr 1 patch 11/01/16 19:15 11/07/16 21:54 Transderm-Scop - TD 1 patch Q72H SILVIA Administration ASSESSMENT AND PLAN: #PULMONARY Advanced ALS Pneumonia/atelectasis/effusions Acute on Chronic Hypoxic and Hypercapneic Respiratory Failure now s/p tracheostomy Trach completed (10/24/16), s/p PEG (10/30/16) CXR (11/06/16): increased density/consolidation of L lower lobe with small L pleural effusion. Interval slight increase interstitial and airspace opacities in R lung base with questionable small R pleural effusion. No pneumothorax identified. She has been afebrile and without leukocytosis Vent management per pulmonary Continue Zosyn Continue duonebs Continue Scopolamine patch for incr. secretions #CARDIOVASCULAR Paroxysmal Atrial Fibrillation s/p Cardiac Arrest likely from Respiratory Failure Chronic HTN Chronic hyperthyroidism HR controlled Continue Lopressor IV Q4h Continue Lovenox 80 mg BID #GI Ileus Likely neurogenic due to advanced ALS Abdominal x-ray (11/06): dilated loops of large and small bowel again seen, not significantly changed Seems to be clinically resolving She is tolerating PEG feeds well Continue Jevity and follow GI status closely GIB seems to have resolved (see below) Continue Protonix Continue to follow CBC #HEME Anemia HBG had dropped yesterday morning but the evening draw had corrected - ? lab error #ENDOCRINE Hyperthyroidism Continue Methimazole 10 mg via NGT #PSYCH Major Depressive Disorder Continue Remeron 15mg via NGT #FEN Hypokalemia Continue Jevity and follow GI status closely Continue to replete K as this may be contributing to ileus #PROPHYLAXIS On Lovenox (anticoagulated) On Protonix
[2016-11-10 09:09] LABS: BASOPHIL 0.4 % (0-2.0); EOSINOPHIL 0.8 % (0-4.5); MCH 30.6 pg (25.7-33.7); MCHC 33.5 g/dl (32.0-36.0); MEAN CELL VOLUME 91.5 fl (80-96); MEAN PLT VOLUME 10.5 fl (7.5-11.1); NEUTROPHILS 87.9 % (42.8-82.8); PLATELET COUNT 192 K/MM3 (134-434); RDW 14.9 % (11.6-15.6); WHITE BLOOD COUNT 9.1 K/mm3 (4.0-10.0)
[2016-11-10 09:12] LABS: ANION GAP 10 (8-16); CALCIUM 7.9 mg/dL (8.5-10.1); CO2 33 mmol/L (21-32); CREATININE 0.2 mg/dL (0.55-1.02); GLUCOSE,RANDOM 134 mg/dL (74-106)
[2016-11-10] MEDS ORDERED: PT OWN MED DRAWER 7, Y5N ONE ×2 (09:18→19:27)
[2016-11-10] MEDS ORDERED: SODIUM CHLORIDE 100 ML IVPB ONE ×2 (09:18→21:50)
[2016-11-10] MEDS ORDERED: PANTOPRAZOLE SODIUM 40 MG VIAL ONE ×2 (09:18→21:50)
[2016-11-10] MEDS: ENOXAPARIN NA (PORCINE) 80 MG/0.8 ML DISP.SYRIN SQ SCH ×2 (09:24→21:59)
[2016-11-10] MEDS: PANTOPRAZOLE SODIUM 40 MG in SODIUM CHLORIDE 100 ML IVPB SCH ×2 (09:24→22:01)
[2016-11-10] MEDS: FUROSEMIDE 40 MG/4 ML INJECTABLE VIAL IVPUSH SCH (09:25)
--- NOTE | 2016-11-10 09:52 | PN ---
Physical Exam: SUBJECTIVE: Patient seen and examined at bedside. Pt resting comfortably and interactive this morning. Received 4 bags of KCl 10mEq yesterday (including evening). Was afebrile last night. OBJECTIVE: Vital Signs Period Temp Pulse Resp BP Sys/Hatch Pulse Ox Last 24 Hr 97.4 F-99.0 F 78-98 10-31 112-136/54-80 97-99 GENERAL: The patient is awake, interactive, in no acute distress. HEAD: Normal with no signs of trauma. EYES: PERRL, extraocular movements intact, sclera anicteric, conjunctiva clear. No ptosis. NECK: Trachea midline, supple. LUNGS: bilateral rhonchi appreciated HEART: Regular rate and rhythm, S1, S2 without murmur, rub or gallop. ABDOMEN: Soft, nontender, improved distension from yesterday, normoactive bowel sounds, no guarding, no rebound EXTREMITIES: 2+ posterior tibial pulses, warm, well-perfused, improved edema in R and L hands NEUROLOGICAL: difficult to assess, but pt able to perform handgrip well, responsive to commands Laboratory Results - last 24 hr 11/09/16 11/09/16 11/09/16 08:30 17:00 17:00 WBC 10.8 H RBC 3.05 L Hgb 9.3 L Hct 27.7 L MCV 91.0 MCH 30.5 MCHC 33.5 RDW 15.3 Plt Count 186 MPV 10.1 Neutrophils % 87.2 H Lymphocytes % 7.3 L Monocytes % 4.7 Eosinophils % 0.6 D Basophils % 0.2 Sodium 140 Potassium 2.9 L* Chloride 100 Carbon Dioxide 33 H Anion Gap 7 L BUN 9 D Creatinine 0.3 L D Random Glucose 122 H Calcium 8.1 L Phosphorus Vancomycin Pre-Dose 18.814 H* 11/09/16 11/10/16 11/10/16 20:00 08:00 08:00 WBC 9.1 RBC 2.84 L Hgb 8.7 L Hct 26.0 L MCV 91.5 MCH 30.6 MCHC 33.5 RDW 14.9 Plt Count 192 MPV 10.5 Neutrophils % 87.9 H Lymphocytes % 6.8 L Monocytes % 4.1 Eosinophils % 0.8 Basophils % 0.4 Sodium 141 143 Potassium 3.2 L Chloride 100 100 Carbon Dioxide 35 H 33 H Anion Gap 6 L 10 BUN 8 9 Creatinine 0.3 L 0.2 L D Random Glucose 118 H 134 H Calcium 7.8 L 7.9 L Phosphorus 3.0 D Vancomycin Pre-Dose Active Medications Generic Name Dose Route Start Last Admin Trade Name Freq PRN Reason Stop Dose Admin Albuterol/Ipratropium 1 amp 10/30/16 18:00 11/10/16 07:00 Duoneb - NEB 1 amp QIDR SILVIA Administration Chlorhexidine Gluconate 15 ml 10/30/16 22:00 11/09/16 21:40 Peridex - MM 15 ml BID SILVIA Administration Enoxaparin Sodium 80 mg 11/04/16 22:00 11/10/16 09:24 Lovenox - SQ 80 mg BID SILVIA Administration Furosemide 20 mg 11/06/16 10:00 11/10/16 09:25 Lasix Injection - IVPUSH 20 mg DAILY SILVIA Administration Dextrose 1,000 mls @ 42 mls/hr 11/04/16 15:45 11/09/16 10:36 D5w - IV Not Given Q23H SILVIA Pantoprazole Sodium 40 mg/ 100 mls @ 200 mls/hr 11/06/16 23:00 11/10/16 09:24 Sodium Chloride IVPB 200 mls/hr BID SILVIA Administration Piperacillin Sod/Tazobactam 100 mls @ 200 mls/hr 11/07/16 18:00 11/10/16 02:24 Sod 4.5 gm/ Dextrose IVPB 200 mls/hr Q8H-IV SILVIA Administration Lidocaine HCl 1 applic 10/30/16 17:00 Xylocaine 2% Jelly TP Q4H PRN PAIN Metoprolol Tartrate 5 mg 11/07/16 11:15 11/10/16 06:09 Lopressor Injection - IVPB 5 mg Q4H-IV SILVIA Administration Metoprolol Tartrate 5 mg 11/07/16 16:32 Lopressor Injection - IVPB Q4H PRN HYPERTENSION Scopolamine HBr 1 patch 11/01/16 19:15 11/07/16 21:54 Transderm-Scop - TD 1 patch Q72H SILVIA Administration ASSESSMENT/PLAN: RESPIRATORY # Acute on chronic respiratory failure secondary to ALS -Trach completed (10/24/16), s/p PEG (10/30/16) -Continue duonebs 1 amp PRN, scopolamine patch for incr. secretions -CXR (11/06/16): increased density/consolidation of L lower lobe with small L pleural effusion. Interval slight increase interstitial and airspace opacities in R lung base with questionable small R pleural effusion. No pneumothorax identified. # Fever secondary to atelectasis -Continue zosyn (Today is Day4) - vanco has been d/c , Pseudomonas in sputum GI #Ileus secondary to worsening ALS or hypokalemia -NG tube has been d/c -Intermittent suction has been d/c -C.diff negative -Abdominal x-ray (11/06): dilated loops of large and small bowel again seen, not significantly changed -Feeds have been restarted at 30 cc/hr #Diarrhea -C. diff toxin negative HEME #Blood draining from PEG-resolved -Pt placed on IV protonix 40mg BID prophylactically -Will monitor -Last CBC , no signs of active bleeding -Will F/u next CBC 5pm CARDIO # Paroxysmal afib -EKG 11/06/16: afib with RVR, nonspecific ST and T wave abnormality - no significant change from 10/26/16 -Continue for rate control: -Lopressor 5mg IVPB q4h IV -Lopressor injection 5mg IVPB q4 IV PRN -Pt on Lovenox 80 mg SQ BID # s/p Cardiac arrest in ED possibly secondary to hypoxia-resolved -Troponins negative x2 -Echo: regional wall motion abnormalities can't be ruled out. When compared to Echo 10/10/16: no wall motion abnormalities # Lactic acidosis secondary to cardiac arrest-resolved #subtherapeutic INR- resolved ENDOCRINE #Hyperthyroidism -Continue Methimazole 10 mg via NGT PSYCH #Major Depressive Disorder -Continue Remeron 15mg via NGT PROPHYLAXIS #DVT prophylaxis -SCD's -Lovenox 80mg SQ BID #Stress ulcer prophylaxis -Continue Zantac 150 mg NGT BID F/E/N -Fluids -On D5w currently -Nutrition Consult -Electrolytes #Hypokalemia possibly secondary to ileus, diarrhea, or D5W -Pt received 4 bags of KCl 10 mEq IVPB yesterday -This AM: K 2.6, 4 additional bags KCl 10mEq IVPB ordered -Will f/u BMP at 5pm -Next episode of hypokalemia: 20mEq kdur through PEG -Nutrition -Jevity tube feeds 30cc/hr Dispo -accepted by SNF Visit type - Emergency Visit Emergency Visit: No - New Patient This patient is new to me today: No - Critical Care Critical Care patient: No
[2016-11-10] MEDS: DEXTROSE 5%-WATER - 1,000 ML IV SCH ×2 (10:00→11:20)
[2016-11-10] MEDS: KCL 10 MEQ IVPB 100 ML IVPB SCH ×4 (10:10→13:17)
--- NOTE | 2016-11-10 13:29 | PN ---
Progress Note (short form) - Note Progress Note: alert improved no fever looks comfortable on tubefeeds Vital Signs Period Temp Pulse Resp BP Sys/Hatch Pulse Ox Last 24 Hr 98.1 F-99.0 F 78-98 10-31 114-156/54-80 99 trach to vent cor-rrr lungs decreased bs at bases abd soft,nt +GT ext no edema CBC, BMP 11/10/16 08:00 11/10/16 08:00 Microbiology 11/07/16 19:00 Sputum - Endotrachea Suction/Ventilator Gram Stain - Final 11/07/16 19:00 Sputum - Endotrachea Suction/Ventilator Sputum Culture - Final Pseudomonas Aeruginosa Yeast Like Organism 11/05/16 07:40 Blood - Peripheral Venous Blood Culture - Final NO GROWTH AFTER 5 DAYS INCUBATION 11/05/16 07:50 Blood - Peripheral Venous Blood Culture - Final NO GROWTH AFTER 5 DAYS INCUBATION 11/07/16 04:15 Blood - Peripheral Venous Blood Culture - Preliminary NO GROWTH OBTAINED AFTER 72 HOURS, INCUBATION TO CONTINUE FOR 2 DAYS. 11/07/16 04:15 Blood - Peripheral Venous Blood Culture - Preliminary NO GROWTH OBTAINED AFTER 72 HOURS, INCUBATION TO CONTINUE FOR 2 DAYS. cdiff toxin and antigen negative cxray ?RLL infiltrate, worsening atelectasis on left a/p resp failure pneumonia/effusions ALS ileus recurrent atelectasis, ?pneumonia cdiff negative temps and wbc improving continue zosyn day #3- sputum with pseudomonas
--- NOTE | 2016-11-10 14:09 | PN ---
Progress Note (short form) - Note Progress Note: PULMONARY Vented on volume assist control. No further fevers, awake, alert. Last Vital Signs Temp Pulse Resp BP Pulse Ox 98.6 F 86 10 L 156/76 99 11/10/16 09:50 11/10/16 10:18 11/10/16 10:11 11/10/16 10:18 11/09/16 21:00 Gen: vented, more awake Heart: tachycardic, regular Lung: bilateral rhonchi L>R Abd: soft, nontender Ext: no edema CBC, BMP 11/10/16 08:00 11/10/16 08:00 Active Medications Albuterol/Ipratropium (Duoneb -) 1 amp NEB QIDR [facility] Last Admin: 11/10/16 11:57 Dose: 1 amp Chlorhexidine Gluconate (Peridex -) 15 ml MM BID [facility] Last Admin: 11/09/16 21:40 Dose: 15 ml Enoxaparin Sodium (Lovenox -) 80 mg SQ BID [facility] Last Admin: 11/10/16 09:24 Dose: 80 mg Furosemide (Lasix Injection -) 20 mg IVPUSH DAILY [facility] Last Admin: 11/10/16 09:25 Dose: 20 mg Dextrose (D5w -) 1,000 mls @ 42 mls/hr IV Q23H [facility] Last Admin: 11/10/16 11:20 Dose: Not Given Pantoprazole Sodium 40 mg/ (Sodium Chloride) 100 mls @ 200 mls/hr IVPB BID [facility] Last Admin: 11/10/16 09:24 Dose: 200 mls/hr Piperacillin Sod/Tazobactam (Sod 4.5 gm/ Dextrose) 100 mls @ 200 mls/hr IVPB Q8H-IV [facility] Last Admin: 11/10/16 11:21 Dose: 200 mls/hr Potassium Chloride (Potassium Chloride 10 Meq Premix Ivpb -) 100 mls @ 100 mls/ hr IVPB Q60M [facility] Stop: 11/10/16 14:29 Last Admin: 11/10/16 13:17 Dose: 100 mls/hr Lidocaine HCl (Xylocaine 2% Jelly) 1 applic TP Q4H PRN PRN Reason: PAIN Metoprolol Tartrate (Lopressor Injection -) 5 mg IVPB Q4H-IV [facility] Last Admin: 11/10/16 10:18 Dose: 5 mg Metoprolol Tartrate (Lopressor Injection -) 5 mg IVPB Q4H PRN PRN Reason: HYPERTENSION Scopolamine HBr (Transderm-Scop -) 1 patch TD Q72H [facility] Last Admin: 11/07/16 21:54 Dose: 1 patch A/P Acute on Chronic Hypoxic and Hypercapneic Respiratory Failure s/p Tracheostomy s/p Cardiac Arrest likely from Respiratory Failure Pneumonia / VAP Sepsis Lactic Acidosis resolved Advanced ALS Paroxysmal Atrial Fibrillation with RVR HTN Hyperthyroidism Atelectasis - continue antibiotics per ID - chest PT, pulmonary toilet as pt with poor cough - rate control with metoprolol - continue anticoagulation - replete lytes - spontaneous breathing trials as tolerated - enteral feeds
[2016-11-10] MEDS: CHLORHEXIDINE GLUCONATE 0.12% 15ML CUP MM SCH ×2 (14:57→22:01)
[2016-11-10 18:21] LABS: BASOPHIL 0.3 % (0-2.0); EOSINOPHIL 0.5 % (0-4.5); MCH 30.2 pg (25.7-33.7); MCHC 33.3 g/dl (32.0-36.0); MEAN CELL VOLUME 90.6 fl (80-96); MEAN PLT VOLUME 10.3 fl (7.5-11.1); PLATELET COUNT 193 K/MM3 (134-434); WHITE BLOOD COUNT 9.7 K/mm3 (4.0-10.0)
[2016-11-10 18:47] LABS: ANION GAP 9 (8-16); CALCIUM 8.1 mg/dL (8.5-10.1); CO2 33 mmol/L (21-32); CREATININE 0.2 mg/dL (0.55-1.02); GLUCOSE,RANDOM 137 mg/dL (74-106)
[2016-11-10] MEDS ORDERED: POTASSIUM CHLORIDE ORAL LIQUID 20 MEQ/15 ML PEG ONE (19:04)
[2016-11-10] MEDS: SCOPOLAMINE HYDROBROMIDE 1 PATCH PATCH.TD72 TD SCH (19:35)
[2016-11-11] MEDS: ALBUTEROL SO4 2.5/IPRATROPIUM 0.5 INH SOL 3 ML VIAL.NEB. NEB SCH ×5 (00:05→23:08)
[2016-11-11] MEDS ORDERED: DEXTROSE 5%-WATER 100 ML IVPB ONE ×2 (01:15→10:25)
[2016-11-11] MEDS ORDERED: PIPERACILLIN/TAZOBACTAM 4.5 GM VIAL IVPB ONE ×3 (01:15→17:34)
[2016-11-11] MEDS: PIPERACILLIN/TAZOB 4.5 GM 4.5 GM in DEXTROSE 5%-WATER 100 ML IVPB SCH ×3 (01:33→18:32)
[2016-11-11] MEDS: METOPROLOL TARTRATE 5 MG/5 ML VIAL IVPB SCH ×6 (02:07→21:54)
[2016-11-11 08:16] LABS: MCH 30.5 pg (25.7-33.7); MCHC 33.6 g/dl (32.0-36.0); MEAN CELL VOLUME 90.8 fl (80-96); MEAN PLT VOLUME 10.3 fl (7.5-11.1); PLATELET COUNT 198 K/MM3 (134-434); RDW 15.3 % (11.6-15.6); WHITE BLOOD COUNT 7.4 K/mm3 (4.0-10.0)
[2016-11-11 08:17] LABS: CALCIUM 7.7 mg/dL (8.5-10.1)
[2016-11-11 08:21] LABS: ANION GAP 7 (8-16); CO2 35 mmol/L (21-32); CREATININE 0.2 mg/dL (0.55-1.02); GLUCOSE,RANDOM 131 mg/dL (74-106)
--- NOTE | 2016-11-11 09:28 | PN ---
Physical Exam: SUBJECTIVE: Patient seen and examined Seems comfortable OBJECTIVE: Vital Signs Period Temp Pulse Resp BP Sys/Hatch Pulse Ox Last 24 Hr 98.1 F-100.2 F 81-102 10-22 114-156/63-88 GEN: Awake, alert CVS: RRR PULM: scattered rhonchi ABD: soft, NT/ND, NABS EXTREM: warm ,well perfused Laboratory Results - last 24 hr 11/10/16 11/10/16 11/10/16 08:00 08:00 17:30 WBC 9.1 RBC 2.84 L Hgb 8.7 L Hct 26.0 L MCV 91.5 MCH 30.6 MCHC 33.5 RDW 14.9 Plt Count 192 MPV 10.5 Neutrophils % 87.9 H Lymphocytes % 6.8 L Monocytes % 4.1 Eosinophils % 0.8 Basophils % 0.4 Sodium 143 143 Potassium 2.6 L* 2.8 L* Chloride 100 101 Carbon Dioxide 33 H 33 H Anion Gap 10 9 BUN 9 8 Creatinine 0.2 L D 0.2 L Random Glucose 134 H 137 H Calcium 7.9 L 8.1 L Phosphorus 3.0 D 11/10/16 11/11/16 11/11/16 17:30 07:10 07:10 WBC 9.7 7.4 RBC 2.97 L 2.73 L Hgb 9.0 L 8.3 L Hct 26.9 L 24.8 L MCV 90.6 90.8 MCH 30.2 30.5 MCHC 33.3 33.6 RDW 15.0 15.3 Plt Count 193 198 MPV 10.3 10.3 Neutrophils % 89.0 H Lymphocytes % 6.2 L Monocytes % 4.0 Eosinophils % 0.5 Basophils % 0.3 Sodium 143 Potassium Chloride 101 Carbon Dioxide 35 H Anion Gap 7 L BUN 8 Creatinine 0.2 L Random Glucose 131 H Calcium 7.7 L Phosphorus Active Medications Generic Name Dose Route Start Last Admin Trade Name Freq PRN Reason Stop Dose Admin Albuterol/Ipratropium 1 amp 10/30/16 18:00 11/11/16 06:25 Duoneb - NEB 1 amp QIDR SILVIA Administration Chlorhexidine Gluconate 15 ml 10/30/16 22:00 11/10/16 22:01 Peridex - MM 15 ml BID SILVIA Administration Enoxaparin Sodium 80 mg 11/04/16 22:00 11/10/16 21:59 Lovenox - SQ 80 mg BID SILVIA Administration Furosemide 20 mg 11/06/16 10:00 11/10/16 09:25 Lasix Injection - IVPUSH 20 mg DAILY SILVIA Administration Dextrose 1,000 mls @ 42 mls/hr 11/04/16 15:45 11/10/16 11:20 D5w - IV Not Given Q23H SILVIA Pantoprazole Sodium 40 mg/ 100 mls @ 200 mls/hr 11/06/16 23:00 11/10/16 22:01 Sodium Chloride IVPB 200 mls/hr BID SILVIA Administration Piperacillin Sod/Tazobactam 100 mls @ 200 mls/hr 11/07/16 18:00 11/11/16 01:33 Sod 4.5 gm/ Dextrose IVPB 200 mls/hr Q8H-IV [facility]ILVIA Administration Lidocaine HCl 1 applic 10/30/16 17:00 Xylocaine 2% Jelly TP Q4H PRN PAIN Metoprolol Tartrate 5 mg 11/07/16 11:15 11/11/16 06:26 Lopressor Injection - IVPB 5 mg Q4H-IV SILVIA Administration Metoprolol Tartrate 5 mg 11/07/16 16:32 Lopressor Injection - IVPB Q4H PRN HYPERTENSION Scopolamine HBr 1 patch 11/01/16 19:15 11/10/16 19:35 Transderm-Scop - TD 1 patch Q72H SILVIA Administration ASSESSMENT/PLAN: The patient is a 56 year old female with a significant past medical history of advanced ALS who is hospital day #27 with hypercarbic respiratory failure. #PULMONARY Advanced ALS Pneumonia/atelectasis/effusions Acute on Chronic Hypoxic and Hypercapneic Respiratory Failure now s/p tracheostomy Trach completed (10/24/16), s/p PEG (10/30/16) CXR (11/06/16): increased density/consolidation of L lower lobe with small L pleural effusion. Interval slight increase interstitial and airspace opacities in R lung base with questionable small R pleural effusion. No pneumothorax identified. Sputum grew pseudomonas 11/07 She has been afebrile and without leukocytosis Vent management per pulmonary Continue Zosyn Continue duonebs Continue Scopolamine patch for incr. secretions #CARDIOVASCULAR Paroxysmal Atrial Fibrillation s/p Cardiac Arrest likely from Respiratory Failure Chronic HTN Chronic hyperthyroidism HR controlled Continue Lopressor IV Q4h Continue Lovenox 80 mg BID #GI Ileus Likely neurogenic due to advanced ALS Abdominal x-ray (11/06): dilated loops of large and small bowel again seen, not significantly changed Seems to be clinically resolving She is tolerating PEG feeds well Continue Jevity and follow GI status closely HBG dropped slightly form yesterday Will follow closely Continue Protonix Continue to follow CBC #HEME Anemia As above, will follow HBG closely #ENDOCRINE Hyperthyroidism Continue Methimazole 10 mg via NGT #PSYCH Major Depressive Disorder Continue Remeron 15mg via NGT #FEN Ongoing Hypokalemia Dietary consult appreciated TFs changed to Osmolite with free water Prosource added Continue to replete K as this may be contributing to ileus Will change to standing oral KCl 20mEQ TID and follow closely #PROPHYLAXIS On Lovenox (anticoagulated) On Protonix Visit type - Emergency Visit Emergency Visit: Yes ED Registration Date: 10/15/16 Care time: The patient presented to the Emergency Department on the above date and was hospitalized for further evaluation of their emergent condition. - New Patient This patient is new to me today: No - Critical Care Critical Care patient: No
[2016-11-11] MEDS: DEXTROSE 5%-WATER - 1,000 ML IV SCH (10:00)
--- NOTE | 2016-11-11 10:17 | PN ---
Progress Note (short form) - Note Progress Note: alert improved looks comfortable on tube feeds Vital Signs Period Temp Pulse Resp BP Sys/Hatch Pulse Ox Last 24 Hr 98.1 F-100.2 F 81-102 12-18 114-156/63-88 cor-rrr lungs decreased bs at bases, bibasilar crackles abd soft,nt distention unchanged ext no edema CBC, BMP 11/11/16 07:10 11/11/16 07:10 Microbiology 11/07/16 04:15 Blood - Peripheral Venous Blood Culture - Preliminary NO GROWTH OBTAINED AFTER 96 HOURS, INCUBATION TO CONTINUE FOR 1 DAYS. 11/07/16 04:15 Blood - Peripheral Venous Blood Culture - Preliminary NO GROWTH OBTAINED AFTER 96 HOURS, INCUBATION TO CONTINUE FOR 1 DAYS. 11/07/16 19:00 Sputum - Endotrachea Suction/Ventilator Gram Stain - Final 11/07/16 19:00 Sputum - Endotrachea Suction/Ventilator Sputum Culture - Final Pseudomonas Aeruginosa Yeast Like Organism 11/05/16 07:40 Blood - Peripheral Venous Blood Culture - Final NO GROWTH AFTER 5 DAYS INCUBATION 11/05/16 07:50 Blood - Peripheral Venous Blood Culture - Final NO GROWTH AFTER 5 DAYS INCUBATION cdiff toxin and antigen negative cxray ?RLL infiltrate, worsening atelectasis on left a/p resp failure pneumonia/effusions ALS ileus recurrent atelectasis, ?pneumonia cdiff negative temps and wbc improving continue zosyn day #4- sputum with pseudomonas tolerating feeds
[2016-11-11] MEDS ORDERED: PANTOPRAZOLE SODIUM 40 MG VIAL ONE ×2 (10:25→21:11)
[2016-11-11] MEDS ORDERED: SODIUM CHLORIDE 100 ML IVPB ONE ×2 (10:25→21:11)
[2016-11-11] MEDS: FUROSEMIDE 40 MG/4 ML INJECTABLE VIAL IVPUSH SCH (10:29)
[2016-11-11] MEDS: ENOXAPARIN NA (PORCINE) 80 MG/0.8 ML DISP.SYRIN SQ SCH ×2 (10:34→21:55)
[2016-11-11] MEDS ORDERED: POTASSIUM CHLORIDE ORAL LIQUID 20 MEQ/15 ML PO ONE (10:37)
[2016-11-11] MEDS: POTASSIUM CHLORIDE ORAL LIQUID 20 MEQ/15 ML PEG SCH ×3 (10:40→21:55)
[2016-11-11] MEDS: PANTOPRAZOLE SODIUM 40 MG in SODIUM CHLORIDE 100 ML IVPB SCH ×2 (11:08→21:55)
--- NOTE | 2016-11-11 12:06 | PN ---
Progress Note (short form) - Note Progress Note: PULMONARY Vented on volume assist control. Awake, alert. Remains afebrile. Last Vital Signs Temp Pulse Resp BP Pulse Ox 99.8 F H 100 H 15 139/80 99 11/11/16 06:00 11/11/16 10:34 11/11/16 10:00 11/11/16 10:34 11/11/16 10:00 Gen: vented, more awake Heart: tachycardic, regular Lung: bilateral rhonchi L>R Abd: soft, nontender Ext: no edema CBC, BMP 11/11/16 07:10 11/11/16 07:10 Active Medications Albuterol/Ipratropium (Duoneb -) 1 amp NEB QIDR [facility] Last Admin: 11/11/16 06:25 Dose: 1 amp Amino Acids (Prosource No Carb Liquid Pkt) 30 ml PO BID@0800,1730 [facility] Chlorhexidine Gluconate (Peridex -) 15 ml MM BID [facility] Last Admin: 11/10/16 22:01 Dose: 15 ml Enoxaparin Sodium (Lovenox -) 80 mg SQ BID [facility] Last Admin: 11/11/16 10:34 Dose: 80 mg Furosemide (Lasix Injection -) 20 mg IVPUSH DAILY [facility] Last Admin: 11/11/16 10:29 Dose: 20 mg Pantoprazole Sodium 40 mg/ (Sodium Chloride) 100 mls @ 200 mls/hr IVPB BID [facility] Last Admin: 11/11/16 11:08 Dose: 200 mls/hr Piperacillin Sod/Tazobactam (Sod 4.5 gm/ Dextrose) 100 mls @ 200 mls/hr IVPB Q8H-IV [facility] Last Admin: 11/11/16 10:34 Dose: 200 mls/hr Lidocaine HCl (Xylocaine 2% Jelly) 1 applic TP Q4H PRN PRN Reason: PAIN Metoprolol Tartrate (Lopressor Injection -) 5 mg IVPB Q4H-IV [facility] Last Admin: 11/11/16 10:34 Dose: 5 mg Metoprolol Tartrate (Lopressor Injection -) 5 mg IVPB Q4H PRN PRN Reason: HYPERTENSION Potassium Chloride (Potassium Chloride Oral Liquid) 20 meq PEG TID [facility] Last Admin: 11/11/16 10:40 Dose: 20 meq Potassium Chloride (Potassium Chloride Oral Liquid) 40 meq PO ONCE ONE Stop: 11/11/16 10:38 Scopolamine HBr (Transderm-Scop -) 1 patch TD Q72H [facility] Last Admin: 11/10/16 19:35 Dose: 1 patch A/P Acute on Chronic Hypoxic and Hypercapneic Respiratory Failure s/p Tracheostomy s/p Cardiac Arrest likely from Respiratory Failure Pneumonia / VAP Sepsis Lactic Acidosis resolved Advanced ALS Paroxysmal Atrial Fibrillation with RVR HTN Hyperthyroidism Atelectasis - continue antibiotics per ID - chest PT, pulmonary toilet as pt with poor cough - rate control with metoprolol - continue anticoagulation - replete lytes - spontaneous breathing trials as tolerated - enteral feeds - PT
[2016-11-11] MEDS ORDERED: POTASSIUM CHLORIDE ORAL LIQUID 20 MEQ/15 ML PEG SCH (14:00)
[2016-11-11] MEDS: NYSTATIN 500,000 UNITS/5 ML SUSPENSION PO SCH ×2 (17:08→23:43)
[2016-11-11] MEDS ORDERED: DEXTROSE 5%-WATER 200 ML IVPB ONE (17:34)
[2016-11-11] MEDS: AMINO ACIDS/PROTEIN HYDROLYS 30 ML LIQUID.PKT PO SCH (17:37)
[2016-11-11] MEDS: CHLORHEXIDINE GLUCONATE 0.12% 15ML CUP MM SCH (21:44)
[2016-11-11 21:56] LABS: ANION GAP 6 (8-16); CALCIUM 8.1 mg/dL (8.5-10.1); CO2 36 mmol/L (21-32); CREATININE 0.3 mg/dL (0.55-1.02); GLUCOSE,RANDOM 107 mg/dL (74-106)
[2016-11-12] MEDS ORDERED: PIPERACILLIN/TAZOBACTAM 4.5 GM VIAL IVPB ONE (01:09)
[2016-11-12] MEDS ORDERED: DEXTROSE 5%-WATER 100 ML IVPB ONE (01:10)
[2016-11-12] MEDS: PIPERACILLIN/TAZOB 4.5 GM 4.5 GM in DEXTROSE 5%-WATER 100 ML IVPB SCH ×3 (01:23→17:28)
[2016-11-12] MEDS: METOPROLOL TARTRATE 5 MG/5 ML VIAL IVPB SCH ×6 (01:45→21:42)
[2016-11-12] MEDS: ALBUTEROL SO4 2.5/IPRATROPIUM 0.5 INH SOL 3 ML VIAL.NEB. NEB SCH ×4 (06:12→23:07)
[2016-11-12] MEDS: POTASSIUM CHLORIDE ORAL LIQUID 20 MEQ/15 ML PEG SCH ×2 (06:20→14:13)
[2016-11-12] MEDS: NYSTATIN 500,000 UNITS/5 ML SUSPENSION PO SCH ×3 (06:23→17:29)
[2016-11-12] MEDS ORDERED: ACETAMINOPHEN 1000 MG/100 ML VIAL (NON FORMULARY) IVPB ONE (06:34)
[2016-11-12] MEDS ORDERED: ACETAMINOPHEN 650 MG/20.3 ML ORAL SOLUTION (CUPS) PO ONE (06:40)
[2016-11-12 08:20] LABS: MCH 30.5 pg (25.7-33.7); MCHC 33.2 g/dl (32.0-36.0); MEAN CELL VOLUME 91.9 fl (80-96); MEAN PLT VOLUME 10.4 fl (7.5-11.1); PLATELET COUNT 241 K/MM3 (134-434); RDW 15.2 % (11.6-15.6); WHITE BLOOD COUNT 7.7 K/mm3 (4.0-10.0)
[2016-11-12] MEDS ORDERED: PT OWN MED DRAWER 7, Y5N ONE ×2 (09:09→17:27)
[2016-11-12] MEDS ORDERED: PANTOPRAZOLE SODIUM 40 MG VIAL ONE ×2 (09:09→20:46)
[2016-11-12 09:10] LABS: ALBUMIN 2.1 g/dl (3.4-5.0); ALK PHOS 125 U/L (45-117); ANION GAP 7 (8-16); BILIRUBIN,TOTAL 0.5 mg/dL (0.2-1.0); CALCIUM 8.5 mg/dL (8.5-10.1); CO2 35 mmol/L (21-32); CREATININE 0.2 mg/dL (0.55-1.02); GLUCOSE,RANDOM 211 mg/dL (74-106); MAGNESIUM 2.1 mg/dL (1.8-2.4); PHOSPHOROUS 2.5 mg/dL (2.5-4.9); SGOT/AST 14 U/L (15-37); SGPT/ALT 30 U/L (12-78); TOT PROT 6.1 g/dl (6.4-8.2)
[2016-11-12] MEDS ORDERED: SODIUM CHLORIDE 100 ML IVPB ONE ×2 (09:10→20:47)
[2016-11-12] MEDS: FUROSEMIDE 40 MG/4 ML INJECTABLE VIAL IVPUSH SCH (09:54)
[2016-11-12] MEDS: AMINO ACIDS/PROTEIN HYDROLYS 30 ML LIQUID.PKT PO SCH ×2 (09:54→17:29)
[2016-11-12] MEDS: ENOXAPARIN NA (PORCINE) 80 MG/0.8 ML DISP.SYRIN SQ SCH ×2 (09:55→21:31)
[2016-11-12] MEDS: PANTOPRAZOLE SODIUM 40 MG in SODIUM CHLORIDE 100 ML IVPB SCH ×2 (11:51→21:31)
--- NOTE | 2016-11-12 12:55 | PN ---
Teaching Attending Note Name of Resident: Manjula Delvalle ATTENDING PHYSICIAN STATEMENT I saw and evaluated the patient. I reviewed the resident's note and discussed the case with the resident. I agree with the resident's findings and plan as documented. SUBJECTIVE: Patient is awke, alert, comfortable. On vent via trach. OBJECTIVE: Vital Signs Period Temp Pulse Resp BP Sys/Hatch Pulse Ox Last 24 Hr 97.6 F-100.6 F 75-139 12-20 115-153/58-86 98-98 HEART: S1S2, RRR LUNGS: Few rhonchi on left ABDOMEN: Soft, non-tender, non-distended, normal BS, PEG in place EXTREMITIES: No edema Current Medications Generic Name Dose Route Start Last Admin Trade Name Freq PRN Reason Stop Dose Admin Albuterol/Ipratropium 1 amp 10/30/16 18:00 11/12/16 12:05 Duoneb - NEB 1 amp QIDR [facility] Administration Amino Acids 30 ml 11/11/16 17:30 11/12/16 09:54 Prosource No Carb Liquid Pkt PO 30 ml BID@0800,1730 [facility] Administration Enoxaparin Sodium 80 mg 11/04/16 22:00 11/12/16 09:55 Lovenox - SQ 80 mg BID [facility] Administration Furosemide 20 mg 11/06/16 10:00 11/12/16 09:54 Lasix Injection - IVPUSH 20 mg DAILY [facility] Administration Pantoprazole Sodium 40 mg/ 100 mls @ 200 mls/hr 11/06/16 23:00 11/12/16 11:51 Sodium Chloride IVPB 200 mls/hr BID [facility] Administration Piperacillin Sod/Tazobactam 100 mls @ 200 mls/hr 11/07/16 18:00 11/12/16 10:50 Sod 4.5 gm/ Dextrose IVPB 200 mls/hr Q8H-IV [facility] Administration Lidocaine HCl 1 applic 10/30/16 17:00 Xylocaine 2% Jelly TP Q4H PRN PAIN Metoprolol Tartrate 5 mg 11/07/16 11:15 11/12/16 13:28 Lopressor Injection - IVPB 5 mg Q4H-IV [facility] Administration Metoprolol Tartrate 5 mg 11/07/16 16:32 Lopressor Injection - IVPB Q4H PRN HYPERTENSION Nystatin 500,000 units 11/11/16 18:00 11/12/16 11:55 Nystatin Oral Suspension - PO 500,000 units Q6HPO [facility] Administration Potassium Chloride 20 meq 11/11/16 10:45 11/12/16 14:13 Potassium Chloride Oral Liquid PEG 20 meq TID [facility] Administration Scopolamine HBr 1 patch 11/01/16 19:15 11/10/16 19:35 Transderm-Scop - TD 1 patch Q72H [facility] Administration ASSESSMENT AND PLAN: This is a 56-year-old woman with a history of ALS, chronic hypercapnic respiratory failure, HTN, hyperthyroidism, atrial fib, hyperlipidemia who was brought in to the ER after being intubated by EMS for acute respiratory distress and subsequently had cardiac arrest in the ER. 1. s/p cardiac arrest, secondary to hypoxia vs electrolyte abnormality 2. Acute on chronic hypoxic and hypercapnic respiratory failure - Continue DuoNeb - s/p tracheostomy 10/25 3. Possible pneumonia with Pseudomonas in sputum - Continue Zosyn 4. Hyperthyroidism 5. HTN - Continue Lopressor, Lasix 6. Paroxysmal atrial fibrillation/flutter with RVR - Remains in sinus rhythm - Continue Lopressor, Lovenox 7. Hyperlipidemia 8. Depression 9. ALS 10. Ileus - Resolving 11. Hypokalemia - Continue to replete potassium 12. DVT prophylaxis - On Lovenox 13. Nutrition - s/p PEG 10/29 - Continue Osmolite, Prosource 14. Stress ulcer prophylaxis - Continue Protonix
[2016-11-12] MEDS ORDERED: FUROSEMIDE 40 MG/4 ML INJECTABLE VIAL IVPUSH ONE (15:45)
--- NOTE | 2016-11-12 15:45 | PN ---
Progress Note, Physician History of Present Illness: pulmonary awake on vent support ac mode c/o sob. - Current Medication List Current Medications: Active Medications Albuterol/Ipratropium (Duoneb -) 1 amp NEB QIDR [facility] Last Admin: 11/12/16 12:05 Dose: 1 amp Amino Acids (Prosource No Carb Liquid Pkt) 30 ml PO BID@0800,1730 [facility] Last Admin: 11/12/16 09:54 Dose: 30 ml Enoxaparin Sodium (Lovenox -) 80 mg SQ BID [facility] Last Admin: 11/12/16 09:55 Dose: 80 mg Furosemide (Lasix Injection -) 20 mg IVPUSH DAILY [facility] Last Admin: 11/12/16 09:54 Dose: 20 mg Pantoprazole Sodium 40 mg/ (Sodium Chloride) 100 mls @ 200 mls/hr IVPB BID [facility] Last Admin: 11/12/16 11:51 Dose: 200 mls/hr Piperacillin Sod/Tazobactam (Sod 4.5 gm/ Dextrose) 100 mls @ 200 mls/hr IVPB Q8H-IV [facility] Last Admin: 11/12/16 10:50 Dose: 200 mls/hr Lidocaine HCl (Xylocaine 2% Jelly) 1 applic TP Q4H PRN PRN Reason: PAIN Metoprolol Tartrate (Lopressor Injection -) 5 mg IVPB Q4H-IV [facility] Last Admin: 11/12/16 13:28 Dose: 5 mg Metoprolol Tartrate (Lopressor Injection -) 5 mg IVPB Q4H PRN PRN Reason: HYPERTENSION Nystatin (Nystatin Oral Suspension -) 500,000 units PO Q6HPO [facility] Last Admin: 11/12/16 11:55 Dose: 500,000 units Potassium Chloride (Potassium Chloride Oral Liquid) 20 meq PEG TID [facility] Last Admin: 11/12/16 14:13 Dose: 20 meq Scopolamine HBr (Transderm-Scop -) 1 patch TD Q72H [facility] Last Admin: 11/10/16 19:35 Dose: 1 patch - Objective Vital Signs: Vital Signs Temperature 98.5 F 11/12/16 13:48 Pulse Rate 130 H 11/12/16 13:48 Respiratory Rate 18 11/12/16 13:48 Blood Pressure 116/79 11/12/16 13:48 O2 Sat by Pulse Oximetry (%) 98 11/12/16 10:05 Constitutional: Yes: Well Nourished, Calm Eyes: Yes: WNL HENT: Yes: WNL Neck: Yes: Supple (trach) Cardiovascular: Yes: Regular Rate and Rhythm, S1, S2 Respiratory: Yes: Rhonchi (glory rhonchi) Gastrointestinal: Yes: Normal Bowel Sounds, Soft Extremities: Yes: WNL Edema: No Labs: CBC, BMP 11/12/16 06:00 11/12/16 06:00 INR, PTT INR 1.30 (0.82-1.09) H 10/28/16 17:45 Problem List - Problems (1) Cardiac arrest Code(s): I46.9 - CARDIAC ARREST, CAUSE UNSPECIFIED (2) Diastolic CHF Code(s): I50.30 - UNSPECIFIED DIASTOLIC (CONGESTIVE) HEART FAILURE (3) Pneumonia Code(s): J18.9 - PNEUMONIA, UNSPECIFIED ORGANISM Qualifiers: Pneumonia type: due to unspecified organism Laterality: left Lung location: upper lobe of lung Qualified Code(s): J18.1 - Lobar pneumonia, unspecified organism (4) Respiratory failure requiring intubation Code(s): J96.90 - RESPIRATORY FAILURE, UNSP, UNSP W HYPOXIA OR HYPERCAPNIA (5) Status post tracheostomy Code(s): Z93.0 - TRACHEOSTOMY STATUS (6) ALS (amyotrophic lateral sclerosis) Code(s): G12.21 - AMYOTROPHIC LATERAL SCLEROSIS (7) Hyperthyroidism Code(s): E05.90 - THYROTOXICOSIS, UNSP WITHOUT THYROTOXIC CRISIS OR STORM (8) Paroxysmal atrial fibrillation Code(s): I48.0 - PAROXYSMAL ATRIAL FIBRILLATION (9) Pleural effusion Code(s): J90 - PLEURAL EFFUSION, NOT ELSEWHERE CLASSIFIED (10) Respiratory failure Code(s): J96.90 - RESPIRATORY FAILURE, UNSP, UNSP W HYPOXIA OR HYPERCAPNIA Qualifiers: Chronicity: acute Respiratory failure complication: hypoxia and hypercapnia Qualified Code(s): J96.01 - Acute respiratory failure with hypoxia Assessment/Plan ASSESSMENT AND PLAN: S/P Trach due to failure to wean due to ALS R/O VAP Acute on Chronic Hypoxic and Hypercapneic Respiratory Failure s/p Cardiac Arrest likely from Respiratory Failure Pneumonia Sepsis Lactic Acidosis resolved Advanced ALS Paroxysmal Atrial Fibrillation with RVR HTN Hyperthyroidism - ABX per ID - AC - PEG feeds as tolerated - DVT/GI prophylaxis - Glycemic control - Lasix - chest x-ray DR BELTRAN
--- NOTE | 2016-11-12 16:44 | PN ---
Physical Exam: SUBJECTIVE: Patient seen and examined at bedside. Had low grade fever last night , was given Tylenol. Rapid HR- received lopressor PRN. Still is having diarrhea as per nurse. Pt interactive, resting comfortably. Discussed and answered questions with pt's family this afternoon, gave update on her condition. OBJECTIVE: Vital Signs Period Temp Pulse Resp BP Sys/Hatch Pulse Ox Last 24 Hr 97.6 F-100.6 F 75-134 12-20 115-153/58-84 97-98 GENERAL: The patient is interactive, in no acute distress. HEAD: Normal with no signs of trauma. EYES: PERRL, extraocular movements intact, sclera anicteric, conjunctiva clear. ENT: Ears normal, nares patent, oropharynx clear without exudates, moist mucous membranes. NECK: Trachea midline, full range of motion, supple. LUNGS: Breath sounds equal, clear to auscultation bilaterally, no wheezes, no crackles, no accessory muscle use. HEART: Regular rate and rhythm, S1, S2 without murmur, rub or gallop. ABDOMEN: Soft, nontender, nondistended, normoactive bowel sounds, no guarding, no rebound, no hepatosplenomegaly, no masses. PEG site intact. EXTREMITIES: 2+ posterior tibial pulses, warm, well-perfused, no edema. NEUROLOGICAL: difficult to assess, however pt responsive to commands Laboratory Results - last 24 hr 11/11/16 11/12/16 11/12/16 21:05 06:00 06:00 WBC 7.7 RBC 3.00 L Hgb 9.1 L Hct 27.6 L MCV 91.9 MCH 30.5 MCHC 33.2 RDW 15.2 Plt Count 241 D MPV 10.4 Sodium 145 146 H Potassium 3.1 L 3.0 L Chloride 103 104 Carbon Dioxide 36 H 35 H Anion Gap 6 L 7 L BUN 10 D 11 Creatinine 0.3 L D 0.2 L D Creat Clearance w eGFR > 60 Random Glucose 107 H 211 H D Calcium 8.1 L 8.5 Phosphorus 2.5 Magnesium 2.1 Total Bilirubin 0.5 D AST 14 L D ALT 30 Alkaline Phosphatase 125 H D Total Protein 6.1 L Albumin 2.1 L Active Medications Generic Name Dose Route Start Last Admin Trade Name Freq PRN Reason Stop Dose Admin Albuterol/Ipratropium 1 amp 10/30/16 18:00 11/12/16 12:05 Duoneb - NEB 1 amp QIDR [facility] Administration Amino Acids 30 ml 11/11/16 17:30 11/12/16 09:54 Prosource No Carb Liquid Pkt PO 30 ml BID@0800,1730 [facility] Administration Enoxaparin Sodium 80 mg 11/04/16 22:00 11/12/16 09:55 Lovenox - SQ 80 mg BID [facility] Administration Furosemide 20 mg 11/06/16 10:00 11/12/16 09:54 Lasix Injection - IVPUSH 20 mg DAILY [facility] Administration Pantoprazole Sodium 40 mg/ 100 mls @ 200 mls/hr 11/06/16 23:00 11/12/16 11:51 Sodium Chloride IVPB 200 mls/hr BID [facility] Administration Piperacillin Sod/Tazobactam 100 mls @ 200 mls/hr 11/07/16 18:00 11/12/16 10:50 Sod 4.5 gm/ Dextrose IVPB 200 mls/hr Q8H-IV [facility] Administration Lidocaine HCl 1 applic 10/30/16 17:00 Xylocaine 2% Jelly TP Q4H PRN PAIN Metoprolol Tartrate 5 mg 11/07/16 11:15 11/12/16 13:28 Lopressor Injection - IVPB 5 mg Q4H-IV [facility] Administration Metoprolol Tartrate 5 mg 11/07/16 16:32 Lopressor Injection - IVPB Q4H PRN HYPERTENSION Nystatin 500,000 units 11/11/16 18:00 11/12/16 11:55 Nystatin Oral Suspension - PO 500,000 units Q6HPO [facility] Administration Potassium Chloride 20 meq 11/11/16 10:45 11/12/16 14:13 Potassium Chloride Oral Liquid PEG 20 meq TID [facility] Administration Scopolamine HBr 1 patch 11/01/16 19:15 11/10/16 19:35 Transderm-Scop - TD 1 patch Q72H [facility] Administration ASSESSMENT/PLAN: RESPIRATORY # Acute on chronic respiratory failure secondary to ALS -Trach completed (10/24/16), s/p PEG (10/30/16) -Continue duonebs 1 amp PRN, scopolamine patch for incr. secretions -CXR (11/06/16): increased density/consolidation of L lower lobe with small L pleural effusion. Interval slight increase interstitial and airspace opacities in R lung base with questionable small R pleural effusion. No pneumothorax identified. -CXR (11/12): mild atelectatic changes, probable infiltrates in R lung base #SOB -Pt received 1 dose of lasix 20 mg IVP once (11/13) # Fever secondary to atelectasis -Continue zosyn (Today is Day5) - vanco has been d/c , Pseudomonas in sputum GI #Ileus secondary to worsening ALS or hypokalemia -NG tube has been d/c -Intermittent suction has been d/c -C.diff negative -Abdominal x-ray (11/06): dilated loops of large and small bowel again seen, not significantly changed -Feeds: pt now on prosource, and osmolite feeds - tolerating #Diarrhea -C. diff toxin negative HEME #Blood draining from PEG-resolved -Pt placed on IV protonix 40mg BID prophylactically -Will monitor -Last CBC .04/20.6 (improved) CARDIO # Paroxysmal afib -EKG 11/06/16: afib with RVR, nonspecific ST and T wave abnormality - no significant change from 10/26/16 -Continue for rate control: -Lopressor 5mg IVPB q4h IV -Lopressor injection 5mg IVPB q4 IV PRN -Pt on Lovenox 80 mg SQ BID # s/p Cardiac arrest in ED possibly secondary to hypoxia-resolved -Troponins negative x2 -Echo: regional wall motion abnormalities can't be ruled out. When compared to Echo 10/10/16: no wall motion abnormalities # Lactic acidosis secondary to cardiac arrest-resolved #subtherapeutic INR- resolved ENDOCRINE #Hyperthyroidism -Continue Methimazole 10 mg via NGT PSYCH #Major Depressive Disorder -Continue Remeron 15mg via NGT PROPHYLAXIS #DVT prophylaxis -SCD's -Lovenox 80mg SQ BID #Stress ulcer prophylaxis -Continue Zantac 150 mg NGT BID F/E/N -Fluids -On D5w currently -Nutrition Consult -Electrolytes #Hypokalemia possibly secondary to ileus --Pt now on 20 mEq KCl through PEG standing order -K+ WNL currently -Nutrition -Osmolite feeds Dispo -accepted by [facility] - they are waiting for clearance for d/c when ready Visit type - Emergency Visit Emergency Visit: No - New Patient This patient is new to me today: No - Critical Care Critical Care patient: No - Discharge Referral Referred to [facility] No
[2016-11-12] MEDS ORDERED: POTASSIUM CHLORIDE ORAL LIQUID 20 MEQ/15 ML PEG ONE (22:00)
[2016-11-13] MEDS: NYSTATIN 500,000 UNITS/5 ML SUSPENSION PO SCH ×4 (00:20→18:36)
[2016-11-13] MEDS ORDERED: DEXTROSE 5%-WATER 100 ML IVPB ONE ×2 (00:40→08:59)
[2016-11-13] MEDS ORDERED: PIPERACILLIN/TAZOBACTAM 4.5 GM VIAL IVPB ONE ×2 (00:40→08:59)
[2016-11-13] MEDS: PIPERACILLIN/TAZOB 4.5 GM 4.5 GM in DEXTROSE 5%-WATER 100 ML IVPB SCH ×2 (01:22→09:02)
[2016-11-13] MEDS: METOPROLOL TARTRATE 5 MG/5 ML VIAL IVPB SCH ×3 (01:23→09:03)
[2016-11-13] MEDS ORDERED: ACETAMINOPHEN 650 MG/20.3 ML ORAL SOLUTION (CUPS) PO ONE (01:57)
[2016-11-13] MEDS: ALBUTEROL SO4 2.5/IPRATROPIUM 0.5 INH SOL 3 ML VIAL.NEB. NEB SCH ×3 (05:18→17:37)
[2016-11-13] MEDS: POTASSIUM CHLORIDE ORAL LIQUID 20 MEQ/15 ML PEG SCH ×3 (06:18→21:21)
[2016-11-13 07:48] LABS: MCH 29.8 pg (25.7-33.7); MCHC 32.5 g/dl (32.0-36.0); MEAN CELL VOLUME 91.6 fl (80-96); MEAN PLT VOLUME 10.2 fl (7.5-11.1); PLATELET COUNT 244 K/MM3 (134-434); RDW 15.2 % (11.6-15.6); WHITE BLOOD COUNT 6.5 K/mm3 (4.0-10.0)
[2016-11-13 08:14] LABS: ANION GAP 7 (8-16); CALCIUM 7.9 mg/dL (8.5-10.1); CO2 37 mmol/L (21-32); GLUCOSE,RANDOM 105 mg/dL (74-106)
[2016-11-13 08:15] LABS: CREATININE < 0.2 mg/dL (0.55-1.02)
[2016-11-13] MEDS ORDERED: PANTOPRAZOLE SODIUM 40 MG VIAL ONE ×2 (08:59→20:49)
[2016-11-13] MEDS ORDERED: SODIUM CHLORIDE 100 ML IVPB ONE ×2 (08:59→20:49)
[2016-11-13] MEDS ORDERED: PT OWN MED DRAWER 7, Y5N ONE ×2 (08:59→18:23)
[2016-11-13] MEDS: FUROSEMIDE 40 MG/4 ML INJECTABLE VIAL IVPUSH SCH (09:02)
[2016-11-13] MEDS: ENOXAPARIN NA (PORCINE) 80 MG/0.8 ML DISP.SYRIN SQ SCH (09:02)
[2016-11-13] MEDS: AMINO ACIDS/PROTEIN HYDROLYS 30 ML LIQUID.PKT PO SCH ×2 (09:02→18:37)
[2016-11-13] MEDS: PANTOPRAZOLE SODIUM 40 MG in SODIUM CHLORIDE 100 ML IVPB SCH ×2 (11:30→21:21)
[2016-11-13 13:35] LABS: MCH 29.6 pg (25.7-33.7); MCHC 32.4 g/dl (32.0-36.0); MEAN CELL VOLUME 91.6 fl (80-96); MEAN PLT VOLUME 9.8 fl (7.5-11.1); PLATELET COUNT 263 K/MM3 (134-434); RDW 15.3 % (11.6-15.6)
--- NOTE | 2016-11-13 14:51 | PN ---
Teaching Attending Note Name of Resident: Manjula Delvalle ATTENDING PHYSICIAN STATEMENT I saw and evaluated the patient. I reviewed the resident's note and discussed the case with the resident. I agree with the resident's findings and plan as documented. SUBJECTIVE:resting comfortable. answers no to CP, SOB, or abdominal pain OBJECTIVE: Last Vital Signs Temp Pulse Resp BP Pulse Ox 98.4 F 104 H 16 140/80 97 11/13/16 10:00 11/13/16 10:00 11/13/16 10:00 11/13/16 10:00 11/13/16 10:00 General NAD CV S1 S2 tachycardic Lungs coarse breath sounds no wheezing anteriorly Abdomen soft NT/ND not tympanic normoactive BS Assessment & PLan 56-year-old woman with a history of ALS, chronic hypercapnic respiratory failure , HTN, hyperthyroidism, atrial fib, hyperlipidemia who was brought in to the ER after being intubated by EMS for acute respiratory distress and subsequently had cardiac arrest in the ER. 1. s/p cardiac arrest, secondary to hypoxia vs electrolyte abnormality 2. Acute on chronic hypoxic and hypercapnic respiratory failure- due to progression of ALS. has failed daily CPAP trials and trach on 10/25. vent management per pulmonary. chest PT, frequent suctioning 3. dysphagia- s/p PEG placement 10/29. 4. Ileus-concern for progression of ALS vs juan miguel syndrome. now resolved. tolerating PEG feeds. will switch medications to via PEG. 5. Sepsis due to worsening PNA vs UTI-Tm 100.6. CXR improving. +pseudomonas in the Sputum Cx. on Zosyn day 6. will d/w ID about abx duration. 6. Hypokalemia-Kcl 10meq x3 and 40meq po 7. Hypophosphatemia-resolved 8. HTN- controlled. re-start cardizem and metoprolol. 9. Paroxysmal atrial fibrillation/flutter with RVR-slightly tachycardic. re- starting home medications. will cont to monitor. re-start eliquis. 10. Acute anemia-Hgb drop. no signs of bleeding. will repeat Hgb to see if trending down. no indication for txn at this time. check iron studies 11. Hyperglycemia-likely steroid induced A1c 4.3. 12. Depression- Continue Remeron 13. ALS 14. DVT prophylaxis- eliquis
[2016-11-13] MEDS: KCL 10 MEQ IVPB 100 ML IVPB SCH ×2 (14:56→15:57)
[2016-11-13] MEDS: METOPROLOL TARTRATE 50 MG TABLET (FP) PO SCH ×2 (14:56→21:22)
[2016-11-13] MEDS: dilTIAZem HCL 30 MG TABLET (FP) PEG SCH ×2 (14:56→21:21)
--- NOTE | 2016-11-13 14:58 | PN ---
Progress Note, Physician History of Present Illness: pulmonary awake,congested on ac mode,mildly tachypneic - Current Medication List Current Medications: Active Medications Albuterol/Ipratropium (Duoneb -) 1 amp NEB QIDR [facility] Last Admin: 11/13/16 11:00 Dose: 1 amp Amino Acids (Prosource No Carb Liquid Pkt) 30 ml PO BID@0800,1730 [facility] Last Admin: 11/13/16 09:02 Dose: 30 ml Apixaban (Eliquis -) 5 mg PO BID [facility] Digoxin (Lanoxin -) 0.125 mg PO DAILY [facility] Diltiazem HCl (Cardizem -) 30 mg PEG TID [facility] Furosemide (Lasix Injection -) 20 mg IVPUSH DAILY [facility] Last Admin: 11/13/16 09:02 Dose: 20 mg Pantoprazole Sodium 40 mg/ (Sodium Chloride) 100 mls @ 200 mls/hr IVPB BID [facility] Last Admin: 11/13/16 11:30 Dose: 200 mls/hr Potassium Chloride (Potassium Chloride 10 Meq Premix Ivpb -) 100 mls @ 100 mls/ hr IVPB Q60M [facility] Stop: 11/13/16 16:14 Lidocaine HCl (Xylocaine 2% Jelly) 1 applic TP Q4H PRN PRN Reason: PAIN Metoprolol Tartrate (Lopressor Injection -) 5 mg IVPB Q4H PRN PRN Reason: HYPERTENSION Metoprolol Tartrate (Lopressor -) 50 mg PO TID [facility] Nystatin (Nystatin Oral Suspension -) 500,000 units PO Q6HPO [facility] Last Admin: 11/13/16 12:27 Dose: 500,000 units Potassium Chloride (Potassium Chloride Oral Liquid) 20 meq PEG TID [facility] Last Admin: 11/13/16 06:18 Dose: 20 meq Scopolamine HBr (Transderm-Scop -) 1 patch TD Q72H [facility] Last Admin: 11/10/16 19:35 Dose: 1 patch - Objective Vital Signs: Vital Signs Temperature 98.4 F 11/13/16 10:00 Pulse Rate 104 H 11/13/16 10:00 Respiratory Rate 16 11/13/16 10:00 Blood Pressure 140/80 11/13/16 10:00 O2 Sat by Pulse Oximetry (%) 97 11/13/16 10:00 Constitutional: Yes: Well Nourished, Mild Distress Eyes: Yes: WNL HENT: Yes: WNL Neck: Yes: Supple (trach) Cardiovascular: Yes: Pulse Irregular, S1, S2 Respiratory: Yes: Rhonchi (glory rhonchi) Gastrointestinal: Yes: Normal Bowel Sounds, Soft Extremities: Yes: WNL Edema: No Labs: CBC, BMP 11/13/16 13:25 11/13/16 06:00 INR, PTT INR 1.30 (0.82-1.09) H 10/28/16 17:45 Problem List - Problems (1) Cardiac arrest Code(s): I46.9 - CARDIAC ARREST, CAUSE UNSPECIFIED (2) Diastolic CHF Code(s): I50.30 - UNSPECIFIED DIASTOLIC (CONGESTIVE) HEART FAILURE (3) Pneumonia Code(s): J18.9 - PNEUMONIA, UNSPECIFIED ORGANISM Qualifiers: Pneumonia type: due to unspecified organism Laterality: left Lung location: upper lobe of lung Qualified Code(s): J18.1 - Lobar pneumonia, unspecified organism (4) Respiratory failure requiring intubation Code(s): J96.90 - RESPIRATORY FAILURE, UNSP, UNSP W HYPOXIA OR HYPERCAPNIA (5) Status post tracheostomy Code(s): Z93.0 - TRACHEOSTOMY STATUS (6) ALS (amyotrophic lateral sclerosis) Code(s): G12.21 - AMYOTROPHIC LATERAL SCLEROSIS (7) Hyperthyroidism Code(s): E05.90 - THYROTOXICOSIS, UNSP WITHOUT THYROTOXIC CRISIS OR STORM (8) Paroxysmal atrial fibrillation Code(s): I48.0 - PAROXYSMAL ATRIAL FIBRILLATION (9) Pleural effusion Code(s): J90 - PLEURAL EFFUSION, NOT ELSEWHERE CLASSIFIED (10) Respiratory failure Code(s): J96.90 - RESPIRATORY FAILURE, UNSP, UNSP W HYPOXIA OR HYPERCAPNIA Qualifiers: Chronicity: acute Respiratory failure complication: hypoxia and hypercapnia Qualified Code(s): J96.01 - Acute respiratory failure with hypoxia Assessment/Plan ASSESSMENT AND PLAN: S/P Trach due to failure to wean due to ALS R/O VAP Acute on Chronic Hypoxic and Hypercapneic Respiratory Failure s/p Cardiac Arrest likely from Respiratory Failure Pneumonia Sepsis Lactic Acidosis resolved Advanced ALS Paroxysmal Atrial Fibrillation with RVR HTN Hyperthyroidism - ABX per ID - AC - PEG feeds as tolerated - DVT/GI prophylaxis - Glycemic control - Lasix - inhaled bronchodilators - nevilleete mian BELTRAN
--- NOTE | 2016-11-13 16:02 | PN ---
Progress Note, Physician History of Present Illness: Awake No acute distress Temps down Afebrile WBC WNL - Current Medication List Current Medications: Active Medications Albuterol/Ipratropium (Duoneb -) 1 amp NEB QIDR [facility] Last Admin: 11/13/16 11:00 Dose: 1 amp Amino Acids (Prosource No Carb Liquid Pkt) 30 ml PO BID@0800,1730 [facility] Last Admin: 11/13/16 09:02 Dose: 30 ml Apixaban (Eliquis -) 5 mg PO BID [facility] Digoxin (Lanoxin -) 0.125 mg PO DAILY [facility] Diltiazem HCl (Cardizem -) 30 mg PEG TID [facility] Last Admin: 11/13/16 14:56 Dose: 30 mg Furosemide (Lasix Injection -) 20 mg IVPUSH DAILY [facility] Last Admin: 11/13/16 09:02 Dose: 20 mg Pantoprazole Sodium 40 mg/ (Sodium Chloride) 100 mls @ 200 mls/hr IVPB BID [facility] Last Admin: 11/13/16 11:30 Dose: 200 mls/hr Potassium Chloride (Potassium Chloride 10 Meq Premix Ivpb -) 100 mls @ 100 mls/ hr IVPB Q60M [facility] Stop: 11/13/16 16:14 Last Admin: 11/13/16 14:56 Dose: 100 mls/hr Lidocaine HCl (Xylocaine 2% Jelly) 1 applic TP Q4H PRN PRN Reason: PAIN Metoprolol Tartrate (Lopressor Injection -) 5 mg IVPB Q4H PRN PRN Reason: HYPERTENSION Metoprolol Tartrate (Lopressor -) 50 mg PO TID [facility] Last Admin: 11/13/16 14:56 Dose: 50 mg Nystatin (Nystatin Oral Suspension -) 500,000 units PO Q6HPO [facility] Last Admin: 11/13/16 12:27 Dose: 500,000 units Potassium Chloride (Potassium Chloride Oral Liquid) 20 meq PEG TID [facility] Last Admin: 11/13/16 14:55 Dose: 20 meq Scopolamine HBr (Transderm-Scop -) 1 patch TD Q72H [facility] Last Admin: 11/10/16 19:35 Dose: 1 patch - Objective Vital Signs: Vital Signs Temperature 99.4 F 11/13/16 14:20 Pulse Rate 128 H 11/13/16 14:20 Respiratory Rate 16 11/13/16 14:20 Blood Pressure 135/85 11/13/16 14:20 O2 Sat by Pulse Oximetry (%) 97 11/13/16 10:00 Constitutional: Yes: No Distress Eyes: Yes: Conjunctiva Clear Cardiovascular: Yes: Regular Rate and Rhythm, S1, S2 Respiratory: Yes: Mechanically Ventilated Gastrointestinal: Yes: Normal Bowel Sounds, Soft. No: Tenderness Labs: CBC, BMP 11/13/16 13:25 11/13/16 06:00 INR, PTT INR 1.30 (0.82-1.09) H 10/28/16 17:45 Assessment/Plan Fever/ leukocytosis improved Respiratory failure Pneumonia/ atelectasis UTI ALS S/P cardiopulmonary arrest Substitute levaquin 500mg GT qd x 3d
[2016-11-13] MEDS ORDERED: LEVOFLOXACIN 500 MG TABLET (FP) GT SCH ×2 (16:15→18:10)
--- NOTE | 2016-11-13 16:32 | PN ---
Physical Exam: SUBJECTIVE: Patient seen and examined at bedside. Pt interactive. As per nursing staff, once pt is moved, she becomes SOB. OBJECTIVE: Vital Signs Period Temp Pulse Resp BP Sys/Hatch Pulse Ox Last 24 Hr 98.3 F-99.4 F 101-128 12-16 134-159/71-88 97-98 GENERAL: The patient is interactive, in no acute distress. HEAD: Normal with no signs of trauma. EYES: PERRL, extraocular movements intact, sclera anicteric, conjunctiva clear. No ptosis. ENT: Ears normal, nares patent, oropharynx clear without exudates, moist mucous membranes. NECK: Trachea midline, full range of motion, supple. LUNGS: Breath sounds equal, clear to auscultation bilaterally, no wheezes, no crackles, no accessory muscle use. HEART: Regular rate and rhythm, S1, S2 without murmur, rub or gallop. ABDOMEN: Soft, nontender, nondistended, normoactive bowel sounds, no guarding, no rebound, no hepatosplenomegaly, no masses. PEG site intact. EXTREMITIES: 2+ posterior tibial pulses, warm, well-perfused, no edema. NEUROLOGICAL: difficult to assess, but pt responsive to commands- better strength than yesterday. Laboratory Results - last 24 hr 11/13/16 11/13/16 11/13/16 06:00 06:00 13:25 WBC 6.5 6.0 RBC 2.52 L 2.84 L Hgb 7.5 L D 8.4 L D Hct 23.1 L D 26.0 L MCV 91.6 91.6 MCH 29.8 29.6 MCHC 32.5 32.4 RDW 15.2 15.3 Plt Count 244 263 MPV 10.2 9.8 Sodium 148 H Potassium 3.0 L Chloride 104 Carbon Dioxide 37 H Anion Gap 7 L BUN 14 D Creatinine < 0.2 L Random Glucose 105 D Calcium 7.9 L Active Medications Generic Name Dose Route Start Last Admin Trade Name Freq PRN Reason Stop Dose Admin Albuterol/Ipratropium 1 amp 10/30/16 18:00 11/13/16 11:00 Duoneb - NEB 1 amp QIDR SILVIA Administration Amino Acids 30 ml 11/11/16 17:30 11/13/16 09:02 Prosource No Carb Liquid Pkt PO 30 ml BID@0800,1730 SILVIA Administration Apixaban 5 mg 11/13/16 22:00 Eliquis - PO BID SILVIA Digoxin 0.125 mg 11/14/16 10:00 Lanoxin - PO DAILY [facility] Diltiazem HCl 30 mg 11/13/16 14:00 11/13/16 14:56 Cardizem - PEG 30 mg TID SILVIA Administration Furosemide 20 mg 11/06/16 10:00 11/13/16 09:02 Lasix Injection - IVPUSH 20 mg DAILY [facility]IA Administration Pantoprazole Sodium 40 mg/ 100 mls @ 200 mls/hr 11/06/16 23:00 11/13/16 11:30 Sodium Chloride IVPB 200 mls/hr BID SILVIA Administration Levofloxacin 500 mg 11/13/16 16:15 Levaquin - GT DAILY [facility] Lidocaine HCl 1 applic 10/30/16 17:00 Xylocaine 2% Jelly TP Q4H PRN PAIN Metoprolol Tartrate 5 mg 11/07/16 16:32 Lopressor Injection - IVPB Q4H PRN HYPERTENSION Metoprolol Tartrate 50 mg 11/13/16 14:00 11/13/16 14:56 Lopressor - PO 50 mg TID [facility] Administration Nystatin 500,000 units 11/11/16 18:00 11/13/16 12:27 Nystatin Oral Suspension - PO 500,000 units Q6HPO [facility] Administration Potassium Chloride 20 meq 11/11/16 10:45 11/13/16 14:55 Potassium Chloride Oral Liquid PEG 20 meq TID SILVIA Administration Scopolamine HBr 1 patch 11/01/16 19:15 11/10/16 19:35 Transderm-Scop - TD 1 patch Q72H SILVIA Administration ASSESSMENT/PLAN: RESPIRATORY # Acute on chronic respiratory failure secondary to ALS -Trach completed (10/24/16), s/p PEG (10/30/16) -Continue duonebs 1 amp PRN, scopolamine patch for incr. secretions -CXR (11/06/16): increased density/consolidation of L lower lobe with small L pleural effusion. Interval slight increase interstitial and airspace opacities in R lung base with questionable small R pleural effusion. No pneumothorax identified. -CXR (11/12): mild atelectatic changes, probable infiltrates in R lung base #SOB -Pt received 1 dose of lasix 20 mg IVP once (11/12) # Fever secondary to atelectasis -Zosyn and vanco have been d/c , Pseudomonas in sputum - As per ID: pt started on levaquin 500mg GT qd x 3d (Today is Day1) GI #Ileus secondary to worsening ALS or hypokalemia -NG tube has been d/c -Intermittent suction has been d/c -C.diff negative -Abdominal x-ray (11/06): dilated loops of large and small bowel again seen, not significantly changed -Feeds: pt now on prosource, and osmolite feeds - tolerating #Diarrhea -C. diff toxin negative HEME #Blood draining from PEG-resolved -Pt placed on IV protonix 40mg BID prophylactically -Will monitor -Last CBC CARDIO # Paroxysmal afib -EKG 11/06/16: afib with RVR, nonspecific ST and T wave abnormality - no significant change from 10/26/16 -Pt changed back to PO medications for rate control: -Cardiazem 30 mg NGT TID -Digoxin 0.125 mg PO daily -Lopressor 50 mg PO TID -Eliquis 5 mg PO BID -Lopressor injection 5mg IVP q4PRN when needed # s/p Cardiac arrest in ED possibly secondary to hypoxia-resolved -Troponins negative x2 -Echo: regional wall motion abnormalities can't be ruled out. When compared to Echo 10/10/16: no wall motion abnormalities # Lactic acidosis secondary to cardiac arrest-resolved #subtherapeutic INR- resolved ENDOCRINE #Hyperthyroidism -Continue Methimazole 10 mg via NGT PSYCH #Major Depressive Disorder -Continue Remeron 15mg via NGT PROPHYLAXIS #DVT prophylaxis -SCD's -Lovenox 80mg SQ BID #Stress ulcer prophylaxis -Continue Zantac 150 mg NGT BID F/E/N -Fluids -On D5w currently -Nutrition Consult -Electrolytes #Hypokalemia possibly secondary to ileus --Pt now on 20 mEq KCl through PEG standing order -2 bags KCl 10 mEq given this afternoon, will f/u level tomorrow -Nutrition -Osmolite feeds [facility] are waiting for clearance for d/c when read -Will speak to correctional counselor/case manager, waiting for pt to be afebrile >24 hrs before d/c Visit type - Emergency Visit Emergency Visit: No - New Patient This patient is new to me today: No - Critical Care Critical Care patient: No
[2016-11-13] MEDS ORDERED: LEVOFLOXACIN 500 MG TABLET (FP) GT ONE (17:30)
[2016-11-13] MEDS: LEVOFLOXACIN 500 MG TABLET (FP) GT SCH (18:36)
[2016-11-13] MEDS: SCOPOLAMINE HYDROBROMIDE 1 PATCH PATCH.TD72 TD SCH (18:37)
[2016-11-13] MEDS: APIXABAN 5 MG TABLET PO SCH (21:22)
[2016-11-14] MEDS: ALBUTEROL SO4 2.5/IPRATROPIUM 0.5 INH SOL 3 ML VIAL.NEB. NEB SCH ×4 (00:13→18:03)
[2016-11-14] MEDS: NYSTATIN 500,000 UNITS/5 ML SUSPENSION PO SCH ×3 (00:32→18:56)
[2016-11-14 07:41] LABS: MCH 29.6 pg (25.7-33.7); MCHC 32.5 g/dl (32.0-36.0); MEAN CELL VOLUME 91.1 fl (80-96); PLATELET COUNT 287 K/MM3 (134-434); RDW 15.4 % (11.6-15.6); WHITE BLOOD COUNT 6.1 K/mm3 (4.0-10.0)
[2016-11-14 08:16] LABS: ANION GAP 6 (8-16); CALCIUM 8.5 mg/dL (8.5-10.1); CO2 38 mmol/L (21-32); CREATININE < 0.2 mg/dL (0.55-1.02); FERRITIN 284.852 ng/ml (6.9-282.5); GLUCOSE,RANDOM 109 mg/dL (74-106); MAGNESIUM 1.8 mg/dL (1.8-2.4)
[2016-11-14] MEDS ORDERED: SODIUM CHLORIDE 100 ML IVPB ONE (10:24)
[2016-11-14] MEDS ORDERED: PANTOPRAZOLE SODIUM 40 MG VIAL ONE (10:24)
[2016-11-14] MEDS ORDERED: PT OWN MED DRAWER 7, Y5N ONE ×2 (10:43→19:11)
[2016-11-14] MEDS: AMINO ACIDS/PROTEIN HYDROLYS 30 ML LIQUID.PKT PO SCH ×2 (10:52→18:56)
[2016-11-14] MEDS: DIGOXIN 0.125 MG TABLET (FP) PO SCH (10:52)
[2016-11-14] MEDS: APIXABAN 5 MG TABLET PO SCH ×2 (10:52→21:46)
[2016-11-14] MEDS: FUROSEMIDE 40 MG/4 ML INJECTABLE VIAL IVPUSH SCH (10:53)
[2016-11-14] MEDS: PANTOPRAZOLE SODIUM 40 MG in SODIUM CHLORIDE 100 ML IVPB SCH (10:53)
--- NOTE | 2016-11-14 12:08 | PN ---
Teaching Attending Note Name of Resident: Manjula Delvalle ATTENDING PHYSICIAN STATEMENT I saw and evaluated the patient. I reviewed the resident's note and discussed the case with the resident. I agree with the resident's findings and plan as documented. SUBJECTIVE:resting comfortable, shakes her head no to CP, SOB or abdominal pain OBJECTIVE: Last Vital Signs Temp Pulse Resp BP Pulse Ox 98 F 100 H 15 117/74 99 11/14/16 10:22 11/14/16 10:52 11/14/16 10:37 11/14/16 10:37 11/14/16 10:21 General NAD CV S1 S2 tachycardic Lungs coarse breath sounds no wheezing anteriorly Abdomen soft NT/ND not tympanic normoactive BS Assessment & PLan 56-year-old woman with a history of ALS, chronic hypercapnic respiratory failure , HTN, hyperthyroidism, atrial fib, hyperlipidemia who was brought in to the ER after being intubated by EMS for acute respiratory distress and subsequently had cardiac arrest in the ER. 1. s/p cardiac arrest, secondary to hypoxia vs electrolyte abnormality 2. Acute on chronic hypoxic and hypercapnic respiratory failure- due to progression of ALS. has failed daily CPAP trials and trach on 10/25. vent management per pulmonary. chest PT, frequent suctioning, scopolamine patch. switch lasix iv for pleural effusion to po. 3. dysphagia- s/p PEG placement 10/29. 4. Ileus-concern for progression of ALS. now resolved. tolerating PEG feeds 5. Sepsis due to worsening PNA vs UTI- +pseudomonas in the Sputum Cx. afebrile 24H. now on levaquin day 2, will complete tomorrow. 6. Hypokalemia-resolved. will switch standing potassium supplementation to once a day medication. cont to monitor 7. Hypophosphatemia-resolved 8. HTN- controlled. on po medications via tube 9. Paroxysmal atrial fibrillation/flutter with RVR-slightly tachycardic. will increase cardizem to 60mg. monitor HR. on eliquis. 10. Acute anemia-Hgb drop. no signs of bleeding. repeat in evening improved and now drop again this AM. iron studies pending. 11. Hyperglycemia-likely steroid induced A1c 4.3. 12. Depression- Continue Remeron 13. ALS 14. DVT prophylaxis- eliquis 15. d/w son present at bedside that pt will likely be medically optimized for discharge tomorrow. He expressed desire for mother to come home on vent instead of going to SNF. Explained the mental,physical and financial constraints that will likely place on the family as his mother will require around the clock care and attendance as she is unable to perform any function on her own. he replied that he will discuss with his family about bringing her home and will made decision within a week. Explained that this is a big decision and that they should take their time deciding this and that she may benefit from discharge to SNF and then can always make preparations to go home from facility. D/w CM about concerns about pt going home. They will d/w family about plan
--- NOTE | 2016-11-14 12:39 | PN ---
Progress Note (short form) - Note Progress Note: PULMONARY FAMILY PRESENT REMAINS ON MVV/A/C SET AT 10/ TRACH IN PLACE B/L COARSE RHONCHI S1S2 BS+ PEG B/L SCD'S LABS/MEDS/NOTES/IMAGING/MICRO REVIEWED Acute on Chronic Hypoxic and Hypercapneic Respiratory Failure s/p Tracheostomy s/p Cardiac Arrest likely from Respiratory Failure Pneumonia / VAP Sepsis Lactic Acidosis resolved Advanced ALS Paroxysmal Atrial Fibrillation with RVR HTN Hyperthyroidism Atelectasis - chest PT, pulmonary toilet - rate control with metoprolol - continue anticoagulation - replete lytes - spontaneous breathing trials as tolerated - keep hgb greater than 8gms - Jinny Vasquez to shey ZAMORA MD
--- NOTE | 2016-11-14 12:40 | CONSULT ---
Admitting History and Physical - Primary Care Physician PCP: Airam Hui - Admission History of Present Illness: 56-year-old woman with a history of ALS, chronic hypercapnic respiratory failure , HTN, hyperthyroidism, atrial fib, hyperlipidemia who was brought in to the ER after being intubated by EMS for acute respiratory distress and subsequently had cardiac arrest in the ER. s/p cardiac arrest, secondary to hypoxia vs electrolyte abnormality Now with PEG. 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) Cardiovascular: Yes: HTN, Hyperlipdemia Pulmonary: Yes: Pneumonia Musculoskeletal: Yes: Other (ALS) Endocrine: Yes: Hyperthyroidism - Smoking History Smoking history: Unknown if ever smoked Have you smoked in the past 12 months: No Aproximately how many cigarettes per day: 0 - Alcohol/Substance Use Hx Alcohol Use: No History of Substance Use: reports: None - Social History ADL: Family Assistance History of Recent Travel: No History - Admission Reason For Visit: RESPIRATORY ARREST - General Mental Status: Awake and Alert Attention: Intact Head/Neck Control: Impaired - Hearing Hearing: Normal Speech Evaluation - Communication Primary Language: KENYAN Oral Expression Ability: Yes: Non-Verbal, Non-Vocal - Speech Production Dysarthria: Yes: Mixed (likely) Able to Make Needs Known: Yes: Severely Impaired Intelligibility: Yes: Severely Impaired - Speech Characteristics Articulation: Yes: Imprecise - Swallow Evaluation/Bedside Assessment Current Nutritional Intake: NPO, G Tube Oral Secretions: Yes: Copious Secretions Tracheostomy Present: Yes Patient on Ventilator: Yes Dentition: Yes: Missing Teeth Facial Symmetry at Rest: Symmetrical Jaw Position: Open at Rest Against Resistance Opening: Weak Against Resistance Closing: Weak Pucker Lips: Reduced ROM, Weak Smile: Reduced ROM, Weak Lingual Movement: Symmetric, Reduced Tip Elevation Lingual Speed of Movement: Reduced Lingual Movement Strgth Against Opposition: Reduced Lingual Movement Characteristics: Fasciculations Velopharyngeal Movement: Reduced Elevation Laryngeal Elevation: Impaired Laryngeal Movement: Able to Palpate, Reduced Excursion, Labored,delay initiation , Reduced Velocity Recommendations - Speech Evaluation, Impression/Plan Impression: Pt evaluated after pt care, at which time she was reclining. Frquent coughing with repeated suctioning performed by RN/ RT to clear secretions. Responds with y/n headshake appropriately and attempts to mouth words. Swallow much weaker than recent mbs. Fasciculations. - Disposition Discharge to: [facility] Facility (pending) - Dysphagia Impressions/Plan Swallowing Skills: Impaired Dysphagia Impressions: Moderate Impairment (suspected. Recent mbs (-) aspiration , but significant change in status since.) *Silent aspiration: cannot be R/O at bedside (suspected on secretions) Recommendations: [place] Valve (Poor airway protection. Deflating cuff for pmv not indicated at this time.), Other (ETRAN board for communication, likely to be obtained at [facility].) - Recommendations Diet Consistency: NPO Liquids: NPO
[2016-11-14 14:30] LABS: ANION GAP 4 (8-16); CALCIUM 8.5 mg/dL (8.5-10.1); CO2 39 mmol/L (21-32); CREATININE < 0.2 mg/dL (0.55-1.02); GLUCOSE,RANDOM 123 mg/dL (74-106)
[2016-11-14] MEDS: METOPROLOL TARTRATE 50 MG TABLET (FP) PO SCH ×2 (14:51→21:46)
[2016-11-14] MEDS: dilTIAZem HCL 60 MG TABLET (FP) PEG SCH ×2 (14:51→21:46)
[2016-11-14] MEDS ORDERED: FUROSEMIDE 20 MG TABLET (FP) PEG SCH (18:00)
--- NOTE | 2016-11-14 19:39 | PN ---
Physical Exam: SUBJECTIVE: Patient seen and examined at bedside. Pt interactive today. Spoke to son on phone today about his mother's disposition. He stated that he wanted her to stay at [facility] for as long as possible, in order to stabilize her condition. Explained to him that as of now pt is most stable she has been during this stay. Told him to speak to family members and reassess, will discuss more with him during rounds tomorrow. OBJECTIVE: Vital Signs Period Temp Pulse Resp BP Sys/Hatch Pulse Ox Last 24 Hr 98 F-98.5 F 78-108 12-18 108-137/49-85 99-100 GENERAL: The patient is interactive, in no acute distress. HEAD: Normal with no signs of trauma. EYES: PERRL, extraocular movements intact, sclera anicteric, conjunctiva clear. No ptosis. NECK: Trachea midline, full range of motion, supple. LUNGS: mild rhonchi appreciated b/l HEART: Regular rate and rhythm, S1, S2 without murmur, rub or gallop. ABDOMEN: Soft, nontender, nondistended, normoactive bowel sounds, no guarding, no rebound, no hepatosplenomegaly, no masses. EXTREMITIES: 2+ posterior tibial pulses, warm, well-perfused, no edema. NEUROLOGICAL: difficult to assess, but pt able to respond to commands Laboratory Results - last 24 hr 11/14/16 11/14/16 11/14/16 06:38 06:38 13:45 WBC 6.1 RBC 2.57 L Hgb 7.6 L Hct 23.4 L MCV 91.1 MCH 29.6 MCHC 32.5 RDW 15.4 Plt Count 287 MPV 10.0 Sodium 146 H 144 Potassium 3.6 3.3 L Chloride 102 101 Carbon Dioxide 38 H 39 H Anion Gap 6 L 4 L BUN 16 15 Creatinine < 0.2 L < 0.2 L Random Glucose 109 H 123 H Calcium 8.5 8.5 Magnesium 1.8 Ferritin 284.852 H Active Medications Generic Name Dose Route Start Last Admin Trade Name Freq PRN Reason Stop Dose Admin Albuterol/Ipratropium 1 amp 10/30/16 18:00 11/14/16 18:03 Duoneb - NEB 1 amp QIDR SILVIA Administration Amino Acids 30 ml 11/11/16 17:30 11/14/16 18:56 Prosource No Carb Liquid Pkt PO 30 ml BID@0800,1730 SILVIA Administration Apixaban 5 mg 11/13/16 22:00 11/14/16 10:52 Eliquis - PO 5 mg BID SILVIA Administration Digoxin 0.125 mg 11/14/16 10:00 11/14/16 10:52 Lanoxin - PO 0.125 mg DAILY [facility] Administration Diltiazem HCl 60 mg 11/14/16 14:00 11/14/16 14:51 Cardizem - PEG Not Given TID SILVIA Furosemide 20 mg 11/15/16 10:00 Lasix - PEG DAILY [facility] Levofloxacin 500 mg 11/13/16 18:15 11/13/16 18:36 Levaquin - GT 500 mg DAILY@0600 SILVIA Administration Lidocaine HCl 1 applic 10/30/16 17:00 Xylocaine 2% Jelly TP Q4H PRN PAIN Metoprolol Tartrate 5 mg 11/07/16 16:32 Lopressor Injection - IVPB Q4H PRN HYPERTENSION Metoprolol Tartrate 50 mg 11/13/16 14:00 11/14/16 14:51 Lopressor - PO Not Given TID SIL[facility]IA Nystatin 500,000 units 11/11/16 18:00 11/14/16 18:56 Nystatin Oral Suspension - PO 500,000 units Q6HPO SIL[facility]IA Administration Potassium Chloride 20 meq 11/15/16 10:00 Potassium Chloride Oral Liquid PEG DAILY [facility] Scopolamine HBr 1 patch 11/01/16 19:15 11/13/16 18:37 Transderm-Scop - TD 1 patch Q72H SILVIA Administration ASSESSMENT/PLAN: RESPIRATORY # Acute on chronic respiratory failure secondary to ALS -Trach completed (10/24/16), s/p PEG (10/30/16) -Continue duonebs 1 amp PRN, scopolamine patch for incr. secretions -CXR (11/06/16): increased density/consolidation of L lower lobe with small L pleural effusion. Interval slight increase interstitial and airspace opacities in R lung base with questionable small R pleural effusion. No pneumothorax identified. -CXR (11/12): mild atelectatic changes, probable infiltrates in R lung base #SOB -Pt received 1 dose of lasix 20 mg IVP once (11/12) # Fever secondary to atelectasis -Zosyn and vanco have been d/c , Pseudomonas in sputum - As per ID: pt started on levaquin 500mg GT qd x 3d (Today is Day2) GI #Ileus secondary to worsening ALS or hypokalemia -NG tube has been d/c -Intermittent suction has been d/c -C.diff negative -Abdominal x-ray (11/06): dilated loops of large and small bowel again seen, not significantly changed -Feeds: pt now on prosource, and osmolite feeds - tolerating #Diarrhea -C. diff toxin negative HEME #Blood draining from PEG-resolved -Pt placed on IV protonix 40mg BID prophylactically -Will monitor -Last CBC .6.4 -F/u CBC tomorrow CARDIO # Paroxysmal afib -EKG 11/06/16: afib with RVR, nonspecific ST and T wave abnormality - no significant change from 10/26/16 -Pt changed back to PO medications for rate control: -Cardiazem 30 mg NGT TID -Digoxin 0.125 mg PO daily -Lopressor 50 mg PO TID -Eliquis 5 mg PO BID -Lopressor injection 5mg IVP q4PRN when needed # s/p Cardiac arrest in ED possibly secondary to hypoxia-resolved -Troponins negative x2 -Echo: regional wall motion abnormalities can't be ruled out. When compared to Echo 10/10/16: no wall motion abnormalities # Lactic acidosis secondary to cardiac arrest-resolved #subtherapeutic INR- resolved ENDOCRINE #Hyperthyroidism -Continue Methimazole 10 mg via NGT PSYCH #Major Depressive Disorder -Continue Remeron 15mg via NGT PROPHYLAXIS #DVT prophylaxis -SCD's -Lovenox 80mg SQ BID #Stress ulcer prophylaxis -Continue Zantac 150 mg NGT BID F/E/N -Fluids -On D5w currently -Electrolytes #Hypokalemia possibly secondary to ileus --Pt now on 20 mEq KCl through PEG standing order -K+ 3.6 WNL -Nutrition -Osmolite feeds Dispo -waiting for pt family decision on disposition -[facility] is ready and has bed -Family to discuss with team tomorrow Visit type - Emergency Visit Emergency Visit: No - New Patient This patient is new to me today: No - Critical Care Critical Care patient: No
[2016-11-14] MEDS ORDERED: POTASSIUM CHLORIDE ORAL LIQUID 20 MEQ/15 ML PEG SCH (22:00)
[2016-11-15] MEDS: ALBUTEROL SO4 2.5/IPRATROPIUM 0.5 INH SOL 3 ML VIAL.NEB. NEB SCH ×3 (00:18→12:00)
[2016-11-15] MEDS: LEVOFLOXACIN 500 MG TABLET (FP) GT SCH ×2 (00:59→05:38)
[2016-11-15] MEDS: NYSTATIN 500,000 UNITS/5 ML SUSPENSION PO SCH ×4 (01:00→12:21)
[2016-11-15] MEDS: METOPROLOL TARTRATE 50 MG TABLET (FP) PO SCH ×3 (01:00→15:10)
[2016-11-15] MEDS: dilTIAZem HCL 30 MG TABLET (FP) PEG SCH (01:01)
[2016-11-15] MEDS: POTASSIUM CHLORIDE ORAL LIQUID 20 MEQ/15 ML PEG SCH (01:01)
[2016-11-15] MEDS: dilTIAZem HCL 60 MG TABLET (FP) PEG SCH ×2 (05:38→15:10)
[2016-11-15 06:18] LABS: SERUM IRON 60 ug/dL (27-159); TOTAL IRON BINDING CAPACITY 121 ug/dL (250-450); UIBC 61 ug/dL (131-425)
[2016-11-15 07:47] LABS: MCH 29.9 pg (25.7-33.7); MCHC 33.1 g/dl (32.0-36.0); MEAN CELL VOLUME 90.4 fl (80-96); PLATELET COUNT 336 K/MM3 (134-434); RDW 15.5 % (11.6-15.6); WHITE BLOOD COUNT 5.9 K/mm3 (4.0-10.0)
[2016-11-15 08:20] LABS: ANION GAP 7 (8-16); CALCIUM 8.3 mg/dL (8.5-10.1); CO2 36 mmol/L (21-32); CREATININE 0.2 mg/dL (0.55-1.02); GLUCOSE,RANDOM 149 mg/dL (74-106); MAGNESIUM 1.9 mg/dL (1.8-2.4)
[2016-11-15] MEDS ORDERED: PT OWN MED DRAWER 7, Y5N ONE (09:18)
[2016-11-15] MEDS ORDERED: FUROSEMIDE 20 MG TABLET (FP) PEG SCH ×2 (10:00)
[2016-11-15] MEDS ORDERED: POTASSIUM CHLORIDE ORAL LIQUID 20 MEQ/15 ML PEG SCH ×2 (10:00→14:00)
[2016-11-15] MEDS: AMINO ACIDS/PROTEIN HYDROLYS 30 ML LIQUID.PKT PO SCH (10:05)
[2016-11-15] MEDS: APIXABAN 5 MG TABLET PO SCH (10:05)
[2016-11-15] MEDS: DIGOXIN 0.125 MG TABLET (FP) PO SCH (10:05)
[2016-11-15] MEDS: KCL 10 MEQ IVPB 100 ML IVPB SCH ×2 (10:05→12:20)
--- NOTE | 2016-11-15 12:21 | PN ---
Progress Note, WAGON PERSON - Note Progress Note: Pt appears comfortable. No coughing on secretions.Maintain head flexion with pillow supporting her head to allow pt to swallow her secretions. Pending d/c. Suggest speech pathology follow up regarding eye gaze communication device, atleast with Etran board to maximize communication status. Selected Entries 11/14/16 11/14/16 11/14/16 06:00 10:22 14:41 Supper Temperature 98 F 98 F 98.5 F 11/14/16 11/15/16 11/15/16 18:00 00:49 05:36 Supper NPO Temperature 97.7 F 97.7 F 97.9 F Laboratory Tests 11/15/16 07:30 WBC 5.9
--- NOTE | 2016-11-15 12:28 | PN ---
Progress Note, Physician History of Present Illness: pulmonary awake,on vent support,nad,less congested - Current Medication List Current Medications: Active Medications Albuterol/Ipratropium (Duoneb -) 1 amp NEB QIDR [facility] Last Admin: 11/15/16 07:16 Dose: 1 amp Amino Acids (Prosource No Carb Liquid Pkt) 30 ml PO BID@0800,1730 [facility] Last Admin: 11/15/16 10:05 Dose: 30 ml Apixaban (Eliquis -) 5 mg PO BID [facility] Last Admin: 11/15/16 10:05 Dose: 5 mg Digoxin (Lanoxin -) 0.125 mg PO DAILY [facility] Last Admin: 11/15/16 10:05 Dose: 0.125 mg Diltiazem HCl (Cardizem -) 60 mg PEG TID [facility] Last Admin: 11/15/16 05:38 Dose: 60 mg Furosemide (Lasix -) 20 mg PEG DAILY [facility] Last Admin: 11/15/16 10:06 Dose: 20 mg Levofloxacin (Levaquin -) 500 mg GT DAILY@0600 [facility] Last Admin: 11/15/16 05:38 Dose: 500 mg Lidocaine HCl (Xylocaine 2% Jelly) 1 applic TP Q4H PRN PRN Reason: PAIN Metoprolol Tartrate (Lopressor Injection -) 5 mg IVPB Q4H PRN PRN Reason: HYPERTENSION Metoprolol Tartrate (Lopressor -) 50 mg PO TID [facility] Last Admin: 11/15/16 05:38 Dose: 50 mg Nystatin (Nystatin Oral Suspension -) 500,000 units PO Q6HPO [facility] Last Admin: 11/15/16 12:21 Dose: 500,000 units Potassium Chloride (Potassium Chloride Oral Liquid) 20 meq PEG TID [facility] Scopolamine HBr (Transderm-Scop -) 1 patch TD Q72H [facility] Last Admin: 11/13/16 18:37 Dose: 1 patch - Objective Vital Signs: Vital Signs Temperature 97.9 F 11/15/16 05:36 Pulse Rate 80 11/15/16 10:05 Respiratory Rate 18 11/15/16 10:00 Blood Pressure 129/94 11/15/16 05:36 O2 Sat by Pulse Oximetry (%) 100 11/15/16 10:00 Constitutional: Yes: Well Nourished, Calm Eyes: Yes: WNL HENT: Yes: WNL Neck: Yes: Supple (trach) Cardiovascular: Yes: Pulse Irregular, S1, S2 Respiratory: Yes: On BiPap (few rhonchi) Gastrointestinal: Yes: Normal Bowel Sounds, Soft Extremities: Yes: WNL Edema: Yes Labs: CBC, BMP 11/15/16 07:30 11/15/16 07:30 INR, PTT INR 1.30 (0.82-1.09) H 10/28/16 17:45 Problem List - Problems (1) Cardiac arrest Code(s): I46.9 - CARDIAC ARREST, CAUSE UNSPECIFIED (2) Diastolic CHF Code(s): I50.30 - UNSPECIFIED DIASTOLIC (CONGESTIVE) HEART FAILURE (3) Pneumonia Code(s): J18.9 - PNEUMONIA, UNSPECIFIED ORGANISM Qualifiers: Pneumonia type: due to unspecified organism Laterality: left Lung location: upper lobe of lung Qualified Code(s): J18.1 - Lobar pneumonia, unspecified organism (4) Respiratory failure requiring intubation Code(s): J96.90 - RESPIRATORY FAILURE, UNSP, UNSP W HYPOXIA OR HYPERCAPNIA (5) Status post tracheostomy Code(s): Z93.0 - TRACHEOSTOMY STATUS (6) ALS (amyotrophic lateral sclerosis) Code(s): G12.21 - AMYOTROPHIC LATERAL SCLEROSIS (7) Hyperthyroidism Code(s): E05.90 - THYROTOXICOSIS, UNSP WITHOUT THYROTOXIC CRISIS OR STORM (8) Paroxysmal atrial fibrillation Code(s): I48.0 - PAROXYSMAL ATRIAL FIBRILLATION (9) Pleural effusion Code(s): J90 - PLEURAL EFFUSION, NOT ELSEWHERE CLASSIFIED (10) Respiratory failure Code(s): J96.90 - RESPIRATORY FAILURE, UNSP, UNSP W HYPOXIA OR HYPERCAPNIA Qualifiers: Chronicity: acute Respiratory failure complication: hypoxia and hypercapnia Qualified Code(s): J96.01 - Acute respiratory failure with hypoxia Assessment/Plan ASSESSMENT AND PLAN: S/P Trach due to failure to wean due to ALS R/O VAP Acute on Chronic Hypoxic and Hypercapneic Respiratory Failure s/p Cardiac Arrest likely from Respiratory Failure Pneumonia Sepsis Lactic Acidosis resolved Advanced ALS Paroxysmal Atrial Fibrillation with RVR HTN Hyperthyroidism - ABX per ID - AC - PEG feeds as tolerated - DVT/GI prophylaxis - Glycemic control - Lasix - inhaled bronchodilators - replete K DR BELTRAN
[2016-11-15 13:32] LABS: ANION GAP 7 (8-16); CALCIUM 8.5 mg/dL (8.5-10.1); CO2 36 mmol/L (21-32); CREATININE < 0.2 mg/dL (0.55-1.02); GLUCOSE,RANDOM 121 mg/dL (74-106)
--- NOTE | 2016-11-15 14:01 | PN ---
Teaching Attending Note Name of Resident: Manjula Delvalle ATTENDING PHYSICIAN STATEMENT I saw and evaluated the patient. I reviewed the resident's note and discussed the case with the resident. I agree with the resident's findings and plan as documented. SUBJECTIVE:resting comfortable. shakes head no to difficulty breathing, CP or abdominal pain OBJECTIVE: Last Vital Signs Temp Pulse Resp BP Pulse Ox 98.4 F 80 15 110/71 97 11/15/16 10:00 11/15/16 10:05 11/15/16 13:49 11/15/16 10:00 11/15/16 10:00 General NAD CV S1 S2 RRR no murmur/rub/gallops Lungs coarse breath sounds no wheezing anteriorly Abdomen soft NT/ND not tympanic normoactive BS Assessment & PLan 56-year-old woman with a history of ALS, chronic hypercapnic respiratory failure , HTN, hyperthyroidism, atrial fib, hyperlipidemia who was brought in to the ER after being intubated by EMS for acute respiratory distress and subsequently had cardiac arrest in the ER. 1. s/p cardiac arrest, secondary to hypoxia vs electrolyte abnormality 2. Acute on chronic hypoxic and hypercapnic respiratory failure- due to progression of ALS. has failed daily CPAP trials and trach on 10/25. vent management per pulmonary. chest PT, frequent suctioning, scopolamine patch. lasix po. 3. dysphagia- s/p PEG placement 10/29. 4. Ileus-concern for progression of ALS. now resolved. tolerating PEG feeds 5. Sepsis due to worsening PNA vs UTI- +pseudomonas in the Sputum Cx. afebrile 24H. today is last day of abx course. d/c levaquin today 6. Hypokalemia-chronic liekly due to loose BM and lasix use. cont chronic supplementation. will need to monitor potassium levels as outpatient 7. Hypophosphatemia-resolved 8. HTN- controlled. on po medications via tube 9. Paroxysmal atrial fibrillation/flutter with RVR-rate controlled. cardizem increased yesterday and tolerating well. on eliquis. 10. Acute anemia-anemia of chronic disease. stable. no indication for txn at this time. 11. Hyperglycemia-likely steroid induced A1c 4.3. 12. Depression- Continue Remeron 13. ALS 14. DVT prophylaxis- eliquis 15. d/c SNF. family to pursue bringing her home from SNF if they still desire
[2016-11-15 15:29] VITALS: BP 120/70; PULSE 86; TEMP 98.2
--- NOTE | 2016-11-15 16:10 | DS ---
Physical Exam: SUBJECTIVE: Patient seen and examined at bedside. Pt interactive, resting comfortably. As per nurse, pt was afebrile throughout the night and HR was controlled to 80s-90s. OBJECTIVE: Vital Signs Period Temp Pulse Resp BP Sys/Hatch Pulse Ox Last 24 Hr 97.7 F-98.4 F 80-100 15-18 110-129/69-94 97-100 PHYSICAL EXAM GENERAL: The patient is awake, alert, in no acute distress. HEAD: Normal with no signs of trauma. EYES: PERRL, extraocular movements intact, sclera anicteric, conjunctiva clear. ENT: Ears normal, nares patent, oropharynx clear without exudates, moist mucous membranes. Increased oropharyngeal secretions. NECK: Trachea midline, full range of motion, supple. Trach site intact. LUNGS: Breath sounds equal, clear to auscultation bilaterally, no wheezes, no crackles, no accessory muscle use. HEART: Regular rate and rhythm, S1, S2 without murmur, rub or gallop. ABDOMEN: Soft, nontender, nondistended, normoactive bowel sounds, no guarding, no rebound, no hepatosplenomegaly, no masses. PEG site clean, no bleeding or discharge. EXTREMITIES: 2+ posterior tibial pulses, warm, well-perfused, no edema. NEUROLOGICAL: pt interactive, able to follow commands (handgrip, wiggle toes). Nods or shakes head when asked questions. VITALS TREND/LABS VITALS 10/15/16 10/16/16 10/16/16 23:28 00:38 02:00 Ventilator Placement Temperature 99 F 99.7 F H 100.6 F H Pulse Rate Pulse Rhythm [ Apical] Respiratory Rate Blood Pressure Blood Pressure Mean O2 Sat by Pulse Oximetry (%) Oxygen Delivery Method 10/16/16 10/16/16 10/16/16 04:00 06:00 08:00 Ventilator Placement Temperature 100.6 F H 100.9 F H 100.7 F H Pulse Rate Pulse Rhythm [ Apical] Respiratory Rate Blood Pressure Blood Pressure Mean O2 Sat by Pulse Oximetry (%) Oxygen Delivery Method 10/16/16 10/16/16 10/16/16 10:00 12:00 14:00 Ventilator Placement Temperature 100.6 F H Pulse Rate 86 95 H Pulse Rhythm [ Apical] Respiratory Rate Blood Pressure Blood Pressure Mean O2 Sat by Pulse Oximetry (%) Oxygen Delivery Method 10/16/16 10/16/16 10/16/16 16:00 18:00 20:00 Ventilator Placement Temperature Pulse Rate 97 H 95 H 97 H Pulse Rhythm [ Apical] Respiratory Rate Blood Pressure Blood Pressure Mean O2 Sat by Pulse Oximetry (%) Oxygen Delivery Method 10/16/16 10/17/16 10/17/16 22:00 00:00 02:00 Ventilator Placement Temperature Pulse Rate 99 H 99 H 90 Pulse Rhythm [ Apical] Respiratory Rate Blood Pressure Blood Pressure Mean O2 Sat by Pulse Oximetry (%) Oxygen Delivery Method 10/17/16 10/17/16 10/17/16 04:00 06:00 08:00 Ventilator Placement Temperature Pulse Rate 83 82 84 Pulse Rhythm [ Apical] Respiratory Rate Blood Pressure Blood Pressure Mean O2 Sat by Pulse Oximetry (%) Oxygen Delivery Method 10/17/16 10/17/16 10/17/16 10:00 10:24 11:05 Ventilator Placement Temperature Pulse Rate 83 84 160 H Pulse Rhythm [ Apical] Respiratory Rate Blood Pressure Blood Pressure Mean O2 Sat by Pulse Oximetry (%) Oxygen Delivery Method 10/17/16 10/17/16 10/17/16 11:15 12:00 14:00 Ventilator Placement Temperature 99.3 F 100.5 F H Pulse Rate 155 H Pulse Rhythm [ Apical] Respiratory Rate Blood Pressure Blood Pressure Mean O2 Sat by Pulse Oximetry (%) Oxygen Delivery Method 10/17/16 10/17/16 10/17/16 16:00 18:00 20:00 Ventilator Placement Temperature 100.4 F H 99.8 F H 99.9 F H Pulse Rate Pulse Rhythm [ Apical] Respiratory Rate Blood Pressure Blood Pressure Mean O2 Sat by Pulse Oximetry (%) Oxygen Delivery Method 10/17/16 10/18/16 10/18/16 22:00 12:00 14:00 Ventilator Placement Temperature 100.2 F H 99.4 F 99.3 F Pulse Rate 88 100 H Pulse Rhythm [ Apical] Respiratory Rate Blood Pressure 147/90 166/93 Blood Pressure Mean O2 Sat by Pulse Oximetry (%) Oxygen Delivery Method 10/18/16 10/18/16 10/18/16 16:00 17:17 17:37 Ventilator Placement Temperature 98.4 F 98.4 F Pulse Rate 96 H 96 H 88 Pulse Rhythm [ Apical] Respiratory Rate Blood Pressure 130/79 130/79 Blood Pressure Mean O2 Sat by Pulse Oximetry (%) Oxygen Delivery Method 10/18/16 10/18/16 10/18/16 18:00 20:00 22:00 Ventilator Placement Temperature 98.2 F 100.3 F H 100 F H Pulse Rate 101 H 106 H 84 Pulse Rhythm [ Apical] Respiratory Rate Blood Pressure 126/79 140/91 140/88 Blood Pressure Mean O2 Sat by Pulse Oximetry (%) Oxygen Delivery Method 10/19/16 10/19/16 10/19/16 00:00 01:59 02:00 Ventilator Placement Temperature Pulse Rate Pulse Rhythm [ Apical] Respiratory 14 12 14 Rate Blood Pressure 110/71 99/67 Blood Pressure Mean O2 Sat by Pulse Oximetry (%) Oxygen Delivery Method 10/19/16 10/19/16 10/19/16 04:00 05:16 06:00 Ventilator Placement Temperature Pulse Rate Pulse Rhythm [ Apical] Respiratory 12 12 14 Rate Blood Pressure 126/80 125/86 Blood Pressure Mean O2 Sat by Pulse Oximetry (%) Oxygen Delivery Method 10/19/16 10/19/16 10/19/16 07:12 07:27 07:33 Ventilator Placement Temperature Pulse Rate Pulse Rhythm [ Apical] Respiratory 12 18 18 Rate Blood Pressure 130/89 Blood Pressure Mean O2 Sat by Pulse Oximetry (%) Oxygen Delivery Method 10/19/16 10/19/16 10/19/16 07:39 09:00 09:30 Ventilator Placement Temperature Pulse Rate Pulse Rhythm [ Apical] Respiratory 18 34 H 17 Rate Blood Pressure 124/81 Blood Pressure Mean O2 Sat by Pulse Oximetry (%) Oxygen Delivery Method 10/19/16 10/19/16 10/19/16 10:08 11:10 13:11 Ventilator Placement Temperature 99 F Pulse Rate 88 Pulse Rhythm [ Apical] Respiratory 34 H 28 H Rate Blood Pressure 182/100 166/105 Blood Pressure Mean O2 Sat by Pulse Oximetry (%) Oxygen Delivery Method 10/19/16 10/19/16 10/19/16 14:20 15:39 16:00 Ventilator Placement Temperature 100 F H 99.8 F H Pulse Rate 88 94 H 88 Pulse Rhythm [ Apical] Respiratory Rate Blood Pressure Blood Pressure Mean O2 Sat by Pulse Oximetry (%) Oxygen Delivery Method 10/19/16 10/19/16 10/19/16 17:00 18:02 19:00 Ventilator Placement Temperature 98.9 F 98.7 F Pulse Rate 112 H 95 H 95 H Pulse Rhythm [ Apical] Respiratory Rate Blood Pressure Blood Pressure Mean O2 Sat by Pulse Oximetry (%) Oxygen Delivery Method 10/19/16 10/20/16 10/20/16 21:00 01:00 03:00 Ventilator Placement Temperature 99.6 F 99.6 F 99.8 F H Pulse Rate 94 H Pulse Rhythm [ Apical] Respiratory Rate Blood Pressure Blood Pressure Mean O2 Sat by Pulse Oximetry (%) Oxygen Delivery Method 10/20/16 10/20/16 10/20/16 05:00 07:00 08:00 Ventilator Placement Temperature 99.9 F H 99.9 F H 99.4 F Pulse Rate Pulse Rhythm [ Apical] Respiratory Rate Blood Pressure Blood Pressure Mean O2 Sat by Pulse Oximetry (%) Oxygen Delivery Method 10/20/16 10/21/16 10/21/16 10:00 00:00 08:00 Ventilator Placement Temperature 99.7 F H Pulse Rate Pulse Rhythm [ Apical] Respiratory Rate Blood Pressure Blood Pressure Mean O2 Sat by Pulse 91 L 96 Oximetry (%) Oxygen Delivery Method 10/21/16 10/21/16 10/21/16 10:05 12:00 14:00 Ventilator Placement Temperature 99.3 F 99.9 F H Pulse Rate Pulse Rhythm [ Apical] Respiratory Rate Blood Pressure Blood Pressure Mean O2 Sat by Pulse 91 L Oximetry (%) Oxygen Delivery Method 10/21/16 10/21/16 10/21/16 16:00 16:34 18:00 Ventilator Placement Temperature 100.4 F H 99.4 F 100.7 F H Pulse Rate Pulse Rhythm [ Apical] Respiratory Rate Blood Pressure Blood Pressure Mean O2 Sat by Pulse Oximetry (%) Oxygen Delivery Method 10/21/16 10/21/16 10/22/16 20:00 22:00 00:00 Ventilator Placement Temperature 100 F H 99.8 F H Pulse Rate 132 H Pulse Rhythm [ Irregular Apical] Respiratory Rate Blood Pressure Blood Pressure Mean O2 Sat by Pulse 91 L Oximetry (%) Oxygen Delivery Method 10/22/16 10/22/16 10/22/16 01:00 02:00 03:00 Ventilator Placement Temperature 100.2 F H Pulse Rate 102 H 93 H 96 H Pulse Rhythm [ Apical] Respiratory Rate Blood Pressure Blood Pressure Mean O2 Sat by Pulse Oximetry (%) Oxygen Delivery Method 07/10/22/16 10/22/16 04:00 05:00 06:00 Ventilator Placement Temperature 99 F Pulse Rate 103 H 102 H 132 H Pulse Rhythm [ Apical] Respiratory Rate Blood Pressure Blood Pressure Mean O2 Sat by Pulse Oximetry (%) Oxygen Delivery Method 10/22/16 10/22/16 10/22/16 06:30 08:00 09:00 Ventilator Placement Temperature Pulse Rate 95 H 107 H Pulse Rhythm [ Irregular Apical] Respiratory Rate Blood Pressure Blood Pressure Mean O2 Sat by Pulse Oximetry (%) Oxygen Delivery Method 10/22/16 10/22/16 10/22/16 10:00 12:00 14:00 Ventilator Placement Temperature 100.7 F H Pulse Rate 149 H 147 H 98 H Pulse Rhythm [ Apical] Respiratory Rate Blood Pressure Blood Pressure Mean O2 Sat by Pulse Oximetry (%) Oxygen Delivery Method 10/22/16 10/22/16 10/22/16 16:00 18:00 19:30 Ventilator Placement Temperature Pulse Rate 106 H 120 H 106 H Pulse Rhythm [ Apical] Respiratory Rate Blood Pressure Blood Pressure Mean O2 Sat by Pulse Oximetry (%) Oxygen Delivery Method 10/22/16 10/22/16 10/22/16 19:38 21:00 22:00 Ventilator Placement Temperature 100 F H Pulse Rate 105 H 129 H Pulse Rhythm [ Irregular Apical] Respiratory Rate Blood Pressure Blood Pressure Mean O2 Sat by Pulse Oximetry (%) Oxygen Delivery Method 10/22/16 10/23/16 10/23/16 23:00 00:00 02:00 Ventilator Placement Temperature 100 F H Pulse Rate 107 H 112 H 123 H Pulse Rhythm [ Apical] Respiratory Rate Blood Pressure Blood Pressure Mean O2 Sat by Pulse Oximetry (%) Oxygen Delivery Method 10/23/16 10/23/16 10/23/16 03:00 04:00 05:00 Ventilator Placement Temperature Pulse Rate 91 H 110 H 97 H Pulse Rhythm [ Apical] Respiratory Rate Blood Pressure Blood Pressure Mean O2 Sat by Pulse Oximetry (%) Oxygen Delivery Method 10/23/16 10/23/16 10/23/16 06:00 08:00 09:00 Ventilator Placement Temperature 99.8 F H Pulse Rate 88 154 H Pulse Rhythm [ Irregular Apical] Respiratory Rate Blood Pressure Blood Pressure Mean O2 Sat by Pulse Oximetry (%) Oxygen Delivery Method 10/23/16 10/23/16 10/23/16 09:27 10:00 10:15 Ventilator Placement Temperature 100.3 F H Pulse Rate 160 H 144 H 130 H Pulse Rhythm [ Apical] Respiratory Rate Blood Pressure Blood Pressure Mean O2 Sat by Pulse Oximetry (%) Oxygen Delivery Method 10/23/16 10/23/16 10/23/16 12:00 14:00 15:37 Ventilator Placement Temperature 99.9 F H Pulse Rate 164 H 129 H 147 H Pulse Rhythm [ Apical] Respiratory Rate Blood Pressure Blood Pressure Mean O2 Sat by Pulse Oximetry (%) Oxygen Delivery Method 10/23/16 10/23/16 10/23/16 16:00 18:21 19:00 Ventilator Placement Temperature 98.6 F 98.8 F Pulse Rate 130 H 124 H 165 H Pulse Rhythm [ Apical] Respiratory Rate Blood Pressure Blood Pressure Mean O2 Sat by Pulse Oximetry (%) Oxygen Delivery Method 10/23/16 10/23/16 10/23/16 19:30 20:00 20:29 Ventilator Placement Temperature Pulse Rate 162 H 143 H 143 H Pulse Rhythm [ Apical] Respiratory Rate Blood Pressure Blood Pressure Mean O2 Sat by Pulse Oximetry (%) Oxygen Delivery Method 10/23/16 10/23/16 10/23/16 21:00 22:00 23:00 Ventilator Placement Temperature 98.6 F Pulse Rate 143 H 98 H 81 Pulse Rhythm [ Irregular Apical] Respiratory Rate Blood Pressure Blood Pressure Mean O2 Sat by Pulse Oximetry (%) Oxygen Delivery Method 10/24/16 10/24/16 10/24/16 00:00 02:00 03:00 Ventilator Placement Temperature Pulse Rate 82 85 84 Pulse Rhythm [ Apical] Respiratory Rate Blood Pressure Blood Pressure Mean O2 Sat by Pulse Oximetry (%) Oxygen Delivery Method 10/24/16 10/24/16 10/24/16 04:00 05:07 06:00 Ventilator Placement Temperature Pulse Rate 84 86 93 H Pulse Rhythm [ Apical] Respiratory Rate Blood Pressure Blood Pressure Mean O2 Sat by Pulse Oximetry (%) Oxygen Delivery Method 10/24/16 10/24/16 10/24/16 09:00 09:50 10:00 Ventilator Placement Temperature Pulse Rate 85 91 H 81 Pulse Rhythm [ Irregular Apical] Respiratory Rate Blood Pressure Blood Pressure Mean O2 Sat by Pulse Oximetry (%) Oxygen Delivery Method 10/24/16 10/24/16 10/24/16 10:43 12:00 14:00 Ventilator Placement Temperature Pulse Rate 95 H 80 90 Pulse Rhythm [ Apical] Respiratory Rate Blood Pressure Blood Pressure Mean O2 Sat by Pulse Oximetry (%) Oxygen Delivery Method 10/24/16 10/24/16 10/24/16 15:04 15:15 15:20 Ventilator Placement Temperature Pulse Rate 99 H 98 H 95 H Pulse Rhythm [ Apical] Respiratory Rate Blood Pressure Blood Pressure Mean O2 Sat by Pulse Oximetry (%) Oxygen Delivery Method 10/24/16 10/24/16 10/24/16 15:30 15:40 15:50 Ventilator Placement Temperature Pulse Rate 98 H 102 H 101 H Pulse Rhythm [ Apical] Respiratory Rate Blood Pressure Blood Pressure Mean O2 Sat by Pulse Oximetry (%) Oxygen Delivery Method 10/24/16 10/24/16 10/24/16 15:55 16:00 16:10 Ventilator Placement Temperature Pulse Rate 93 H 105 H 99 H Pulse Rhythm [ Apical] Respiratory Rate Blood Pressure Blood Pressure Mean O2 Sat by Pulse Oximetry (%) Oxygen Delivery Method 10/24/16 10/24/16 10/24/16 16:20 16:35 17:47 Ventilator Placement Temperature Pulse Rate 97 H 96 H 93 H Pulse Rhythm [ Apical] Respiratory Rate Blood Pressure Blood Pressure Mean O2 Sat by Pulse Oximetry (%) Oxygen Delivery Method 10/24/16 10/24/16 10/25/16 19:47 22:00 00:00 Ventilator Placement Temperature Pulse Rate 77 129 H 92 H Pulse Rhythm [ Apical] Respiratory Rate Blood Pressure Blood Pressure Mean O2 Sat by Pulse Oximetry (%) Oxygen Delivery Method 10/25/16 10/25/16 10/25/16 02:00 04:00 06:00 Ventilator Placement Temperature 99 F 98.6 F Pulse Rate 88 85 101 H Pulse Rhythm [ Apical] Respiratory Rate Blood Pressure Blood Pressure Mean O2 Sat by Pulse Oximetry (%) Oxygen Delivery Method 10/25/16 10/25/16 10/25/16 08:00 09:54 10:00 Ventilator Placement Temperature Pulse Rate 95 H 96 H 95 H Pulse Rhythm [ Apical] Respiratory Rate Blood Pressure Blood Pressure Mean O2 Sat by Pulse Oximetry (%) Oxygen Delivery Method 10/25/16 10/25/16 10/25/16 12:00 13:16 14:00 Ventilator Placement Temperature 99.3 F Pulse Rate Pulse Rhythm [ Apical] Respiratory Rate Blood Pressure 138/81 146/101 130/82 Blood Pressure Mean O2 Sat by Pulse Oximetry (%) Oxygen Delivery Method 10/25/16 10/25/16 10/25/16 16:00 18:00 19:55 Ventilator Placement Temperature 98.8 F Pulse Rate Pulse Rhythm [ Apical] Respiratory Rate Blood Pressure 139/91 134/84 135/83 Blood Pressure Mean O2 Sat by Pulse Oximetry (%) Oxygen Delivery Method 10/25/16 10/25/16 10/25/16 20:00 21:37 22:00 Ventilator Placement Temperature 98.9 F Pulse Rate Pulse Rhythm [ Apical] Respiratory Rate Blood Pressure 135/83 135/83 135/97 Blood Pressure Mean O2 Sat by Pulse Oximetry (%) Oxygen Delivery Method 10/26/16 10/26/16 10/26/16 00:00 02:00 02:38 Ventilator Placement Temperature Pulse Rate 96 H 73 94 H Pulse Rhythm [ Apical] Respiratory Rate Blood Pressure 136/91 135/87 135/87 Blood Pressure Mean O2 Sat by Pulse Oximetry (%) Oxygen Delivery Method 10/26/16 10/26/16 10/26/16 04:00 06:00 08:00 Ventilator Placement Temperature Pulse Rate 78 79 103 H Pulse Rhythm [ Apical] Respiratory Rate Blood Pressure 134/89 130/96 140/93 Blood Pressure Mean O2 Sat by Pulse Oximetry (%) Oxygen Delivery Method 10/26/16 10/26/16 10/26/16 08:29 10:00 10:50 Ventilator Placement Temperature Pulse Rate 148 H 101 H 101 H Pulse Rhythm [ Apical] Respiratory Rate Blood Pressure 140/93 164/99 Blood Pressure Mean O2 Sat by Pulse Oximetry (%) Oxygen Delivery Method 10/26/16 10/26/16 10/26/16 12:00 12:15 14:00 Ventilator Placement Temperature 99 F Pulse Rate 99 H 122 H 89 Pulse Rhythm [ Apical] Respiratory Rate Blood Pressure 162/90 159/92 Blood Pressure Mean O2 Sat by Pulse Oximetry (%) Oxygen Delivery Method 10/26/16 10/26/16 10/26/16 14:32 16:00 18:00 Ventilator Placement Temperature 98.8 F Pulse Rate 148 H 94 H 92 H Pulse Rhythm [ Apical] Respiratory Rate Blood Pressure 160/92 142/88 159/95 Blood Pressure Mean O2 Sat by Pulse Oximetry (%) Oxygen Delivery Method 10/26/16 10/26/16 10/26/16 19:21 19:55 20:00 Ventilator Placement Temperature Pulse Rate 160 H 88 89 Pulse Rhythm [ Apical] Respiratory Rate Blood Pressure 146/95 157/90 157/100 Blood Pressure Mean O2 Sat by Pulse Oximetry (%) Oxygen Delivery Method 10/26/16 10/27/16 10/27/16 22:00 00:00 02:00 Ventilator Placement Temperature 98.8 F 99.9 F H Pulse Rate 71 Pulse Rhythm [ Apical] Respiratory Rate Blood Pressure 157/90 162/97 152/81 Blood Pressure Mean O2 Sat by Pulse Oximetry (%) Oxygen Delivery Method 10/27/16 10/27/16 10/27/16 04:00 06:00 08:00 Ventilator Placement Temperature 99.6 F Pulse Rate Pulse Rhythm [ Apical] Respiratory Rate Blood Pressure 150/88 164/93 132/79 Blood Pressure Mean O2 Sat by Pulse Oximetry (%) Oxygen Delivery Method 10/27/16 10/28/16 10/28/16 10:00 12:00 14:00 Ventilator Placement Temperature 99.2 F 99 F Pulse Rate 84 86 Pulse Rhythm [ Apical] Respiratory Rate Blood Pressure 152/93 Blood Pressure Mean O2 Sat by Pulse Oximetry (%) Oxygen Delivery Method 10/28/16 10/28/16 10/28/16 16:00 17:51 20:00 Ventilator Placement Temperature 99 F 99 F Pulse Rate 112 H 72 91 H Pulse Rhythm [ Apical] Respiratory Rate Blood Pressure Blood Pressure Mean O2 Sat by Pulse Oximetry (%) Oxygen Delivery Method 10/28/16 10/29/16 10/29/16 22:00 00:00 02:00 Ventilator Placement Temperature 101 F H 100.3 F H 100.3 F H Pulse Rate 96 H 77 77 Pulse Rhythm [ Apical] Respiratory Rate Blood Pressure Blood Pressure Mean O2 Sat by Pulse Oximetry (%) Oxygen Delivery Method 10/29/16 10/29/16 10/29/16 04:00 06:00 07:10 Ventilator Placement Temperature 100.4 F H Pulse Rate 89 84 Pulse Rhythm [ Apical] Respiratory Rate Blood Pressure Blood Pressure Mean O2 Sat by Pulse 95 Oximetry (%) Oxygen Delivery Method 10/29/16 10/29/16 10/29/16 07:20 08:00 08:40 Ventilator Placement Temperature 100.4 F H 100.4 F H Pulse Rate 80 75 88 Pulse Rhythm [ Apical] Respiratory Rate Blood Pressure Blood Pressure Mean O2 Sat by Pulse 98 Oximetry (%) Oxygen Delivery Method 10/29/16 10/29/16 10/29/16 08:55 09:10 10:00 Ventilator Placement Temperature 100.3 F H 100.4 F H 100.1 F H Pulse Rate 86 62 Pulse Rhythm [ Apical] Respiratory Rate Blood Pressure Blood Pressure Mean O2 Sat by Pulse 94 L Oximetry (%) Oxygen Delivery Method 10/29/16 10/29/16 10/29/16 10:34 11:09 12:00 Ventilator Placement Temperature 100 F H Pulse Rate 92 H 77 Pulse Rhythm [ Apical] Respiratory Rate Blood Pressure 160/94 Blood Pressure Mean O2 Sat by Pulse 94 L Oximetry (%) Oxygen Delivery Method 10/29/16 10/29/16 10/29/16 14:00 16:00 18:00 Ventilator Placement Temperature 100.0 F H 100.1 F H 100.2 F H Pulse Rate 59 L 56 L 84 Pulse Rhythm [ Apical] Respiratory Rate Blood Pressure 125/77 123/77 144/92 Blood Pressure Mean O2 Sat by Pulse Oximetry (%) Oxygen Delivery Method 10/29/16 10/29/16 10/29/16 20:00 22:00 22:36 Ventilator Placement Temperature 100.2 F H 100.4 F H Pulse Rate 69 68 91 H Pulse Rhythm [ Apical] Respiratory Rate Blood Pressure 147/76 121/67 Blood Pressure Mean O2 Sat by Pulse Oximetry (%) Oxygen Delivery Method 10/30/16 10/30/16 10/30/16 00:00 02:00 04:00 Ventilator Placement Temperature 100.3 F H 100.6 F H Pulse Rate 68 73 73 Pulse Rhythm [ Apical] Respiratory Rate Blood Pressure 116/66 125/64 118/66 Blood Pressure Mean O2 Sat by Pulse Oximetry (%) Oxygen Delivery Method 10/30/16 10/30/16 10/30/16 06:00 08:00 09:00 Ventilator Placement Temperature 100 F H 99.8 F H Pulse Rate 67 68 Pulse Rhythm [ Apical] Respiratory Rate Blood Pressure 120/64 131/78 Blood Pressure Mean O2 Sat by Pulse 97 Oximetry (%) Oxygen Delivery Mechanical Method Ventilator 10/30/16 10/30/16 10/30/16 09:47 10:00 12:00 Ventilator Placement Temperature Pulse Rate 70 66 68 Pulse Rhythm [ Apical] Respiratory Rate Blood Pressure 159/92 121/23 Blood Pressure Mean O2 Sat by Pulse Oximetry (%) Oxygen Delivery Method 10/30/16 10/30/16 10/30/16 14:00 16:00 18:00 Ventilator Placement Temperature 99 F 100 F H 100.2 F H Pulse Rate 64 68 63 Pulse Rhythm [ Apical] Respiratory Rate Blood Pressure 140/77 140/74 140/80 Blood Pressure Mean O2 Sat by Pulse Oximetry (%) Oxygen Delivery Method 10/30/16 10/30/16 10/30/16 18:21 20:00 20:06 Ventilator Placement Temperature 100 F H Pulse Rate 64 106 H Pulse Rhythm [ Apical] Respiratory Rate Blood Pressure 157/95 Blood Pressure Mean O2 Sat by Pulse 100 100 Oximetry (%) Oxygen Delivery Mechanical Trach Tube Method Ventilator 10/30/16 10/30/16 10/31/16 20:30 22:00 00:00 Ventilator Placement Temperature 99.8 F H Pulse Rate 126 H 65 Pulse Rhythm [ Apical] Respiratory Rate Blood Pressure 151/91 132/83 Blood Pressure 99 Mean O2 Sat by Pulse Oximetry (%) Oxygen Delivery Method 10/31/16 10/31/16 10/31/16 02:00 04:00 06:00 Ventilator Placement Temperature 99.7 F H 99.6 F Pulse Rate Pulse Rhythm [ Apical] Respiratory Rate Blood Pressure 143/57 127/85 150/92 Blood Pressure 85 99 111 Mean O2 Sat by Pulse Oximetry (%) Oxygen Delivery Method 10/31/16 10/31/16 10/31/16 08:00 10:00 10:15 Ventilator Placement Temperature 99.6 F Pulse Rate Pulse Rhythm [ Apical] Respiratory Rate Blood Pressure 127/83 150/79 Blood Pressure 97 102 Mean O2 Sat by Pulse 93 L Oximetry (%) Oxygen Delivery Method 10/31/16 10/31/16 10/31/16 12:00 14:00 14:30 Ventilator Placement Temperature 99.9 F H Pulse Rate Pulse Rhythm [ Apical] Respiratory 17 21 20 Rate Blood Pressure 153/92 Blood Pressure Mean O2 Sat by Pulse Oximetry (%) Oxygen Delivery Method 10/31/16 10/31/16 10/31/16 16:00 17:24 18:00 Ventilator Placement Temperature 98.3 F 100.2 F H Pulse Rate Pulse Rhythm [ Apical] Respiratory 20 20 19 Rate Blood Pressure 181/95 142/84 Blood Pressure Mean O2 Sat by Pulse Oximetry (%) Oxygen Delivery Method 10/31/16 10/31/16 10/31/16 18:59 19:29 20:00 Ventilator Placement Temperature 100.2 F H Pulse Rate Pulse Rhythm [ Apical] Respiratory 19 18 Rate Blood Pressure 141/78 157/82 Blood Pressure Mean O2 Sat by Pulse 93 L Oximetry (%) Oxygen Delivery Method 10/31/16 10/31/16 11/01/16 21:00 22:00 12:00 Ventilator Placement Temperature Pulse Rate Pulse Rhythm [ Apical] Respiratory 19 18 Rate Blood Pressure 165/88 137/93 Blood Pressure Mean O2 Sat by Pulse Oximetry (%) Oxygen Delivery Method 11/01/16 11/01/16 11/01/16 14:00 16:00 18:00 Ventilator Placement Temperature 100.1 F H Pulse Rate Pulse Rhythm [ Apical] Respiratory Rate Blood Pressure 134/83 150/84 143/90 Blood Pressure Mean O2 Sat by Pulse Oximetry (%) Oxygen Delivery Method 11/01/16 11/01/16 11/02/16 20:30 22:28 10:25 Ventilator Trach to Vent Placement Temperature 100.3 F H Pulse Rate Pulse Rhythm [ Apical] Respiratory Rate Blood Pressure 154/89 146/90 Blood Pressure Mean O2 Sat by Pulse Oximetry (%) Oxygen Delivery Method 11/02/16 11/02/16 11/02/16 14:10 18:12 21:05 Ventilator Trach to Vent Trach to Vent Trach to Vent Placement Temperature Pulse Rate Pulse Rhythm [ Apical] Respiratory Rate Blood Pressure Blood Pressure Mean O2 Sat by Pulse Oximetry (%) Oxygen Delivery Method 11/03/16 11/03/16 11/03/16 01:01 05:35 06:38 Ventilator Trach to Vent Trach to Vent Placement Temperature 101.5 F H Pulse Rate Pulse Rhythm [ Apical] Respiratory Rate Blood Pressure Blood Pressure Mean O2 Sat by Pulse Oximetry (%) Oxygen Delivery Method 11/03/16 11/03/16 11/03/16 09:00 15:26 18:00 Ventilator Placement Temperature 100.4 F H Pulse Rate Pulse Rhythm [ Apical] Respiratory Rate Blood Pressure 146/99 126/68 Blood Pressure Mean O2 Sat by Pulse Oximetry (%) Oxygen Delivery Method 11/03/16 11/04/16 11/04/16 22:00 02:00 06:00 Ventilator Placement Temperature 98.1 F Pulse Rate 84 83 Pulse Rhythm [ Apical] Respiratory Rate Blood Pressure 116/77 Blood Pressure Mean O2 Sat by Pulse Oximetry (%) Oxygen Delivery Method 11/04/16 11/04/16 11/04/16 09:30 09:41 10:08 Ventilator Placement Temperature 100.8 F H Pulse Rate 75 75 53 L Pulse Rhythm [ Apical] Respiratory Rate Blood Pressure Blood Pressure Mean O2 Sat by Pulse Oximetry (%) Oxygen Delivery Method 11/04/16 11/04/16 11/04/16 15:26 17:17 17:59 Ventilator Placement Temperature 99.3 F 99.0 F Pulse Rate Pulse Rhythm [ Apical] Respiratory Rate Blood Pressure 140/78 137/76 137/76 Blood Pressure 98 96 96 Mean O2 Sat by Pulse Oximetry (%) Oxygen Delivery Method 11/04/16 11/05/16 11/05/16 21:00 01:00 01:15 Ventilator Placement Temperature 99.1 F 100.2 F H Pulse Rate 101 H 98 H Pulse Rhythm [ Apical] Respiratory Rate Blood Pressure 148/70 126/92 148/82 Blood Pressure 96 Mean O2 Sat by Pulse Oximetry (%) Oxygen Delivery Method 11/05/16 11/05/16 11/05/16 06:00 09:15 11:08 Ventilator Placement Temperature 100.3 F H 99.1 F Pulse Rate 146 H 91 H 99 H Pulse Rhythm [ Apical] Respiratory Rate Blood Pressure 152/78 122/88 Blood Pressure Mean O2 Sat by Pulse Oximetry (%) Oxygen Delivery Method 11/05/16 11/05/16 11/05/16 11:12 15:41 17:43 Ventilator Placement Temperature Pulse Rate 99 H 86 120 H Pulse Rhythm [ Apical] Respiratory Rate Blood Pressure 122/88 127/77 130/90 Blood Pressure Mean O2 Sat by Pulse Oximetry (%) Oxygen Delivery Method 11/05/16 11/05/16 11/05/16 18:00 18:15 19:00 Ventilator Placement Temperature Pulse Rate 162 H 130 H 92 H Pulse Rhythm [ Apical] Respiratory Rate Blood Pressure 131/91 130/85 125/75 Blood Pressure Mean O2 Sat by Pulse Oximetry (%) Oxygen Delivery Method 11/05/16 11/06/16 11/06/16 22:00 14:30 15:00 Ventilator Placement Temperature 99.1 F Pulse Rate 109 H 88 116 H Pulse Rhythm [ Apical] Respiratory Rate Blood Pressure 123/76 148/101 124/87 Blood Pressure Mean O2 Sat by Pulse Oximetry (%) Oxygen Delivery Method 11/06/16 11/06/16 11/06/16 15:05 18:05 20:40 Ventilator Placement Temperature 98.2 F Pulse Rate 116 H 74 168 H Pulse Rhythm [ Apical] Respiratory Rate Blood Pressure 124/87 161/81 164/91 Blood Pressure Mean O2 Sat by Pulse Oximetry (%) Oxygen Delivery Method 11/06/16 11/07/16 11/07/16 22:00 02:23 02:25 Ventilator Placement Temperature 99.4 F Pulse Rate 88 177 H 177 H Pulse Rhythm [ Apical] Respiratory Rate Blood Pressure 144/82 Blood Pressure Mean O2 Sat by Pulse Oximetry (%) Oxygen Delivery Method 11/07/16 11/07/16 11/07/16 03:10 04:39 07:52 Ventilator Placement Temperature Pulse Rate 98 H 102 H 100 H Pulse Rhythm [ Apical] Respiratory Rate Blood Pressure Blood Pressure Mean O2 Sat by Pulse Oximetry (%) Oxygen Delivery Method 11/07/16 11/07/16 11/07/16 10:00 10:10 11:00 Ventilator Placement Temperature Pulse Rate 110 H 87 160 H Pulse Rhythm [ Apical] Respiratory Rate Blood Pressure Blood Pressure Mean O2 Sat by Pulse Oximetry (%) Oxygen Delivery Method 11/07/16 11/08/16 11/08/16 11:19 02:00 02:16 Ventilator Placement Temperature 99.7 F H Pulse Rate 160 H 95 H 108 H Pulse Rhythm [ Apical] Respiratory Rate Blood Pressure Blood Pressure Mean O2 Sat by Pulse Oximetry (%) Oxygen Delivery Method 11/08/16 11/08/16 11/08/16 06:00 06:07 09:00 Ventilator Placement Temperature 99.9 F H Pulse Rate 92 H 92 H Pulse Rhythm [ Irregular Apical] Respiratory Rate Blood Pressure Blood Pressure Mean O2 Sat by Pulse Oximetry (%) Oxygen Delivery Method 11/08/16 11/08/16 11/08/16 09:05 10:00 10:35 Ventilator Placement Temperature Pulse Rate 165 H 110 H 110 H Pulse Rhythm [ Apical] Respiratory Rate Blood Pressure Blood Pressure Mean O2 Sat by Pulse Oximetry (%) Oxygen Delivery Method 11/08/16 11/08/16 11/08/16 14:34 14:48 18:00 Ventilator Placement Temperature 98.4 F 100.9 F H Pulse Rate 98 H 98 H 100 H Pulse Rhythm [ Apical] Respiratory Rate Blood Pressure Blood Pressure Mean O2 Sat by Pulse Oximetry (%) Oxygen Delivery Method 11/08/16 11/08/16 11/08/16 18:11 21:00 21:46 Ventilator Placement Temperature Pulse Rate 100 H 84 Pulse Rhythm [ Irregular Apical] Respiratory Rate Blood Pressure Blood Pressure Mean O2 Sat by Pulse Oximetry (%) Oxygen Delivery Method 11/08/16 11/09/16 11/09/16 22:00 02:00 02:15 Ventilator Placement Temperature 97.9 F Pulse Rate 84 78 82 Pulse Rhythm [ Apical] Respiratory Rate Blood Pressure Blood Pressure Mean O2 Sat by Pulse Oximetry (%) Oxygen Delivery Method 11/09/16 11/09/16 11/09/16 05:55 06:11 09:00 Ventilator Placement Temperature 98.9 F Pulse Rate 101 H 74 Pulse Rhythm [ Irregular Apical] Respiratory Rate Blood Pressure Blood Pressure Mean O2 Sat by Pulse Oximetry (%) Oxygen Delivery Method 11/09/16 11/09/16 11/09/16 10:00 10:12 11:41 Ventilator Placement Temperature 97.4 F L Pulse Rate 95 H 93 H 95 H Pulse Rhythm [ Apical] Respiratory Rate Blood Pressure Blood Pressure Mean O2 Sat by Pulse Oximetry (%) Oxygen Delivery Method 11/09/16 11/09/16 11/09/16 15:12 15:13 18:24 Ventilator Placement Temperature Pulse Rate 78 78 98 H Pulse Rhythm [ Apical] Respiratory Rate Blood Pressure Blood Pressure Mean O2 Sat by Pulse Oximetry (%) Oxygen Delivery Method 11/09/16 11/09/16 11/09/16 18:25 21:35 22:00 Ventilator Placement Temperature Pulse Rate 90 83 83 Pulse Rhythm [ Apical] Respiratory Rate Blood Pressure Blood Pressure Mean O2 Sat by Pulse Oximetry (%) Oxygen Delivery Method 11/10/16 11/10/16 11/10/16 14:51 14:57 17:36 Ventilator Placement Temperature 99.4 F Pulse Rate 102 H 100 H 81 Pulse Rhythm [ Apical] Respiratory Rate Blood Pressure Blood Pressure Mean O2 Sat by Pulse Oximetry (%) Oxygen Delivery Method 11/10/16 11/10/16 11/10/16 17:50 21:00 21:59 Ventilator Placement Temperature 98.1 F 99.1 F Pulse Rate 81 98 H 98 H Pulse Rhythm [ Apical] Respiratory Rate Blood Pressure Blood Pressure Mean O2 Sat by Pulse Oximetry (%) Oxygen Delivery Method 11/11/16 11/11/16 11/11/16 13:10 13:30 15:08 Ventilator Placement Temperature Pulse Rate 139 H 139 H 100 H Pulse Rhythm [ Apical] Respiratory Rate Blood Pressure Blood Pressure Mean O2 Sat by Pulse Oximetry (%) Oxygen Delivery Method 11/11/16 11/11/16 11/11/16 17:36 18:00 21:54 Ventilator Placement Temperature Pulse Rate 105 H 105 H 103 H Pulse Rhythm [ Apical] Respiratory Rate Blood Pressure Blood Pressure Mean O2 Sat by Pulse Oximetry (%) Oxygen Delivery Method 11/11/16 11/11/16 11/12/16 22:00 22:50 01:45 Ventilator Placement Temperature Pulse Rate 103 H 87 110 H Pulse Rhythm [ Apical] Respiratory Rate Blood Pressure Blood Pressure Mean O2 Sat by Pulse Oximetry (%) Oxygen Delivery Method 11/12/16 11/12/16 11/12/16 02:00 06:00 06:09 Ventilator Placement Temperature Pulse Rate 100 H 105 H 110 H Pulse Rhythm [ Apical] Respiratory Rate Blood Pressure Blood Pressure Mean O2 Sat by Pulse Oximetry (%) Oxygen Delivery Method 11/12/16 11/12/16 11/12/16 06:39 09:54 10:00 Ventilator Placement Temperature Pulse Rate 134 H 114 H 114 H Pulse Rhythm [ Apical] Respiratory Rate Blood Pressure Blood Pressure Mean O2 Sat by Pulse Oximetry (%) Oxygen Delivery Method 11/12/16 11/12/16 11/12/16 10:05 13:28 13:48 Ventilator Placement Temperature Pulse Rate 75 132 H 130 H Pulse Rhythm [ Apical] Respiratory Rate Blood Pressure Blood Pressure Mean O2 Sat by Pulse Oximetry (%) Oxygen Delivery Method 11/12/16 11/12/16 11/12/16 15:45 18:45 21:29 Ventilator Placement Temperature Pulse Rate 112 H 110 H 105 H Pulse Rhythm [ Apical] Respiratory Rate Blood Pressure Blood Pressure Mean O2 Sat by Pulse Oximetry (%) Oxygen Delivery Method 11/12/16 11/13/16 11/13/16 21:42 14:20 18:56 Ventilator Placement Temperature Pulse Rate 105 H 128 H 99 H Pulse Rhythm [ Apical] Respiratory Rate Blood Pressure Blood Pressure Mean O2 Sat by Pulse Oximetry (%) Oxygen Delivery Method 11/13/16 11/14/16 11/14/16 21:19 06:00 10:21 Ventilator Placement Temperature Pulse Rate 108 H 78 86 Pulse Rhythm [ Apical] Respiratory Rate Blood Pressure Blood Pressure Mean O2 Sat by Pulse Oximetry (%) Oxygen Delivery Method 11/14/16 11/14/16 11/14/16 10:22 10:37 10:52 Ventilator Placement Temperature Pulse Rate 85 100 H 100 H Pulse Rhythm [ Apical] Respiratory Rate Blood Pressure Blood Pressure Mean O2 Sat by Pulse Oximetry (%) Oxygen Delivery Method Laboratory Tests 10/15/16 10/15/16 10/15/16 22:23 22:23 22:23 WBC 9.3 RBC Hgb 13.0 Hct 40.2 Plt Count 204 Neutrophils % 90.2 H D Lymphocytes % 5.9 L D Monocytes % 3.7 L INR 1.27 H ABG pH ABG pCO2 at Pt Temp ABG pO2 at Pt Temp ABG HCO3 ABG O2 Sat (Measured) ABG O2 Content ABG Base Excess Sodium 145 Potassium 3.9 Chloride 98 Carbon Dioxide 38 H Anion Gap BUN 14 D Creatinine 0.4 L D Random Glucose 241 H D Lactic Acid Calcium 8.4 L Phosphorus Magnesium TIBC Iron Saturation Ferritin Total Bilirubin AST 74 H D ALT 77 D Alkaline Phosphatase Troponin I < 0.02 B-Natriuretic Peptide Total Protein Albumin 2.6 L HDL Cholesterol 10/15/16 10/15/16 10/16/16 22:23 23:03 01:20 WBC RBC Hgb Hct Plt Count Neutrophils % Lymphocytes % Monocytes % INR ABG pH 7.58 H D ABG pCO2 at Pt Temp 38.9 D ABG pO2 at Pt Temp 172.0 H* ABG HCO3 36.3 H ABG O2 Sat (Measured) 99.4 H ABG O2 Content 18.0 ABG Base Excess 12.9 H Sodium Potassium Chloride Carbon Dioxide Anion Gap BUN Creatinine Random Glucose Lactic Acid 4.9 H* 3.4 H* Calcium Phosphorus Magnesium TIBC Iron Saturation Ferritin Total Bilirubin AST ALT Alkaline Phosphatase Troponin I B-Natriuretic Peptide Total Protein Albumin HDL Cholesterol 10/16/16 10/16/16 10/16/16 01:30 01:32 05:10 WBC 10.1 H RBC Hgb 12.2 Hct 37.4 Plt Count 187 Neutrophils % Lymphocytes % Monocytes % INR ABG pH 7.58 H ABG pCO2 at Pt Temp 36.9 ABG pO2 at Pt Temp 110.0 H D ABG HCO3 34.0 H ABG O2 Sat (Measured) 98.9 ABG O2 Content 17.6 ABG Base Excess 11.4 H Sodium Potassium Chloride Carbon Dioxide Anion Gap BUN Creatinine Random Glucose 158 H D Lactic Acid Calcium Phosphorus Magnesium TIBC Iron Saturation Ferritin Total Bilirubin AST ALT Alkaline Phosphatase Troponin I B-Natriuretic Peptide Total Protein Albumin HDL Cholesterol 10/16/16 10/16/16 10/16/16 05:10 05:10 18:20 WBC RBC Hgb Hct Plt Count Neutrophils % Lymphocytes % Monocytes % INR 1.42 H ABG pH ABG pCO2 at Pt Temp ABG pO2 at Pt Temp ABG HCO3 ABG O2 Sat (Measured) ABG O2 Content ABG Base Excess Sodium 143 145 Potassium 2.8 L* D 3.5 D Chloride 102 104 Carbon Dioxide 34 H 34 H Anion Gap BUN 13 11 Creatinine 0.3 L D 0.4 L D Random Glucose Lactic Acid Calcium 8.5 Phosphorus 0.7 L* 3.7 D Magnesium TIBC Iron Saturation Ferritin Total Bilirubin AST 64 H ALT 78 Alkaline Phosphatase Troponin I 0.03 B-Natriuretic Peptide 835.38 H Total Protein Albumin 2.6 L HDL Cholesterol 10/17/16 10/17/16 10/17/16 05:25 05:25 05:25 WBC 12.8 H RBC Hgb 12.5 Hct 37.7 Plt Count 156 Neutrophils % Lymphocytes % Monocytes % INR 1.32 H ABG pH ABG pCO2 at Pt Temp ABG pO2 at Pt Temp ABG HCO3 ABG O2 Sat (Measured) ABG O2 Content ABG Base Excess Sodium 147 H Potassium 3.5 Chloride 104 Carbon Dioxide 35 H Anion Gap BUN 14 D Creatinine 0.6 D Random Glucose Lactic Acid Calcium Phosphorus Magnesium TIBC Iron Saturation Ferritin Total Bilirubin AST 44 H D ALT 63 Alkaline Phosphatase Troponin I B-Natriuretic Peptide Total Protein Albumin 2.6 L HDL Cholesterol 10/17/16 10/18/16 10/18/16 07:25 05:15 05:15 WBC 15.2 H RBC Hgb Hct Plt Count Neutrophils % Lymphocytes % Monocytes % INR 1.64 H ABG pH 7.46 H ABG pCO2 at Pt Temp 44.7 D ABG pO2 at Pt Temp 150.0 H D ABG HCO3 31.5 H ABG O2 Sat (Measured) 99.4 H ABG O2 Content ABG Base Excess Sodium Potassium Chloride Carbon Dioxide Anion Gap BUN Creatinine Random Glucose Lactic Acid Calcium Phosphorus Magnesium TIBC Iron Saturation Ferritin Total Bilirubin AST ALT Alkaline Phosphatase Troponin I B-Natriuretic Peptide Total Protein Albumin HDL Cholesterol 10/18/16 10/19/16 10/19/16 05:15 05:15 05:15 WBC 11.9 H RBC Hgb Hct Plt Count Neutrophils % Lymphocytes % Monocytes % INR 1.58 H ABG pH ABG pCO2 at Pt Temp ABG pO2 at Pt Temp ABG HCO3 ABG O2 Sat (Measured) ABG O2 Content ABG Base Excess Sodium 144 Potassium 2.8 L* Chloride Carbon Dioxide 32 Anion Gap 10 BUN Creatinine Random Glucose 141 H D Lactic Acid Calcium 8.4 L Phosphorus Magnesium TIBC Iron Saturation Ferritin Total Bilirubin AST ALT Alkaline Phosphatase Troponin I B-Natriuretic Peptide Total Protein 6.2 L Albumin 2.6 L HDL Cholesterol 10/19/16 10/19/16 10/20/16 05:15 07:10 05:20 WBC 12.0 H RBC 3.53 L Hgb 10.6 L Hct Plt Count Neutrophils % Lymphocytes % Monocytes % 10.3 H INR ABG pH 7.47 H ABG pCO2 at Pt Temp ABG pO2 at Pt Temp 138.0 H D ABG HCO3 29.3 H ABG O2 Sat (Measured) 99.4 H ABG O2 Content ABG Base Excess 5.5 H Sodium Potassium Chloride Carbon Dioxide Anion Gap BUN Creatinine Random Glucose 135 H Lactic Acid Calcium 8.0 L Phosphorus 2.3 L Magnesium TIBC Iron Saturation Ferritin Total Bilirubin AST ALT Alkaline Phosphatase Troponin I B-Natriuretic Peptide Total Protein 5.7 L Albumin 2.2 L HDL Cholesterol 10/20/16 10/21/16 10/21/16 05:20 05:20 05:20 WBC 11.4 H RBC 3.46 L Hgb 10.4 L Hct 31.2 L Plt Count Neutrophils % Lymphocytes % Monocytes % INR ABG pH ABG pCO2 at Pt Temp ABG pO2 at Pt Temp ABG HCO3 ABG O2 Sat (Measured) ABG O2 Content ABG Base Excess Sodium Potassium Chloride Carbon Dioxide Anion Gap BUN 17 Creatinine 0.5 L Random Glucose 140 H D Lactic Acid Calcium 7.9 L Phosphorus Magnesium TIBC Iron Saturation Ferritin Total Bilirubin 0.4 D AST 11 L D ALT 19 D Alkaline Phosphatase Troponin I B-Natriuretic Peptide Total Protein Albumin HDL Cholesterol 35 L 10/22/16 10/22/16 10/23/16 05:15 05:15 05:20 WBC 11.2 H 10.5 H RBC Hgb 10.5 L 9.6 L Hct 32.1 L 28.3 L Plt Count Neutrophils % Lymphocytes % Monocytes % INR ABG pH ABG pCO2 at Pt Temp ABG pO2 at Pt Temp ABG HCO3 ABG O2 Sat (Measured) ABG O2 Content ABG Base Excess Sodium Potassium Chloride Carbon Dioxide Anion Gap BUN Creatinine Random Glucose 152 H Lactic Acid Calcium Phosphorus Magnesium TIBC Iron Saturation Ferritin Total Bilirubin AST ALT Alkaline Phosphatase Troponin I B-Natriuretic Peptide Total Protein Albumin HDL Cholesterol 10/23/16 10/24/16 10/25/16 05:20 05:30 05:05 WBC 12.4 H 15.1 H RBC 3.24 L Hgb 9.6 L D Hct 29.6 L Plt Count Neutrophils % Lymphocytes % Monocytes % INR ABG pH ABG pCO2 at Pt Temp ABG pO2 at Pt Temp ABG HCO3 ABG O2 Sat (Measured) ABG O2 Content ABG Base Excess Sodium Potassium Chloride Carbon Dioxide Anion Gap BUN Creatinine Random Glucose 150 H Lactic Acid Calcium Phosphorus Magnesium TIBC Iron Saturation Ferritin Total Bilirubin AST ALT Alkaline Phosphatase Troponin I B-Natriuretic Peptide Total Protein Albumin HDL Cholesterol 10/25/16 10/26/16 10/26/16 05:05 05:10 05:10 WBC 17.9 H RBC Hgb Hct Plt Count Neutrophils % 95.2 H Lymphocytes % 2.8 L Monocytes % 1.8 L INR ABG pH ABG pCO2 at Pt Temp ABG pO2 at Pt Temp ABG HCO3 ABG O2 Sat (Measured) ABG O2 Content ABG Base Excess Sodium Potassium Chloride Carbon Dioxide Anion Gap BUN 28 H 33 H Creatinine 0.4 L 0.4 L Random Glucose 143 H Lactic Acid Calcium Phosphorus Magnesium TIBC Iron Saturation Ferritin Total Bilirubin AST ALT Alkaline Phosphatase Troponin I B-Natriuretic Peptide Total Protein Albumin HDL Cholesterol 10/27/16 10/27/16 10/28/16 05:15 05:15 05:15 WBC 17.7 H 17.0 H RBC Hgb Hct Plt Count Neutrophils % Lymphocytes % Monocytes % INR ABG pH ABG pCO2 at Pt Temp ABG pO2 at Pt Temp ABG HCO3 ABG O2 Sat (Measured) ABG O2 Content ABG Base Excess Sodium 148 H Potassium 3.5 Chloride 110 H Carbon Dioxide 29 Anion Gap 9 BUN Creatinine Random Glucose Lactic Acid Calcium Phosphorus Magnesium TIBC Iron Saturation Ferritin Total Bilirubin AST ALT Alkaline Phosphatase Troponin I B-Natriuretic Peptide Total Protein Albumin HDL Cholesterol 10/28/16 10/29/16 10/30/16 05:15 05:15 05:15 WBC 17.0 H 14.0 H RBC 3.38 L 3.03 L Hgb 9.2 L D Hct 27.9 L Plt Count Neutrophils % Lymphocytes % Monocytes % INR ABG pH ABG pCO2 at Pt Temp ABG pO2 at Pt Temp ABG HCO3 ABG O2 Sat (Measured) ABG O2 Content ABG Base Excess Sodium 149 H Potassium Chloride Carbon Dioxide Anion Gap BUN 33 H Creatinine 0.4 L D Random Glucose Lactic Acid Calcium Phosphorus Magnesium TIBC Iron Saturation Ferritin Total Bilirubin AST ALT Alkaline Phosphatase Troponin I B-Natriuretic Peptide Total Protein Albumin HDL Cholesterol 10/30/16 10/31/16 10/31/16 05:15 05:20 05:20 WBC 14.7 H RBC 3.09 L Hgb 9.2 L Hct 28.2 L Plt Count Neutrophils % Lymphocytes % Monocytes % INR ABG pH ABG pCO2 at Pt Temp ABG pO2 at Pt Temp ABG HCO3 ABG O2 Sat (Measured) ABG O2 Content ABG Base Excess Sodium 147 H 144 Potassium 3.2 L 3.4 L Chloride Carbon Dioxide 33 H Anion Gap 5 L BUN 22 H Creatinine 0.4 L D Random Glucose 194 H Lactic Acid Calcium 8.0 L Phosphorus 1.9 L Magnesium TIBC Iron Saturation Ferritin Total Bilirubin AST ALT Alkaline Phosphatase Troponin I B-Natriuretic Peptide Total Protein Albumin 2.0 L HDL Cholesterol 11/01/16 11/02/16 11/02/16 05:15 07:15 07:15 WBC 16.1 H 15.3 H RBC Hgb Hct Plt Count Neutrophils % Lymphocytes % Monocytes % INR ABG pH ABG pCO2 at Pt Temp ABG pO2 at Pt Temp ABG HCO3 ABG O2 Sat (Measured) ABG O2 Content ABG Base Excess Sodium Potassium Chloride Carbon Dioxide 36 H Anion Gap 5 L BUN Creatinine Random Glucose Lactic Acid Calcium Phosphorus Magnesium TIBC Iron Saturation Ferritin Total Bilirubin AST ALT Alkaline Phosphatase Troponin I B-Natriuretic Peptide Total Protein Albumin HDL Cholesterol 11/03/16 11/03/16 11/04/16 06:15 06:15 06:20 WBC 17.3 H 11.5 H D RBC 3.45 L 3.30 L Hgb 10.2 L 9.9 L Hct 31.1 L 29.8 L Plt Count Neutrophils % Lymphocytes % Monocytes % INR ABG pH ABG pCO2 at Pt Temp ABG pO2 at Pt Temp ABG HCO3 ABG O2 Sat (Measured) ABG O2 Content ABG Base Excess Sodium Potassium 3.2 L Chloride Carbon Dioxide Anion Gap BUN Creatinine Random Glucose 128 H Lactic Acid Calcium 7.9 L Phosphorus Magnesium TIBC Iron Saturation Ferritin Total Bilirubin AST ALT Alkaline Phosphatase Troponin I B-Natriuretic Peptide Total Protein Albumin HDL Cholesterol 11/04/16 11/06/16 11/06/16 06:20 07:00 07:00 WBC 8.7 RBC 3.22 L Hgb 9.7 L Hct 29.0 L Plt Count Neutrophils % Lymphocytes % Monocytes % INR ABG pH ABG pCO2 at Pt Temp ABG pO2 at Pt Temp ABG HCO3 ABG O2 Sat (Measured) ABG O2 Content ABG Base Excess Sodium Potassium 3.3 L 3.0 L Chloride Carbon Dioxide Anion Gap BUN Creatinine < 0.2 L Random Glucose Lactic Acid Calcium Phosphorus Magnesium TIBC Iron Saturation Ferritin Total Bilirubin AST ALT Alkaline Phosphatase 130 H D Troponin I B-Natriuretic Peptide Total Protein 5.3 L Albumin 2.0 L HDL Cholesterol 11/06/16 11/07/16 11/07/16 17:45 06:00 06:10 WBC 13.8 H D RBC 3.40 L 3.17 L Hgb 10.5 L 9.4 L D Hct 30.9 L 28.5 L Plt Count Neutrophils % Lymphocytes % Monocytes % INR ABG pH ABG pCO2 at Pt Temp ABG pO2 at Pt Temp ABG HCO3 ABG O2 Sat (Measured) ABG O2 Content ABG Base Excess Sodium Potassium 2.8 L* Chloride Carbon Dioxide Anion Gap BUN Creatinine Random Glucose Lactic Acid Calcium 7.8 L Phosphorus 1.9 L D Magnesium 1.7 L TIBC Iron Saturation Ferritin Total Bilirubin AST ALT Alkaline Phosphatase Troponin I B-Natriuretic Peptide Total Protein 5.1 L Albumin 2.0 L HDL Cholesterol 11/07/16 11/08/16 11/08/16 13:00 06:40 06:40 WBC 19.1 H D 14.7 H RBC Hgb Hct Plt Count Neutrophils % Lymphocytes % Monocytes % INR ABG pH ABG pCO2 at Pt Temp ABG pO2 at Pt Temp ABG HCO3 ABG O2 Sat (Measured) ABG O2 Content ABG Base Excess Sodium Potassium 2.9 L* Chloride Carbon Dioxide Anion Gap BUN Creatinine Random Glucose Lactic Acid Calcium Phosphorus Magnesium TIBC Iron Saturation Ferritin Total Bilirubin AST ALT Alkaline Phosphatase Troponin I B-Natriuretic Peptide Total Protein Albumin HDL Cholesterol 11/08/16 11/08/16 11/09/16 13:05 13:05 06:00 WBC 16.7 H 11.6 H D RBC Hgb Hct Plt Count Neutrophils % Lymphocytes % Monocytes % INR ABG pH ABG pCO2 at Pt Temp ABG pO2 at Pt Temp ABG HCO3 ABG O2 Sat (Measured) ABG O2 Content ABG Base Excess Sodium Potassium 3.7 D Chloride Carbon Dioxide Anion Gap BUN Creatinine Random Glucose Lactic Acid Calcium Phosphorus Magnesium TIBC Iron Saturation Ferritin Total Bilirubin AST ALT Alkaline Phosphatase Troponin I B-Natriuretic Peptide Total Protein Albumin HDL Cholesterol 11/09/16 11/09/16 11/10/16 06:00 17:00 08:00 WBC 10.8 H 9.1 RBC Hgb 8.7 L Hct 26.0 L Plt Count Neutrophils % Lymphocytes % Monocytes % INR ABG pH ABG pCO2 at Pt Temp ABG pO2 at Pt Temp ABG HCO3 ABG O2 Sat (Measured) ABG O2 Content ABG Base Excess Sodium Potassium 2.7 L* D Chloride Carbon Dioxide Anion Gap BUN Creatinine Random Glucose Lactic Acid Calcium Phosphorus Magnesium TIBC Iron Saturation Ferritin Total Bilirubin AST ALT Alkaline Phosphatase Troponin I B-Natriuretic Peptide Total Protein Albumin HDL Cholesterol 11/10/16 11/10/16 11/10/16 08:00 17:30 17:30 WBC 9.7 RBC Hgb 9.0 L Hct 26.9 L Plt Count Neutrophils % Lymphocytes % Monocytes % INR ABG pH ABG pCO2 at Pt Temp ABG pO2 at Pt Temp ABG HCO3 ABG O2 Sat (Measured) ABG O2 Content ABG Base Excess Sodium Potassium 2.6 L* 2.8 L* Chloride Carbon Dioxide Anion Gap BUN Creatinine Random Glucose Lactic Acid Calcium Phosphorus Magnesium TIBC Iron Saturation Ferritin Total Bilirubin AST ALT Alkaline Phosphatase Troponin I B-Natriuretic Peptide Total Protein Albumin HDL Cholesterol 11/11/16 11/11/16 11/12/16 07:10 21:05 06:00 WBC 7.7 RBC Hgb 9.1 L Hct 27.6 L Plt Count Neutrophils % Lymphocytes % Monocytes % INR ABG pH ABG pCO2 at Pt Temp ABG pO2 at Pt Temp ABG HCO3 ABG O2 Sat (Measured) ABG O2 Content ABG Base Excess Sodium Potassium 2.6 L* 3.1 L Chloride Carbon Dioxide Anion Gap BUN 8 Creatinine 0.2 L Random Glucose Lactic Acid Calcium Phosphorus Magnesium TIBC Iron Saturation Ferritin Total Bilirubin AST ALT Alkaline Phosphatase Troponin I B-Natriuretic Peptide Total Protein Albumin HDL Cholesterol 11/12/16 11/13/16 11/13/16 06:00 06:00 06:00 WBC 6.5 RBC Hgb 7.5 L D Hct 23.1 L D Plt Count Neutrophils % Lymphocytes % Monocytes % INR ABG pH ABG pCO2 at Pt Temp ABG pO2 at Pt Temp ABG HCO3 ABG O2 Sat (Measured) ABG O2 Content ABG Base Excess Sodium 146 H 148 H Potassium 3.0 L 3.0 L Chloride Carbon Dioxide Anion Gap BUN Creatinine < 0.2 L Random Glucose Lactic Acid Calcium Phosphorus Magnesium TIBC Iron Saturation Ferritin Total Bilirubin AST ALT Alkaline Phosphatase Troponin I B-Natriuretic Peptide Total Protein Albumin HDL Cholesterol 11/13/16 11/14/16 11/14/16 13:25 06:38 06:38 WBC RBC Hgb 8.4 L D Hct 26.0 L Plt Count Neutrophils % Lymphocytes % Monocytes % INR ABG pH ABG pCO2 at Pt Temp ABG pO2 at Pt Temp ABG HCO3 ABG O2 Sat (Measured) ABG O2 Content ABG Base Excess Sodium 146 H Potassium Chloride Carbon Dioxide 38 H Anion Gap 6 L BUN Creatinine < 0.2 L Random Glucose 109 H Lactic Acid Calcium Phosphorus Magnesium TIBC 121 L Iron Saturation 50 Ferritin 284.852 H Total Bilirubin AST ALT Alkaline Phosphatase Troponin I B-Natriuretic Peptide Total Protein Albumin HDL Cholesterol 11/14/16 11/14/16 11/15/16 06:38 13:45 07:30 WBC 6.1 RBC Hgb 7.6 L Hct 23.4 L Plt Count Neutrophils % Lymphocytes % Monocytes % INR ABG pH ABG pCO2 at Pt Temp ABG pO2 at Pt Temp ABG HCO3 ABG O2 Sat (Measured) ABG O2 Content ABG Base Excess Sodium Potassium 3.3 L 3.2 L Chloride Carbon Dioxide Anion Gap BUN Creatinine Random Glucose Lactic Acid Calcium Phosphorus Magnesium TIBC Iron Saturation Ferritin Total Bilirubin AST ALT Alkaline Phosphatase Troponin I B-Natriuretic Peptide Total Protein Albumin HDL Cholesterol 11/15/16 12:20 WBC RBC Hgb Hct Plt Count Neutrophils % Lymphocytes % Monocytes % INR ABG pH ABG pCO2 at Pt Temp ABG pO2 at Pt Temp ABG HCO3 ABG O2 Sat (Measured) ABG O2 Content ABG Base Excess Sodium Potassium 3.5 Chloride Carbon Dioxide Anion Gap BUN Creatinine Random Glucose Lactic Acid Calcium Phosphorus Magnesium TIBC Iron Saturation Ferritin Total Bilirubin AST ALT Alkaline Phosphatase Troponin I B-Natriuretic Peptide Total Protein Albumin HDL Cholesterol Microbiology 11/07/16 19:00 Sputum - Endotrachea Suction/Ventilator Gram Stain - Final 11/07/16 19:00 Sputum - Endotrachea Suction/Ventilator Sputum Culture - Final Pseudomonas Aeruginosa Yeast Like Organism 11/07/16 04:15 Urine - Urine - Catheterized Urine Culture - Final NO GROWTH OBTAINED 11/07/16 04:15 Blood - Peripheral Venous Blood Culture - Final NO GROWTH AFTER 5 DAYS INCUBATION 11/07/16 04:15 Blood - Peripheral Venous Blood Culture - Final NO GROWTH AFTER 5 DAYS INCUBATION 11/07/16 02:33 Stool Clostridium difficile Antigen (KELL) - Final 11/07/16 02:33 Stool Clostridium difficile Toxin Assay - Final 11/05/16 07:50 Blood - Peripheral Venous Blood Culture - Final NO GROWTH AFTER 5 DAYS INCUBATION 11/05/16 07:40 Blood - Peripheral Venous Blood Culture - Final NO GROWTH AFTER 5 DAYS INCUBATION 11/04/16 20:00 Urine - Urine - Catheterized Urine Culture - Final NO GROWTH OBTAINED 10/29/16 10:12 Blood - Peripheral Venous Blood Culture - Final NO GROWTH AFTER 5 DAYS INCUBATION 10/29/16 09:45 Blood - Peripheral Venous Blood Culture - Final NO GROWTH AFTER 5 DAYS INCUBATION 10/29/16 09:00 Urine - Urine Carrillo Urine Culture - Final Pseudomonas Aeruginosa 10/29/16 09:00 Sputum - Endotrachea Suction/Ventilator Gram Stain - Final 10/29/16 09:00 Sputum - Endotrachea Suction/Ventilator Sputum Culture - Final Klebsiella Pneumoniae Pseudomonas Aeruginosa Yeast Like Organism 10/23/16 11:25 Sputum - Endotrachea Suction/Ventilator Gram Stain - Final 10/23/16 11:25 Sputum - Endotrachea Suction/Ventilator Sputum Culture - Final Enterobacter Cloacae 10/23/16 09:57 Blood - Peripheral Venous Blood Culture - Final NO GROWTH AFTER 5 DAYS INCUBATION 10/23/16 09:23 Blood - Peripheral Venous Blood Culture - Final NO GROWTH AFTER 5 DAYS INCUBATION 10/16/16 22:00 Urine For Antigen Detection Legionella Antigen - Final 10/16/16 22:00 Urine For Antigen Detection Streptococcus pneumoniae Antigen (M - Final 10/16/16 22:00 Sputum - Endotrachea Suction/Ventilator Gram Stain - Final 10/16/16 22:00 Sputum - Endotrachea Suction/Ventilator Sputum Culture - Final Yeast Like Organism 10/16/16 01:35 Nasopharyngeal Swab Respiratory Virus (PCR) - Final 10/15/16 22:23 Urine - Urine Carrillo Urine Culture - Final NO GROWTH OBTAINED 10/15/16 22:23 Blood - Peripheral Venous Blood Culture - Final NO GROWTH AFTER 5 DAYS INCUBATION 10/15/16 22:23 Blood - Peripheral Venous Blood Culture - Final NO GROWTH AFTER 5 DAYS INCUBATION Imaging 10/15/16: CXR: Left retrocardiac infiltrate/atelectasis with pleural effusion 10/15/16: EKG: normal sinus rhythm, possible LA enlargement, sinus rhythm has replaced afib, nonspecific ST depression 10/16/16: Vascular study: no evidence of DVT 10/17/16: CXR: progressive L base changes 10/17/16: ECHO: regional wall motion abnormalities can't be excluded, pleural effusion is present 10/18/16: CXR: no significant changes since previous CXR 10/22/16: CXR: shift of mediastinal structures to L with fluid and atelectasis in L hemithorax. R lung is clear. Since 10/19, increased changes in L lung 10/23/16: CXR: total opacification L hemithorax with L mediastinal shift 10/24/16: CXR: no significant change since previous CXR 10/26/16: CXR: generalized abdominal distention compatible with ileus with NG tube tip in stomach/LUQ and dense L base which could represent fluid, atelectasis, and/or infiltrate. Some atelectasis at R base. 10/27/16: EKG: afib with RVR, marked ST abnormality, possible inferolateral subendocardial injury. 10/27/16: CXR: progressive changes L hemithorax with mediastinal shift of L. Indicates atelectasis with some fluid and or infiltrate. 10/29/16: PEG placement 10/30/16: CXR: moderate L pleural effusion, partial atelectasis of L lung, atelectatic changes in R lower lobe. R pleural effusion cannot be excluded 10/31/16: CXR: improved aeration of L lung, L pleural effusion with retrocardiac atelectasis. Airspace opacities in L midlung field. Increased lung markings noted in R lower lobe. Haziness in R lung base may be attributed to pleural effusion. 11/04/16: Abdominal Xray: abdominal distention compatible with ileus 11/05/16: CXR: new NG tube in place 11/05/16: Abdominal Xray: air filled slightly dilated large and small bowel loops compatible with ileus. 11/06/16: CXR: increased consolidation/density of L lower lobe with small L pleural effusion. INterval slight increase interstitial and airspace opacities in R lung base with questionable small R pleural effusion 11/07/16: EKG: afib with RVR 11/07/16: EKG: sinus tachycardia, nonspecific T wave abnormality, abnormal EKG when compared to EKG done earlier in [facility]. Sinus rhythm has replaced afib. 11/07/16: Abdominal Xray: air in colon, small bowel with less distension. Airspace opacities noted in R cardiophrenic angle clinically correlate with infectious process 11/12/16: CXR: better evaluation of L lung with residual consolidation and atelectasis in L lung base, medially. Mild atelectatic changes and probable infiltrates again seen in R lung base. Trach tube is in satisfactory position. HOSPITAL COURSE: Date of Admission:10/15/16 Date of Discharge: 11/15/16 Admit diagnosis: Pre-admission course Patient is a 56 year old female with PMHx of ALS, HTN, Hyperthyroidism, MDD who was BIBEMS for respiratory failure s/p intubation en route. As per patient's family, around 18:00 today (10/15/16) they went to visit her and noticed she was lethargic and short of breath. She then took a nap and when she woke up, she was altered with worsening shortness of breath and increasing cough. They called 911 due to worsening respiratory failure, and was then intubated. When she arrived in the ED, patient went into cardiac arrest and ACLS was initiated. Patient had ROSC within five minutes and was found to be hypotensive. Patient was recently admitted and discharged (10/12/16) for acute respiratory failure likely from worsening ALS. Hospital course Pt was managed for numerous conditions while on the floor: Cardiac s/p cardiac arrest, lactic acidosis -This resolved while pt was in ICU. Cardiac workup was done, and trops were negative x 2. ECHO was also done which stated that wall motion abnormalities could not be ruled out. Pt was seen by cardio. Jeremysmodilia mccann While in ICU, and on floor, pt's rate was stabilzed. When pt's rate was uncontrolled, she was kept on Lopressor 5mg IVPB q4h standing and lopressor 5mg IVPB q4h PRN. However, when pt rate became controlled, she was maintained on : Cardiazem 30mg GT TID, digoxin 0.125 mg PO daily, Lopressor 50mg PO TID, elliquis 5mg PO BID (for anticoagulation). Pulmonary Acute on chronic respiratory failure secondary to ALS Pt failed numerous CPAP trials, and thus had trach done on 10/25/16. She was also managed on duonebs 1amp PRN, and scopolamine patch to aid with increased secretions. Fever secondary to atelectasis Pt received course of zosyn and vancomycin. Pseudomonas was found in her sputum. Upon discharge, pt had completed levaquin course of 500mg GT for three days. GI Nutritional needs PEG was placed 10/30/16. Ileus NG tube was placed initially to decompress bowel, and pt was kept NPO. Once NG was d/c, pt was decompressed using suction from PEG tube. Ileus resolved as pt' s abdominal distension improved, and BMs increased. Diarrhea C diff toxin test was found to be negative. Heme Blood draining from PEG Towards end of her hospitalization, pt experienced bleeding from PEG site. For this reason, she was started on IV protonix 40mg BID as a prophylactic measure. Her H&H was also monitored, as her Hb fluctuated between 8.5 and 7.5. Electrolytes Hypokalemia Pt experienced drops in K to a minimum level of 2.8. She was given 3-4 runs of KCl 10mEq IVPB when this was experienced, and a standing dose of KCl 20MEq via PEG was added to her regime. Upon d/c, her K level was WNL. Minutes to complete discharge: 32 Discharge Summary Reason For Visit: RESPIRATORY ARREST Current Active Problems Fever (Acute) Pneumonia (Acute) Respiratory failure requiring intubation (Acute) Diastolic CHF (Chronic) Status post gastrostomy (Chronic) Status post insertion of percutaneous endoscopic gastrostomy (PEG) tube (Chronic ) Status post tracheostomy (Chronic) Condition: Stable - Instructions Diet, Activity, Other Instructions: You were recently in the hospital due to a worsening respiratory condition that resulted from your ALS, along with other changes in your condition. [facility] [place] to continue your care. This has been discussed with your family. While you are there, you will be continued on the same medications you are being discharged on. If you develop any new shortness of breath, chest pain, or new symptoms, you will be brought to the hospital. If your family has any questions concerning your care, they should feel free to reach out to our staff here. We hope you feel better soon. Referrals: [facility] [Outside] Hector Carr MD [Staff Physician] - (neurology) Burt Palmer MD [Staff Physician] - (cardiology) STAFF,NOT ON [Primary Care Provider] - Disposition: CUSTODIAL FACILITY - Home Medications Comprehensive Discharge Medication List: Ambulatory Orders Methimazole 10 mg PO DAILY 10/15/16 Mirtazapine [Remeron -] 15 mg PO DAILY 10/15/16 Sennosides [Senna] 8.6 mg PO DAILY 10/15/16 Albuterol 2.5/Ipratropium 0.5 [Duoneb -] 1 amp NEB QIDR amp 11/15/16 Amino Acids/Protein Hydrolys [Prosource No Carb Liquid Pkt] 30 ml PO BID@0800, 1730 packet 11/15/16 Apixaban [Eliquis -] 5 mg PO BID tablet 11/15/16 Digoxin [Lanoxin -] 0.125 mg PO DAILY tablet 11/15/16 Diltiazem [Cardizem -] 60 mg PEG TID tablet 11/15/16 Famotidine [Pepcid -] 20 mg PEG DAILY #30 tablet 11/15/16 Furosemide [Lasix -] 20 mg PEG DAILY tablet 11/15/16 Lidocaine 2% Jelly [Xylocaine 2% Jelly] 1 applic TP Q4H PRN #0 applic 11/15/16 Metoprolol Tartrate [Lopressor -] 50 mg PO TID tablet 11/15/16 Potassium Chloride [Potassium Chloride Oral Liquid] 20 meq PEG TID #1 bottle Scopolamine Hydrobromide [Transderm-Scop -] 1 patch TD Q72H patch 11/15/16 This patient is new to me today: No Emergency Visit: No Critical Care patient: No - Discharge Referral Referred to [facility] No
== END 2016-11-15 17:23 | DRG 4 ==
LOC: JER 21:15 → JICU 23:48 → UNDOADMIN 23:58 → J5S 11-01 20:39
PROVIDERS: ADMIT Internal Medicine; ATTEND Internal Medicine
PROC: 5A1955Z Respiratory Ventilation, Greater than 96 Consecutive Hours (ICD-10-PCS; 2016-10-15)
PROC: 0BH17EZ Insertion of Endotracheal Airway into Trachea, Via Natural or Artificial Opening (ICD-10-PCS; 2016-10-15)
PROC: 5A09357 Assistance with Respiratory Ventilation, Less than 24 Consecutive Hours, Continuous Positive Airway Pressure (ICD-10-PCS; 2016-10-16)
PROC: 3E0336Z Introduction of Nutritional Substance into Peripheral Vein, Percutaneous Approach (ICD-10-PCS; 2016-10-17)
PROC: 0BCB8ZZ Extirpation of Matter from Left Lower Lobe Bronchus, Via Natural or Artificial Opening Endoscopic (ICD-10-PCS; 2016-10-24)
PROC: 0B113F4 Bypass Trachea to Cutaneous with Tracheostomy Device, Percutaneous Approach (ICD-10-PCS; principal; 2016-10-25)
PROC: 30233H1 Transfusion of Nonautologous Whole Blood into Peripheral Vein, Percutaneous Approach (ICD-10-PCS; 2016-10-28)
PROC: 0DH63UZ Insertion of Feeding Device into Stomach, Percutaneous Approach (ICD-10-PCS; 2016-10-29)
DX: J96.21 Acute and chronic respiratory failure with hypoxia (principal); J69.0 Pneumonitis due to inhalation of food and vomit; I46.9 Cardiac arrest, cause unspecified; A41.9 Sepsis, unspecified organism; G12.21 Amyotrophic lateral sclerosis; E87.2 Acidosis; E87.0 Hyperosmolality and hypernatremia; I48.92 Unspecified atrial flutter; J98.11 Atelectasis; T17.590A Other foreign object in bronchus causing asphyxiation, initial encounter; D68.8 Other specified coagulation defects; Z99.11 Dependence on respirator [ventilator] status; K56.7 Ileus, unspecified; I50.30 Unspecified diastolic (congestive) heart failure; E87.3 Alkalosis; J96.22 Acute and chronic respiratory failure with hypercapnia; B96.5 Pseudomonas (aeruginosa) (mallei) (pseudomallei) as the cause of diseases classified elsewhere; X58.XXXA Exposure to other specified factors, initial encounter; Y93.89 Activity, other specified; L89.151 Pressure ulcer of sacral region, stage 1; I10 Essential (primary) hypertension; E05.90 Thyrotoxicosis, unspecified without thyrotoxic crisis or storm; I48.0 Paroxysmal atrial fibrillation; R13.19 Other dysphagia; Z79.01 Long term (current) use of anticoagulants; D63.8 Anemia in other chronic diseases classified elsewhere; E78.5 Hyperlipidemia, unspecified; Z86.718 Personal history of other venous thrombosis and embolism; F32.9 Major depressive disorder, single episode, unspecified; Z99.3 Dependence on wheelchair; E04.9 Nontoxic goiter, unspecified; E87.6 Hypokalemia; E83.39 Other disorders of phosphorus metabolism; R19.7 Diarrhea, unspecified; F41.9 Anxiety disorder, unspecified; Z74.01 Bed confinement status
CPT/HCPCS: 36415; 36430; 36600; 71010-TC; 74000-TC; 80048; 80053; 80061; 80076; 80162; 81003; 81015; 82550; 82728; 82803; 82947; 83036; 83540; 83550; 83605; 83721; 83735; 83880; 84100; 84443; 84484; 85025; 85027; 85610; 85730; 86850; 86900; 86901; 87040; 87070; 87077; 87086; 87186; 87205; 87324; 87449; 87633; 87899; 93005; 93010; 93306-TC; 93970-TC; 94002; 94640; 97162-GP; 99284-25; C1894; G0480; J1644; P9017